=== PATIENT | male | born 1940 | race Caucasian/White ===

== ENCOUNTER 2018-07-13 10:20 | Day surgery (SDC) | payer MEDICARE ==
[~2018-07-13] VITALS: Ht 172.7 cm; Wt 70.3 kg
--- OUTSIDE RECORDS SUMMARY | ~2018-07-13 | XMS | Encounter Summary ---
Demographics + + + | Address | [address] | | | [place] [address] | + + + | Home Phone | | + + + | Preferred Language | Unknown | + + + | Marital Status | | + + + | Worship Affiliation | NON | + + + | Race | White | + + + | Ethnic Group | Not or | + + + Author + + + | Author | [facility] | + + + | Organization | [facility] | + + + | Address | Unknown | + + + | Phone | Unavailable | + + + Support + + + + + | Name | Relationship | Address | Phone | + + + + + | Elizabeth Welch | ECON | [address] | | | | | [place] | | | | | [phone] | | + + + + + Care Team Providers + +------+ + | Care Regulatory Process Manager Name | Role | Phone | + +------+ + | Doyle Johnson MD | PCP | | + +------+ + Reason for Visit + + + | Reason | Comments | + + + | Shoulder pain | | + + + Encounter Details +--------+---------+ + + + | Date | Type | Department | Care Team | Description | +--------+---------+ + + + | 08/14/ | Office | [place] [facility] | Rupesh, | Shoulder pain, right | | 2013 | Visit | Therapy Services at | Alise, PT [address] | (Primary Dx) | | | | [facility] | [address] | | | | | [address] | [place], [place] | | | | | Mailcode: [id number] | [phone] | | | | | [facility] | | | | | | and Healing, 1st | | | | | | floor [place], [place] | | | | | | [address] | | | | | | [phone] | | | +--------+---------+ + + + [...] documented as of this encounter Progress Notes Alise Washington, PT - 09/22/2013 9:46 AM PDT [id number] KEVON WELCH Date of : 1940 Start of care: 05/19/2013 Date of onset: 03/21/2013 Referring/Attending Practitioner: Misael Myers Primary/Referral Diagnosis/ICD-9: Shoulder pain, right (primary encounter diagnosis) Insurance: Payor: [employer] Plan: [employer] Product Type: P PO Service period from: 05/19/2013 to 01/18/2014 Number visits used/authorized: 08/20 [facility]REAT[facility] - [place]TH[place] SUBJECTIVE: Current: Notices continued gradual improvement. Now able to raise right arm as high as lef t, abduction is almost as high as other arm. Limited progress behind his back and continues to be painful. Shoulder ER improves with 2-3 stretches and is equal on both sides. Day to day things are getting easier. Can now reach and lift off of a shelf. Pain is located in posterior and lateral shoulder. History of Presenting Problem: Kevon Welch is a 72 y.o. male who is being referr ed to physical therapy with chief complaint of right shoulder pain for 2 months following he lping son carry chair up stairs. History of left shoulder surgery. History of right should er pain 15 years ago with carrying cement stones, had a rotator cuff tear at that time and w as told to "be careful" and pain went away within a year and a half. Pt is very right wisam Lund's Goals: 1. Return to full use of arm 2. Learn home exercise program OBJECTIVE: Posture/alignment/observation: rounded shoulders, mild inferior angle scapular winging RANGE OF MOTION Shoulder AROM Right Left Right 07/20/2013 Right 08/11/2013 Right 09/22/2013 Flexion 141 155 [id number] Pre 125* Post 140 145 Abduction 146 150 [id number] Pre 95* Post 132 144 ER at 90 deg abd 90 (60 at neutral) 90 79 no change Pre 48* no change 70 IR at 90 deg abd 24 75 *indicates pain with movement Pre and post relative to treatment. STRENGTH Shoulder strength Right Left flexion 4-*/5 4+/5 abduction 4-*/5 4+/5 ER 4-*/5 4+/5 IR 4-*/5 4+/5 Rhomboids Middle Trapezius Lower Trapezius Palpation: Tenderness with palpation of infraspinatus insertion, supraspinatus muscle belly and insert ion Manual therapy, 35 minutes: Posterior GH mobilization, grade II Inferior lateral GH mobilization, grade II CFM infraspinatus Contract relax for shoulder ER Therapeutic exercise, 10 minutes: Contract relax shoulder ER at corner, 3 x 30 sec ER with red band, 3 x 10 Isometric subscap behind back with red band, 10 x 5 sec hold Home exercise program as of 08/11/2013 Sidelying shoulder ER with 2# Rows with green band Extension rows with green band IR series behind back Table top shoulder flexion Wall walk shoulder flexion (adjusted 08/18/2013) Table top shoulder abduction ER stretch at corner Standing sleeper stretch against wall in ~70 degrees forward flexion (added 08/30/2013) ER with red band Isometric subscap behind back with red band ASSESSMENT: Kevon is a 72 year old male who presents with right shoulder pain for 4 months duration fol lowing carrying chair up flight of stairs. Kevon presents with significant improvement in sh oulder range of motion, tolerance for ADLs, and ability to sleep on right shoulder. He cont inues to have tenderness to palpation of infraspinatus and pain with activation. He has goo d improvement of range with contract relax. Overall, he is making good progress towards rafa g term goals. Kevon is progressing and will benefit from continued range of motion exercise juan pablo Lund requires services that can be safely and effectively performed only by a qualified therapist to address the following problems and achieve the following goals: DISCHARGE FUNCTIONAL GOALS, discussed with Kevon, due in 6 weeks: Pt will demonstrate 160 deg shoulder flexion in order to reach high shelf Pt will report washing back with 0/10 pain Pt will be independent with home exercise program 5/7 days PLAN OF CARE: Focus on home exercise program as pt lives in [place], [place] for posterior do minant shoulder strength Frequency/Duration: Follow up prn due to pt living in [place], [place] Treatment began: 946 am Treatment ended: 1031 am This note is to serve as the discharge summary if Kevon fails to attend further Physical Th erapy appointments or contact the therapist regarding any change in their status. Alise Washington, PT [facility] [address] Mailcode: [address] [phone] documented in this encounter Plan of Treatment Not on filedocumented as of this encounter Procedures + +--------+ + + + | Procedure Name | Priori | Date/Time | Associated Diagnosis | Comments | | | ty | | | | + +--------+ + + + | SD MANUAL THER | Routin | 09/22/2013 | Shoulder pain, | | | TECH,1+REGIONS,EA 15 | e | 12:19 PM | right | | | MIN | | PDT | | | + +--------+ + + + | SD THERAPEUTIC | Routin | 09/22/2013 | Shoulder pain, | | | EXERCISES | e | 12:19 PM | right | | | | | PDT | | | + +--------+ + + + documented in this encounter Visit Diagnoses + + | Diagnosis | + + | Shoulder pain, right - Primary Pain in joint, shoulder region | + + documented in this encounter
--- OUTSIDE RECORDS SUMMARY | ~2018-07-13 | XMS | Encounter Summary ---
Demographics + + + | Address | [address] | | | [place] [address] | + + + | Home Phone | | + + + | Preferred Language | Unknown | + + + | Marital Status | | + + + | Baptism Affiliation | NON | + + + | Race | White | + + + | Ethnic Group | Not or | + + + Author + + + | Author | [facility] | + + + | Organization | [facility] | + + + | Address | Unknown | + + + | Phone | Unavailable | + + + Support + + + + + | Name | Relationship | Address | Phone | + + + + + | Elizabeth Welch | ECON | [address] | | | | | [place] | | | | | [address] | | + + + + + Care Team Providers + +------+ + | Care Dry Transfer Man Name | Role | Phone | + [...] Description | +--------+---------+ + + + | 02/13/ | Office | [facility] | Rupesh, | Shoulder pain | | 2011 | Visit | Therapy Services at | Alise, PT [address] | (Primary Dx) | | | | [facility] | [address] | | | | | [address] | [place], [place] | | | | | Mailcode: CH3P | [address] | | | | | [facility] | | | | | | and Healing, 1st | | | | | | floor [facility] [place] | | | | | | [address] | | | | | | [phone] | | | +--------+---------+ + + + [...] as of this encounter Progress Notes Alise Acosta, PT - 02/13/2011 6:28 PM PST [id number] KEVON WELCH Date of : 1940 Start of care: 02/13/2011 Date of onset: 12/24/2010 Referring/Attending Practitioner: Misael Myers MD . Primary/Referral Diagnosis/ICD-9: Encounter Diagnoses Name Primary? Shoulder pain Yes Insurance: Payor: ODS MEDICARE Plan: ODS MEDICARE Product Type: PPO Service period from: 02/13/2011 to 03/12/2011 Number visits used/authorized: 02/09 [facility] EVALUATION: SHOULDER SUBJECTIVE: History of Presenting Problem: Kevon Welch is a 70 y.o. male who presents with l eft shoulder pain resulting in decreased strength and range of motion. Has noticed increasi ng pain since December of 2010. Pt is right hand dominant. History of right rotator cuff t ear, now fully healed and pain free. Mechanism of Injury: Unknown, possibly with helping friends move in weeks prior to onset of pain Past Medical History: has no past medical history on file. Past Surgical History: has no past surgical history on file. MEDICATIONS: meloxicam (MOBIC) 15 mg Oral Tablet, Take 1 Tab by mouth once daily. Previous treatment: none. 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 Decrease shoulder pain 2. Complete daily activities Symptom Pattern: Patient reports an average pain level of 4/10 Pain at worst: 8/10 for 3-4 minutes with "wrong" motions 24 hour pain pattern: varies with activity Aggravating factors: rotation, seat belt, avoids overhead reaching Alleviating factors: Hot shower Sleep: no issues Condition is becoming: worse OBJECTIVE: Posture/alignment: Rounded shoulders, forward head Palpation: denies tenderness Neuro Screen: Denies numbness and tingling UE MMT R L Shoulder Flexion 5/5 3+/5* Shoulder Extension NT NT Shoulder Abduction 5/5 3+/5* Shoulder External Rotation 5/5 3/5* Shoulder Internal Rotation 5/5 3/5* Note: Strength on a scale of 0-5, *pain UE ROM R (degrees) L (degrees) SITTING UPRIGHT Shoulder Flexion WNL 120* Shoulder Abduction WNL 90* Shoulder External Rotation 0* WNL 80* Shoulder Internal Rotation 0* WNL SI* Special Tests: Rob: Positive on left Empty/Full Can: Positive on left Drop Arm: Negative Telles/Julio: Positive on left Neer: Positive on left Painful arc: Positive on left TREATMENT TODAY: PT: Evaluation. Treatment consisted of teaching Kevon a home exercise program, written instruction was give n: IR stretch with towel behind back FF wall walk Isometric shoulder flexion and abduction with red theraband ER with red theraband Extension rows with red theraband ASSESSMENT: Kevon Pt presents with symptoms consistent with left rotator cuff impingement. 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 Kevon requires services that can be safely a nd effectively performed only by a qualified therapist to address the following problems and achieve the following goals: Problem List: 1. Decreased range of motion with pain at end range and with overpressure 2. Decreased strength limited by pain 3. Positive shoulder impingement signs 4. Inability to complete daily activities without pain Rehab Potential: Excellent GOALS, Discussed with patient, due in 6 weeks: 1. Increase strength of shoulder ER to 4+/5 without pain 2. Demonstrate understanding and independence HOME EXERCISE PROGRAM 3. Increase shoulder AROM to full and painfree 4. Normalize scapulo-humeral kinematics PLAN: There-ex, ther-act, manual therapy, modalities as indicated, neuromuscular re-ed, pat ient education Frequency/Duration: cont with PT closer to home in [facility] [place] Treatment began: 1005 Treatment ended: 1030 This note is to serve as the discharge summary if pt fails to attend further Physical Thera py appointments or contact the therapist regarding any change in their status. ALISE ACOSTA PT [facility] [address] Mailcode: [address] [address] documented in this encounter Plan of Treatment + + +--------+ + + | Name | Type | Priori | Associated Diagnoses | Order Schedule | | | | ty | | | + + +--------+ + + | REHABILITATION | Procedures | Routin | Shoulder pain | Ordered: 02/13/2011 | | MEDICARE | | e | | | | CERTIFICATION | | | | | + + +--------+ + + documented as of this encounter Procedures + +--------+ + + + | Procedure Name | Priori | Date/Time | Associated Diagnosis | Comments | | | ty | | | | + +--------+ + + + | [facility] | Routin | 02/13/2011 | Shoulder pain | | | EVALUATION | e | 6:44 PM | | | | | | PST | | | + +--------+ + + + documented in this encounter Visit Diagnoses + + | Diagnosis | + + | Shoulder pain - Primary Pain in joint, shoulder region | + + documented in this encounter
--- OUTSIDE RECORDS SUMMARY | ~2018-07-13 | XMS | Encounter Summary ---
Demographics + + + | Address | [address] | | | [place] [address] | + + + | Home Phone | | + + + | Preferred Language | Unknown | + + + | Marital Status | | + + + | Yarsani Affiliation | NON | + + + [...] [place] | | | | | [address] | | + + + + + Care Team Providers + +------+ + | Care Sql Etl Developer Name | Role | Phone | + [...] | | shoulder | Provider Per | [address] | | | | | pain | Patient NO | [place] | | | | | | REFERRING | Dejan Onofre | | | | | | PROVIDER PER | [place] | | | | | | [place] | [address] | | | | | | | Phone: | | | | | | | [phone] | | | | | | | Fax: | | | | | | | [phone] | +--------+--------+ + + + + Encounter Details +--------+---------+ + + + | Date | Type | Department | Care Team | Description | +--------+---------+ + + + | 02/13/ | Office | Orthopaedics at | Misael Myers MD | Shoulder pain; | | 2011 | Visit | [facility] [address] | [address] [facility] | Rotator cuff | | | | [place] Mailcode: CH12A | [address] | tendinitis; | | | | [facility] | [facility] [place] | Disorders of bursae | | | | and Healing, | [address] | and tendons in | | | | Floor [facility] [place] | [phone] | shoulder region, | | | | [address] | | unspecified | | | | [phone] | | | +--------+---------+ + + + [...] Speed's biceps test was ne gative. and Fields's test was positive. The patient had normal [...]
--- OUTSIDE RECORDS SUMMARY | ~2018-07-13 | XMS | Encounter Summary ---
Demographics + + + | Address | [address] | | | [place] [address] | + + + | Home Phone | | + + + | Preferred Language | Unknown | + + + | Marital Status | | + + + | Christianity Affiliation | NON | + + + | Race | White | + + + | Ethnic Group | Not or | + + + Author + + + | Author | [facility] | + + + | Organization | [facility] | + + + | Address | Unknown | + + + | Phone | Unavailable | + + + Support + + + + + | Name | Relationship | Address | Phone | + + + + + | Elizabeth Welch | ECON | [address] | | | | | [place] | | | | | [address] | | + + + + + Care Team Providers + +------+ + | Care Steward/Stewardess Bath Name | Role | Phone | + [...] | | | Therapy | Shoulder | IVANEY Eli | [address] | | | | | pain | [address] | [address] [place] | | | | | Procedures | [place] [place] | Mailcode: | | | | | PHYSICAL | Rd | [facility] | | | | | THERAPY | [place], [place] | for Health | | | | | REFERRAL | [address] | and Healing, | | | | | | Phone: | 1st floor | | | | | | [phone] | [place], [place] | | | | | | Fax: | [address] | | | | | | [phone] | Phone: | | | | | | | [phone] | | | | | | | Fax: | | | | | | | [phone] | +--------+--------+ + + + + Encounter Details +--------+---------+ + + + | Date | Type | Department | Care Team | Description | +--------+---------+ + + + | 10/08/ | Office | [facility] | Philly Rain, | Low back pain | | 2011 | Visit | Therapy Services at | PT [address] | (Primary Dx); | | | | [facility] | [address] | Herniated lumbar | | | | [address] | [place], [place] | intervertebral disc; | | | | Mailcode: CH3P | [phone] | Lumbar | | | | [facility] | | radiculopathy; | | | | and Healing, 1st | | Degeneration of | | | | floor [place], [place] | | lumbar | | | | [address] | | intervertebral disc | | | | [phone] | | | +--------+---------+ + + + [...] documented as of this encounter Progress Notes Philly Rain, PT - 10/09/2011 9:31 AM PDTFormatting of this note might be different fr om the original. [id number] KEVON WELCH Date of : 1940 Start of care: 10/09/2011 Date of onset: 09/10/11 Referring/Attending Practitioner: Alcira Bocanegra PA . Primary/Referral Diagnosis/ICD-9: 724.2A Low back pain Insurance: Payor: ODS MEDICARE Plan: ODS MEDICARE Product Type: PPO Service period from: 10/09/2011 to: 11/08/11 Number visits used/authorized: 1/ Neurologist: [facility] [address] [place] [address] (Office) [facility] PHYSICAL THERAPY INITIAL EVALUATION SUBJECTIVE Age: 71 y.o. Sex: male Chief complaint: Chief Complaint Patient presents with LBP - Low back pain History of Presenting Problems: Kevon Welch is a 71 y.o. male with c/o LBP that began about a month ago. He was bending over to cone picker a garden hose and felt increased [...] its exit point by the disc herniation" Sees a neuro surgeon on 10/29/11 for surgical consult. Taking: kisha Valdes PAIN PATTERN: Kevon rates his pain on a scale of 0-10, worse as a 1-2/10 . The pain is located R LB, R L5-S1 Condition is improving . Symptoms are intermittent. Daily pattern of pain: worse in the am, better with walking; has not been doing any bending or lifting, sleeping in any position is worse; changing positions helps Symptoms are aggravated by: sitting and lifting, lying. Pain is relieved by: walking. Previous treatment for this condition includes: chiropractic. Concurrent medical treatment: Seeing neurologist and PCP Other meds: No current outpatient prescriptions on file. Past Medical History 08/04/11 Procedure: 1. left [...] history that includes lipoma exicison 2002; UPPP 2006; knee procedure 1958; and colonoscopy-last 2009. Social History: lives with Recreational Activities/Hobbies: plays [id number]; reading; does a lot of computer/keyboarding Functional limitations:Walking more than 2 blocks he starts to feel fatigue in anterior tib ialis Patients goals: resume prior level of function, decrease pain OBJECTIVE:Observation: Flattened lumbar curve, mild rounded shoulders, no lateral shift det ected Posture Single leg balance: R 30 (less steady) L 30 sec eyes open; 3 sec R 10 sec L eyes closed Lumbar AROM (%) Motion 10/09/2011 Flexion: 60 painful Extension: 25 painful SB R 20 painful on R SB L: 20 not painful Lower Extremity ROM: Lower Quarter Neuro Screen Segmental Strength Test Right Left Impact Test L1-3 hip flexion 4 4+ L3 knee Extension 4 4+ L4 Ankle DF 4- 4+ L5 EHL 4 4+ L5-V4Lofsi Eversion 4 5 S1 Calf Raises 5 5 S1 Hamstrings 4+ 4+ S1-2 Great toe flexion 5 5 Reflex Scores: Patellar reflexes are 2+ on the right side and 3+ on the left side. Achilles reflexes are 2+ on the right side and 2+ on the left side. Sensory Light Touch 0= Absent 1= decreased Location L R L2 (Med. Thigh) NORMAL R=L L3 (Med. Knee) NORMAL R=L L4 (Med. Mall.) NORMAL R=L L5 (Mid. Toe) NORMAL R=L S1 (Lat. Heel) NORMAL R=L Central: Clonus: negative B, Babinski: negative B Lower Quarter Neurodynamics: Test 10/09/2011 Sit slump: Right: positive Left: positive SLR: Right: positive Left: positive Femoral Right: not done Left: not done Special tests: Prone lumbar extension: NT Standing Fwd Bend:+ R LB Seated Fwd Flexion:NT Standing hip flexion: R more pelvic posterior rotation, no pain Jan: NT Craigs test: NT Hip Quadrant: NT Flexibility: Test next prn Lumbar PIVMs: Test Next prn Lumbar PAIVMs: Test next prn Palpation: TTP at R paralumbars at L4-S1 Risks and Benefits of treatment explained/discussed with patient. Patient agrees to proceed with Rx plan as outlined. THERAPEUTIC EXERCISE x10 min Seated Sciatic nerve glides: Seated ankle DF/PF:10x Seated HS glides:10x Seated Chin tucks/Head nods:10x No pull or pain THERAPEUTIC ACTIVITY x5 min Discussed proper sitting and sleeping postures, using pillow support as needed Continue frequent walking, avoid sitting greater than 30 min at time Discussed nature of disc injury; need to maintain spinal curves as able to decrease stress on discs Avoid lifting; use golfer lift or maintain proper spinal alignment with squatting Response to treatment: Tolerated well ASSESSMENT: Pt presents with signs and symptoms consistent 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 Pt has + neural signs with + contralate ral and ipsilateral STRAIGHT LEG RAISE and slump signs, as well as weakness in the L4 myotom e (ankle DF). Pt demonstrates decreased balance and decreased functional lumbar ROM as well . Pt would benefit form formalized PT Rehab Potential: Good, if Kevon carries through with home exercise program. Obstacles to rehabilitation/Co-morbidities that affect goals and treatment plan: L shoulder stiffness and weakness due to recent shoulder arthroscopic surgery. Kevon's Goals: decrease pain in R LE [...] 60 minutes without exacerbating pain 12 weeks Goals discussed and agreed upon with Kevon. Individual cultural and social needs addressed. PLAN: Recheck nerve glides instructed today, modify or progress as tolerated Add Brendan exercises, consider manual traction techniques as indicated Caution with exercises supine as pt has pain with laying manual therapy, postural education, lumbo-pelvic stabilisation training , neurodynamic mobi lisation, strength and conditioning. Frequency/Duration: 1-2x per week, decreasing frequency to accomadate long drive from [place] Duration in months: 1-2months Treatment began: 919 Treatment ended: 1014 This note is to serve as the discharge summary if Kevon fails to attend further Physical Th erapy appointments or contact the therapist regarding any change in their status. PHILLY RAIN PT [facility] [address] Mailcode: [address] [facility] [facility] [address] documented in this e ncounter Plan of Treatment Not on filedocumented as of this encounter Procedures + +--------+ + + + | Procedure Name | Priori | Date/Time | Associated Diagnosis | Comments | | | ty | | | | + +--------+ + + + | [facility] THERAPEUTIC | Routin | 10/09/2011 | Low back pain | | | EXERCISES | e | 1:53 PM | | | | | | PDT | | | + +--------+ + + + | [facility] | Routin | 10/09/2011 | Low back pain | | | EVALUATION | e | 1:53 PM | | | | | | PDT | | | + +--------+ + + + documented in this encounter Visit Diagnoses + + | Diagnosis | + + | Low back pain - Primary Lumbago | + + | Herniated lumbar intervertebral disc Displacement of lumbar intervertebral disc | | without myelopathy | + + | Lumbar radiculopathy Thoracic or lumbosacral neuritis or radiculitis, unspecified | + + | Degeneration of lumbar intervertebral disc Degeneration of lumbar or lumbosacral | | intervertebral disc | + + documented in this encounter
--- OUTSIDE RECORDS SUMMARY | ~2018-07-13 | XMS | Encounter Summary ---
Demographics + + + | Address | [address] | | | [place] [address] | + + + | Home Phone | | + + + | Preferred Language | Unknown | + + + | Marital Status | | + + + | Anglican Affiliation | NON | + + + | Race | White | + + + | Ethnic Group | Not or | + + + Author + + + | Author | [facility] | + + + | Organization | [facility] | + + + | Address | Unknown | + + + | Phone | Unavailable | + + + Support + + + + + | Name | Relationship | Address | Phone | + + + + + | Elizabeth Welch | ECON | [address] | | | | | [place] | | | | | [address] | | + + + + + Care Team Providers + +------+ + | Care Ceo Ziff Davis Name | Role | Phone | + [...] | | shoulder | Provider Per | [address] | | | | | pain | Patient NO | Celestine Morales | | | | | | REFERRING | Dejan Onofre | | | | | | PROVIDER PER | [place] | | | | | | PT | [address] | | | | | | | Phone: | | | | | | | [phone] | | | | | | | Fax: | | | | | | | [phone] | +--------+--------+ + + + + Encounter Details +--------+---------+ + + + | Date | Type | Department | Care Team | Description | +--------+---------+ + + + | 06/29/ | Office | Orthopaedics at | Katty Chairez PA | Other specified | | 2011 | Visit | [place] [address] | [address] | pre-operative | | | | Ave Mailcode: CH12A | [place], [place] | examination (Primary | | | | [facility] | [address] | Dx) | | | | and Healing, 12th | [phone] | | | | | Floor [place], [place] | | | | | | [address] | | | | | | [phone] | | | +--------+---------+ + + + [...] + + documented as of this encounter Patient Instructions Patient Instructions Kathleen Mejia 06/06/2011 12:54 PM PDT Registration Locations (please check in at one of the following registration desks prior to surgery) For surgeries scheduled to take place on the hill at the [facility]: Surgeries scheduled in the [facility] (4 North): registration is located on the 4th floor of [facility] (Day Surgery). Surgeries scheduled in the [facility]: registration is located on the 9th floor. Surgeries scheduled in [facility]: registration is located on the 6th floor. Surgeries scheduled in the [facility]: registration is located i n the [facility] on the first floor. For surgeries scheduled to take place at the [facility]: registration is l ocated on the 4th floor (Surgery Center). Important Information Due to the increased prevalence of pests in our community, we are asking patients to partne r with us to keep our hospital clean. If you have noticed bugs or other pests in your home, on your belongings or on your body, please contact your doctor's office prior to your admis reddy. For your safety and protection, please limit what you bring to the hospital. All valuables should be left at home. This includes pillows, blankets, clothing, purses, wallets, money an d jewelry. Patients may not bring personal electronics into the hospital, including hairdry ers, electric lara, radios and CD players. If you use specialized medical equipment at [facility], please check with your provider before bringing it with you into the hospital. Registration Process for all Admissions/Surgeries 1. Please bring your insurance card(s) with you and be prepared to pay any co-payment, co-i nsurance or deposit that may be required. 2. Once you arrive at the registration desk, you will be interviewed by a Patient Access Se rvice Specialist (THERESE). Demographics will be verified (example: name, date of , Social Security Number, address, insurance). 3. You will be asked to sign some paperwork: Terms and Conditions of Service, Notice of Roma vacy Practices Acknowledgement and Genetic Testing Opt Out. 4. 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 Had moderate episodes prior to surgery. He currently does not experience episodes but sometimes wakes up and takes a deep breath. Does not currently use cpap Bilateral hearing aides Had lab work done recently by pcp, has it with him ekg if not done Not currently taking any medications, was previously on mobic NPO instructions given Risks and benefits reviewed Skin checked at left axilla, shoulder area Pain meds given documented in this encou nter Plan of Treatment Not on filedocumented as of this encounter Visit Diagnoses + + | Diagnosis | + + | Other specified pre-operative examination - Primary | + + documented in this encounter"
--- OUTSIDE RECORDS SUMMARY | ~2018-07-13 | XMS | Encounter Summary ---
Demographics + + + | Address | [address] | | | [place] [address] | + + + | Home Phone | | + + + | Preferred Language | Unknown | + + + | Marital Status | | + + + | Latter-Day Affiliation | NON | + + + | Race | White | + + + | Ethnic Group | Not or | + + + Author + + + | Author | [facility] | + + + | Organization | [facility] | + + + | Address | Unknown | + + + | Phone | Unavailable | + + + Support + + + + + | Name | Relationship | Address | Phone | + + + + + | Elizabeth Welch | ECON | [address] | | | | | [place] | | | | | [address] | | + + + + + Care Team Providers + +------+ + | Care Folder Machine Operator Name | Role | Phone [...] | | | | | THERAPY | [facility] [place] | for Health | | | | | REFERRAL | [address] | and Healing, | | | | | | Phone: | 1st floor | | | | | | [phone] | [place], [place] | | | | | | Fax: | [address] | | | | | | [phone] | Phone: | | | | | | | [phone] | | | | | | | Fax: | | | | | | | [phone] | +--------+--------+ + + + + Encounter Details +--------+---------+ + + + | Date | Type | Department | Care Team | Description | +--------+---------+ + + + | 11/02/ | Office | [facility] | Lena Rain, | Shoulder pain | | 2011 | Visit | Therapy Services at | PT [address] | (Primary Dx) | | | | [facility] | [facility] [address] | | | | | [address] | [facility] [place] | | | | | Mailcode: CH3P | [address] | | | | | [facility] | | | | | | and Healing, 1st | | | | | | floor [place], [place] | | | | | | [address] | | | | | | [phone] | | | +--------+---------+ + + + [...] encounter Progress Notes Lena Rain, PT - 11/03/2011 11:55 AM PDTFormatting of this note might be different fr om the original. [id number] KEVON WELCH Date of : 1940 Start of care: 07/24/11 Date of onset:07/22/11 Referring/Attending Practitioner: Misael Myers MD . Primary/Referral Diagnosis/ICD-9: Encounter Diagnoses Name Primary? Shoulder pain Yes Insurance: Payor: [employer] MEDICARE Plan: ODS MEDICARE Product Type: PPO Service period from: 08/24/11-11/22/11 Number visits used/authorized: 7 [facility] PHYSICAL THERAPY: Post-op SHOULDER PO week S/P Arthroscopic SAD, DCE, labral debridement Subjective: Pt reports that his shoulder pain is mostly resolved Has some residual biceps pain in the anterior shoulder, as well as pain at end range GLASS BELT SANDER AL ROTATION States he has been doing his exercises, though inconsistently due to his recent back injury that he will be having surgery on, likely in the next few weeks Bicipital pain and knot in that proximal arm area continues to be getting better now with s tretching, though he noticed it again today Pain <1/10 at rest History of Presenting Problem: Kevon Welch is [...] protocol OBJECTIVE: Posture/alignment: Rounded shoulders, forward head Palpation:mild TTP LH bicep; bicep -firm mm knot in at insertion of deltoid and biceps-pre sent AROM: FLEX 130 (hiking of L shoulder at end range) EXTERNAL ROTATION At side 58 degrees at 45 degrees abd INTERNAL ROTATION Behind back T10 PROM: pre RX FLEX 140 degrees supine ER: 60 degrees at 90 degrees ABD MANUAL THERAPY x30 Soft tissue mobilization biceps and deltoid to reduce mm spasm and guarding PROM for SCAPTION, ER at 45 deg abd and 90 deg abd; LLPS 5 min each direction Soft tissue mobilization periscapula, posterior shoulder Subscapularis release with scapular distraction Grade 1-2 joint mobilization for GH joint for pain relief THERAPEUTIC EXERCISE x15 Treatment consisted of reviewing post operative home exercise program And progressing Exercises streamlined as he is also doing LB HOME EXERCISE PROGRAM, handout given: Sidelying EXTERNAL ROTATION With no weight 3x12 Standing B EXTERNAL ROTATION With yellow Tband 1x12 (increase up to 3 sets) TV watching stretch supine with towel rolls supporting weight of elbow x 5 min Standing Ext with yellow Tband 3x12 INTERNAL ROTATION Behind the back stretch with towel 3x60 sec Can continue table stretches for flexion and scaption, as well as biceps stretch behind the back ASSESSMENT: Pt's PROM and AROM as well as functional use of L UE improved [facility] Pt still working on mid to end ranges that are still quite uncomfortable Pt lacks good scapulohumeral rhythm due to weakness of periscapular mm and ROTATOR CUFF, ho wever this should improve with new exercises Pt has some limitations and caution to be taken with shoulder exercises due to his current low back injury/herniation GOALS, Discussed with patient, due in 16-24 weeks: (modified due to recent low back injury ) 1. Increase strength of ROTATOR CUFF/ER to 4/5; periscapular mm to 4+/5-progressing 2. Demonstrate understanding and independence HOME EXERCISE PROGRAM-progressing 3. Increase shoulder AROM to full and painfree-progressing 4. Normalize scapulo-humeral kinematics-progressing PLAN: Continue to address limitation in ROM as well as strengthening of ROTATOR CUFF and scapular retraining Recommend 1 x week for shoulder for 2-3 weeks to continue progressing; then decrease to 1x every 2 weeks for 4 more weeks as needed Follow up on plan for back surgery and adjust HOME EXERCISE PROGRAM to coincide with surgic al precautions as necessary Therapeutic exercise, Manual Therapy, Therapeutic Activity, Manual Therapy, Neuromuscular R e-Education, Gait Training, Modalities as needed, Pt. Education, HOME EXERCISE PROGRAM Per protocol. Reinforce precautions. Treatment began: 734 Treatment ended: 824 Reviewed cancel/no show policy with patient. Pt voiced understanding. "At times we understand you must cancel. We request that all cancellations be made at as 24 hours in advance by calling [phone]. Our office is open 7am-6pm and there is a [email or web address] ssage line 24 hours a day. Any [...] change in their status. LENA RAIN PT [facility] REHABILITATION SERVICES AND HAND THERAPY [address] Mailcode: [address] [facility], [address] [place] [phone] documented in this e ncounter Plan of Treatment Not on filedocumented as of this encounter Procedures + +--------+ + + + | Procedure Name | Priori | Date/Time | Associated Diagnosis | Comments | | | ty | | | | + +--------+ + + + | [place] MANUAL THER | Routin | 11/03/2011 | Shoulder pain | | | TECH,1+REGIONS,EA 15 | e | 12:22 PM | | | | MIN | | PDT | | | + +--------+ + + + | RI THERAPEUTIC | Routin | 11/03/2011 | Shoulder pain | | | EXERCISES | e | 12:22 PM | | | | | | PDT | | | + +--------+ + + + documented in this encounter Visit Diagnoses + + | Diagnosis | + + | Shoulder pain - Primary Pain in joint, shoulder region | + + documented in this encounter
--- OUTSIDE RECORDS SUMMARY | ~2018-07-13 | XMS | Encounter Summary ---
Demographics + + + | Address | [address] | | | [place] [address] | + + + | Home Phone | | + + + | Preferred Language | Unknown | + + + | Marital Status | | + + + | Congregation Affiliation | NON | + + + | Race | White | + + + | Ethnic Group | Not or | + + + Author + + + | Author | [facility] | + + + | Organization | [facility] | + + + | Address | Unknown | + + + | Phone | Unavailable | + + + Support + + + + + | Name | Relationship | Address | Phone | + + + + + | Elizabeth Welch | ECON | [address] | | | | | [place] | | | | | [address] | | + + + + + Care Team Providers + +------+ + | Care Utility Manager Name | Role | Phone | + +------+ + | Doyle Johnson MD | PCP | Unavailable | + +------+ + Reason for Visit + + + | Reason | Comments | + + + | Shoulder pain | | + + + Encounter Details +--------+ + + + + | Date | Type | Department | Care Team | Description | +--------+ + + + + | 10/05/ | Telephone | [facility] | Philly Rain, | Shoulder pain | | 2011 | | Therapy Services at | PT [address] [facility] [address] | | | | | [facility] | [address] | | | | | [address] | [place], [place] | | | | | Mailcode: CH3P | [phone] | | | | | [facility] | | | | | | and Healing, 1st | | | | | | floor [place], [place] | | | | | | [address] | | | | | | [phone] | | | +--------+ + + + [...]
--- OUTSIDE RECORDS SUMMARY | ~2018-07-13 | XMS | Encounter Summary ---
Demographics + + + | Address | [address] | | | [place] [address] | + + + | Home Phone | | + + + | Preferred Language | Unknown | + + + | Marital Status | | + + + | Denominational Affiliation | NON | + + + | Race | White | + + + | Ethnic Group | Not or | + + + Author + + + | Author | [facility] | + + + | Organization | [facility] | + + + | Address | Unknown | + + + | Phone | Unavailable | + + + Support + + + + + | Name | Relationship | Address | Phone | + + + + + | Elizabeth Welch | ECON | [address] | | | | | [place] | | | | | [address] | | + + + + + Care Team Providers + +------+ + | Care Acquisition Professional Name | Role | Phone | + [...] | | | | | THERAPY | [facility] [place] | for Health | | | | | REFERRAL | [address] | and Healing, | | | | | | Phone: | 1st floor | | | | | | [phone] | [facility] [place] | | | | | | Fax: | [address] | | | | | | [phone] | Phone: | | | | | | | [phone] | | | | | | | Fax: | | | | | | | [phone] | +--------+--------+ + + + + Encounter Details +--------+---------+ + + + | Date | Type | Department | Care Team | Description | +--------+---------+ + + + | 10/22/ | Office | [facility] | Lena Rain, | Herniated lumbar | | 2011 | Visit | Therapy Services at | PT [address] | intervertebral disc; | | | | [facility] | [address] | Degeneration of | | | | [address] | [place], [place] | lumbar | | | | Mailcode: CH3P | [phone] | intervertebral disc; | | | | [facility] | | Low back pain; | | | | and Healing, 1st | | Lumbar radiculopathy | | | | floor [place], [place] | | | | | | [address] | | | | | | [phone] | | | +--------+---------+ + + + [...] might be different fr om the original. [id number] KEVON WELCH Date of : 1940 Start of care: 10/09/2011 Date of onset: 09/10/11 Referring/Attending Practitioner: Alcira Bocanegra PA . Primary/Referral Diagnosis/ICD-9: 722.10H Herniated lumbar intervertebral disc Insurance: Payor: ODS MEDICARE Plan: ODS MEDICARE Product Type: PPO Service period from: 10/09/2011 to: 11/08/11 Number visits used/authorized: 5/ Neurologist: Dr. Lyles [facility] [address] [place] [address] (Office) [facility] PHYSICAL THERAPY SUBJECTIVE Age: 71 y.o. Sex: [...] month ago. 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 LENA RAIN PT [facility]IL[facility] AND HAND THERAPY [address] Mailcode: [facility], [address] [place] [phone] documented in this e ncounter Plan of Treatment Not on filedocumented as of this encounter Procedures + +--------+ + + + | Procedure Name | Priori | Date/Time | Associated Diagnosis | Comments | | | ty | | | | + +--------+ + + + | [place] THERAPEUTIC | Routin | 10/23/2011 | Herniated [...]
--- OUTSIDE RECORDS SUMMARY | ~2018-07-13 | XMS | Encounter Summary ---
Demographics + + + | Address | [address] | | | [place] [address] | + + + | Home Phone | | + + + | Preferred Language | Unknown | + + + | Marital Status | | + + + | Mandaeism Affiliation | NON | + + + [...] [place] | | | | | [address] | | + + + + + Care Team Providers + +------+ + | Care Wind Turbine Service Technician Name | Role | Phone | + +------+ + | Doyle Johnson MD | PCP | | + +------+ + Encounter Details +--------+ + + + + | Date | Type | Department | Care Team | Description | +--------+ + + + + | 05/19/ | Hospital | Radiology/Imaging | | | | 2013 | Encounter | Lab at [facility] [address] | | | | | [address] Mailcode: | | | | | | [facility] | [facility] | | | [facility] and Healing, | | | | | | [address] [place] [address], | | | | | | [place] [address] | | | | | | [phone] | | | +--------+ + + + [...] | + +--------+ + + + | X-RAY SHOULDER 3+ | Routin | 05/19/2013 | Shoulder pain | Results for this | | VIEWS RIGHT | e | 9:41 AM | | procedure are in the | | | | PDT | | results section. | + +--------+ + + + documented in this encounter Results X-RAY SHOULDER 3+ VIEWS [...] YANCY | | | | | | AMBRE DUKESuthor: | | | | | | [...] Final/Electronically | | | | | | claribel / YANCY | | | | | [...] | | + +---------+ + + | [facility] DEPARTMENT OF | | | | | RADIOLOGY | | | | + +---------+ + + documented in this encounter Visit Diagnoses + + | Diagnosis | + + | Shoulder pain Pain in joint, shoulder region | + + documented in this encounter"
--- OUTSIDE RECORDS SUMMARY | ~2018-07-13 | XMS | Encounter Summary ---
Demographics + + + | Address | [address] | | | [place] [address] | + + + | Home Phone | | + + + | Preferred Language | Unknown | + + + | Marital Status | | + + + | Roman Catholic Affiliation | NON | + + + | Race | White | + + + | Ethnic Group | Not or | + + + Author + + + | Author | [facility] | + + + | Organization | [facility] | + + + | Address | Unknown | + + + | Phone | Unavailable | + + + Support + + + + + | Name | Relationship | Address | Phone | + + + + + | Elizabeth Welch | ECON | [address] | | | | | [place] | | | | | [address] | | + + + + + Care Team Providers + +------+ + | Care Conservation Coordinator Name | Role | Phone | + [...] +--------+--------+ + + + + Encounter Details +--------+ + + + + | Date | Type | Department | Care Team | Description | +--------+ + + + + | 07/21/ | Hospital | [facility] | Misael Myers MD | | | 2011 | Encounter | ST[address] | [address] | | | | | [facility] | [facility] | | | | | FOR HEALTH AND | [place], [place] | | | | | [facility], | [address] | | | | | [place] [address] | [phone] | | | | | [phone] | | | +--------+ + + + [...] patient satisfaction survey from "Kristin Serrano". We w ould appreciate your feedback on the survey to [...] + documented in this encounter Visit Diagnoses Not on filedocumented in this encounter Administered Medications + +---------+ + + +------+ | Medication Order | MAR | Action | Dose | Rate | Site | | | Action | Date | | | | + +---------+ + + +------+ | lactated ringers IV 10 mL/hr, | New Bag | 07/22/19 | 10 mL/hr | 10 mL/hr | | | intravenous, PROCEDURE | | 12 6:48 | | | | | CONTINUOUS, Starting 07/22/11 | | AM PDT | | | | | at 0615, Until Thu07/22/11 at | | | | | | | 1327 | | | | | | + +---------+ + + +------+ +---+---+ | | | +---+---+ documented in this encounter
--- OUTSIDE RECORDS SUMMARY | ~2018-07-13 | XMS | Encounter Summary ---
Demographics + + + | Address | [address] | | | [place] [address] | + + + | Home Phone [...] + + + | Author | [facility] | + + + | Organization | [facility] | + + + | Address | Unknown | + + + | Phone | Unavailable | + + + Support + + + + + | Name | Relationship | Address | Phone | + + + + + | Elizabeth Welch | ECON | [address] | | | | | [place] | | | | | [address] | | + + + + + Care Team Providers + +------+ + | Care Oriental Rug Stretcher Name | Role | Phone | + [...] | | | | | | | [address] | | | | | | | [address] | | | | | | | [place], | | | | | | | [place] | | | | | | | [address] | | | | | | | Phone: | | | | | | | [phone] | | | | | | | Fax: | | | | | | | [phone] | +--------+--------+ + + + + Encounter Details +--------+---------+ + + + | Date | Type | Department | Care Team | Description | +--------+---------+ + + + | 04/21/ | Office | Orthopaedics at | Misael Myers MD | Right shoulder pain, | | 2017 | Visit | [facility] [address] | [address] | unspecified | | | | Ave Mailcode: CH12A | [address] | chronicity (Primary | | | | [facility] | [place], [place] | Dx) | | | | and Healing, | [address] | | | | | Floor [place], [place] | [phone] | | | | | [address] | | | | | | [phone] | | | +--------+---------+ + + + [...]
--- OUTSIDE RECORDS SUMMARY | ~2018-07-13 | XMS | Encounter Summary ---
Demographics + + + | Address | [address] | | | [place] [address] | + + + | Home Phone [...] [place] | | | | | [address] | | + + + + + Care Team Providers + +------+ + | Care Pneumatic Jacketer Name | Role | Phone | + [...] | | | | | Procedures | [facility] | Mailcode: | | | | | PHYSICAL | Rd | [facility] | | | | | THERAPY | [place], [place] | for Health | | | | | REFERRAL | [address] | and Healing, | | | | | | | 1st floor | | | | | | | [place], [place] | | | | | | | [address] | | | | | | | Phone: | | | | | | | [phone] | | | | | | | Fax: | | | | | | | [phone] | +--------+--------+ + + + + Encounter Details +--------+---------+ + + + | Date | Type | Department | Care Team | Description | +--------+---------+ + + + | 10/19/ | Office | [facility] | Rupesh, | Shoulder pain, right | | 2013 | Visit | Therapy Services at | Alise, PT [address] | (Primary Dx) | | | | [facility] | [address] | | | | | [address] | [place], [place] | | | | | Mailcode: [facility] | [address] | | | | | [facility] | | | | | | and Healing, 1st | | | | | | floor [place], [place] | | | | | | [address] | | | | | | [phone] | | | +--------+---------+ + + + [...] as of this encounter Progress Notes Alise Washington PT - 10/19/2013 10:15 AM PDT [id number] KEVON WELCH Date of : 1940 Start of care: 05/19/2013 Date of onset: 03/21/2013 Referring/Attending Practitioner: Misael Myers Primary/Referral Diagnosis/ICD-9: Shoulder pain, right (primary encounter diagnosis) Insurance: Payor: [employer] MEDICARE Plan: [employer] MED[employer]ARE Product Type: P PO Service period from: 05/19/2013 to 01/18/2014 Number visits used/authorized: 09/20 [facility] PHYSICAL THER[facility] TREATMENT - ORTHO SUBJECTIVE: Current: Shoulder is steadily improving. Primary limitation is reaching behind the back. Feels he is able to pretty much move right arm as far as left except behind back. Able to r each overhead but has to go slower on right than left. Was able to hold 2 gallon bucket wit h arm outstretched. History of Presenting Problem: Kevon Welch is [...] a half. Pt is very right wisam d. Kevon's Goals: 1. Return to full use of arm 2. Learn home exercise program OBJECTIVE: Posture/alignment/observation: rounded shoulders, mild inferior angle scapular winging RANGE OF MOTION Shoulder AROM Right Left Right 07/20/2013 Right 08/11/2013 Right 09/22 Right/Left 10/18/2013 Flexion 141 155 [id number]* [id number] Pre 125* Post 140 145 145/150 Abduction 146 150 pur487* tvpl212 Pre 95* Post 132 144 140/145 ER at 90 deg abd 90 (60 at neutral) 90 79 no change Pre 48* no change 70 82/84 IR at 90 deg abd 24 75 L5/T7 *indicates pain with movement Palpation: Tenderness with palpation of infraspinatus insertion, supraspinatus muscle belly and insert ion Manual therapy, 25 minutes: Posterior GH mobilization, grade III in neutral and 90 deg abduction CFM infraspinatus Contract relax for shoulder IR Therapeutic exercise, 20 minutes: Cross body pec stretch, 3 x 30 sec Contract relax shoulder IR in supine and at wall, 3 x 30 sec ER with blue band, 3 x 10 Isometric subscap behind [...] carrying chair up flight of stairs. Kevon with continued pain and limited motion with behind the back IR. Pt with decreased posterior capsule length and able to achieve good st retch with cross body abduction. Good compliance with home exercise program and may benefit from 1 additional PT visit to re-assess. Kevon requires services that can be safely and ef fectively performed only by a qualified therapist to address the following problems and achi miguel the following goals: DISCHARGE FUNCTIONAL GOALS, discussed with Kevon, due in 6 weeks: Pt will demonstrate 160 deg shoulder flexion in order to reach high shelf Pt will report washing back with 0/10 pain Pt will be independent with home exercise program 5/7 days PLAN OF CARE: Focus on home exercise program as pt lives in [facility] [place], [place] for posterior do minant shoulder strength Frequency/Duration: Follow up prn due to pt living in [place] [facility] [place], [place] Treatment began: 1015 am Treatment ended: 1100 am This note is to serve as the discharge summary if Kevon fails to attend further Physical Th erapy appointments or contact the therapist regarding any change in their status. Alise Washington, PT [facility] THERAPY [address] Mailcode: [place] [address] documented in this encounter Plan of Treatment Not on filedocumented as of this encounter Procedures + +--------+ + + + | Procedure Name | Priori | Date/Time | Associated Diagnosis | Comments | | | ty | | | | + +--------+ + + + | [place] MANUAL THER | Routin | 10/19/2013 | Shoulder pain, | | | TECH,1+REGIONS,EA 15 | e | 12:14 PM | right | | | MIN | | PDT | | | + +--------+ + + + | [place] THERAPEUTIC | Routin | 10/19/2013 | Shoulder pain, | | | EXERCISES | e | 12:14 PM | right | | | | | PDT | | | + +--------+ + + + documented in this encounter Visit Diagnoses + + | Diagnosis | + + | Shoulder pain, right - Primary Pain in joint, shoulder region | + + documented in this encounter
--- OUTSIDE RECORDS SUMMARY | ~2018-07-13 | XMS | Encounter Summary ---
Demographics + + + | Address | [address] | | | [place] [address] | + + + | Home Phone | | + + + | Preferred Language | Unknown | + + + | Marital Status | | + + + | Judaism Affiliation | NON | + + + | Race | White | + + + | Ethnic Group | Not or | + + + Author + + + | Author | [facility] | + + + | Organization | [facility] | + + + | Address | Unknown | + + + | Phone | Unavailable | + + + Support + + + + + | Name | Relationship | Address | Phone | + + + + + | Elizabeth Welch | ECON | [address] | | | | | [place] | | | | | [address] | | + + + + + Care Team Providers + +------+ + | Care Invasive Cardiovascular Technologist Name | Role | Phone | + [...] | | (capsule) | Patient NO | Celestine Morales | | | | | sprain | REFERRING | [address], | | | | | Osteoarthros | PROVIDER PER | [place] | | | | | [place], | [place] | [address] | | | | | unspecified | | Phone: | | | | | whether | | [phone] | | | | | generalized | | Fax: | | | | | or | | [phone] | | | | | localized, | [...] | | | | | | | EXERCISE PHYSIOLOGY PROFESSOR | | | | | | | [place] SHLDR | | | | | | | ARTHROSCOP,P | | | | | | | ART | | | | | | | ACROMIOPLAS | | | | | | | W/CORACOACRO | | | | | | | M [place] SHLDR | | | | | | | ARTHROSCOP,S | | | | | | | URG,DIS | | | | | | | CLAVICULECTO | | | | | | | MY [place] | | | | | | | ARTHROSCOPY | | | | | | | BICEPS | | | +--------+--------+ + + + + Encounter Details +--------+---------+ + + + | Date | Type | Department | Care Team | Description | +--------+---------+ + + + | 10/15/ | Office | Orthopaedics at | Katty Chairez PA | Shoulder pain | | 2011 | Visit | [address] | [address] | (Primary Dx) | | | | Ave Mailcode: CH12A | [place], [place] | | | | | [facility] | [address] | | | | | and [facility] | [phone] | | | | | Floor [place], [place] | | | | | | [address] | | | | | | [phone] | | | +--------+---------+ + + + [...] + + + + | Weight | 73.9 kg (163 lb) | 10/16/2011 10:34 AM | | | | | PDT | | + + + + + | Height | 172.7 cm (5' 8") | 10/16/2011 10:34 AM | | | | | PDT | | + + + + + | Body Mass Index | 24.78 | 10/16/2011 10:34 AM | | | | | PDT | | + + + + + documented in this encounter Progress Notes Katty Chairez PA - 10/16/2011 9:04 PM VIKKIKevon Welch is a 71 y.o. male Patient of dr. garcia status post the following procedure on 07/22/11: 1. left arthroscopic subacromial decompression. 2. left arthroscopic distal clavicle resection. 3. left arthroscopic shoulder limited synovectomy and labral debridement Doing well, denies problems and feels he is doing well and progressing Currently has lower back issue that is causing problems for him Motion in forward flexion to 130, slightly less in abduction. Good strength against resista nce in abduction, slightly less in adduction Sensation intact Wounds healed at previous visit and without issues per patient Continue to advance activities as tolerated, follow up prn, call with questions issues or c oncerns in the future docu mented in this encounter Plan of Treatment Not on filedocumented as of this encounter Visit Diagnoses + + | Diagnosis | + + | Shoulder pain - Primary Pain in joint, shoulder region | + + documented in this encounter
--- OUTSIDE RECORDS SUMMARY | ~2018-07-13 | XMS | Encounter Summary ---
Demographics + + + | Address | [address] | | | [place] [address] | + + + | Home Phone [...] + + + | Author | [facility] | + + + | Organization | [facility] | + + + | Address | Unknown | + + + | Phone | Unavailable | + + + Support + + + + + | Name | Relationship | Address | Phone | + + + + + | Elizabeth Welch | ECON | [address] | | | | | [place] | | | | | [address] | | + + + + + Care Team Providers + +------+ + | Care Payment Processor Name | Role | Phone | + +------+ + | Doyle Johnson MD | PCP | Unavailable | + +------+ + Reason for Referral [...] | | | | | PHYSICAL | [facility] [place] | [facility] | | | | | THERAPY | [address] | for Health | | | | | REFERRAL | Phone: | and Healing, | | | | | | [phone] | 1st floor | | | | | | Fax: | [place], [place] | | | | | | [phone] | [address] | | | | | | | Phone: | | | | | | | [phone] | | | | | | | Fax: | | | | | | | [phone] | +--------+--------+ + + + + Encounter Details +--------+ + + + + | Date | Type | Department | Care Team | Description | +--------+ + + + + | 05/13/ | Wire Walker | Orthopaedics at | Katty Chairez PA | Shoulder pain | | 2011 | | [facility] [address] | [address] | (Primary Dx) | | | | Ave Mailcode: CH12A | [place], [place] | | | | | [place] for [facility] | [address] | | | | | and , | [phone] | | | | | Floor [place], [place] | | | | | | [address] | | | | | | [phone] | | | +--------+ + + + [...]
--- OUTSIDE RECORDS SUMMARY | ~2018-07-13 | XMS | Encounter Summary ---
Demographics + + + | Address | [address] | | | [place] [address] | + + + | Home Phone | | + + + | Preferred Language | Unknown | + + + | Marital Status | | + + + | Presybeterian Affiliation | NON | + + + | Race | White | + + + | Ethnic Group | Not or | + + + Author + + + | Author | [facility] | + + + | Organization | [facility] | + + + | Address | Unknown | + + + | Phone | Unavailable | + + + Support + + + + + | Name | Relationship | Address | Phone | + + + + + | Elizabeth Welch | ECON | [address] | | | | | [place] | | | | | [address] | | + + + + + Care Team Providers + +------+ + | Care Highway Research Engineer Name | Role | Phone | + [...] | | | | | PHYSICAL | [facility] [place] | [facility] | | | | | THERAPY | [address] | for Health | | | | | REFERRAL | Phone: | and Healing, | | | | | | [phone] | 1st floor | | | | | | Fax: | [place], [place] | | | | | | [phone] | [address] | | | | | | | Phone: | | | | | | | [phone] | | | | | | | Fax: | | | | | | | [phone] | +--------+--------+ + + + + Encounter Details +--------+---------+ + + + | Date | Type | Department | Care Team | Description | +--------+---------+ + + + | 08/31/ | Office | [facility] | Lena Rain, | Shoulder pain | | 2011 | Visit | Therapy Services at | PT [address] | (Primary Dx) | | | | [facility] | [address] | | | | | [address] | [place], [place] | | | | | Mailcode: CH3P | [address] | | | | | [facility] | | | | | | and Healing, 1st | | | | | | floor [facility] [place] | | | | | | [address] | | | | | | [phone] | | | +--------+---------+ + + + [...] might be different fr om the original. [id number] KEVON WELCH Date of : 1940 Start [...] request that all cancellations be made at [facility] t 24 hours in advance by calling [phone]. Our office is open 7am-6pm and there is a [employer] line 24 hours a day. Any appointment [...] change in their status. LENA RAIN PT [facility] RE[facility]IL[facility] AND HAND THERAPY [address] Mailcode: [address] And [facility], 1st [facility] [address] documented in this e [...] | + +--------+ + + + | [place] MANUAL THER | Routin | 09/01/2011 | Shoulder pain | | | TECH,1+GERHARD,EA 15 | e | 4:16 PM | | | | MIN | | PDT | | | + +--------+ + + + | [place] THERAPEUTIC | Routin | 09/01/2011 | Shoulder [...]
--- OUTSIDE RECORDS SUMMARY | ~2018-07-13 | XMS | Encounter Summary ---
Demographics + + + | Address | [address] | | | [place] [address] | + + + | Home Phone [...] | Author | [facility] | + + + | Organization | [facility] | + + + | Address | Unknown | + + + | Phone | Unavailable | + + + Support + + + + + | Name | Relationship | Address | Phone | + + + + + | Elizabeth Welch | ECON | [address] | | | | | [place] | | | | | [address] | | + + + + + Care Team Providers + +------+ + | Care Edge Banding Off Bearer Name | Role | Phone | + [...] + + | 07/21/ | Hospital | [facility] | Misael Myers MD | | | 2011 | Encounter | [facility] [address] | [address] | | | | | [facility] | [facility] | | | | | FOR HEALTH AND | [place], [place] | | | | | [facility], | [address] | | | | | [place] [address] | [phone] | | | | | [phone] | | | +--------+ + + + [...]
--- OUTSIDE RECORDS SUMMARY | ~2018-07-13 | XMS | Encounter Summary ---
Demographics + + + | Address | [address] | | | [place] [address] | + + + | Home Phone | | + + + | Preferred Language | Unknown | + + + | Marital Status | | + + + | Holiness Affiliation | NON | + + + [...] [place] | | | | | [address] | | + + + + + Care Team Providers + +------+ + | Care Career Services Director Name | Role | Phone | + +------+ + | Doyle Johnson MD | PCP | Unavailable | + +------+ + Encounter Details +--------+ + + + + | Date | Type | Department | Care Team | Description | +--------+ + + + + | 07/21/ | Telephone | Orthopaedics at | Misael Myers MD | | | 2011 | | [facility] [address] | [address] [facility] | | | | | [place] Mailcode: CH12A | [address] | | | | | [place] for [facility] | [place], [place] | | | | | and | [address] | | | | | Floor [place], [place] | [phone] | | | | | [address] | | | | | | [phone] | | | +--------+ + + + [...]
--- OUTSIDE RECORDS SUMMARY | ~2018-07-13 | XMS | Encounter Summary ---
Demographics + + + | Address | [address] | | | [place] [address] | + + + | Home Phone | | + + + | Preferred Language | Unknown | + + + | Marital Status | | + + + | Nondenominational Affiliation | NON | + + + [...] [place] | | | | | [address] | | + + + + + Care Team Providers + +------+ + | Care Compliance Intern Name | Role | Phone | + [...] Therapy Services at | PT [address] | | | | | [facility] | Celestine Morales | | | | | [address] | [place], [place] | | | | | Mailcode: CH3P | [address] | | | | | [facility] | | | | | | and Healing, 1st | | | | | | floor [place], [place] | | | | | | [address] | | | | | | [phone] | | | +--------+ + + + [...]
--- OUTSIDE RECORDS SUMMARY | ~2018-07-13 | XMS | Encounter Summary ---
Demographics + + + | Address | [address] | | | [place] [address] | + + + | Home Phone | | + + + | Preferred Language | Unknown | + + + | Marital Status | | + + + | Orthodoxy Affiliation | NON | + + + | Race | White | + + + | Ethnic Group | Not or | + + + Author + + + | Author | [facility] | + + + | Organization | [facility] | + + + | Address | Unknown | + + + | Phone | Unavailable | + + + Support + + + + + | Name | Relationship | Address | Phone | + + + + + | Elizabeth Welch | ECON | [address] | | | | | [place] | | | | | [address] | | + + + + + Care Team Providers + +------+ + | Care Insulation Blanket Maker Name | Role | Phone | + [...] | | | | | THERAPY | [facility] [place] | for Health | | | | | REFERRAL | [address] | and Healing, | | | | | | Phone: | 1st floor | | | | | | [phone] | [place], [place] | | | | | | Fax: | [address] | | | | | | [phone] | Phone: | | | | | | | [phone] | | | | | | | Fax: | | | | | | | [phone] | +--------+--------+ + + + + Encounter Details +--------+---------+ + + + | Date | Type | Department | Care Team | Description | +--------+---------+ + + + | 11/12/ | Office | [facility] | Lena Rain, | Shoulder pain | | 2011 | Visit | Therapy Services at | PT [address] | (Primary Dx) | | | | [facility] | [facility] [address] | | | | | [address] | [facility] [place] | | | | | Mailcode: CH3P | [address] | | | | | [facility] | | | | | | and Healing, 1st | | | | | | floor [place], [place] | | | | | | [address] | | | | | | [phone] | | | +--------+---------+ + + + [...] might be different fr om the original. [id number] KEVON WELCH Date of : 1940 Start of care: 07/24/11 Date of onset:07/22/11 Referring/Attending Practitioner: Misael Myers MD . Primary/Referral Diagnosis/ICD-9: Encounter Diagnoses Name Primary? Shoulder pain Yes Insurance: Payor: [employer] MEDICARE Plan: ODS MEDICARE Product Type: PPO Service period from: 08/24/11-11/22/11 Number visits used/authorized: 8 [facility] PHYSICAL THERAPY: Post-op SHOULDER PO week [...] given: Sidelying EXTERNAL ROTATION With no weight [id number] Standing B EXTERNAL ROTATION With yellow Tband 1x12 (increase up to 3 sets)-verbal TV watching stretch supine with towel rolls supporting weight of elbow x 5 min -reviewed t owel placement and performed for 5 min Standing Ext with yellow Tband [id number] INTERNAL ROTATION Behind the back stretch with [...] as 24 hours in advance by calling [phone]. Our office is open 7am-6pm and there is a [employer] ssage line 24 hours a day. Any [...] change in their status. LENA RAIN PT [facility] REHABILITATION SERVICES AND HAND THERAPY [address] Mailcode: [address] And [facility], [address] [place] [phone] documented in this e ncounter Plan of Treatment Not on filedocumented as of this encounter Procedures + +--------+ + + + | Procedure Name | Priori | Date/Time | Associated Diagnosis | Comments | | | ty | | | | + +--------+ + + + | [place] MANUAL THER | Routin | 11/13/2011 | Shoulder pain | | | TECH,1+REGIONS,EA 15 | e | 4:58 PM | | | | MIN | | PDT | | | + +--------+ + + + | [place] THERAPEUTIC | Routin | 11/13/2011 | Shoulder [...]
--- OUTSIDE RECORDS SUMMARY | ~2018-07-13 | XMS | Encounter Summary ---
Demographics + + + | Address | [address] | | | [place] [address] | + + + | Home Phone | | + + + | Preferred Language | Unknown | + + + | Marital Status | | + + + | Sabianist Affiliation | NON | + + + | Race | White | + + + | Ethnic Group | Not or | + + + Author + + + | Author | [facility] | + + + | Organization | [facility] | + + + | Address | Unknown | + + + | Phone | Unavailable | + + + Support + + + + + | Name | Relationship | Address | Phone | + + + + + | Elizabeth Welch | ECON | [address] | | | | | [place] | | | | | [address] | | + + + + + Care Team Providers + +------+ + | Care Play Reader Name | Role | Phone | + [...] | | | | | | | [address] | | | | | | | [address] | | | | | | | [place], | | | | | | | [place] | | | | | | | [address] | | | | | | | Phone: | | | | | | | [phone] | | | | | | | Fax: | | | | | | | [phone] | +--------+--------+ + + + + Encounter Details +--------+---------+ + + + | Date | Type | Department | Care Team | Description | +--------+---------+ + + + | 04/21/ | Office | Orthopaedics at | Misael Myers MD | Right shoulder pain, | | 2017 | Visit | [facility] [address] | [address] | unspecified | | | | Ave Mailcode: CH12A | [address] | chronicity (Primary | | | | Center for [facility] | [place], [place] | Dx) | | | | and Healing, | [address] | | | | | Floor [place], [place] | [phone] | | | | | [address] | | | | | | [phone] | | | +--------+---------+ + + + [...]
--- OUTSIDE RECORDS SUMMARY | ~2018-07-13 | XMS | Encounter Summary ---
Demographics + + + | Address | [address] | | | [place] [address] | + + + | Home Phone [...] + + + | Author | [facility] | + + + | Organization | [facility] | + + + | Address | Unknown | + + + | Phone | Unavailable | + + + Support + + + + + | Name | Relationship | Address | Phone | + + + + + | Elizabeth Welch | ECON | [address] | | | | | [place] | | | | | [address] | | + + + + + Care Team Providers + +------+ + | Care Electric Installer Name | Role | Phone | + +------+ + | Doyle Johnson MD | PCP | Unavailable | + +------+ + Reason for Visit +--------+ + | Reason | Comments | +--------+ + | Other | home pump follow up | +--------+ + Encounter Details +--------+ + + + + | Date | Type | Department | Care Team | Description | +--------+ + + + + | 07/22/ | Telephone | [facility] | Fili Rivera, | Other (home pump | | 2011 | | Pain Center at | MD | follow up) | | | | [facility] | | | | | | [address] | | | | | | Mail Code: CH15P | | | | | | [facility] | | | | | | and Healing, | | | | | | Floor [place], [place] | | | | | | [address] | | | | | | [phone] | | | +--------+ + + + [...]
--- OUTSIDE RECORDS SUMMARY | ~2018-07-13 | XMS | Encounter Summary ---
Demographics + + + | Address | [address] | | | [place] [address] | + + + | Home Phone | | + + + | Preferred Language | Unknown | + + + | Marital Status | | + + + | Shinto Affiliation | NON | + + + | Race | White | + + + | Ethnic Group | Not or | + + + Author + + + | Author | [facility] | + + + | Organization | [facility] | + + [...] [place] | | | | | [address] | | + + + + + Care Team Providers + +------+ + | Care Business Investor Name | Role | Phone | + [...] | | | | | PHYSICAL | [facility] [place] | [facility] | | | | | THERAPY | [address] | for Health | | | | | REFERRAL | Phone: | and Healing, | | | | | | [phone] | 1st floor | | | | | | Fax: | [place], [place] | | | | | | [phone] | [address] | | | | | | | Phone: | | | | | | | [phone] | | | | | | | Fax: | | | | | | | [phone] | +--------+--------+ + + + + Encounter Details +--------+---------+ + + + | Date | Type | Department | Care Team | Description | +--------+---------+ + + + | 08/19/ | Office | [facility] | Lena Rain, | Shoulder pain | | 2011 | Visit | Therapy Services at | PT [address] | (Primary Dx) | | | | [facility] | [address] | | | | | [address] | [place], [place] | | | | | Mailcode: CH3P | [address] | | | | | [facility] | | | | | | and Healing, 1st | | | | | | floor [facility] [place] | | | | | | [address] | | | | | | [phone] | | | +--------+---------+ + + + [...] encounter Progress Notes Lena Rain, PT - 08/20/2011 12:58 PM PDTFormatting of this note might be different fr om the original. [id number] KEVON WELCH Date of : 1940 Start of care: 07/24/11 Date of onset:07/22/11 Referring/Attending Practitioner: Misael Myers MD . Primary/Referral Diagnosis/ICD-9: Encounter Diagnoses Name Primary? Shoulder pain Yes Insurance: Payor: ODS MEDICARE Plan: ODS MEDICARE Product Type: PPO Service period from: 07/24/11-08/23/11 Number visits used/authorized: 4 [place] PHYSICAL THERAPY: Post-op SHOULDER PO week 4 S/P Arthroscopic SAD, DCE, labral debridement Subjective: Pt reports that his shoulder pain is better Pain 0/10 at rest; tylenol seemed to help with ROM tolerance Using sling more History of Presenting Problem: Kevon Welch is [...] sling correctly Posture/alignment: Rounded shoulders, forward head Palpation: mild TTP at incisions, bicep -firm mm knot in at insertion of deltoid and biceps -improved PROM: post RX in sidelying FLEX 115 degrees ER: 30* in SL IR to belly = MANUAL THERAPY x30 PROM for SCAPTION, ER, ABD for LLPS 5 min each direction Soft tissue mobilization periscapula, posterior shoulder Grade 1-2 joint mobilization for GH joint for pain relief -discontinued due to pain Scapular distraction, subscapularis release Soft tissue mobilization biceps and deltoid to reduce mm spasm and guarding THERAPEUTIC EXERCISE x15 Treatment consisted of reviewing [...] 3 x daily Change to sidelying or sitting Passive supine shoulder scaption w with partner [...] flexion Sitting ER with stick for PROM ASSESSMENT: Pt tolerated RX well with decreased guarding and complaints of pain today, tolerates RX in sidelying and sitting better Pt demonstrates moderate stiffness and guarding due to pain with activity; pain well contro lled at rest GOALS, Discussed with patient, due in 12-16 weeks: 1. Increase strength of ROTATOR CUFF/ER to 4/5; periscapular mm to 4+/5 2. Demonstrate understanding and independence HOME EXERCISE PROGRAM 3. Increase shoulder AROM to full and painfree 4. Normalize scapulo-humeral kinematics PLAN: F/U next week as able to address limitation in ROM and pain Assess response to pain meds in increasing ROM Progress to AROM as tolerated Therapeutic exercise, Manual Therapy, Therapeutic Activity, Manual Therapy, Neuromuscular R e-Education, Gait Training, Modalities as needed, Pt. Education, HOME EXERCISE PROGRAM Per protocol. Reinforce precautions. Frequency/Duration: 1x every 2 weeks for 12-16 weeks Treatment began: 824 Treatment ended: 914 Reviewed cancel/no show policy with patient. Pt voiced understanding. "At times we understand you must cancel. We request that all cancellations be made at [facility] 24 hours in advance by calling [phone]. Our office is open 7am-6pm and there is a me ssage line 24 hours a day. Any [...] change in their status. LENA RAIN PT [facility] REHABIL[facility]ATION [facility] AND HAND THERAPY [address] Mailcode: [address], [address] [facility] [address] documented in this e ncounter Plan of Treatment Not on filedocumented as of this encounter Procedures + +--------+ + + + | Procedure Name | Priori | Date/Time | Associated Diagnosis | Comments | | | ty | | | | + +--------+ + + + | NC MANUAL THER | Routin | 08/20/2011 | Shoulder pain | | | TECH,1+REGIONS,EA 15 | e | 1:04 PM | | | | MIN | | PDT | | | + +--------+ + + + | NC THERAPEUTIC | Routin | 08/20/2011 | Shoulder pain | | | EXERCISES | e | 1:04 PM | | | | | | PDT | | | + +--------+ + + + documented in this encounter Visit Diagnoses + + | Diagnosis | + + | Shoulder pain - Primary Pain in joint, shoulder region | + + documented in this encounter
--- OUTSIDE RECORDS SUMMARY | ~2018-07-13 | XMS | Encounter Summary ---
Demographics + + + | Address | [address] | | | [place] [address] | + + + | Home Phone | | + + + | Preferred Language | Unknown | + + + | Marital Status | | + + + | Mormonism Affiliation | NON | + + + [...] [place] | | | | | [address] | | + + + + + Care Team Providers + +------+ + | Care Quill Collector Name | Role | Phone | + [...] | | | | | Procedures | [facility] | Mailcode: | | | | | PHYSICAL | Rd | [facility] | | | | | THERAPY | [place], [place] | for Health | | | | | REFERRAL | [address] | and Healing, | | | | | | | 1st floor | | | | | | | [place], [place] | | | | | | | [address] | | | | | | | Phone: | | | | | | | [phone] | | | | | | | Fax: | | | | | | | [phone] | +--------+--------+ + + + + Encounter Details +--------+---------+ + + + | Date | Type | Department | Care Team | Description | +--------+---------+ + + + | 07/20/ | Office | [place] Physical | Rupesh, | Shoulder pain | | 2013 | Visit | Therapy Services at | Alise, PT [address] | (Primary Dx) | | | | [facility] | [address] | | | | | [address] | [place], [place] | | | | | Mailcode: CH3P | [address] | | | | | [facility] | | | | | | and Ned, 1st | | | | | | floor [place], [place] | | | | | | [address] | | | | | | [phone] | | | +--------+---------+ + + + [...] [place], PT - 07/20/2013 2:33 PM PDT [id number] KEVON WELCH Date of : 1940 Start of care: 05/19/2013 Date of onset: 03/21/2013 Referring/Attending Practitioner: Misael Myers Primary/Referral Diagnosis/ICD-9: Shoulder pain (primary encounter diagnosis) Insurance: Payor: [employer] ODS MEDICARE Plan: Smava MEDICARE Product Type: P PO Service period from: 05/19/2013 to - Number visits used/authorized: 3- [facility] PHYSICAL THERAPY TREATMENT - ORTHO SUBJECTIVE: Current: Right shoulder is so-so. Has been traveling in [place], [place], and [place]. Di fficulty lifting suitcase to overhead bin and pulling through city. Stopped taking ibuprofe n and had spontaneous bruising - will call PCP once home in [facility]. Noticed minimal silva ge in shoulder motion [...] Right Left Right 07/20/2013 Flexion 141 155 [id number]* [id number] Abduction 146 150 [id number]* [id number] ER at 90 deg abd 90 (60 [...] home exercise program as pt lives in [place] for posterior do minant shoulder strength Frequency/Duration: Follow up prn due to pt living in [place] and traveling to [facility] for 4 weeks Treatment began: 0230 pm Treatment ended: 0315 pm This note is to serve as the discharge summary if Kevon fails to attend further Physical Th erapy appointments or contact the therapist regarding any change in their status. Alise [place], PT [facility] HAND THERAPY [address] Mailcode: [place] [address] documented in this encounter Plan of Treatment Not on filedocumented as of this encounter Procedures + +--------+ + + + | Procedure Name | Priori | Date/Time | Associated Diagnosis | Comments | | | ty | | | | + +--------+ + + + | AK MANUAL THER | Routin | 07/20/2013 | [...]
--- OUTSIDE RECORDS SUMMARY | ~2018-07-13 | XMS | Encounter Summary ---
Demographics + + + | Address | [address] | | | [place] [address] | + + + | Home Phone [...] [place] | | | | | [address] | | + + + + + Care Team Providers + +------+ + | Care General Manager Food Name | Role | Phone | + [...] | | shoulder | Provider Per | [address] | | | | | pain | Patient NO | [address] [place] | | | | | | REFERRING | Dejan Onofre | | | | | | PROVIDER PER | [place] | | | | | | [place] | [address] | | | | | | | Phone: | | | | | | | [phone] | | | | | | | Fax: | | | | | | | [phone] | +--------+--------+ + + + + Encounter Details +--------+---------+ + + + | Date | Type | Department | Care Team | Description | +--------+---------+ + + + | 02/13/ | Office | Orthopaedics at | Misael Myers MD | Shoulder pain; | | 2011 | Visit | [facility] [address] | [address] [facility] | Rotator cuff | | | | [place] Mailcode: CH12A | [address] | tendinitis; | | | | Center for Health | [facility] [place] | Disorders of bursae | | | | and Healing, | [address] | and tendons in | | | | Floor [facility] [place] | [phone] | shoulder region, | | | | [address] | | unspecified | | | | [phone] | | | +--------+---------+ + + + [...] Speed's biceps test was ne gative. and Aledo's test was positive. The patient had normal [...]
--- OUTSIDE RECORDS SUMMARY | ~2018-07-13 | XMS | Encounter Summary ---
Demographics + + + | Address | [address] | | | [place] [address] | + + + | Home Phone | | + + + | Preferred Language | Unknown | + + + | Marital Status | | + + + | Zoroastrian Affiliation | NON | + + + [...] [place] | | | | | [address] | | + + + + + Care Team Providers + +------+ + | Care Law Office Receptionist Name | Role | Phone | + +------+ + | Zeyad May MD | PCP | | + +------+ + Encounter Details +--------+ + + + + | Date | Type | Department | Care Team | Description | +--------+ + + + + | 04/21/ | Hospital | Radiology/Imaging | Misael Myers MD | | | 2017 | Encounter | Lab at [facility] [address] | [address] | | | | | [address] Mailcode: | [address] | | | | | [facility] for | [place], [place] | | | | | Health and [facility], | [address] | | | | | 3rd Floor [place], | [phone] | | | | | [place] [address] | | | | | | [phone] | | | +--------+ + + + [...] | X-RAY SHOULDER 3+ | Routin | 04/21/2016 | Right shoulder | Results for this | | VIEWS RIGHT | e | 10:28 AM | pain, unspecified | procedure are in the | | | | PDT | chronicity | results section. | + +--------+ + [...] + | Right shoulder pain, unspecified chronicity | + + documented in this encounter"
--- OUTSIDE RECORDS SUMMARY | ~2018-07-13 | XMS | Encounter Summary ---
Demographics + + + | Address | [address] | | | [place] [address] | + + + | Home Phone [...] + + + | Author | [facility] | + + + | Organization | [facility] | + + + | Address | Unknown | + + + | Phone | Unavailable | + + + Support + + + + + | Name | Relationship | Address | Phone | + + + + + | Elizabeth Welch | ECON | [address] | | | | | [place] | | | | | [address] | | + + + + + Care Team Providers + +------+ + | Care Shower Enclosure Installer Name | Role | Phone | [...] | 2017 | Encounter | Lab at [facility] [address] | [address] | | | | | [address] Mailcode: | [address] | | | | | [facility] | [place], [place] | | | | | Health and [facility], | [address] | | | | | 3rd Floor [place], | [phone] | | | | | [place] [address] | | | | | | [phone] | | | +--------+ + + + [...]
--- OUTSIDE RECORDS SUMMARY | ~2018-07-13 | XMS | Encounter Summary ---
Demographics + + + | Address | [address] | | | [place] [address] | + + + | Home Phone [...] + + + | Author | [facility] | + + + | Organization | [facility] | + + + | Address | Unknown | + + + | Phone | Unavailable | + + + Support + + + + + | Name | Relationship | Address | Phone | + + + + + | Elizabeth Welch | ECON | [address] | | | | | [place] | | | | | [address] | | + + + + + Care Team Providers + +------+ + | Care Lathmaker Name | Role | Phone | + +------+ + | Doyle Johnson MD | PCP | Unavailable | + +------+ + Encounter Details +--------+ + + + + | Date | Type | Department | Care Team | Description | +--------+ + + + + | 06/29/ | Anesthesia | Preoperative | Lida Houser, | | | 2011 | Event | [facility] at | ANP [address] | | | | | [facility] 4th Floor [address] | [address] | | | | | [address] Mail | [place], [place] | | | | | Code: [address] | [address] | | | | | for Health and | [phone] | | | | | Healing,4th Floor | | | | | | [place], [place] | | | | | | [address] | | | | | | [phone] | | | +--------+ + + + [...]
--- OUTSIDE RECORDS SUMMARY | ~2018-07-13 | XMS | Encounter Summary ---
Demographics + + + | Address | [address] | | | [place] [address] | + + + | Home Phone [...] [place] | | | | | [address] | | + + + + + Care Team Providers + +------+ + | Care Demand Planning Analyst Name | Role | Phone | [...] | follow up) | | | | [facility] | | | | | | [address] | | | | | | Mail Code: CH15P | | | | | | [facility] | | | | | | and Healing, | | | | | | Floor [place], [place] | | | | | | [address] | | | | | | [phone] | | | +--------+ + + + [...]
--- OUTSIDE RECORDS SUMMARY | ~2018-07-13 | XMS | Clinical Summary ---
Demographics + + + | Address | [address] | | | [place] [address] | + + + | Home Phone [...] [place] | | | | | [address] | | + + + + + Care Team Providers + +------+ + | Care Silverer Name | Role | Phone | + +------+ + | Zeyad May MD | PP | | + +------+ + Source Comments YOVANNY is fully live on both EpicCare Ambulatory and EpicCare InPatient.Formerly [facility], [facility] & [facility] Allergies + + + + + [...]
--- OUTSIDE RECORDS SUMMARY | ~2018-07-13 | XMS | Encounter Summary ---
Demographics + + + | Address | [address] | | | [place] [address] | + + + | Home Phone | | + + + | Preferred Language | Unknown | + + + | Marital Status | | + + + | Amish Affiliation | NON | + + + [...] [place] | | | | | [address] | | + + + + + Care Team Providers + +------+ + | Care Gas Regulator Repairer Name | Role | Phone | [...] | [address] | [place], [place] | | | | | Mailcode: CH3P | [address] | | | | | [facility] | | | | | | and Healing, 1st | | | | | | floor [facility] [place] | | | | | | [address] | | | | | | [phone] | | | +--------+---------+ + + + [...] Acosta, PT - 02/13/2011 6:28 PM PST [id number] KEVON WELCH Date of : 1940 Start of care: 02/13/2011 Date of onset: 12/24/2010 Referring/Attending Practitioner: Misael Myers MD . Primary/Referral Diagnosis/ICD-9: Encounter Diagnoses Name Primary? 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 [...] cont with PT closer to home in [facility] Treatment began: 1005 Treatment ended: 1030 This note is to serve as the discharge summary if pt fails to attend further Physical Thera py appointments or contact the therapist regarding any change in their status. ALISE ACOSTA PT [facility] REHABILITATION SERVICES AND HAND THERAPY [address] Mailcode: [address] [address] documented in this encounter Plan [...]
--- OUTSIDE RECORDS SUMMARY | ~2018-07-13 | XMS | Encounter Summary ---
Demographics + + + | Address | [address] | | | [place] [address] | + + + | Home Phone | | + + + | Preferred Language | Unknown | + + + | Marital Status | | + + + | Sabianism Affiliation | NON | + + + [...] [place] | | | | | [address] | | + + + + + Care Team Providers + +------+ + | Care Pilates Coordinator Name | Role | Phone | [...] | | | | | THERAPY | [facility] [place] | for Health | | | | | REFERRAL | [address] | and Healing, | | | | | | Phone: | 1st floor | | | | | | [phone] | [facility] [place] | | | | | | Fax: | [address] | | | | | | [phone] | Phone: | | | | | | | [phone] | | | | | | | Fax: | | | | | | | [phone] | +--------+--------+ + + + + Encounter Details +--------+---------+ + + + | Date | Type | Department | Care Team | Description | +--------+---------+ + + + | 10/29/ | Office | [facility] Physical | Lena Rain, | Herniated lumbar | | 2011 | Visit | Therapy Services at | PT [address] | intervertebral disc; | | | | [facility] | [address] | Degeneration of | | | | [address] | [place], [place] | lumbar | | | | Mailcode: CH3P | [address] | intervertebral disc; | | | | [facility] | | Low back pain; | | | | and Healing, 1st | | Lumbar radiculopathy | | | | floor [place], [place] | | | | | | [address] | | | | | | [phone] | | | +--------+---------+ + + + [...] encounter Progress Notes Lena Rain, PT - 10/30/2011 3:03 PM PDTFormatting of this note might be different fr om the original. [id number] KEVON WELCH Date of : 1940 Start of care: 10/09/2011 Date of onset: 09/10/11 Referring/Attending Practitioner: Alcira Bocanegra PA . Primary/Referral Diagnosis/ICD-9: 722.10H Herniated lumbar intervertebral disc Insurance: Payor: ODS MEDICARE Plan: ODS MEDICARE Product Type: PPO Service period from: 10/09/2011 to: 11/08/11 Number visits used/authorized: 6/ Neurologist: [facility]. [facility] [address] [place] [address] (Office) [facility] PHYSICAL THERAPY SUBJECTIVE Age: 71 y.o. Sex: male Chief complaint: Today's report: Saw neurosurgeon; will go ahead with surgery; not sure date, needs to be approved 0/10 pain today; slight pain in the am; 0.5/10, better with getting up and moving around Less concentration needed for walking Still able to do 20 sidelying hip abduction ex, easier on R LE Toes still not lifting any higher with standing DF (up to about 1 inch with shoes on) Able to achieve increased seated knee extension angle Foot no longer slapping when I walk Driving more History of Presenting Problems: Kevon Welch is a 71 y.o. male with c/o LBP that began about a month ago. 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 and felt [...] Social History: lives with Recreational Activities/Hobbies: plays [employer]; reading; does a lot of computer/keyboarding Functional limitations:Walking more than 2 blocks he starts to feel fatigue in anterior tib ialis Patients goals: resume prior level of function, decrease pain OBJECTIVE: Seated knee extension: -20 B with AKET, though both feel more tight Lower Quarter Neuro Screen Updated 10/30/11 Segmental Strength Test Right Left Impact Test L1-3 hip flexion na na L3 knee Extension 5 5 L4-5 hip abduction 4 5 L4 Ankle DF 4- 5 S1 Calf Raises 5 5 S1 Hamstrings 5 5 Toe extension 4+ 10/30/11 THERAPEUTIC EXERCISE x15 min Reviewed exercises, including balance ex Cues to place weight on heels to avoid compensatory gastroc/soleus firing Home exercise program: Intervention Date* Comments Compliance [...] for details of compliance, modification s, deletions THERAPEUTIC ACTIVITY x20 min Reviewed post op precautions, proper transfers, no bending lifting, twisting; pt will need to refer to MD's specific protocol post surgery to better determine what his restrictions wi ll be. Briefly recheck shoulder ROM: EXTERNAL ROTATION At side: approx 50 degrees; FLEX: approx 130 AROM with moderate hiking ASSESSMENT: Pt tolerated RX well today Symptoms slowly resolving, continues to improve with pain report Symptoms with sciatic nerve stretch are less irritable able to tolerate further knee extens ion in sitting DF strength and balance limited, though balance is improved since initial elda Lund's Goals: decrease pain in R LE and [...] minutes without exacerbating pain 12 weeks PLAN: Plan to see pt for L shoulder at next visit Await further news on surgery approval and date Continue with sciatic nerve desensitization as well [...] lton Duration in months: 1-2months Treatment began: 1444 Treatment ended: 1519 This note is to serve as the discharge summary if Kevon fails to attend further Physical Th erapy appointments or contact the therapist regarding any change in their status. LENA RAIN PT [facility]IL[facility] AND HAND THERAPY [address] Mailcode: [address], [address] [place] [address] documented in this e ncounter Plan of Treatment Not on filedocumented as of this encounter Procedures + +--------+ + + + | Procedure Name | Priori | Date/Time | Associated Diagnosis | Comments | | | ty | | | | + +--------+ + + + | NC THERAPEUTIC | Routin | 10/30/2011 | Herniated lumbar | | | ACTIVITIES | e | 4:41 PM | intervertebral disc | | | | | PDT | Degeneration of | | | | | | lumbar | | | | | | intervertebral disc | | | | | | Low back pain | | | | | | Lumbar radiculopathy | | + +--------+ + + + | NC THERAPEUTIC | Routin | 10/30/2011 | Herniated lumbar | | | EXERCISES | e | 4:41 PM | intervertebral disc | | | [...]
--- OUTSIDE RECORDS SUMMARY | ~2018-07-13 | XMS | Encounter Summary ---
Demographics + + + | Address | [address] | | | [place] [address] | + + + | Home Phone [...] [place] | | | | | [address] | | + + + + + Care Team Providers + +------+ + | Care Weave Defect Charting Clerk Name | Role | Phone | [...] | | | | | THERAPY | [facility] [place] | for Health | | | | | REFERRAL | [address] | and Healing, | | | | | | Phone: | 1st floor | | | | | | [phone] | [place], [place] | | | | | | Fax: | [address] | | | | | | [phone] | Phone: | | | | | | | [phone] | | | | | | | Fax: | | | | | | | [phone] | +--------+--------+ + + + + Encounter Details +--------+---------+ + + + | Date | Type | Department | Care Team | Description | +--------+---------+ + + + | 11/02/ | Office | [facility] Physical | Lena Rain, | Shoulder pain | | 2011 | Visit | Therapy Services at | PT [address] | (Primary Dx) | | | | [facility] | [address] | | | | | [address] | [facility] [place] | | | | | Mailcode: CH3P | [phone] | | | | | [facility] | | | | | | and Healing, 1st | | | | | | floor [place], [place] | | | | | | [address] | | | | | | [phone] | | | +--------+---------+ + + + [...] might be different fr om the original. [id number] KEVON WELCH Date of : 1940 Start of care: 07/24/11 Date of onset:07/22/11 Referring/Attending Practitioner: Misael Myers MD . Primary/Referral Diagnosis/ICD-9: Encounter Diagnoses Name Primary? Shoulder pain Yes Insurance: Payor: [employer] MEDICARE Plan: ODS MEDICARE Product Type: PPO Service period from: 08/24/11-11/22/11 Number visits used/authorized: 7 [facility] PHYSICAL THERAPY: Post-op SHOULDER PO week S/P Arthroscopic SAD, DCE, labral debridement Subjective: Pt reports that his shoulder pain is mostly resolved Has some residual biceps pain in the anterior shoulder, as well as pain at end range DIVISION OPERATIONS SPECIALIST AL ROTATION States he has been doing [...] UE improved [facility] Pt still working on mid [...] as 24 hours in advance by calling [phone]. Our office is open 7am-6pm and there is a Goozzy ssage line 24 hours a day. Any [...] in their status. LENA RAIN PT OCS [facility] REHABIL[facility]ATION SERVICES AND HAND THERAPY [address] Mailcode: [address] And [facility], [address] [place] [phone] documented in this e ncounter Plan of Treatment Not on filedocumented as of this encounter Procedures + +--------+ + + + | Procedure Name | Priori | Date/Time | Associated Diagnosis | Comments | | | ty | | | | + +--------+ + + + | ID MANUAL THER | Routin | 11/03/2011 | Shoulder pain | | | TECH,1+REGIONS,EA 15 | e | 12:22 PM | | | | MIN | | PDT | | | + +--------+ + + + | ID THERAPEUTIC | Routin | 11/03/2011 | Shoulder [...]
--- OUTSIDE RECORDS SUMMARY | ~2018-07-13 | XMS | Encounter Summary ---
Demographics + + + | Address | [address] | | | [place] [address] | + + + | Home Phone [...] Author | [facility] | + + + | Organization | [facility] | + + + | Address | Unknown | + + + | Phone | Unavailable | + + + Support + + + + + | Name | Relationship | Address | Phone | + + + + + | Elizabeth Welch | ECON | [address] | | | | | [place] | | | | | [address] | | + + + + + Care Team Providers + +------+ + | Care Seismograph Observer Name | Role | Phone | + [...] Therapy Services at | PT [address] | | | | | [facility] | [address] | | | | | [address] | [place], [place] | | | | | Mailcode: CH3P | [address] | | | | | [facility] | | | | | | and Healing, 1st | | | | | | floor [place], [place] | | | | | | [address] | | | | | | [phone] | | | +--------+ + + + [...]
--- OUTSIDE RECORDS SUMMARY | ~2018-07-13 | XMS | Encounter Summary ---
Demographics + + + | Address | [address] | | | [place] [address] | + + + | Home Phone [...] [place] | | | | | [address] | | + + + + + Care Team Providers + +------+ + | Care Nuclear Equipment Design Engineer Name | Role | Phone | [...] | | | | | Procedures | [facility] | Mailcode: | | | | | PHYSICAL | Rd | [facility] Center | | | | | THERAPY | [place], [place] | for Health | | | | | REFERRAL | [address] | and Healing, | | | | | | Phone: | 1st floor | | | | | | [phone] | [place], [place] | | | | | | Fax: | [address] | | | | | | [phone] | Phone: | | | | | | | [phone] | | | | | | | Fax: | | | | | | | [phone] | +--------+--------+ + + + + Encounter [...] back pain; Lumbar | | | | [facility] | [facility] [address] | radiculopathy; | | | | [address] | [place], [place] | Herniated lumbar | | | | Mailcode: CH3P | [address] | intervertebral disc; | | | | [facility] | | Degeneration of | | | | and Healing, 1st | | lumbar | | | | floor [place], [place] | | intervertebral disc | | | | [address] | | | | | | [phone] | | | +--------+---------+ + + + [...] might be different fr om the original. [id number] KEVON WELCH Date of : 1940 Start of care: 10/09/2011 Date of onset: 09/10/11 Referring/Attending Practitioner: Alcira Bocanegra PA . Primary/Referral Diagnosis/ICD-9: 722.10H Herniated lumbar intervertebral disc Insurance: Payor: ODS MEDICARE Plan: ODS MEDICARE Product Type: PPO Service period from: 10/09/2011 to: 11/08/11 Number visits used/authorized: 4/ Neurologist: Dr. Rafal Benites [facility] [address] [place] [address] (Office) [facility] PHYSICAL THERAPY SUBJECTIVE Age: 71 y.o. [...] month ago. 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 He also has no past medic al history of Difficult intubation; MALIGNANT HYPERTHERMIA; PONV (postoperative nausea and v omiting); or Spinal headache. Past Surgical History: has past surgical history that includes lipoma exicison 2002; UPPP 2005; knee procedure 1958; and colonoscopy-last 2009. Social History: lives with Recreational Activities/Hobbies: plays [employer]; reading; does a lot of computer/keyboarding Functional [...] change in their status. LENA RAIN PT [facility] REHABIL[facility]ATION SERVICES AND HAND THERAPY [address] Mailcode: Ch3p [facility], 1st [facility] [address] documented in this e ncounter Plan of Treatment Not on filedocumented as of this encounter Procedures + +--------+ + + + | Procedure Name | Priori | Date/Time | Associated Diagnosis | Comments | | | ty | | | | + +--------+ + + + | LA THERAPEUTIC | Routin | 10/24/2011 | Shoulder [...]
--- OUTSIDE RECORDS SUMMARY | ~2018-07-13 | XMS | Encounter Summary ---
Demographics + + + | Address | [address] | | | [place] [address] | + + + | Home Phone | | + + + | Preferred Language | Unknown | + + + | Marital Status | | + + + | Mosque Affiliation | NON | + + + [...] + + + + + | [facility] | ECON | [address] | | | | | [place] | | | | | [address] | | + + + + + Care Team Providers + +------+ + | Care Wharf Hand Name | Role | Phone | + [...] | | | | | THERAPY | [address] | for Health | | | | | REFERRAL | Phone: | and Healing, | | | | | | [phone] | 1st floor | | | | | | Fax: | [place], [place] | | | | | | [phone] | [address] | | | | | | | Phone: | | | | | | | [phone] | | | | | | | Fax: | | | | | | | [phone] | +--------+--------+ + + + + Encounter Details +--------+---------+ + + + | Date | Type | Department | Care Team | Description | +--------+---------+ + + + | 05/11/ | Office | [facility] | Philly Rain, | Shoulder pain | | 2011 | Visit | Therapy Services at | PT [address] | (Primary Dx) | | | | [facility] | [address] | | | | | [address] | [place], [place] | | | | | Mailcode: CH3P | [address] | | | | | [facility] | | | | | | and Healing, 1st | | | | | | floor [facility] [place] | | | | | | [address] | | | | | | [phone] | | | +--------+---------+ + + + [...] as of this encounter Progress Notes Koffi Philly, PT - 05/12/2011 9:14 AM PDTFormatting of this note might be different [facility] the original. [id number] KEVON WELCH Date of : 1940 Start of care: 02/13/2011 Date of onset: 12/24/2010 Referring/Attending Practitioner: Misael Myers MD . Primary/Referral Diagnosis/ICD-9: Encounter Diagnoses Name Primary? Shoulder pain Yes Insurance: Payor: [employer] MEDICARE Plan: ODS MEDICARE Product Type: PPO Service period from: 03/13/11-06/11/11 Number visits used/authorized: 02/09 [facility] PHYSICAL THERAPY: SHOULDER SUBJECTIVE: Pt reports his pain is still present in shoulder, but is doing better with his exercises in terms of knowing how hard to push the ex Pt states he is doing pulleys, for flexion and abduction facing away from sofiya; Tband for adduction,abduction, IR, ER; and behind the back IR stretching Prior/concurrent treatment: Pt no longer undergoing PT at clinic in [place] [address] [facility] here; has been seen 9 visits; states he was not happy with care there States he is interested in having surgery but not until he is finished traveling (early Jul) History of Presenting Problem: Kevon Weclh is a 70 y.o. male who presents [...] no past surgical history on file. MEDICATIONS: ibuprofen 200 mg Oral Tablet, Take 200 mg by mouth every six hours as needed. Previous treatment: none. 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 + Telles, + Hornblowers FLEX: 150 135 ABD: 160 110 ER @ side: 40 ER at 90: 60* IR: Behind Back: painful, not tested MANUAL THERAPY x25 min Gr 1-2 INF and A/P GH glides Gentle PROM in scaption supine for ER, scaption, and ABD STM periscapula Scapular diagonals PROM THERAPEUTIC EXERCISE x20 Reviewed HOME EXERCISE PROGRAM: Pulleys -flexion, bent elbow Table flexion ER with yellow Tband at diagonal Punches at waist level with yellow Tband Supine Flex pointers with assist from opp hand until painfree Rows with yellow Tband Pt ed on cold pack as necc for pain after ex for 15 min; pt declines for today Discharge: Tband for adduction,abduction ASSESSMENT: Pt demonstrates increased awareness of proper HOME EXERCISE PROGRAM technique; should avoid ABD and ADD with tband as these inc pain in shoulder Lacking and ER>IR ROM Problem List: 1. Decreased range of motion with pain at end range and with overpressure 2. Decreased strength limited by pain 3. Positive shoulder impingement signs 4. Inability to complete daily activities without pain Rehab Potential: Excellent GOALS, Discussed with patient, due in 6 weeks: 1. Increase strength of shoulder ER to 4+/5 without pain as able (may be guarded due to RC tear) 2. Demonstrate understanding and independence HOME EXERCISE PROGRAM 3. Increase shoulder AROM to full and painfree 4. Normalize scapulo-humeral kinematics 5. Pre-op training PLAN: Recheck HOME EXERCISE PROGRAM Progress as able Increase ROM Pre-op training closer to DOS There-ex, ther-act, manual therapy, modalities as indicated, neuromuscular re-ed, patient e d Frequency/Duration: HOME EXERCISE PROGRAM for 2 weeks, then recheck 1x every 1-2 weeks as needed until SX in 07/21 Treatment began: 904 Treatment ended: 949 This note is to serve as the discharge summary if Kevon fails to attend further Physical Th erapy appointments or contact the therapist regarding any change in their status. PHILLY RAIN, PT [facility] REHABILITATION SERVICES AND HAND THERAPY [address] Mailcode: [facility], [address]st [facility] [address] Philly Killian PT - 05/12/2011 9:14 AM PDT 04/28/11 PT Encounter Note: Kevon Welch 70 yrs, Male, 1940 PCP: DOYLE JOHNSON Ref: NO REFERRING PROVIDER PER PATIENT, Primary Ins.: ODS MEDI Pt seen briefly [facility] by PT per Dr. Acevedo request: Not charged S: Pt undergoing PT at clinic in [place] 200 [place] from here; has been seen 9 visits; sta maury he is not happy with care there Pain is still present in shoulder, and is not sure how much he should push through it. Pt states he is doing pulleys, for flexion and abduction facing away from sofiya; Tband for adduction,abduction, IR, ER; and behind the back IR stretching States he is interested in having surgery but not until he is finished traveling (early Jul) O: per MD: + partial thickness RC tear, no retraction, AC joint arthritis, no obvious bicep s pathology Briefly reviewed ex with pt Advised not to push through pain Modify pulleys to facing sofiya, bent elbow, no pain A: Pt is preop for RC repair and DCE which is 2 months away; has questions about rehab prog agapito to improved ROM and decrease pain until then and would like to establish care here to co incide with next visit into town. Limited time today for full treatment. P: Full assessment at next PT appt scheduled 05/12/11 to discuss pt's concerns and modify RX as appropriate PHILLY RAIN PT [facility] [address] Mailcode: Ch12a [facility], [address] [facility] [address] + NEERS. + Telles, + Hornblowers FLEX: 150 135 ABD: 160 110 ER @ side: ER at 90: 60* IR: documented in th is encounter Plan of Treatment + + +--------+ + + | Name | Type | Priori | Associated Diagnoses | Order Schedule | | | | ty | | | + + +--------+ + + | REHABILITATION | Procedures | Routin | Shoulder pain | Ordered: 05/15/2011 | | MEDICARE | | e | | | | CERTIFICATION | | | | | + + +--------+ + + documented as of this encounter Procedures + +--------+ + + + | Procedure Name | Priori | Date/Time | Associated Diagnosis | Comments | | | ty | | | | + +--------+ + + + | [place] THERAPEUTIC | Routin | 05/15/2011 | Shoulder pain | | | EXERCISES | e | 8:09 AM | | | | | | PDT | | | + +--------+ + + + documented in this encounter Visit Diagnoses + + | Diagnosis | + + | Shoulder pain - Primary Pain in joint, shoulder region | + + documented in this encounter
--- OUTSIDE RECORDS SUMMARY | ~2018-07-13 | XMS | Encounter Summary ---
Demographics + + + | Address | [address] | | | [place] [address] | + + + | Home Phone | | + + + | Preferred Language | Unknown | + + + | Marital Status | | + + + | Restoration Affiliation | NON | + + + [...] [place] | | | | | [address] | | + + + + + Care Team Providers + +------+ + | Care Decorator Hand Name | Role | Phone | [...] | | | | | THERAPY | [facility] [place] | for Health | | | | | REFERRAL | [address] | and Healing, | | | | | | Phone: | 1st floor | | | | | | [phone] | [place], [place] | | | | | | Fax: | [address] | | | | | | [phone] | Phone: | | | | | | | [phone] | | | | | | | Fax: | | | | | | | [phone] | +--------+--------+ + + + + Encounter Details +--------+---------+ + + + | Date | Type | Department | Care Team | Description | +--------+---------+ + + + | 11/02/ | Office | [facility] | Lena Rain, | Shoulder pain | | 2011 | Visit | Therapy Services at | PT [address] | (Primary Dx) | | | | [facility] | [address] | | | | | [address] | [facility] [place] | | | | | Mailcode: CH3P | [phone] | | | | | [facility] | | | | | | and Healing, 1st | | | | | | floor [place], [place] | | | | | | [address] | | | | | | [phone] | | | +--------+---------+ + + + [...] might be different fr om the original. [id number] KEVON WELCH Date of : 1940 Start of care: 07/24/11 Date of onset:07/22/11 Referring/Attending Practitioner: Misael Myers MD . Primary/Referral Diagnosis/ICD-9: Encounter Diagnoses Name Primary? Shoulder pain Yes Insurance: Payor: [employer] MEDICARE Plan: ODS MEDICARE Product Type: PPO Service period from: 08/24/11-11/22/11 Number visits used/authorized: 7 [facility] PHYSICAL THERAPY: Post-op SHOULDER PO week S/P Arthroscopic SAD, DCE, labral debridement Subjective: Pt reports that his shoulder pain is mostly resolved Has some residual biceps pain in the anterior shoulder, as well as pain at end range [employer]PERINTENDENT [employer] States he has been doing [...] UE improved [facility] Pt still working on mid to [...] as 24 hours in advance by calling [phone]. Our office is open 7am-6pm and there is a Eyegroove ssage line 24 hours a day. Any [...] in their status. LENA RAIN PT [facility] REHABILITATION SERVICES AND HAND THERAPY [address] Mailcode: [address] [facility], [address] [place] [address] documented in this e ncounter Plan of Treatment Not on filedocumented as of this encounter Procedures + +--------+ + + + | Procedure Name | Priori | Date/Time | Associated Diagnosis | Comments | | | ty | | | | + +--------+ + + + | IN MANUAL THER | Routin | 11/03/2011 | Shoulder pain | | | TECH,1+REGIONS,EA 15 | e | 12:22 PM | | | | MIN | | PDT | | | + +--------+ + + + | IN THERAPEUTIC | Routin | 11/03/2011 | Shoulder [...]
--- OUTSIDE RECORDS SUMMARY | ~2018-07-13 | XMS | Encounter Summary ---
Demographics + + + | Address | [address] | | | [place] [address] | + + + | Home Phone [...] [place] | | | | | [address] | | + + + + + Care Team Providers + +------+ + | Care Gluer Machine Operator Name | Role | Phone [...] (Primary Dx) | | | | [facility] | [address] | | | | | [address] | [place], [place] | | | | | Mailcode: CH3P | [address] | | | | | [facility] | | | | | | and Healing, 1st | | | | | | floor [place], [place] | | | | | | [address] | | | | | | [phone] | | | +--------+---------+ + + + [...] [place], PT - 09/22/2013 9:46 AM PDT [id number] KEVON WELCH Date of : 1940 Start of care: 05/19/2013 Date of onset: 03/21/2013 Referring/Attending Practitioner: Misael Myers Primary/Referral Diagnosis/ICD-9: Shoulder pain, right (primary encounter diagnosis) Insurance: Payor: [employer] MEDICARE Plan: [employer] MEDICARE Product Type: P PO Service period from: 05/19/2013 to 01/18/2014 Number visits used/authorized: 08/20 [facility] PHYSICAL THERAPY TREATMENT - ORTHO [...] Right 08/11/2013 Right 09/22/2013 Flexion 141 155 [id number]* [id number] Pre 125* Post 140 145 Abduction 146 150 [id number]* [id number] Pre 95* Post 132 144 ER at [...] home exercise program as pt lives in [facility], [place] for posterior do minant shoulder strength Frequency/Duration: Follow up prn due to pt living in [facility], [place] Treatment began: 946 am Treatment ended: 1031 am This note is to serve as the discharge summary if Kevon fails to attend further Physical Th erapy appointments or contact the therapist regarding any change in their status. Alise [place], PT [facility] REHABILITATION SERVICES AND HAND THERAPY [address] Mailcode: [address] [address] documented in this encounter Plan of Treatment Not on filedocumented as of this encounter Procedures + +--------+ + + + | Procedure Name | Priori | Date/Time | Associated Diagnosis | Comments | | | ty | | | | + +--------+ + + + | [place] MANUAL THER | Routin | 09/22/2013 | Shoulder pain, | | | TECH,1+REGIONS,EA 15 | e | 12:19 PM | right | | | MIN | | PDT | | | + +--------+ + + + | [place] THERAPEUTIC | Routin | 09/22/2013 | Shoulder [...]
--- OUTSIDE RECORDS SUMMARY | ~2018-07-13 | XMS | Encounter Summary ---
Demographics + + + | Address | [address] | | | [place] [address] | + + + | Home Phone [...] [place] | | | | | [address] | | + + + + + Care Team Providers + +------+ + | Care Staff Genetic Counselor Name | Role | Phone | + [...] | | | | | PHYSICAL | [facility] [place] | [facility] | | | | | THERAPY | [address] | for Health | | | | | REFERRAL | Phone: | and Healing, | | | | | | [phone] | 1st floor | | | | | | Fax: | [place], [place] | | | | | | [phone] | [address] | | | | | | | Phone: | | | | | | | [phone] | | | | | | | Fax: | | | | | | | [phone] | +--------+--------+ + + + + Encounter Details +--------+---------+ + + + | Date | Type | Department | Care Team | Description | +--------+---------+ + + + | 05/28/ | Office | [facility] | Lena Rain, | Shoulder pain | | 2011 | Visit | Therapy Services at | PT [address] | (Primary Dx) | | | | [facility] | [address] | | | | | [address] | [place], [place] | | | | | Mailcode: CH3P | [address] | | | | | [facility] | | | | | | and Healing, 1st | | | | | | floor [facility] [place] | | | | | | [address] | | | | | | [phone] | | | +--------+---------+ + + + [...] encounter Progress Notes Lena Rain, PT - 05/29/2011 2:53 PM PDTFormatting of this note might be different fr om the original. [id number] KEVON WELCH Date of : 1940 Start of care: 02/13/2011 Date of onset: 12/24/2010 Referring/Attending Practitioner: Misael Myers MD . Primary/Referral Diagnosis/ICD-9: Encounter Diagnoses Name Primary? Shoulder pain Yes Insurance: Payor: ODS MEDICARE Plan: ODS MEDICARE Product Type: PPO Service period from:03/13/2011 to 06/11/11 Number visits used/authorized: 3 [facility] PHYSICAL THERAPY: SHOULDER SUBJECTIVE: Pt states that he is noticing gradual improvement in shoulder with exercises and with funct ional movements; is more cautious about using proper form with shoulder elevation Has been doing the HOME EXERCISE PROGRAM and the yellow Tband feels like it is still challe nging except for the rows which could be progressed to red Pt is not sure if his will be cleared to help with his shoulder PROM after surgery but he will plan on following up with PT TARA after Sx History of Presenting Problem: Kevon Welch is [...] in weeks prior to onset of pain Kevon's Goals: 1. Decrease shoulder pain 2. Complete daily activities OBJECTIVE: Posture/alignment: Rounded shoulders, forward head Palpation: exquisite tenderness at posterior cuff mm Note: Strength on a scale of 0-5, *pain UE ROM 05/29/11-unchanged R (degrees) L (degrees) SITTING UPRIGHT Shoulder Flexion 150 135 not painful Shoulder Abduction 160 110* Shoulder External Rotation 0* 40* Shoulder Internal Rotation 0* SI* MANUAL THERAPY x15 min Gr 1-2 A/P GH glides Gentle PROM in scaption supine for ER, scaption, and ABD STM post cuff mm THERAPEUTIC EXERCISE x15 Verbally reviewed HOME EXERCISE PROGRAM and pt ed on how to progress if noted below: Pulleys -flexion, bent elbow Table flexion ER with yellow Tband at diagonal with towel roll IR with yellow Tband at diagonal with towel roll Punches at waist level with yellow Tband Supine Flex pointers with assist from opp hand until painfree-discharge Rows with yellow Tband -Can progress to red THERAPEUTIC ACTIVITY x15 Discussed post op expectations, no AROM for 6 weeks, need for sling, basic post op ex revie wed; PT plan Discussed postioning of UE for comfort now ans post sx Pt ed on MHP prior to ex and stretch then cold pack as necc for pain after ex for 15 min; p t has been doing and agrees both are helpful ASSESSMENT: Pt demonstrates increased awareness of proper HOME EXERCISE PROGRAM technique Still lacking and ER>IR ROM which is still painful with attempts at PROM Is not progressing ROM due to pain but function is improving, so will transition to HOME EX ERCISE PROGRAM until closer to pre-op for review as needed Problem List: 1. Decreased range of motion [...] Pre-op training PLAN: Recheck HOME EXERCISE PROGRAM Maintain ROM with current HOME EXERCISE PROGRAM F/U in 1 month for Pre-op training closer to DOS for shoulder as needed unless he has a dec line in shoulder function prior to that Frequency/Duration: HOME EXERCISE PROGRAM for 4 weeks, then recheck 1x prior to SX schedul ed 07/21 for pre-op Treatment began: 144 Treatment ended: 0 This note is to serve as the discharge summary if Kevon fails to attend further Physical Th erapy appointments or contact the therapist regarding any change in their status. LENA RAIN, PT [facility] REHABILITATION SERVICES AND HAND THERAPY [address] Mailcode: [address] [facility], 1st Floor [facility] [address] documented in this e ncounter Plan of Treatment Not on filedocumented as of this encounter Procedures + +--------+ + + + | Procedure Name | Priori | Date/Time | Associated Diagnosis | Comments | | | ty | | | | + +--------+ + + + | DE THERAPEUTIC | Routin | 05/29/2011 | Shoulder pain | | | ACTIVITIES | e | 3:47 PM | | | | | | PDT | | | + +--------+ + + + | DE MANUAL THER | Routin | 05/29/2011 | Shoulder pain | | | TECH,1+REGIONS,EA 15 | e | 3:47 PM | | | | MIN | | PDT | | | + +--------+ + + + | DE THERAPEUTIC | Routin | 05/29/2011 | Shoulder pain | | | EXERCISES | e | 3:47 PM | | | | | | PDT | | | + +--------+ + + + documented in this encounter Visit Diagnoses + + | Diagnosis | + + | Shoulder pain - Primary Pain in joint, shoulder region | + + documented in this encounter"
--- OUTSIDE RECORDS SUMMARY | ~2018-07-13 | XMS | Encounter Summary ---
Demographics + + + | Address | [address] | | | [place] [address] | + + + | Home Phone [...] [place] | | | | | [address] | | + + + + + Care Team Providers + +------+ + | Care Elementary [employer] Professional Name | Role | Phone | [...] | | | | | THERAPY | [place], [place] | for Health | | | | | REFERRAL | [address] | and Healing, | | | | | | | 1st floor | | | | | | | [place], [place] | | | | | | | [address] | | | | | | | Phone: | | | | | | | [phone] | | | | | | | Fax: | | | | | | | [phone] | +--------+--------+ + + + + Encounter Details +--------+---------+ + + + | Date | Type | Department | Care Team | Description | +--------+---------+ + + + | 08/11/ | Office | [facility] | Rupesh, | Shoulder pain, right | | 2013 | Visit | Therapy Services at | Alise, PT [address] | (Primary Dx) | | | | [facility] | [address] | | | | | [address] | [place], [place] | | | | | Mailcode: [facility] | [address] | | | | | [facility] | | | | | | and Healing, 1st | | | | | | floor [place], [place] | | | | | | [address] | | | | | | [phone] | | | +--------+---------+ + + + [...] [place], PT - 08/11/2013 4:09 PM PDT [id number] KEVON WELCH Date of : 1940 Start of care: 05/19/2013 Date of onset: 03/21/2013 Referring/Attending Practitioner: Misael Myers Primary/Referral Diagnosis/ICD-9: Shoulder pain, right (primary encounter diagnosis) Insurance: Payor: [employer] MEDICARE Plan: [employer] MEDICARE Product Type: P PO Service period from: 05/19/2013 to - Number visits used/authorized: [facility] PHYSICAL THERAPY TREATMENT - ORTHO SUBJECTIVE: [...] Right 07/20/2013 Right 08/11/2013 Flexion 141 155 [id number]* [id number] Pre 125* Post 140 Abduction 146 150 [id number]* pptf526 Pre 95* Post 132 ER at 90 [...] home exercise program as pt lives in [facility], [place] for posterior do minant shoulder strength Frequency/Duration: Follow up prn due to pt living in [facility], [place] Treatment began: 0407 pm Treatment ended: 0452 pm This note is to serve as the discharge summary if Kevon fails to attend further Physical Th erapy appointments or contact the therapist regarding any change in their status. Alise [place], PT [facility] REHABILITATION SERVICES AND HAND THERAPY [address] Mailcode: [place] [address] documented in this encounter Plan of Treatment Not on filedocumented as of this encounter Procedures + +--------+ + + + | Procedure Name | Priori | Date/Time | Associated Diagnosis | Comments | | | ty | | | | + +--------+ + + + | MA MANUAL THER | Routin | 08/11/2013 | Shoulder pain, | | | TECH,1+REGIONS,EA 15 | e | 5:16 PM | right | | | MIN | | PDT | | | + +--------+ + + + | MA THERAPEUTIC | Routin | 08/11/2013 | Shoulder [...]
--- OUTSIDE RECORDS SUMMARY | ~2018-07-13 | XMS | Encounter Summary ---
Demographics + + + | Address | [address] | | | [place] [address] | + + + | Home Phone | | + + + | Preferred Language | Unknown | + + + | Marital Status | | + + + | Buddhist Affiliation | NON | + + + [...] [place] | | | | | [address] | | + + + + + Care Team Providers + +------+ + | Care Director Of Volunteer Services Name | Role | Phone | + [...] | | | | Thoracic or | [address] | [place], [place] | | | | | lumbosacral | Phone: | [phone] | | | | | neuritis or | [phone] | Phone: | | | | | radiculitis, | Fax: | [phone] | | | | | unspecified | [phone] | Fax: | | | | | | | [phone] | | | | | Degeneration | [...] | intervertebral disc; | | | | [facility] | [facility] | Degeneration of | | | | [address] | Road [place], [place] | lumbar | | | | Mailcode: CH3P | [phone] | intervertebral disc | | | | [facility] | | | | | | and Ned, 1st | | | | | | floor [place], [place] | | | | | | [address] | | | | | | [phone] | | | +--------+---------+ + + + [...] Dailey, PT - 12/25/2011 8:46 AM PST [id number] KEVON WELCH Date of : 1940 Start of care: 10/09/2011 Date of onset: 09/10/11 Referring/Attending Practitioner: Alcira Bocanegra PA ; Clara Fernandez/Referral Di agnosis/ICD-9: 722.10H Herniated lumbar intervertebral disc Insurance: Payor: ODS MEDICARE Plan: ODS MEDICARE Product Type: PPO Service period from: 12/25/2011 to: 01/23/12 Number visits used/authorized: 6/ Neurologist: Dr. Rafal Benites [facility] [address] [place] [address] (Office) Neurosurgeon: Sen Whitman [address] [place] [address] [facility] PHYSICAL THERAPY SUBJECTIVE Age: 71 [...] month ago. He was bending over to citrus picker a garden hose and felt increased [...] Social History: lives with Recreational Activities/Hobbies: plays [email or web address]; reading; does a lot of computer/keyboarding Functional [...] disectomy. 1x/month to accomadate long drive from [place]. Treatment began: 830 Treatment ended: 915 This [...]
--- OUTSIDE RECORDS SUMMARY | ~2018-07-13 | XMS | Encounter Summary ---
Demographics + + + | Address | [address] | | | [place] [address] | + + + | Home Phone | | + + + | Preferred Language | Unknown | + + + | Marital Status | | + + + | Protestant Affiliation | NON | + + + | Race | White | + + + | Ethnic Group | Not or | + + + Author + + + | Author | [facility] | + + + | Organization | [facility] | + + + | Address | Unknown | + + + | Phone | Unavailable | + + + Support + + + + + | Name | Relationship | Address | Phone | + + + + + | Elizabeth Welch | ECON | [address] | | | | | [place] | | | | | [address] | | + + + + + Care Team Providers + +------+ + | Care Optical Glass Wet Inspector Name | Role | Phone | [...] | | sprain | REFERRING | [address], | | | | | Osteoarthros | PROVIDER PER | [place] | | | | | [place], | [place] | [address] | | | | | unspecified | | Phone: | | | | | whether | | [phone] | | | | | generalized | | Fax: | | | | | or | | [phone] | | | | | localized, | [...] | | | | | | | PSYCH RN | | | | | | | [place] SHLDR | | | | | | | ARTHROSCOP,P | | | | | | | ART | | | | | | | ACROMIOPLAS | | | | | | | W/CORACOACRO | | | | | | | M [place] SHLDR | | | | | | | ARTHROSCOP,S | | | | | | | URG,DIS | | | | | | | CLAVICULECTO | | | | | | | MY [place] | | | | | | | [...] | | | Ave Mailcode: CH12A | [place], [place] | | | | | [facility] | [address] | | | | | and [facility] | [phone] | | | | | Floor [place], [place] | | | | | | [address] | | | | | | [phone] | | | +--------+---------+ + + + [...]
--- OUTSIDE RECORDS SUMMARY | ~2018-07-13 | XMS | Encounter Summary ---
Demographics + + + | Address | [address] | | | [place] [address] | + + + | Home Phone [...] [place] | | | | | [address] | | + + + + + Care Team Providers + +------+ + | Care Financial Sales Assistant Name | Role | Phone | + +------+ + | Doyle Johsnon MD | PCP | | + +------+ [...] pain | [address] | [address] | | | | | Procedures | [facility] | Mailcode: | | | | | PHYSICAL | Rd | [facility] | | | | | THERAPY | [place], [place] | for Health | | | | | REFERRAL | [address] | and Healing, | | | | | | | 1st floor | | | | | | | [place], [place] | | | | | | | [address] | | | | | | | Phone: | | | | | | | [phone] | | | | | | | Fax: | | | | | | | [phone] | +--------+--------+ + + + + Encounter Details +--------+---------+ + + + | Date | Type | Department | Care Team | Description | +--------+---------+ + + + | 08/18/ | Office | [facility] | Rupesh, | Shoulder pain, right | | 2013 | Visit | Therapy Services at | Alise, PT [address] | (Primary Dx) | | | | [facility] | [address] | | | | | [address] | [place], [place] | | | | | Mailcode: [facility] | [address] | | | | [facility] | | | | | | and Healing, 1st | | | | | | floor [place], [place] | | | | | | [address] | | | | | | [phone] | | | +--------+---------+ + + + [...] this encounter Progress Notes Hayes Casiano - 08/18/2013 10:35 AM PDTFormatting of this note might be different from the o prabhainal. [id number] KEVON WELCH Date of : 1940 Start of care: 05/19/2013 Date of onset: 03/21/2013 Referring/Attending Practitioner: Misael Myers Primary/Referral Diagnosis/ICD-9: Shoulder pain, right (primary encounter diagnosis) Insurance: Payor: [employer] MEDICARE Plan: [employer] MED[employer]ARE Product Type: P PO Service period from: 05/19/2013 to 01/18/2014 Number visits used/authorized: 06/20 [facility] PHYSICAL [facility] TREATMENT - ORTHO SUBJECTIVE: Current: Right shoulder range of motion and pain are improved by stretches but doesn't seem to last and has similar function overall. Difficulty lifting arm overhead. History of Presenting Problem: Kevon Welch is [...] and a half. Pt is very right wsiam Lund's Goals: 1. Return to full use of arm 2. Learn home exercise program OBJECTIVE: Posture/alignment/observation: rounded shoulders, mild inferior angle scapular winging RANGE OF MOTION Shoulder AROM Right Left Right 07/20/2013 Right 08/11/2013 Flexion 141 155 [id number]* [id number] Pre 125* Post 140 Abduction 146 150 [id number]* [id number] Pre 95* Post 132 ER at 90 [...] muscle belly and insert ion Manual therapy, 33 minutes: CFM supraspinatus insertion Posterior GH mobilization, grade II Inferior GH mobilization, grade II passive range of motion into abduction and scaption CFM infraspinatus Myofascial release of infraspinatus muscle belly Self release of infraspinatus using tennis ball Therapeutic exercise, 10 minutes: Table top shoulder flexion, 3 x 10 sec Wall walk flexion, 3 x 10 sec Table top shoulder abduction, 1 x 10 sec Sidelying external rotation, 3x8 Home exercise program as of 08/11/2013 Sidelying shoulder ER with 2# Rows with green band Extension rows with green band IR series behind back Table top shoulder flexion Wall walk shoulder flexion (adjusted 08/18/2013) Table top shoulder abduction ER stretch at corner ASSESSMENT: Kevon is a 72 year old male who presents with right shoulder pain for 4 months duration fol lowing carrying chair up flight of stairs. He was able to do some exercises well but a few o thers were painful. His supraspinatus was less irritated since last visit but his infraspin atus is now tender in tendon and muscle belly. Soft tissue release resolved some pain durin g active external rotation. His impairments now appear to be rotator cuff muscle sensitivit y and weakness causing pain in movements. He will benefit from continued soft tissue work t o supra/infraspinatus as needed and range of motion activities. Kevon requires services luis a t can be safely and effectively performed only by a qualified therapist to address the follo wing problems and achieve the following goals: DISCHARGE FUNCTIONAL GOALS, discussed with Kevon, due in 6 weeks: Pt will demonstrate 160 deg shoulder flexion in order to reach high shelf Pt will report washing back with 0/10 pain Pt will be independent with home exercise program 5/7 days PLAN OF CARE: Focus on home exercise program as pt lives in [facility], [place] for posterior do minant shoulder strength Frequency/Duration: Follow up prn due to pt living in [facility], [place] Treatment began: 1031 am Treatment ended: 1114 am This note is to serve as [...] in the student's note. Alise Washington, PT [facility] [address] Mailcode: [place] [address] documented in this encounter Plan of Treatment Not on filedocumented as of this encounter Procedures + +--------+ + + + | Procedure Name | Priori | Date/Time | Associated Diagnosis | Comments | | | ty | | | | + +--------+ + + + | MT MANUAL THER | Routin | 08/18/2013 | Shoulder pain, | | | TECH,1+REGIONS,EA 15 | e | 6:01 PM | right | | | MIN | | PDT | | | + +--------+ + + + | MT THERAPEUTIC | Routin | 08/18/2013 | Shoulder pain, | | | EXERCISES | e | 6:01 PM | right | | | | | PDT | | | + +--------+ + + + documented in this encounter Visit Diagnoses + + | Diagnosis | + + | Shoulder pain, right - Primary Pain in joint, shoulder region | + + documented in this encounter
--- OUTSIDE RECORDS SUMMARY | ~2018-07-13 | XMS | Encounter Summary ---
Demographics + + + | Address | [address] | | | [place] [address] | + + + | Home Phone [...] [place] | | | | | [address] | | + + + + + Care Team Providers + +------+ + | Care Digester Cook Name | Role | Phone | + [...] | | | | | PHYSICAL | [place], [place] | [address] | | | | | THERAPY | [address] | for Health | | | | | REFERRAL | Phone: | and Healing, | | | | | | [phone] | 1st floor | | | | | | Fax: | [place], [place] | | | | | | [phone] | [address] | | | | | | | Phone: | | | | | | | [phone] | | | | | | | Fax: | | | | | | | [phone] | +--------+--------+ + + + + Encounter Details +--------+---------+ + + + | Date | Type | Department | Care Team | Description | +--------+---------+ + + + | 07/23/ | Office | [facility] | Philly Rain, | Shoulder pain | | 2011 | Visit | Therapy Services at | PT [address] | (Primary Dx) | | | | [facility] | Celestine Carmen | | | | | [address] | [place], [place] | | | | | Mailcode: CH3 | [address] | | | | | [facility] | | | | | | and Ned, 1st | | | | | | floor [place], [place] | | | | | | [address] | | | | | | [phone] | | | +--------+---------+ + + + [...] might be different fr om the original. [id number] KEVON WELCH Date of : 1940 Start of care: 07/24/11 Date of onset:07/22/11 Referring/Attending Practitioner: Misael Myers MD . Primary/Referral Diagnosis/ICD-9: Encounter Diagnoses Name Primary? Shoulder pain Yes Insurance: Payor: ODS MEDICARE Plan: ODS MEDICARE Product Type: PPO Service period from: 07/24/11-08/23/11 Number visits used/authorized: 1 [facility] PH[facility]ICAL [facility]: Post-op SHOULDER POST OP DAY [...] that all cancellations be made at [facility] 24 hours in advance by calling [phone]. Our office is open 7am-6pm and there is a [employer] ssage line 24 hours a day. Any [...] change in their status. PHILLY RAIN PT [facility]IL[facility] AND HAND THERAPY [address] Mailcode: [address] And [facility], [address] [place] [address] documented in this e ncounter Plan [...] | + +--------+ + + + | [place] THERAPEUTIC | Routin | 07/24/2011 | Shoulder pain | | | ACTIVITIES | e | 4:38 PM | | | | | | PDT | | | + +--------+ + + + | [place] THERAPEUTIC | Routin | 07/24/2011 | Shoulder pain | | | EXERCISES | e | 4:38 PM | | | | | | PDT | | | + +--------+ + + + | [place] PHYS THERAPY | Routin | 07/24/2011 | [...]
--- OUTSIDE RECORDS SUMMARY | ~2018-07-13 | XMS | Encounter Summary ---
Demographics + + + | Address | [address] | | | [place] [address] | + + + | Home Phone [...] [place] | | | | | [address] | | + + + + + Care Team Providers + +------+ + | Care Corrections Corporal Name | Role | Phone | + [...] | | | | | Procedures | [facility] | Mailcode: | | | | | PHYSICAL | Rd | [facility] | | | | | THERAPY | [place], [place] | for Health | | | | | REFERRAL | [address] | and Healing, | | | | | | | 1st floor | | | | | | | [place], [place] | | | | | | | [address] | | | | | | | Phone: | | | | | | | [phone] | | | | | | | Fax: | | | | | | | [phone] | +--------+--------+ + + + + Encounter Details +--------+---------+ + + + | Date | Type | Department | Care Team | Description | +--------+---------+ + + + | 08/18/ | Office | [facility] | Rupesh, | Shoulder pain, right | | 2013 | Visit | Therapy Services at | Alise, PT [address] | (Primary Dx) | | | | [facility] | [address] | | | | | [address] | [place], [place] | | | | | Mailcode: [facility] | [address] | | | | | [facility] | | | | | | and Healing, 1st | | | | | | floor [place], [place] | | | | | | [address] | | | | | | [phone] | | | +--------+---------+ + + + [...] might be different from the o prabhainal. [id number] KEVON WELCH Date of : 1940 Start of care: 05/19/2013 Date of onset: 03/21/2013 Referring/Attending Practitioner: Misael Myers Primary/Referral Diagnosis/ICD-9: Shoulder pain, right (primary encounter diagnosis) Insurance: Payor: [employer] MEDIC[employer] Plan: [employer] Product Type: P PO Service period from: 05/19/2013 to 01/18/2014 Number visits used/authorized: 06/20 [facility] PHYSICAL [facility] TREATMENT - ORTHO SUBJECTIVE: Current: [...] Right 07/20/2013 Right 08/11/2013 Flexion 141 155 [id number]* [id number] Pre 125* Post 140 Abduction 146 150 [id number]* [id number] Pre 95* Post 132 ER at 90 [...] home exercise program as pt lives in [facility], [place] for posterior do minant shoulder strength Frequency/Duration: Follow up prn due to pt living in [facility], [place] Treatment began: 1031 am Treatment [...] in the student's note. Alise Washington, PT [facility] HAND THERAPY [address] Mailcode: [place] [address] documented in this encounter Plan of Treatment Not on filedocumented as of this encounter Procedures + +--------+ + + + | Procedure Name | Priori | Date/Time | Associated Diagnosis | Comments | | | ty | | | | + +--------+ + + + | [place] MANUAL THER | Routin | 08/18/2013 | Shoulder pain, | | | TECH,1+REGIONS,EA 15 | e | 6:01 PM | right | | | MIN | | PDT | | | + +--------+ + + + | [place] THERAPEUTIC | Routin | 08/18/2013 | Shoulder [...]
--- OUTSIDE RECORDS SUMMARY | ~2018-07-13 | XMS | Encounter Summary ---
Demographics + + + | Address | [address] | | | [place] [address] | + + + | Home Phone | | + + + | Preferred Language | Unknown | + + + | Marital Status | | + + + | Mu-Ism Affiliation | NON | + + + [...] [place] | | | | | [address] | | + + + + + Care Team Providers + +------+ + | Care Final Inspector Truck Trailer Name | Role | Phone | + [...] | | | | | Procedures | [facility] | Mailcode: | | | | | PHYSICAL | Rd | [facility] | | | | | THERAPY | [place], [place] | for Health | | | | | REFERRAL | [address] | and Healing, | | | | | | Phone: | 1st floor | | | | | | [phone] | [place], [place] | | | | | | Fax: | [address] | | | | | | [phone] | Phone: | | | | | | | [phone] | | | | | | | Fax: | | | | | | | [phone] | +--------+--------+ + + + + Encounter [...] back pain; Lumbar | | | | [facility] | [facility] [address] | radiculopathy; | | | | [address] | [place], [place] | Herniated lumbar | | | | Mailcode: CH3P | [address] | intervertebral disc; | | | | [facility] | | 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 [id number] KEVON WELCH Date of : 1940 Start of care: 10/09/2011 Date of onset: 09/10/11 Referring/Attending Practitioner: Alcira Bocanegra PA . Primary/Referral Diagnosis/ICD-9: 722.10H Herniated lumbar intervertebral disc Insurance: Payor: ODS MEDICARE Plan: ODS MEDICARE Product Type: PPO Service period from: 10/09/2011 to: 11/08/11 Number visits used/authorized: 4/ Neurologist: Dr. Rafal Benites [facility] [address] [place] [address] (Office) [facility] PHYSICAL THERAPY SUBJECTIVE Age: 71 y.o. Sex: [...] month ago. 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 LENA RAIN PT [facility] REHABIL[facility]ATION SERVICES AND HAND THERAPY [address] Mailcode: Ch[facility]p [facility], 1st [facility] [address] documented in this e ncounter Plan of Treatment Not on filedocumented as of this encounter Procedures + +--------+ + + + | Procedure Name | Priori | Date/Time | Associated Diagnosis | Comments | | | ty | | | | + +--------+ + + + | [place] THERAPEUTIC | Routin | 10/24/2011 | Shoulder [...]
--- OUTSIDE RECORDS SUMMARY | ~2018-07-13 | XMS | Encounter Summary ---
Demographics + + + | Address | [address] | | | [place] [address] | + + + | Home Phone [...] [address] | | | | | [place] | | | | | [address] | | + + + + + Care Team Providers + +------+ + | Care Pearl Peller Name | Role | Phone | + [...] | | shoulder | Provider Per | [address] | | | | | pain | Patient NO | [address] | | | | | | REFERRING | Rd [place], | | | | | | PROVIDER PER | [place] | | | | | | [place] | [address] | | | | | | | Phone: | | | | | | | [phone] | | | | | | | Fax: | | | | | | | [phone] | +--------+--------+ + + + + Encounter Details +--------+---------+ + + + | Date | Type | Department | Care Team | Description | +--------+---------+ + + + | 03/27/ | Office | Orthopaedics at | Misael Myers MD | Rotator cuff | | 2011 | Visit | [facility] [address] | [address] | tendinitis (Primary | | | | Ave Mailcode: CH12A | [address] | Dx) | | | | [facility] | [place], [place] | | | | | and [facility], | [address] | | | | | Floor [place], [place] | [phone] | | | | | [address] | | | | | | [phone] | | | +--------+---------+ + + + [...]
--- OUTSIDE RECORDS SUMMARY | ~2018-07-13 | XMS | Encounter Summary ---
Demographics + + + | Address | [address] | | | [place] [address] | + + + | Home Phone | | + + + | Preferred Language | Unknown | + + + | Marital Status | | + + + | Restorationism Affiliation | NON | + + + [...] [place] | | | | | [address] | | + + + + + Care Team Providers + +------+ + | Care Stockroom Helper Name | Role | Phone | + [...] | | | | | THERAPY | [facility] [place] | for Health | | | | | REFERRAL | [address] | and Healing, | | | | | | Phone: | 1st floor | | | | | | [phone] | [facility] [place] | | | | | | Fax: | [address] | | | | | | [phone] | Phone: | | | | | | | [phone] | | | | | | | Fax: | | | | | | | [phone] | +--------+--------+ + + + + Encounter Details +--------+---------+ + + + | Date | Type | Department | Care Team | Description | +--------+---------+ + + + | 10/22/ | Office | [facility] | Lena Rain, | Herniated lumbar | | 2011 | Visit | Therapy Services at | PT [address] | intervertebral disc; | | | | [facility] | [address] | Degeneration of | | | | [address] | [place], [place] | lumbar | | | | Mailcode: CH3P | [address] | intervertebral disc; | | | | [facility] | | Low back pain; | | | | and Healing, 1st | | Lumbar radiculopathy | | | | floor [place], [place] | | | | | | [address] | | | | | | [phone] | | | +--------+---------+ + + + [...] might be different fr om the original. [id number] KEVON WELCH Date of : 1940 Start of care: 10/09/2011 Date of onset: 09/10/11 Referring/Attending Practitioner: Alcira Bocanegra PA . Primary/Referral Diagnosis/ICD-9: 722.10H Herniated lumbar intervertebral disc Insurance: Payor: ODS MEDICARE Plan: ODS MEDICARE Product Type: PPO Service period from: 10/09/2011 to: 11/08/11 Number visits used/authorized: 5/ Neurologist: Dr. Lyles [facility] [address] [place] [address] (Office) [facility] PHYSICAL THERAPY SUBJECTIVE Age: [...] month ago. 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 LENA RAIN PT [facility] REH[facility]IL[facility] AND HAND THERAPY [address] Mailcode: [facility], [address] [place] [address] documented in this e ncounter Plan of Treatment Not on filedocumented as of this encounter Procedures + +--------+ + + + | Procedure Name | Priori | Date/Time | Associated Diagnosis | Comments | | | ty | | | | + +--------+ + + + | [place] THERAPEUTIC | Routin | 10/23/2011 | Herniated [...]
--- OUTSIDE RECORDS SUMMARY | ~2018-07-13 | XMS | Encounter Summary ---
Demographics + + + | Address | [address] | | | [place] [address] | + + + | Home Phone | | + + + | Preferred Language | Unknown | + + + | Marital Status | | + + + | Muslim Affiliation | NON | + + + | Race | White | + + + | Ethnic Group | Not or | + + + Author + + + | Author | [facility] | + + + | Organization | [facility] | + + + | Address | Unknown | + + + | Phone | Unavailable | + + + Support + + + + + | Name | Relationship | Address | Phone | + + + + + | Elizabeth Welch | ECON | [address] | | | | | [place] | | | | | [address] | | + + + + + Care Team Providers + +------+ + | Care Pulping Machine Operator Name | Role | Phone [...] | | sprain | REFERRING | [address] [place], | | | | | Osteoarthros | PROVIDER PER | [place] | | | | | [place], | [place] | [address] | | | | | unspecified | | Phone: | | | | | whether | | [phone] | | | | | generalized | | Fax: | | | | | or | | [phone] | | | | | localized, | [...] | | | | | | | FLAKE MILLER HELPER | | | | | | | [place] SHLDR | | | | | | | ARTHROSCOP,P | | | | | | | ART | | | | | | | ACROMIOPLAS | | | | | | | W/CORACOACRO | | | | | | | M [place] SHLDR | | | | | | | ARTHROSCOP,S | | | | | | | URG,DIS | | | | | | | CLAVICULECTO | | | | | | | MY [place] | | | | | | | [...] | | | Ave Mailcode: CH12A | [place], [place] | | | | | [facility] | [address] | | | | | and [facility], [facility] | [phone] | | | | | Floor [place], [place] | | | | | | [address] | | | | | | [phone] | | | +--------+---------+ + + + [...]
--- OUTSIDE RECORDS SUMMARY | ~2018-07-13 | XMS | Encounter Summary ---
Demographics + + + | Address | [address] | | | [place] [address] | + + + | Home Phone [...] [place] | | | | | [address] | | + + + + + Care Team Providers + +------+ + | Care Land Surveying Manager Name | Role | Phone | [...] | pain | [address] | [address] | | | | | Procedures | Ave | Mailcode: | | | | | PHYSICAL | [facility] [place] | [facility] | | | | | THERAPY | [address] | for Health | | | | | REFERRAL | Phone: | and Healing, | | | | | | [phone] | 1st floor | | | | | | Fax: | [place], [place] | | | | | | [phone] | [address] | | | | | | | Phone: | | | | | | | [phone] | | | | | | | Fax: | | | | | | | [phone] | +--------+--------+ + + + + Encounter Details +--------+---------+ + + + | Date | Type | Department | Care Team | Description | +--------+---------+ + + + | 08/19/ | Office | [facility] | Lena Rain, | Shoulder pain | | 2011 | Visit | Therapy Services at | PT [address] | (Primary Dx) | | | | [facility] | [address] | | | | | [address] | [place], [place] | | | | | Mailcode: CH3P | [address] | | | | | [facility] | | | | | | and Healing, 1st | | | | | | floor [facility] [place] | | | | | | [address] | | | | | | [phone] | | | +--------+---------+ + + + [...] might be different fr om the original. [id number] KEVON WELCH Date of : 1940 Start [...] request that all cancellations be made at [facility] 24 hours in advance by calling [phone]. Our office is open 7am-6pm and there [...] change in their status. LENA RAIN PT [facility] REHABILITATION SERVICES AND HAND THERAPY [address] Mailcode: [address], [address] [facility] [address] documented in this e ncounter Plan of Treatment Not on filedocumented as of this encounter Procedures + +--------+ + + + | Procedure Name | Priori | Date/Time | Associated Diagnosis | Comments | | | ty | | | | + +--------+ + + + | [place] MANUAL THER | Routin | 08/20/2011 | Shoulder pain | | | TECH,1+REGIONS,EA 15 | e | 1:04 PM | | | | MIN | | PDT | | | + +--------+ + + + | [place] THERAPEUTIC | Routin | 08/20/2011 | Shoulder [...]
--- OUTSIDE RECORDS SUMMARY | ~2018-07-13 | XMS | Encounter Summary ---
Demographics + + + | Address | [address] | | | [place] [address] | + + + | Home Phone [...] [place] | | | | | [address] | | + + + + + Care Team Providers + +------+ + | Care Shipping Support Clerk Name | Role | Phone | [...] | | shoulder | Provider Per | [address] | | | | | pain | Patient NO | [address] | | | | | | REFERRING | Rd [place], | | | | | | PROVIDER PER | [place] | | | | | | PT | [address] | | | | | | | Phone: | | | | | | | [phone] | | | | | | | Fax: | | | | | | | [phone] | +--------+--------+ + + + + Encounter Details +--------+---------+ + + + | Date | Type | Department | Care Team | Description | +--------+---------+ + + + | 04/27/ | Office | Orthopaedics at | Misael Myers MD | Shoulder pain | | 2011 | Visit | [facility] [address] | [address] | (Primary Dx); | | | | Ave Mailcode: CH12A | [address] | Rotator cuff | | | | [facility] | [place], [place] | tendinitis; | | | | and | [address] | Osteoarthrosis, | | | | Floor [place], [place] | [phone] | unspecified whether | | | | [address] | | generalized or | | | | [phone] | | localized, shoulder | | | [...] S: Pt undergoing PT at clinic in [place] 200 miles from here; has been seen [...] RX as appropriate LENA RAIN PT [facility] [address] Mailcode: Ch12a [facility], [address] [place] [address] Misael Vega MD - 04/28/2011 11:09 [...]
--- OUTSIDE RECORDS SUMMARY | ~2018-07-13 | XMS | Encounter Summary ---
Demographics + + + | Address | [address] | | | [place] [address] | + + + | Home Phone [...] [place] | | | | | [address] | | + + + + + Care Team Providers + +------+ + | Care Shearing Shed Hand Name | Role | Phone | [...] | | | | THERAPY | [facility] [place] | for Health | | | | | REFERRAL | [address] | and Healing, | | | | | | Phone: | 1st floor | | | | | | [phone] | [place], [place] | | | | | | Fax: | [address] | | | | | | [phone] | Phone: | | | | | | | [phone] | | | | | | | Fax: | | | | | | | [phone] | +--------+--------+ + + + + Encounter Details +--------+---------+ + + + | Date | Type | Department | Care Team | Description | +--------+---------+ + + + | 10/15/ | Office | [facility] Physical | Philly Rain, | Low back pain; | | 2011 | Visit | Therapy Services at | PT [address] | Lumbar | | | | [facility] | [facility] [address] | radiculopathy; | | | | [address] | [place], [place] | Herniated lumbar | | | | Mailcode: CH3P | [address] | intervertebral disc; | | | | [place] [facility] | | Degeneration of | | | | and Healing, 1st | | lumbar | | | | floor [place], [place] | | intervertebral disc | | | | [address] | | | | | | [phone] | | | +--------+---------+ + + + [...] might be different fr om the original. [id number] [place] Date of : 1940 Start of care: 10/09/2011 Date of onset: 09/10/11 Referring/Attending Practitioner: Alcira Bocanegra PA . Primary/Referral Diagnosis/ICD-9: 722.10H Herniated lumbar intervertebral disc Insurance: Payor: ODS MEDICARE Plan: ODS MEDICARE Product Type: PPO Service period from: 10/09/2011 to: 11/08/11 Number visits used/authorized: 3/ Neurologist: Dr. Rafal Benites [facility] [address] [place] [address] (Office) [facility] PHYSICAL THERAPY SUBJECTIVE Age: 71 [...] month ago. 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 PHILLY RAIN PT [facility] RE[facility] SERVICES AND HAND THERAPY [address] Mailcode: [address] [facility], [address] [place] [address] documented in this e ncounter Plan of Treatment Not on filedocumented as of this encounter Procedures + +--------+ + + + | Procedure Name | Priori | Date/Time | Associated Diagnosis | Comments | | | ty | | | | + +--------+ + + + | AR THERAPEUTIC | Routin | 10/16/2011 | Low [...] + | AR THERAPEUTIC | Routin | 10/16/2011 | Low [...]
--- OUTSIDE RECORDS SUMMARY | ~2018-07-13 | XMS | Encounter Summary ---
Demographics + + + | Address | [address] | | | [place] [address] | + + + | Home Phone [...] [place] | | | | | [address] | | + + + + + Care Team Providers + +------+ + | Care Computer Systems Technician Name | Role | Phone | [...] | | | | | Procedures | [facility] | Mailcode: | | | | | PHYSICAL | Rd | [facility] | | | | | THERAPY | [place], [place] | for Health | | | | | REFERRAL | [address] | and Healing, | | | | | | | 1st floor | | | | | | | [place], [place] | | | | | | | [address] | | | | | | | Phone: | | | | | | | [phone] | | | | | | | Fax: | | | | | | | [phone] | +--------+--------+ + + + + Encounter [...] | | [facility] | [address] | | | | | [address] | [place], [place] | | | | | Mailcode: CH3P | [address] | | | | | [facility] | | | | | | and Ned, 1st | | | | | | floor [place], [place] | | | | | | [address] | | | | | | [phone] | | | +--------+---------+ + + + [...] [place], PT - 07/20/2013 2:33 PM PDT [id number] K[place] WELCH Date of : 1940 Start of care: 05/19/2013 Date of onset: 03/21/2013 Referring/Attending Practitioner: Misael Myers Primary/Referral Diagnosis/ICD-9: Shoulder pain (primary encounter diagnosis) Insurance: Payor: [employer] ODS MEDICARE Plan: [id number] MEDICARE Product Type: P PO Service period from: 05/19/2013 to - Number visits used/authorized: 3- [facility] PHYSICAL THERAPY TREATMENT - ORTHO SUBJECTIVE: Current: Right shoulder is so-so. Has been traveling in [place], [place], and [place]. Di fficulty lifting suitcase to overhead bin and pulling through city. Stopped taking ibuprofe n and had spontaneous bruising - will call PCP once home in [facility]. Noticed minimal silva ge in shoulder [...] Right Left Right 07/20/2013 Flexion 141 155 [id number]* [id number] Abduction 146 150 [id number]* [id number] ER at 90 deg abd 90 (60 [...] home exercise program as pt lives in [place], [place] for posterior do minant shoulder strength Frequency/Duration: Follow up prn due to pt living in [place], [place] and traveling to [facility] for 4 weeks Treatment began: 0230 pm Treatment ended: 0315 pm This note is to serve as the discharge summary if Kevon fails to attend further Physical Th erapy appointments or contact the therapist regarding any change in their status. Alise [place], PT [facility] RE[facility]IL[facility]ATION SERVICES AND HAND THERAPY [address] Mailcode: [place] [address] documented in this encounter Plan of Treatment Not on filedocumented as of this encounter Procedures + +--------+ + + + | Procedure Name | Priori | Date/Time | Associated Diagnosis | Comments | | | ty | | | | + +--------+ + + + | RI MANUAL THER | Routin | 07/20/2013 | [...]
--- OUTSIDE RECORDS SUMMARY | ~2018-07-13 | XMS | Encounter Summary ---
Demographics + + + | Address | [address] | | | [place] [address] | + + + | Home Phone | | + + + | Preferred Language | Unknown | + + + | Marital Status | | + + + | Alevism Affiliation | NON | + + + [...] [place] | | | | | [address] | | + + + + + Care Team Providers + +------+ + | Care Gravel Truck Driver Name | Role | Phone [...] | | | | Procedures | [facility] | Mailcode: | | | | | PHYSICAL | Rd | [facility] | | | | | THERAPY | [place], [place] | for Health | | | | | REFERRAL | [address] | and Healing, | | | | | | | 1st floor | | | | | | | [place], [place] | | | | | | | [address] | | | | | | | Phone: | | | | | | | [phone] | | | | | | | Fax: | | | | | | | [phone] | +--------+--------+ + + + + Encounter Details +--------+---------+ + + + | Date | Type | Department | Care Team | Description | +--------+---------+ + + + | 07/20/ | Office | [place] [facility] | Rupesh, | Shoulder pain | | 2013 | Visit | Therapy Services at | Alise, PT [address] | (Primary Dx) | | | | [facility] | [address] | | | | | [address] | [place], [place] | | | | | Mailcode: CH3P | [address] | | | | | [facility] | | | | | | and Ned, 1st | | | | | | floor [place], [place] | | | | | | [address] | | | | | | [phone] | | | +--------+---------+ + + + [...] [place], PT - 07/20/2013 2:33 PM PDT [id number] K[place] W[place]CH Date of : 1940 Start of care: 05/19/2013 Date of onset: 03/21/2013 Referring/Attending Practitioner: Misael Myers Primary/Referral Diagnosis/ICD-9: Shoulder pain (primary encounter diagnosis) Insurance: Payor: [employer] ODS MEDICARE Plan: [employer] MEDICARE Product Type: P PO Service period from: 05/19/2013 to - Number visits used/authorized: 3- [facility] PHYSICAL THERAPY TREATMENT - ORTHO SUBJECTIVE: Current: Right shoulder is so-so. Has been traveling in [place], [place], and [place]. Di fficulty lifting suitcase to overhead bin and pulling through city. Stopped taking ibuprofe n and had spontaneous bruising - will call PCP once home in [facility]. Noticed minimal silva ge in shoulder motion [...] Right Left Right 07/20/2013 Flexion 141 155 [id number]* [id number] Abduction 146 150 [id number]* [id number] ER at 90 deg abd 90 (60 [...] home exercise program as pt lives in [place], [place] for posterior do minant shoulder strength Frequency/Duration: Follow up prn due to pt living in [place], [place] and traveling to [facility] for 4 weeks Treatment began: 0230 pm Treatment ended: 0315 pm This note is to serve as the discharge summary if Kevon fails to attend further Physical Th erapy appointments or contact the therapist regarding any change in their status. Alise [place], PT [facility] RE[facility]ABIL[facility] SERVICES AND HAND THERAPY [address] Mailcode: [place] [address] documented in this encounter Plan of Treatment Not on filedocumented as of this encounter Procedures + +--------+ + + + | Procedure Name | Priori | Date/Time | Associated Diagnosis | Comments | | | ty | | | | + +--------+ + + + | MA MANUAL THER | Routin | 07/20/2013 | [...]
--- OUTSIDE RECORDS SUMMARY | ~2018-07-13 | XMS | Clinical Summary ---
Demographics + + + | Address | [address] | | | [place] [address] | + + + | Home Phone | | + + + | Preferred Language | Unknown | + + + | Marital Status | | + + + | Sikh Affiliation | Unknown | + + + | Race | Unknown | + + + | Ethnic Group | Unknown | + + + Author + + + | Author | [facility] | | | and [place] | + + + | Organization | [facility] | | | and [place] | + + + | Address | Unknown | + + + | Phone | Unavailable | + + + Support + + + + + | Name | Relationship | Address | Phone | + + + + + | Elizabeth [place] | ECON | [address] | | | | | [place] | | | | | [address] | | + + + + + Care Team Providers + +------+ + | Care Cylinder Grinder Name | Role | Phone | + +------+ + | Zeyad May MD | PP | | + +------+ + Allergies + + + + + + | Active Allergy | Reactions | Severity | Noted | Comments | | | | | Date | | + + + + + + | Codeine | | | 07/04/19 | | | | | | 17 | | + + + + + + | Ibuprofen | Palpitations | Low | 06/30/19 | Only with Large | | | | | 12 | dose amount | | | | | | reactions were | | | | | | irregular heart beat | | | | | | | + + + + + + | Molindone Hcl | Palpitations | Low | 06/30/19 | irregular heart | | | | | 12 | beat | + + + + + + | Naproxen | Rash | High | 10/16/19 | | | | | | 12 | | + + + + + + Medications + + + +---------+------+------+-------+ | Medication | Sig | Dispensed | Refills | Star | End | Statu | | | | | | t | Date | s | | | | | | Date | | | + + + +---------+------+------+-------+ | ibuprofen (ADVIL, | Take 200 mg by mouth | | 0 | | | Activ | | MOTRIN) 200 mg | as needed for Pain. | | | | | e | | tablet | | | | | | | + + + +---------+------+------+-------+ Active Problems + + + | Problem | Noted Date | + + + | Acute low back pain | 10/05/2017 | + + + | Bradycardia | 10/05/2017 | + + + + + | Overview: Last Assessment & Plan: Three events of dizzy | | spells sudden onset in July 2014Last event while driving was | | longest 10minNo symptoms since thenH/o OSAHolter monitoring - no | | significant arrhythmias- but AVG HR is only 50 with highest HR of | | 77He has low baseline heart rate for many years always in 50sReg | | EST to evaluate stopped test 6:58sec for fatigue- he felt | | inclination was difficult and flet he could have tolerated higher | | level of exercise if inclination is lowered a bit- reached only | | 68% of target HR 102.2D echo normal LV functionCarotid dopplers- | | no significant diseaseDiscussed diet, exercise, lifestyle | | changes, fall precautions.Discussed with patient about normal HR [...] re-evaluate after reg est. | + + + + + | Inguinal hernia | 06/02/2016 | + + + | Dizziness | 08/17/2014 | + + + + + | Overview: Last Assessment & Plan: Three events of dizzy | | spells sudden onset in last 5 weeksLast event while driving was | | longest 10minH/o OSAWill do holter monitoring to evaluate for any | | arrhythmiasHe has low baseline heart rate for many years always | | in 50sWill do Reg EST to evaluate for chronotrophic response to | | exercise, screen for CAD2D echo to evaluate LV funciton, WMA, | | valvesCarotid dopplersF/u after tests.Discussed diet, exercise, | | lifestyle changes, fall precautions. | |Carotid dopplers | |F/u after tests. | |Discussed diet, exercise, lifestyle changes, fall precautions. | + + + + + | S/P lumbar microdiscectomy | 01/29/2012 | + + + | Herniated lumbar intervertebral disc | 11/12/2011 | + + + | Lumbar radiculopathy | 11/12/2011 | + + + | Foot drop, right | 11/12/2011 | + + + | Degeneration of lumbar intervertebral disc | 10/09/2011 | + + + | Low back pain | 10/09/2011 | + + + | Shoulder pain | 04/29/2011 | + + + | Neck pain | | + + + | NELY (obstructive sleep apnea) | | + + + Family History + + +------+ + | Medical History | Relation | Name | Comments | + + +------+ + | Asthma | Brother | | | + + +------+ + | Diabetes | Brother | | | + + +------+ + | Obesity | Brother | | | + + +------+ + | No known problems | Daughter | | | + + +------+ + | Cancer | Father | | | + + +------+ + | Macular degen | Father | | | + + +------+ + | Migraines | Father | | | + + +------+ + | PTSD | Father | | WWII | + + +------+ + | Arthritis | Mother | | | + + +------+ + | Diabetes | Mother | | | + + +------+ + | Heart failure | Mother | | | + + +------+ + | Hypertension | Mother | | | + + +------+ + | Low back pain | Mother | | | + + +------+ + | Vision loss | Mother | | Vision problems | + + +------+ + | Colon cancer | Other | | Aunt | + + +------+ + | Colon polyps | Other | | | + + +------+ + | Alcohol abuse | Sister | | | + + +------+ + | No known problems | Son | | | + + +------+ + + +------+ + + | Relation | Name | Status | Comments | + +------+ + + | Brother | | Alive | Half brother | + +------+ + + | Daughter | | Alive | | + +------+ + + | Father | | | | | | | (Age | | | | | 103) | | + +------+ + + | Mother | | | | | | | (Age | | | | | 96) | | + +------+ + + | Other | | | | + +------+ + + | Sister | | Alive | | + +------+ + + | Sister | | Alive | | + +------+ + + | Son | | Alive | | + +------+ + + Social History + +-------+ +--------+------+ | Tobacco Use | Types | Packs/Day | Years | Date | | | | | Used | | + +-------+ +--------+------+ | Former Smoker | | | | | + +-------+ +--------+------+ + +---+---+---+ | Smokeless Tobacco: | | | | | Never Used | | | | + +---+---+---+ + + +---------+ + | Alcohol Use | Drinks/We | oz/Week | Comments | | | ek | | | + + +---------+ + | Yes | | | Wine daily | + + +---------+ + + + [...] + + + | Blood Pressure | 123/64 | 12/28/2017 1345 PST | + + + + | Pulse | 42 | 12/28/2017 1345 PST | + + + + | Temperature | - | - | + + + + | Respiratory Rate | 16 | 10/05/2017 1424 PDT | + + + + | Oxygen Saturation | 96% | 06/22/2017 1055 PDT | + + + + | Inhaled Oxygen | - | - | | Concentration | | | + + + + | Weight | 69.4 kg (153 lb) | 12/28/2017 1345 PST | + + + + | Height | 172.7 cm (5' 8") | 12/28/2017 1345 PST | + + + + | Body Mass Index | 23.26 | 12/28/2017 1345 PST | + + + + Plan of Treatment + + + + + | Health Maintenance | Due Date | Last Done | Comments | + + + + + | Vaccine: Zoster (2 | | 09/04/2006 | | | of 3) | 7 | | | + + + + + | Adult Annual | | | | | Wellness Visit | 5 | | | + + + + + | Vaccine: | | 12/01/2014 | | | Pneumococcal 65+ | 6 | | | | Low/Medium Risk (2 | | | | | of 2 - PPSV23) | | | | + + + + + | Vaccine: | | 12/17/2015, 06/27/2011, | | | Dtap/Tdap/Td (3 - | 6 | 06/04/2009 | | | Td) | | | | + + + + + | Vaccine: Influenza | Completed | 11/11/2017, 11/04/2016, | | | | | 12/17/2015, Additional history | | | | | exists | | + + + + + Results Not on filefrom Last 3 Months Insurance + +--------+ +--------+-------+---------+--------+ | Payer | Benefi | Subscriber | Effect | Phone | Address | Type | | | t Plan | ID | mariah | | | | | | / | | Dates | | | | | | Group | | | | | | + +--------+ +--------+-------+---------+--------+ | [employer] | [employer] | [id number] | 02/09/19 | | | Medica | | | HEALTH | | 12-Pre | | | re | | | MDCR | | sent | | | | + +--------+ +--------+-------+---------+--------+ + +--------+ +--------+ + + | Guarantor Name | Accoun | Relation to | Date | Phone | Billing Address | | | t Type | Patient | of | | | | | | | | | | + +--------+ +--------+ + + | Kevon Welch | Person | Self [birth year] | [address] | | | al/Fam | | 1941 | [phone] | [place] [address] | | | lyla | | | 7 (Home) | | + +--------+ +--------+ + + Advance Directives Patient has advance care planning documents on file. For more information, please contact:[facility] and [facility] [place] [address]
--- OUTSIDE RECORDS SUMMARY | ~2018-07-13 | XMS | Encounter Summary ---
Demographics + + + | Address | [address] | | | [place] [address] | + + + | Home Phone | | + + + | Preferred Language | Unknown | + + + | Marital Status | | + + + | Christian Affiliation | NON | + + + | Race | White | + + + | Ethnic Group | Not or | + + + Author + + + | Author | [facility] | + + + | Organization | [facility] | + + + | Address | Unknown | + + + | Phone | Unavailable | + + + Support + + + + + | Name | Relationship | Address | Phone | + + + + + | Elizabeth Welch | ECON | [address] | | | | | [place] | | | | | [address] | | + + + + + Care Team Providers + +------+ + | Care Piping Drafter Name | Role | Phone | + [...] | | | | | Procedures | [facility] | Mailcode: | | | | | PHYSICAL | Rd | [facility] | | | | | THERAPY | [place], [place] | for Health | | | | | REFERRAL | [address] | and Healing, | | | | | | | 1st floor | | | | | | | [place], [place] | | | | | | | [address] | | | | | | | Phone: | | | | | | | [phone] | | | | | | | Fax: | | | | | | | [phone] | +--------+--------+ + + + + Encounter Details +--------+---------+ + + + | Date | Type | Department | Care Team | Description | +--------+---------+ + + + | 06/23/ | Office | [place] [facility] | Rupesh, | Shoulder pain | | 2013 | Visit | Therapy Services at | Alise, PT [address] | (Primary Dx) | | | | [facility] | [address] | | | | | [address] | [place], [place] | | | | | Mailcode: CH3P | [address] | | | | | [facility] | | | | | | and Ned, 1st | | | | | | floor [place], [place] | | | | | | [address] | | | | | | [phone] | | | +--------+---------+ + + + [...] [place] PT - 06/23/2013 8:58 AM PDT [id number] KEVON WELCH Date of : 1940 Start of care: 05/19/2013 Date of onset: 03/21/2013 Referring/Attending Practitioner: Misael Myers Primary/Referral Diagnosis/ICD-9: Shoulder pain (primary encounter diagnosis) Insurance: Payor: [employer] MEDICARE Plan: [employer] MEDICARE Product Type: P PO Service period from: 05/19/2013 to - Number visits used/authorized: 2/- [facility] PHYSICAL THERAPY TREATMENT - ORTHO [...] home exercise program as pt lives in [facility] for posterior do minant shoulder strength Frequency/Duration: Follow up prn due to pt living in [facility] [place] and traveling to [facility] for 4 weeks Treatment began: 899 Treatment ended: 944 This note is to serve as the discharge summary if Kevon fails to attend further Physical Th erapy appointments or contact the therapist regarding any change in their status. Alise [place], Pt [facility] REHABILITATION SERVICES AND HAND THERAPY [address] Mailcode: [address] [place] [address] documented in this encounter Plan of Treatment Not on filedocumented as of this encounter Procedures + +--------+ + + + | Procedure Name | Priori | Date/Time | Associated Diagnosis | Comments | | | ty | | | | + +--------+ + + + | ME MANUAL THER | Routin | 06/23/2013 | Shoulder pain | | | TECH,1+REGIONS,EA 15 | e | 10:22 AM | | | | MIN | | PDT | | | + +--------+ + + + | ME THERAPEUTIC | Routin | 06/23/2013 | Shoulder [...]
--- OUTSIDE RECORDS SUMMARY | ~2018-07-13 | XMS | Encounter Summary ---
Demographics + + + | Address | [address] | | | [place] [address] | + + + | Home Phone [...] [place] | | | | | [address] | | + + + + + Care Team Providers + +------+ + | Care Brick Carrier Name | Role | Phone | + [...] | | shoulder | Provider Per | [address] | | | | | pain | Patient NO | [address] | | | | | | REFERRING | Dejan Onofre | | | | | | PROVIDER PER | [place] | | | | | | [place] | [address] | | | | | | | Phone: | | | | | | | [phone] | | | | | | | Fax: | | | | | | | [phone] | +--------+--------+ + + + + Encounter Details +--------+---------+ + + + | Date | Type | Department | Care Team | Description | +--------+---------+ + + + | 02/13/ | Office | Orthopaedics at | Misael Myers MD | Shoulder pain; | | 2011 | Visit | [facility] [address] | [address] [facility] [facility] | Rotator cuff | | | | [place] Mailcode: CH12A | [address] | tendinitis; | | | | Center for [facility] | [facility] [place] | Disorders of bursae | | | | and Healing, | [address] | and tendons in | | | | Floor [facility] [place] | [phone] | shoulder region, | | | | [address] | | unspecified | | | | [phone] | | | +--------+---------+ + + + [...] Speed's biceps test was ne gative. and [place]'s test was positive. The patient had normal [...]
--- OUTSIDE RECORDS SUMMARY | ~2018-07-13 | XMS | Encounter Summary ---
Demographics + + + | Address | [address] | | | [place] [address] | + + + | Home Phone | | + + + | Preferred Language | Unknown | + + + | Marital Status | | + + + | Rastafarian Affiliation | NON | + + + [...] [place] | | | | | [address] | | + + + + + Care Team Providers + +------+ + | Care Low Pressure Boiler Tender Name | Role | Phone | [...] Therapy | Shoulder | MD Gordy | [address] | | | | | pain | [address] | [address] | | | | | Procedures | Celetsine Morales | Mailcode: | | | | | PHYSICAL | Rd | [facility] | | | | | THERAPY | [place], [place] | for Health | | | | | REFERRAL | [address] | and Healing, | | | | | | | 1st floor | | | | | | | [place], [place] | | | | | | | [address] | | | | | | | Phone: | | | | | | | [phone] | | | | | | | Fax: | | | | | | | [phone] | +--------+--------+ + + + + Reason [...] | | | | | | Dejan [place], | | | | | | | [place] | | | | | | | [address] | | | | | | | Phone: | | | | | | | [phone] | | | | | | | Fax: | | | | | | | [phone] | +--------+--------+ + + + + Encounter Details +--------+---------+ + + + | Date | Type | Department | Care Team | Description | +--------+---------+ + + + | 05/19/ | Office | Orthopaedics at | Misael Myers MD | Shoulder pain | | 2013 | Visit | [facility] [address] | [address] | (Primary Dx) | | | | Ave Mailcode: CH12A | [address] | | | | | [facility] | [place], [place] | | | | | and | [address] | | | | | Floor [place], [place] | [phone] | | | | | [address] | | | | | | [phone] | | | +--------+---------+ + + + [...]
--- OUTSIDE RECORDS SUMMARY | ~2018-07-13 | XMS | Encounter Summary ---
Demographics + + + | Address | [address] | | | [place] [address] | + + + | Home Phone [...] [place] | | | | | [address] | | + + + + + Care Team Providers + +------+ + | Care Banking Officer Name | Role | Phone | + [...] | | | | | Procedures | [address] | Mailcode: | | | | | PHYSICAL | Rd | [facility] | | | | | THERAPY | [facility] [place] | for Health | | | | | REFERRAL | [address] | and Healing, | | | | | | Phone: | 1st floor | | | | | | [phone] | [place], [place] | | | | | | Fax: | [address] | | | | | | [phone] | Phone: | | | | | | | [phone] | | | | | | | Fax: | | | | | | | [phone] | +--------+--------+ + + + + Encounter [...] | | [facility] | [address] | | | | | [address] | [facility] [place] | | | | | Mailcode: CH3P | [address] | | | | | [facility] | | | | | | and Healing, 1st | | | | | | floor [place], [place] | | | | | | [address] | | | | | | [phone] | | | +--------+---------+ + + + [...] might be different fr om the original. [id number] KEVON WELCH Date of : 1940 Start of care: 07/24/11 Date of onset:07/22/11 Referring/Attending Practitioner: Misael Myers MD . Primary/Referral Diagnosis/ICD-9: Encounter Diagnoses Name Primary? Shoulder pain Yes Insurance: Payor: [employer] MEDICARE Plan: ODS MEDICARE Product Type: PPO Service period from: 08/24/11-11/22/11 Number visits used/authorized: 8 [facility] PH[facility]ICAL [facility]: Post-op SHOULDER [...] given: Sidelying EXTERNAL ROTATION With no weight [id number] Standing B EXTERNAL ROTATION With yellow Tband 1x12 (increase up to 3 sets)-verbal TV watching stretch supine with towel rolls supporting weight of elbow x 5 min -reviewed t owel placement and performed for 5 min Standing Ext with yellow Tband [id number] INTERNAL ROTATION Behind the back stretch with [...] as 24 hours in advance by calling [phone]. Our office is open 7am-6pm and there is a [employer] ssage line 24 hours a day. Any [...] their status. LENA RAIN PT [facility] AND HAND THERAPY [address] Mailcode: [address] [facility], [address] [place] [address] documented in this e ncounter Plan of Treatment Not on filedocumented as of this encounter Procedures + +--------+ + + + | Procedure Name | Priori | Date/Time | Associated Diagnosis | Comments | | | ty | | | | + +--------+ + + + | KS MANUAL THER | Routin | 11/13/2011 | Shoulder pain | | | TECH,1+REGIONS,EA 15 | e | 4:58 PM | | | | MIN | | PDT | | | + +--------+ + + + | KS THERAPEUTIC | Routin | 11/13/2011 | Shoulder [...]
--- OUTSIDE RECORDS SUMMARY | ~2018-07-13 | XMS | Encounter Summary ---
Demographics + + + | Address | [address] | | | [place] [address] | + + + | Home Phone [...] [place] | | | | | [address] | | + + + + + Care Team Providers + +------+ + | Care Manager Stone Name | Role | Phone | + [...] + + | 07/21/ | Surgery | [facility] INTRA OP | Misael Myers MD | ARTHROSCOPIC | | 2011 | | [place] [facility] | [address] | SUBACROMIAL | | | | and Healing Surgery | [facility] | DECOMPRESSION; | | | | Center Admitting | [place], [place] | DISTAL CLAVICLE | | | | Desk Located on the | [address] | RESECTION AND | | | | 4th floor [address] | [phone] | POSSIBLE BICEPS | | | | [address], | | [place] | | | | [place] [address] | | | +--------+---------+ + + + [...]
--- OUTSIDE RECORDS SUMMARY | ~2018-07-13 | XMS | Encounter Summary ---
Demographics + + + | Address | [address] | | | [place] [address] | + + + | Home Phone [...] [place] | | | | | [address] | | + + + + + Care Team Providers + +------+ + | Care Map Colorer Name | Role | Phone | + [...] PHYSICAL | [facility] [place] | [facility] | | | | | THERAPY | [address] | for Health | | | | | REFERRAL | Phone: | and Healing, | | | | | | [phone] | 1st floor | | | | | | Fax: | [place], [place] | | | | | | [phone] | [address] | | | | | | | Phone: | | | | | | | [phone] | | | | | | | Fax: | | | | | | | [phone] | +--------+--------+ + + + + Encounter Details +--------+---------+ + + + | Date | Type | Department | Care Team | Description | +--------+---------+ + + + | 08/03/ | Office | [facility] Physical | Lena Rain, | Shoulder pain | | 2011 | Visit | Therapy Services at | PT [address] | (Primary Dx) | | | | [facility] | [address] | | | | | [address] | [place], [place] | | | | | Mailcode: CH3P | [address] | | | | | [facility] | | | | | | and Healing, 1st | | | | | | floor [facility] [place] | | | | | | [address] | | | | | | [phone] | | | +--------+---------+ + + + [...] might be different fr om the original. [id number] KEVON WELCH Date of : 1940 Start of care: 07/24/11 Date of onset:07/22/11 Referring/Attending Practitioner: Misael Myers MD . Primary/Referral Diagnosis/ICD-9: Encounter Diagnoses Name Primary? Shoulder pain Yes Insurance: Payor: ODS MEDICARE Plan: ODS MEDICARE Product Type: PPO Service period from: 07/24/11-08/23/11 Number visits used/authorized: 2 [facility] PHYSICAL THER[facility]Y: Post-op SHOULDER POST OP DAY [...] weeks Treatment began: 1345 Treatment ended: 1420; 1376-1742 for game ready Reviewed cancel/no show policy with patient. Pt voiced understanding. "At times we understand you must cancel. We request that all cancellations [facility] at [facility] 24 hours in advance by calling [phone]. Our office is open 7am-6pm and there is a [employer] line 24 hours a day. Any appointment [...] [facility]ERAPY [address] Mailcode: [address] [facility], [address] [place] [address] documented in this e ncounter Plan of Treatment Not on filedocumented as of this encounter Procedures + +--------+ + + + | Procedure Name | Priori | Date/Time | Associated Diagnosis | Comments | | | ty | | | | + +--------+ + + + | PA MANUAL THER | Routin | 08/05/2011 | Shoulder pain | | | TECH,1+REGIONS,EA 15 | e | 4:04 PM | | | | MIN | | PDT | | | + +--------+ + + + | PA THERAPEUTIC | Routin | 08/05/2011 | Shoulder [...]
--- OUTSIDE RECORDS SUMMARY | ~2018-07-13 | XMS | Clinical Summary ---
Demographics + + + | Address | [address] | | | [place] [address] | + + + | Home Phone | | + + + | Preferred Language | Unknown | + + + | Marital Status | | + + + | Sabianist Affiliation | Unknown | + + + | Race | Unknown | + + + | Ethnic Group | Unknown | + + + Author + + + | Author | [facility] | + + + | Organization | [facility] | + + + | Address | [...] Team Providers + +------+ + | Care Food Critic Name | Role | Phone | + [...] | MA - GENERIC | MA-GEN | [id number] | Medica | | | | | [...] | | al/Fam | | 1941 | [phone] | [place] | | | lyla | | | [birth year]44 | [address] | + +--------+ +--------+ + +
--- OUTSIDE RECORDS SUMMARY | ~2018-07-13 | XMS | Encounter Summary ---
Demographics + + + | Address | [address] | | | [place] [address] | + + + | Home Phone [...] [place] | | | | | [address] | | + + + + + Care Team Providers + +------+ + | Care Corn Cooker Name | Role | Phone | + +------+ + | Doyle Johnson MD | PCP | | + +------+ + Encounter Details +--------+ + + + + | Date | Type | Department | Care Team | Description | +--------+ + + + + | 05/19/ | Hospital | Radiology/Imaging | | | | 2013 | Encounter | Lab at [facility] [address] | | | | | | [address] Mailcode: | | | | | | [facility] | | | | | Health and Healing, | | | | | | [address] [place] [address], | | | | | | [place] [address] | | | | | | [phone] | | | +--------+ + + + [...] | | + +---------+ + + | [facility] DEPARTMENT OF | | | | | RADIOLOGY | | | | + +---------+ + + documented in this encounter Visit Diagnoses + + | Diagnosis | + + | Shoulder pain Pain in joint, shoulder region | + + documented in this encounter"
--- OUTSIDE RECORDS SUMMARY | ~2018-07-13 | XMS | Encounter Summary ---
Demographics + + + | Address | [address] | | | [place] [address] | + + + | Home Phone [...] [place] | | | | | [address] | | + + + + + Care Team Providers + +------+ + | Care Ranch Hand Supervisor Name | Role | Phone | [...] | | | | | PHYSICAL | [place], [place] | [address] | | | | | THERAPY | [address] | for Health | | | | | REFERRAL | Phone: | and Healing, | | | | | | [phone] | 1st floor | | | | | | Fax: | [place], [place] | | | | | | [phone] | [address] | | | | | | | Phone: | | | | | | | [phone] | | | | | | | Fax: | | | | | | | [phone] | +--------+--------+ + + + + Encounter [...] Dx) | | | | [facility] | [address]en | | | | | [address] | [place], [place] | | | | | Mailcode: CH3 | [address] | | | | | [facility] | | | | | | and Ned, 1st | | | | | | floor [place], [place] | | | | | | [address] | | | | | | [phone] | | | +--------+---------+ + + + [...] might be different fr om the original. [id number] KEVON WELCH Date of : 1940 Start of care: 06/30/2011 Date of onset:12/24/10 Referring/Attending Practitioner: Misael Myers MD . Primary/Referral Diagnosis/ICD-9: Encounter Diagnoses Name Primary? Shoulder pain Yes Insurance: Payor: ODS MEDICARE Plan: ODS MEDICARE Product Type: PPO Service period from: 06/30/2011 to: 09/28/11 Number visits used/authorized: 4 [facility] PHYSICAL THERAPY: Pre-op SHOULDER Subjective: Pt [...] t 24 hours in advance by calling [phone]. Our office is open 7am-6pm and there is a [employer]square ssage line 24 hours a day. Any [...] change in their status. PHILLY RAIN PT [facility] AND HAND THERAPY [address] Mailcode: [address] And [facility], 1st Floor [facility] [address] documented in this e ncounter Plan of Treatment Not on filedocumented as of this encounter Procedures + +--------+ + + + | Procedure Name | Priori | Date/Time | Associated Diagnosis | Comments | | | ty | | | | + +--------+ + + + | PA MANUAL THER | Routin | 06/30/2011 | Shoulder pain | | | TECH,1+REGIONS,EA 15 | e | 4:12 PM | | | | MIN | | PDT | | | + +--------+ + + + | PA THERAPEUTIC | Routin | 06/30/2011 | Shoulder [...]
--- OUTSIDE RECORDS SUMMARY | ~2018-07-13 | XMS | Encounter Summary ---
Demographics + + + | Address | [address] | | | [place] [address] | + + + | Home Phone [...] + + | Author | [facility] | + + + | Organization | [facility] | + + + | Address | Unknown | + + + | Phone | Unavailable | + + + Support + + + + + | Name | Relationship | Address | Phone | + + + + + | Elizabeth Welch | ECON | [address] | | | | | [place] | | | | | [address] | | + + + + + Care Team Providers + +------+ + | Care Wilton Weaver Name | Role | Phone | + [...] | | shoulder | Provider Per | [address] | | | | | pain | Patient NO | [address]ales | | | | | | REFERRING | Dejan Onofre | | | | | | PROVIDER PER | [place] | | | | | | PT | [address] | | | | | | | Phone: | | | | | | | [phone] | | | | | | | Fax: | | | | | | | [phone] | +--------+--------+ + + + + Encounter Details +--------+---------+ + + + | Date | Type | Department | Care Team | Description | +--------+---------+ + + + | 06/29/ | Office | Orthopaedics at | Katty Chairez PA | Other specified | | 2011 | Visit | [facility] [address] | [address] | pre-operative | | | | Ave Mailcode: CH12A | [place], [place] | examination (Primary | | | | [facility] | [address] | Dx) | | | | and Healing, 12th | [phone] | | | | | Floor [place], [place] | | | | | | [address] | | | | | | [phone] | | | +--------+---------+ + + + [...] take place on the hill at the [facility]: Surgeries scheduled in the [facility] (4 North): registration is located on the 4th floor of [facility] (Day Surgery). Surgeries scheduled in the [facility]: registration is located on the 9th floor. Surgeries scheduled in [facility]: registration is located on the 6th floor. Surgeries scheduled in the [facility]: registration is located i n the [facility] on the first floor. For surgeries scheduled to take place at the [facility]: registration is l [...] If you use specialized medical equipment at [facility], please check with your provider before [...]
--- OUTSIDE RECORDS SUMMARY | ~2018-07-13 | XMS | Encounter Summary ---
Demographics + + + | Address | [address] | | | [place] [address] | + + + | Home Phone [...] [place] | | | | | [address] | | + + + + + Care Team Providers + +------+ + | Care Resort Keeper Name | Role | Phone | + [...] | | shoulder | Provider Per | [address] | | | | | pain | Patient NO | [address] | | | | | | REFERRING | Rd [place], | | | | | | PROVIDER PER | [place] | | | | | | PT | [address] | | | | | | | Phone: | | | | | | | [phone] | | | | | | | Fax: | | | | | | | [phone] | +--------+--------+ + + + + Encounter Details +--------+---------+ + + + | Date | Type | Department | Care Team | Description | +--------+---------+ + + + | 04/27/ | Office | Orthopaedics at | Misael Myers MD | Shoulder pain | | 2011 | Visit | [facility] [address] | [address] | (Primary Dx); | | | | Ave Mailcode: CH12A | [address] | Rotator cuff | | | | [facility] | [place], [place] | tendinitis; | | | | and | [address] | Osteoarthrosis, | | | | Floor [place], [place] | [phone] | unspecified whether | | | | [address] | | generalized or | | | | [phone] | | localized, shoulder | | | [...] S: Pt undergoing PT at clinic in [place] 200 miles from here; has been seen [...] RX as appropriate LENA RAIN PT [facility]IL[facility]ATION [address] Mailcode: Ch12a [facility] And [facility], [address] [place] [address] Misael Vega MD - 04/28/2011 11:09 [...]
--- OUTSIDE RECORDS SUMMARY | ~2018-07-13 | XMS | Encounter Summary ---
Demographics + + + | Address | [address] | | | [place] [address] | + + + | Home Phone [...] [place] | | | | | [address] | | + + + + + Care Team Providers + +------+ + | Care Practice Manager Name | Role | Phone | [...] | | | | | THERAPY | [facility] [place] | for Health | | | | | REFERRAL | [address] | and Healing, | | | | | | Phone: | 1st floor | | | | | | [phone] | [place], [place] | | | | | | Fax: | [address] | | | | | | [phone] | Phone: | | | | | | | [phone] | | | | | | | Fax: | | | | | | | [phone] | +--------+--------+ + + + + Encounter Details +--------+---------+ + + + | Date | Type | Department | Care Team | Description | +--------+---------+ + + + | 10/15/ | Office | [facility] Physical | Philly Rain, | Low back pain; | | 2011 | Visit | Therapy Services at | PT [address] | Lumbar | | | | [facility] | [address] | radiculopathy; | | | | [address] | [place], [place] | Herniated lumbar | | | | Mailcode: CH3P | [address] | intervertebral disc; | | | | [place] [facility] | | Degeneration of | | | | and Healing, 1st | | lumbar | | | | floor [place], [place] | | intervertebral disc | | | | [address] | | | | | | [phone] | | | +--------+---------+ + + + [...] might be different fr om the original. [id number] KEVON WELCH Date of : 1940 Start of care: 10/09/2011 Date of onset: 09/10/11 Referring/Attending Practitioner: Alcira Bocanegra PA . Primary/Referral Diagnosis/ICD-9: 722.10H Herniated lumbar intervertebral disc Insurance: Payor: ODS MEDICARE Plan: ODS MEDICARE Product Type: PPO Service period from: 10/09/2011 to: 11/08/11 Number visits used/authorized: 3/ Neurologist: Dr. Rafal Ben[facility] [address] [place] [address] (Office) [facility] PHYSICAL THERAPY SUBJECTIVE Age: 71 y.o. [...] month ago. 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 PHILLY RAIN PT [facility] AND HAND THERAPY [address] Mailcode: [address] Health And [facility], [address] [place] [address] documented in this e ncounter Plan of Treatment Not on filedocumented as of this encounter Procedures + +--------+ + + + | Procedure Name | Priori | Date/Time | Associated Diagnosis | Comments | | | ty | | | | + +--------+ + + + | MI THERAPEUTIC | Routin | 10/16/2011 | Low [...] + | MI THERAPEUTIC | Routin | 10/16/2011 | Low [...]
--- OUTSIDE RECORDS SUMMARY | ~2018-07-13 | XMS | Encounter Summary ---
Demographics + + + | Address | [address] | | | [place] [address] | + + + | Home Phone [...] [place] | | | | | [address] | | + + + + + Care Team Providers + +------+ + | Care Learning And Development Associate Name | Role | Phone | + [...] | | | | | THERAPY | [place], [place] | for Health | | | | | REFERRAL | [address] | and Healing, | | | | | | | 1st floor | | | | | | | [place], [place] | | | | | | | [address] | | | | | | | Phone: | | | | | | | [phone] | | | | | | | Fax: | | | | | | | [phone] | +--------+--------+ + + + + Encounter [...] (Primary Dx) | | | | [facility] | [address] | | | | | [address] | [place], [place] | | | | | Mailcode: [facility] | [address] | | | | | [facility] | | | | | | and Healing, 1st | | | | | | floor [place], [place] | | | | | | [address] | | | | | | [phone] | | | +--------+---------+ + + + [...] [place] PT - 10/19/2013 10:15 AM PDT [id number] KEVON WELCH Date of : 1940 Start of care: 05/19/2013 Date of onset: 03/21/2013 Referring/Attending Practitioner: Misael Myers Primary/Referral Diagnosis/ICD-9: Shoulder pain, right (primary encounter diagnosis) Insurance: Payor: [employer] MEDICARE Plan: [employer] MEDIC[employer] Product Type: P PO Service period from: 05/19/2013 to 01/18/2014 Number visits used/authorized: 09/20 [facility] PHYSICAL THERAPY TREATMENT - ORTHO SUBJECTIVE: [...] Right 09/22 Right/Left 10/18/2013 Flexion 141 155 [id number]* [id number] Pre 125* Post 140 145 145/150 Abduction 146 150 [id number]* [id number] Pre 95* Post 132 144 140/145 ER [...] as pt lives in [facility] for posterior do minant shoulder strength Frequency/Duration: Follow up prn due to pt living in [facility] Treatment began: 1015 am Treatment ended: 1100 am This note is to serve as the discharge summary if Kevon fails to attend further Physical Th erapy appointments or contact the therapist regarding any change in their status. Alise [place], PT [facility] RE[facility]IL[facility] SERVICES AND HAND THERAPY [address] Mailcode: [place] [address] documented in this encounter Plan of Treatment Not on filedocumented as of this encounter Procedures + +--------+ + + + | Procedure Name | Priori | Date/Time | Associated Diagnosis | Comments | | | ty | | | | + +--------+ + + + | [place] MANUAL THER | Routin | 10/19/2013 | Shoulder pain, | | | TECH,1+REGIONS,EA 15 | e | 12:14 PM | right | | | MIN | | PDT | | | + +--------+ + + + | [place] THERAPEUTIC | Routin | 10/19/2013 | Shoulder [...]
--- OUTSIDE RECORDS SUMMARY | ~2018-07-13 | XMS | Encounter Summary ---
Demographics + + + | Address | [address] | | | [place] [address] | + + + | Home Phone [...] + + | Author | [facility] | + + + | Organization | [facility] | + + + | Address | Unknown | + + + | Phone | Unavailable | + + + Support + + + + + | Name | Relationship | Address | Phone | + + + + + | Elizabeth Welch | ECON | [address] | | | | | [place] | | | | | [address] | | + + + + + Care Team Providers + +------+ + | Care Chemical Sales Representative Name | Role | Phone | + [...] | | shoulder | Provider Per | [address] | | | | | pain | Patient NO | Celestine Morales | | | | | | REFERRING | [address] [place], | | | | | | PROVIDER PER | [place] | | | | | | PT | [address] | | | | | | | Phone: | | | | | | | [phone] | | | | | | | Fax: | | | | | | | [phone] | +--------+--------+ + + + + Encounter Details +--------+---------+ + + + | Date | Type | Department | Care Team | Description | +--------+---------+ + + + | 03/27/ | Office | Orthopaedics at | Misael Myers MD | Rotator cuff | | 2011 | Visit | [facility] [address] | [address] | tendinitis (Primary | | | | Ave Mailcode: CH12A | [address] | Dx) | | | | [place] for [facility] | [place], [place] | | | | | and [facility], | [address] | | | | | Floor [place], [place] | [phone] | | | | | [address] | | | | | | [phone] | | | +--------+---------+ + + + [...]
--- OUTSIDE RECORDS SUMMARY | ~2018-07-13 | XMS | Encounter Summary ---
Demographics + + + | Address | [address] | | | [place] [address] | + + + | Home Phone [...] [place] | | | | | [address] | | + + + + + Care Team Providers + +------+ + | Care Dog Or Animal Sitter Name | Role | Phone | + [...] | | | | THERAPY | [facility] [place] | for Health | | | | | REFERRAL | [address] | and Healing, | | | | | | Phone: | 1st floor | | | | | | [phone] | [facility] [place] | | | | | | Fax: | [address] | | | | | | [phone] | Phone: | | | | | | | [phone] | | | | | | | Fax: | | | | | | | [phone] | +--------+--------+ + + + + Encounter Details +--------+---------+ + + + | Date | Type | Department | Care Team | Description | +--------+---------+ + + + | 10/29/ | Office | [facility] | Lena Rain, | Herniated lumbar | | 2011 | Visit | Therapy Services at | PT [address] | intervertebral disc; | | | | [facility] | [address] | Degeneration of | | | | [address] | [place], [place] | lumbar | | | | Mailcode: CH3P | [address] | intervertebral disc; | | | | [facility] | | Low back pain; | | | | and Healing, 1st | | Lumbar radiculopathy | | | | floor [place], [place] | | | | | | [address] | | | | | | [phone] | | | +--------+---------+ + + + [...] might be different fr om the original. [id number] KEVON WELCH Date of : 1940 Start of care: 10/09/2011 Date of onset: 09/10/11 Referring/Attending Practitioner: Alcira Bocanegra PA . Primary/Referral Diagnosis/ICD-9: 722.10H Herniated lumbar intervertebral disc Insurance: Payor: ODS MEDICARE Plan: ODS MEDICARE Product Type: PPO Service period from: 10/09/2011 to: 11/08/11 Number visits used/authorized: 6/ Neurologist: Dr. Lyles [facility] [address] [place] [address] (Office) [facility] PHYSICAL THERAPY SUBJECTIVE Age: [...] month ago. 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 LENA RAIN PT [facility] REHABIL[facility]ATION SERVICES AND HAND THERAPY [address] Mailcode: [address], [address] [place] [address] documented in this e ncounter Plan of Treatment Not on filedocumented as of this encounter Procedures + +--------+ + + + | Procedure Name | Priori | Date/Time | Associated Diagnosis | Comments | | | ty | | | | + +--------+ + + + | AL THERAPEUTIC | Routin | 10/30/2011 | Herniated [...] | + +--------+ + + + | AL THERAPEUTIC | Routin | 10/30/2011 | Herniated [...]
--- OUTSIDE RECORDS SUMMARY | ~2018-07-13 | XMS | Encounter Summary ---
Demographics + + + | Address | [address] | | | [place] [address] | + + + | Home Phone [...] [place] | | | | | [address] | | + + + + + Care Team Providers + +------+ + | Care Office Messenger Name | Role | Phone | + [...] | | | | | REFERRAL | [address] | and Healing, | | | | | | Phone: | 1st floor | | | | | | [phone] | [place], [place] | | | | | | Fax: | [address] | | | | | | [phone] | Phone: | | | | | | | [phone] | | | | | | | Fax: | | | | | | | [phone] | +--------+--------+ + + + + Encounter [...] | | [facility] | [address] | radiculopathy; | | | | [address] | [place], [place] | Herniated lumbar | | | | Mailcode: CH3P | [address] | intervertebral disc; | | | | [place] for [facility] | | Degeneration of | | | | and Healing, 1st | | lumbar | | | | floor [place], [place] | | intervertebral disc | | | | [address] | | | | | | [phone] | | | +--------+---------+ + + + [...] might be different fr om the original. [id number] KEVON WELCH Date of : 1940 Start of care: 10/09/2011 Date of onset: 09/10/11 Referring/Attending Practitioner: Alcira Bocanegra PA . Primary/Referral Diagnosis/ICD-9: 722.10H Herniated lumbar intervertebral disc Insurance: Payor: ODS MEDICARE Plan: ODS MEDICARE Product Type: PPO Service period from: 10/09/2011 to: 11/08/11 Number visits used/authorized: 3/ Neurologist: Dr. Rafal Benites [facility] [address] [place] [address] (Office) [facility] PHYSICAL THERAPY SUBJECTIVE Age: 71 [...] ago. 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 PHILLY RAIN PT [facility] RE[facility]IL[facility]ATION [facility] AND HAND THERAPY [address] Mailcode: [address] [facility], [address] [place] [address] documented in this e ncounter Plan of Treatment Not on filedocumented as of this encounter Procedures + +--------+ + + + | Procedure Name | Priori | Date/Time | Associated Diagnosis | Comments | | | ty | | | | + +--------+ + + + | AL THERAPEUTIC | Routin | 10/16/2011 | Low [...] + | AL THERAPEUTIC | Routin | 10/16/2011 | Low [...]
--- OUTSIDE RECORDS SUMMARY | ~2018-07-13 | XMS | Encounter Summary ---
Demographics + + + | Address | [address] | | | [place] [address] | + + + | Home Phone | | + + + | Preferred Language | Unknown | + + + | Marital Status | | + + + | Jewish Affiliation | NON | + + + | Race | White | + + + | Ethnic Group | Not or | + + + Author + + + | Author | [facility] | + + + | Organization | [facility] | + + + | Address | Unknown | + + + | Phone | Unavailable | + + + Support + + + + + | Name | Relationship | Address | Phone | + + + + + | Elizabeth Welch | ECON | [address] | | | | | [place] | | | | | [address] | | + + + + + Care Team Providers + +------+ + | Care Cut Out Press Operator Name | Role | Phone | [...] + + | 07/21/ | Surgery | [facility] | Misael Myers MD | ARTHROSCOPIC | | 2011 | | [place] for [facility] | [address] | SUBACROMIAL | | | | and Healing Surgery | [facility] | DECOMPRESSION; | | | | Center Admitting | [place], [place] | DISTAL CLAVICLE | | | | Desk Located on the | [address] | RESECTION AND | | | | 4th floor [address] | [phone] | POSSIBLE BICEPS | | | | [place], | | [place] | | | | [place] [address] | | | +--------+---------+ + + + [...]
--- OUTSIDE RECORDS SUMMARY | ~2018-07-13 | XMS | Encounter Summary ---
Demographics + + + | Address | [address] | | | [place] [address] | + + + | Home Phone [...] [place] | | | | | [address] | | + + + + + Care Team Providers + +------+ + | Care White Goods Appliance Tech Name | Role | Phone | + [...] | | | | | PHYSICAL | [facility] [place] | [facility] | | | | | THERAPY | [address] | for Health | | | | | REFERRAL | Phone: | and Healing, | | | | | | [phone] | 1st floor | | | | | | Fax: | [place], [place] | | | | | | [phone] | [address] | | | | | | | Phone: | | | | | | | [phone] | | | | | | | Fax: | | | | | | | [phone] | +--------+--------+ + + + + Encounter [...] [facility] | [address] | | | | | [address] | [place], [place] | | | | | Mailcode: CH3P | [address] | | | | | [facility] | | | | | | and Healing, 1st | | | | | | floor [facility] [place] | | | | | | [address] | | | | | | [phone] | | | +--------+---------+ + + + [...] might be different fr om the original. [id number] KEVON WELCH Date of : 1940 Start [...] request that all cancellations be made at [facility] 24 hours in advance by calling [phone]. Our office is open 7am-6pm and there [...] change in their status. LENA RAIN PT [facility] REHABILITATION SERVICES AND HAND THERAPY [address] Mailcode: [address], 1st [facility] [address] documented in this e ncounter Plan of Treatment Not on filedocumented as of this encounter Procedures + +--------+ + + + | Procedure Name | Priori | Date/Time | Associated Diagnosis | Comments | | | ty | | | | + +--------+ + + + | MS MANUAL THER | Routin | 08/20/2011 | Shoulder pain | | | TECH,1+REGIONS,EA 15 | e | 1:04 PM | | | | MIN | | PDT | | | + +--------+ + + + | MS THERAPEUTIC | Routin | 08/20/2011 | Shoulder [...]
--- OUTSIDE RECORDS SUMMARY | ~2018-07-13 | XMS | Encounter Summary ---
Demographics + + + | Address | [address] | | | [place] [address] | + + + | Home Phone [...] [place] | | | | | [address] | | + + + + + Care Team Providers + +------+ + | Care Physical Therapy Manager Name | Role | Phone | + +------+ + | Doyle Johnson MD | PCP | Unavailable | + +------+ + Encounter Details +--------+ + + + + | Date | Type | Department | Care Team | Description | +--------+ + + + + | 06/29/ | Anesthesia | Preoperative | Lida Houser, | | | 2011 | Event | [facility] at | ANP [address] [facility] | | | | | [facility] 4th Floor [address] | | | | | [address] | [place], [place] | | | | | Code: [address] | [address] | | | | | for Health and | [phone] | | | | | Healing,4th Floor | | | | | | [place], [place] | | | | | | [address] | | | | | | [phone] | | | +--------+ + + + [...]
--- OUTSIDE RECORDS SUMMARY | ~2018-07-13 | XMS | Encounter Summary ---
Demographics + + + | Address | [address] | | | [place] [address] | + + + | Home Phone [...] [place] | | | | | [address] | | + + + + + Care Team Providers + +------+ + | Care Concreting Supervisor Name | Role | Phone | [...] | | | | | THERAPY | [address] | for Health | | | | | REFERRAL | Phone: | and Healing, | | | | | | [phone] | 1st floor | | | | | | Fax: | [place], [place] | | | | | | [phone] | [address] | | | | | | | Phone: | | | | | | | [phone] | | | | | | | Fax: | | | | | | | [phone] | +--------+--------+ + + + + Encounter [...] | [facility] | [address] | | | | | [address] | [place], [place] | | | | | Mailcode: CH3P | [address] | | | | | [facility] | | | | | | and Healing, 1st | | | | | | floor [facility] [place] | | | | | | [address] | | | | | | [phone] | | | +--------+---------+ + + + [...] might be different fr om the original. [id number] KEVON WELCH Date of : 1940 Start [...] change in their status. LENA RAIN, PT [facility] REHABILITATION SERVICES AND HAND THERAPY [address] Mailcode: [address] [facility], 1st Floor [facility] [address] documented in this e ncounter Plan of Treatment Not on filedocumented as of this encounter Procedures + +--------+ + + + | Procedure Name | Priori | Date/Time | Associated Diagnosis | Comments | | | ty | | | | + +--------+ + + + | AK THERAPEUTIC | Routin | 05/29/2011 | Shoulder pain | | | ACTIVITIES | e | 3:47 PM | | | | | | PDT | | | + +--------+ + + + | AK MANUAL THER | Routin | 05/29/2011 | Shoulder pain | | | TECH,1+REGIONS,EA 15 | e | 3:47 PM | | | | MIN | | PDT | | | + +--------+ + + + | AK THERAPEUTIC | Routin | 05/29/2011 | Shoulder [...]
--- OUTSIDE RECORDS SUMMARY | ~2018-07-13 | XMS | Encounter Summary ---
Demographics + + + | Address | [address] | | | [place] [address] | + + + | Home Phone [...] [place] | | | | | [address] | | + + + + + Care Team Providers + +------+ + | Care Optical Effects Line Up Person Name | Role | Phone | [...] | | | | | PHYSICAL | [facility] [place] | [facility] | | | | | THERAPY | [address] | for Health | | | | | REFERRAL | Phone: | and Healing, | | | | | | [phone] | 1st floor | | | | | | Fax: | [place], [place] | | | | | | [phone] | [address] | | | | | | | Phone: | | | | | | | [phone] | | | | | | | Fax: | | | | | | | [phone] | +--------+--------+ + + + + Encounter Details +--------+---------+ + + + | Date | Type | Department | Care Team | Description | +--------+---------+ + + + | 05/11/ | Office | [facility] | Philly Rain, | Shoulder pain | | 2011 | Visit | Therapy Services at | PT [address] | (Primary Dx) | | | | [facility] | [address] | | | | | [address] | [place], [place] | | | | | Mailcode: CH3P | [address] | | | | | [facility] | | | | | | and Healing, 1st | | | | | | floor [facility] [place] | | | | | | [address] | | | | | | [phone] | | | +--------+---------+ + + + [...] PDTFormatting of this note might be different [facility] the original. [id number] KEVON WELCH Date of : 1940 Start of care: 02/13/2011 Date of onset: 12/24/2010 Referring/Attending Practitioner: Misael Myers MD . Primary/Referral Diagnosis/ICD-9: Encounter Diagnoses Name Primary? 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 PHILLY RAIN, PT [facility] REHABILITATION SERVICES AND HAND THERAPY [address] Mailcode: [facility], [facility] [address] Philly Killian PT - 05/12/2011 9:14 AM PDT 04/28/11 PT Encounter Note: Kevon Welch 70 yrs, Male, 1940 PCP: DOYLE JOHNSON Ref: NO REFERRING PROVIDER PER PATIENT, Primary Ins.: ODS MEDI Pt seen briefly in [facility] by PT per Dr. Acevedo request: Not charged S: Pt undergoing PT at clinic in [place] 200 [place] from here; has been seen [...] modify RX as appropriate PHILLY RAIN PT [facility] [address] Mailcode: Ch[facility] [address] + NEERS. + Telles, + Hornblowers [...] + | CT THERAPEUTIC | Routin | 05/15/2011 | Shoulder [...]
--- OUTSIDE RECORDS SUMMARY | ~2018-07-13 | XMS | Encounter Summary ---
Demographics + + + | Address | [address] | | | [place] [address] | + + + | Home Phone | | + + + | Preferred Language | Unknown | + + + | Marital Status | | + + + | Anabaptist Affiliation | NON | + + + [...] [place] | | | | | [address] | | + + + + + Care Team Providers + +------+ + | Care Staff Mine Warfare Officer Name | Role | Phone | [...] | intervertebral disc | | | | [facility] | [facility] | (Primary Dx) | | | | [address] | Road [place], [place] | | | | | Mailcode: [facility] | [address] | | | | | [facility] | | | | | | and Healing, [facility] | | | | | | floor [place], [place] | | | | | | [address] | | | | | | [phone] | | | +--------+---------+ + + + [...] Dailey, PT - 10/10/2011 1:41 PM PDT [id number] KEVON WELCH Date of : 1940 Start of care: 10/09/2011 Date of onset: 09/10/11 Referring/Attending Practitioner: Alcira Bocanegra PA . Primary/Referral Diagnosis/ICD-9: 722.10H Herniated lumbar intervertebral disc Insurance: Payor: ODS MEDICARE Plan: ODS MEDICARE Product Type: PPO Service period from: 10/09/2011 to: 11/08/11 Number visits used/authorized: 1/ Neurologist: Dr. Rafal Benites [address] [address] (Office) [facility] PHYSICAL THERAPY SUBJECTIVE Age: 71 y.o. Sex: male Chief complaint: Today's report: 03/21. Walking. Foot drop. 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 No lying on stomach since 8 years o ld due to back pain History of Presenting Problems: Kevon Welch is a 71 y.o. male with c/o LBP that began about a month ago. 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
--- OUTSIDE RECORDS SUMMARY | ~2018-07-13 | XMS | Encounter Summary ---
Demographics + + + | Address | [address] | | | [place] [address] | + + + | Home Phone [...] [place] | | | | | [address] | | + + + + + Care Team Providers + +------+ + | Care Machine Tool Technology Instructor Name | Role | Phone | [...] Therapy | Shoulder | MD [place] | [address] | | | | | pain | [address] | [address] | | | | | Procedures | [address] | Mailcode: | | | | | PHYSICAL | Rd | [facility] | | | | | THERAPY | [place], [place] | for Health | | | | | REFERRAL | [address] | and Healing, | | | | | | | 1st floor | | | | | | | [place], [place] | | | | | | | [address] | | | | | | | Phone: | | | | | | | [phone] | | | | | | | Fax: | | | | | | | [phone] | +--------+--------+ + + + + Reason [...] | | | | | | [place], | | | | | | | [place] | | | | | | | [address] | | | | | | | Phone: | | | | | | | [phone] | | | | | | | Fax: | | | | | | | [phone] | +--------+--------+ + + + + Encounter Details +--------+---------+ + + + | Date | Type | Department | Care Team | Description | +--------+---------+ + + + | 05/19/ | Office | Orthopaedics at | Misael Myers MD | Shoulder pain | | 2013 | Visit | [facility] [address] | [address] | (Primary Dx) | | | | Ave Mailcode: [facility] | [address] | | | | | [place] for [facility] | [place], [place] | | | | | and | [address] | | | | | Floor [place], [place] | [phone] | | | | | [address] | | | | | | [phone] | | | +--------+---------+ + + + [...]
--- OUTSIDE RECORDS SUMMARY | ~2018-07-13 | XMS | Encounter Summary ---
Demographics + + + | Address | [address] | | | [place] [address] | + + + | Home Phone | | + + + | Preferred Language | Unknown | + + + | Marital Status | | + + + | Episcopalian Affiliation | NON | + + + [...] [place] | | | | | [address] | | + + + + + Care Team Providers + +------+ + | Care Division Supervisor Name | Role | Phone | [...] | | | 2011 | | [facility] [address] | [address] [facility] | | | | | [place] Mailcode: CH[facility]A | [address] | | | | | [place] for [facility] | [place], [place] | | | | | and | [address] | | | | | Floor [place], [place] | [phone] | | | | | [address] | | | | | | [phone] | | | +--------+ + + + [...]
--- OUTSIDE RECORDS SUMMARY | ~2018-07-13 | XMS | Encounter Summary ---
Demographics + + + | Address | [address] | | | [place] [address] | + + + | Home Phone [...] [place] | | | | | [address] | | + + + + + Care Team Providers + +------+ + | Care Systems Engineer Name | Role | Phone | [...] + + + + | 07/21/ | Anesthesia | [facility] | Viv Ritchie, | | | 2011 | Event | [facility] | X RAY SERVICE ENGINEER [address] | | | | | and Healing Surgery | [facility] | | | | | Center Admitting | [place], [place] | | | | | Desk Located on the | [address] | | | | | 4th floor [address] | [phone] | | | | | [address] [place], | | | | | | [place] [address] | | | +--------+ + + + + Anesthesia Record + + + + + | Procedure Name | Responsible | Anesthesia Start | Anesthesia Stop Time | | | Anesthesiologist | Time | | + + + + + | CRIS | Misael De Luna MD, DMD | 07/22/11 0702 | 07/22/11 1025 | | SUBACROMIAL | | | | | DECOMPRESSION (Left | | | | | Shoulder) | | | | + + + + + +----+---+ + + | Da | T | Event | Comment | | te | i | | | | | m | | | | | e | | | +----+---+ + + | 06 | 0 | An Start | | | /1 | 7 | | | | 2/ | 0 | | | | 20 | 2 | | | | 12 | | | | +----+---+ + + | | 0 | Start | | | | 7 | Catheter | | | | 0 | | | | | 2 | | | +----+---+ + + | | 0 | PNB Cath | | | | 7 | Stop | | | | 2 | | | | | 9 | | | +----+---+ + + | | 0 | Eq Check | Anesthesia machine checked Equipment verified | | | 7 | | | | | 4 | | | | | 3 | | | +----+---+ + + | | 0 | Pt. Check | Prior to anesthesia start, pt. Identified, examined, chart | | | 7 | | reviewed, PARQ held, anesthetic plan made or approved by | | | 4 | | attending anesthesiologist. NPO status confirmed as appropriate | | | 3 | | for procedure Preoperative evaluation: unchanged | +----+---+ + + | | 0 | An Start | | | | 7 | Data | | | | 4 | | | | | 7 | | | +----+---+ + + | | 0 | Std. Airway | | | | 7 | Mgt. | | | | 5 | | | | | 8 | | | +----+---+ + + | | 0 | Ready | | | | 8 | | | | | 0 | | | | | 4 | | | +----+---+ + + | | 0 | Abx | | | | 8 | Administere | | | | 0 | d | | | | 5 | | | +----+---+ + + | | 0 | Incision | | | | 8 | | | | | 1 | | | | | 7 | | | +----+---+ + + | | 0 | Quick Note | Ronnie Moe CRNA in for 15 min. break | | | 8 | | | | | 5 | | | | | 6 | | | +----+---+ + + | | 1 | Surgery end | | | | 0 | | | | | 0 | | | | | 8 | | | +----+---+ + + | | 1 | An Extubate | Neuromuscular function Intact. Pharynx suctioned. Patient obeys | | | 0 | | commands. Adequate pulmonary mechanics. | | | 1 | | | | | 8 | | | +----+---+ + + | | 1 | an stop | | | | 0 | data | | | | 1 | | | | | 9 | | | +----+---+ + + | | 1 | Anesthesia | | | | 0 | End | | | | 2 | | | | | 5 | | | +----+---+ + + +------+ | Meds | +------+ + + + | Name | Total | + + + | midazolam | 1 mg | + + + | fentaNYL | 175 mcg | + + + | ceFAZolin | 1,000 mg | + + + | lidocaine 2% | 60 mg | + + + | propofol | 220 mg | + + + | ePHEDrine | 5 mg | + + + | rocuronium | 30 mg | + + + | dexamethasone | 10 mg | + + + | ondansetron | 4 mg | + + + | ropivacaine 0.2% peripheral nerve | Cannot be | | block ([facility], Single, I-Flow pump) | calculated | + + + | LR | 1,200 mL | + + + + + | Name | + + | Insp Santos | + + | Et Santos | + + | EtN2O % | + + | Insp N2O % | + + | O2 Flow Rate (Total Liters) | + + | Air Flow rate (L/min) | + + + + | No blood administrations on file. | + + +--------+ + + + | Type | Details | Placement | Removal | +--------+ + + + | RETIRE | 07/22/11; 0648; 07/22/11; 1130; | 07/22/11 0648 by | 07/22/11 1130 by | | D - | No; 20; Right; Hand; Lidocaine; | Lubna Miller RN | Britta Etienne RN | | Periph | No; Positive | | | | eral | | | | | Line | | | | +--------+ + + + | RETIRE | 07/22/11; 0728; 11/27/16 | 07/22/11 0728 by | 11/27/16 1622 by | | D - | (Automatic cleanup per RA | Fili Rivera, | Discontinued After | | Periph | 3006--contact admin for | ,PhD | Discharge | | eral | questions.); 1622 (Automatic | | | | Nerve | cleanup per RA 3006--contact | | | | Block/ | admin for questions.); left | | | | Epidur | interscalene catheter | | | | al | | | | | (doc. | | | | | amount | | | | | | | | | | delive | | | | | red at | | | | | 0600, | | | | | 1400, | | | | | 2200, | | | | | d/c) | | | | +--------+ + + + | RETIRE | 07/22/11; 0818; incision left | 07/22/11 0818 by | 07/22/11 1145 by | | D - | shoulder x3; No; Left:; shoulder; | [place] | Britta Etienne RN | | Incisi | 07/22/11; 1145 | | | | on | | | | +--------+ + + + documented in this encounter Social [...] filedocumented in this encounter Administered Medications + +--------+ + +------+------+ | Medication Order | MAR | Action | Dose | Rate | Site | | | Action | Date | | | | + +--------+ + +------+------+ | ceFAZolin (aka ANCEF) injection | Given | 07/22/19 | 1,000 mg | | | | intravenous, INTRAPROCEDURE | | 12 8:09 | | | | | PRN, Starting 07/22/11 at | | AM PDT | | | | | 0809, Until 07/22/11 at 1019 | | | | | | + +--------+ + +------+------+ +---+---+ | | | +---+---+ + +-------+ +-------+---+---+ | dexamethasone (aka DECADRON) | Given | 07/22/19 | 10 mg | | | | injection intravenous, | | 12 8:30 | | | | | INTRAPROCEDURE PRN, Starting Tue | | AM PDT | | | | | 07/22/11 at 0830, Until Tue | | | | | | | 07/22/11 at 1019 | | | | | | + +-------+ +-------+---+---+ +---+---+ | | | +---+---+ + +-------+ +------+---+---+ | ePHEDrine injection | Given | 07/22/19 | 5 mg | | | | intravenous, INTRAPROCEDURE PRN, | | 12 8:26 | | | | | Starting 07/22/11 at 0826, | | AM PDT | | | | | Until 07/22/11 at 1019 | | | | | | + +-------+ +------+---+---+ +---+---+ | | | +---+---+ + +-------+ +--------+---+---+ | fentaNYL citrate (PF) (aka | Given | 07/22/19 | 25 mcg | | | | SUBLIMAZE) injection | | 12 9:30 | | | | | INTRAPROCEDURE PRN, Starting Tue | | AM PDT | | | | | 07/22/11 at 0706, Until Tue | | | | | | | 07/22/11 at 1019, sedation | | | | | | + +-------+ +--------+---+---+ +-------+ +---------+---+---+ | Given | 07/22/19 | 100 mcg | | | | | 12 7:54 | | | | | | AM PDT | | | | +-------+ +---------+---+---+ | Given | 07/22/19 | 50 mcg | | | | | 12 7:06 | | | | | | AM PDT | | | | +-------+ +---------+---+---+ +---+---+ | | | +---+---+ + +---------+ +----+---+---+ | lactated ringers IV | New Bag | 07/22/19 | mL | | | | INTRAPROCEDURE CONTINUOUS PRN, | | 12 9:10 | | | | | Starting 07/22/11 at 0702, | | AM PDT | | | | | Until 07/22/11 at 1019 | | | | | | + +---------+ +----+---+---+ +---------+ +----+---+---+ | New Bag | 07/22/19 | mL | | | | | 12 7:02 | | | | | | AM PDT | | | | +---------+ +----+---+---+ +---+---+ | | | +---+---+ + +-------+ +-------+---+---+ | lidocaine (aka XYLOCAINE MPF) | Given | 07/22/19 | 60 mg | | | | 20 mg/mL (2 %) injection | | 12 7:55 | | | | | INTRAPROCEDURE PRN, Starting Tue | | AM PDT | | | | | 07/22/11 at 0755, Until Tue | | | | | | | 07/22/11 at 1019 | | | | | | + +-------+ +-------+---+---+ +---+---+ | | | +---+---+ + +-------+ +------+---+---+ | midazolam (aka VERSED) | Given | 07/22/19 | 1 mg | | | | injection INTRAPROCEDURE PRN, | | 12 7:06 | | | | | Starting 07/22/11 at 0706, | | AM PDT | | | | | Until 07/22/11 at 1019, | | | | | | | sedation | | | | | | + +-------+ +------+---+---+ +---+---+ | | | +---+---+ + +-------+ +------+---+---+ | ondansetron (aka ZOFRAN) | Given | 07/22/19 | 4 mg | | | | injection INTRAPROCEDURE PRN, | | 12 10:07 | | | | | Starting e 07/22/11 at 1007, | | AM PDT | | | | | Until Thu07/22/11 at 1019 | | | | | | + +-------+ +------+---+---+ +---+---+ | | | +---+---+ + +-------+ +-------+---+---+ | propofol INTRAPROCEDURE PRN, | Given | 07/22/19 | 20 mg | | | | Starting e 07/22/11 at 0755, | | 12 9:30 | | | | | Until Thu07/22/11 at 1019 | | AM PDT | | | | + +-------+ +-------+---+---+ +-------+ +--------+---+---+ | Given | 07/22/19 | 70 mg | | | | | 12 7:57 | | | | | | AM PDT | | | | +-------+ +--------+---+---+ | Given | 07/22/19 | 130 mg | | | | | 12 7:55 | | | | | | AM PDT | | | | +-------+ +--------+---+---+ +---+---+ | | | +---+---+ + +-------+ +-------+---+---+ | rocuronium (aka ZEMURON) | Given | 07/22/19 | 30 mg | | | | injection INTRAPROCEDURE PRN, | | 12 7:54 | | | | | Starting 07/22/11 at 0754, | | AM PDT | | | | | Until 07/22/11 at 1019, | | | | | | | Neuromuscular block | | | | | | + +-------+ +-------+---+---+ +---+---+ | | | +---+---+ + +---------+ +---------+---------+---+ | ropivacaine 0.2% peripheral | New Bag | 07/22/19 | 6 mL/hr | 6 mL/hr | | | nerve block ([facility], Single, I-Flow | | 12 10:31 | | | | | pump) injection, CONTINUOUS, | | AM PDT | | | | | Starting 07/22/11 at 1100, | | | | | | | Until 07/22/11 at 1327 | | | | | | + +---------+ +---------+---------+---+ +---+---+ | | | +---+---+ documented in this encounter"
--- OUTSIDE RECORDS SUMMARY | ~2018-07-13 | XMS | Encounter Summary ---
Demographics + + + | Address | [address] | | | [place] [address] | + + + | Home Phone | | + + + | Preferred Language | Unknown | + + + | Marital Status | | + + + | Anabaptism Affiliation | NON | + + + | Race | White | + + + | Ethnic Group | Not or | + + + Author + + + | Author | [facility] | + + + | Organization | [facility] | + + + | Address | Unknown | + + + | Phone | Unavailable | + + + Support + + + + + | Name | Relationship | Address | Phone | + + + + + | Elizabeth Welch | ECON | [address] | | | | | [place] | | | | | [address] | | + + + + + Care Team Providers + +------+ + | Care Machining And Assembly Supervisor Name | Role | Phone | [...] | | shoulder | Provider Per | [address] | | | | | pain | Patient NO | [address] | | | | | | REFERRING | [address] [place], | | | | | | PROVIDER PER | [place] | | | | | | [place] | [address] | | | | | | | Phone: | | | | | | | [phone] | | | | | | | Fax: | | | | | | | [phone] | +--------+--------+ + + + + Encounter Details +--------+---------+ + + + | Date | Type | Department | Care Team | Description | +--------+---------+ + + + | 06/29/ | Office | Orthopaedics at | Misael Myers MD | Shoulder pain | | 2011 | Visit | [facility] [address] | [address] | (Primary Dx) | | | | Ave Mailcode: CH12A | [address] | | | | | [place] for [facility] | [place], [place] | | | | | and , | [address] | | | | | Floor [place], [place] | [phone] | | | | | [address] | | | | | | [phone] | | | +--------+---------+ + + + [...]
--- OUTSIDE RECORDS SUMMARY | ~2018-07-13 | XMS | Encounter Summary ---
Demographics + + + | Address | [address] | | | [place] [address] | + + + | Home Phone [...] [place] | | | | | [address] | | + + + + + Care Team Providers + +------+ + | Care Crew Clerk Name | Role | Phone | [...] | | | | | PHYSICAL | [place], [place] | [address] | | | | | THERAPY | [address] | for Health | | | | | REFERRAL | Phone: | and Healing, | | | | | | [phone] | 1st floor | | | | | | Fax: | [place], [place] | | | | | | [phone] | [address] | | | | | | | Phone: | | | | | | | [phone] | | | | | | | Fax: | | | | | | | [phone] | +--------+--------+ + + + + Encounter [...] | | [facility] | Celestine Carmen | | | | | [address] | [place], [place] | | | | | Mailcode: CH3 | [address] | | | | | [facility] | | | | | | and Ned, 1st | | | | | | floor [place], [place] | | | | | | [address] | | | | | | [phone] | | | +--------+---------+ + + + [...] might be different fr om the original. [id number] KEVON WELCH Date of : 1940 Start of care: 06/30/2011 Date of onset:12/24/10 Referring/Attending Practitioner: Misael Myers MD . Primary/Referral Diagnosis/ICD-9: Encounter Diagnoses Name Primary? Shoulder pain Yes Insurance: Payor: [employer]DS MEDICARE Plan: ODS MEDICARE Product Type: PPO Service period from: 06/30/2011 to: 09/28/11 Number visits used/authorized: 4 [facility]: Pre-op SHOULDER Subjective: Pt is [...] t 24 hours in advance by calling [phone]. Our office is open 7am-6pm and there is a [employer] ssage line 24 hours a day. Any [...] change in their status. PHILLY RAIN PT [facility] [address] Mailcode: [address] And [facility], 1st Floor [facility] [address] documented in this e ncounter Plan of Treatment Not on filedocumented as of this encounter Procedures + +--------+ + + + | Procedure Name | Priori | Date/Time | Associated Diagnosis | Comments | | | ty | | | | + +--------+ + + + | [place] MANUAL THER | Routin | 06/30/2011 | Shoulder pain | | | TECH,1+REGIONS,EA 15 | e | 4:12 PM | | | | MIN | | PDT | | | + +--------+ + + + | [place] THERAPEUTIC | Routin | 06/30/2011 | Shoulder [...]
--- OUTSIDE RECORDS SUMMARY | ~2018-07-13 | XMS | Encounter Summary ---
Demographics + + + | Address | [address] | | | [place] [address] | + + + | Home Phone [...] [place] | | | | | [address] | | + + + + + Care Team Providers + +------+ + | Care Fire Department Battalion Chief Name | Role | Phone | + [...] Procedures | [facility] | Mailcode: | | | | | PHYSICAL | Rd | [facility] | | | | | THERAPY | [place], [place] | for Health | | | | | REFERRAL | [address] | and Healing, | | | | | | | 1st floor | | | | | | | [place], [place] | | | | | | | [address] | | | | | | | Phone: | | | | | | | [phone] | | | | | | | Fax: | | | | | | | [phone] | +--------+--------+ + + + + Encounter [...] | [facility] | [address] | | | | | [address] | [place], [place] | | | | | Mailcode: [facility] | [address] | | | | | [facility] | | | | | | and Healing, 1st | | | | | | floor [place], [place] | | | | | | [address] | | | | | | [phone] | | | +--------+---------+ + + + [...] might be different from the o saul. [id number] KEVON WELCH Date of : 1940 Start of care: 05/19/2013 Date of onset: 03/21/2013 Referring/Attending Practitioner: Misael Myers Primary/Referral Diagnosis/ICD-9: Shoulder pain, right (primary encounter diagnosis) Insurance: Payor: [employer] MEDICARE Plan: [employer] MEDICARE Product Type: P PO Service period from: 05/19/2013 to 01/18/2014 Number visits used/authorized: 07/21 [facility] PHYSICAL THERAPY TREATMENT - [...] Right 07/20/2013 Right 08/11/2013 Flexion 141 155 [id number]* [id number] Pre 125* Post 140 Abduction 146 150 [id number]* [id number] Pre 95* Post 132 ER at 90 [...] home exercise program as pt lives in [facility] for posterior do minant shoulder strength Frequency/Duration: Follow up prn due to pt living in [facility], [place] Treatment began: 1100 [...] in the student's note. Alise Washington, PT [facility] [address] Mailcode: [place] [address] documented in this encounter Plan of Treatment Not on filedocumented as of this encounter Procedures + +--------+ + + + | Procedure Name | Priori | Date/Time | Associated Diagnosis | Comments | | | ty | | | | + +--------+ + + + | [place] MANUAL THER | Routin | 08/30/2013 | Shoulder pain, | | | TECH,1+REGIONS,EA 15 | e | 1:58 PM | right | | | MIN | | PDT | | | + +--------+ + + + | [place] THERAPEUTIC | Routin | 08/30/2013 | Shoulder [...]
--- OUTSIDE RECORDS SUMMARY | ~2018-07-13 | XMS | Encounter Summary ---
Demographics + + + | Address | [address] | | | [place] [address] | + + + | Home Phone [...] [place] | | | | | [address] | | + + + + + Care Team Providers + +------+ + | Care Animal Husbandry Technician Name | Role | Phone | [...] | 2017 | Encounter | Lab at [facility] [address] | [address] | | | | | [address] Mailcode: | [address] | | | | | [facility] | [place], [place] | | | | | Health and [facility], | [address] | | | | | 3rd Floor [place], | [phone] | | | | | [place] [address] | | | | | | [phone] | | | +--------+ + + + [...]
--- OUTSIDE RECORDS SUMMARY | ~2018-07-13 | XMS ---
Demographics + + + | Address | [address] | | | [place] [address] | + + + | Preferred Language | Unknown | + + + | Marital Status | Unknown | + + + | Amish Affiliation | Unknown | + + + | Race | Unknown | + + + | Ethnic Group | Unknown | + + + Author + + + | Author | [facility] | + + + | Organization | [facility] | + + + | Address | [address] | | | [place] [address] | + + + | Phone | | + + + Care Team Providers + + + + | Care Process Cheese Cooker Name | Role | Phone | + + + + Unavailable | Unavailable | + + + + PROBLEMS +---------+ + + +--------+ + + | Type | Condition | ICD9-CM | [id number] | Onset | Condition | SNOMED | | | | Code | Code | Dates | Status | Code | +---------+ + + +--------+ + + | Problem | HTN | | I10 | | Active | [id number] | | | (hypertens | | | | | | | | ion) | | | | | | +---------+ + + +--------+ + + | Problem | Nasal | | R09.81 | | Active | 70064069 | | | congestion | | | | | | +---------+ + + +--------+ + + | Problem | Screening | Z13.6 | | | Active | [id number] | | | for | | | | | | | | hypertensi | | | | | | | | on | | | | | | +---------+ + + +--------+ + + | Problem | Physical | | Z00.00 | | Active | 63502609 | | | exam | | | | | | +---------+ + + +--------+ + + | Problem | Cough | | R05 | | Active | 53202862 | +---------+ + + +--------+ + + | Problem | Screening | | Z13.220 | | Active | 400688702 | | | cholestero | | | | | | | | l level | | | | | | +---------+ + + +--------+ + + ALLERGIES Unknown Allergies SOCIAL HISTORY No smoking Hx information available PLAN OF CARE VITAL SIGNS MEDICATIONS Unknown Medications RESULTS No Results PROCEDURES No Known procedures IMMUNIZATIONS No Known Immunizations"
--- OUTSIDE RECORDS SUMMARY | ~2018-07-13 | XMS | Encounter Summary ---
Demographics + + + | Address | [address] | | | [place] [address] | + + + | Home Phone | | + + + | Preferred Language | Unknown | + + + | Marital Status | | + + + | Gnosticist Affiliation | NON | + + + [...] [place] | | | | | [address] | | + + + + + Care Team Providers + +------+ + | Care Director Of Accounting Name | Role | Phone | + [...] | | | PHYSICAL | [facility] [place] | [facility] | | | | | THERAPY | [address] | for Health | | | | | REFERRAL | Phone: | and Healing, | | | | | | [phone] | 1st floor | | | | | | Fax: | [place], [place] | | | | | | [phone] | [address] | | | | | | | Phone: | | | | | | | [phone] | | | | | | | Fax: | | | | | | | [phone] | +--------+--------+ + + + + Encounter [...] [facility] | [address] | | | | | [address] | [place], [place] | | | | | Mailcode: CH3P | [address] | | | | | [facility] | | | | | | and Healing, 1st | | | | | | floor [facility] [place] | | | | | | [address] | | | | | | [phone] | | | +--------+---------+ + + + [...] might be different fr om the original. [id number] KEVON WELCH Date of : 1940 Start of care: 07/24/11 Date of onset:07/22/11 Referring/Attending Practitioner: Misael Myers MD . Primary/Referral Diagnosis/ICD-9: Encounter Diagnoses Name Primary? Shoulder pain Yes Insurance: Payor: [employer] MEDICARE Plan: [employer] MEDICARE Product Type: PPO Service period from: 07/24/11-08/23/11 Number visits used/authorized: 3 [facility] PHYSICAL THERAPY: Post-op SHOULDER PO [...] joint arthritis, no obvious biceps p athology eKvon's Goals: 1. Decrease shoulder pain 2. Complete [...] request that all cancellations be made at [facility] 24 hours in advance by calling [phone]. Our office is open 7am-6pm and there is a [employer] ssage line 24 hours a day. Any [...] change in their status. LENA RAIN PT [facility] [address] Mailcode: [address] [facility], [address] [place] [address] documented in this e ncounter Plan [...]
--- OUTSIDE RECORDS SUMMARY | ~2018-07-13 | XMS | Clinical Summary ---
Demographics + + + | Address | [address] | | | [place] [address] | + + + | Home Phone | | + + + | Preferred Language | Unknown | + + + | Marital Status | | + + + | Sabianist Affiliation | Unknown | + + + | Race | Unknown | + + + | Ethnic Group | Unknown | + + + Author + + + | Author | [facility] | | | and [place] | + + + | Organization | [facility] | | | and [place] [...] [place] | | | | | [address] | | + + + + + Care Team Providers + +------+ + | Care Hand Ornament Maker Name | Role | Phone | [...] | [employer] [facility] | [facility] | [id number] | 02/09/19 | | | [employer] | [...] | | al/Fam | | 1941 | [phone] | [place] [address] | | | lyla | | | 7 (Home) | | + +--------+ +--------+ + + Advance Directives Patient has advance care planning documents on file. For more information, please contact:[facility] [place] [address]
--- OUTSIDE RECORDS SUMMARY | ~2018-07-13 | XMS | Encounter Summary ---
Demographics + + + | Address | [address] | | | [place] [address] | + + + | Home Phone [...] [place] | | | | | [address] | | + + + + + Care Team Providers + +------+ + | Care Physical Metallurgist Name | Role | Phone | + [...] | | | | | PHYSICAL | [facility] [place] | [facility] | | | | | THERAPY | [address] | for Health | | | | | REFERRAL | Phone: | and Healing, | | | | | | [phone] | 1st floor | | | | | | Fax: | [place], [place] | | | | | | [phone] | [address] | | | | | | | Phone: | | | | | | | [phone] | | | | | | | Fax: | | | | | | | [phone] | +--------+--------+ + + + + Encounter Details +--------+ + + + + | Date | Type | Department | Care Team | Description | +--------+ + + + + | 05/13/ | Frameman | Orthopaedics at | Katty Chairez PA | Shoulder pain | | 2011 | | [facility] [address] | [address] | (Primary Dx) | | | | Ave Mailcode: CH12A | [place], [place] | | | | | [place] for [facility] | [address] | | | | | and , | [phone] | | | | | Floor [place], [place] | | | | | | [address] | | | | | | [phone] | | | +--------+ + + + [...]
--- OUTSIDE RECORDS SUMMARY | ~2018-07-13 | XMS ---
Demographics + + + | Address | [address] | | | [place] [address] | + + + | Preferred Language | Unknown | + + + | Marital Status | Unknown | + + + | Methodist Affiliation | Unknown | + + + | Race | Unknown | + + + | Ethnic Group | Unknown | + + + Author + + + | Author | [facility] | + + + | Organization | [facility] | + + + | Address | 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 | | | Active | [id number] | | | thy of | | | | | | | | cervical | | | | | | | | region | | | | | | +---------+ + + +--------+ + + | Problem | HTN | | I10 | | Active | [id number] | | | (hypertens | | | | | | | | ion) | | | | | | +---------+ + + +--------+ + + | Problem | Nasal | | R09.81 | | Active | [id number] | | | congestion | | | | | | +---------+ + + +--------+ + + | Problem | Screening | Z13.6 | | | Active | [id number] | | | for | | | | | | | | hypertensi | | | | | | | | on | | | | | | +---------+ + + +--------+ + + | Problem | Physical | | Z00.00 | | Active | 19066323 | | | exam | | | | | | +---------+ + + +--------+ + + | Problem | Cough | | R05 | | Active | [id number] | +---------+ + + +--------+ + + | Problem | Screening | | Z13.220 | | Active | 301856702 | | | cholestero | | | | | | | | l level | | | | | | +---------+ + + +--------+ + + ALLERGIES No Information SOCIAL HISTORY Never Assessed PLAN OF CARE VITAL SIGNS MEDICATIONS + + + + + + + +--------+ | Medicati | Instruct | Dosage | Frequenc | Start | End Date | Duration | Status | | on | ions | | y | Date | | | | + + + + + + + +--------+ | Cipro | Orally | 1 tablet | 12h | Nov, | 10 Nov, | 7 days | Active | | 500 mg | Twice a | | | 2016 | 2016 | | | | | day | | | | | | | + + + + + + + +--------+ | Augmenti | orally | 1 tablet | 12h | Oct, | 3 Oct, | 7 days | Active | | n | every 12 | | | 2016 | 2016 | | | | 500/125 | hrs | | | | | | | + + + + + + + +--------+ RESULTS No Results PROCEDURES No Known procedures IMMUNIZATIONS No Known Immunizations MEDICAL (GENERAL) HISTORY + + +------+ | Type | Description | Date | + + +------+ | Medical History | status post cholecystectomy | | | | of October | | | | 2014, Dr. Montana | | + + +------+ | Medical History | left shoulder surgery | | | | [facility] | | | | [facility], 2014 | | + + +------+ | Medical History | back surgery in while off | | | | for L4 disc rupture, | | | | sequela right footdrop | | | | resolved | | + + +------+ | Medical History | right footdrop resolved | | | | following surgery | | + + +------+ | Medical History | elevated LFTs likely | | | | secondary to gallbladder | | | | surgery, resolved | | + + +------+ | Medical History | mildly elevated blood sugar | | | | possibly due to stress of | | | | surgery | | + + +------+ | Medical History | long-lived family members | | | | father is greater than 100. | | | | Father was in World War | | | | II, had PTSD, physician, | | | | assisted in caring for | | | | concentration camp patient | | + + +------+ | Medical History | Colonoscopy: Dr. Montana, | | | | 2011, previously 5 years | | | | before. Five total. 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 Montana 2016 | | + + +------+ | Surgical History | gallbladder | | + + +------+ | Surgical History | Left Rotator Cuff injury | 2011 | | | and repair Misael Myers | | | | [facility]. | | + + +------+"
--- OUTSIDE RECORDS SUMMARY | ~2018-07-13 | XMS | Encounter Summary ---
Demographics + + + | Address | [address] | | | [place] [address] | + + + | Home Phone [...] [place] | | | | | [address] | | + + + + + Care Team Providers + +------+ + | Care Licensed Loan Officer Name | Role | Phone | + +------+ + | Doyle Johnson MD | PCP | Unavailable | + +------+ + Encounter Details +--------+ + + + + | Date | Type | Department | Care Team | Description | +--------+ + + + + | 06/29/ | Anesthesia | Preoperative | Lida Houser, | | | 2011 | Event | [facility] at | ANP [address] | | | | | [facility] 4th Floor [address] | [address] | | | | | [address] | [place], [place] | | | | | Code: [address] | [address] | | | | | for Health and | [phone] | | | | | Healing,4th Floor | | | | | | [place], [place] | | | | | | [address] | | | | | | [phone] | | | +--------+ + + + [...]
--- OUTSIDE RECORDS SUMMARY | ~2018-07-13 | XMS | Encounter Summary ---
Demographics + + + | Address | [address] | | | [place] [address] | + + + | Home Phone [...] [place] | | | | | [address] | | + + + + + Care Team Providers + +------+ + | Care Advisory Software Engineer Name | Role | Phone | [...] | | | | | Procedures | [facility] | Mailcode: | | | | | PHYSICAL | Rd | [facility] | | | | | THERAPY | [place], [place] | for Health | | | | | REFERRAL | [address] | and Healing, | | | | | | | 1st floor | | | | | | | [place], [place] | | | | | | | [address] | | | | | | | Phone: | | | | | | | [phone] | | | | | | | Fax: | | | | | | | [phone] | +--------+--------+ + + + + Encounter Details +--------+---------+ + + + | Date | Type | Department | Care Team | Description | +--------+---------+ + + + | 06/23/ | Office | [place] Physical | Rupesh, | Shoulder pain | | 2013 | Visit | Therapy Services at | Alise, PT [address] | (Primary Dx) | | | | [facility] | [address] | | | | | [address] | [place], [place] | | | | | Mailcode: CH3P | [address] | | | | | [facility] | | | | | | and Ned, 1st | | | | | | floor [place], [place] | | | | | | [address] | | | | | | [phone] | | | +--------+---------+ + + + [...] [place] PT - 06/23/2013 8:58 AM PDT [id number] KEVON WELCH Date of : 1940 Start of care: 05/19/2013 Date of onset: 03/21/2013 Referring/Attending Practitioner: Misael Myers Primary/Referral Diagnosis/ICD-9: Shoulder pain (primary encounter diagnosis) Insurance: Payor: [employer] [facility] ODS MEDICARE Plan: [employer] ODS MEDICARE Product Type: P PO Service period from: 05/19/2013 to - Number visits used/authorized: 2/- [facility] PHYSICAL THERAPY TREATMENT - ORTHO SUBJECTIVE: Current: [...] home exercise program as pt lives in [place], [place] for posterior do minant shoulder strength Frequency/Duration: Follow up prn due to pt living in [place] and traveling to [facility] for 4 weeks Treatment began: 899 Treatment ended: 944 This note is to serve as the discharge summary if Kevon fails to attend further Physical Th erapy appointments or contact the therapist regarding any change in their status. Alise [place], Pt [facility] AND HAND THERAPY [address] Mailcode: [place] [address] documented in this encounter Plan of Treatment Not on filedocumented as of this encounter Procedures + +--------+ + + + | Procedure Name | Priori | Date/Time | Associated Diagnosis | Comments | | | ty | | | | + +--------+ + + + | ND MANUAL THER | Routin | 06/23/2013 | Shoulder pain | | | TECH,1+REGIONS,EA 15 | e | 10:22 AM | | | | MIN | | PDT | | | + +--------+ + + + | ND THERAPEUTIC | Routin | 06/23/2013 | Shoulder [...]
--- OUTSIDE RECORDS SUMMARY | ~2018-07-13 | XMS | Encounter Summary ---
Demographics + + + | Address | [address] | | | [place] [address] | + + + | Home Phone [...] [place] | | | | | [address] | | + + + + + Care Team Providers + +------+ + | Care Pharmacy Intake Technician Name | Role | Phone | [...] | | | | | THERAPY | [place], [place] | for Health | | | | | REFERRAL | [address] | and Healing, | | | | | | Phone: | 1st floor | | | | | | [phone] | [place], [place] | | | | | | Fax: | [address] | | | | | | [phone] | Phone: | | | | | | | [phone] | | | | | | | Fax: | | | | | | | [phone] | +--------+--------+ + + + + Reason [...] | | | is, | [place] | [address] | | | | | unspecified | | Phone: | | | | | whether | | [phone] | | | | | generalized | | Fax: | | | | | or | | [phone] | | | | | localized, | [...] | | | | | | | POLICY INTERN | | | | | | | [place] SHLDR | | | | | | | ARTHROSCOP,P | | | | | | | ART | | | | | | | ACROMIOPLAS | | | | | | | W/CORACOACRO | | | | | | | M [place] SHLDR | | | | | | | ARTHROSCOP,S | | | | | | | URG,DIS | | | | | | | CLAVICULECTO | | | | | | | MY [place] | | | | | | | [...] pain | | 2011 | Visit | [facility] [address] | [address] | (Primary Dx) | | | | Ave Mailcode: CH12A | [facility], | | | | | [facility] | [place] [address] | | | | | and Healing, | [phone] | | | | | Floor [place], [place] | | | | | | [address] | | | | | | [phone] | | | +--------+---------+ + + + [...]
--- OUTSIDE RECORDS SUMMARY | ~2018-07-13 | XMS | Encounter Summary ---
Demographics + + + | Address | [address] | | | [place] [address] | + + + | Home Phone [...] [place] | | | | | [address] | | + + + + + Care Team Providers + +------+ + | Care Life Coach Name | Role | Phone | + [...] | intervertebral disc | | | | [facility] | [facility] | (Primary Dx) | | | | [address] | Road [place], [place] | | | | | Mailcode: [facility] | [address] | | | | | [facility] | | | | | | and Healing, [facility] | | | | | | floor [place], [place] | | | | | | [address] | | | | | | [phone] | | | +--------+---------+ + + + [...] Dailey, PT - 10/10/2011 1:41 PM PDT [id number] KEVON WELCH Date of : 1940 Start of care: 10/09/2011 Date of onset: 09/10/11 Referring/Attending Practitioner: Alcira Bocanegra PA . Primary/Referral Diagnosis/ICD-9: 722.10H Herniated lumbar intervertebral disc Insurance: Payor: ODS MEDICARE Plan: ODS MEDICARE Product Type: PPO Service period from: 10/09/2011 to: 11/08/11 Number visits used/authorized: 1/ Neurologist: Dr. Rafal Benites [address] [address] (Office) [facility] PHYSICAL THERAPY SUBJECTIVE Age: 71 y.o. Sex: male Chief complaint: Today's report: 03/21. Walking. Foot drop. 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 No lying on stomach since 8 years o ld due to back pain History of Presenting Problems: Kevon Welch is a 71 y.o. male with c/o LBP that began about a month ago. He was bending over to tile picker a garden hose and felt increased [...] | + +--------+ + + + | GA THERAPEUTIC | Routin | 10/10/2011 | Herniated [...]
--- OUTSIDE RECORDS SUMMARY | ~2018-07-13 | XMS | Encounter Summary ---
Demographics + + + | Address | [address] | | | [place] [address] | + + + | Home Phone [...] [place] | | | | | [address] | | + + + + + Care Team Providers + +------+ + | Care Driver Sales Name | Role | Phone | + [...] | | shoulder | Provider Per | [address] | | | | | pain | Patient NO | [address] | | | | | | REFERRING | [address] [place], | | | | | | PROVIDER PER | [place] | | | | | | [place] | [address] | | | | | | | Phone: | | | | | | | [phone] | | | | | | | Fax: | | | | | | | [phone] | +--------+--------+ + + + + Encounter Details +--------+---------+ + + + | Date | Type | Department | Care Team | Description | +--------+---------+ + + + | 03/27/ | Office | Orthopaedics at | Misael Myers MD | Rotator cuff | | 2011 | Visit | [facility] [address] | [address] | tendinitis (Primary | | | | Ave Mailcode: CH12A | [address] | Dx) | | | | [place] [facility] | [place], [place] | | | | | and [facility], | [address] | | | | | Floor [place], [place] | [phone] | | | | | [address] | | | | | | [phone] | | | +--------+---------+ + + + [...]
--- OUTSIDE RECORDS SUMMARY | ~2018-07-13 | XMS | Encounter Summary ---
Demographics + + + | Address | [address] | | | [place] [address] | + + + | Home Phone [...] [place] | | | | | [address] | | + + + + + Care Team Providers + +------+ + | Care Project Management Instructor Name | Role | Phone | [...] | Physical | Diagnoses | Rafal, | [facility] | | | | Therapy [...] | | | | Thoracic or | [address] | [place], [place] | | | | | lumbosacral | Phone: | [phone] | | | | | neuritis or | [phone] | Phone: | | | | | radiculitis, | Fax: | [phone] | | | | | unspecified | [phone] | Fax: | | | | | | | [phone] | | | | | Degeneration | [...] | intervertebral disc; | | | | [facility] | [facility] | Degeneration of | | | | [address] | Road [place], [place] | lumbar | | | | Mailcode: CH3P | [address] | intervertebral disc | | | | [facility] | | | | | | and Ned, 1st | | | | | | floor [place], [place] | | | | | | [address] | | | | | | [phone] | | | +--------+---------+ + + + [...] Dailey, PT - 12/25/2011 8:46 AM PST [id number] KEVON WELCH Date of : 1940 Start of care: 10/09/2011 Date of onset: 09/10/11 Referring/Attending Practitioner: Alcira Bocanegra PA ; Clara Fernandez/Referral Di agnosis/ICD-9: 722.10H Herniated lumbar intervertebral disc Insurance: Payor: ODS MEDICARE Plan: ODS MEDICARE Product Type: PPO Service period from: 12/25/2011 to: 01/23/12 Number visits used/authorized: 6/ Neurologist: Dr. Rafal Benites [facility] [address] [place] [address] (Office) Neurosurgeon: Sen Whitman [address] [place] [address] [facility] PHYSICAL THERAPY SUBJECTIVE Age: 71 y.o. [...] month ago. 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 1x/month to accomadate long drive from [employer]. Treatment began: 830 Treatment ended: 915 This [...] + | PA THERAPEUTIC | Routin | 12/25/2011 | Herniated lumbar | | | EXERCISES | e | 9:41 AM | intervertebral disc | | | | | PST | Degeneration of | | | | | | lumbar | | | | | | intervertebral disc | | + +--------+ + + + | PA PHYS THERAPY | Routin | 12/25/2011 | [...]
--- OUTSIDE RECORDS SUMMARY | ~2018-07-13 | XMS | Encounter Summary ---
Demographics + + + | Address | [address] | | | [place] [address] | + + + | Home Phone | | + + + | Preferred Language | Unknown | + + + | Marital Status | | + + + | Pentecostalism Affiliation | NON | + + + [...] [place] | | | | | [address] | | + + + + + Care Team Providers + +------+ + | Care Client Support Professional Name | Role | Phone [...] | | sprain | REFERRING | Rd [place], | | | | | Osteoarthros | PROVIDER PER | [place] | | | | | [place], | [place] | [address] | | | | | unspecified | | Phone: | | | | | whether | | [phone] | | | | | generalized | | Fax: | | | | | or | | [phone] | | | | | localized, | [...] | | | | | | DIRECTOR OPERATIONS BROADCAST | | | | | | | PA SHLDR | | | | | | | ARTHROSCOP,P | | | | | | | ART | | | | | | | ACROMIOPLAS | | | | | | | W/CORACOACRO | | | | | | | M [place] SHLDR | | | | | | | ARTHROSCOP,S | | | | | | | URG,DIS | | | | | | | CLAVICULECTO | | | | | | | MY [place] | | | | | | | [...] | | | Ave Mailcode: CH12A | [place], [place] | | | | | [facility] | [address] | | | | | and [facility], [facility] | [phone] | | | | | Floor [place], [place] | | | | | | [address] | | | | | | [phone] | | | +--------+---------+ + + + [...]
--- OUTSIDE RECORDS SUMMARY | ~2018-07-13 | XMS | Encounter Summary ---
Demographics + + + | Address | [address] | | | [place] [address] | + + + | Home Phone [...] [place] | | | | | [address] | | + + + + + Care Team Providers + +------+ + | Care Wares Sorter Name | Role | Phone | + [...] | | | | | THERAPY | [address] | for Health | | | | | REFERRAL | Phone: | and Healing, | | | | | | [phone] | 1st floor | | | | | | Fax: | [place], [place] | | | | | | [phone] | [address] | | | | | | | Phone: | | | | | | | [phone] | | | | | | | Fax: | | | | | | | [phone] | +--------+--------+ + + + + Encounter [...] | | [facility] | [address] | | | | | [address] | [place], [place] | | | | | Mailcode: CH3P | [address] | | | | | [facility] | | | | | | and Healing, 1st | | | | | | floor [facility] [place] | | | | | | [address] | | | | | | [phone] | | | +--------+---------+ + + + [...] might be different fr om the original. [id number] KEVON WELCH Date of : 1940 Start of care: 07/24/11 Date of onset:07/22/11 Referring/Attending Practitioner: Misael Myers MD . Primary/Referral Diagnosis/ICD-9: Encounter Diagnoses Name Primary? Shoulder pain Yes Insurance: Payor: ODS MEDICARE Plan: ODS MEDICARE Product Type: PPO Service period from: 07/24/11-08/23/11 Number visits used/authorized: 2 [facility] PHYSICAL THERAPY: Post-op SHOULDER POST OP DAY [...] weeks Treatment began: 1345 Treatment ended: 1420; [id number] for game ready Reviewed cancel/no show policy with patient. Pt voiced understanding. "At times we understand you must cancel. We request that all cancellations be made at [facility] t 24 hours in advance by calling [phone]. Our office is open 7am-6pm and there is a [employer] line 24 hours a day. Any appointment [...] their status. LENA RAIN PT [facility] AND HAND THERAPY [address] Mailcode: [address] [facility], [address] [place] [address] documented in this e ncounter Plan of Treatment Not on filedocumented as of this encounter Procedures + +--------+ + + + | Procedure Name | Priori | Date/Time | Associated Diagnosis | Comments | | | ty | | | | + +--------+ + + + | MA MANUAL THER | Routin | 08/05/2011 | Shoulder pain | | | TECH,1+REGIONS,EA 15 | e | 4:04 PM | | | | MIN | | PDT | | | + +--------+ + + + | MA THERAPEUTIC | Routin | 08/05/2011 | Shoulder [...]
--- OUTSIDE RECORDS SUMMARY | ~2018-07-13 | XMS | Encounter Summary ---
Demographics + + + | Address | [address] | | | [place] [address] | + + + | Home Phone [...] [place] | | | | | [address] | | + + + + + Care Team Providers + +------+ + | Care Irrigation Manager Name | Role | Phone | [...] | | | | Thoracic or | [address] | [place], [place] | | | | | lumbosacral | Phone: | [phone] | | | | | neuritis or | [phone] | Phone: | | | | | radiculitis, | Fax: | [phone] | | | | | unspecified | [phone] | Fax: | | | | | | | [phone] | | | | | Degeneration | [...] | intervertebral disc; | | | | [facility] | [facility] | Degeneration of | | | | [address] | Road [place], [place] | lumbar | | | | Mailcode: CH3P | [address] | intervertebral disc | | | | [facility] | | | | | | and Ned, 1st | | | | | | floor [place], [place] | | | | | | [address] | | | | | | [phone] | | | +--------+---------+ + + + [...] Dailey, PT - 12/25/2011 8:46 AM PST [id number] KEVON WELCH Date of : 1940 Start of care: 10/09/2011 Date of onset: 09/10/11 Referring/Attending Practitioner: Alcira Bocanegra PA ; Clara Fernandez/Referral Di agnosis/ICD-9: 722.10H Herniated lumbar intervertebral disc Insurance: Payor: ODS MEDICARE Plan: ODS MEDICARE Product Type: PPO Service period from: 12/25/2011 to: 01/23/12 Number visits used/authorized: 6/ Neurologist: Dr. Rafal Benites [facility] [address] [place] [address] (Office) Neurosurgeon: Sen Whitman [address] [place] [address] [facility] PHYSICAL THERAPY SUBJECTIVE [...] ago. He was bending over to pickle pumper a garden hose and felt increased R [...] Social History: lives with Recreational Activities/Hobbies: plays [employer]; reading; does a lot of computer/keyboarding Functional [...] disectomy. 1x/month to accomadate long drive from [employer]. Treatment began: 830 Treatment ended: 915 This [...] + | [place] THERAPEUTIC | Routin | 12/25/2011 | Herniated lumbar | | | EXERCISES | e | 9:41 AM | intervertebral disc | | | | | PST | Degeneration of | | | | | | lumbar | | | | | | intervertebral disc | | + +--------+ + + + | [place] PHYS THERAPY | Routin | 12/25/2011 | [...]
--- OUTSIDE RECORDS SUMMARY | ~2018-07-13 | XMS | Encounter Summary ---
Demographics + + + | Address | [address] | | | [place] [address] | + + + | Home Phone [...] [place] | | | | | [address] | | + + + + + Care Team Providers + +------+ + | Care Correspondence Transcriber Name | Role | Phone | [...] | | | | | THERAPY | [place], [place] | for Health | | | | | REFERRAL | [address] | and Healing, | | | | | | Phone: | 1st floor | | | | | | [phone] | [place], [place] | | | | | | Fax: | [address] | | | | | | [phone] | Phone: | | | | | | | [phone] | | | | | | | Fax: | | | | | | | [phone] | +--------+--------+ + + + + Reason [...] | | | is, | [place] | [address] | | | | | unspecified | | Phone: | | | | | whether | | [phone] | | | | | generalized | | Fax: | | | | | or | | [phone] | | | | | localized, | [...] | | | | | | | RN LAB | | | | | | | AL SHLDR | | | | | | | ARTHROSCOP,P | | | | | | | ART | | | | | | | ACROMIOPLAS | | | | | | | W/CORACOACRO | | | | | | | M [place] SHLDR | | | | | | | ARTHROSCOP,S | | | | | | | URG,DIS | | | | | | | CLAVICULECTO | | | | | | | MY [place] | | | | | | | [...] pain | | 2011 | Visit | [facility] [address] | [address] | (Primary Dx) | | | | Ave Mailcode: CH12A | [facility], | | | | | [facility] | [place] [address] | | | | | and Healing, | [phone] | | | | | Floor [place], [place] | | | | | | [address] | | | | | | [phone] | | | +--------+---------+ + + + [...]
--- OUTSIDE RECORDS SUMMARY | ~2018-07-13 | XMS | Encounter Summary ---
Demographics + + + | Address | [address] | | | [place] [address] | + + + | Home Phone [...] [place] | | | | | [address] | | + + + + + Care Team Providers + +------+ + | Care Traffic Circuit Engineer Name | Role | Phone | [...] | | | | REFERRING | Dejan [place], | | | | | | PROVIDER PER | [place] | | | | | | [place] | [address] | | | | | | | Phone: | | | | | | | [phone] | | | | | | | Fax: | | | | | | | [phone] | +--------+--------+ + + + + Encounter Details +--------+---------+ + + + | Date | Type | Department | Care Team | Description | +--------+---------+ + + + | 06/29/ | Office | Preoperative | Lida Houser, | Shoulder pain | | 2011 | Visit | Medicine Clinic at | ANP [address] | (Primary Dx); Other | | | | [facility] 4th Floor [address] | specified | | | | [address] | [place], [place] | pre-operative | | | | Code: [facility] | [address] | examination; NELY | | | | for Health and | [phone] | (obstructive sleep | | | | Healing,4th Floor | | apnea) | | | | [place], [place] | | | | | | [address] | | | | | | [phone] | | | +--------+---------+ + + + [...] perfume, lotions or powder. Remove any nail dutch from at least one fingernail. Do not [...] Time: Someone from your surgeon's office or [facility] will provide you with information [...] it is after office hours, call the [facility] acds block 1 operator at [phone] and ask them to page your doc [...] patient. Document will be s canned in [employer]. Current Medication List Name Sig IBUPROFEN 200 [...] further investigation and manageme nt. A. Acute AK within 7 days: no B. Unstable angina/Recent AK (7- 30 days): no C. Decompensated CHF: [...] no Rate of cardiac , non fatal AK, non fatal cardiac arrest 0 risk factors [...] contribute to this patient's care. BRADFORD ALVES [facility] PRE[facility]IVE MEDICINE CLINIC [address] [place] [address] [place] [address] Marilin Vang MA - 06/30/2011 2:19 PM PDT Nerve Block Home Pump Education: Total time spent during clinic visit in patient education 15 minutes. [facility] Department of Anesthesia, Regional Anesthesia patient information [...] + +--------+ + + + | [place] COLLECTION VENOUS | Routin | 06/30/2011 | [...] view image for the detailed interpretation from [employer] results. | CARDIOLOGY | + + + + + + + + | Performing | Address | City/State/Zipcode | Phone Number | | Organization | | | | + + + + + | [facility] | [address] | [place], [place] | | | CARDIOLOGY | [address] | [address] | | + + + + + [...] | + + + + + | [facility] DEPARTMENT OF | [address] | [place] [address] | | | PATHOLOGY | [address] [...]
--- OUTSIDE RECORDS SUMMARY | ~2018-07-13 | XMS | Encounter Summary ---
Demographics + + + | Address | [address] | | | [place] [address] | + + + | Home Phone [...] [place] | | | | | [address] | | + + + + + Care Team Providers + +------+ + | Care Cake Inspector Name | Role | Phone | [...] | | | | PHYSICAL | [facility] [place] | [facility] | | | | | THERAPY | [address] | for Health | | | | | REFERRAL | Phone: | and Healing, | | | | | | [phone] | 1st floor | | | | | | Fax: | [place], [place] | | | | | | [phone] | [address] | | | | | | | Phone: | | | | | | | [phone] | | | | | | | Fax: | | | | | | | [phone] | +--------+--------+ + + + + Encounter [...] [facility]Note 2] | [facility] | | | | | [address] | [place], [place] | | | | | Mailcode: CH[facility] | [address] | | | | | [facility] | | | | | | and Healing, 1st | | | | | | floor [facility] [place] | | | | | | [address] | | | | | | [phone] | | | +--------+---------+ + + + [...] might be different fr om the original. [id number] KEVON WELCH Date of : 1940 Start [...] during ADLs History of Presenting Problem: Kevon Weclh is [...] request that all cancellations be made at [facility] t 24 hours in advance by calling [phone]. Our office is open 7am-6pm and there is a Future [employer] line 24 hours a day. Any appointment [...] change in their status. LENA RAIN PT [facility] RE[facility]IL[facility] SERVICES AND HAND THERAPY [address] Mailcode: [address] [facility], 1st [facility] [address] documented in this e ncounter [...] | [place] MANUAL THER | Routin | 09/01/2011 | Shoulder pain | | | TECH,1+GERHARD,EA 15 | e | 4:16 PM | | | | MIN | | PDT | | | + +--------+ + + + | [place] THERAPEUTIC | Routin | 09/01/2011 | Shoulder [...]
--- OUTSIDE RECORDS SUMMARY | ~2018-07-13 | XMS | Encounter Summary ---
Demographics + + + | Address | [address] | | | [place] [address] | + + + | Home Phone | | + + + | Preferred Language | Unknown | + + + | Marital Status | | + + + | Scientologist Affiliation | NON | + + + [...] [place] | | | | | [address] | | + + + + + Care Team Providers + +------+ + | Care Clinical Secretary Name | Role | Phone | [...] | Physical | Diagnoses | Sothern, | Nruy [facility] | | | | Therapy | Shoulder | VIANEY Alaniz | [address] | | | | | pain | [address] | [address] | | | | | Procedures | Ave | Mailcode: | | | | | PHYSICAL | [facility] [place] | [facility] | | | | | THERAPY | [address] | for Health | | | | | REFERRAL | Phone: | and Healing, | | | | | | [phone] | 1st floor | | | | | | Fax: | [place], [place] | | | | | | [phone] | [address] | | | | | | | Phone: | | | | | | | [phone] | | | | | | | Fax: | | | | | | | [phone] | +--------+--------+ + + + + Encounter [...] | [facility] | [facility] | | | | | [address] | [place], [place] | | | | | Mailcode: [facility] | [address] | | | | | [facility] | | | | | | and Healing, 1st | | | | | | floor [facility] [place] | | | | | | [address] | | | | | | [phone] | | | +--------+---------+ + + + [...] might be different fr om the original. [id number] KEVON WELCH Date of : 1940 Start of care: 07/24/11 Date of onset:07/22/11 Referring/Attending Practitioner: Misael Myers MD . Primary/Referral Diagnosis/ICD-9: Encounter Diagnoses Name Primary? Shoulder pain Yes Insurance: Payor: ODS MEDICARE Plan: ODS MEDICARE Product Type: PPO Service period from: 07/24/11-08/23/11 Number visits used/authorized: 3 [facility] PHYSICAL THERAPY: Post-op SHOULDER PO week 4 [...] request that all cancellations be made at [facility] 24 hours in advance by calling [phone]. Our office is open 7am-6pm and there is a [employer] ssage line 24 hours a day. Any [...] THERAPY [address] Mailcode: [address] [facility], [address] [place] [address] documented in this e ncounter Plan of Treatment Not on filedocumented as of this encounter Procedures + +--------+ + + + | Procedure Name | Priori | Date/Time | Associated Diagnosis | Comments | | | ty | | | | + +--------+ + + + | [place] MANUAL THER | Routin | 08/20/2011 | Shoulder pain | | | TECH,1+GERHARD,EA 15 | e | 12:40 PM | | | | MIN | | PDT | | | + +--------+ + + + | [place] THERAPEUTIC | Routin | 08/20/2011 | Shoulder [...]
--- OUTSIDE RECORDS SUMMARY | ~2018-07-13 | XMS | Encounter Summary ---
Demographics + + + | Address | [address] | | | [place] [address] | + + + | Home Phone [...] [place] | | | | | [address] | | + + + + + Care Team Providers + +------+ + | Care Cnc Machinist Name | Role | Phone | + [...] | | | | REFERRING | Dejan [place], | | | | | | PROVIDER PER | [place] | | | | | | [place] | [address] | | | | | | | Phone: | | | | | | | [phone] | | | | | | | Fax: | | | | | | | [phone] | +--------+--------+ + + + + Encounter Details +--------+---------+ + + + | Date | Type | Department | Care Team | Description | +--------+---------+ + + + | 06/29/ | Office | Preoperative | Lida Houser, | Shoulder pain | | 2011 | Visit | Medicine Clinic at | ANP [address] | (Primary Dx); Other | | | | [facility] 4th Floor [address] | specified | | | | [address] | [place], [place] | pre-operative | | | | Code: [facility] | [address] | examination; NELY | | | | for Health and | [phone] | (obstructive sleep | | | | Healing,4th Floor | | apnea) | | | | [place], [place] | | | | | | [address] | | | | | | [phone] | | | +--------+---------+ + + + [...] perfume, lotions or powder. Remove any nail citizen of [place] from at least one fingernail. Do not [...] Time: Someone from your surgeon's office or [facility] will provide you with information [...] it is after office hours, call the [facility] bow machine operator at [phone] and ask them to page your doc [...] patient. Document will be s canned in [employer]. Current Medication List Name Sig IBUPROFEN 200 [...] further investigation and manageme nt. A. Acute MA within 7 days: no B. Unstable angina/Recent MA (7- 30 days): no C. Decompensated CHF: [...] no Rate of cardiac , non fatal MA, non fatal cardiac arrest 0 risk factors [...] contribute to this patient's care. BRADFORD ALVES [facility] PREOPERATIVE MEDICINE CLINIC [address] [place] [address] [place] [address] Marilin Vang MA - 06/30/2011 2:19 PM PDT Nerve Block Home Pump Education: Total time spent during clinic visit in patient education 15 minutes. [facility] Department of Anesthesia, Regional Anesthesia patient information [...] + +--------+ + + + | [place] COLLECTION VENOUS | Routin | 06/30/2011 | [...] view image for the detailed interpretation from [employer] results. | CARDIOLOGY | + + + + + + + + | Performing | Address | City/State/Zipcode | Phone Number | | Organization | | | | + + + + + | [facility] | [address] | [place], [place] | | | CARDIOLOGY | [address] | [address] | | + + + + + [...] | + + + + + | [facility] DEPARTMENT OF | [address] | [place] [address] | | | PATHOLOGY | [address] [...]
--- OUTSIDE RECORDS SUMMARY | ~2018-07-13 | XMS | Clinical Summary ---
Demographics + + + | Address | [address] | | | [place] [address] | + + + | Home Phone | | + + + | Preferred Language | Unknown | + + + | Marital Status | | + + + | Alevism Affiliation | Unknown | + + + | Race | Unknown | + + + | Ethnic Group | Unknown | + + + Author + + + | Author | [facility] [employer] | + + + | Organization | [facility] [employer] | + + + | Address | [...] Team Providers + +------+ + | Care Plug Saw Operator Name | Role | Phone | [...] | MA - GENERIC | MA-GEN | [id number] | [employer] | | | | | [...] | | al/Fam | | 1941 | [phone] | [place] | | | lyla | | | [phone] | [address] | + +--------+ +--------+ + +
--- OUTSIDE RECORDS SUMMARY | ~2018-07-13 | XMS | Encounter Summary ---
Demographics + + + | Address | [address] | | | [place] [address] | + + + | Home Phone [...] [place] | | | | | [address] | | + + + + + Care Team Providers + +------+ + | Care Continuity Coordinator Name | Role | Phone | [...] | | | | | Procedures | [facility] | Mailcode: | | | | | PHYSICAL | Rd | [facility] | | | | | THERAPY | [place], [place] | for Health | | | | | REFERRAL | [address] | and Healing, | | | | | | | 1st floor | | | | | | | [place], [place] | | | | | | | [address] | | | | | | | Phone: | | | | | | | [phone] | | | | | | | Fax: | | | | | | | [phone] | +--------+--------+ + + + + Encounter [...] | [address] | [place], [place] | | | | | Mailcode: CH[facility] | [address] | | | | | [facility] | | | | | | and Ned, 1st | | | | | | floor [place], [place] | | | | | | [address] | | | | | | [phone] | | | +--------+---------+ + + + [...] [place] PT - 06/23/2013 8:58 AM PDT [id number] KEVON WELCH Date of : 1940 Start of care: 05/19/2013 Date of onset: 03/21/2013 Referring/Attending Practitioner: Misael Myers Primary/Referral Diagnosis/ICD-9: Shoulder pain (primary encounter diagnosis) Insurance: Payor: [employer] ODS MEDICARE Plan: [employer] ODS MEDICARE Product Type: P PO Service period from: 05/19/2013 to - Number visits used/authorized: 2/- [facility] PHYSICAL THERAPY TREATMENT - [...] home exercise program as pt lives in [place], [place], [place] for posterior do minant shoulder strength Frequency/Duration: Follow up prn due to pt living in [place], [place], [place] and traveling to [facility] for 4 weeks Treatment began: 899 Treatment ended: 944 This note is to serve as the discharge summary if Kevon fails to attend further Physical Th erapy appointments or contact the therapist regarding any change in their status. Alise [place], Pt [facility] RE[facility]ABIL[facility]ATION SERVICES AND HAND THERAPY [address] Mailcode: [place] [address] documented in this encounter Plan of Treatment Not on filedocumented as of this encounter Procedures + +--------+ + + + | Procedure Name | Priori | Date/Time | Associated Diagnosis | Comments | | | ty | | | | + +--------+ + + + | [place] MANUAL THER | Routin | 06/23/2013 | Shoulder pain | | | TECH,1+REGIONS,EA 15 | e | 10:22 AM | | | | MIN | | PDT | | | + +--------+ + + + | [place] THERAPEUTIC | Routin | 06/23/2013 | Shoulder [...]
--- OUTSIDE RECORDS SUMMARY | ~2018-07-13 | XMS | Encounter Summary ---
Demographics + + + | Address | [address] | | | [place] [address] | + + + | Home Phone [...] [place] | | | | | [address] | | + + + + + Care Team Providers + +------+ + | Care Solution Lead Name | Role | Phone | [...] | | | | | Procedures | [facility] | Mailcode: | | | | | PHYSICAL | Rd | [facility] | | | | | THERAPY | [place], [place] | for Health | | | | | REFERRAL | [address] | and Healing, | | | | | | | 1st floor | | | | | | | [place], [place] | | | | | | | [address] | | | | | | | Phone: | | | | | | | [phone] | | | | | | | Fax: | | | | | | | [phone] | +--------+--------+ + + + + Encounter [...] | [facility] | [address] | | | | | [address] | [place], [place] | | | | | Mailcode: [facility] | [address] | | | | | [facility] | | | | | | and Healing, 1st | | | | | | floor [place], [place] | | | | | | [address] | | | | | | [phone] | | | +--------+---------+ + + + [...] [place], PT - 08/11/2013 4:09 PM PDT [id number] KEVON WELCH Date of : 1940 Start of care: 05/19/2013 Date of onset: 03/21/2013 Referring/Attending Practitioner: Misael Myers Primary/Referral Diagnosis/ICD-9: Shoulder pain, right (primary encounter diagnosis) Insurance: Payor: [employer] MEDICARE Plan: [employer] Product Type: P PO Service period from: 05/19/2013 to - Number visits used/authorized: [facility] PHYSICAL THERAPY TREATMENT [...] Right 07/20/2013 Right 08/11/2013 Flexion 141 155 [id number]* [id number] Pre 125* Post 140 Abduction 146 150 [id number]* [id number] Pre 95* Post 132 ER at 90 [...] program as pt lives in [facility], [place] for posterior do minant shoulder strength Frequency/Duration: Follow up prn due to pt living in [facility], [place] Treatment began: 0407 pm Treatment ended: 0452 pm This note is to serve as the discharge summary if Kevon fails to attend further Physical Th erapy appointments or contact the therapist regarding any change in their status. Alise [place], PT [facility] REHABILITATION SERVICES AND HAND THERAPY [address] Mailcode: [place] [address] documented in this encounter Plan of Treatment Not on filedocumented as of this encounter Procedures + +--------+ + + + | Procedure Name | Priori | Date/Time | Associated Diagnosis | Comments | | | ty | | | | + +--------+ + + + | [place] MANUAL THER | Routin | 08/11/2013 | Shoulder pain, | | | TECH,1+REGIONS,EA 15 | e | 5:16 PM | right | | | MIN | | PDT | | | + +--------+ + + + | [place] THERAPEUTIC | Routin | 08/11/2013 | Shoulder [...]
--- OUTSIDE RECORDS SUMMARY | ~2018-07-13 | XMS | Encounter Summary ---
Demographics + + + | Address | [address] | | | [place] [address] | + + + | Home Phone [...] [place] | | | | | [address] | | + + + + + Care Team Providers + +------+ + | Care Patient Representative Name | Role | Phone | [...] | | shoulder | Provider Per | [address] | | | | | pain | Patient NO | [address] | | | | | | REFERRING | Rd [place], | | | | | | PROVIDER PER | [place] | | | | | | PT | [address] | | | | | | | Phone: | | | | | | | [phone] | | | | | | | Fax: | | | | | | | [phone] | +--------+--------+ + + + + Encounter Details +--------+---------+ + + + | Date | Type | Department | Care Team | Description | +--------+---------+ + + + | 04/27/ | Office | Orthopaedics at | Misael Myers MD | Shoulder pain | | 2011 | Visit | [facility] [address] | [address] | (Primary Dx); | | | | Ave Mailcode: [facility] | [address] | Rotator cuff | | | | [facility] | [place], [place] | tendinitis; | | | | and | [address] | Osteoarthrosis, | | | | Floor [place], [place] | [phone] | unspecified whether | | | | [address] | | generalized or | | | | [phone] | | localized, shoulder | | | [...] S: Pt undergoing PT at clinic in [place] 200 miles from here; has been seen [...] RX as appropriate LENA RAIN PT [facility] [address] Mailcode: [facility], [address] [place] [address] Misael Vega MD - 04/28/2011 11:09 [...]
--- OUTSIDE RECORDS SUMMARY | ~2018-07-13 | XMS | Encounter Summary ---
Demographics + + + | Address | [address] | | | [place] [address] | + + + | Home Phone [...] [place] | | | | | [address] | | + + + + + Care Team Providers + +------+ + | Care Harbor Master Name | Role | Phone | + [...] + + | 07/21/ | Telephone | [facility] | Maddie Luna, | Other (home pump- | | 2011 | | Pain Center at | BOOK AGENT [address] | patient initiated) | | | | [facility] | [place], [place] | | | | | [address] | [address] | | | | | Mail Code: [facility] | [phone] | | | | | [facility] | | | | | | and | | | | | | Floor [place], [place] | | | | | | [address] | | | | | | [phone] | | | +--------+ + + + [...]
--- OUTSIDE RECORDS SUMMARY | ~2018-07-13 | XMS | Encounter Summary ---
Demographics + + + | Address | [address] | | | [place] [address] | + + + | Home Phone [...] [place] | | | | | [address] | | + + + + + Care Team Providers + +------+ + | Care Retail Attendant Name | Role | Phone | [...] | | | | | Procedures | [facility] | Mailcode: | | | | | PHYSICAL | Rd | [facility] | | | | | THERAPY | [place], [place] | for Health | | | | | REFERRAL | [address] | and Healing, | | | | | | | 1st floor | | | | | | | [place], [place] | | | | | | | [address] | | | | | | | Phone: | | | | | | | [phone] | | | | | | | Fax: | | | | | | | [phone] | +--------+--------+ + + + + Encounter Details +--------+---------+ + + + | Date | Type | Department | Care Team | Description | +--------+---------+ + + + | 08/30/ | Office | [place] Physical | Rupesh, | Shoulder pain, right | | 2013 | Visit | Therapy Services at | Alise, PT [address] | (Primary Dx) | | | | [facility] | [address] | | | | | [address] | [place], [place] | | | | | Mailcode: [facility] | [address] | | | | | [facility] | | | | | | and Healing, 1st | | | | | | floor [place], [place] | | | | | | [address] | | | | | | [phone] | | | +--------+---------+ + + + [...] might be different from the o saul. [id number] KEVON WELCH Date of : 1940 Start of care: 05/19/2013 Date of onset: 03/21/2013 Referring/Attending Practitioner: Misael Myers Primary/Referral Diagnosis/ICD-9: Shoulder pain, right (primary encounter diagnosis) Insurance: Payor: [employer] MEDICARE Plan: [employer] Product Type: P PO Service period from: 05/19/2013 to 01/18/2014 Number visits used/authorized: 07/[address] [facility] PHYSICAL THERAPY TREATMENT - ORTHO SUBJECTIVE: Current: [...] Right 07/20/2013 Right 08/11/2013 Flexion 141 155 [id number]* [id number] Pre 125* Post 140 Abduction 146 150 [id number]* [id number] Pre 95* Post 132 ER at 90 [...] home exercise program as pt lives in [facility], [place] for posterior do minant shoulder strength Frequency/Duration: Follow up prn due to pt living in [facility], [place] Treatment began: 1100 am Treatment [...] in the student's note. Alise [place], PT [facility] RE[facility]IL[facility]ATION SERVICES AND HAND THERAPY [address] Mailcode: [place] [address] documented in this encounter Plan of Treatment Not on filedocumented as of this encounter Procedures + +--------+ + + + | Procedure Name | Priori | Date/Time | Associated Diagnosis | Comments | | | ty | | | | + +--------+ + + + | CT MANUAL THER | Routin | 08/30/2013 | Shoulder pain, | | | TECH,1+REGIONS,EA 15 | e | 1:58 PM | right | | | MIN | | PDT | | | + +--------+ + + + | CT THERAPEUTIC | Routin | 08/30/2013 | Shoulder [...]
--- OUTSIDE RECORDS SUMMARY | ~2018-07-13 | XMS | Encounter Summary ---
Demographics + + + | Address | [address] | | | [place] [address] | + + + | Home Phone [...] [place] | | | | | [address] | | + + + + + Care Team Providers + +------+ + | Care Manager Cardiovascular Name | Role | Phone | + [...] W | appointment | | | | [facility] | [address] | | | | | [address] | [place], [place] | | | | | Mailcode: [facility] | [address] | | | | | [facility] | | | | | | and Healing, 1st | | | | | | floor [place], [place] | | | | | | [address] | | | | | | [phone] | | | +--------+ + + + [...]
--- OUTSIDE RECORDS SUMMARY | ~2018-07-13 | XMS | Encounter Summary ---
Demographics + + + | Address | [address] | | | [place] [address] | + + + | Home Phone [...] [place] | | | | | [address] | | + + + + + Care Team Providers + +------+ + | Care Drawer Maker Name | Role | Phone | [...] | | | | | Procedures | [facility] | Mailcode: | | | | | PHYSICAL | Rd | [facility] | | | | | THERAPY | [place], [place] | for Health | | | | | REFERRAL | [address] | and Healing, | | | | | | | 1st floor | | | | | | | [place], [place] | | | | | | | [address] | | | | | | | Phone: | | | | | | | [phone] | | | | | | | Fax: | | | | | | | [phone] | +--------+--------+ + + + + Encounter [...] [facility] | [address] | | | | | [address] | [place], [place] | | | | | Mailcode: [facility] | [address] | | | | | [facility] | | | | | | and Healing, 1st | | | | | | floor [place], [place] | | | | | | [address] | | | | | | [phone] | | | +--------+---------+ + + + [...] Washington, PT - 11/16/2013 11:25 AM PDT [id number] KEVON WELCH Date of : 1940 Start of care: 05/19/2013 Date of onset: 03/21/2013 Referring/Attending Practitioner: Misael Myers Primary/Referral Diagnosis/ICD-9: Shoulder pain, right (primary encounter diagnosis) Insurance: Payor: [employer] MEDICARE Plan: [employer] MEDICARE Product Type: P PO Service period from: 05/19/2013 to 01/18/2014 Number visits used/authorized: 10/21 [facility] PHYSICAL THERAPY TREATMENT - [...] Right 09/22 Right/Left 10/18/2013 Flexion 141 155 [id number]* [id number] Pre 125* Post 140 145 145/150 Abduction 146 150 bus790* ggmp139 Pre 95* Post 132 144 140/145 ER [...] home exercise program as pt lives in [place], [place] for posterior do minant shoulder strength Frequency/Duration: Follow up prn due to pt living in [facility], [place] Treatment began: 1125 am Treatment ended: 1210 pm This note is to serve as the discharge summary if Kevon fails to attend further Physical Th erapy appointments or contact the therapist regarding any change in their status. Alise Washington, PT [facility] AND HAND THERAPY [address] Mailcode: [place] [address] documented in this encounter Plan of Treatment Not on filedocumented as of this encounter Procedures + +--------+ + + + | Procedure Name | Priori | Date/Time | Associated Diagnosis | Comments | | | ty | | | | + +--------+ + + + | PA MANUAL THER | Routin | 11/16/2013 | Shoulder pain, | | | TECH,1+REGIONS,EA 15 | e | 12:50 PM | right | | | MIN | | PDT | | | + +--------+ + + + | PA THERAPEUTIC | Routin | 11/16/2013 | Shoulder [...]
--- OUTSIDE RECORDS SUMMARY | ~2018-07-13 | XMS | Encounter Summary ---
Demographics + + + | Address | [address] | | | [place] [address] | + + + | Home Phone [...] [place] | | | | | [address] | | + + + + + Care Team Providers + +------+ + | Care Boiling Off Winder Name | Role | Phone | + [...] | | | | | THERAPY | [address] | for Health | | | | | REFERRAL | Phone: | and Healing, | | | | | | [phone] | 1st floor | | | | | | Fax: | [place], [place] | | | | | | [phone] | [address] | | | | | | | Phone: | | | | | | | [phone] | | | | | | | Fax: | | | | | | | [phone] | +--------+--------+ + + + + Encounter Details +--------+---------+ + + + | Date | Type | Department | Care Team | Description | +--------+---------+ + + + | 09/04/ | Office | [facility] | Lena Rain, | Shoulder pain | | 2011 | Visit | Therapy Services at | PT [address] | (Primary Dx) | | | | [facility] | [facility] [address] | | | | | [address] | [place], [place] | | | | | Mailcode: [facility] | [address] | | | | | [facility] | | | | | | and Healing, 1st | | | | | | floor [facility] [place] | | | | | | [address] | | | | | | [phone] | | | +--------+---------+ + + + [...] might be different fr om the original. [id number] KEVON WELCH Date of : 1940 Start of care: 07/24/11 Date of onset:07/22/11 Referring/Attending Practitioner: Misael Myers MD . Primary/Referral Diagnosis/ICD-9: Encounter Diagnoses Name Primary? Shoulder pain Yes Insurance: Payor: ODS MEDICARE Plan: ODS MEDICARE Product Type: PPO Service period from: 08/24/11-10/23/11 Number visits used/authorized: 6 [facility] PHYSICAL THERAPY: Post-op SHOULDER PO [...] that all cancellations be made at [facility] 24 hours in advance by calling [phone]. Our office is open 7am-6pm and there is a Offers[employer]comge line 24 hours a day. Any appointment [...] their status. LENA RAIN PT [facility] REHABILITATION SERVICES AND HAND THERAPY [address] Mailcode: [address] [address] documented in this e ncounter Plan of Treatment Not on filedocumented as of this encounter Procedures + +--------+ + + + | Procedure Name | Priori | Date/Time | Associated Diagnosis | Comments | | | ty | | | | + +--------+ + + + | [facility] MANUAL THER | Routin | 09/08/2011 | Shoulder pain | | | TECH,1+GERHARD,EA 15 | e | 10:41 AM | | | | MIN | | PDT | | | + +--------+ + + + | [facility] THERAPEUTIC | Routin | 09/08/2011 | Shoulder [...]
--- OUTSIDE RECORDS SUMMARY | ~2018-07-13 | XMS | Clinical Summary ---
Demographics + + + | Address | [address] | | | [place] [address] | + + + | Home Phone | | + + + | Preferred Language | Unknown | + + + | Marital Status | | + + + | Oriental Orthodox Affiliation | Unknown | + + + | Race | Unknown | + + + | Ethnic Group | Unknown | + + + Author + + + | Author | [facility] | | | and Audieana | + + + | Organization | [facility] | | | and [place] [...] [place] | | | | | [address] | | + + + + + Care Team Providers + +------+ + | Care Florist'S Decorator Name | Role | Phone | + [...] | [employer] | [facility] | [id number] | 02/09/19 | | | Medica | [...] | | al/Fam | | 1941 | [phone] | [place] [address] | | | lyla | | | 7 (Home) | | + +--------+ +--------+ + + Advance Directives Patient has advance care planning documents on file. For more information, please contact:[facility] [place] [address]
--- OUTSIDE RECORDS SUMMARY | ~2018-07-13 | XMS | Encounter Summary ---
Demographics + + + | Address | [address] | | | [place] [address] | + + + | Home Phone | | + + + | Preferred Language | Unknown | + + + | Marital Status | | + + + | Scientology Affiliation | NON | + + + | Race | White | + + + | Ethnic Group | Not or | + + + Author + + + | Author | [facility] | + + + | Organization | [facility] | + + + | Address | Unknown | + + + | Phone | Unavailable | + + + Support + + + + + | Name | Relationship | Address | Phone | + + + + + | Elizabeth Welch | ECON | [address] | | | | | [place] | | | | | [address] | | + + + + + Care Team Providers + +------+ + | Care Education Managers Name | Role | Phone | + [...] | | | | | THERAPY | [place], [place] | for Health | | | | | REFERRAL | [address] | and Healing, | | | | | | Phone: | 1st floor | | | | | | [phone] | [place], [place] | | | | | | Fax: | [address] | | | | | | [phone] | Phone: | | | | | | | [phone] | | | | | | | Fax: | | | | | | | [phone] | +--------+--------+ + + + + Reason [...] | | | [place], | [place] | [address] | | | | | unspecified | | Phone: | | | | | whether | | [phone] | | | | | generalized | | Fax: | | | | | or | | [phone] | | | | | localized, | [...] | | | | | | | SURFACING TECHNICIAN | | | | | | | [place] SHLDR | | | | | | | ARTHROSCOP,P | | | | | | | ART | | | | | | | ACROMIOPLAS | | | | | | | W/CORACOACRO | | | | | | | M [place] SHLDR | | | | | | | ARTHROSCOP,S | | | | | | | URG,DIS | | | | | | | CLAVICULECTO | | | | | | | MY [place] | | | | | | | [...] pain | | 2011 | Visit | [facility] [address] | [address] | (Primary Dx) | | | | Ave Mailcode: CH12A | [facility], | | | | | [facility] | [place] [address] | | | | | and Healing, | [phone] | | | | | Floor [place], [place] | | | | | | [address] | | | | | | [phone] | | | +--------+---------+ + + + [...]
--- OUTSIDE RECORDS SUMMARY | ~2018-07-13 | XMS | Encounter Summary ---
Demographics + + + | Address | [address] | | | [place] [address] | + + + | Home Phone [...] [place] | | | | | [address] | | + + + + + Care Team Providers + +------+ + | Care Inspector And Sorter Name | Role | Phone | [...] + + | 07/21/ | Telephone | [facility] Sinclair | Maddie Luna, | Other (home pump- | | 2011 | | Pain Center at | [facility] [address] | patient initiated) | | | | [facility] | [place], [place] | | | | | [address] | [address] | | | | | Mail Code: [facility] | [phone] | | | | | [facility] | | | | | | and | | | | | | Floor [place], [place] | | | | | | [address] | | | | | | [phone] | | | +--------+ + + + [...]
--- OUTSIDE RECORDS SUMMARY | ~2018-07-13 | XMS | Encounter Summary ---
Demographics + + + | Address | [address] | | | [place] [address] | + + + | Home Phone [...] | + + + + + | Elizaebth Welch | ECON | [address] | | | | | [place] | | | | | [address] | | + + + + + [...] | | | | | THERAPY | [address] | for Health | | | | | REFERRAL | Phone: | and Healing, | | | | | | [phone] | 1st floor | | | | | | Fax: | [place], [place] | | | | | | [phone] | [address] | | | | | | | Phone: | | | | | | | [phone] | | | | | | | Fax: | | | | | | | [phone] | +--------+--------+ + + + + Encounter [...] | | [facility] | [address] | | | | | [address] | [place], [place] | | | | | Mailcode: CH3P | [address] | | | | | [facility] | | | | | | and Healing, 1st | | | | | | floor [facility] [place] | | | | | | [address] | | | | | | [phone] | | | +--------+---------+ + + + [...] PDTFormatting of this note might be different [facility] the original. [id number] KEVON WELCH Date of : 1940 Start of care: 02/13/2011 Date of onset: 12/24/2010 Referring/Attending Practitioner: Misael Myers MD . Primary/Referral Diagnosis/ICD-9: Encounter Diagnoses Name Primary? 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 PHILLY RAIN, PT [facility] REHABILITATION SERVICES AND HAND THERAPY [address] Mail[facility]: [facility], 1st [facility] [address] Philly Killian PT - 05/12/2011 9:14 AM PDT 04/28/11 PT Encounter Note: Kevon Welch 70 yrs, Male, 1940 PCP: DOYLE JOHNSON Ref: NO REFERRING PROVIDER PER PATIENT, Primary Ins.: ODS MEDI Pt seen briefly in [facility] by PT per Dr. Acevedo request: Not charged S: Pt undergoing PT at clinic in [place] 200 miles from here; has been seen [...] modify RX as appropriate PHILLY RAIN PT [facility] [address] Mailcode: Ch12a [facility], 12th [facility] [address] + NEERS. + Telles, + Hornblowers [...] + | [place] THERAPEUTIC | Routin | 05/15/2011 | Shoulder [...]
--- OUTSIDE RECORDS SUMMARY | ~2018-07-13 | XMS | Encounter Summary ---
Demographics + + + | Address | [address] | | | [place] [address] | + + + | Home Phone [...] [place] | | | | | [address] | | + + + + + Care Team Providers + +------+ + | Care Capping Machine Operator Name | Role | Phone [...] MD | | | 2011 | | [place] [address] | [address] [facility] | | | | | [place] Mailcode: CH12A | [address] | | | | | [place] for [facility] | [place], [place] | | | | | and | [address] | | | | | Floor [place], [place] | [phone] | | | | | [address] | | | | | | [phone] | | | +--------+ + + + [...]
--- OUTSIDE RECORDS SUMMARY | ~2018-07-13 | XMS | Encounter Summary ---
Demographics + + + | Address | [address] | | | [place] [address] | + + + | Home Phone [...] [place] | | | | | [address] | | + + + + + Care Team Providers + +------+ + | Care Clinical Pharmacist Name | Role | Phone | + [...] | | | | | PHYSICAL | [place], [place] | [address] | | | | | THERAPY | [address] | for Health | | | | | REFERRAL | Phone: | and Healing, | | | | | | [phone] | 1st floor | | | | | | Fax: | [place], [place] | | | | | | [phone] | [address] | | | | | | | Phone: | | | | | | | [phone] | | | | | | | Fax: | | | | | | | [phone] | +--------+--------+ + + + + Encounter [...] | | | [facility] | [address] | | | | | [address] | [place], [place] | | | | | Mailcode: CH3 | [address] | | | | | [facility] | | | | | | and Ned, 1st | | | | | | floor [place], [place] | | | | | | [address] | | | | | | [phone] | | | +--------+---------+ + + + [...] might be different fr om the original. [id number] KEVON WELCH Date of : 1940 Start of care: 07/24/11 Date of onset:07/22/11 Referring/Attending Practitioner: Misael Myers MD . Primary/Referral Diagnosis/ICD-9: Encounter Diagnoses Name Primary? Shoulder pain Yes Insurance: Payor: ODS MEDICARE Plan: ODS MEDICARE Product Type: PPO Service period from: 07/24/11-08/23/11 Number visits used/authorized: 1 [facility] PHYSICAL THERAPY: Post-op SHOULDER POST OP [...] request that all cancellations be made at [facility] 24 hours in advance by calling [phone]. Our office is open 7am-6pm and there is a [employer] ssage line 24 hours a day. Any [...] change in their status. PHILLY RAIN PT [facility] REHABILITATION SERVICES AND HAND THERAPY [address] Mailcode: [address] And [facility], [address] [place] [address] documented in [...] + | [facility] TH[facility] | Routin | 07/24/2011 | Shoulder pain | | | ACTIVITIES | e | 4:38 PM | | | | | | PDT | | | + +--------+ + + + | [facility] THER[facility]UT[facility] | Routin | 07/24/2011 | Shoulder pain | | | EXERCISES | e | 4:38 PM | | | | | | PDT | | | + +--------+ + + + | [facility] PHYS [facility]APY | Routin | 07/24/2011 | [...]
--- OUTSIDE RECORDS SUMMARY | ~2018-07-13 | XMS | Encounter Summary ---
Demographics + + + | Address | [address] | | | [place] [address] | + + + | Home Phone [...] [place] | | | | | [address] | | + + + + + Care Team Providers + +------+ + | Care Road Manager Name | Role | Phone | [...] + + | 07/21/ | Hospital | [facility] | Misael Myers MD | | | 2011 | Encounter | [facility] [address] | [address] | | | | | [facility] | [facility] | | | | | FOR HEALTH AND | [place], [place] | | | | | [facility], | [address] | | | | | [place] [address] | [phone] | | | | | [phone] | | | +--------+ + + + [...]
--- OUTSIDE RECORDS SUMMARY | ~2018-07-13 | XMS | Encounter Summary ---
Demographics + + + | Address | [address] | | | [place] [address] | + + + | Home Phone [...] [place] | | | | | [address] | | + + + + + Care Team Providers + +------+ + | Care Crankshaft Balancer Name | Role | Phone | + [...] | | | | | Procedures | [facility] | Mailcode: | | | | | PHYSICAL | Rd | [facility] | | | | | THERAPY | [place], [place] | for Health | | | | | REFERRAL | [address] | and Healing, | | | | | | | 1st floor | | | | | | | [place], [place] | | | | | | | [address] | | | | | | | Phone: | | | | | | | [phone] | | | | | | | Fax: | | | | | | | [phone] | +--------+--------+ + + + + Encounter [...] [facility] | [address] | | | | | [address] | [place], [place] | | | | | Mailcode: [facility] | [address] | | | | | [facility] | | | | | | and Healing, 1st | | | | | | floor [place], [place] | | | | | | [address] | | | | | | [phone] | | | +--------+---------+ + + + [...] Washington, PT - 08/11/2013 4:09 PM PDT [id number] KEVON WELCH Date of : 1940 Start of care: 05/19/2013 Date of onset: 03/21/2013 Referring/Attending Practitioner: Misael Myers Primary/Referral Diagnosis/ICD-9: Shoulder pain, right (primary encounter diagnosis) Insurance: Payor: [employer] MEDICARE Plan: [employer] MEDICARE Product Type: P PO Service period from: 05/19/2013 to - Number visits used/authorized: [facility] PHYSICAL THERAPY TREATMENT - ORTHO SUBJECTIVE: Current: [...] Right 07/20/2013 Right 08/11/2013 Flexion 141 155 dpp806* izqh755 Pre 125* Post 140 Abduction 146 150 lkj850* kcir524 Pre 95* Post 132 ER at 90 [...] exercise program as pt lives in [facility], [place] for posterior do minant shoulder strength Frequency/Duration: Follow up prn due to pt living in [facility], [place] Treatment began: 0407 pm Treatment ended: 0452 pm This note is to serve as the discharge summary if Kevon fails to attend further Physical Th erapy appointments or contact the therapist regarding any change in their status. Alise [place], PT [facility]IL[facility] AND HAND THERAPY [address] Mailcode: [place] [address] documented in this encounter Plan of Treatment Not on filedocumented as of this encounter Procedures + +--------+ + + + | Procedure Name | Priori | Date/Time | Associated Diagnosis | Comments | | | ty | | | | + +--------+ + + + | [place] MANUAL THER | Routin | 08/11/2013 | Shoulder pain, | | | TECH,1+REGIONS,EA 15 | e | 5:16 PM | right | | | MIN | | PDT | | | + +--------+ + + + | [place] THERAPEUTIC | Routin | 08/11/2013 | Shoulder [...]
--- OUTSIDE RECORDS SUMMARY | ~2018-07-13 | XMS | Encounter Summary ---
Demographics + + + | Address | [address] | | | [place] [address] | + + + | Home Phone [...] [place] | | | | | [address] | | + + + + + Care Team Providers + +------+ + | Care Women'S Swim Coach Name | Role | Phone | + +------+ + | Doyel Johnson MD | PCP | | + [...] | | | | | THERAPY | [place], [place] | for Health | | | | | REFERRAL | [address] | and Healing, | | | | | | | 1st floor | | | | | | | [place], [place] | | | | | | | [address] | | | | | | | Phone: | | | | | | | [phone] | | | | | | | Fax: | | | | | | | [phone] | +--------+--------+ + + + + Encounter [...] (Primary Dx) | | | | [facility] | [address] | | | | | [address] | [place], [place] | | | | | Mailcode: [facility] | [address] | | | | | [facility] | | | | | | and Healing, 1st | | | | | | floor [place], [place] | | | | | | [address] | | | | | | [phone] | | | +--------+---------+ + + + [...] might be different from the o prabhainal. [id number] KEVON WELCH Date of : 1940 Start of care: 05/19/2013 Date of onset: 03/21/2013 Referring/Attending Practitioner: Misael Myers Primary/Referral Diagnosis/ICD-9: Shoulder pain, right (primary encounter diagnosis) Insurance: Payor: [employer] MEDICARE Plan: [employer] MEDICARE Product Type: P PO Service period from: 05/19/2013 to 01/18/2014 Number visits used/authorized: 06/20 [facility] PHYSICAL THERAPY TREATMENT - [...] Right 07/20/2013 Right 08/11/2013 Flexion 141 155 [id number]* [id number] Pre 125* Post 140 Abduction 146 150 nqv700* acoz493 Pre 95* Post 132 ER at 90 [...] program as pt lives in [facility], [place] for posterior do minant shoulder strength Frequency/Duration: Follow up prn due to pt living in [facility], [place] Treatment began: 1031 am Treatment ended: [...] in the student's note. Alise [place], PT [facility] AND HAND THERAPY [address] Mailcode: [place] [address] documented in this encounter Plan of Treatment Not on filedocumented as of this encounter Procedures + +--------+ + + + | Procedure Name | Priori | Date/Time | Associated Diagnosis | Comments | | | ty | | | | + +--------+ + + + | [place] MANUAL THER | Routin | 08/18/2013 | Shoulder pain, | | | TECH,1+REGIONS,EA 15 | e | 6:01 PM | right | | | MIN | | PDT | | | + +--------+ + + + | [place] THERAPEUTIC | Routin | 08/18/2013 | Shoulder [...]
--- OUTSIDE RECORDS SUMMARY | ~2018-07-13 | XMS | Encounter Summary ---
Demographics + + + | Address | [address] | | | [place] [address] | + + + | Home Phone [...] [place] | | | | | [address] | | + + + + + Care Team Providers + +------+ + | Care Windshield Technician Name | Role | Phone | [...] | | shoulder | Provider Per | [address] | | | | | pain | Patient NO | [address] | | | | | | REFERRING | [address], | | | | | | PROVIDER PER | [place] | | | | | | [place] | [address] | | | | | | | Phone: | | | | | | | [phone] | | | | | | | Fax: | | | | | | | [phone] | +--------+--------+ + + + + Encounter Details +--------+---------+ + + + | Date | Type | Department | Care Team | Description | +--------+---------+ + + + | 06/29/ | Office | Orthopaedics at | Misael Myers MD | Shoulder pain | | 2011 | Visit | [facility] [address] | [address] | (Primary Dx) | | | | Ave Mailcode: CH12A | [address] | | | | | [place] for [facility] | [place], [place] | | | | | and , | [address] | | | | | Floor [place], [place] | [phone] | | | | | [address] | | | | | | [phone] | | | +--------+---------+ + + + [...]
--- OUTSIDE RECORDS SUMMARY | ~2018-07-13 | XMS | Encounter Summary ---
Demographics + + + | Address | [address] | | | [place] [address] | + + + | Home Phone [...] [place] | | | | | [address] | | + + + + + Care Team Providers + +------+ + | Care Call Center Support Consultant Name | Role | Phone | [...] | follow up) | | | | [facility] | | | | | | [address] | | | | | | Mail Code: CH15P | | | | | | [facility] | | | | | | and Healing, | | | | | | Floor [place], [place] | | | | | | [address] | | | | | | [phone] | | | +--------+ + + + [...]
--- OUTSIDE RECORDS SUMMARY | ~2018-07-13 | XMS | Encounter Summary ---
Demographics + + + | Address | [address] | | | [place] [address] | + + + | Home Phone [...] [place] | | | | | [address] | | + + + + + Care Team Providers + +------+ + | Care Band Machine Operator Name | Role | Phone [...] | | Procedures | [facility] | Mailcode: | | | | | PHYSICAL | Rd | [facility] | | | | | THERAPY | [place], [place] | for Health | | | | | REFERRAL | [address] | and Healing, | | | | | | | 1st floor | | | | | | | [place], [place] | | | | | | | [address] | | | | | | | Phone: | | | | | | | [phone] | | | | | | | Fax: | | | | | | | [phone] | +--------+--------+ + + + + Encounter [...] [facility] [place] | [address] | | | | | [address] | [place], [place] | | | | | Mailcode: [facility] | [address] | | | | | [facility] | | | | | | and Healing, 1st | | | | | | floor [place], [place] | | | | | | [address] | | | | | | [phone] | | | +--------+---------+ + + + [...] [place], PT - 01/18/2014 10:57 AM PST [id number] KEVON WELCH Date of : 1940 Start of care: 05/19/2013 Date of onset: 03/21/2013 Referring/Attending Practitioner: Misael Myers Primary/Referral Diagnosis/ICD-9: Shoulder pain, right (primary encounter diagnosis) Insurance: Payor: [employer] MEDICARE Plan: [employer] MEDICARE Product Type: P PO Service period from: 05/19/2013 to 01/18/2014 Number visits used/authorized: 11/20 [facility] PHYSICAL THERAPY TREATMENT - ORTHO SUBJECTIVE: Current: [...] Right/Left 10/18/2013 Right 01/18/2014 Flexion 141 155 [id number]* [id number] Pre 125* Post 140 145 145/150 156 Abduction 146 150 [id number]* [id number] Pre 95* Post 132 144 140/145 150 [...] end of session. 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 Pt will be discharged to [facility] t home exercise program at [...] change in their status. Alise [place], PT [facility]ABIL[facility] SERVICES AND HAND THERAPY [address] Mailcode: [place] [address] documented in this encounter Plan of Treatment Not on filedocumented as of this encounter Procedures + +--------+ + + + | Procedure Name | Priori | Date/Time | Associated Diagnosis | Comments | | | ty | | | | + +--------+ + + + | [place] MANUAL THER | Routin | 01/18/2014 | Shoulder pain, | | | TECH,1+REGIONS,EA 15 | e | 1:58 PM | right | | | MIN | | PST | | | + +--------+ + + + | [place] THERAPEUTIC | Routin | 01/18/2014 | Shoulder [...]
--- OUTSIDE RECORDS SUMMARY | ~2018-07-13 | XMS | Encounter Summary ---
Demographics + + + | Address | [address] | | | [place] [address] | + + + | Home Phone [...] [place] | | | | | [address] | | + + + + + Care Team Providers + +------+ + | Care Interior Design Faculty Member Name | Role | Phone | + [...] | | Therapy | Shoulder | MD Goryd | [address] | | | | | pain | [address] | [address] [place] | | | | | Procedures | [facility] | Mailcode: | | | | | PHYSICAL | Rd | [facility] | | | | | THERAPY | [place], [place] | for Health | | | | | REFERRAL | [address] | and Healing, | | | | | | | 1st floor | | | | | | | [place], [place] | | | | | | | [address] | | | | | | | Phone: | | | | | | | [phone] | | | | | | | Fax: | | | | | | | [phone] | +--------+--------+ + + + + Encounter [...] | | [facility] | [address] | | | | | [address] | [place], [place] | | | | | Mailcode: [facility] | [address] | | | | | [facility] | | | | | | and Healing, 1st | | | | | | floor [place], [place] | | | | | | [address] | | | | | | [phone] | | | +--------+---------+ + + + [...] [place], PT - 01/18/2014 10:57 AM PST [id number] KEVON WELCH Date of : 1940 Start of care: 05/19/2013 Date of onset: 03/21/2013 Referring/Attending Practitioner: Misael Myers Primary/Referral Diagnosis/ICD-9: Shoulder pain, right (primary encounter diagnosis) Insurance: Payor: [employer] MEDICARE Plan: [employer] MEDICARE Product Type: P PO Service period from: 05/19/2013 to 01/18/2014 Number visits used/authorized: 11/20 [facility] PHYSICAL THERAPY TREATMENT - ORTHO SUBJECTIVE: Current: [...] Right/Left 10/18/2013 Right 01/18/2014 Flexion 141 155 [id number]* [id number] Pre 125* Post 140 145 145/150 156 Abduction 146 150 [id number]* [id number] Pre 95* Post 132 144 140/145 150 [...] end of session. 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 Pt will be discharged to [facility] t home exercise program at [...] change in their status. Alise [place], PT [facility] REHABILITATION SERVICES AND HAND THERAPY [address] Cro[address] Mailcode: [place] [address] documented in this encounter Plan of Treatment Not on filedocumented as of this encounter Procedures + +--------+ + + + | Procedure Name | Priori | Date/Time | Associated Diagnosis | Comments | | | ty | | | | + +--------+ + + + | [place] MANUAL THER | Routin | 01/18/2014 | Shoulder pain, | | | TECH,1+REGIONS,EA 15 | e | 1:58 PM | right | | | MIN | | PST | | | + +--------+ + + + | [place] THERAPEUTIC | Routin | 01/18/2014 | Shoulder [...]
--- OUTSIDE RECORDS SUMMARY | ~2018-07-13 | XMS | Encounter Summary ---
Demographics + + + | Address | [address] | | | [place] [address] | + + + | Home Phone [...] [place] | | | | | [address] | | + + + + + Care Team Providers + +------+ + | Care Fire Prevention Research Engineer Name | Role | Phone [...] | | | 2011 | Event | [facility] | TOWER CRANE OPERATOR [address] | | | | | and Healing Surgery | [facility] | | | | | Center Admitting | [place], [place] | | | | | Desk Located on the | [address] | | | | | 4th floor [address] | [phone] | | | | | [address] [place], | | | | | | [place] [address] | | | +--------+ + + + + Anesthesia Record + + + + + | Procedure Name | Responsible | Anesthesia Start | Anesthesia Stop Time | | | Anesthesiologist | Time | | + + + + + | CRIS | Misael De uLna MD, DMD | 07/22/11 0702 | 07/22/11 [...] nerve | Cannot be | | block ([facility], Single, I-Flow pump) | calculated | [...]
--- OUTSIDE RECORDS SUMMARY | ~2018-07-13 | XMS | Encounter Summary ---
Demographics + + + | Address | [address] | | | [place] [address] | + + + | Home Phone [...] Team Providers + +------+ + | Care Lawn Mower Mechanic Name | Role | Phone | [...] | | sprain | REFERRING | Rd [place], | | | | | Osteoarthros | PROVIDER PER | [place] | | | | | [place], | [place] | [address] | | | | | unspecified | | Phone: | | | | | whether | | [phone] | | | | | generalized | | Fax: | | | | | or | | [phone] | | | | | localized, | [...] | | | | | | | CAMPGROUND ATTENDANT | | | | | | | HI SHLDR | | | | | | | ARTHROSCOP,P | | | | | | | ART | | | | | | | ACROMIOPLAS | | | | | | | W/CORACOACRO | | | | | | | M HI SHLDR | | | | | | | ARTHROSCOP,S | | | | | | | URG,DIS | | | | | | | CLAVICULECTO | | | | | | | MY HI | | | | | | | [...] | | | Ave Mailcode: CH12A | [place], [place] | | | | | [facility] | [address] | | | | | and [facility] | [phone] | | | | | Floor [place], [place] | | | | | | [address] | | | | | | [phone] | | | +--------+---------+ + + + [...]
--- OUTSIDE RECORDS SUMMARY | ~2018-07-13 | XMS | Encounter Summary ---
Demographics + + + | Address | [address] | | | [place] [address] | + + + | Home Phone [...] [place] | | | | | [address] | | + + + + + Care Team Providers + +------+ + | Care Java Web Application Developer Name | Role | Phone | [...] | | shoulder | Provider Per | [address] | | | | | pain | Patient NO | [address]ales | | | | | | REFERRING | Dejan Onofre | | | | | | PROVIDER PER | [place] | | | | | | [place] | [address] | | | | | | | Phone: | | | | | | | [phone] | | | | | | | Fax: | | | | | | | [phone] | +--------+--------+ + + + + Encounter Details +--------+---------+ + + + | Date | Type | Department | Care Team | Description | +--------+---------+ + + + | 06/29/ | Office | Orthopaedics at | Katty Chairez PA | Other specified | | 2011 | Visit | [facility] [address] | [address] | pre-operative | | | | Ave Mailcode: CH12A | [place], [place] | examination (Primary | | | | [place] [facility] | [address] | Dx) | | | | and Healing, 12th | [phone] | | | | | Floor [place], [place] | | | | | | [address] | | | | | | [phone] | | | +--------+---------+ + + + [...] take place on the hill at the [facility]: Surgeries scheduled in the [facility] (4 North): registration is located on the 4th floor of [facility] (Day Surgery). Surgeries scheduled in the [facility]: registration is located on the 9th floor. Surgeries scheduled in [facility]: registration is located on the 6th floor. Surgeries scheduled in the [facility]: registration is located i n the [facility] on the first floor. For surgeries scheduled to take place at the [place] [facility]: registration is l [...] If you use specialized medical equipment at [facility], please check with your provider before [...] and Smoking Cessation Brochure.E lectronically signed by Kathlene Monterroso at 06/06/2011 12:54 PM PDT documented [...]
--- OUTSIDE RECORDS SUMMARY | ~2018-07-13 | XMS | Encounter Summary ---
Demographics + + + | Address | [address] | | | [place] [address] | + + + | Home Phone [...] [place] | | | | | [address] | | + + + + + Care Team Providers + +------+ + | Care Branch General Manager Name | Role | Phone | [...] | | | | | | | [address] | | | | | | | [address] | | | | | | | [place], | | | | | | | [place] | | | | | | | [address] | | | | | | | Phone: | | | | | | | [phone] | | | | | | | Fax: | | | | | | | [phone] | +--------+--------+ + + + + Encounter Details +--------+---------+ + + + | Date | Type | Department | Care Team | Description | +--------+---------+ + + + | 04/21/ | Office | Orthopaedics at | Misael Myers MD | Right shoulder pain, | | 2017 | Visit | [facility] [address] | [address] | unspecified | | | | Ave Mailcode: CH12A | [address] | chronicity (Primary | | | | Center for [facility] | [place], [place] | Dx) | | | | and Healing, | [address] | | | | | Floor [place], [place] | [phone] | | | | | [address] | | | | | | [phone] | | | +--------+---------+ + + + [...]
--- OUTSIDE RECORDS SUMMARY | ~2018-07-13 | XMS | Clinical Summary ---
Demographics + + + | Address | [address] | | | [place] [address] | + + + | Home Phone [...] [place] | | | | | [address] | | + + + + + Care Team Providers + +------+ + | Care Last Picker Name | Role | Phone | + +------+ + | Zeyad May MD | PP | | + +------+ + Source Comments YOVANNY is fully live on both EpicCare Ambulatory and EpicCare InPatient.[facility] Allergies + + + + + + [...]
--- OUTSIDE RECORDS SUMMARY | ~2018-07-13 | XMS | Clinical Summary ---
Demographics + + + | Address | [address] | | | [place] [address] | + + + | Home Phone | | + + + | Preferred Language | Unknown | + + + | Marital Status | | + + + | Presybeterian Affiliation | Unknown | + + + | Race | Unknown | + + + | Ethnic Group | Unknown | + + + Author + + + | Author | [facility] [address] | + + + | Organization | [facility] [address] | + + + | Address | [...] Team Providers + +------+ + | Care Checker/Stocker Name | Role | Phone | + [...] | MA - GENERIC | MA-GEN | [id number] | [employer] | | | | | [...] | | al/Fam | | 1941 | [phone] | [place] | | | lyla | | | [address] | [address] | + +--------+ +--------+ + +
--- OUTSIDE RECORDS SUMMARY | ~2018-07-13 | XMS | Encounter Summary ---
Demographics + + + | Address | [address] | | | [place] [address] | + + + | Home Phone [...] [place] | | | | | [address] | | + + + + + Care Team Providers + +------+ + | Care Event Specialist Product Demonstrator Name | Role | Phone | + [...] | | | | | PHYSICAL | [place], [place] | [address] | | | | | THERAPY | [address] | for Health | | | | | REFERRAL | Phone: | and Healing, | | | | | | [phone] | 1st floor | | | | | | Fax: | [place], [place] | | | | | | [phone] | [address] | | | | | | | Phone: | | | | | | | [phone] | | | | | | | Fax: | | | | | | | [phone] | +--------+--------+ + + + + Encounter [...] [facility] | Celestine Carmen | | | | | [address] | [place], [place] | | | | | Mailcode: CH3 | [address] | | | | | [facility] | | | | | | and Ned, 1st | | | | | | floor [place], [place] | | | | | | [address] | | | | | | [phone] | | | +--------+---------+ + + + [...] might be different fr om the original. [id number] KEVON WELCH Date of : 1940 Start of care: 07/24/11 Date of onset:07/22/11 Referring/Attending Practitioner: Misael Myers MD . Primary/Referral Diagnosis/ICD-9: Encounter Diagnoses Name Primary? Shoulder pain Yes Insurance: Payor: [employer] MEDICARE Plan: [employer] MEDICARE Product Type: PPO Service period from: 07/24/11-08/23/11 Number visits used/authorized: 1 [facility] PHYSICAL THERAPY: Post-op SHOULDER POST OP [...] that all cancellations be made at [facility] 24 hours in advance by calling [phone]. Our office is open 7am-6pm and there is a SideStep ssage line 24 hours a day. Any [...] change in their status. PHILLY RAIN PT [facility] REHABILITATION SERVICES AND HAND THERAPY [address] Mailcode: [address] And [facility], [address] [place] [address] documented in this e ncounter Plan [...] + | [place] THERAPEUTIC | Routin | 07/24/2011 | Shoulder pain | | | ACTIVITIES | e | 4:38 PM | | | | | | PDT | | | + +--------+ + + + | [place] THERAPEUTIC | Routin | 07/24/2011 | Shoulder pain | | | EXERCISES | e | 4:38 PM | | | | | | PDT | | | + +--------+ + + + | [place] PHYS THERAPY | Routin | 07/24/2011 | [...]
--- OUTSIDE RECORDS SUMMARY | ~2018-07-13 | XMS | Encounter Summary ---
Demographics + + + | Address | [address] | | | [place] [address] | + + + | Home Phone [...] [place] | | | | | [address] | | + + + + + Care Team Providers + +------+ + | Care Global Expansion Sales Director Name | Role | Phone | [...] | | | | | Procedures | [facility] | Mailcode: | | | | | PHYSICAL | Rd | [facility] | | | | | THERAPY | [place], [place] | for Health | | | | | REFERRAL | [address] | and Healing, | | | | | | | 1st floor | | | | | | | [place], [place] | | | | | | | [address] | | | | | | | Phone: | | | | | | | [phone] | | | | | | | Fax: | | | | | | | [phone] | +--------+--------+ + + + + Encounter Details +--------+---------+ + + + | Date | Type | Department | Care Team | Description | +--------+---------+ + + + | 05/19/ | Office | [facility] Physical | Rupesh, | Shoulder pain | | 2013 | Visit | Therapy Services at | Alise, PT [address] | (Primary Dx) | | | | [facility] | [address] | | | | | [address] | [place], [place] | | | | | Mailcode: CH3P | [address] | | | | | [facility] | | | | | | and Ned, 1st | | | | | | floor [place], [place] | | | | | | [address] | | | | | | [phone] | | | +--------+---------+ + + + [...] [place], PT - 05/19/2013 12:23 PM PDT [id number] KEVON WELCH Date of : 1940 Start of care: 05/19/2013 Date of onset: 03/21/2013 Referring/Attending Practitioner: Misael Myers Primary/Referral Diagnosis/ICD-9: Shoulder pain (primary encounter diagnosis) Insurance: Payor: [employer] ODS MEDICARE Plan: [employer] MEDICARE Product Type: P PO Service period from: 05/19/2013 to - Number visits used/authorized: [facility] PHYSICAL THERAPY EVALUATION- ORTHO SUBJECTIVE: History [...] new with i njury 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 Alise [place], Pt [facility] REHABILITATION SERVICES AND HAND THERAPY [address] Mailcode: [address] [address] documented in this encounter Plan of Treatment Not on filedocumented as of this encounter Procedures + +--------+ + + + | Procedure Name | Priori | Date/Time | Associated Diagnosis | Comments | | | ty | | | | + +--------+ + + + | [place] THERAPEUTIC | Routin | 05/19/2013 | Shoulder pain | | | EXERCISES | e | 3:30 PM | | | | | | PDT | | | + +--------+ + + + | [place] PHYS THERAPY | Routin | 05/19/2013 | [...]
--- OUTSIDE RECORDS SUMMARY | ~2018-07-13 | XMS | Encounter Summary ---
Demographics + + + | Address | [address] | | | [place] [address] | + + + | Home Phone [...] [place] | | | | | [address] | | + + + + + Care Team Providers + +------+ + | Care News Department Intern Name | Role | Phone | [...] | | | | | Procedures | [facility] | Mailcode: | | | | | PHYSICAL | Rd | [facility] | | | | | THERAPY | [place], [place] | for Health | | | | | REFERRAL | [address] | and Healing, | | | | | | | 1st floor | | | | | | | [place], [place] | | | | | | | [address] | | | | | | | Phone: | | | | | | | [phone] | | | | | | | Fax: | | | | | | | [phone] | +--------+--------+ + + + + Encounter [...] | | | [address] | [place], [place] | | | | | Mailcode: [facility] | [address] | | | | | [facility] | | | | | | and Healing, 1st | | | | | | floor [place], [place] | | | | | | [address] | | | | | | [phone] | | | +--------+---------+ + + + [...] might be different from the o saul. [id number] KEVON WELCH Date of : 1940 Start of care: 05/19/2013 Date of onset: 03/21/2013 Referring/Attending Practitioner: Misael Myers Primary/Referral Diagnosis/ICD-9: Shoulder pain, right (primary encounter diagnosis) Insurance: Payor: [employer] MEDICARE Plan: [employer] MEDICARE Product Type: P PO Service period from: 05/19/2013 to 01/18/2014 Number visits used/authorized: 07/21 [facility] PHYSICAL THERAPY TREATMENT - ORTHO [...] Right 07/20/2013 Right 08/11/2013 Flexion 141 155 [id number]* [id number] Pre 125* Post 140 Abduction 146 150 wcr041* bhns703 Pre 95* Post 132 ER at 90 [...] living in [place] Treatment began: 1100 am Treatment ended: [...] student's note. Alise [place], PT [facility] REHABILITATION SERVICES AND HAND THERAPY [address] Mailcode: [place] [address] documented in this encounter Plan of Treatment Not on filedocumented as of this encounter Procedures + +--------+ + + + | Procedure Name | Priori | Date/Time | Associated Diagnosis | Comments | | | ty | | | | + +--------+ + + + | [place] MANUAL THER | Routin | 08/30/2013 | Shoulder pain, | | | TECH,1+REGIONS,EA 15 | e | 1:58 PM | right | | | MIN | | PDT | | | + +--------+ + + + | [place] THERAPEUTIC | Routin | 08/30/2013 | Shoulder [...]
--- OUTSIDE RECORDS SUMMARY | ~2018-07-13 | XMS | Encounter Summary ---
Demographics + + + | Address | [address] | | | [place] [address] | + + + | Home Phone [...] Team Providers + +------+ + | Care Trophy Assembler Name | Role | Phone | [...] W | appointment | | | | [facility] | [address] | | | | | [address] | [place], [place] | | | | | Mailcode: [facility] | [address] | | | | | [facility] | | | | | | and Healing, 1st | | | | | | floor [place], [place] | | | | | | [address] | | | | | | [phone] | | | +--------+ + + + [...]
--- OUTSIDE RECORDS SUMMARY | ~2018-07-13 | XMS | Encounter Summary ---
Demographics + + + | Address | [address] | | | [place] [address] | + + + | Home Phone [...] [place] | | | | | [address] | | + + + + + Care Team Providers + +------+ + | Care Groundskeeper Supervisor Name | Role | Phone | [...] | | | | | Procedures | [facility] | Mailcode: | | | | | PHYSICAL | Rd | [facility] | | | | | THERAPY | [place], [place] | for Health | | | | | REFERRAL | [address] | and Healing, | | | | | | | 1st floor | | | | | | | [place], [place] | | | | | | | [address] | | | | | | | Phone: | | | | | | | [phone] | | | | | | | Fax: | | | | | | | [phone] | +--------+--------+ + + + + Encounter Details +--------+---------+ + + + | Date | Type | Department | Care Team | Description | +--------+---------+ + + + | 05/19/ | Office | [facility] Physical | Rupesh, | Shoulder pain | | 2013 | Visit | Therapy Services at | Alise, PT [address] | (Primary Dx) | | | | [facility] | [address] | | | | | [address] | [place], [place] | | | | | Mailcode: CH3P | [address] | | | | | [facility] | | | | | | and Ned, 1st | | | | | | floor [place], [place] | | | | | | [address] | | | | | | [phone] | | | +--------+---------+ + + + [...] [place], PT - 05/19/2013 12:23 PM PDT [id number] KEVON WELCH Date of : 1940 Start of care: 05/19/2013 Date of onset: 03/21/2013 Referring/Attending Practitioner: Misael Myers Primary/Referral Diagnosis/ICD-9: Shoulder pain (primary encounter diagnosis) Insurance: Payor: [employer]DS MEDICARE Plan: [employer] MEDICARE Product Type: P PO Service period from: 05/19/2013 to - Number visits used/authorized: [facility] PHYSICAL THERAPY EVALUATION- ORTHO SUBJECTIVE: History of [...] new with i njury 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 Alise [place], Pt [facility] REHABILITATION SERVICES AND HAND THERAPY [address] Mailcode: [address] [address] documented in this encounter Plan of Treatment Not on filedocumented as of this encounter Procedures + +--------+ + + + | Procedure Name | Priori | Date/Time | Associated Diagnosis | Comments | | | ty | | | | + +--------+ + + + | [place] THERAPEUTIC | Routin | 05/19/2013 | Shoulder pain | | | EXERCISES | e | 3:30 PM | | | | | | PDT | | | + +--------+ + + + | [place] PHYS THERAPY | Routin | 05/19/2013 | [...]
--- OUTSIDE RECORDS SUMMARY | ~2018-07-13 | XMS | Encounter Summary ---
Demographics + + + | Address | [address] | | | [place] [address] | + + + | Home Phone [...] [place] | | | | | [address] | | + + + + + Care Team Providers + +------+ + | Care It Consultant Name | Role | Phone | [...] | | | | | Procedures | [facility] | Mailcode: | | | | | PHYSICAL | Rd | [facility] | | | | | THERAPY | [place], [place] | for Health | | | | | REFERRAL | [address] | and Healing, | | | | | | Phone: | 1st floor | | | | | | [phone] | [place], [place] | | | | | | Fax: | [address] | | | | | | [phone] | Phone: | | | | | | | [phone] | | | | | | | Fax: | | | | | | | [phone] | +--------+--------+ + + + + Encounter [...] back pain; Lumbar | | | | [facility] | [address] | radiculopathy; | | | | [address] | [place], [place] | Herniated lumbar | | | | Mailcode: CH3P | [address] | intervertebral disc; | | | | [facility] | | 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 [id number] KEVON WELCH Date of : 1940 Start of care: 10/09/2011 Date of onset: 09/10/11 Referring/Attending Practitioner: Alcira Bocanegra PA . Primary/Referral Diagnosis/ICD-9: 722.10H Herniated lumbar intervertebral disc Insurance: Payor: ODS MEDICARE Plan: ODS MEDICARE Product Type: PPO Service period from: 10/09/2011 to: 11/08/11 Number visits used/authorized: 4/ Neurologist: Dr. Rafal Benites [facility] [address] [place] [address] (Office) [facility] PHYSICAL THERAPY SUBJECTIVE Age: 71 [...] month ago. He was bending over to leaf size picker a garden hose and felt increased [...] Social History: lives with Recreational Activities/Hobbies: plays [employer]; reading; does a lot of computer/keyboarding Functional [...] change in their status. LENA RAIN PT [facility] HAND THERAPY [address] Mailcode: [facility], 1st [facility] [address] documented in this e ncounter Plan of Treatment Not on filedocumented as of this encounter Procedures + +--------+ + + + | Procedure Name | Priori | Date/Time | Associated Diagnosis | Comments | | | ty | | | | + +--------+ + + + | [place] THERAPEUTIC | Routin | 10/24/2011 | Shoulder [...]
--- OUTSIDE RECORDS SUMMARY | ~2018-07-13 | XMS | Encounter Summary ---
Demographics + + + | Address | [address] | | | [place] [address] | + + + | Home Phone [...] [place] | | | | | [address] | | + + + + + Care Team Providers + +------+ + | Care Hotel Director Name | Role | Phone | [...] | PHYSICAL | [facility] [place] | [facility] | | | | | THERAPY | [address] | for Health | | | | | REFERRAL | Phone: | and Healing, | | | | | | [phone] | 1st floor | | | | | | Fax: | [place], [place] | | | | | | [phone] | [address] | | | | | | | Phone: | | | | | | | [phone] | | | | | | | Fax: | | | | | | | [phone] | +--------+--------+ + + + + Encounter [...] | | [facility] | [address] | | | | | [address] | [place], [place] | | | | | Mailcode: CH3[facility] | [address] | | | | | [facility] | | | | | | and Healing, 1st | | | | | | floor [facility] [place] | | | | | | [address] | | | | | | [phone] | | | +--------+---------+ + + + [...] might be different fr om the original. [id number] KEVON WELCH Date of : 1940 Start [...] children 24 hours in advance by calling [phone]. Our office is open 7am-6pm and there is a [employer] ssage line 24 hours a day. Any [...] change in their status. LENA RAIN PT [facility] [address] Mailcode: [address] [facility], [address] [place] [address] documented in this e ncounter Plan of Treatment Not on filedocumented as of this encounter Procedures + +--------+ + + + | Procedure Name | Priori | Date/Time | Associated Diagnosis | Comments | | | ty | | | | + +--------+ + + + | [place] MANUAL THER | Routin | 08/20/2011 | Shoulder pain | | | TECH,1+GERHARD,EA 15 | e | 12:40 PM | | | | MIN | | PDT | | | + +--------+ + + + | [place] THERAPEUTIC | Routin | 08/20/2011 | Shoulder [...]
--- OUTSIDE RECORDS SUMMARY | ~2018-07-13 | XMS | Encounter Summary ---
Demographics + + + | Address | [address] | | | [place] [address] | + + + | Home Phone [...] [place] | | | | | [address] | | + + + + + Care Team Providers + +------+ + | Care Surgical Clinical Reviewer Name | Role | Phone | + [...] | | | | | THERAPY | [address] | for Health | | | | | REFERRAL | Phone: | and Healing, | | | | | | [phone] | 1st floor | | | | | | Fax: | [place], [place] | | | | | | [phone] | [address] | | | | | | | Phone: | | | | | | | [phone] | | | | | | | Fax: | | | | | | | [phone] | +--------+--------+ + + + + Encounter [...] [facility] | [address] | | | | | [address] | [place], [place] | | | | | Mailcode: CH3P | [address] | | | | | [facility] | | | | | | and Healing, 1st | | | | | | floor [facility] [place] | | | | | | [address] | | | | | | [phone] | | | +--------+---------+ + + + [...] might be different fr om the original. [id number] KEVON WELCH Date of : 1940 Start of care: 07/24/11 Date of onset:07/22/11 Referring/Attending Practitioner: Misael Myers MD . Primary/Referral Diagnosis/ICD-9: Encounter Diagnoses Name Primary? Shoulder pain Yes Insurance: Payor: ODS MEDICARE Plan: ODS MEDICARE Product Type: PPO Service period from: 08/24/11-10/23/11 Number visits used/authorized: 6 [facility] PHYSICAL THERAPY: Post-op SHOULDER [...] all cancellations be made at [facility] 24 hours in advance by calling [phone]. Our office is open 7am-6pm and there is a [employer] line 24 hours a day. Any appointment [...] change in their status. LENA RAIN PT [facility] HAND THERAP[facility] [address] Mailcode: [address] [address] documented in this e ncounter Plan of Treatment Not on filedocumented as of this encounter Procedures + +--------+ + + + | Procedure Name | Priori | Date/Time | Associated Diagnosis | Comments | | | ty | | | | + +--------+ + + + | [place] MANUAL THER | Routin | 09/08/2011 | Shoulder pain | | | TECH,1+GERHARD,EA 15 | e | 10:41 AM | | | | MIN | | PDT | | | + +--------+ + + + | [place] THERAPEUTIC | Routin | 09/08/2011 | Shoulder [...]
--- OUTSIDE RECORDS SUMMARY | ~2018-07-13 | XMS | Encounter Summary ---
Demographics + + + | Address | [address] | | | [place] [address] | + + + | Home Phone [...] [place] | | | | | [address] | | + + + + + Care Team Providers + +------+ + | Care Policy Change Clerks Supervisor Name | Role | Phone | [...] | | sprain | REFERRING | [address] [place], | | | | | Osteoarthros | PROVIDER PER | [place] | | | | | [place], | [place] | [address] | | | | | unspecified | | Phone: | | | | | whether | | [phone] | | | | | generalized | | Fax: | | | | | or | | [phone] | | | | | localized, | [...] | | | | | | | COMPUTER SYSTEMS SECURITY ANALYST | | | | | | | OR SHLDR | | | | | | | ARTHROSCOP,P | | | | | | | ART | | | | | | | ACROMIOPLAS | | | | | | | W/CORACOACRO | | | | | | | M OR SHLDR | | | | | | | ARTHROSCOP,S | | | | | | | URG,DIS | | | | | | | CLAVICULECTO | | | | | | | MY [place] | | | | | | [...] | | | Ave Mailcode: CH12A | [place], [place] | | | | | [facility] | [address] | | | | | and [facility], [facility] | [phone] | | | | | Floor [place], [place] | | | | | | [address] | | | | | | [phone] | | | +--------+---------+ + + + [...]
--- OUTSIDE RECORDS SUMMARY | ~2018-07-13 | XMS | Encounter Summary ---
Demographics + + + | Address | [address] | | | [place] [address] | + + + | Home Phone [...] + + + | Author | [facility] | + + + | Organization | [facility] | + + + | Address | Unknown | + + + | Phone | Unavailable | + + + Support + + + + + | Name | Relationship | Address | Phone | + + + + + | Elizabeth Welch | ECON | [address] | | | | | [place] | | | | | [address] | | + + + + + Care Team Providers + +------+ + | Care Executive Account Manager Name | Role | Phone | [...] | | | | | THERAPY | [place], [place] | for Health | | | | | REFERRAL | [address] | and Healing, | | | | | | | 1st floor | | | | | | | [place], [place] | | | | | | | [address] | | | | | | | Phone: | | | | | | | [phone] | | | | | | | Fax: | | | | | | | [phone] | +--------+--------+ + + + + Encounter [...] | | | [address] | [place], [place] | | | | | Mailcode: [facility] | [address] | | | | | [facility] | | | | | | and Healing, 1st | | | | | | floor [place], [place] | | | | | | [address] | | | | | | [phone] | | | +--------+---------+ + + + [...] [place], PT - 11/16/2013 11:25 AM PDT [id number] KEVON WELCH Date of : 1940 Start of care: 05/19/2013 Date of onset: 03/21/2013 Referring/Attending Practitioner: Misael Myers Primary/Referral Diagnosis/ICD-9: Shoulder pain, right (primary encounter diagnosis) Insurance: Payor: [employer] MEDICARE Plan: [employer] MEDICARE Product Type: P PO Service period from: 05/19/2013 to 01/18/2014 Number visits used/authorized: 10/[address] [facility] PHYSICAL THERAPY TREATMENT - ORTHO SUBJECTIVE: Current: [...] Right 09/22 Right/Left 10/18/2013 Flexion 141 155 bdm317* fjln453 Pre 125* Post 140 145 145/150 Abduction 146 150 cth846* ficm411 Pre 95* Post 132 144 140/145 ER [...] home exercise program as pt lives in [place], [place] for posterior do minant shoulder strength Frequency/Duration: Follow up prn due to pt living in [facility] Treatment began: 1125 am Treatment ended: 1210 pm This note is to serve as the discharge summary if Kevon fails to attend further Physical Th erapy appointments or contact the therapist regarding any change in their status. Alise [place], PT [facility] AND HAND THERAPY [address] Mailcode: [place] [address] documented in this encounter Plan of Treatment Not on filedocumented as of this encounter Procedures + +--------+ + + + | Procedure Name | Priori | Date/Time | Associated Diagnosis | Comments | | | ty | | | | + +--------+ + + + | [place] MANUAL THER | Routin | 11/16/2013 | Shoulder pain, | | | TECH,1+REGIONS,EA 15 | e | 12:50 PM | right | | | MIN | | PDT | | | + +--------+ + + + | [place] THERAPEUTIC | Routin | 11/16/2013 | Shoulder [...]
--- OUTSIDE RECORDS SUMMARY | ~2018-07-13 | XMS | Encounter Summary ---
Demographics + + + | Address | [address] | | | [place] [address] | + + + | Home Phone [...] [place] | | | | | [address] | | + + + + + Care Team Providers + +------+ + | Care Delivery Man Name | Role | Phone | [...] | | | | THERAPY | [facility] [place] | for Health | | | | | REFERRAL | [address] | and Healing, | | | | | | Phone: | 1st floor | | | | | | [phone] | [place], [place] | | | | | | Fax: | [address] | | | | | | [phone] | Phone: | | | | | | | [phone] | | | | | | | Fax: | | | | | | | [phone] | +--------+--------+ + + + + Encounter [...] | | [facility] | [address] | | | | | [address] | [facility] [place] | | | | | Mailcode: CH3P | [address] | | | | | [facility] | | | | | | and Healing, 1st | | | | | | floor [place], [place] | | | | | | [address] | | | | | | [phone] | | | +--------+---------+ + + + [...] might be different fr om the original. [id number] KEVON WELCH Date of : 1940 Start of care: 07/24/11 Date of onset:07/22/11 Referring/Attending Practitioner: iMsael Myers MD . Primary/Referral Diagnosis/ICD-9: Encounter Diagnoses Name Primary? Shoulder pain Yes Insurance: Payor: [email or web address] MEDICARE Plan: ODS MEDICARE Product Type: PPO Service period from: 08/24/11-11/22/11 Number visits used/authorized: 8 [facility] PHYSICAL THERAPY: Post-op SHOULDER PO [...] given: Sidelying EXTERNAL ROTATION With no weight [id number] Standing B EXTERNAL ROTATION With yellow Tband 1x12 (increase up to 3 sets)-verbal TV watching stretch supine with towel rolls supporting weight of elbow x 5 min -reviewed t owel placement and performed for 5 min Standing Ext with yellow Tband 9s67-lenozk INTERNAL ROTATION Behind the back stretch with [...] as 24 hours in advance by calling [phone]. Our office is open 7am-6pm and there is a [employer] ssage line 24 hours a day. Any [...] their status. LENA RAIN PT [facility] SERVICES AND HAND THERAPY [address] Mailcode: [address] [facility], [address] [place] [address] documented in this e ncounter Plan of Treatment Not on filedocumented as of this encounter Procedures + +--------+ + + + | Procedure Name | Priori | Date/Time | Associated Diagnosis | Comments | | | ty | | | | + +--------+ + + + | [place] MANUAL THER | Routin | 11/13/2011 | Shoulder pain | | | TECH,1+REGIONS,EA 15 | e | 4:58 PM | | | | MIN | | PDT | | | + +--------+ + + + | [place] THERAPEUTIC | Routin | 11/13/2011 | Shoulder [...]
--- OUTSIDE RECORDS SUMMARY | ~2018-07-13 | XMS | Encounter Summary ---
Demographics + + + | Address | [address] | | | [place] [address] | + + + | Home Phone [...] [place] | | | | | [address] | | + + + + + Care Team Providers + +------+ + | Care General Lot Attendant Name | Role | Phone | [...] | | | | | THERAPY | [address] | for Health | | | | | REFERRAL | Phone: | and Healing, | | | | | | [phone] | 1st floor | | | | | | Fax: | [place], [place] | | | | | | [phone] | [address] | | | | | | | Phone: | | | | | | | [phone] | | | | | | | Fax: | | | | | | | [phone] | +--------+--------+ + + + + Encounter [...] [facility] | [facility] [address] | | | | | [address] | [place], [place] | | | | | Mailcode: CH3P | [address] | | | | | [facility] | | | | | | and Healing, 1st | | | | | | floor [facility] [place] | | | | | | [address] | | | | | | [phone] | | | +--------+---------+ + + + [...] might be different fr om the original. [id number] KEVON WELCH Date of : 1940 Start [...] request that all cancellations be made at [facility] t 24 hours in advance by calling [phone]. Our office is open 7am-6pm and there is a [employer] line 24 hours a day. Any appointment [...] [facility] [address] Mailcode: [address] [facility], 1st [facility] [address] documented in this e ncounter [...]
--- OUTSIDE RECORDS SUMMARY | ~2018-07-13 | XMS | Encounter Summary ---
Demographics + + + | Address | [address] | | | [place] [address] | + + + | Home Phone [...] [place] | | | | | [address] | | + + + + + Care Team Providers + +------+ + | Care Clother In Name | Role | Phone | + [...] intervertebral disc | | | | [facility] | [facility] | (Primary Dx) | | | | [address] | Road [place], [place] | | | | | Mailcode: [facility] | [address] | | | | | [facility] | | | | | | and Healing, [facility] | | | | | | floor [place], [place] | | | | | | [address] | | | | | | [phone] | | | +--------+---------+ + + + [...] Dailey, PT - 10/10/2011 1:41 PM PDT [id number] KEVON WELCH Date of : 1940 Start of care: 10/09/2011 Date of onset: 09/10/11 Referring/Attending Practitioner: Alcira Bocanegra PA . Primary/Referral Diagnosis/ICD-9: 722.10H Herniated lumbar intervertebral disc Insurance: Payor: ODS MEDICARE Plan: ODS MEDICARE Product Type: PPO Service period from: 10/09/2011 to: 11/08/11 Number visits used/authorized: 1/ Neurologist: Dr. Rafal Benites [address] [address] (Office) [facility] PHYSICAL THERAPY SUBJECTIVE Age: 71 y.o. [...] + | [place] THERAPEUTIC | Routin | 10/10/2011 | Herniated [...]
--- OUTSIDE RECORDS SUMMARY | ~2018-07-13 | XMS | Encounter Summary ---
Demographics + + + | Address | [address] | | | [place] [address] | + + + | Home Phone [...] [place] | | | | | [address] | | + + + + + Care Team Providers + +------+ + | Care Top Lift Scourer Name | Role | Phone | + [...] | | | | REFERRING | Dejan [place], | | | | | | PROVIDER PER | [place] | | | | | | [place] | [address] | | | | | | | Phone: | | | | | | | [phone] | | | | | | | Fax: | | | | | | | [phone] | +--------+--------+ + + + + Encounter Details +--------+---------+ + + + | Date | Type | Department | Care Team | Description | +--------+---------+ + + + | 06/29/ | Office | Preoperative | Lida Houser, | Shoulder pain | | 2011 | Visit | Medicine Clinic at | ANP [address] | (Primary Dx); Other | | | | [facility] 4th Floor [address] | specified | | | | [address] | [place], [place] | pre-operative | | | | Code: [facility] Center | [address] | examination; [place] | | | | for Health and | [phone] | (obstructive sleep | | | | Healing,4th Floor | | apnea) | | | | [place], [place] | | | | | | [address] | | | | | | [phone] | | | +--------+---------+ + + + [...] perfume, lotions or powder. Remove any nail malawian from at least one fingernail. Do not [...] Time: Someone from your surgeon's office or [facility] will provide you with information [...] it is after office hours, call the [facility] cutter grinder operator at [phone] and ask them to page your doc [...] patient. Document will be s canned in [place]. Current Medication List Name Sig IBUPROFEN 200 [...] further investigation and manageme nt. A. Acute AR within 7 days: no B. Unstable angina/Recent AR (7- 30 days): no C. Decompensated CHF: [...] no Rate of cardiac , non fatal AR, non fatal cardiac arrest 0 risk factors [...] contribute to this patient's care. [facility] ALV[facility] PREOPERATIVE MEDICINE CLINIC [address] [place] [address] [place] [address] Marilin Vang MA - 06/30/2011 2:19 PM PDT Nerve Block Home Pump Education: Total time spent during clinic visit in patient education 15 minutes. [facility] Department of Anesthesia, Regional Anesthesia patient [...] + +--------+ + + + | AL COLLECTION VENOUS | Routin | 06/30/2011 | [...] view image for the detailed interpretation from [employer] results. | CARDIOLOGY | + + + + + + + + | Performing | Address | City/State/Zipcode | Phone Number | | Organization | | | | + + + + + | [facility] | [address] | [place], [place] | | | CARDIOLOGY | [address] | [address] | | + + + + + [...] | + + + + + | [facility] DEPARTMENT OF | [address] | [place] [address] | | | PATHOLOGY | [address] [...]
--- OUTSIDE RECORDS SUMMARY | ~2018-07-13 | XMS | Encounter Summary ---
Demographics + + + | Address | [address] | | | [place] [address] | + + + | Home Phone [...] [place] | | | | | [address] | | + + + + + Care Team Providers + +------+ + | Care Wet End Tester Name | Role | Phone | [...] | | | | PHYSICAL | [facility] [place] | [facility] | | | | | THERAPY | [address] | for Health | | | | | REFERRAL | Phone: | and Healing, | | | | | | [phone] | 1st floor | | | | | | Fax: | [place], [place] | | | | | | [phone] | [address] | | | | | | | Phone: | | | | | | | [phone] | | | | | | | Fax: | | | | | | | [phone] | +--------+--------+ + + + + Encounter [...] | | [facility] | [address] | | | | | [address] | [place], [place] | | | | | Mailcode: CH3P | [address] | | | | | [facility] | | | | | | and Healing, 1st | | | | | | floor [facility] [place] | | | | | | [address] | | | | | | [phone] | | | +--------+---------+ + + + [...] might be different fr om the original. [id number] KEVON WELCH Date of : 1940 Start of care: 07/24/11 Date of onset:07/22/11 Referring/Attending Practitioner: Misael Myers MD . Primary/Referral Diagnosis/ICD-9: Encounter Diagnoses Name Primary? Shoulder pain Yes Insurance: Payor: [employer] MEDICARE Plan: ODS MEDICARE Product Type: PPO Service period from: 08/24/11-10/23/11 Number visits used/authorized: 6 [facility] PHYSICAL THERAPY: Post-op SHOULDER [...] that all cancellations be made at [facility] 24 hours in advance by calling [phone]. Our office is open 7am-6pm and there is a [employer] line 24 hours a day. Any appointment [...] THERAPY [address] Mailcode: [address] [address] documented in this e ncounter Plan of Treatment Not on filedocumented as of this encounter Procedures + +--------+ + + + | Procedure Name | Priori | Date/Time | Associated Diagnosis | Comments | | | ty | | | | + +--------+ + + + | [place] MANUAL THER | Routin | 09/08/2011 | Shoulder pain | | | TECH,1+GERHARD,EA 15 | e | 10:41 AM | | | | MIN | | PDT | | | + +--------+ + + + | [place] THERAPEUTIC | Routin | 09/08/2011 | Shoulder [...]
--- OUTSIDE RECORDS SUMMARY | ~2018-07-13 | XMS | Encounter Summary ---
Demographics + + + | Address | [address] | | | [place] [address] | + + + | Home Phone [...] [place] | | | | | [address] | | + + + + + Care Team Providers + +------+ + | Care Mechanical Service Representative Name | Role | Phone | [...] | | | | | PHYSICAL | [facility] [place] | [facility] | | | | | THERAPY | [address] | for Health | | | | | REFERRAL | Phone: | and Healing, | | | | | | [phone] | 1st floor | | | | | | Fax: | [place], [place] | | | | | | [phone] | [address] | | | | | | | Phone: | | | | | | | [phone] | | | | | | | Fax: | | | | | | | [phone] | +--------+--------+ + + + + Encounter Details +--------+---------+ + + + | Date | Type | Department | Care Team | Description | +--------+---------+ + + + | 08/03/ | Office | [facility] | Lena Rain, | Shoulder pain | | 2011 | Visit | Therapy Services at | PT [address] | (Primary Dx) | | | [facility] | [address] | | | | | [address] | [place], [place] | | | | | Mailcode: [facility] | [address] | | | | | [facility] | | | | | | and Healing, 1st | | | | | | floor [facility] [place] | | | | | | [address] | | | | | | [phone] | | | +--------+---------+ + + + [...] might be different fr om the original. [id number] KEVON WELCH Date of : 1940 Start of care: 07/24/11 Date of onset:07/22/11 Referring/Attending Practitioner: Misael Myers MD . Primary/Referral Diagnosis/ICD-9: Encounter Diagnoses Name Primary? Shoulder pain Yes Insurance: Payor: [employer]DS MEDICARE Plan: ODS MEDICARE Product Type: PPO Service period from: 07/24/11-08/23/11 Number visits used/authorized: 2 [facility]: Post-op SHOULDER POST OP DAY [...] weeks Treatment began: 1345 Treatment ended: 1420; [phone] for game ready Reviewed cancel/no show policy with patient. Pt voiced understanding. "At times we understand you must cancel. We request that all cancellations [facility] 24 hours in advance by calling [phone]. Our office is open 7am-6pm and there is a [place] line 24 hours a day. Any appointment [...] therapist regarding any change in their status. LEAN RAIN PT [facility] REHABILITATION SERVICES AND HAND THERAPY [address] Mailcode: [address] And [facility], [address] [place] [address] documented in this e ncounter Plan of Treatment Not on filedocumented as of this encounter Procedures + +--------+ + + + | Procedure Name | Priori | Date/Time | Associated Diagnosis | Comments | | | ty | | | | + +--------+ + + + | [place] MANUAL THER | Routin | 08/05/2011 | Shoulder pain | | | TECH,1+REGIONS,EA 15 | e | 4:04 PM | | | | MIN | | PDT | | | + +--------+ + + + | [place] THERAPEUTIC | Routin | 08/05/2011 | Shoulder [...]
--- OUTSIDE RECORDS SUMMARY | ~2018-07-13 | XMS | Encounter Summary ---
Demographics + + + | Address | [address] | | | [place] [address] | + + + | Home Phone [...] [place] | | | | | [address] | | + + + + + Care Team Providers + +------+ + | Care Tetryl Wringer Operator Name | Role | Phone | [...] | | | | PHYSICAL | [facility] [place] | [facility] | | | | | THERAPY | [address] | for Health | | | | | REFERRAL | Phone: | and Healing, | | | | | | [phone] | 1st floor | | | | | | Fax: | [place], [place] | | | | | | [phone] | [address] | | | | | | | Phone: | | | | | | | [phone] | | | | | | | Fax: | | | | | | | [phone] | +--------+--------+ + + + + Encounter Details +--------+ + + + + | Date | Type | Department | Care Team | Description | +--------+ + + + + | 05/13/ | White Metal Caster | Orthopaedics at | Katty Chairez PA | Shoulder pain | | 2011 | | [facility] [address] | [address] | (Primary Dx) | | | | Ave Mailcode: CH12[facility] | [place], [place] | | | | | [place] for [facility] | [address] | | | | | and , | [phone] | | | | | Floor [place], [place] | | | | | | [address] | | | | | | [phone] | | | +--------+ + + + [...]
--- OUTSIDE RECORDS SUMMARY | ~2018-07-13 | XMS | Encounter Summary ---
Demographics + + + | Address | [address] | | | [place] [address] | + + + | Home Phone [...] [place] | | | | | [address] | | + + + + + Care Team Providers + +------+ + | Care Flat Clothier Name | Role | Phone | + [...] + + | 07/21/ | Surgery | [facility] | Misael Myers MD | ARTHROSCOPIC | | 2011 | | [place] for [facility] | [address] | SUBACROMIAL | | | | and Healing Surgery | [facility] | DECOMPRESSION; | | | | Center Admitting | [place], [place] | DISTAL CLAVICLE | | | | Desk Located on the | [address] | RESECTION AND | | | | 4th floor [address] | [phone] | POSSIBLE BICEPS | | | | [address] [place], | | [place] | | | | [place] [address] | | | +--------+---------+ + + + [...]
--- OUTSIDE RECORDS SUMMARY | ~2018-07-13 | XMS | Encounter Summary ---
Demographics + + + | Address | [address] | | | [place] [address] | + + + | Home Phone [...] [place] | | | | | [address] | | + + + + + Care Team Providers + +------+ + | Care Automatic Profile Shaper Operator Name | Role | Phone | [...] | | | | | THERAPY | [place], [place] | for Health | | | | | REFERRAL | [address] | and Healing, | | | | | | | 1st floor | | | | | | | [place], [place] | | | | | | | [address] | | | | | | | Phone: | | | | | | | [phone] | | | | | | | Fax: | | | | | | | [phone] | +--------+--------+ + + + + Encounter [...] | [facility] | [address] | | | | | [address] | [place], [place] | | | | | Mailcode: [facility] | [address] | | | | | [facility] | | | | | | and Healing, 1st | | | | | | floor [place], [place] | | | | | | [address] | | | | | | [phone] | | | +--------+---------+ + + + [...] [place] PT - 10/19/2013 10:15 AM PDT [id number] KEVON WELCH Date of : 1940 Start of care: 05/19/2013 Date of onset: 03/21/2013 Referring/Attending Practitioner: Misael Myers Primary/Referral Diagnosis/ICD-9: Shoulder pain, right (primary encounter diagnosis) Insurance: Payor: [employer] MEDICARE Plan: [employer] MEDICARE Product Type: P PO Service period from: 05/19/2013 to 01/18/2014 Number visits used/authorized: 09/20 [facility] PHYSICAL THERAPY TREATMENT - ORTHO [...] Right 09/22 Right/Left 10/18/2013 Flexion 141 155 [id number]* [id number] Pre 125* Post 140 145 145/150 Abduction 146 150 [id number]* [id number] Pre 95* Post 132 144 140/145 ER [...] home exercise program as pt lives in [facility], [place] for posterior do minant shoulder strength Frequency/Duration: Follow up prn due to pt living in [facility], [place] Treatment began: 1015 am Treatment ended: 1100 am This note is to serve as the discharge summary if Kevon fails to attend further Physical Th erapy appointments or contact the therapist regarding any change in their status. Alise [place], PT [facility] REHABILITATION SERVICES AND HAND THERAPY [address] Mailcode: [place] [address] documented in this encounter Plan of Treatment Not on filedocumented as of this encounter Procedures + +--------+ + + + | Procedure Name | Priori | Date/Time | Associated Diagnosis | Comments | | | ty | | | | + +--------+ + + + | ME MANUAL THER | Routin | 10/19/2013 | Shoulder pain, | | | TECH,1+REGIONS,EA 15 | e | 12:14 PM | right | | | MIN | | PDT | | | + +--------+ + + + | ME THERAPEUTIC | Routin | 10/19/2013 | Shoulder [...]
--- OUTSIDE RECORDS SUMMARY | ~2018-07-13 | XMS | Encounter Summary ---
Demographics + + + | Address | [address] | | | [place] [address] | + + + | Home Phone [...] [place] | | | | | [address] | | + + + + + Care Team Providers + +------+ + | Care Ems Manager Name | Role | Phone | [...] + + | 07/21/ | Telephone | DEMARILYN Sinclair | Maddie Luna, | Other (home pump- | | 2011 | | Pain Center at | LOCKSTITCH BACK MAKER [address] | patient initiated) | | | | [facility] | [place], [place] | | | | | [address] | [address] | | | | | Mail Code: [facility] | [phone] | | | | | [facility] | | | | | | and | | | | | | Floor [place], [place] | | | | | | [address] | | | | | | [phone] | | | +--------+ + + + [...]
--- OUTSIDE RECORDS SUMMARY | ~2018-07-13 | XMS | Encounter Summary ---
Demographics + + + | Address | [address] | | | [place] [address] | + + + | Home Phone [...] [place] | | | | | [address] | | + + + + + Care Team Providers + +------+ + | Care Thread Spooler Name | Role | Phone | + [...] W | appointment | | | | [facility] | [address] | | | | | [address] | [place], [place] | | | | | Mailcode: [facility] | [address] | | | | | [facility] | | | | | | and Healing, 1st | | | | | | floor [place], [place] | | | | | | [address] | | | | | | [phone] | | | +--------+ + + + [...]
--- OUTSIDE RECORDS SUMMARY | ~2018-07-13 | XMS | Encounter Summary ---
Demographics + + + | Address | [address] | | | [place] [address] | + + + | Home Phone [...] [place] | | | | | [address] | | + + + + + Care Team Providers + +------+ + | Care Pediatric Intensive Physician Name | Role | Phone | + [...] | | Therapy | Shoulder | VIANEY Aalniz | [address] | | | | | pain | [address] | [address] | | | | | Procedures | Ave | Mailcode: | | | | | PHYSICAL | [facility] [place] | [facility] | | | | | THERAPY | [address] | for Health | | | | | REFERRAL | Phone: | and Healing, | | | | | | [phone] | 1st floor | | | | | | Fax: | [place], [place] | | | | | | [phone] | [address] | | | | | | | Phone: | | | | | | | [phone] | | | | | | | Fax: | | | | | | | [phone] | +--------+--------+ + + + + Encounter [...] [facility] | [address] | | | | | [address] | [place], [place] | | | | | Mailcode: [facility] | [address] | | | | | [facility] | | | | | | and Healing, 1st | | | | | | floor [facility] [place] | | | | | | [address] | | | | | | [phone] | | | +--------+---------+ + + + [...] might be different fr om the original. [id number] KEVON WELCH Date of : 1940 Start [...] in their status. LENA RAIN, PT [facility] REHABILITATION SERVICES AND HAND THERAPY [address] Mailcode: [address] [facility], 1st Floor [facility] [address] documented in this e ncounter Plan of Treatment Not on filedocumented as of this encounter Procedures + +--------+ + + + | Procedure Name | Priori | Date/Time | Associated Diagnosis | Comments | | | ty | | | | + +--------+ + + + | MA THERAPEUTIC | Routin | 05/29/2011 | Shoulder pain | | | ACTIVITIES | e | 3:47 PM | | | | | | PDT | | | + +--------+ + + + | MA MANUAL THER | Routin | 05/29/2011 | Shoulder pain | | | TECH,1+REGIONS,EA 15 | e | 3:47 PM | | | | MIN | | PDT | | | + +--------+ + + + | MA THERAPEUTIC | Routin | 05/29/2011 | Shoulder [...]
--- OUTSIDE RECORDS SUMMARY | ~2018-07-13 | XMS | Encounter Summary ---
Demographics + + + | Address | [address] | | | [place] [address] | + + + | Home Phone [...] [place] | | | | | [address] | | + + + + + Care Team Providers + +------+ + | Care Social Sciences Department Chair Name | Role | Phone | + [...] | | | | | PHYSICAL | [place], [place] | [address] | | | | | THERAPY | [address] | for Health | | | | | REFERRAL | Phone: | and Healing, | | | | | | [phone] | 1st floor | | | | | | Fax: | [place], [place] | | | | | | [phone] | [address] | | | | | | | Phone: | | | | | | | [phone] | | | | | | | Fax: | | | | | | | [phone] | +--------+--------+ + + + + Encounter Details +--------+---------+ + + + | Date | Type | Department | Care Team | Description | +--------+---------+ + + + | 06/29/ | Office | [facility] | Philly Rain, | Shoulder pain | | 2011 | Visit | Therapy Services at | PT [address] | (Primary Dx) | | | | [facility] | Celestine Carmen | | | | | [address] | [place], [place] | | | | | Mailcode: CH3 | [address] | | | | | [facility] | | | | | | and Ned, 1st | | | | | | floor [place], [place] | | | | | | [address] | | | | | | [phone] | | | +--------+---------+ + + + [...] might be different fr om the original. [id number] KEVON WELCH Date of : 1940 Start of care: 06/30/2011 Date of onset:12/24/10 Referring/Attending Practitioner: Misael Myers MD . Primary/Referral Diagnosis/ICD-9: Encounter Diagnoses Name Primary? Shoulder pain Yes Insurance: Payor: ODS MEDICARE Plan: ODS MEDICARE Product Type: PPO Service period from: 06/30/2011 to: 09/28/11 Number visits used/authorized: 4 [facility] PHYSICAL THERAPY: Pre-op SHOULDER Subjective: Pt [...] t 24 hours in advance by calling [phone]. Our office is open 7am-6pm and there is a [employer] ssage line 24 hours a day. Any [...] HAND THERAPY [address] Mailcode: [address] [facility], 1st Floor [facility] [address] documented in this e ncounter [...]
--- OUTSIDE RECORDS SUMMARY | ~2018-07-13 | XMS | Encounter Summary ---
Demographics + + + | Address | [address] | | | [place] [address] | + + + | Home Phone [...] [place] | | | | | [address] | | + + + + + Care Team Providers + +------+ + | Care Pharmacy Director Name | Role | Phone | [...] (Primary Dx) | | | | [facility] | [address] | | | | | [address] | [place], [place] | | | | | Mailcode: [facility]3P | [address] | | | | | [facility] | | | | | | and Healing, 1st | | | | | | floor [place], [place] | | | | | | [address] | | | | | | [phone] | | | +--------+---------+ + + + [...] [place], PT - 09/22/2013 9:46 AM PDT [id number] KEVON WELCH Date of : 1940 Start of care: 05/19/2013 Date of onset: 03/21/2013 Referring/Attending Practitioner: Misael Myers Primary/Referral Diagnosis/ICD-9: Shoulder pain, right (primary encounter diagnosis) Insurance: Payor: [employer] MEDICARE Plan: [employer] MEDICARE Product Type: P PO Service [...] Right 08/11/2013 Right 09/22/2013 Flexion 141 155 [id number]* [id number] Pre 125* Post 140 145 Abduction 146 150 [id number]* [id number] Pre 95* Post 132 144 ER at [...] home exercise program as pt lives in [facility], [place] for posterior do minant shoulder strength Frequency/Duration: Follow up prn due to pt living in [facility], [place] Treatment began: 946 am Treatment ended: 1031 am This note is to serve as the discharge summary if Kevon fails to attend further Physical Th erapy appointments or contact the therapist regarding any change in their status. Alise [place], PT [facility] REHABILITATION SERVICES AND HAND THERAPY [address] Mailcode: [address] [address] documented in this encounter Plan [...]
--- OUTSIDE RECORDS SUMMARY | ~2018-07-13 | XMS | Encounter Summary ---
Demographics + + + | Address | [address] | | | [place] [address] | + + + | Home Phone [...] [place] | | | | | [address] | | + + + + + Care Team Providers + +------+ + | Care Ordering Box Operator Name | Role | Phone | [...] | | | | THERAPY | [facility] [place] | for Health | | | | | REFERRAL | [address] | and Healing, | | | | | | Phone: | 1st floor | | | | | | [phone] | [facility] [place] | | | | | | Fax: | [address] | | | | | | [phone] | Phone: | | | | | | | [phone] | | | | | | | Fax: | | | | | | | [phone] | +--------+--------+ + + + + Encounter Details +--------+---------+ + + + | Date | Type | Department | Care Team | Description | +--------+---------+ + + + | 10/29/ | Office | [facility] | Lena Rain, | Herniated lumbar | | 2011 | Visit | Therapy Services at | PT [address] | intervertebral disc; | | | | [facility] | [address] | Degeneration of | | | | [address] | [place], [place] | lumbar | | | | Mailcode: CH3P | [address] | intervertebral disc; | | | | [facility] | | Low back pain; | | | | and Healing, 1st | | Lumbar radiculopathy | | | | floor [place], [place] | | | | | | [address] | | | | | | [phone] | | | +--------+---------+ + + + [...] might be different fr om the original. [id number] KEVON WELCH Date of : 1940 Start of care: 10/09/2011 Date of onset: 09/10/11 Referring/Attending Practitioner: Alcira Bocanegra PA . Primary/Referral Diagnosis/ICD-9: 722.10H Herniated lumbar intervertebral disc Insurance: Payor: ODS MEDICARE Plan: ODS MEDICARE Product Type: PPO Service period from: 10/09/2011 to: 11/08/11 Number visits used/authorized: 6/ Neurologist: Dr. Lyles [facility] [address] [place] [address] (Office) [facility] PHYSICAL THERAPY SUBJECTIVE Age: 71 [...] month ago. 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 felt increased [...] Social History: lives with Recreational Activities/Hobbies: plays [employer]; reading; does a lot of computer/keyboarding Functional [...] RAIN PT [facility] REHABILITATION SERVICES AND HAND THERAPY [address] Mailcode: [address], [address] [place] [address] documented in this e ncounter Plan of Treatment Not on filedocumented as of this encounter Procedures + +--------+ + + + | Procedure Name | Priori | Date/Time | Associated Diagnosis | Comments | | | ty | | | | + +--------+ + + + | [place] THERAPEUTIC | Routin | 10/30/2011 | Herniated [...] + | [place] THERAPEUTIC | Routin | 10/30/2011 | Herniated [...]
--- OUTSIDE RECORDS SUMMARY | ~2018-07-13 | XMS | Encounter Summary ---
Demographics + + + | Address | [address] | | | [place] [address] | + + + | Home Phone | | + + + | Preferred Language | Unknown | + + + | Marital Status | | + + + | Tenriism Affiliation | NON | + + + [...] [place] | | | | | [address] | | + + + + + Care Team Providers + +------+ + | Care Check Examiner Name | Role | Phone | [...] | | | | | THERAPY | [place], [place] | for Health | | | | | REFERRAL | [address] | and Healing, | | | | | | | 1st floor | | | | | | | [place], [place] | | | | | | | [address] | | | | | | | Phone: | | | | | | | [phone] | | | | | | | Fax: | | | | | | | [phone] | +--------+--------+ + + + + Encounter Details +--------+---------+ + + + | Date | Type | Department | Care Team | Description | +--------+---------+ + + + | 05/19/ | Office | [facility] Physical | Rupesh, | Shoulder pain | | 2013 | Visit | Therapy Services at | Alise, PT [address] | (Primary Dx) | | | | [facility] | [address] | | | | | [address] | [place], [place] | | | | | Mailcode: CH3P | [address] | | | | | [facility] | | | | | | and Ned, 1st | | | | | | floor [place], [place] | | | | | | [address] | | | | | | [phone] | | | +--------+---------+ + + + [...] [place], PT - 05/19/2013 12:23 PM PDT [id number] KEVON WELCH Date of : 1940 Start of care: 05/19/2013 Date of onset: 03/21/2013 Referring/Attending Practitioner: Misael Myers Primary/Referral Diagnosis/ICD-9: Shoulder pain (primary encounter diagnosis) Insurance: Payor: [employer] ODS MEDICARE Plan: [employer] MEDICARE Product Type: P PO Service period from: 05/19/2013 to - Number visits used/authorized: [facility] PHYSICAL THERAPY EVALUATION- ORTHO SUBJECTIVE: [...] walks on treadmill, light weight lifting, play [employer] (able to ariela y for 1 hour) [...] pt lives in [facility], [place] for posterior do minant shoulder strength Frequency/Duration: Follow up prn due to pt living in [facility], [place] Treatment began: 1220 Treatment ended: 1300 This note is to serve as the discharge summary if Kevon fails to attend further Physical Th erapy appointments or contact the therapist regarding any change in their status. Alise [place], Pt [facility] REHABILITATION SERVICES AND HAND THERAPY [address] Mailcode: [address] [address] documented in this encounter Plan of Treatment Not on filedocumented as of this encounter Procedures + +--------+ + + + | Procedure Name | Priori | Date/Time | Associated Diagnosis | Comments | | | ty | | | | + +--------+ + + + | [place] THERAPEUTIC | Routin | 05/19/2013 | Shoulder pain | | | EXERCISES | e | 3:30 PM | | | | | | PDT | | | + +--------+ + + + | [place] PHYS THERAPY | Routin | 05/19/2013 | [...]
--- OUTSIDE RECORDS SUMMARY | ~2018-07-13 | XMS | Encounter Summary ---
Demographics + + + | Address | [address] | | | [place] [address] | + + + | Home Phone [...] [place] | | | | | [address] | | + + + + + Care Team Providers + +------+ + | Care Bellman Captain Name | Role | Phone | + [...] | | | | | THERAPY | [place], [place] | for Health | | | | | REFERRAL | [address] | and Healing, | | | | | | | 1st floor | | | | | | | [place], [place] | | | | | | | [address] | | | | | | | Phone: | | | | | | | [phone] | | | | | | | Fax: | | | | | | | [phone] | +--------+--------+ + + + + Encounter [...] (Primary Dx) | | | | [facility] | [address] | | | | | [address] | [place], [place] | | | | | Mailcode: [facility] | [address] | | | | | [facility] | | | | | | and Healing, 1st | | | | | | floor [place], [place] | | | | | | [address] | | | | | | [phone] | | | +--------+---------+ + + + [...] [place], PT - 11/16/2013 11:25 AM PDT [id number] KEVON WELCH Date of : 1940 Start of care: 05/19/2013 Date of onset: 03/21/2013 Referring/Attending Practitioner: Misael Myers Primary/Referral Diagnosis/ICD-9: Shoulder pain, right (primary encounter diagnosis) Insurance: Payor: [employer] MEDICARE Plan: [employer] MEDIC[employer] Product Type: P PO Service period from: 05/19/2013 to 01/18/2014 Number visits used/authorized: 10/21 [facility] PHYSICAL THERAPY TREATMENT - ORTHO [...] Right 09/22 Right/Left 10/18/2013 Flexion 141 155 [id number]* [id number] Pre 125* Post 140 145 145/150 Abduction 146 150 [id number]* [id number] Pre 95* Post 132 144 140/145 ER [...] home exercise program as pt lives in [place], [place] for posterior do minant shoulder strength Frequency/Duration: Follow up prn due to pt living in [facility], [place] Treatment began: 1125 am Treatment ended: 1210 pm This note is to serve as the discharge summary if Kevon fails to attend further Physical Th erapy appointments or contact the therapist regarding any change in their status. Alise [place], PT [facility] REHABILITATION SERVICES AND HAND THERAPY [address] Mailcode: [place] [address] documented in this encounter Plan of Treatment Not on filedocumented as of this encounter Procedures + +--------+ + + + | Procedure Name | Priori | Date/Time | Associated Diagnosis | Comments | | | ty | | | | + +--------+ + + + | [place] MANUAL THER | Routin | 11/16/2013 | Shoulder pain, | | | TECH,1+REGIONS,EA 15 | e | 12:50 PM | right | | | MIN | | PDT | | | + +--------+ + + + | [place] THERAPEUTIC | Routin | 11/16/2013 | Shoulder [...]
--- OUTSIDE RECORDS SUMMARY | ~2018-07-13 | XMS | Encounter Summary ---
Demographics + + + | Address | [address] | | | [place] [address] | + + + | Home Phone [...] [place] | | | | | [address] | | + + + + + Care Team Providers + +------+ + | Care Home Therapy Clinician Name | Role | Phone | + [...] | | | | | THERAPY | [place], [place] | for Health | | | | | REFERRAL | [address] | and Healing, | | | | | | Phone: | 1st floor | | | | | | [phone] | [place], [place] | | | | | | Fax: | [address] | | | | | | [phone] | Phone: | | | | | | | [phone] | | | | | | | Fax: | | | | | | | [phone] | +--------+--------+ + + + + Encounter Details +--------+---------+ + + + | Date | Type | Department | Care Team | Description | +--------+---------+ + + + | 10/08/ | Office | [facility] | Philly Rain, | Low back pain | | 2011 | Visit | Therapy Services at | PT [address] | (Primary Dx); | | | | [facility] | [address] | Herniated lumbar | | | | [address] | [place], [place] | intervertebral disc; | | | | Mailcode: CH3P | [address] | Lumbar | | | | [facility] | | radiculopathy; | | | | and Healing, 1st | | Degeneration of | | | | floor [place], [place] | | lumbar | | | | [address] | | intervertebral disc | | | | [phone] | | | +--------+---------+ + + + [...] might be different fr om the original. [id number] KEVON WELCH Date of : 1940 Start of care: 10/09/2011 Date of onset: 09/10/11 Referring/Attending Practitioner: Alcira Bocanegra PA . Primary/Referral Diagnosis/ICD-9: 724.2A Low back pain Insurance: Payor: ODS MEDICARE Plan: ODS MEDICARE Product Type: PPO Service period from: 10/09/2011 to: 11/08/11 Number visits used/authorized: 1/ Neurologist: [facility] [address] [place] [address] (Office) [facility] PHYSICAL THERAPY INITIAL EVALUATION SUBJECTIVE Age: 71 [...] Social History: lives with Recreational Activities/Hobbies: plays bassA vida é feita de [place]con[place]; reading; does a lot of computer/keyboarding Functional [...] DF 4- 4+ L5 EHL 4 4+ L5-L6Ejtjz Eversion 4 5 S1 Calf Raises 5 [...] change in their status. PHILLY RAIN PT [facility] RE[facility]IL[facility] AND HAND THERAPY [address] Mailcode: [address] [facility], 1st [facility] [address] documented in this e ncounter Plan of Treatment Not on filedocumented as of this encounter Procedures + +--------+ + + + | Procedure Name | Priori | Date/Time | Associated Diagnosis | Comments | | | ty | | | | + +--------+ + + + | ID THERAPEUTIC | Routin | 10/09/2011 | Low back pain | | | EXERCISES | e | 1:53 PM | | | | | | PDT | | | + +--------+ + + + | ID PHYS THERAPY | Routin | 10/09/2011 | [...]
--- OUTSIDE RECORDS SUMMARY | ~2018-07-13 | XMS | Clinical Summary ---
Demographics + + + | Address | [address] | | | [place] [address] | + + + | Home Phone [...] [place] | | | | | [address] | | + + + + + Care Team Providers + +------+ + | Care Roof Truss Machine Tender Name | Role | Phone | + +------+ + | Zeyad May MD | PP | | + +------+ + Source Comments YOVANNY is fully live on both EpicCare Ambulatory and EpicCare InPatient.[facility] Allergies + + + + [...]
--- OUTSIDE RECORDS SUMMARY | ~2018-07-13 | XMS | Encounter Summary ---
Demographics + + + | Address | [address] | | | [place] [address] | + + + | Home Phone [...] [place] | | | | | [address] | | + + + + + Care Team Providers + +------+ + | Care Herb Counselor Name | Role | Phone | [...] | | | | | THERAPY | [place], [place] | for Health | | | | | REFERRAL | [address] | and Healing, | | | | | | Phone: | 1st floor | | | | | | [phone] | [place], [place] | | | | | | Fax: | [address] | | | | | | [phone] | Phone: | | | | | | | [phone] | | | | | | | Fax: | | | | | | | [phone] | +--------+--------+ + + + + Encounter Details +--------+---------+ + + + | Date | Type | Department | Care Team | Description | +--------+---------+ + + + | 10/08/ | Office | [facility] | Philly Rain, | Low back pain | | 2011 | Visit | Therapy Services at | PT [address] | (Primary Dx); | | | | [facility] | [address] | Herniated lumbar | | | | [address] | [place], [place] | intervertebral disc; | | | | Mailcode: CH3P | [address] | Lumbar | | | | [facility] | | radiculopathy; | | | | and Healing, 1st | | Degeneration of | | | | floor [place], [place] | | lumbar | | | | [address] | | intervertebral disc | | | | [phone] | | | +--------+---------+ + + + [...] might be different fr om the original. [id number] KEVON WELCH Date of : 1940 Start of care: 10/09/2011 Date of onset: 09/10/11 Referring/Attending Practitioner: Alcira Bocanegra PA . Primary/Referral Diagnosis/ICD-9: 724.2A Low back pain Insurance: Payor: ODS MEDICARE Plan: ODS MEDICARE Product Type: PPO Service period from: 10/09/2011 to: 11/08/11 Number visits used/authorized: 1/ Neurologist: [facility] [address] [place] [address] (Office) [facility] PHYSICAL THERAPY INITIAL EVALUATION SUBJECTIVE [...] Social History: lives with Recreational Activities/Hobbies: plays bassEco Cuizine; reading; does a lot of computer/keyboarding Functional [...] DF 4- 4+ L5 EHL 4 4+ L5-V9Ruhik Eversion 4 5 S1 Calf Raises 5 [...] change in their status. PHILLY RAIN PT [facility] RE[facility]IL[facility] AND HAND THERAPY [address] Mailcode: [address] [facility], 1st [facility] [address] documented in this e ncounter Plan of Treatment Not on filedocumented as of this encounter Procedures + +--------+ + + + | Procedure Name | Priori | Date/Time | Associated Diagnosis | Comments | | | ty | | | | + +--------+ + + + | ME THERAPEUTIC | Routin | 10/09/2011 | Low back pain | | | EXERCISES | e | 1:53 PM | | | | | | PDT | | | + +--------+ + + + | ME PHYS THERAPY | Routin | 10/09/2011 | [...]
--- OUTSIDE RECORDS SUMMARY | ~2018-07-13 | XMS | Encounter Summary ---
Demographics + + + | Address | [address] | | | [place] [address] | + + + | Home Phone [...] [place] | | | | | [address] | | + + + + + Care Team Providers + +------+ + | Care Stereo Equipment Repairer Name | Role | Phone | + +------+ + | Doyle Johnson MD | PCP | | + +------+ + Encounter Details +--------+ + + + + | Date | Type | Department | Care Team | Description | +--------+ + + + + | 05/19/ | Hospital | Radiology/Imaging | | | | 2013 | Encounter | Lab at [facility] [address] | | | | [address] Mailcode: | | | | | | [facility] | | | | | | Health and Healing, | | | | | | [address] [place] [address], | | | | | | [place] [address] | | | | | | [phone] | | | +--------+ + + + [...] | | + +---------+ + + | [facility] OF | | | | | RADIOLOGY | | | | + +---------+ + + documented in this encounter Visit Diagnoses + + | Diagnosis | + + | Shoulder pain Pain in joint, shoulder region | + + documented in this encounter"
--- OUTSIDE RECORDS SUMMARY | ~2018-07-13 | XMS | Encounter Summary ---
Demographics + + + | Address | [address] | | | [place] [address] | + + + | Home Phone [...] [place] | | | | | [address] | | + + + + + Care Team Providers + +------+ + | Care Call Center Receptionist Name | Role | Phone | [...] Dx) | | | | [facility] | [address] | | | | | [address] | [place], [place] | | | | | Mailcode: CH3P | [address] | | | | | [facility] | | | | | | and Healing, 1st | | | | | | floor [facility] [place] | | | | | | [address] | | | | | | [phone] | | | +--------+---------+ + + + [...] Acosta, PT - 02/13/2011 6:28 PM PST [id number] KEVON WELCH Date of : 1940 Start of care: 02/13/2011 Date of onset: 12/24/2010 Referring/Attending Practitioner: Misael Myers MD . Primary/Referral Diagnosis/ICD-9: Encounter Diagnoses Name Primary? 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 [...] closer to home in [facility] [place] Treatment began: 1005 Treatment ended: 1030 This note is to serve as the discharge summary if pt fails to attend further Physical Thera py appointments or contact the therapist regarding any change in their status. ALISE ACOSTA PT [facility] REHABILITATION SERVICES AND HAND THERAPY [address] Mailcode: [address] [address] documented in this encounter Plan [...] + +--------+ + + + | [place] PHYS THERAP[facility] | Routin | 02/13/2011 | [...]
--- OUTSIDE RECORDS SUMMARY | ~2018-07-13 | XMS | Encounter Summary ---
Demographics + + + | Address | [address] | | | [place] [address] | + + + | Home Phone [...] [place] | | | | | [address] | | + + + + + Care Team Providers + +------+ + | Care Battery Service Technician Name | Role | Phone [...] | | shoulder | Provider Per | [address] | | | | | pain | Patient NO | [address] | | | | | | REFERRING | [address] [place], | | | | | | PROVIDER PER | [place] | | | | | | PT | [address] | | | | | | | Phone: | | | | | | | [phone] | | | | | | | Fax: | | | | | | | [phone] | +--------+--------+ + + + + Encounter Details +--------+---------+ + + + | Date | Type | Department | Care Team | Description | +--------+---------+ + + + | 06/29/ | Office | Orthopaedics at | Misael Myers MD | Shoulder pain | | 2011 | Visit | [facility] [address] | [address] | (Primary Dx) | | | | Ave Mailcode: CH12A | [address] | | | | | [place] for [facility] | [place], [place] | | | | | and , | [address] | | | | | Floor [place], [place] | [phone] | | | | | [address] | | | | | | [phone] | | | +--------+---------+ + + + [...]
--- OUTSIDE RECORDS SUMMARY | ~2018-07-13 | XMS | Encounter Summary ---
Demographics + + + | Address | [address] | | | [place] [address] | + + + | Home Phone [...] [place] | | | | | [address] | | + + + + + Care Team Providers + +------+ + | Care Flarer Name | Role | Phone | + [...] | | | THERAPY | [facility] [place] | for Health | | | | | REFERRAL | [address] | and Healing, | | | | | | Phone: | 1st floor | | | | | | [phone] | [facility] [place] | | | | | | Fax: | [address] | | | | | | [phone] | Phone: | | | | | | | [phone] | | | | | | | Fax: | | | | | | | [phone] | +--------+--------+ + + + + Encounter Details +--------+---------+ + + + | Date | Type | Department | Care Team | Description | +--------+---------+ + + + | 10/22/ | Office | [facility] | Lena Rain, | Herniated lumbar | | 2011 | Visit | Therapy Services at | PT [address] | intervertebral disc; | | | | [facility] | [address] | Degeneration of | | | | [address] | [place], [place] | lumbar | | | | Mailcode: CH3P | [address] | intervertebral disc; | | | | [facility] | | Low back pain; | | | | and Healing, 1st | | Lumbar radiculopathy | | | | floor [place], [place] | | | | | | [address] | | | | | | [phone] | | | +--------+---------+ + + + [...] might be different fr om the original. [id number] KEVON WELCH Date of : 1940 Start of care: 10/09/2011 Date of onset: 09/10/11 Referring/Attending Practitioner: Alcira Bocanegra PA . Primary/Referral Diagnosis/ICD-9: 722.10H Herniated lumbar intervertebral disc Insurance: Payor: ODS MEDICARE Plan: ODS MEDICARE Product Type: PPO Service period from: 10/09/2011 to: 11/08/11 Number visits used/authorized: 5/ Neurologist: [facility] [address] [place] [address] (Office) [facility] PHYSICAL THERAPY SUBJECTIVE Age: 71 y.o. Sex: [...] month ago. 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 LENA RAIN PT [facility] REHABILITATION SERVICES AND HAND THERAPY [address] Mailcode: [facility], [address] [place] [address] documented in this e ncounter Plan of Treatment Not on filedocumented as of this encounter Procedures + +--------+ + + + | Procedure Name | Priori | Date/Time | Associated Diagnosis | Comments | | | ty | | | | + +--------+ + + + | NM THERAPEUTIC | Routin | 10/23/2011 | Herniated [...]
--- OUTSIDE RECORDS SUMMARY | ~2018-07-13 | XMS | Encounter Summary ---
Demographics + + + | Address | [address] | | | [place] [address] | + + + | Home Phone [...] [place] | | | | | [address] | | + + + + + Care Team Providers + +------+ + | Care Applied Statistician Name | Role | Phone | + [...] Therapy | Shoulder | MD Gordy | [address] | | | | | pain | [address] | [address] | | | | | Procedures | [address] | Mailcode: | | | | | PHYSICAL | Rd | [facility] | | | | | THERAPY | [place], [place] | for Health | | | | | REFERRAL | [address] | and Healing, | | | | | | | 1st floor | | | | | | | [place], [place] | | | | | | | [address] | | | | | | | Phone: | | | | | | | [phone] | | | | | | | Fax: | | | | | | | [phone] | +--------+--------+ + + + + Reason [...] | | | | | | [place], | | | | | | | [place] | | | | | | | [address] | | | | | | | Phone: | | | | | | | [phone] | | | | | | | Fax: | | | | | | | [phone] | +--------+--------+ + + + + Encounter Details +--------+---------+ + + + | Date | Type | Department | Care Team | Description | +--------+---------+ + + + | 05/19/ | Office | Orthopaedics at | Misael Myers MD | Shoulder pain | | 2013 | Visit | [facility] [address] | [address] | (Primary Dx) | | | | Ave Mailcode: CH12A | [address] | | | | | [place] [facility] | [place], [place] | | | | | and | [address] | | | | | Floor [place], [place] | [phone] | | | | | [address] | | | | | | [phone] | | | +--------+---------+ + + + [...]
--- OUTSIDE RECORDS SUMMARY | ~2018-07-13 | XMS | Encounter Summary ---
Demographics + + + | Address | [address] | | | [place] [address] | + + + | Home Phone [...] [place] | | | | | [address] | | + + + + + Care Team Providers + +------+ + | Care Integrated Marketing Specialist Name | Role | Phone | [...] | | | 2011 | Event | [facility] | BRAZING MACHINE OPERATOR AUTOMATIC [address] | | | | | and Healing Surgery | [facility] | | | | | Center Admitting | [place], [place] | | | | | Desk Located on the | [address] | | | | | 4th floor [address] | [phone] | | | | | [address] [place], | | | | | | [place] [address] | | | +--------+ + + + [...] nerve | Cannot be | | block ([facility], Single, I-Flow pump) | calculated | + [...]
--- OUTSIDE RECORDS SUMMARY | ~2018-07-13 | XMS | Encounter Summary ---
Demographics + + + | Address | [address] | | | [place] [address] | + + + | Home Phone [...] [place] | | | | | [address] | | + + + + + Care Team Providers + +------+ + | Care Piping Manager Name | Role | Phone | [...] | | | | | Procedures | [facility] | Mailcode: | | | | | PHYSICAL | Rd | [facility] | | | | | THERAPY | [place], [place] | for Health | | | | | REFERRAL | [address] | and Healing, | | | | | | | 1st floor | | | | | | | [place], [place] | | | | | | | [address] | | | | | | | Phone: | | | | | | | [phone] | | | | | | | Fax: | | | | | | | [phone] | +--------+--------+ + + + + Encounter [...] | | | | | [address] | [place], [place] | | | | | Mailcode: [facility] | [address] | | | | | [facility] | | | | | | and Healing, 1st | | | | | | floor [place], [place] | | | | | | [address] | | | | | | [phone] | | | +--------+---------+ + + + [...] [place], PT - 01/18/2014 10:57 AM PST [id number] KEVON WELCH Date of : 1940 Start of care: 05/19/2013 Date of onset: 03/21/2013 Referring/Attending Practitioner: Misael Myers Primary/Referral Diagnosis/ICD-9: Shoulder pain, right (primary encounter diagnosis) Insurance: Payor: [employer] MEDICARE Plan: [employer] MEDICARE Product Type: P PO Service period from: 05/19/2013 to 01/18/2014 Number visits used/authorized: 11/20 [facility] PHYSICAL THERAPY TREATMENT - [...] Right/Left 10/18/2013 Right 01/18/2014 Flexion 141 155 [id number]* [id number] Pre 125* Post 140 145 145/150 156 Abduction 146 150 [id number]* [id number] Pre 95* Post 132 144 140/145 150 [...] end of session. 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 Pt will be discharged to [facility] t home exercise program at this [...] change in their status. Alise [place], PT [facility] REHABILITATION SERVICES AND HAND THERAPY [address] Mailcode: [place] [address] documented in this encounter Plan of Treatment Not on filedocumented as of this encounter Procedures + +--------+ + + + | Procedure Name | Priori | Date/Time | Associated Diagnosis | Comments | | | ty | | | | + +--------+ + + + | PA MANUAL THER | Routin | 01/18/2014 | Shoulder pain, | | | TECH,1+REGIONS,EA 15 | e | 1:58 PM | right | | | MIN | | PST | | | + +--------+ + + + | PA THERAPEUTIC | Routin | 01/18/2014 | Shoulder [...]
[~2018-07-13 10:20] MED LIST: ASPIRIN EC81 MG PO; IBUPROFEN600 MG PO; MAPAP325 MG PO; MOTRIN IB200 MG PO; OXYCODON-ACETA1 EAC2 PO; PERCOCET 5-3251 EACH PO
--- NOTE | 2018-07-13 14:41 | NUR ---
07/13/18 1441 Ana Luisa Daley 1425-PATIENT ARRIVED TO PACU ON 6L MASK NONAROUSABLE ORAL AIRWAY IN PLACE. RR EVEN. SR. INCISION TO RIGHT GROIN CDI ICE APPLIED. 1427-PATIENT REACHING TO MOUTH WITH RIGHT HAND EYES CLOSED OPENING MOUTH ORAL AIRWAY REMOVED. PATIENT MOVING ARMS NOT FOLLOWING COMMANDS. 1436-PATIENT AROUSING TO VERBAL STIMULI REPORTING "NEED TO PEE" PATIENT ABLE TO POSITION SELF TO RIGHT SIDE AND URINAL PLACED. PATIENT PLACED ON RA.
--- NOTE | 2018-07-13 15:43 | NUR ---
ICED WATER GIVEN. SPOUSE AT BEDSIDE. CALL LIGHT W/IN REACH. PATIENT TAKES A SIP OF WATER AND TOLERATES THAT. PATIENT DENIES DESIRE FOR FOOD AT THIS TIME. PATIENT RATES PAIN 10+ ON PAIN SCALE. EDUCATION DONE AND PATIENT RATES HIS PAIN 8/10 ON PAIN SCALE. CONTINUOUS PULSE OXIMETER IN PLACE.
--- NOTE | 2018-07-13 15:56 | NUR ---
I LEAVE PATIENT'S ROOM TO RETRIEVE PRN FOR PAIN. PATIENT'S OXYGEN SATURATION DECREASES TO 92% ON ROOM AIR AND PATIENT IS HEARD SNORING. RESPIRATIONS ARE EVEN AND UNLABORED. NO NON-VERBAL SIGNS OF PAIN ARE NOTED.
--- NOTE | 2018-07-13 16:43 | NUR ---
PATIENT PUSHES CALL LIGHT AND REPORTS BEING HOT. ZORA TELLYGGER ON COOL. PATIENT FALLS ASLEEP WHILE I AM TALKING TO HIM. SPOUSE REMAINS AT THE BEDSIDE. CONTINUOUS PULSE OXIMETER REMAINS IN PLACE. PATIENT DOES DROP TO 88% ON RA WHILE SLEEPING. PATIENT ROUSES HIMSELF AND OXYGEN SATURATION INCREASES TO 95% ON RA.
[2018-07-13] MEDS ORDERED: DILAUDID4 MG PO (16:53)
--- NOTE | 2018-07-13 16:57 | NUR ---
CALL TO [facility] [employer] [facility]PER[facility] AND [facility]-SURGE FLOOR. PATIENT WILL TRANSFER TO ROOM 112 FOR EXTENDED RECOVERY UNTIL CRITERIA IS MET.
--- NOTE | 2018-07-13 17:30 | NUR ---
PT ARRIVED FROM DAY SURGERY. REPORT RECEIVED FROM AZIZA MCCARTY. PT REPORTS FEELING "HOT." PT REPORTS PAIN AT 6/10 AND NAUSEA. SEE MAR FOR MEDICATION GIVEN. DRESSING C/D/I. AT BEDSIDE. CALL LIGHT WITHIN REACH. CPOX IN PLACE READING 97% ON ROOM AIR.
--- NOTE | 2018-07-13 18:22 | NUR ---
VITALS DUE. ASSESSMENT DONE. PT CONTINUES TO REPORT 6/10 CRAMPING PAIN ADN TIGHTNESS. BLADDER SCANNED, SHOWS 85ML. QUICKLY DRIFTS OFF TO SLEEP THIS RN IS TALKING TO HIM. PT DENIES NAUSEA AT THIS TIME. AT BEDSIDE. CALL LIGHT WITHIN REACH.
--- NOTE | 2018-07-13 18:55 | NUR ---
PUMP ALARMING. THIS RN TO BEDSIDE. DISTAL OCCLUSION, FLUIDS RESTARTED. PT REPORTS 9/10 PAIN. ABDOMEN FIRM. COMPENSATOR TO BEDSIDE. 0.4 OF DILAUDID GIVEN. PT CONTINUES TO BE DIAPHORETIC. BLOOD SURGAR TAKEN = 168. PT CONTINUES TO REPORT 9/10 PAIN. ADDITIONAL 0.6MG DILAUDID GIVEN TO TITRATE UP TO FULL DOSE. PT CONTINUES TO REPORT 9/10 CRAMPING PAIN STATING "IT'S JUST TIGHT A ROCK AND WON'T LET UP." PT GROANING, CLUTCHING AT STOMACH, AND JUMPING AT TIMES. PT ENCOURAGED TO TRY PO JELLO WITH ORAL PAIN MEDICATION. PT TOLERATING BITES OF JELLO. ORAL DILAUDID GIVEN. PT RESTING WITH EYES CLOES. RR = 16. RESPIRATIONS EVEN AND UNLABORED. O2 95% ON ROOM AIR. AT BEDSIDE. BED RAILS UP. CALL LIGHT WITHIN REACH.
--- NOTE | 2018-07-13 19:37 | NUR ---
.IN ROOM FOR REPORT, PT'S IS AT BEDSIDE. PT DENIES NEEDS AT THIS TIME. CALL LIGHT IS CLOSE.
--- NOTE | 2018-07-13 20:04 | NUR ---
IN ROOM D/T IV PUMP BEEPING. PT DENIES NEEDS AT THIS TIME. CALL LIGHT IS CLOSE.
--- NOTE | 2018-07-13 20:15 | OR ---
[facility] [address], [place] [address] Signed DATE OF OPERATION: 07/13/2018 SURGEON: Erick Davis MD PREOPERATIVE DIAGNOSIS: Incarcerated recurrent right inguinal hernia. POSTOPERATIVE DIAGNOSIS: Right femoral hernia. PROCEDURE: Inguinal primary suture repair (Bassini) of right femoral hernia. ESTIMATED BLOOD LOSS: None. FINDINGS: Kevon clearly had a typical right femoral hernia. The fascial defect was probably 5 mm. There was herniated perineum associated with some fat in the peritoneal wall. The contents of the hernia sac were already reduced inside the abdomen at the time of the surgery. 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 He and his just build a house upon [address] and then moved in recently. He had been having some trouble with some pain and swelling in that right groin. Apparently, he had bilateral inguinal hernia repairs performed about 7 to [address] Montana utilizing mesh. This morning, when he woke up, he was having a lot of pain in the right groin and he could not reduce the hernia. He decided to come the emergency room for evaluation. In the emergency room, he was given Versed and fentanyl by the ER physician and the hernia could not be reduced. I was asked to see him urgently in the emergency room. Again, I could not reduce the hernia either. I spoke with Kevon and his and explained that we needed to take him to the operating room urgently, so we could repair his hernia. We reviewed the nature of inguinal hernia surgery along with the risks including, but not limited to bleeding, infection, scarring, change in contour of the skin, damage to the nerves, ischemic orchitis, recurrent hernias, and chronic pain. Of course, there is always the possibility of a bowel resection with anastomosis and anastomotic leak and so forth. They had expressed understanding and wished to proceed. Electronically Signed By: ERICK DAVIS MD 07/13/182014 PATIENT NAME: KEVON KATZ OPERATIVE REPORT DATE OF : 42 REPORT #: [id number] PHYSICIAN: ERICK DAVIS MD PCP: ZEYAD ISRAEL MD REPORT IS CONFIDENTIAL AND NOT TO BE RELEASED WITHOUT AUTHORIZATION [facility] [address], [place] [address] Signed PROCEDURE NOTE: I had met with Kevon and his once again in our preop area along with our anesthesia provider. After answering his questions, he was taken into the operating room and placed in the supine position under general endotracheal tube anesthesia. He was given preoperative antibiotics along with subcutaneous heparin. SCDs were utilized. He was then prepped and draped in the usual sterile fashion. Even with pharmacologic paralysis of his muscles, we did not feel we could reduce the hernia. We noticed that the inguinal incision was a little bit superior to his hernia. Consequently, we thought this could be a femoral hernia. We went ahead and utilized the same incision and we developed that sharply with the cautery. Sure enough, he had a standard infrainguinal femoral hernia. Conscious of the nerve, artery, and vein, we carefully worked our way around. The hernia sac, which was quite thickened by the way. It contained a certain amount of fat as well. When we opened the hernia sac, we came to a dark vein and he had some dark blood into the hernia sac. Otherwise, the hernia sac was quite clean. Inside the hernia sac, there were no contents. I was able to easily pass my finger down to the fascial defect, which was about 5 mm. This was quite common with femoral hernias. I placed a 2-0 pursestring PDS suture at the neck of the hernia sac and very carefully amputated that with the help of the cautery. The hernia sac easily reduced in the abdomen. He had just a little better fat coming alongside the hernia sac and it was also reduced as well. We examined it carefully as we worked and clearly this was not the bladder. We could easily pass our Pean clamp into the hernia sac and up into the abdomen. There was no resistance, whatsoever. Rather than put him through a much more extensive surgery where we replaced the hernia on the top of the femoral canal, we went ahead and did a primary suture repair with an interrupted [id number] #1 Prolene suture. We again probed the area with our Pean clamp and closed the fascial defect quite nicely. After this, local anesthetic was injected into the wound, again attention was maintained of the nerve, artery, and vein. The wound was irrigated and suctioned out until cleared. We then closed the subcutaneous tissues gently with interrupted 3-0 Monocryl sutures. The dermis was reapproximated with interrupted 3-0 subcuticular Monocryl sutures. The skin edges were reapproximated with running 6-0 fast absorbing plain gut suture. Dry gauze and tape were then applied. Kevon was awakened from his anesthesia, extubated in the OR, and taken to recovery room in stable condition. We did note that his heart rate runs in the 40s and he told me he has been in the 40s and 50s his whole life. Apparently, his mother was the same way. His mother got admitted for a day for observation and everything was fine. Kevon said he is completely asymptomatic with that bradycardia. Overall, Kevon tolerated the procedure quite well. Erick Davis MD Electronically Signed By: ERICK DAVIS MD 07/13/182014 PATIENT NAME: KEVON KATZ OPERATIVE REPORT DATE OF : 42 REPORT #: [id number] PHYSICIAN: ERICK DAVIS MD PCP: ZEYAD ISRAEL MD REPORT IS CONFIDENTIAL AND NOT TO BE RELEASED WITHOUT AUTHORIZATION [address] [place], [place] [address] Signed [facility]/MODL /[id number] cc: MD Zeyad Andersen MD Copies: ERICK DAVIS MD, MALCOLM MD ~ Electronically Signed By: ERICK DAVIS MD 07/13/182014 PATIENT NAME: KEVON KATZ OPERATIVE REPORT DATE OF : 42 REPORT #: [id number] PHYSICIAN: ERICK DAVIS MD PCP: ZEYAD ISRAEL MD REPORT IS CONFIDENTIAL AND NOT TO BE RELEASED WITHOUT AUTHORIZATION
--- NOTE | 2018-07-13 20:15 | CONS ---
[facility] [address] [place], [place] [address] Signed DATE OF CONSULTATION: 07/13/2018 CHIEF COMPLAINT: Right groin pain and swelling. HISTORY OF PRESENT ILLNESS: Kevon is a 77-year-old gentleman, quite healthy, who had bilateral inguinal hernia repairs with Dr. Montana around 7 to 10 years ago. They had built and moved into a new house here in [place], [place] in the last few weeks. He started having pain and swelling in that right groin. This morning, it was very intense and he could not push it back inside. He therefore came to emergency room for evaluation. In emergency room, he received Versed and fentanyl and still the hernia could not be reduced. Consequently, I was asked to see Kevon urgently here in the emergency room. PAST MEDICAL HISTORY: Mild obstructive sleep apnea. PAST SURGICAL HISTORY: Bilateral inguinal hernia repairs with mesh with Dr. Montana 7 to 10 years ago, lumbar surgery without metal remaining, laparoscopic cholecystectomy, and bilateral cataract surgery. He had uvulectomy for his obstructive sleep apnea and he had right knee surgery at age 19 without metal remaining. SOCIAL HISTORY: He does not smoke. He has a drink about once a night or every other night. He is to his at #[phone]. He has 2 children. 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 They prefer the [facility] [address] Zeyad May is the primary care provider. FAMILY HISTORY: Mom at 95 and dad was a physician and at age 104. REVIEW OF SYSTEMS: He had 10 systems reviewed and really nothing to add other than what we reviewed above. ALLERGIES: Codeine. MEDICATIONS: He takes vitamins once a day for his eyes. PHYSICAL EXAMINATION: VITAL SIGNS: Blood pressure is 193/70, heart rate 52, respiratory rate 16, and Electronically Signed By: ERICK DAVIS MD 07/13/182014 PATIENT NAME: KEVON KATZ CONSULTATION DATE OF : 42 REPORT #: [id number] PHYSICIAN: ERICK DAVIS MD PCP: ZEYAD MAY MD REPORT IS CONFIDENTIAL AND NOT TO BE RELEASED WITHOUT AUTHORIZATION [facility] [address] [place], [place] [address] Signed temperature 97.0. He is 5 feet 8 inches tall and weighs 70 kg. GENERAL: Kevon is a 77-year-old gentleman, who is currently sedated. He is arousable to awake, but otherwise not particularly helpful. LUNGS: Generally clear to auscultation bilaterally. HEART: Regular rate and rhythm. ABDOMEN: Soft, flat, and nontender. He clearly has a mass high in the right inguinal canal. I spent a couple minutes and I could not reduce it either. DIAGNOSTIC DATA: Labs are pending. EKG pending. X-rays, none. ASSESSMENT AND PLAN: Kevon is a 77-year-old gentleman, who presents with a strangulated recurrent right inguinal hernia. I had a long discussion with his . She is actually very knowledgeable and very helpful. I reviewed with her the nature of an inguinal hernia surgery along with the expected intraop and postop course. There is risk to surgery including, but not limited to bleeding, infection, scarring, change in contour of the skin, damage to the nerves, ischemic orchitis, recurrent hernias, and chronic pain. There is also the chance that this involves small intestine and the possibility of a small bowel resection with up to a 3% chance it leaks. She had expressed understanding and wished to proceed. Of course, Kevon agreed. We are talking to [place] currently and we should be headed down shortly. Erick Davis MD [facility]/MODL /[id number] cc: MD Zeyad Andersen MD Copies: ERICK DAVIS MD, MALCOLM MD ~ Electronically Signed By: ERICK DAVIS MD 07/13/182014 PATIENT NAME: KEVON KATZ CONSULTATION DATE OF : 42 REPORT #: [id number] PHYSICIAN: ERICK DAVIS MD PCP: ZEYAD MAY MD REPORT IS CONFIDENTIAL AND NOT TO BE RELEASED WITHOUT AUTHORIZATION
--- NOTE | 2018-07-13 21:09 | NUR ---
PT REPORTS PAIN 6/10 BUT FALLS ASLEEP MID-CONVERSATION. HIS HAS BEEN HERE BUT WILL LEAVE SOON. DRESSING IN RIGHT INGUINAL AREA IS CDI AND PT HAS ICE IN PLACE. CPOX IN PLACE AND O2 SATURATION IS WNL. PT IS VERY SLOW TO RESPOND AND SLOW TO GET HIS THOUGHTS OUT. HE DENIES NEEDS AT THIS TIME. CALL LIGHT IS CLOSE AND BED ALARM IS ON.
--- NOTE | 2018-07-13 21:19 | NUR ---
ENTERED ROOM TO FIX BEEPING IV. PT DENIES NEEDS. CALL LIGHT IS CLOSE AND BED ALARM IS ON.
--- NOTE | 2018-07-13 22:14 | NUR ---
IN ROOM TO ADMINISTER PAIN MEDICATION. PT STATES HIS PAIN IS 6/10 AND IS GRIMACING. HE DENIES FURTHER NEEDS AT THIS TIME. CALL LIGHT IS CLOSE.
--- NOTE | 2018-07-14 00:10 | NUR ---
PT IS RESTING WITH EYES CLOSED, RESPIRATIONS ARE EVEN AND NONLABORED. CALL LIGHT IS CLOSE.
--- NOTE | 2018-07-14 01:17 | NUR ---
PT IS RESTING WITH EYES CLOSED, RESPIRATIONS ARE EVEN AND NONLABORED. CALL LIGHT IS WITHIN REACH.
--- NOTE | 2018-07-14 04:45 | NUR ---
PT IS RESTING WITH EYES CLOSED, RESPIRATIONS ARE EVEN AND NONLABORED. CALL LIGHT IS WITHIN REACH.
--- NOTE | 2018-07-14 06:20 | NUR ---
ASSITED PT TO THE RESTROOM TO VOID. HE DENIES THE NEED FOR PAIN MEDICINE AT THIS TIME. DEAN CORTEZ WILL ASSIST PT BACK TO BED.
--- NOTE | 2018-07-14 07:35 | NUR ---
SPOKE WITH DR DAVIS TO GIVE AN UPDATE AND LET HIM KNOW THE PT'S URINE OUTPUT WAS 350 FOR THE NIGHT. HE SAID IF PT HAS MET ALL THE CRITERIA LET HIM GO HOME. WILL PASS ALONG TO DAY SHIFT RN.
--- NOTE | 2018-07-14 07:49 | NUR ---
0723: BEDSIDE REPORT RECEIVED FROM MOJGAN ERVIN. PT DENIES ANY PROBLEMS OTHER THAN A "DRY MOUTH". PT HANDED HIS WATER, HIS CALL JORDAN REMAINS WITHIN REACH. PT DENIES ANY OTHER PROBLEMS AT THIS TIME.
--- NOTE | 2018-07-14 09:08 | NUR ---
PATIENT IN BED, AND RN IN ROOM. FRESH WATER GIVEN. NO VOID, RN NOTIFIED. CALL LIGHT IN REACH. NO FURTHER NEEDS AT THIS TIME.
--- NOTE | 2018-07-14 10:56 | NUR ---
PT STATES HIS PAIN LEVEL IS NOW A 6 AND IS UNSURE IF IT IS ACCEPTABLE. HE IS HOWEVER DROWSY AFTER RECIVING HIS LAST DOSE OF PAIN MEDICATION AND FELL TO SLEEP WHILE I WAS IN HIS ROOM.
--- NOTE | 2018-07-14 10:57 | NUR ---
DC INSTRUCTIONS GIVEN, VERBAL AND WRITTEN TO THE PT AND HIS WITH UNDERSTANDING STATED. VSS, IV SITES DC'D WITH TIPS INTACT.
--- NOTE | 2018-07-14 11:06 | NUR ---
Pt getting dressed with his helping him at this time.
--- NOTE | 2018-07-14 11:37 | NUR ---
1130: Pt discharged at this time with his .
--- NOTE | 2018-07-14 20:37 | EKG ---
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
== END 2018-07-14 12:15 | disposition home or self-care (01) ==
LOC: ED 10:20 → MS 10:22 → ED 10:22 → MS 10:22 → DSVR 14:44 → DS 15:00 → MS 17:30 → DSVR 17:30 → MS 07-14 11:30 → DS 07-14 12:15
PROVIDERS: Colon & Rectal Surgery
PROC: 0YQ70ZZ Repair Right Femoral Region, Open Approach (ICD-10-PCS; principal; 2018-07-13 13:00)
DX: K41.90 Unilateral femoral hernia, without obstruction or gangrene, not specified as recurrent (principal); G47.33 Obstructive sleep apnea (adult) (pediatric); Z88.5 Allergy status to narcotic agent
CPT/HCPCS: 00830; 80053; 81001; 85025; 93005; 93010; 96374; 96375; 99285-25; J0330; J0690; J1100; J1170; J1644; J1885; J2250; J2405; J2704; J3010; J7120

== ENCOUNTER 2018-07-16 03:46 | Inpatient (IN) | payer MEDICARE ==
[~2018-07-16] VITALS: Ht 172.7 cm; Wt 70.8 kg
--- OUTSIDE RECORDS SUMMARY | ~2018-07-16 | XMS | Clinical Summary ---
Demographics + + + | Address | [address] | | | [place] [address] | + + + | Home Phone | | + + + | Preferred Language | Unknown | + + + | Marital Status | | + + + | Taoist Affiliation | NON | + + + [...] [place] | | | | | [address] | | + + + + + Care Team Providers + +------+ + | Care Designer Writer Name | Role | Phone | + +------+ + | Zeyad May MD | PP | | + +------+ + Source Comments YOVANNY is fully live on both EpicCare Ambulatory and EpicCare InPatient.[facility] Allergies + + + + + + [...]
--- OUTSIDE RECORDS SUMMARY | ~2018-07-16 | XMS | Encounter Summary ---
Demographics + + + | Address | [address] | | | [place] [address] | + + + | Home Phone | | + + + | Preferred Language | Unknown | + + + | Marital Status | | + + + | Orthodox Affiliation | NON | + + + | Race | White | + + + | Ethnic Group | Not or | + + + Author + + + | Author | [facility] | + + + | Organization | [facility] | + + + | Address | Unknown | + + + | Phone | Unavailable | + + + Support + + + + + | Name | Relationship | Address | Phone | + + + + + | Elizabeth Welch | ECON | [address] | | | | | [place] | | | | | [address] | | + + + + + Care Team Providers + +------+ + | Care Historic Sites Supervisor Name | Role | Phone | + +------+ + | Doyle Johnson MD | PCP | Unavailable | + +------+ + Reason for Visit + + + | Reason | Comments | + + + | LBP - Low back pain | | + + + Physical Therapy (Routine) +--------+--------+ + + + + | Status | Reason | Specialty | Diagnoses / | Referred By | Referred To | | | | | Procedures | Contact | Contact | +--------+--------+ + + + + | Closed | | Physical | Diagnoses | Daljit | [facility] | | | | Therapy | Shoulder | VIANEY Eli | [address] | | | | | pain | [address] | [address] | | | | | Procedures | [facility] | Mailcode: | | | | | PHYSICAL | Rd | [facility] | | | | | THERAPY | [place], [place] | for Health | | | | | REFERRAL | [address] | and Healing, | | | | | | Phone: | 1st floor | | | | | | [phone] | [place], [place] | | | | | | Fax: | [address] | | | | | | [phone] | Phone: | | | | | | | [phone] | | | | | | | Fax: | | | | | | | [phone] | +--------+--------+ + + + + Encounter Details +--------+---------+ + + + | Date | Type | Department | Care Team | Description | +--------+---------+ + + + | 10/19/ | Office | [facility] | Lena Rain, | Shoulder pain; Low | | 2011 | Visit | Therapy Services at | PT [address] | back pain; Lumbar | | | | [facility] | [facility] [address] | radiculopathy; | | | | [address] | [place], [place] | Herniated lumbar | | | | Mailcode: [facility] | [address] | intervertebral disc; | | | | [facility] | | Degeneration of | | | | and Healing, 1st | | lumbar | | | | floor [place], [place] | | intervertebral disc | | | | [address] | | | | | | [phone] | | | +--------+---------+ + + + Social History + +-------+ [...] recent travel history available. | + + documented as of this encounter Progress Notes Lena Rain, PT - 10/20/2011 2:17 PM PDTFormatting of this note might be different fr om the original. [id number] KEVON WELCH Date of : 1940 Start of care: 10/09/2011 Date of onset: 09/10/11 Referring/Attending Practitioner: Alcira Bocanegra PA . Primary/Referral Diagnosis/ICD-9: 722.10H Herniated lumbar intervertebral disc Insurance: Payor: ODS MEDICARE Plan: ODS MEDICARE Product Type: PPO Service period from: 10/09/2011 to: 11/08/11 Number visits used/authorized: 4/ Neurologist: Dr. Rafal Benites [facility] [address] [place] [address] (Office) [facility] PHYSICAL THERAPY SUBJECTIVE Age: 71 y.o. Sex: male Chief complaint: Today's report: Pt notes that his symptoms are improving, the ankle dorsiflexion strength is unchanged He seems like he can go further with the seated STRAIGHT LEG RAISE test History of Presenting Problems: Kevon Welch is a 71 y.o. male with c/o LBP that began about a month ago. 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 He went to the chiropractor acutely which increased his low back for a day or two, then started to feel a little better. At follow up, the chiropractor felt he needed an xray, so one was ordered. He was then followed up by his PCP and then a neurologist about 1 1/2 weeks later as he started to have symptoms of R foot drop. He had a n MRI with a diagnosis of "herniated disc at L3-4 with part of the material dropping down to L5 along the L4 nerve; that's why I was getting pain into the back of my R leg". He now re ports that he is regaining his foot strength but he can't walk on his heels. Per the MD/neurology note received on 10/09/11 after pt's appt: "At the L3-L4 he has what ap pears to be a large disc herniation with inferior migration. I suspect he is compressing th e L5 nerve root before its exit point because of this inferior disc migration." and "I thin k the L5 nerve root is probably compressed before its exit point by the disc herniation" See s a neuro surgeon on 10/29/11 for surgical consult. Past Medical History 08/04/11 Procedure: 1. left arthroscopic subacromial decompression. 2. left arthroscopic distal clavicle resection. 3. left arthroscopic shoulder limited synovectomy and labral debridement has a past medical history of NELY (obstructive sleep apnea). He also has no past medic al history of Difficult intubation; MALIGNANT HYPERTHERMIA; PONV (postoperative nausea and v omiting); or Spinal headache. Past Surgical History: has past surgical history that includes lipoma exicison 2002; UPPP 2005; knee procedure 1958; and colonoscopy-last 2009. Social History: lives with Recreational Activities/Hobbies: plays [employer]; reading; does a lot of computer/keyboarding Functional limitations:Walking more than 2 blocks he starts to feel fatigue in anterior tib ialis Patients goals: resume prior level of function, decrease pain OBJECTIVE: Ambulation into PT without device. Gait is slow, guarded, decreased arm swing Can walk with ankle/toes in DF on R with decreased balance and ROM on R Seated STRAIGHT LEG RAISE -45 degrees on R Supine STRAIGHT LEG RAISE -45 degrees on R Palpation: R LE negative along course of sciatic nerve until the calf, less tender "like a sore muscle" here, increases with DF of ankle, fells like stretch Lower [facility] Neuro Screen Updated 10/16/11 Segmental Strength Test Right Left Impact Test L1-3 hip flexion na na L3 knee Extension 5 5 L4-5 hip abduction 4 5 L4 Ankle DF 4- 5 S1 Calf Raises 5 5 S1 Hamstrings 5 5 THERAPEUTIC EXERCISE x45 min Reviewed basic breathing patterns to facilitate Transverse abdominus contraction; pt requir ed mod cues to avoid valsava and pushing out of abdominals Instructed how to find NS in supine, quadruped, sitting Hooklying TrA contraction maintain NS Hooklying Bent Knee Fallouts- alternate legs, maintain NS Intervention Date* Comments Compliance 10/10/2011 Predicted: good Seated Sciatic nerve glides: Seated ankle DF/PF:10x Seated HS glides:10x Seated Chin tucks/Head nods:10x 10/10/2011 Cat and camel 10/10/2011 sidelying hip abduction 10/10/2011 Supine figure 4 and piriformis stretch 10/10/2011 Supine hooklying Transverse abdominus activation 10/20/11 Sitting, supine, standing Supine hooklying Transverse abdominus activation with Bent knee fall out 10/20/11 Calf stretch- long sitting 10/20/11 3x60 sec * indicates date intervention started. 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 Pt demonstrates decreased balance and decreased functional lumbar ROM as w ell. Pt would benefit form continued PT Kevon's Goals: decrease pain in R LE and LB; learn management techniques; return to PLOF Date Goals Date (status f/u) Status 10/09/2011 Independent with home exercise program 4 weeks Independent in pain management strategies 4 weeks Pt will be able to sleep through the night without waking due to pain 5/7 nights 8 weeks Pt will be able to work at computer 30 minutes without exacerbating pain 8 weeks Pt will be able to do light gardening 60 minutes without exacerbating pain 12 weeks PLAN: Continue with sciatic nerve desensitization as well as basic lumbopelvic stabilization exer cises; also progress walking and functional mobility as tolerated Caution with exercises supine as pt has pain with laying manual therapy, postural education, lumbo-pelvic stabilisation training , neurodynamic mobi lisation, strength and conditioning. Frequency/Duration: 1-2x per week, decreasing frequency to accomadate long drive from [place] Duration in months: 1-2months Treatment began: 1400 Treatment ended: 1445 This note is to serve as the discharge summary if Kevon fails to attend further Physical Th erapy appointments or contact the therapist regarding any change in their status. LENA RAIN PT [facility] AND HAND THERAPY [address] Mailcode: [facility], [address] [facility] [address] documented in this e ncounter Plan of Treatment Not on filedocumented as of this encounter Procedures + +--------+ + + + | Procedure Name | Priori | Date/Time | Associated Diagnosis | Comments | | | ty | | | | + +--------+ + + + | PA THERAPEUTIC | Routin | 10/24/2011 | Shoulder pain Low | | | EXERCISES | e | 7:46 PM | back pain Lumbar | | | | | PDT | radiculopathy | | | | | | Herniated lumbar | | | | | | intervertebral disc | | | | | | Degeneration of | | | | | | lumbar | | | | | | intervertebral disc | | + +--------+ + + + documented in this encounter Visit Diagnoses + + | Diagnosis | + + | Shoulder pain Pain in joint, shoulder region | + + | Low back pain Lumbago | + + | Lumbar radiculopathy Thoracic or lumbosacral neuritis or radiculitis, unspecified | + + | Herniated lumbar intervertebral disc Displacement of lumbar intervertebral disc | | without myelopathy | + + | Degeneration of lumbar intervertebral disc Degeneration of lumbar or lumbosacral | | intervertebral disc | + + documented in this encounter
--- OUTSIDE RECORDS SUMMARY | ~2018-07-16 | XMS | Encounter Summary ---
Demographics + + + | Address | [address] | | | [place] [address] | + + + | Home Phone | | + + + | Preferred Language | Unknown | + + + | Marital Status | | + + + | Anglican Affiliation | NON | + + + | Race | White | + + + | Ethnic Group | Not or | + + + Author + + + | Author | [facility] | + + + | Organization | [facility] | + + + | Address | Unknown | + + + | Phone | Unavailable | + + + Support + + + + + | Name | Relationship | Address | Phone | + + + + + | Elizabeth Welch | ECON | [address] | | | | | [place] | | | | | [address] | | + + + + + Care Team Providers + +------+ + | Care Double Cutter Name | Role | Phone | + +------+ + | Doyle Johnson MD | PCP | Unavailable | + +------+ + Reason for Visit Physical Therapy (Routine) +--------+--------+ + + + + | Status | Reason | Specialty | Diagnoses / | Referred By | Referred To | | | | | Procedures | Contact | Contact | +--------+--------+ + + + + | Closed | | Physical | Diagnoses | Sothern, | [facility] | | | | Therapy | Shoulder | VIANEY Alaniz | [address] | | | | | pain | [address] | [address] | | | | | Procedures | Ave | Mailcode: | | | | | PHYSICAL | [facility] [place] | [facility] | | | | | THERAPY | [address] | for Health | | | | | REFERRAL | Phone: | and Healing, | | | | | | [phone] | 1st floor | | | | | | Fax: | [place], [place] | | | | | | [phone] | [address] | | | | | | | Phone: | | | | | | | [phone] | | | | | | | Fax: | | | | | | | [phone] | +--------+--------+ + + + + Encounter Details +--------+---------+ + + + | Date | Type | Department | Care Team | Description | +--------+---------+ + + + | 08/31/ | Office | [facility] | Lena Rain, | Shoulder pain | | 2011 | Visit | Therapy Services at | PT [address] | (Primary Dx) | | | | [facility] | [address] | | | | | [address] | [place], [place] | | | | | Mailcode: [facility] | [address] | | | | | [facility] | | | | | | and Healing, 1st | | | | | | floor [facility] [place] | | | | | | [address] | | | | | | [phone] | | | +--------+---------+ + + + [...] documented as of this encounter Progress Notes AlexeybingLena, PT - 09/01/2011 4:05 PM PDTFormatting of this note might be different fr om the original. [id number] KEVON WELCH Date of : 1940 Start of care: 07/24/11 Date of onset:07/22/11 Referring/Attending Practitioner: Misael Myers MD . Primary/Referral Diagnosis/ICD-9: Encounter Diagnoses Name Primary? Shoulder pain Yes Insurance: Payor: ODS MEDICARE Plan: ODS MEDICARE Product Type: PPO Service period from: 08/24/11-10/23/11 Number visits used/authorized: 5 [place] PHYSICAL THERAPY: Post-op SHOULDER PO week 6 S/P Arthroscopic SAD, DCE, labral debridement Subjective: Pt reports that his shoulder pain is better; still having what appears to be bicipital pain and has a knot in that proximal arm area that seems to be getting worse Pain 0/10 at rest; tylenol has really seemed to help with ROM tolerance Using sling more to help resolve his pain in the shoulder and biceps has helped him use the shoulder less during ADLs History of Presenting Problem: Kevon Welch is a 70 y.o. male who presents with l eft shoulder pain resulting in decreased strength and range of motion. Has noticed increasi ng pain since December of 2010. Pt is right hand dominant. History of right rotator cuff t ear, now fully healed and pain free. Per MD: + partial thickness RC tear, no retraction, AC joint arthritis, no obvious biceps p athology Kevon's Goals: 1. Decrease shoulder pain 2. Complete daily activities 3. Learn post op protocol OBJECTIVE: Observation: wearing basic sling correctly Posture/alignment: Rounded shoulders, forward head Palpation:TTP LH bicep; bicep -firm mm knot in at insertion of deltoid and biceps-still pr esent PROM: post RX FLEX 120 degrees in sidelying ER: 10 degrees pre RX; post RX: 40* sidelying IR to belly behind back: buttock MANUAL THERAPY x30 Soft tissue mobilization biceps and deltoid to reduce mm spasm and guarding PROM for SCAPTION In sidelying, ER in sidelying, ER in sidelying for LLPS 5 min each dire ction Soft tissue mobilization periscapula, posterior shoulder Subscapularis release with scapular distraction Grade 1-2 joint mobilization for GH joint for pain relief THERAPEUTIC EXERCISE x10 Treatment consisted of reviewing post operative home exercise program Intervention Date* Ball squeezes 07/24/11 1 set of 10 reps, 3 x daily Wrist flexion/extension 07/24/11 1 set of 10 reps, 3 x daily Forearm supination/pronation 07/24/11 1 set of 10 reps, 3 x daily Pendulums-passive 07/24/11 REVIEWED 08/04/11 Elbow flexion A/AAROM as tolerated 07/24/11 1 set of 10 reps, 3 x daily Passive shoulder flexion supine with partner or univolved extremity assist 08/20/11 1 set 1 0 reps, 3 x daily Change to sidelying Passive supine external rotation with cane assist 08/20/11 1 set 10 reps, 3 x daily Change to sidelying or sitting; add contract relax 09/01/11 Passive supine shoulder scaption w with partner assist 07/24/11 1 set 10 reps, 3 x daily Shoulder blade pinches 07/24/11 1 set 20 reps, hold 5 seconds each rep, 3 x daily Neck stretches (flexion, sidebend, rotation) 07/24/11 1 set 10 reps, 3 x daily. 2-3x day * indicates date intervention started. see comments for details of modifications, deletions ADDED 08/20/11 Seated table slides in sitting for scaption and flexion Sitting ER with stick for PROM ADDED 09/01/11-Handout provided Contract relax seated stick ER with sustained stretch SL ER 3x12 Biceps stretch-grab with opposite hand or place hand on table IR behind back to buttock, gentle, no pain 3x30 sec ASSESSMENT: Pt tolerated RX well with decreased guarding and complaints of pain today, tolerates RX in sidelying and sitting better Pt demonstrates moderate stiffness and guarding due to pain with activity; pain well contro lled at rest Pain is improved, should try to wean out of sling again as pain allows, balancing protectio n and pain control Has some symptoms consistent with bicipital tendonitis that is improved with intervention t margarito GOALS, Discussed with patient, due in 12-16 weeks: 1. Increase strength of ROTATOR CUFF/ER to 4/5; periscapular mm to 4+/5 2. Demonstrate understanding and independence HOME EXERCISE PROGRAM 3. Increase shoulder AROM to full and painfree 4. Normalize scapulo-humeral kinematics PLAN: F/U this week as able to address limitation in ROM and pain Progress to A/AAROM as tolerated; sees Katty this week Will wean sling as pain allows Therapeutic exercise, Manual Therapy, Therapeutic Activity, Manual Therapy, Neuromuscular R e-Education, Gait Training, Modalities as needed, Pt. Education, HOME EXERCISE PROGRAM Per protocol. Reinforce precautions. Frequency/Duration: 1x every 2 weeks for 12-16 weeks Treatment began: 1450 Treatment ended: 1530 Reviewed cancel/no show policy with patient. Pt voiced understanding. "At times we understand you must cancel. We request that all cancellations be made at [facility] t 24 hours in advance by calling [phone]. Our office is open 7am-6pm and there is a [employer] line 24 hours a day. Any appointment that is cancelled with less than 24 hours notice will be considered a missed appointment. If two or more appointments are missed, therapy w ill be suspended until you get a new referral from your doctor." This note is to serve as the discharge summary if pt fails to attend further Physical Thera py appointments or contact the therapist regarding any change in their status. LENA RAIN PT [facility] AND HAND THERAPY [address] Mailcode: [address] [facility], [address] [facility] [address] documented in this e ncounter Plan of Treatment + + +--------+ + + | Name | Type | Priori | Associated Diagnoses | Order Schedule | | | | ty | | | + + +--------+ + + | REHABILITATION | Procedures | Routin | Shoulder pain | Ordered: 09/01/2011 | | MEDICARE | | e | | | | CERTIFICATION | | | | | + + +--------+ + + documented as of this encounter Procedures + +--------+ + + + | Procedure Name | Priori | Date/Time | Associated Diagnosis | Comments | | | ty | | | | + +--------+ + + + | SC MANUAL THER | Routin | 09/01/2011 | Shoulder pain | | | TECH,1+GERHARD,EA 15 | e | 4:16 PM | | | | MIN | | PDT | | | + +--------+ + + + | SC THERAPEUTIC | Routin | 09/01/2011 | Shoulder pain | | | EXERCISES | e | 4:16 PM | | | | | | PDT | | | + +--------+ + + + documented in this encounter Visit Diagnoses + + | Diagnosis | + + | Shoulder pain - Primary Pain in joint, shoulder region | + + documented in this encounter
--- OUTSIDE RECORDS SUMMARY | ~2018-07-16 | XMS | Encounter Summary ---
Demographics + + + | Address | [address] | | | [place] [address] | + + + | Home Phone | | + + + | Preferred Language | Unknown | + + + | Marital Status | | + + + | Synagogue Affiliation | NON | + + + | Race | White | + + + | Ethnic Group | Not or | + + + Author + + + | Author | [facility] | + + + | Organization | [facility] | + + + | Address | Unknown | + + + | Phone | Unavailable | + + + Support + + + + + | Name | Relationship | Address | Phone | + + + + + | Elizabeth Welch | ECON | [address] | | | | | [place] | | | | | [address] | | + + + + + Care Team Providers + +------+ + | Care Relations Liaison Name | Role | Phone | + [...] | | | | | Procedures | [facility] | Mailcode: | | | | | PHYSICAL | Rd | [facility] | | | | | THERAPY | [place], [place] | for Health | | | | | REFERRAL | [address] | and Healing, | | | | | | Phone: | 1st floor | | | | | | [phone] | [place], [place] | | | | | | Fax: | [address] | | | | | | [phone] | Phone: | | | | | | | [phone] | | | | | | | Fax: | | | | | | | [phone] | +--------+--------+ + + + + Encounter [...] back pain; Lumbar | | | | [facility][Note 3] | [facility] [address] | radiculopathy; | | | | [address] | [place], [place] | Herniated lumbar | | | | Mailcode: [facility] | [address] | intervertebral disc; | | | | [facility] | | 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 [id number] KEVON WELCH Date of : 1940 Start of care: 10/09/2011 Date of onset: 09/10/11 Referring/Attending Practitioner: Alcira Bocanegra PA . Primary/Referral Diagnosis/ICD-9: 722.10H Herniated lumbar intervertebral disc Insurance: Payor: ODS MEDICARE Plan: ODS MEDICARE Product Type: PPO Service period from: 10/09/2011 to: 11/08/11 Number visits used/authorized: 4/ Neurologist: Dr. Rafal Benites [facility] [address] [place] [address] (Office) [facility] PHYSICAL THERAPY SUBJECTIVE Age: 71 y.o. Sex: [...] month ago. 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 LENA RAIN PT [facility] AND HAND THERAPY [address] Mailcode: [facility], [address] [facility] [address] documented in this e ncounter Plan of Treatment Not on filedocumented as of this encounter Procedures + +--------+ + + + | Procedure Name | Priori | Date/Time | Associated Diagnosis | Comments | | | ty | | | | + +--------+ + + + | AR THERAPEUTIC | Routin | 10/24/2011 | Shoulder [...]
--- OUTSIDE RECORDS SUMMARY | ~2018-07-16 | XMS | Encounter Summary ---
Demographics + + + | Address | [address] | | | [place] [address] | + + + | Home Phone | | + + + | Preferred Language | Unknown | + + + | Marital Status | | + + + | Pentecostal Affiliation | NON | + + + | Race | White | + + + | Ethnic Group | Not or | + + + Author + + + | Author | [facility] | + + + | Organization | [facility] | + + + | Address | Unknown | + + + | Phone | Unavailable | + + + Support + + + + + | Name | Relationship | Address | Phone | + + + + + | Elizabeth Welch | ECON | [address] | | | | | [place] | | | | | [address] | | + + + + + Care Team Providers + +------+ + | Care Coke Production Heater Name | Role | Phone | + +------+ + | Doyle Johnson MD | PCP | | + +------+ + Reason for Visit + + + | Reason | Comments | + + + | Shoulder pain | | + + + Physical Therapy (Routine) +--------+--------+ + + + + | Status | Reason | Specialty | Diagnoses / | Referred By | Referred To | | | | | Procedures | Contact | Contact | +--------+--------+ + + + + | Closed | | Physical | Diagnoses | Aisha, | [facility] | | | | Therapy | Shoulder | MD Gordy | [address] | | | | | pain | [address] | [address] | | | | | Procedures | [facility] | Mailcode: | | | | | PHYSICAL | Rd | [facility] | | | | | THERAPY | [place], [place] | for Health | | | | | REFERRAL | [address] | and Healing, | | | | | | | 1st floor | | | | | | | [place], [place] | | | | | | | [address] | | | | | | | Phone: | | | | | | | [phone] | | | | | | | Fax: | | | | | | | [phone] | +--------+--------+ + + + + Encounter Details +--------+---------+ + + + | Date | Type | Department | Care Team | Description | +--------+---------+ + + + | 11/16/ | Office | [place] [facility] | Rupesh, | Shoulder pain, right | | 2013 | Visit | Therapy Services at | Alise, PT [address] | (Primary Dx) | | | | [facility] | [address] | | | | | [address] | [place], [place] | | | | | Mailcode: [facility] | [address] | | | | | [facility] | | | | | | and Healing, 1st | | | | | | floor [place], [place] | | | | | | [address] | | | | | | [phone] | | | +--------+---------+ + + + [...] encounter Progress Notes Alise Washington, PT - 11/16/2013 11:25 AM PDT [id number] KEVON WELCH Date of : 1940 Start of care: 05/19/2013 Date of onset: 03/21/2013 Referring/Attending Practitioner: Misael Myers Primary/Referral Diagnosis/ICD-9: Shoulder pain, right (primary encounter diagnosis) Insurance: Payor: [employer] MEDICARE Plan: [employer]IC[employer] Product Type: P PO Service period from: 05/19/2013 to 01/18/2014 Number visits used/authorized: 10/21 [facility] PHYSICAL THERAPY TREATMENT - ORTHO SUBJECTIVE: Current: Behind the back is still limited. Unable to reach arm as far cross body. All oth er motions are nearly normal. History of Presenting Problem: Kevon Welch is [...] Right Left Right 07/20/2013 Right 08/11/2013 Right 09/22 Right/Left 10/18/2013 Flexion 141 155 [id number]* [id number] Pre 125* Post 140 145 145/150 Abduction 146 150 [id number]* [id number] Pre 95* Post 132 144 140/145 ER at 90 deg abd 90 (60 at neutral) 90 79 no change Pre 48* no change 70 82/84 IR at 90 deg abd 24 75 L5/T7 *indicates pain with movement Palpation: Tenderness with palpation of infraspinatus insertion, supraspinatus muscle belly and insert ion Manual therapy, 30 minutes: Posterior GH mobilization, grade III in neutral and 90 deg abduction CFM long head of biceps tendon STM upper trap, infraspinatus, Contract relax for shoulder IR Therapeutic exercise, 15 minutes: Cross body pec stretch with IR, 3 x 30 sec Isometric subscap and infraspinatus behind back with red band, 10 x 5 sec hold Eccentric biceps with 4#, 3 x 10 Education on theracane for self trigger point release Home exercise program as of 08/11/2013 Sidelying [...] Isometric subscap behind back with red band Eccentric biceps with 5# ASSESSMENT: Kevon is a 72 year old male who presents with right shoulder pain for 4 months duration fol lowing carrying chair up flight of stairs. Pt with continued anterior shoulder pain due to d ecreased posterior capsule length causing anterior translation of humeral head. Significant tenderness of biceps tendon this date. Good compliance with home exercise program and may benefit from 1 additional PT visit to re-assess. Kevon requires services that can be safely and effectively performed only by a qualified therapist to address the following problems a nd achieve the following goals: DISCHARGE FUNCTIONAL GOALS, discussed with emmy Lund in 6 weeks: Pt will demonstrate 160 deg shoulder flexion in order to reach high shelf Pt will report washing back with 0/10 pain Pt will be independent with home exercise program 5/7 days PLAN OF CARE: Focus on home exercise program as pt lives in [place], [place] for posterior do minant shoulder strength Frequency/Duration: Follow up prn due to pt living in [facility], [place] Treatment began: 1125 am Treatment ended: 1210 pm This note is to serve as the discharge summary if Kevon fails to attend further Physical Th erapy appointments or contact the therapist regarding any change in their status. Alise Washington, PT [facility] [address] Mailcode: [place] [address] documented in this encounter Plan of Treatment Not on filedocumented as of this encounter Procedures + +--------+ + + + | Procedure Name | Priori | Date/Time | Associated Diagnosis | Comments | | | ty | | | | + +--------+ + + + | [place] MANUAL THER | Routin | 11/16/2013 | Shoulder pain, | | | TECH,1+REGIONS,EA 15 | e | 12:50 PM | right | | | MIN | | PDT | | | + +--------+ + + + | [place] THERAPEUTIC | Routin | 11/16/2013 | Shoulder pain, | | | EXERCISES | e | 12:50 PM | right | | | | | PDT | | | + +--------+ + + + documented in this encounter Visit Diagnoses + + | Diagnosis | + + | Shoulder pain, right - Primary Pain in joint, shoulder region | + + documented in this encounter
--- OUTSIDE RECORDS SUMMARY | ~2018-07-16 | XMS | Encounter Summary ---
Demographics + + + | Address | [address] | | | [place] [address] | + + + | Home Phone | | + + + | Preferred Language | Unknown | + + + | Marital Status | | + + + | Confucianism Affiliation | NON | + + + | Race | White | + + + | Ethnic Group | Not or | + + + Author + + + | Author | [facility] | + + + | Organization | [facility] | + + + | Address | Unknown | + + + | Phone | Unavailable | + + + Support + + + + + | Name | Relationship | Address | Phone | + + + + + | Elizabeth Welch | ECON | [address] | | | | | [place] | | | | | [address] | | + + + + + Care Team Providers + +------+ + | Care Wringer Machine Operator Name | Role | Phone | + +------+ + | Doyle Johnson MD | PCP | Unavailable | + +------+ + Reason for Visit +---------+ + | Reason | Comments | +---------+ + | Post Op | | +---------+ + PROC - Outpatient Surgery (Routine) +--------+--------+ + + + + | Status | Reason | Specialty | Diagnoses / | Referred By | Referred To | | | | | Procedures | Contact | Contact | +--------+--------+ + + + + | Closed | | Orthopedics | Diagnoses | No | Louis, | | | | | Rotator | Referring | MD Misael | | | | | cuff | Provider Per | [address] | | | | | (capsule) | Patient NO | [address] | | | | | sprain | REFERRING | [address] [place], | | | | | Osteoarthros | PROVIDER PER | [place] | | | | | is, | PT | [address] | | | | | unspecified | | Phone: | | | | | whether | | [phone] | | | | | generalized | | Fax: | | | | | or | | [phone] | | | | | localized, | | | | | | | shoulder | | | | | | | region | | | | | | | Bicipital | | | | | | | tenosynoviti | | | | | | | s | | | | | | | Procedures | | | | | | | REQUEST TO | | | | | | | SURGERY | | | | | | | SOCIAL STUDIES TEACHER | | | | | | | DE SHLDR | | | | | | | ARTHROSCOP,P | | | | | | | ART | | | | | | | ACROMIOPLAS | | | | | | | W/CORACOACRO | | | | | | | M DE SHLDR | | | | | | | ARTHROSCOP,S | | | | | | | URG,DIS | | | | | | | CLAVICULECTO | | | | | | | MY DE | | | | | | | ARTHROSCOPY | | | | | | | BICEPS | | | +--------+--------+ + + + + Encounter Details +--------+---------+ + + + | Date | Type | Department | Care Team | Description | +--------+---------+ + + + | 09/03/ | Office | Orthopaedics at | Katty Chairez PA | Shoulder pain | | 2011 | Visit | H [address] | [address] | (Primary Dx) | | | | Ave Mailcode: CH12A | [place], [place] | | | | | [facility] | [address] | | | | | and [facility] | [phone] | | | | | Floor [place], [place] | | | | | | [address] | | | | | | [phone] | | | +--------+---------+ + + + [...] + + documented as of this encounter Last Filed Vital Signs + + + + + | Vital Sign | Reading | Time Taken | Comments | + + + + + | Blood Pressure | - | - | | + + + + + | Pulse | - | - | | + + + + + | Temperature | - | - | | + + + + + | Respiratory Rate | - | - | | + + + + + | Oxygen Saturation | - | - | | + + + + + | Inhaled Oxygen | - | - | | | Concentration | | | | + + + + + | Weight | 72.6 kg (160 lb) | 09/04/2011 9:11 AM | | | | | PDT | | + + + + + | Height | 172.7 cm (5' 8") | 09/04/2011 9:11 AM | | | | | PDT | | + + + + + | Body Mass Index | 24.33 | 09/04/2011 9:11 AM | | | | | PDT | | + + + + + documented in this encounter Progress Notes Katty Chairez PA - 09/04/2011 9:13 AM Candice Wlech is a 70 y.o. male Status post the following on 07/11/11: 1. left arthroscopic subacromial decompression. 2. left arthroscopic distal clavicle resection. 3. left arthroscopic shoulder limited synovectomy and labral debridement Doing well, denies fevers or chills Sensation remains intact, full use of fingers and wrist Shoulder passive motion is good today in forward flexion and abduction He will continue to work on motion, d/c sling and progress with activities as tolerated Asked to return to clinic in six weeks for clinical check or call sooner with questions iss ues or concerns documented in this encounter Plan of Treatment Not on filedocumented as of this encounter Visit Diagnoses + + | Diagnosis | + + | Shoulder pain - Primary Pain in joint, shoulder region | + + documented in this encounter
--- OUTSIDE RECORDS SUMMARY | ~2018-07-16 | XMS | Encounter Summary ---
Demographics + + + | Address | [address] | | | [place] [address] | + + + | Home Phone | | + + + | Preferred Language | Unknown | + + + | Marital Status | | + + + | Oriental Orthodox Affiliation | NON | + + [...] [place] | | | | | [address] | | + + + + + Care Team Providers + +------+ + | Care Credit Office Manager Name | Role | Phone | [...] Closed | | Physical | Diagnoses | Berent, | [facility] | | | | Therapy | Shoulder | VIANEY Eli | [address] | | | | | pain | [address] | [address] | | | | | Procedures | [address] | Mailcode: | | | | | PHYSICAL | Rd | [facility] | | | | | THERAPY | [facility] [place] | for Health | | | | | REFERRAL | [address] | and Healing, | | | | | | Phone: | 1st floor | | | | | | [phone] | [facility] [place] | | | | | | Fax: | [address] | | | | | | [phone] | Phone: | | | | | | | [phone] | | | | | | | Fax: | | | | | | | [phone] | +--------+--------+ + + + + Encounter Details +--------+---------+ + + + | Date | Type | Department | Care Team | Description | +--------+---------+ + + + | 10/22/ | Office | [facility] Physical | Lena Rain, | Herniated lumbar | | 2011 | Visit | Therapy Services at | PT [address] | intervertebral disc; | | | | [facility] | [address] | Degeneration of | | | | [address] | [place], [place] | lumbar | | | | Mailcode: [facility] | [address] | intervertebral disc; | | | | [facility] | | Low back pain; | | | | and Healing, 1st | | Lumbar radiculopathy | | | | floor [place], [place] | | | | | | [address] | | | | | | [phone] | | | +--------+---------+ + + + [...] encounter Progress Notes Lena Rain, PT - 10/23/2011 10:46 AM PDTFormatting of this note might be different fr om the original. [id number] KEVON WELCH Date of : 1940 Start of care: 10/09/2011 Date of onset: 09/10/11 Referring/Attending Practitioner: Alcira Bocanegra PA . Primary/Referral Diagnosis/ICD-9: 722.10H Herniated lumbar intervertebral disc Insurance: Payor: [employer] MED[employer]ARE Plan: [employer] Product Type: PPO Service period from: 10/09/2011 to: 11/08/11 Number visits used/authorized: 5/ Neurologist: [facility]. [facility] [address] [place] [address] (Office) [facility] PHYSICAL THERAPY SUBJECTIVE Age: 71 y.o. Sex: male Chief complaint: Today's report: 0/10 pain today Less concentration needed for walking Able to do 20 sidelying hip abduction ex, easier on R LE Toes still not lifting any higher with standing DF (up to about 1 inch with shoes on) Able to achieve increased seated knee extension angle Driving more History of Presenting Problems: Kevon Welch is a 71 y.o. male with c/o LBP that began about a month ago. He was bending over to nut picker a garden hose and felt increased R [...] arthroscopic shoulder limited synovectomy and labral debridement Social History: lives with Recreational Activities/Hobbies: plays Pinocular; reading; does a lot of computer/keyboarding Functional limitations:Walking more than 2 blocks he starts to feel fatigue in anterior tib ialis Patients goals: resume prior level of function, decrease pain OBJECTIVE: SL stance 18 sec w occ LOB L +30 sec, no LOB; eyes closed: 20 sec R 30 sec L [place] Neuro Screen Updated 10/16/11 Segmental Strength Test Right Left Impact Test L1-3 hip flexion na na L3 knee Extension 5 5 L4-5 hip abduction 4 5 L4 Ankle DF 4- 5 S1 Calf Raises 5 5 S1 Hamstrings 5 5 Toe extension 4+ 10/23/11 THERAPEUTIC EXERCISE x45 min REviewed ex and added new ex as noted Performed PROM calf stretch and supine nerve flossing with PKET with gentle DF Reviewed concepts of neutral spine and to avoid excess flexion; allow gentle spine rotation when walking and maneuvering within painfree limits Home exercise program: Intervention Date* Comments Compliance 10/10/2011 Predicted: good Seated Sciatic nerve glides: Seated ankle DF/PF:10x Seated HS glides:10x Seated Chin tucks/Head nods:10x 10/10/2011 Cat and camel 10/10/2011 sidelying hip abduction 10/10/2011 Supine figure 4 and piriformis stretch 10/10/2011 Supine hooklying Transverse abdominus activation 10/20/11 Sitting, supine, standing Supine hooklying Transverse abdominus activation with Bent knee fall out 10/20/11 Ankle DF with yellow Tband 10/23/11 2x15, control great toe ext compensation Calf stretch- long sitting 10/20/11 3x60 sec Standing tandem stance 10/23/11 Eyes open eyes closed, UE for support prn; do 30 sec as saba, 2 each 1x day Single leg stance 10/23/11 Eyes open eyes closed, UE for support prn; do 30 sec as saba, 2 e ach 1x day Standing march in place 10/23/11 maintain neutral spine 20 x ea side * indicates date intervention started. see comments for details of compliance, modification s, deletions ASSESSMENT: Pt tolerated RX well today Symptoms slowly resolving, continues to improve with pain report Symptoms with sciatic nerve stretch are less irritable able to tolerate further knee extens ion in sitting DF strength and balance limited, though balance is improved since initial eval Pt presents with signs and symptoms consistent [...] lton Duration in months: 1-2months Treatment began: 1045 Treatment ended: 1130 This note is to serve as the discharge summary if Kevon fails to attend further Physical Th erapy appointments or contact the therapist regarding any change in their status. LENA RAIN PT [facility] [address] Mailcode: [facility], [address] [place] [address] documented in this e ncounter Plan of Treatment Not on filedocumented as of this encounter Procedures + +--------+ + + + | Procedure Name | Priori | Date/Time | Associated Diagnosis | Comments | | | ty | | | | + +--------+ + + + | [place] THERAPEUTIC | Routin | 10/23/2011 | Herniated lumbar | | | EXERCISES | e | 12:16 PM | intervertebral disc | | | | | PDT | Degeneration of | | | | | | lumbar | | | | | | intervertebral disc | | | | | | Low back pain | | | | | | Lumbar radiculopathy | | + +--------+ + + + documented in this encounter Visit Diagnoses + + | Diagnosis | + + | Herniated lumbar intervertebral disc Displacement of lumbar intervertebral disc | | without myelopathy | + + | Degeneration of lumbar intervertebral disc Degeneration of lumbar or lumbosacral | | intervertebral disc | + + | Low back pain Lumbago | + + | Lumbar radiculopathy Thoracic or lumbosacral neuritis or radiculitis, unspecified | + + documented in this encounter
--- OUTSIDE RECORDS SUMMARY | ~2018-07-16 | XMS | Encounter Summary ---
Demographics + + + | Address | [address] | | | [place] [address] | + + + | Home Phone | | + + + | Preferred Language | Unknown | + + + | Marital Status | | + + + | Buddhism Affiliation | NON | + + + | Race | White | + + + | Ethnic Group | Not or | + + + Author + + + | Author | [facility] | + + + | Organization | [facility] | + + + | Address | Unknown | + + + | Phone | Unavailable | + + + Support + + + + + | Name | Relationship | Address | Phone | + + + + + | Elizabeth Welch | ECON | [address] | | | | | [place] | | | | | [address] | | + + + + + Care Team Providers + +------+ + | Care Regional Dedicated Truck Driver Name | Role | Phone | + +------+ + | Doyle Johnson MD | PCP | Unavailable | + +------+ + Reason for Visit + + + | Reason | Comments | + + + | Return Patient | L shoulder. | + + + Office Visit - E/M Services (Routine) +--------+--------+ + + + + | Status | Reason | Specialty | Diagnoses / | Referred By | Referred To | | | | | Procedures | Contact | Contact | +--------+--------+ + + + + | Closed | | Orthopedics | Diagnoses | No | Louis, | | | | | Left | Referring | MD Misael | | | | | shoulder | Provider Per | [address] | | | | | pain | Patient NO | [address] | | | | | | REFERRING | [address] [place], | | | | | | PROVIDER PER | [place] | | | | | | PT | [address] | | | | | | | Phone: | | | | | | | [phone] | | | | | | | Fax: | | | | | | | [phone] | +--------+--------+ + + + + Encounter Details +--------+---------+ + + + | Date | Type | Department | Care Team | Description | +--------+---------+ + + + | 03/27/ | Office | Orthopaedics at | Misael Myers MD | Rotator cuff | | 2011 | Visit | [facility] [address] | [address] | tendinitis (Primary | | | | Ave Mailcode: CH12A | [address] | Dx) | | | | [place] for [facility] | [place], [place] | | | | | and [facility], | [address] | | | | | Floor [place], [place] | [phone] | | | | | [address] | | | | | | [phone] | | | +--------+---------+ + + + [...] Comments | + + +---------+ + | No | | | 1 glass of wine a | [...] Weight | 72.6 kg (160 lb) | 03/27/2011 9:01 AM | | | | | PST | | + + + + + | Height | 172.7 cm (5' 8") | 03/27/2011 9:01 AM | | | | | PST | | + + + + + | Body Mass Index | 24.33 | 03/27/2011 9:01 AM | | | | | PST | | + + + + + documented in this encounter Progress Notes Misael Myers MD - 04/28/2011 8:36 AM PDTJocelyn is a 70 y.o. right-handed male who present ed for follow up of rotator cuff tendinitis and impingement with a partial thickness tear. H is pain is substantially improved with physical therapy and a home exercise program. Telles ' impingement sign is mildly positive, Neer's sign is negative and Speed's test is negative. PLAN: Continued physical therapy recommended. The patient was asked to return to clinic for re-assessment in 6 weeks time if symptoms fail to improve. documented in this encounter Plan of Treatment Not on filedocumented as of this encounter Visit Diagnoses + + | Diagnosis | + + | Rotator cuff tendinitis - Primary Disorders of bursae and tendons in shoulder region, | | unspecified | + + documented in this encounter
--- OUTSIDE RECORDS SUMMARY | ~2018-07-16 | XMS | Encounter Summary ---
Demographics + + + | Address | [address] | | | [place] [address] | + + + | Home Phone | | + + + | Preferred Language | Unknown | + + + | Marital Status | | + + + | Congregation Affiliation | NON | + + + | Race | White | + + + | Ethnic Group | Not or | + + + Author + + + | Author | [facility] | + + + | Organization | [facility] | + + + | Address | Unknown | + + + | Phone | Unavailable | + + + Support + + + + + | Name | Relationship | Address | Phone | + + + + + | Elizabeth Welch | ECON | [address] | | | | | [place] | | | | | [address] | | + + + + + Care Team Providers + +------+ + | Care Radiographer Cardiac Catheterization Name | Role | Phone | + [...] | | | | | Procedures | [facility] | Mailcode: | | | | | PHYSICAL | Rd | [facility] | | | | | THERAPY | [place], [place] | for Health | | | | | REFERRAL | [address] | and Healing, | | | | | | | 1st floor | | | | | | | [place], [place] | | | | | | | [address] | | | | | | | Phone: | | | | | | | [phone] | | | | | | | Fax: | | | | | | | [phone] | +--------+--------+ + + + + Encounter Details +--------+---------+ + + + | Date | Type | Department | Care Team | Description | +--------+---------+ + + + | 11/16/ | Office | [facility] | Rupesh, | Shoulder pain, right | | 2013 | Visit | Therapy Services at | Alise, PT [address] | (Primary Dx) | | | | [facility] | [address] | | | | | [address] | [place], [place] | | | | | Mailcode: [facility] | [address] | | | | | [facility] | | | | | | and Healing, 1st | | | | | | floor [place], [place] | | | | | | [address] | | | | | | [phone] | | | +--------+---------+ + + + [...] Washington, PT - 11/16/2013 11:25 AM PDT [id number] KEVON WELCH Date of : 1940 Start of care: 05/19/2013 Date of onset: 03/21/2013 Referring/Attending Practitioner: Misael Myers Primary/Referral Diagnosis/ICD-9: Shoulder pain, right (primary encounter diagnosis) Insurance: Payor: [employer] MEDICARE Plan: [employer] MED[employer] Product Type: P PO Service period from: 05/19/2013 to 01/18/2014 Number visits used/authorized: 10/21 [facility] PH[facility]ICAL [facility] TREATMENT - ORTHO SUBJECTIVE: Current: [...] Right 09/22 Right/Left 10/18/2013 Flexion 141 155 [id number]* [id number] Pre 125* Post 140 145 145/150 Abduction 146 150 [id number]* [id number] Pre 95* Post 132 144 140/145 ER [...] home exercise program as pt lives in [place], [place] for posterior do minant shoulder strength Frequency/Duration: Follow up prn due to pt living in [facility], [place] Treatment began: 1125 am Treatment ended: 1210 pm This note is to serve as the discharge summary if Kevon fails to attend further Physical Th erapy appointments or contact the therapist regarding any change in their status. Alise Washington, PT [facility] [address] Mailcode: [place] [address] documented in this encounter Plan of Treatment Not on filedocumented as of this encounter Procedures + +--------+ + + + | Procedure Name | Priori | Date/Time | Associated Diagnosis | Comments | | | ty | | | | + +--------+ + + + | [place] MANUAL THER | Routin | 11/16/2013 | Shoulder pain, | | | TECH,1+REGIONS,EA 15 | e | 12:50 PM | right | | | MIN | | PDT | | | + +--------+ + + + | [place] THERAPEUTIC | Routin | 11/16/2013 | Shoulder [...]
--- OUTSIDE RECORDS SUMMARY | ~2018-07-16 | XMS | Encounter Summary ---
Demographics + + + | Address | [address] | | | [place] [address] | + + + | Home Phone | | + + + | Preferred Language | Unknown | + + + | Marital Status | | + + + | Bahai Affiliation | NON | + + + | Race | White | + + + | Ethnic Group | Not or | + + + Author + + + | Author | [facility] | + + + | Organization | [facility] | + + + | Address | Unknown | + + + | Phone | Unavailable | + + + Support + + + + + | Name | Relationship | Address | Phone | + + + + + | Elizabeth Welch | ECON | [address] | | | | | [place] | | | | | [address] | | + + + + + Care Team Providers + +------+ + | Care Call Person Name | Role | Phone | + +------+ + | Doyle Johnson MD | PCP | | + +------+ + Reason for Referral Physical Therapy (Routine) +--------+--------+ + + + + | Status | Reason | Specialty | Diagnoses / | Referred By | Referred To | | | | | Procedures | Contact | Contact | +--------+--------+ + + + + | Closed | | Physical | Diagnoses | [facility] | [facility] | | | | Therapy | Shoulder | MD Gordy | [address] | | | | | pain | [address] | Zhen Baum | | | | | Procedures | [address] | Mailcode: | | | | | PHYSICAL | Rd | [facility] | | | | | THERAPY | [place], [place] | for Health | | | | | REFERRAL | [address] | and Healing, | | | | | | | 1st floor | | | | | | | [place], [place] | | | | | | | [address] | | | | | | | Phone: | | | | | | | [phone] | | | | | | | Fax: | | | | | | | [phone] | +--------+--------+ + + + + Reason for Visit + + + | Reason | Comments | + + + | Shoulder pain | New Patient | + + + Consultation (Routine) +--------+--------+ + + + + | Status | Reason | Specialty | Diagnoses / | Referred By | Referred To | | | | | Procedures | Contact | Contact | +--------+--------+ + + + + | Closed | | Orthopedics | Diagnoses | [facility] | [place], | | | | | possible | Epic Dept | MD Misael | | | | | injury of R | | [address] | | | | | rotator cuff | | [address] | | | | | | | [place], | | | | | | | [place] | | | | | | | [address] | | | | | | | Phone: | | | | | | | [phone] | | | | | | | Fax: | | | | | | | [phone] | +--------+--------+ + + + + Encounter Details +--------+---------+ + + + | Date | Type | Department | Care Team | Description | +--------+---------+ + + + | 05/19/ | Office | Orthopaedics at | Misael Myers MD | Shoulder pain | | 2013 | Visit | [facility] [address] | [address] | (Primary Dx) | | | | Ave Mailcode: CH12A | [address] | | | | | [place] [facility] | [place], [place] | | | | | and | [address] | | | | | Floor [place], [place] | [phone] | | | | | [address] | | | | | | [phone] | | | +--------+---------+ + + + [...] this encounter Last Filed Vital Signs + +---------+ + + | Vital Sign | Reading | Time Taken | Comments | + +---------+ + + | Blood Pressure | 116/65 | 05/19/2013 10:25 AM | | | | | PDT | | + +---------+ + + | Pulse | 49 | 05/19/2013 10:25 AM | | | | | PDT | | + +---------+ + + | Temperature | - | - | | + +---------+ + + | Respiratory Rate | 12 | 05/19/2013 10:25 AM | | | | | PDT | | + +---------+ + + | Oxygen Saturation | - | - | | + +---------+ + + | Inhaled Oxygen | - | - | | | Concentration | | | | + +---------+ + + | Weight | - | - | | + +---------+ + + | Height | - | - | | + +---------+ + + | Body Mass Index | - | - | | + +---------+ + + documented in this encounter Progress Notes Gordy Leonard MD - 05/19/2013 11:17 AM PDTFormatting of this note might be different fr om the original. This is a 72 y.o. right-handed male who presented for consultation with regards to a compla int of right shoulder pain of 2 month duration. The pain began suddenly and has gradually i ncreased. History of a precipitating event was positive by way of lifting a chair. Pain is present across the posterior shoulder. The patient experiences pain confined to the shoulder region. The pain is of aching quality. The patient has aggravation of the pain w ith overhead activity. The pain is improved with rest , heat and pain medication. The jennie ent has not previously undergone treatment. Of note patient has left shoulder subacromial decompression and distal clavicle resection b y Dr. Myers 07/22/2011 which is doing well now Filed Vitals: 05/19/2013 10:25 AM BP: 116/65 Pulse: 49 Resp: 12 PainLoc: Shoulder (Right) Past Medical History Diagnosis Date NELY (obstructive sleep apnea) Past Surgical History Procedure Laterality Date Lipoma exicison 2002 Uppp 2006 Knee procedure 1958 Colonoscopy-last 2009 No current outpatient prescriptions on file prior to visit. No current facility-administered medications on file prior to visit. Allergies Allergen Reactions Naproxen Rash Ibuprofen Palpitations Only with Large dose amount reactions were irregular heart beat Moban (Molindone Hcl) Palpitations irregular heart beat Fam: Non-contributory History Social History Marital Status: Spouse Name: N/A Number of Children: N/A Years of Education: N/A Occupational History Not on file. Social History Main Topics Smoking status: Never Smoker Smokeless tobacco: Never Used Alcohol Use: 3.5 oz/week 7 Glasses of wine per week Comment: 1 glass of wine a day Drug Use: No Sexually Active: Not on file Other Topics Concern Not on file Social History Narrative No narrative on file The review of systems is included on the patient intake form. This was reviewed and no new pertinent positives were present. The patient appeared awake, alert and oriented. The patient appeared consistent with the s tated age, in good general health and in no apparent distress. Vitals were There were no vi tals taken for this visit.. The patient had normal contour and symmetry of the upper extrem ities with no ecchymosis, swelling or muscular atrophy. The patient has normal contour and symmetry of the upper extremities with no ecchymosis, sw elling, lymphedema, or muscular atrophy. There are no surgical scars or other skin abnormal ities. The patient has normal cervical range of motion in flexion, extension, lateral bending and rotation. There is no spinal or paraspinal pain or tenderness to palpation. Spurling's sig n is negative. The patient has normal spinal alignment in the cervical and thoracic regions with equal claude ulder heights and normal and symmetric scapulothoracic motion seen during active elevation a nd lowering of the arms. Right shoulder range of motion measures 140 degrees of active elevation, 170 degrees of pas sive elevation, 30 degrees external rotation and internal rotation to L3. Palpation of the right shoulder produced no tenderness. Strength testing of the right shoulder demonstrated supraspinatus 5/5, infraspinatus 5/5, s ubscapularis 5/5, anterior deltoid 5/5 and middle deltoid 5/5. Special testing of the right shoulder was performed. Telles' test was positive. The patient had normal light touch sensation across the upper extremity, including lateral and medial aspects of the arm and forearm and the palmar and dorsal aspect of the hand and f ingers. Radial and ulnar pulses were normal. 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 The relative risk and benefits of conse rvative and operative treatment options were reviewed in detail and the patient's questions were answered. At this time, I recommended that the patient pursue conservative treatment PLAN: Physical therapy recommended and Education and encouragement provided documented in this encounter Plan of Treatment Not on filedocumented as of this encounter Results X-RAY SHOULDER 3+ VIEWS RIGHT (05/19/2013 9:41 AM PDT) + + + + + + | Component | Value | Ref Range | Performed | Pathologist | | | | | At | Signature | + + + + + + | SHOULDER 3+ | STUDY: SHOULDER 3 VIEWS | | | | | VIEWS | RIGHT 05/19/13 09:41:00 | | | | | RIGHT | HISTORY: Pain. | | | | | | COMPARISON: None. | | | | | | FINDINGS: The bones are | | | | | | intact without fracture | | | | | | or focal destruction. | | | | | | There is | | | | | | mildglenohumeral joint | | | | | | space narrowing and | | | | | | spurring. Mild | | | | | | acromioclavicularspurrin | | | | | | g is observed. No | | | | | | malalignment is | | | | | | identified. There is no | | | | | | focal softtissue | | | | | | abnormality. IMPRESSION: | | | | | | Mild right glenohumeral | | | | | | and acromioclavicular | | | | | | degenerative joint | | | | | | disease. Attending | | | | | | Radiologists: YANCY | | | | | | AMBER DUKESuthor: | | | | | | YANCY DUKES MD I | | | | | | have personally viewed | | | | | | this procedure/exam, | | | | | | reviewed this report, | | | | | | and madechanges to it | | | | | | where appropriate. | | | | | | Final/Electronically | | | | | | signed / YANCY | | | | | | ROSELINE 05/19/2013 9:53 | | | | | | AM | | | | + + + + + + + + | Specimen | + + | | + + + +---------+ + + | Performing | Address | City/State/Zipcode | Phone Number | | Organization | | | | + +---------+ + + | [facility] | | | | | [facility] | | | | + +---------+ + + documented in this encounter Visit Diagnoses + + | Diagnosis | + + | Shoulder pain - Primary Pain in joint, shoulder region | + + documented in this encounter"
--- OUTSIDE RECORDS SUMMARY | ~2018-07-16 | XMS | Encounter Summary ---
Demographics + + + | Address | [address] | | | [place] [address] | + + + | Home Phone | | + + + | Preferred Language | Unknown | + + + | Marital Status | | + + + | Orthodox Affiliation | NON | + + + | Race | White | + + + | Ethnic Group | Not or | + + + Author + + + | Author | [facility] | + + + | Organization | [facility] | + + + | Address | Unknown | + + + | Phone | Unavailable | + + + Support + + + + + | Name | Relationship | Address | Phone | + + + + + | Elizabeth Welch | ECON | [address] | | | | | [place] | | | | | [address] | | + + + + + Care Team Providers + +------+ + | Care Business Proposal Rep Name | Role | Phone | + +------+ + | Doyle Johnson MD | PCP | Unavailable | + +------+ + Reason for Visit Office Visit - E/M Services (Routine) +--------+--------+ [...] | | shoulder | Provider Per | [address] | | | | | pain | Patient NO | [facility] | | | | | | REFERRING | [place] | | | | | | PROVIDER PER | [place] | | | | | | [place] | [address] | | | | | | | Phone: | | | | | | | [phone] | | | | | | | Fax: | | | | | | | [phone] | +--------+--------+ + + + + Encounter Details +--------+---------+ + + + | Date | Type | Department | Care Team | Description | +--------+---------+ + + + | 02/13/ | Office | Orthopaedics at | Misael Myers MD | Shoulder pain; | | 2011 | Visit | [facility] [address] | [address] | Rotator cuff | | | | [place] Mailcode: CH12A | [address] | tendinitis; | | | | Center for [facility] | [facility] [place] | Disorders of bursae | | | | and Healing, | [address] | and tendons in | | | | Floor [facility] [place] | [phone] | shoulder region, | | | | [address] | | unspecified | | | | [phone] | | | +--------+---------+ + + + [...] Weight | 72.6 kg (160 lb) | 02/13/2011 9:35 AM | | | | | PST | | + + + + + | Height | 172.7 cm (5' 8") | 02/13/2011 9:35 AM | | | | | PST | | + + + + + | Body Mass Index | 24.33 | 02/13/2011 9:35 AM | | | | | PST | | + + + + + documented in this encounter Progress Notes Misael Myers MD - 03/17/2011 12:16 AM PST This is a 70 y.o. right-handed male who presented for consultation with regards to a compla int of left shoulder pain of 2 months duration. The pain began suddenly and has gradually i ncreased. History of a precipitating event was positive by way of washing his back. Pain is present across the anterior and posterior shoulder. The patient has an average rupa n level of 3 out of 10, characterized as varying with activity. The patient experiences rupa n confined to the shoulder region. The pain is of aching and sharp quality. The patient brown s aggravation of the pain with overhead activity. The pain is improved with rest . The pat iejules has not previously undergone treatment. No pain at night. No pain while driving. Patient has a history of a right RCT that was treated non-operatively. Filed Vitals: 02/13/2011 9:35 AM Height: 1.727 m (5' 8") Weight: 72.576 kg (160 lb) PainSc: 0 - Zero PainLoc: Shoulder (Left) BMI: 24.33 kg/(m^2) No past medical history on file. No past surgical history on file. No current outpatient prescriptions on file prior to visit. Not on File Fam: Non-contributory History Social History Marital Status: Spouse Name: N/A Number of Children: N/A Years of Education: N/A Occupational History Not on file. Social History Main Topics Smoking status: Never Smoker Smokeless tobacco: Never Used Alcohol Use: No 1 glass of wine a day Drug [...] and in no apparent distress. Vitals were Ht 172.7 cm (5' 8") | Wt 72.576 kg (160 lb) | BMI 24.33 kg/(m^2). The patient had normal contour and symmet ry of the upper extremities with no ecchymosis, swelling or muscular atrophy. [...] motion measures 140 degrees of active elevation, 120 degrees of pas sive elevation, 45 degrees external rotation and internal rotation to L3. Left shoulder range of motion measures 120 degrees of active elevation, 120 degrees of pass mariah elevation, 45 degrees external rotation and internal rotation to L3. Palpation of the left shoulder produced no tenderness. Strength testing of the left shoulder demonstrated supraspinatus 5/5, infraspinatus 5/5, perez bscapularis 5/5, anterior deltoid 5/5 and middle deltoid 5/5. Special testing of the left shoulder was performed. Telles' test was positive., Neer test was positive., The cross-arm AC compression test was negative. , Speed's biceps test was ne gative. and Belmont's test was positive. The patient had normal light touch sensation across the upper extremity, including lateral and medial aspects of the arm and forearm and the palmar and dorsal aspect of the hand and f ingers. Radial and ulnar pulses were normal. MRI performed at [facility] shows mild/moderate amount of degeneration of the ac joint, with some intrasubstance signal of the RC. No full thickness defect seen. ASSESSMENT: RC Tendinitis [726.10] and impingement with a partial thickness tear PLAN: Physical therapy recommended, Education and encouragement provided and Home exercise program recommended. Had him see the physical therapist in the office today. We would also like the patient to use heat on the shoulder and anti-inflammatory medication as well. The patient was asked to return to clinic for re-assessment in 6 weeks time if symptoms fail to improve. documented in t his encounter Plan of Treatment Not on filedocumented as of this encounter Visit Diagnoses + + | Diagnosis | + + | Shoulder pain Pain in joint, shoulder region | + + | Rotator cuff tendinitis Disorders of bursae and tendons in shoulder region, | | unspecified | + + | Disorders of bursae and tendons in shoulder region, unspecified | + + documented in this encounter
--- OUTSIDE RECORDS SUMMARY | ~2018-07-16 | XMS | Encounter Summary ---
Demographics + + + | Address | [address] | | | [place] [address] | + + + | Home Phone | | + + + | Preferred Language | Unknown | + + + | Marital Status | | + + + | Lutheran Affiliation | NON | + + + | Race | White | + + + | Ethnic Group | Not or | + + + Author + + + | Author | [facility] | + + + | Organization | [facility] | + + + [...] [place] | | | | | [address] | | + + + + + Care Team Providers + +------+ + | Care Carbider Name | Role | Phone | + +------+ + | Zeyad May MD | PCP | | + +------+ + Reason for Visit + + + | Reason | Comments | + + + | Shoulder pain | | + + + Consultation (Routine) +--------+--------+ + + + + | Status | Reason | Specialty | Diagnoses / | Referred By | Referred To | | | | | Procedures | Contact | Contact | +--------+--------+ + + + + | Closed | | Orthopedics | | [facility] | [place], | | | | | | Epic Dept | MD Misael | | | | | | | [address] | | | | | | | [address] | | | | | | | [place], | | | | | | | [place] | | | | | | | [address] | | | | | | | Phone: | | | | | | | [phone] | | | | | | | Fax: | | | | | | | [phone] | +--------+--------+ + + + + Encounter Details +--------+---------+ + + + | Date | Type | Department | Care Team | Description | +--------+---------+ + + + | 04/21/ | Office | Orthopaedics at | Misael Myers MD | Right shoulder pain, | | 2017 | Visit | [facility] [address] | [address] | unspecified | | | | Ave Mailcode: CH12A | [address] | chronicity (Primary | | | | Center for [facility] | [place], [place] | Dx) | | | | and Healing, | [address] | | | | | Floor [place], [place] | [phone] | | | | | [address] | | | | | | [phone] | | | +--------+---------+ + + + [...] encounter Progress Notes Misael Myers MD - 04/21/2016 10:45 AM PDT This is a 75 y.o. right-handed male who presented for consultation with regards to a compla int of right shoulder pain of 3 year duration. The pain began suddenly and has gradually dec reased to the point of now being minimal. History of a precipitating event was negative for this exacerbation. Pain is present across the posterior shoulder. The patient experiences pain confined to the shoulder region. The pain is of aching quality. The patient has aggravation of the pain wit h overhead activity. The pain is improved with rest , heat and pain medication. The patient has not previously undergone treatment. Of note patient has left shoulder subacromial decompression and distal clavicle resection which is doing well now Vitals Filed Vitals: 05/19/2013 10:25 AM BP: 116/65 Pulse: 49 Resp: 12 PainLoc: Shoulder (Right) Past Medical History Diagnosis Date NELY (obstructive sleep apnea) Past Surgical History Procedure Laterality Date Lipoma exicison 2002 Uppp 2005 Knee procedure 1958 Colonoscopy-last 2009 No current outpatient prescriptions on file prior to visit. No current facility-administered medications on file prior to visit. Allergies Allergen Reactions Naproxen Rash Ibuprofen Palpitations Only with Large dose amount reactions were irregular heart beat Moban (Molindone Hcl) Palpitations irregular heart beat Fam: Non-contributory SocialHistory History Social History Marital Status: Spouse Name: [...] oriented. The patient appeared consistent with the st ated age, in good general health and in no apparent distress. Vitals were There were no curly ls taken for this visit.. The patient had normal contour and symmetry of the upper extremiti es with no ecchymosis, swelling or muscular atrophy. The patient has normal contour and symmetry of the upper extremities with no ecchymosis, sw elling, lymphedema, or muscular atrophy. There are no surgical scars or other skin abnormali ties. The patient has normal cervical range of motion in flexion, extension, lateral bending and rotation. There is no spinal or paraspinal pain or tenderness to palpation. Spurling's sign is negative. The patient has normal spinal [...] Education and encouragement provided documented in this enc ounter Plan of Treatment Not on filedocumented as of this encounter Results X-RAY SHOULDER 3+ VIEWS RIGHT (04/21/2016 10:28 AM PDT) + + | Specimen | + + | | + + + + + | Narrative | Performed At | + + + | STUDY: SHOULDER 3 VIEWS RIGHT 04/21/16 10:21:17 HISTORY: Pain. | [facility] | | COMPARISON: May 19, 2013 FINDINGS: There is mild | RADIOLOGY VOICE | | unchanged glenohumeral joint space narrowing and articular spurring. | RECOGNITION | | Glenohumeral alignment is normal. Degeneration of the | | | acromioclavicular joint is unchanged. The soft tissues are normal. | | | IMPRESSION: Unchanged mild glenohumeral degenerative joint | | | disease. Unchanged degeneration of the acromioclavicular joint. | | | I have personally reviewed the images and, if necessary, edited | | | the report. I agree with the report as now presented. | | + + + + + | Procedure Note | + + | Service Account, Radiant Res In Interface - 04/21/2016 10:38 AM PDT STUDY: SHOULDER 3 | | VIEWS RIGHT 04/21/16 10:21:17HISTORY: Pain.COMPARISON: May 19, 2013FINDINGS: There | | is mild unchanged glenohumeral joint space narrowing and articular spurring. | | Glenohumeral alignment is normal. Degeneration of the acromioclavicular joint is | | unchanged. The soft tissues are normal.IMPRESSION: Unchanged mild glenohumeral | | degenerative joint disease.Unchanged degeneration of the acromioclavicular joint.I have | | personally reviewed the images and, if necessary, edited the report. I agree with the | | report as now presented. | | There is mild unchanged glenohumeral joint space narrowing and articular spurring. Glenohu meral alignment is normal. Degeneration of the acromioclavicular joint is unchanged. The sof t tissues are normal. | | | |IMPRESSION: | | | | Unchanged mild glenohumeral degenerative joint disease. | | | |Unchanged degeneration of the acromioclavicular joint. | | | | | |I have personally reviewed the images and, if necessary, edited the report. I agree with t he report as now presented. | + + + +---------+ + + | Performing | Address | City/State/Zipcode | Phone Number | | Organization | | | | + +---------+ + + | [facility] | | | | | VOICE RECOGNITION | | | | + +---------+ + + documented in this encounter Visit Diagnoses + + | Diagnosis | + + | Right shoulder pain, unspecified chronicity - Primary | + + documented in this encounter
--- OUTSIDE RECORDS SUMMARY | ~2018-07-16 | XMS | Encounter Summary ---
Demographics + + + | Address | [address] | | | [place] [address] | + + + | Home Phone | | + + + | Preferred Language | Unknown | + + + | Marital Status | | + + + | Church Affiliation | NON | + + + | Race | White | + + + | Ethnic Group | Not or | + + + Author + + + | Author | [facility] | + + + | Organization | [facility] | + + + | Address | Unknown | + + + | Phone | Unavailable | + + + Support + + + + + | Name | Relationship | Address | Phone | + + + + + | Elizabeth Welch | ECON | [address] | | | | | [place] | | | | | [address] | | + + + + + Care Team Providers + +------+ + | Care Hide Washer Name | Role | Phone | + [...] | | | | | Procedures | [facility] | Mailcode: | | | | | PHYSICAL | Rd | [facility] | | | | | THERAPY | [place], [place] | for Health | | | | | REFERRAL | [address] | and Healing, | | | | | | | 1st floor | | | | | | | [place], [place] | | | | | | | [address] | | | | | | | Phone: | | | | | | | [phone] | | | | | | | Fax: | | | | | | | [phone] | +--------+--------+ + + + + Encounter Details +--------+---------+ + + + | Date | Type | Department | Care Team | Description | +--------+---------+ + + + | 08/30/ | Office | [place] [facility] | Rupesh, | Shoulder pain, right | | 2013 | Visit | Therapy Services at | Alise, PT [address] | (Primary Dx) | | | | [facility] | [address] | | | | | [address] | [place], [place] | | | | | Mailcode: [facility] | [address] | | | | | [facility] | | | | | | and Healing, 1st | | | | | | floor [place], [place] | | | | | | [address] | | | | | | [phone] | | | +--------+---------+ + + + [...] documented as of this encounter Progress Notes Hayes Casiano - 08/30/2013 12:28 PM PDTFormatting of this note might be different from the o saul. [id number] KEVON WELCH Date of : 1940 Start of care: 05/19/2013 Date of onset: 03/21/2013 Referring/Attending Practitioner: Misael Myers Primary/Referral Diagnosis/ICD-9: Shoulder pain, right (primary encounter diagnosis) Insurance: Payor: [employer] MEDICARE Plan: [employer] MEDICARE Product Type: P PO Service period from: 05/19/2013 to 01/18/2014 Number visits used/authorized: 07/21 [facility] SUBJECTIVE: Current: Pt reports last session was too rough on him and left him aching for up to 4 days. He was unable to continue exercises during that period but has picked it up again since . He was concerned his responses to therapy were not listened too in last session and wan ts to be certain his limits are respected and remain therapeutic. Since his achiness resolv ed he feels his range of motion and pain tolerance have improved as well as his general func tion. He is pleased with his progress. History of Presenting Problem: Kevon Welch is [...] AROM Right Left Right 07/20/2013 Right 08/11/2013 Flexion 141 155 [id number]* [id number] Pre 125* Post 140 Abduction 146 150 [id number]* [id number] Pre 95* Post 132 ER at 90 deg abd 90 (60 at neutral) 90 79 no change Pre 48* no change IR at 90 deg abd 24 75 *indicates pain with movement Pre and post relative to treatment. STRENGTH Shoulder strength Right Left flexion 4-*/5 4+/5 abduction 4-*/5 4+/5 ER 4-*/5 4+/5 IR 4-*/5 4+/5 Rhomboids Middle Trapezius Lower Trapezius Palpation: Tenderness with palpation of infraspinatus insertion, supraspinatus muscle belly and insert ion Manual therapy, 40 minutes: CFM supraspinatus insertion, very light Posterior GH mobilization, grade II Inferior GH mobilization, grade II passive range of motion into abduction, flexion, and scaption CFM infraspinatus, very light Myofascial release of infraspinatus and supraspinatus muscle bodies, very light Therapeutic exercise, 10 minutes: Snow rachele on half foam roller, 10x Right IR behind back with sofiya assist, 10x Standing sleeper stretch against wall in ~70 degrees forward flexion, 1 min Home exercise program as of 08/11/2013 Sidelying shoulder ER with 2# Rows with green band Extension rows with green band IR series behind back Table top shoulder flexion Wall walk shoulder flexion (adjusted 08/18/2013) Table top shoulder abduction ER stretch at corner Standing sleeper stretch against wall in ~70 degrees forward flexion (added 08/30/2013) ASSESSMENT: Kevon is a 72 year old male who presents with right shoulder pain for 4 months duration fol lowing carrying chair up flight of stairs. Kevon demonstrates improved function, range of mo tion, and pain tolerance but is still very sensitive to greater tubercle palpation, proximal infra/supraspinatus muscle belly's, and posterior glenohumeral pressure. Snow rachele exerci se hurt in sitting on his sacrum and the sofiya assist exercise did not show therapeutic russ efit. He responded well to the sleeper stretch stating he can feel the point of a stretch b efore the point of pain and was instructed to stay out of pain range. Kevon is progressing and will benefit from continued range of motion exercises. Kevon requires services that can be [...] home exercise program as pt lives in [facility] for posterior do minant shoulder strength Frequency/Duration: Follow up prn due to pt living in [facility], [place] Treatment began: 1100 am Treatment ended: 1150 am This note is to serve as the discharge summary if Kevon fails to attend further Physical Th erapy appointments or contact the therapist regarding any change in their status. Hayes Casiano, SPT I was present with the student and directed the entire treatment. I discussed the case wit h the student and agree with the documentation in the student's note. Alise Washington, PT [facility] [address] Mailcode: [place] [address] documented in this encounter Plan of Treatment Not on filedocumented as of this encounter Procedures + +--------+ + + + | Procedure Name | Priori | Date/Time | Associated Diagnosis | Comments | | | ty | | | | + +--------+ + + + | [place] MANUAL THER | Routin | 08/30/2013 | Shoulder pain, | | | TECH,1+REGIONS,EA 15 | e | 1:58 PM | right | | | MIN | | PDT | | | + +--------+ + + + | OK THERAPEUTIC | Routin | 08/30/2013 | Shoulder pain, | | | EXERCISES | e | 1:58 PM | right | | | | | PDT | | | + +--------+ + + + documented in this encounter Visit Diagnoses + + | Diagnosis | + + | Shoulder pain, right - Primary Pain in joint, shoulder region | + + documented in this encounter
--- OUTSIDE RECORDS SUMMARY | ~2018-07-16 | XMS | Encounter Summary ---
Demographics + + + | Address | [address] | | | [place] [address] | + + + | Home Phone | | + + + | Preferred Language | Unknown | + + + | Marital Status | | + + + | Baptist Affiliation | NON | + + + | Race | White | + + + | Ethnic Group | Not or | + + + Author + + + | Author | [facility] | + + + | Organization | [facility] | + + + | Address | Unknown | + + + | Phone | Unavailable | + + + Support + + + + + | Name | Relationship | Address | Phone | + + + + + | Elizabeth Welch | ECON | [address] | | | | | [place] | | | | | [address] | | + + + + + Care Team Providers + +------+ + | Care Fast Food Shift Lead Name | Role | Phone | + +------+ + | Doyle Johnson MD | PCP | Unavailable | + +------+ + Reason for Visit AUTH/CERT (Routine) +--------+--------+ + + + + | Status | Reason | Specialty | Diagnoses / | Referred By | Referred To | | | | | Procedures | Contact | Contact | +--------+--------+ + + + + | Closed | | | | | | +--------+--------+ + + + + Encounter Details +--------+---------+ + + + | Date | Type | Department | Care Team | Description | +--------+---------+ + + + | 07/21/ | Surgery | [facility] | Misael Myers MD | ARTHROSCOPIC | | 2011 | | [place] [facility] | [address] | SUBACROMIAL | | | | and Healing Surgery | [facility] | DECOMPRESSION; | | | | Center Admitting | [place], [place] | DISTAL CLAVICLE | | | | Desk Located on the | [address] | RESECTION AND | | | | 4th floor [address] | [phone] | POSSIBLE BICEPS | | | | [address] [place], | | [place] | | | | [place] [address] | | | +--------+---------+ + + + [...] + + + | Blood Pressure | 119/70 | 07/22/2011 11:30 AM | | | | | PDT | | + + + + + | Pulse | 60 | 07/22/2011 11:30 AM | | | | | PDT | | + + + + + | Temperature | 36.5 C (97.7 F) | 07/22/2011 11:30 AM | | | | | PDT | | + + + + + | Respiratory Rate | 15 | 07/22/2011 11:30 AM | | | | | PDT | | + + + + + | Oxygen Saturation | 99% | 07/22/2011 11:30 AM | | | | | PDT | | + + + + + | Inhaled Oxygen | - | - | | | Concentration | | | | + + + + + | Weight | 70.3 kg (155 lb) | 07/22/2011 6:13 AM | | | | | PDT | | + + + + + | Height | 172.7 cm (5' 8") | 07/22/2011 6:13 AM | | | | | PDT | | + + + + + | Body Mass Index | 23.57 | 07/22/2011 6:13 AM | | | | | PDT | | + + + + + documented in this encounter Discharge Instructions Instructions Britta Etienne RN - 07/22/2011General Discharge Instructions for Same-Day Pr ocedure Patients: Remember that you are under the influence of medications. Do not stay alone. A responsible person should be with you. Do not drive, drink alcohol or make important personal or business decisions for 24 hour s. Resume normal activity and return to work when advised by your Doctor. Pain Management: Your last oral pain medication was given at: None needed Please follow your Doctor s instructions on the medication bottle. Do not take pain medication on an empty stomach, as this may cause nausea and vomiting. Do not drive or drink alcohol while on narcotic pain medication. If you received a Peripheral Nerve Block, please take pain medication when numbing begins to wear off or when you go to bed. This will allow for pain coverage when your nerve block wears off during the night. If pain is not relieved or increases despite following these instructions, please call yo Doctor. Diet: If you do not experience nausea or vomiting resume your regular diet. Eat lightly and a void large, high fat or highly spiced meals for 24-48 hours. Constipation can be a side effect of narcotic pain medication. Take stool softeners, inc rease dietary fiber and drink plenty of water to prevent this. Wound/Dressing/Drain Care: Change your dressing according to your Doctor s instructions. Call your Doctor if there is excessive bleeding, redness, swelling or drainage at the ope rative site. IV Site Care Instructions: Monitor IV site for pain, redness, swelling and/or drainage. If present, call your Docto r immediately. Minor redness and/or tenderness may be treated with warm, moist compresses for 24-48 hour s. If the area is still red and/or tender after this, notify your Doctor. Call your Doctor if you experience: Persistent nausea or vomiting. Fever ?101F or chills. Increased or uncontrolled pain despite taking pain medications. Call 911 if you experience difficulty breathing or unusual shortness of breath. Additional Home Care Instructions: Per Dr. Myers's post-op instructions Follow-up Appointment: As scheduled After arriving home you may receive a patient satisfaction survey from "Kristin Serrano". We daniel morales appreciate your feedback on the survey to help us provide excellent service to you and your family. documented in this encounter Progress Notes Anson Faustin MD - 07/22/2011 10:20 AM PDTBRIEF OPERATIVE NOTE Procedure Date: 07/22/11 Author: ANSON FAUSTIN MD Attending Physician: jose Assistants: korina Preoperative Diagnosis: L shoulder subacromial impingement, AC OA, degenerative labral tear Postoperative Diagnosis: same Procedure Performed: 1. Left shoulder arthroscopy with debridement of labrum, 2. Subacromial decompression 3. Distal clavicle excision Anesthesia: general plus continuous infusion catheter block Estimated Blood Loss: minimal Fluids: per anesthesia Specimens: none Complications: none Drains: none Disposition: pacu Findings: see dictation Post-operative Plan: FU in 2 weeks for wound check/suture removal documented in thi s encounter Plan of Treatment Not on filedocumented as of this encounter Procedures + +--------+ + + + | Procedure Name | Priori | Date/Time | Associated Diagnosis | Comments | | | ty | | | | + +--------+ + + + | PROCEDURE NOTE | Routin | 03/16/2015 | | Results for this | | | e | 2:15 AM | | procedure are in the | | | | PST | | results section. | + +--------+ + + + | PROCEDURE NOTE | Routin | 03/16/2015 | | Results for this | | | e | 2:10 AM | | procedure are in the | | | | PST | | results section. | + +--------+ + + + | ARTHROSCOPIC | Electi | 07/22/2011 | Rotator cuff | | | SUBACROMIAL | ve | 7:43 AM | (capsule) sprain | | | DECOMPRESSION | Surgic | PDT | Osteoarthrosis, | | | | al | | unspecified whether | | | | | | generalized or | | | | | | localized, shoulder | | | | | | region Bicipital | | | | | | tenosynovitis | | + +--------+ + + + | ORDERS OTHER | | 07/22/2011 | | Results for this | | | | 12:00 AM | | procedure are in the | | | | PDT | | results section. | + +--------+ + + + documented in this encounter Results PROCEDURE NOTE (03/16/2015 2:15 AM PST) + + | Transcriptions | + + | Daniella Menjivar - 07/24/2011 1:12 PM PDT | + + PROCEDURE NOTE (03/16/2015 2:10 AM PST)ORDERS OTHER (07/22/2011 12:00 AM PDT) + + + | Narrative | Performed At | + + + | | | + + + + + | Transcriptions | + + | Otto Faculty - 07/24/2011 1:12 PM PDT | + + documented in this encounter Visit Diagnoses + + | Diagnosis | + + | Rotator cuff (capsule) sprain | + + | Osteoarthrosis, unspecified whether generalized or localized, shoulder region | + + | Bicipital tenosynovitis | + + documented in this encounter Administered Medications + +--------+ +-------+------+ + | Medication Order | MAR | Action | Dose | Rate | Site | | | Action | Date | | | | + +--------+ +-------+------+ + | bupivacaine-EPINEPHrine (aka | Given | 07/22/19 | 20 mL | | Left | | MARCAINE-EPINEPHRINE) 0.25 | | 12 8:18 | | | Shoulder | | %-1:200,000 injection | | AM PDT | | | | | INTRAPROCEDURE PRN, Starting Tue | | | | | | | 07/22/11 at 0818, Until Tue | | | | | | | 12 at 1018 | | | | | | + +--------+ +-------+------+ + +---+---+ | | | +---+---+ + +-------+ +---+---+ + | EPI 1:1000-LR injection | Given | 07/22/19 | | | Left | | INTRAPROCEDURE PRN, Starting Tue | | 12 8:18 | | | Shoulder | | 07/22/11 at 0818, Until Tue | | AM PDT | | | | | 07/22/11 at 1018 | | | | | | + +-------+ +---+---+ + +---+---+ | | | +---+---+ + +---------+ + + +---+ | lactated ringers IV 10 mL/hr, | New Bag | 07/22/19 | 10 mL/hr | 10 mL/hr | | | intravenous, PROCEDURE | | 12 6:48 | | | | | CONTINUOUS, Starting 07/22/11 | | AM PDT | | | | | at 0615, Until 07/22/11 at | | | | | | | 1327 | | | | | | + +---------+ + + +---+ +---+---+ | | | +---+---+ documented in this encounter
--- OUTSIDE RECORDS SUMMARY | ~2018-07-16 | XMS | Encounter Summary ---
Demographics + + + | Address | [address] | | | [place] [address] | + + + | Home Phone | | + + + | Preferred Language | Unknown | + + + | Marital Status | | + + + | Yazidism Affiliation | NON | + + + | Race | White | + + + | Ethnic Group | Not or | + + + Author + + + | Author | [facility] | + + + | Organization | [facility] [place] [facility] | + + + | Address | Unknown | + + + | Phone | Unavailable | + + + Support + + + + + | Name | Relationship | Address | Phone | + + + + + | Elizabeth Welch | ECON | [address] | | | | | [place] | | | | | [address] | | + + + + + Care Team Providers + +------+ + | Care Drapery Seamstress Name | Role | Phone | + +------+ + | Doyle Johnson MD | PCP | Unavailable | + +------+ + Reason for Visit +--------+ + | Reason | Comments | +--------+ + | Other | home pump- patient initiated | +--------+ + Encounter Details +--------+ + + + + | Date | Type | Department | Care Team | Description | +--------+ + + + + | 07/21/ | Telephone | [facility] | Maddie Luna, | Other (home pump- | | 2011 | | Pain Center at | MANAGER EQUITY [address] | patient initiated) | | | | [facility] | [place], [place] | | | | | [address] | [address] | | | | | Mail Code: [facility] | [phone] | | | | | [facility] | | | | | | and | | | | | | Floor [place], [place] | | | | | | [address] | | | | | | [phone] | | | +--------+ + + + + Social History + +-------+ [...] + + documented as of this encounter Plan of Treatment Not on filedocumented as of this encounter Visit Diagnoses Not on filedocumented in this encounter"
--- OUTSIDE RECORDS SUMMARY | ~2018-07-16 | XMS | Encounter Summary ---
Demographics + + + | Address | [address] | | | [place] [address] | + + + | Home Phone | | + + + | Preferred Language | Unknown | + + + | Marital Status | | + + + | Islam Affiliation | NON | + + + [...] [place] | | | | | [address] | | + + + + + Care Team Providers + +------+ + | Care Orthotics Technician Name | Role | Phone | + [...] Closed | | Physical | Diagnoses | [place], | [facility] | | | | Therapy | Shoulder | [place] | [address] | | | | | pain | [address] | [address] | | | | | Procedures | Ave | Mailcode: | | | | | PHYSICAL | [place], [place] | [address] | | | | | THERAPY | [address] | for Health | | | | | REFERRAL | Phone: | and Healing, | | | | | | [phone] | 1st floor | | | | | | Fax: | [place], [place] | | | | | | [phone] | [address] | | | | | | | Phone: | | | | | | | [phone] | | | | | | | Fax: | | | | | | | [phone] | +--------+--------+ + + + + Encounter Details +--------+---------+ + + + | Date | Type | Department | Care Team | Description | +--------+---------+ + + + | 06/29/ | Office | [facility] | Philly Rain, | Shoulder pain | | 2011 | Visit | Therapy Services at | PT [address] | (Primary Dx) | | | | [facility] | Celestine Carmen | | | | | [address] | [place], [place] | | | | | Mailcode: CH[facility] | [address] | | | | | [facility] | | | | | | and Ned, 1st | | | | | | floor [place], [place] | | | | | | [address] | | | | | | [phone] | | | +--------+---------+ + + + [...] encounter Progress Notes Philly Rain, PT - 06/30/2011 11:08 AM PDTFormatting of this note might be different fr om the original. [id number] KEVON WELCH Date of : 1940 Start of care: 06/30/2011 Date of onset:12/24/10 Referring/Attending Practitioner: Misale Myers MD . Primary/Referral Diagnosis/ICD-9: Encounter Diagnoses Name Primary? Shoulder pain Yes Insurance: Payor: ODS MEDICARE Plan: [employer]DS MEDICARE Product Type: PPO Service period from: 06/30/2011 to: 09/28/11 Number visits used/authorized: 4 [facility]: Pre-op SHOULDER Subjective: Pt is here with his today to go over post op instructions and PROM ex Pt states he will be staying nearby after surgery and would be able to attend PT post op Pt states he has been doing HOME EXERCISE PROGRAM and has no questions about current ex pro gram Pt does have questions about post op expectations and protocol and would like to review tho se things today History of Presenting Problem: Kevon Welch is [...] joint arthritis, no obvious biceps p athology Mechanism of Injury: Unknown, possibly with helping friends move in weeks prior to onset of pain Past Medical History: has a past medical history of NELY (obstructive sleep apnea). Past Surgical History: has past surgical history that includes lipoma exicison 2002; UPPP 2005; knee procedure 1958; and colonoscopy-last 2009. MEDICATIONS: ibuprofen 200 mg Oral Tablet, Take 200 mg by mouth every six hours as needed. oxyCODONE, immediate release, 5 mg Oral Tablet, Take one to three every 3-6 hours as needed by mouth Previous treatment: physical therapy. Kevon's Goals: 1. Decrease shoulder pain 2. Complete daily activities 3. Learn post op protocol OBJECTIVE: Posture/alignment: Rounded shoulders, forward head Palpation: exquisite tenderness at posterior cuff mm THERAPEUTIC ACTIVITY x15 Education of post-op precautions. Education of Rehabilitation Timeline, including PROM/AAROM/AROM/Light strengthening/functio nal activity progression as saba. Education of icing 20 min 3x day. Education of postioning and support of of UE with correct usage with sling or pillows Pt ed on light cardiovascular exercise as tolerated with sling in place THERAPEUTIC EXERCISE x15 Treatment consisted of reviewing post operative home exercise program, written instruction provided for conservative RX of RCR protocol. Will modify post surgery if RCR not performed and activity is less restricted. Pt's instructed in and performed PROM for L shoulder ER in scaption with towel rolls and PROM flexion supine to 90 degrees. Intervention Date* Ball squeezes 06/30/2011 1 set of 10 reps, 3 x daily Wrist flexion/extension 06/30/2011 1 set of 10 reps, 3 x daily Forearm supination/pronation 06/30/2011 1 set of 10 reps, 3 x daily Pendulums-passive 06/30/2011 1 min clockwise/counter clockwise), emphasis on momentum of bod y to move UE Elbow flexion A/AAROM as tolerated 06/30/2011 1 set of 10 reps, 3 x daily (on hold if doing biceps repair) Passive shoulder flexion supine with partner or univolved extremity assist 06/30/2011 1 se t 10 reps, 3 x daily Passive supine external rotation with cane or partner assist 06/30/2011 1 set 10 reps, 3 x daily Passive supine shoulder scaption w with partner assist 06/30/2011 1 set 10 reps, 3 x daily Shoulder blade pinches 06/30/2011 1 set 20 reps, hold 5 seconds each rep, 3 x daily Neck stretches (flexion, sidebend, rotation) 06/30/2011 1 set 10 reps, 3 x daily. 06/30/2011 2-3x day * indicates date intervention started. see comments for details of modifications, deletions ASSESSMENT: Kevon presents with symptoms consistent with L ROTATOR CUFF tear and is pre-operative for L RCR vs debridement. He is receptive and understands post-op precautions and exercises. Br uce requires services that can be safely and effectively performed only by a qualified thera pist to address the following problems and achieve the following goals: Rehab Potential: Good Problem List: Decreased Shoulder ROM Decreased Shoulder Strength Decreased awareness of post op precautions Shoulder Pain GOALS, discussed with patient, due today: Compliant with post-op precautions. Demonstrate understanding and independence of acute post-op exercises. PLAN: Await further post-op orders Read operative report Per protocol. Reinforce precautions. Frequency/Duration: Await further post-op orders Treatment began: 1100 Treatment ended: 1130 Reviewed cancel/no show policy with patient. Pt voiced understanding. "At times we understand you must cancel. We request that all cancellations be made at as t 24 hours in advance by calling [phone]. Our office is open 7am-6pm and there is a [employer] ssage line 24 hours a day. Any appointment [...] change in their status. PHILLY RAIN PT [facility] [address] Mailcode: [address] [facility], 1st Floor [place] [facility] [address] documented in this e ncounter Plan of Treatment Not on filedocumented as of this encounter Procedures + +--------+ + + + | Procedure Name | Priori | Date/Time | Associated Diagnosis | Comments | | | ty | | | | + +--------+ + + + | [place] MANUAL THER | Routin | 06/30/2011 | Shoulder pain | | | TECH,1+REGIONS,EA 15 | e | 4:12 PM | | | | MIN | | PDT | | | + +--------+ + + + | [place] THERAPEUTIC | Routin | 06/30/2011 | Shoulder pain | | | EXERCISES | e | 4:12 PM | | | | | | PDT | | | + +--------+ + + + documented in this encounter Visit Diagnoses + + | Diagnosis | + + | Shoulder pain - Primary Pain in joint, shoulder region | + + documented in this encounter
--- OUTSIDE RECORDS SUMMARY | ~2018-07-16 | XMS | Encounter Summary ---
Demographics + + + | Address | [address] | | | [place] [address] | + + + | Home Phone | | + + + | Preferred Language | Unknown | + + + | Marital Status | | + + + | Yarsanism Affiliation | NON | + + + | Race | White | + + + | Ethnic Group | Not or | + + + Author + + + | Author | [facility] | + + + | Organization | [facility] | + + + | Address | Unknown | + + + | Phone | Unavailable | + + + Support + + + + + | Name | Relationship | Address | Phone | + + + + + | Elizabeth Welch | ECON | [address] | | | | | [place] | | | | | [address] | | + + + + + Care Team Providers + +------+ + | Care Rotor Assembler Name | Role | Phone | + [...] | | | | | PHYSICAL | [facility] [place] | [facility] | | | | | THERAPY | [address] | for Health | | | | | REFERRAL | Phone: | and Healing, | | | | | | [phone] | 1st floor | | | | | | Fax: | [place], [place] | | | | | | [phone] | [address] | | | | | | | Phone: | | | | | | | [phone] | | | | | | | Fax: | | | | | | | [phone] | +--------+--------+ + + + + Encounter Details +--------+---------+ + + + | Date | Type | Department | Care Team | Description | +--------+---------+ + + + | 09/04/ | Office | [facility] | Lena Rain, | Shoulder pain | | 2011 | Visit | Therapy Services at | PT [address] | (Primary Dx) | | | | [facility] | [address] | | | | | [address] | [place], [place] | | | | | Mailcode: [facility] | [address] | | | | | [facility] | | | | | | and Healing, 1st | | | | | | floor [facility] [place] | | | | | | [address] | | | | | | [phone] | | | +--------+---------+ + + + [...] documented as of this encounter Progress Notes Koffi Lena, PT - 09/05/2011 10:49 AM PDTFormatting of this note might be different fr om the original. [id number] KEVON WELCH Date of : 1940 Start of care: 07/24/11 Date of onset:07/22/11 Referring/Attending Practitioner: Misael Myers MD . Primary/Referral Diagnosis/ICD-9: Encounter Diagnoses Name Primary? Shoulder pain Yes Insurance: Payor: ODS MEDICARE Plan: ODS MEDICARE Product Type: PPO Service period from: 08/24/11-10/23/11 Number visits used/authorized: 6 [facility] PHYSICAL THERAPY: Post-op SHOULDER PO week 6 S/P Arthroscopic SAD, DCE, labral debridement Subjective: Pt reports that his shoulder pain is better; Bicipital pain and knot in that proximal arm area seem to be getting better now with stretc greta Pain <1/10 at rest History of Presenting [...] sling correctly Posture/alignment: Rounded shoulders, forward head Palpation:mild TTP LH bicep; bicep -firm mm knot in at insertion of deltoid and biceps PROM: post RX FLEX 120 degrees in [...] to buttock, gentle, no pain 3x30 sec ADDED 09/05/11 Supine pointers (modified bench press with incline) 2x12 ASSESSMENT: Pt's bicipital pain improving, able to wear sling minimally for pain relief and this seems to be helping with ROM improvements Pt with good tolerance to new ex; weak in periscapula mm and serratus anterior GOALS, Discussed with patient, due in 12-16 weeks: 1. Increase strength of ROTATOR CUFF/ER to 4/5; periscapular mm to 4+/5 2. Demonstrate understanding and independence HOME EXERCISE PROGRAM 3. Increase shoulder AROM to full and painfree 4. Normalize scapulo-humeral kinematics PLAN: Continue to address limitation in ROM and pain Progress to A/AAROM as tolerated Therapeutic exercise, Manual Therapy, Therapeutic Activity, Manual Therapy, Neuromuscular R e-Education, Gait Training, Modalities as needed, Pt. Education, HOME EXERCISE PROGRAM Per protocol. Reinforce precautions. Frequency/Duration: 1x every week for the next 3-4 weeks, then decrease frequency as able Treatment began: 1025 Treatment ended: 1105 Reviewed cancel/no show policy with patient. Pt voiced understanding. "At times we understand you must cancel. We request that all cancellations be made at [facility] 24 hours in advance by calling [phone]. Our office is open 7am-6pm and there is a [employer] line 24 hours a day. Any appointment [...] change in their status. LENA RAIN PT [facility] REHABILITATION SERVICES AND HAND THERAPY [address] Mailcode: [address] [address] documented in this e ncounter Plan of Treatment Not on filedocumented as of this encounter Procedures + +--------+ + + + | Procedure Name | Priori | Date/Time | Associated Diagnosis | Comments | | | ty | | | | + +--------+ + + + | [place] MANUAL THER | Routin | 09/08/2011 | Shoulder pain | | | TECH,1+GERHARD,EA 15 | e | 10:41 AM | | | | MIN | | PDT | | | + +--------+ + + + | [place] THERAPEUTIC | Routin | 09/08/2011 | Shoulder pain | | | EXERCISES | e | 10:41 AM | | | | | | PDT | | | + +--------+ + + + documented in this encounter Visit Diagnoses + + | Diagnosis | + + | Shoulder pain - Primary Pain in joint, shoulder region | + + documented in this encounter
--- OUTSIDE RECORDS SUMMARY | ~2018-07-16 | XMS | Encounter Summary ---
Demographics + + + | Address | [address] | | | [place] [address] | + + + | Home Phone | | + + + | Preferred Language | Unknown | + + + | Marital Status | | + + + | Temple Affiliation | NON | + + + | Race | White | + + + | Ethnic Group | Not or | + + + Author + + + | Author | [facility] | + + + | Organization | [facility] | + + + | Address | Unknown | + + + | Phone | Unavailable | + + + Support + + + + + | Name | Relationship | Address | Phone | + + + + + | Elizabeth Welch | ECON | [address] | | | | | [place] | | | | | [address] | | + + + + + Care Team Providers + +------+ + | Care Hr Analyst Name | Role | Phone | + [...] | | | | | Procedures | [facility] | Mailcode: | | | | | PHYSICAL | Rd | [facility] | | | | | THERAPY | [place], [place] | for Health | | | | | REFERRAL | [address] | and Healing, | | | | | | | 1st floor | | | | | | | [place], [place] | | | | | | | [address] | | | | | | | Phone: | | | | | | | [phone] | | | | | | | Fax: | | | | | | | [phone] | +--------+--------+ + + + + Encounter Details +--------+---------+ + + + | Date | Type | Department | Care Team | Description | +--------+---------+ + + + | 01/18/ | Office | [facility] | Rupesh, | Shoulder pain, right | | 2013 | Visit | Therapy Services at | Alise, PT [address] | (Primary Dx) | | | | [facility] | [address] | | | | | [address] | [place], [place] | | | | | Mailcode: [facility] | [address] | | | | | [facility] | | | | | | and Healing, 1st | | | | | | floor [place], [place] | | | | | | [address] | | | | | | [phone] | | | +--------+---------+ + + + [...] encounter Progress Notes Alise [place], PT - 01/18/2014 10:57 AM PST [id number] KEVON WELCH Date of : 1940 Start of care: 05/19/2013 Date of onset: 03/21/2013 Referring/Attending Practitioner: Misael Myers Primary/Referral Diagnosis/ICD-9: Shoulder pain, right (primary encounter diagnosis) Insurance: Payor: Setred MEDICARE Plan: Setred MEDICARE Product Type: P PO Service period from: 05/19/2013 to 01/18/2014 Number visits used/authorized: 11/20 [facility] PHYSICAL THERAPY TREATMENT - ORTHO SUBJECTIVE: Current: Shoulder is doing very unless he tries to put his hand behind his back. Has full range of motion except behind his back. Is careful with both arms now. Exercises are helpi ng. Doing rows, extension rows, stick behind back, isometric ER/IR behind back with band, s gisel stretch with arm resting on top of tall dresser. Realized looking in the mirror that he was sticking elbow out, now keeping elbow close and able to touch bottom of scapula. History of Presenting Problem: Kevon Welch is [...] a half. Pt is very right wisam luis Lund's Goals: 1. Return to full use of arm 2. Learn home exercise program OBJECTIVE: Posture/alignment/observation: rounded shoulders, mild inferior angle scapular winging RANGE OF MOTION Shoulder AROM Right Left Right 07/20/2013 Right 08/11/2013 Right 09/22 Right/Left 10/18/2013 Right 01/18/2014 Flexion 141 155 [id number]* [id number] Pre 125* Post 140 145 145/150 156 Abduction 146 150 [id number]* [id number] Pre 95* Post 132 144 140/145 150 ER at 90 deg abd 90 (60 at neutral) 90 79 no change Pre 48* no change 70 82/84 90 IR at 90 deg abd 24 75 L5/T7 T9 *indicates pain with movement Palpation: Tenderness with palpation of infraspinatus insertion, supraspinatus muscle belly and insert ion Manual therapy, 15 minutes: Posterior GH mobilization, grade III in neutral and 90 deg abduction CFM long head of biceps tendon Sidelying scapular mobilization for downward rotation Therapeutic exercise, 25 minutes: Final home exercise program as of 01/18/2014 IR stretch behind back with towel Extension and IR behind back with towel bilateral ER with blue band Row with blue band High row with blue band scaption with 2# ASSESSMENT: Kevon is a 72 year old male who presents with right shoulder pain for 4 months duration fol lowing carrying chair up flight of stairs. Pt now with full range of motion, able to comple te all ADLs & hobbies, and good compliance with home exercise program. Pt with gradual incr ease in IR with manual therapy. Pt demonstrate independence with updated home exercise prog agapito at end of session. 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 Pt will be discharged to [facility] t home exercise program at this time. Kevon requires services that can be safely and effect ively performed only by a qualified therapist to address the following problems and achieve the following goals: DISCHARGE FUNCTIONAL GOALS, discussed with Kevon, due in 6 weeks: Pt will demonstrate 160 deg shoulder flexion in order to reach high shelf - MET 01/18 Pt will report washing back with 0/10 pain - MET 01/18 Pt will be independent with home exercise program 5/7 days - MET 01/18 PLAN OF CARE: Discharge to independent home exercise program Treatment began: 1105 am Treatment ended: 1140 am This note is to serve as the discharge summary if Kevon fails to attend further Physical Th erapy appointments or contact the therapist regarding any change in their status. Alise [place], PT [facility] REHABILITATION SERVICES AND HAND THERAPY [address] Mailcode: [place] [address] documented in this encounter Plan of Treatment Not on filedocumented as of this encounter Procedures + +--------+ + + + | Procedure Name | Priori | Date/Time | Associated Diagnosis | Comments | | | ty | | | | + +--------+ + + + | [place] MANUAL THER | Routin | 01/18/2014 | Shoulder pain, | | | TECH,1+REGIONS,EA 15 | e | 1:58 PM | right | | | MIN | | PST | | | + +--------+ + + + | [place] THERAPEUTIC | Routin | 01/18/2014 | Shoulder pain, | | | EXERCISES | e | 1:58 PM | right | | | | | PST | | | + +--------+ + + + documented in this encounter Visit Diagnoses + + | Diagnosis | + + | Shoulder pain, right - Primary Pain in joint, shoulder region | + + documented in this encounter
--- OUTSIDE RECORDS SUMMARY | ~2018-07-16 | XMS | Encounter Summary ---
Demographics + + + | Address | [address] | | | [place] [address] | + + + | Home Phone | | + + + | Preferred Language | Unknown | + + + | Marital Status | | + + + | Confucianist Affiliation | NON | + + + | Race | White | + + + | Ethnic Group | Not or | + + + Author + + + | Author | [facility] | + + + | Organization | [facility] | + + + | Address | Unknown | + + + | Phone | Unavailable | + + + Support + + + + + | Name | Relationship | Address | Phone | + + + + + | Elizabeth Welch | ECON | [address] | | | | | [place] | | | | | [address] | | + + + + + Care Team Providers + +------+ + | Care Group Contract Analyst Name | Role | Phone | [...] | | | | | THERAPY | [facility] [place] | for Health | | | | | REFERRAL | [address] | and Healing, | | | | | | Phone: | 1st floor | | | | | | [phone] | [place], [place] | | | | | | Fax: | [address] | | | | | | [phone] | Phone: | | | | | | | [phone] | | | | | | | Fax: | | | | | | | [phone] | +--------+--------+ + + + + Encounter Details +--------+---------+ + + + | Date | Type | Department | Care Team | Description | +--------+---------+ + + + | 11/12/ | Office | [facility] | Lena Rain, | Shoulder pain | | 2011 | Visit | Therapy Services at | PT [address] | (Primary Dx) | | | | [facility] | [address] | | | | | [address] | [facility] [place] | | | | | Mailcode: [facility] | [address] | | | | | [facility] | | | | | | and Healing, 1st | | | | | | floor [place], [place] | | | | | | [address] | | | | | | [phone] | | | +--------+---------+ + + + [...] this encounter Progress Notes AlexeybingLena, PT - 11/13/2011 2:04 PM PDTFormatting of this note might be different fr om the original. [id number] KEVON WELCH Date of : 1940 Start of care: 07/24/11 Date of onset:07/22/11 Referring/Attending Practitioner: Misael Myers MD . Primary/Referral Diagnosis/ICD-9: Encounter Diagnoses Name Primary? Shoulder pain Yes Insurance: Payor: [employer] MEDICARE Plan: ODS MEDICARE Product Type: PPO Service period from: 08/24/11-11/22/11 Number visits used/authorized: 8 [facility] PHYSICAL THERAPY: Post-op SHOULDER PO week S/P Arthroscopic SAD, DCE, labral debridement Subjective: Pt states that walking really helps a lot to work on dorsiflexion of the R ankle; he has a date set for his surgery on 11/28/11; will modify his HOME EXERCISE PROGRAM to accommodate l umbar surgery post op restrictions as appropriate Pt reports that his shoulder pain is mostly resolved He notes that he has been doing his HOME EXERCISE PROGRAM and his ROM is improving History of Presenting Problem: Kevon Welch is [...] of deltoid and biceps-pre sent AROM: FLEX 140 (hiking of L shoulder at end range) EXTERNAL ROTATION At side 70 degrees at 45 degrees abd INTERNAL ROTATION Behind back T10 PROM: pre RX FLEX 150 degrees supine ER: 75 degrees at 90 degrees ABD MANUAL THERAPY [...] of reviewing post operative home exercise program Exercises streamlined as he is also doing LB HOME EXERCISE PROGRAM, handout given: Sidelying EXTERNAL ROTATION With no weight [id number] Standing B EXTERNAL ROTATION With yellow Tband 1x12 (increase up to 3 sets)-verbal TV watching stretch supine with towel rolls supporting weight of elbow x 5 min -reviewed t owel placement and performed for 5 min Standing Ext with yellow Tband [id number] INTERNAL ROTATION Behind the back stretch with towel 3x60 sec-verbal Can continue table stretches for flexion and scaption, as well as biceps stretch behind the back ASSESSMENT: Pt's PROM and AROM as well as functional use of L UE improved since last visit for the shou lder Pt still working on mid to end ranges that are still quite uncomfortable for ER Pt lacks good scapulohumeral rhythm due to [...] and painfree-progressing 4. Normalize scapulo-humeral kinematics-progressing PLAN: Pt to F/U 1x prior to surgery Continue to address limitation in ROM as well as strengthening of ROTATOR CUFF and scapular retraining Recommend 1 x week for shoulder for 1-2 weeks to continue progressing; then decrease to [...] PROGRAM Per protocol. Reinforce precautions. Treatment began: 1404 Treatment ended: 1449 Reviewed cancel/no show policy with patient. Pt voiced understanding. "At times we understand you must cancel. We request that all cancellations be made at as 24 hours in advance by calling [phone]. Our office is open 7am-6pm and there is a [employer] ssage line 24 hours a day. Any [...] change in their status. LENA RAIN PT [facility] REHABILITATION SERVICES AND HAND THERAPY [address] Mailcode: [address] And [facility], [address] [place] [address] documented in this e ncounter Plan of Treatment Not on filedocumented as of this encounter Procedures + +--------+ + + + | Procedure Name | Priori | Date/Time | Associated Diagnosis | Comments | | | ty | | | | + +--------+ + + + | [place] MANUAL THER | Routin | 11/13/2011 | Shoulder pain | | | TECH,1+REGIONS,EA 15 | e | 4:58 PM | | | | MIN | | PDT | | | + +--------+ + + + | [place] THERAPEUTIC | Routin | 11/13/2011 | Shoulder pain | | | EXERCISES | e | 4:58 PM | | | | | | PDT | | | + +--------+ + + + documented in this encounter Visit Diagnoses + + | Diagnosis | + + | Shoulder pain - Primary Pain in joint, shoulder region | + + documented in this encounter
--- OUTSIDE RECORDS SUMMARY | ~2018-07-16 | XMS | Encounter Summary ---
Demographics + + + | Address | [address] | | | [place] [address] | + + + | Home Phone | | + + + | Preferred Language | Unknown | + + + | Marital Status | | + + + | Restorationist Affiliation | NON | + + + | Race | White | + + + | Ethnic Group | Not or | + + + Author + + + | Author | [facility] | + + + | Organization | [facility] | + + + | Address | Unknown | + + + | Phone | Unavailable | + + + Support + + + + + | Name | Relationship | Address | Phone | + + + + + | Elizabeth Welch | ECON | [address] | | | | | [place] | | | | | [address] | | + + + + + Care Team Providers + +------+ + | Care Cooler Worker Name | Role | Phone | + [...] | | | | | REFERRAL | [address] | and Healing, | | | | | | Phone: | 1st floor | | | | | | [phone] | [place], [place] | | | | | | Fax: | [address] | | | | | | [phone] | Phone: | | | | | | | [phone] | | | | | | | Fax: | | | | | | | [phone] | +--------+--------+ + + + + Encounter Details +--------+---------+ + + + | Date | Type | Department | Care Team | Description | +--------+---------+ + + + | 11/02/ | Office | [facility] | Lena Rain, | Shoulder pain | | 2011 | Visit | Therapy Services at | PT [address] | (Primary Dx) | | | | [facility] | [address] | | | | | [address] | [facility] [place] | | | | | Mailcode: [facility] | [address] | | | | | [facility] | | | | | | and Healing, 1st | | | | | | floor [place], [place] | | | | | | [address] | | | | | | [phone] | | | +--------+---------+ + + + [...] might be different fr om the original. [id number] KEVON WELCH Date of : 1940 Start of care: 07/24/11 Date of onset:07/22/11 Referring/Attending Practitioner: Misael Myers MD . Primary/Referral Diagnosis/ICD-9: Encounter Diagnoses Name Primary? Shoulder pain Yes Insurance: Payor: [employer] MEDICARE Plan: ODS MEDICARE Product Type: PPO Service period from: 08/24/11-11/22/11 Number visits used/authorized: 7 [facility] PHYSICAL THERAPY: Post-op SHOULDER PO week S/P Arthroscopic SAD, DCE, labral debridement Subjective: Pt reports that his shoulder pain is mostly resolved Has some residual biceps pain in the anterior shoulder, as well as pain at end range CELLULOID TRIMMER AL ROTATION States he has been doing [...] UE [facility] Pt still working on mid [...] as 24 hours in advance by calling [phone]. Our office is open 7am-6pm and there is a [employer] ssage line 24 hours a day. Any [...] in their status. LENA RAIN PT [facility] REHABILITATION SERVICES AND HAND THERAPY [address] Mailcode: [address] And [facility], [address] [place] [phone] documented in this e ncounter Plan of Treatment Not on filedocumented as of this encounter Procedures + +--------+ + + + | Procedure Name | Priori | Date/Time | Associated Diagnosis | Comments | | | ty | | | | + +--------+ + + + | [place] MANUAL THER | Routin | 11/03/2011 | Shoulder pain | | | TECH,1+REGIONS,EA 15 | e | 12:22 PM | | | | MIN | | PDT | | | + +--------+ + + + | [place] THERAPEUTIC | Routin | 11/03/2011 | Shoulder [...]
--- OUTSIDE RECORDS SUMMARY | ~2018-07-16 | XMS | Encounter Summary ---
Demographics + + + | Address | [address] | | | [place] [address] | + + + | Home Phone [...] [place] | | | | | [address] | | + + + + + Care Team Providers + +------+ + | Care Plastic Process Technician Name | Role | Phone | [...] | | | | | PHYSICAL | [place], [place] | [address] | | | | | THERAPY | [address] | for Health | | | | | REFERRAL | Phone: | and Healing, | | | | | | [phone] | 1st floor | | | | | | Fax: | [place], [place] | | | | | | [phone] | [address] | | | | | | | Phone: | | | | | | | [phone] | | | | | | | Fax: | | | | | | | [phone] | +--------+--------+ + + + + Encounter Details +--------+---------+ + + + | Date | Type | Department | Care Team | Description | +--------+---------+ + + + | 06/29/ | Office | [facility] | Philly Rain, | Shoulder pain | | 2011 | Visit | Therapy Services at | PT [address] | (Primary Dx) | | | | [facility] | Celestine Carmen | | | | | [address] | [place], [place] | | | | | Mailcode: CH3 | [address] | | | | | [facility] | | | | | | and Ned, 1st | | | | | | floor [place], [place] | | | | | | [address] | | | | | | [phone] | | | +--------+---------+ + + + [...] might be different fr om the original. [id number] KEVON WELCH Date of : 1940 Start of care: 06/30/2011 Date of onset:12/24/10 Referring/Attending Practitioner: Misael Myers MD . Primary/Referral Diagnosis/ICD-9: Encounter Diagnoses Name Primary? Shoulder pain Yes Insurance: Payor: ODS MEDICARE Plan: ODS MEDICARE Product Type: PPO Service period from: 06/30/2011 to: 09/28/11 Number visits used/authorized: 4 [facility] PHYSICAL THERAPY: Pre-op SHOULDER Subjective: Pt is [...] t 24 hours in advance by calling [phone]. Our office is open 7am-6pm and there is a [employer] ssage line 24 hours a day. Any [...] change in their status. PHILLY RAIN PT [facility] REHABILITATION SERVICES AND HAND THERAPY [address] Mailcode: [address] [facility], 1st Floor [facility] [address] documented in this e ncounter Plan of Treatment Not on filedocumented as of this encounter Procedures + +--------+ + + + | Procedure Name | Priori | Date/Time | Associated Diagnosis | Comments | | | ty | | | | + +--------+ + + + | [place] MANUAL THER | Routin | 06/30/2011 | Shoulder pain | | | TECH,1+REGIONS,EA 15 | e | 4:12 PM | | | | MIN | | PDT | | | + +--------+ + + + | [place] THERAPEUTIC | Routin | 06/30/2011 | Shoulder [...]
--- OUTSIDE RECORDS SUMMARY | ~2018-07-16 | XMS | Encounter Summary ---
Demographics + + + | Address | [address] | | | [place] [address] | + + + | Home Phone | | + + + | Preferred Language | Unknown | + + + | Marital Status | | + + + | Protestant Affiliation | NON | + + + | Race | White | + + + | Ethnic Group | Not or | + + + Author + + + | Author | [facility] | + + + | Organization | [facility] | + + + | Address | Unknown | + + + | Phone | Unavailable | + + + Support + + + + + | Name | Relationship | Address | Phone | + + + + + | Elizabeth Welch | ECON | [address] | | | | | [place] | | | | | [address] | | + + + + + Care Team Providers + +------+ + | Care Heel Coverer Name | Role | Phone | + +------+ + | Doyle Johnson MD | PCP | Unavailable | + +------+ + Encounter Details +--------+ + + + + | Date | Type | Department | Care Team | Description | +--------+ + + + + | 06/29/ | Anesthesia | Preoperative | Lida Houser, | | | 2011 | Event | [facility] at | ANP [address] | | | | | [facility] 4th Floor [address] | [address] | | | | | [address] | [place], [place] | | | | | Code: [address] | [address] | | | | | for Health and | [phone] | | | | | Healing,4th Floor | | | | | | [place], [place] | | | | | | [address] | | | | | | [phone] | | | +--------+ + + + + Anesthesia Record + + + + + | Procedure Name | Responsible | Anesthesia Start | Anesthesia Stop Time | | | Anesthesiologist | Time | | + + + + + | subachromial | | | | | decompression | | | | + + + + + + + | No events on file. | + + +------+ | Meds | +------+ + + + No medications | on file. | + + + + + | No agents on file. | + + + + | No blood administrations on file. | + + + + | No LDAs on file. | + + documented in this encounter Social History + +-------+ +--------+------+ | Tobacco [...]
--- OUTSIDE RECORDS SUMMARY | ~2018-07-16 | XMS | Encounter Summary ---
Demographics + + + | Address | [address] | | | [place] [address] | + + + | Home Phone | | + + + | Preferred Language | Unknown | + + + | Marital Status | | + + + | Presybeterian Affiliation | NON | + + + | Race | White | + + + | Ethnic Group | Not or | + + + Author + + + | Author | [facility] | + + + | Organization | [facility] | + + + | Address | Unknown | + + + | Phone | Unavailable | + + + Support + + + + + | Name | Relationship | Address | Phone | + + + + + | Elizabeth Welch | ECON | [address] | | | | | [place] | | | | | [address] | | + + + + + Care Team Providers + +------+ + | Care Reeling Machine Setup Operator Name | Role | Phone | [...] Therapy Services at | PT [address] [facility] | | | | | [facility] | [address]ales | | | | | [address] | [place], [place] | | | | | Mailcode: CH3P | [address] | | | | | [facility] | | | | | | and Healing, 1st | | | | | | floor [place], [place] | | | | | | [address] | | | | | | [phone] | | | +--------+ + + + [...]
--- OUTSIDE RECORDS SUMMARY | ~2018-07-16 | XMS | Encounter Summary ---
Demographics + + + | Address | [address] | | | [place] [address] | + + + | Home Phone | | + + + | Preferred Language | Unknown | + + + | Marital Status | | + + + | Latter-Day Affiliation | NON | + + + | Race | White | + + + | Ethnic Group | Not or | + + + Author + + + | Author | [facility] | + + + | Organization | [facility] | + + + | Address | Unknown | + + + | Phone | Unavailable | + + + Support + + + + + | Name | Relationship | Address | Phone | + + + + + | Elizabeth Welch | ECON | [address] | | | | | [place] | | | | | [address] | | + + + + + Care Team Providers + +------+ + | Care Hot Kettle Tender Name | Role | Phone | + [...] | | | | | PHYSICAL | [place], [place] | [address] | | | | | THERAPY | [address] | for Health | | | | | REFERRAL | Phone: | and Healing, | | | | | | [phone] | 1st floor | | | | | | Fax: | [place], [place] | | | | | | [phone] | [address] | | | | | | | Phone: | | | | | | | [phone] | | | | | | | Fax: | | | | | | | [phone] | +--------+--------+ + + + + Encounter Details +--------+---------+ + + + | Date | Type | Department | Care Team | Description | +--------+---------+ + + + | 07/23/ | Office | [facility] | Philly Rain, | Shoulder pain | | 2011 | Visit | Therapy Services at | PT [address] | (Primary Dx) | | | | [facility] | Celestine Carmen | | | | | [address] | [place], [place] | | | | | Mailcode: CH3 | [phone] | | | | | [facility] | | | | | | and Ned, 1st | | | | | | floor [place], [place] | | | | | | [address] | | | | | | [phone] | | | +--------+---------+ + + + [...] encounter Progress Notes Philly Rain, PT - 07/24/2011 3:03 PM PDTFormatting of this note might be different fr om the original. [id number] KEVON WELCH Date of : 1940 Start of care: 07/24/11 Date of onset:07/22/11 Referring/Attending Practitioner: Misael Myers MD . Primary/Referral Diagnosis/ICD-9: Encounter Diagnoses Name Primary? Shoulder pain Yes Insurance: Payor: [employer] MEDICARE Plan: [employer] MEDICARE Product Type: PPO Service period from: 07/24/11-08/23/11 Number visits used/authorized: 1 [facility] PHYSICAL THERAPY: Post-op SHOULDER POST OP DAY #2 S/P Arthroscopic SAD, DCE, labral debridement Subjective: Pt reports the pain catheter came out yesterday since it was leaking He was told to leave dressing in place until tomorrow so he does not want to remove it Pt reported some bleeding that the PA was aware of but it did stop fairly soon on day of perez rgery Pt is here with his today to go over post op instructions and PROM ex Pt's had a recent R CMC fusion so needs modifications on hand placement for PROM Pain 02/18 current History of Presenting Problem: Kevon Welch is [...] history of NELY (obstructive sleep apnea). He als o has no past medical history of Difficult intubation; MALIGNANT HYPERTHERMIA; PONV (postope rative nausea and vomiting); or Spinal headache. Past Surgical History: has past surgical history that includes lipoma exicison 2002; UPPP 2005; knee procedure 195; and colonoscopy-last 2009. MEDICATIONS: ibuprofen 200 mg Oral Tablet, Take 200 mg by mouth every six hours as needed. oxyCODONE, immediate release, 5 mg Oral Tablet, Take one to three every 3-6 hours as needed by mouth Previous treatment: physical therapy. 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 Decrease shoulder pain 2. Complete daily activities 3. Learn post op protocol OBJECTIVE: Observation: wearing basic sling correctly, dressing intact; ecchymosis noted in medial upp er arm/bicep; Bulky dressing intact, no strikethrough drainage noted except ant inf border o f tape-scant blood; Tape limiting abduction and flexion due to placement (I removed those ed ges anteriorly and posteriorly to allow ROM to 90 deg flexion with out skin pull); Redness o n neck from adhesive per patient Posture/alignment: Rounded shoulders, forward head Palpation: not assessed through dressing Swelling minimal in L hand compared to none in R Sensation intact to light touch L UE AROM C-spine WFL PROM: Some pain caused by tape FLEX 80* degrees ER: 30* IR to belly ABD to 45* THERAPEUTIC ACTIVITY x10 Education of post-op precautions. Education of Rehabilitation Timeline, including PROM/AAROM/AROM/Light strengthening/functio nal activity progression as saba. Education of icing 20 min 3x day. Education of postioning and support of of UE with correct usage with sling or pillows Pt ed on light cardiovascular exercise as tolerated with sling in place Pt ed to leave dressing in place and follow nurse's post op instructions; do not allow sutu res to get wet THERAPEUTIC EXERCISE x15 Treatment consisted of reviewing post operative home exercise program, written instruction reviewed and updated for recent surgery. Pt's instructed in and performed PROM for L shoulder ER in scaption with towel rolls and PROM flexion and abduction supine to 90 degree s with modification for her hands. Intervention Date* Ball squeezes 07/24/11 1 set of 10 reps, 3 x daily Wrist flexion/extension 07/24/11 1 set of 10 reps, 3 x daily Forearm supination/pronation 07/24/11 1 set of 10 reps, 3 x daily Pendulums-passive 07/24/11 Elbow flexion A/AAROM as tolerated 07/24/11 1 set of 10 reps, 3 x daily (on hold if doing bi ceps repair) Passive shoulder flexion supine with partner or univolved extremity assist 07/24/11 1 set 1 0 reps, 3 x daily Passive supine external rotation with cane assist 07/24/11 1 set 10 reps, 3 [...] see comments for details of modifications, deletions PROM in ABD and FLEX, ER performed supine with towel roll under arm x 5 min ea ASSESSMENT: Kevon presents with symptoms consistent with L shoulder arthroscopic SAD, DCE, and labral d ebridement. He is receptive and understands post-op precautions and exercises. Kevon requir es services that can be safely and effectively performed only by a qualified therapist to ad dress the following problems and achieve the following goals: Rehab Potential: Good Problem List: Decreased Shoulder ROM Decreased Shoulder Strength Decreased awareness of post op precautions Shoulder Pain GOALS, discussed with patient, due today: Compliant with post-op precautions. Demonstrate understanding and independence of acute post-op exercises. GOALS, Discussed with patient, due in 12 weeks: 1. Increase strength of ROTATOR CUFF/ER to 4/5; periscapular mm to 4+/5 2. Demonstrate understanding and independence HOME EXERCISE PROGRAM 3. Increase shoulder AROM to full and painfree 4. Normalize scapulo-humeral kinematics PLAN: Pt to f/u on 08/03 for progression to AAROM and AROM ex; also teach progression of HOME EXER CISE PROGRAM as he lives 4 hours away and can only return every couple of weeks for F/U Therapeutic exercise, Manual Therapy, Therapeutic Activity, Manual Therapy, Neuromuscular R e-Education, Gait Training, Modalities as needed, Pt. Education, HEP Read operative report (not available today) Per protocol. Reinforce precautions. Frequency/Duration: Await further post-op orders Treatment began: 1445 Treatment ended: 1555 Reviewed cancel/no show policy with patient. Pt voiced understanding. "At times we understand you must cancel. We request that all cancellations be made at [facility] 24 hours in advance by calling [phone]. Our office is open 7am-6pm and there is a [employer] ssage line 24 hours a day. Any [...] change in their status. PHILLY RAIN PT [facility] [address] Mailcode: [address] [facility], [address] [place] [phone] documented in this e ncounter Plan of Treatment + + +--------+ + + | Name | Type | Priori | Associated Diagnoses | Order Schedule | | | | ty | | | + + +--------+ + + | REHABILITATION | Procedures | Routin | Shoulder pain | Ordered: 07/24/2011 | | MEDICARE | | e | | | | CERTIFICATION | | | | | + + +--------+ + + documented as of this encounter Procedures + +--------+ + + + | Procedure Name | Priori | Date/Time | Associated Diagnosis | Comments | | | ty | | | | + +--------+ + + + | [facility] | Routin | 07/24/2011 | Shoulder pain | | | ACTIVITIES | e | 4:38 PM | | | | | | PDT | | | + +--------+ + + + | [facility] | Routin | 07/24/2011 | Shoulder pain | | | EXERCISES | e | 4:38 PM | | | | | | PDT | | | + +--------+ + + + | [facility] | Routin | 07/24/2011 | Shoulder pain | | | EVALUATION | e | 4:38 PM | | | | | | PDT | | | + +--------+ + + + documented in this encounter Visit Diagnoses + + | Diagnosis | + + | Shoulder pain - Primary Pain in joint, shoulder region | + + documented in this encounter
--- OUTSIDE RECORDS SUMMARY | ~2018-07-16 | XMS | Encounter Summary ---
Demographics + + + | Address | [address] | | | [place] [address] | + + + | Home Phone [...] + + + | Author | [facility] | + + + | Organization | [facility] | + + + | Address | Unknown | + + + | Phone | Unavailable | + + + Support + + + + + | Name | Relationship | Address | Phone | + + + + + | Elizabeth Welch | ECON | [address] | | | | | [place] | | | | | [address] | | + + + + + Care Team Providers + +------+ + | Care Executive Director Sheltered Workshop Name | Role | Phone | + [...] + + | 07/21/ | Telephone | WIMARILYN Sinclair | Maddie Luna, | Other (home pump- | | 2011 | | Pain Center at | ANESTHESIOLOGY TECH [address] | patient initiated) | | | | [facility] | [place], [place] | | | | | [address] | [address] | | | | | Mail Code: [facility] | [phone] | | | | | [facility] | | | | | | and | | | | | | Floor [place], [place] | | | | | | [address] | | | | | | [phone] | | | +--------+ + + + [...]
--- OUTSIDE RECORDS SUMMARY | ~2018-07-16 | XMS | Encounter Summary ---
Demographics + + + | Address | [address] | | | [place] [address] | + + + | Home Phone | | + + + | Preferred Language | Unknown | + + + | Marital Status | | + + + | Mormon Affiliation | NON | + + + | Race | White | + + + | Ethnic Group | Not or | + + + Author + + + | Author | [facility] | + + + | Organization | [facility] | + + + | Address | Unknown | + + + | Phone | Unavailable | + + + Support + + + + + | Name | Relationship | Address | Phone | + + + + + | Elizabeth Welch | ECON | [address] | | | | | [place] | | | | | [address] | | + + + + + Care Team Providers + +------+ + | Care Wanigan Clerk Name | Role | Phone | + [...] | | sprain | REFERRING | [address], | | | | | Osteoarthros | PROVIDER PER | [place] | | | | | [place], | [place] | [address] | | | | | unspecified | | Phone: | | | | | whether | | [phone] | | | | | generalized | | Fax: | | | | | or | | [phone] | | | | | localized, | [...] | | | | | | | SOUND CUTTER | | | | | | | FL SHLDR | | | | | | | ARTHROSCOP,P | | | | | | | ART | | | | | | | ACROMIOPLAS | | | | | | | W/CORACOACRO | | | | | | | M FL SHLDR | | | | | | | ARTHROSCOP,S | | | | | | | URG,DIS | | | | | | | CLAVICULECTO | | | | | | | MY [place] | | | | | | | [...] | | | Ave Mailcode: CH12A | [place], [place] | | | | | [facility] | [address] | | | | | and [facility] | [phone] | | | | | Floor [place], [place] | | | | | | [address] | | | | | | [phone] | | | +--------+---------+ + + + [...] Chairez PA - 09/04/2011 9:13 AM Candice Welch is a 70 y.o. male Status post [...]
--- OUTSIDE RECORDS SUMMARY | ~2018-07-16 | XMS | Encounter Summary ---
Demographics + + + | Address | [address] | | | [place] [address] | + + + | Home Phone | | + + + | Preferred Language | Unknown | + + + | Marital Status | | + + + | Orthodox Affiliation | NON | + + + | Race | White | + + + | Ethnic Group | Not or | + + + Author + + + | Author | [facility] | + + + | Organization | [facility] | + + + | Address | Unknown | + + + | Phone | Unavailable | + + + Support + + + + + | Name | Relationship | Address | Phone | + + + + + | Elizabeth Welch | ECON | [address] | | | | | [place] | | | | | [address] | | + + + + + Care Team Providers + +------+ + | Care Collection Analyst Name | Role | Phone | [...] | | | | | Procedures | [facility] | Mailcode: | | | | | PHYSICAL | Rd | [facility] | | | | | THERAPY | [place], [place] | for Health | | | | | REFERRAL | [address] | and Healing, | | | | | | | 1st floor | | | | | | | [place], [place] | | | | | | | [address] | | | | | | | Phone: | | | | | | | [phone] | | | | | | | Fax: | | | | | | | [phone] | +--------+--------+ + + + + Encounter Details +--------+---------+ + + + | Date | Type | Department | Care Team | Description | +--------+---------+ + + + | 08/11/ | Office | [place] [facility] | Rupesh, | Shoulder pain, right | | 2013 | Visit | Therapy Services at | Alise, PT [address] | (Primary Dx) | | | | [facility] | [address] | | | | | [address] | [place], [place] | | | | | Mailcode: [facility] | [address] | | | | | [facility] | | | | | | and Healing, 1st | | | | | | floor [place], [place] | | | | | | [address] | | | | | | [phone] | | | +--------+---------+ + + + [...] encounter Progress Notes Alise [place], PT - 08/11/2013 4:09 PM PDT [id number] KEVON WELCH Date of : 1940 Start of care: 05/19/2013 Date of onset: 03/21/2013 Referring/Attending Practitioner: Misael Myers Primary/Referral Diagnosis/ICD-9: Shoulder pain, right (primary encounter diagnosis) Insurance: Payor: [employer] MEDICARE Plan: [employer] MEDICARE Product Type: P PO Service period from: 05/19/2013 to - Number visits used/authorized: [facility] PHYSICAL THERAPY TREATMENT - ORTHO SUBJECTIVE: Current: Right shoulder continues to be about the same. Some activities seem to be more pa inful than others. May be overdoing or sleeping position. Pain with reaching arm across flaco dy - able to reach more some days than others. Wondering about heat and cold for shoulder. Tried increased resistance with bands at home, was painful the next day and rested for a co uple days. History of Presenting Problem: Kevon Welch is [...] Right 07/20/2013 Right 08/11/2013 Flexion 141 155 [id number]* [id number] Pre 125* Post 140 Abduction 146 150 [id number]* [id number] Pre 95* Post 132 ER at 90 [...] and insert ion Manual therapy, 35 minutes: CFM supraspinatus insertion Posterior GH mobilization, grade II Inferior GH mobilization, grade II AC joint mobilization, grade III Posterior and inferior SC mobilization, grade II Contract relax shoulder ER in neutral passive range of motion all planes Therapeutic exercise, 10 minutes: Table top shoulder flexion, 3 x 10 sec Table top shoulder abduction, 3 x 10 sec ER stretch at corner, 2 x 20 sec Home exercise program as of 08/11/2013 Sidelying shoulder ER with 2# Rows with green band Extension rows with green band IR series behind back Table top shoulder flexion Table top shoulder abduction ER stretch at corner Education on heat and ice ASSESSMENT: Kevon is a 72 year old male who presents with right shoulder pain for 4 months duration fol lowing carrying chair up flight of stairs. Pt with continued increase in pain with decreased shoulder range of motion from previous session. Pt with tenderness and inflammation of sup raspinatus insertion, leading to pain and limited range of motion. Pt with improved range o f motion with decreased pain following manual therapy. Pt with decreased posterior and infe rior GH mobility with pain. Pt with slow progress, likely due to infrequent PT visits. Bru ce requires services that can be safely and effectively performed only by a qualified therap ist to address the following problems and achieve the following goals: DISCHARGE FUNCTIONAL GOALS, discussed with emmy Lund in 6 weeks: Pt will demonstrate 160 deg shoulder flexion in order to reach high shelf Pt will report washing back with 0/10 pain Pt will be independent with home exercise program 5/7 days PLAN OF CARE: Focus on home exercise program as pt lives in [facility], [place] for posterior do minant shoulder strength Frequency/Duration: Follow up prn due to pt living in [facility], [place] Treatment began: 0407 pm Treatment ended: 0452 pm This note is to serve as the discharge summary if Kevon fails to attend further Physical Th erapy appointments or contact the therapist regarding any change in their status. Alise [place], PT [facility] HAND THERAPY [address] Mailcode: [place] [address] documented in this encounter Plan of Treatment Not on filedocumented as of this encounter Procedures + +--------+ + + + | Procedure Name | Priori | Date/Time | Associated Diagnosis | Comments | | | ty | | | | + +--------+ + + + | MT MANUAL THER | Routin | 08/11/2013 | Shoulder pain, | | | TECH,1+REGIONS,EA 15 | e | 5:16 PM | right | | | MIN | | PDT | | | + +--------+ + + + | [facility] THERAPEUTIC | Routin | 08/11/2013 | Shoulder pain, | | | EXERCISES | e | 5:16 PM | right | | | | | PDT | | | + +--------+ + + + documented in this encounter Visit Diagnoses + + | Diagnosis | + + | Shoulder pain, right - Primary Pain in joint, shoulder region | + + documented in this encounter
--- OUTSIDE RECORDS SUMMARY | ~2018-07-16 | XMS | Encounter Summary ---
Demographics + + + | Address | [address] | | | [place] [address] | + + + | Home Phone [...] [place] | | | | | [address] | | + + + + + Care Team Providers + +------+ + | Care Miller Kiln Dried Salt Name | Role | Phone | + [...] Therapy | Shoulder | MD Gordy | [address] | | | | | pain | [address] | [address] | | | | | Procedures | [address] | Mailcode: | | | | | PHYSICAL | Rd | [facility] | | | | | THERAPY | [place], [place] | for Health | | | | | REFERRAL | [address] | and Healing, | | | | | | | 1st floor | | | | | | | [place], [place] | | | | | | | [address] | | | | | | | Phone: | | | | | | | [phone] | | | | | | | Fax: | | | | | | | [phone] | +--------+--------+ + + + + Reason [...] | | | | | | [address] [place], | | | | | | | [place] | | | | | | | [address] | | | | | | | Phone: | | | | | | | [phone] | | | | | | | Fax: | | | | | | | [phone] | +--------+--------+ + + + + Encounter Details +--------+---------+ + + + | Date | Type | Department | Care Team | Description | +--------+---------+ + + + | 05/19/ | Office | Orthopaedics at | Misael Myers MD | Shoulder pain | | 2013 | Visit | [facility] [address] | [address] | (Primary Dx) | | | | Ave Mailcode: CH12A | [address] | | | | | [place] for [facility] | [place], [place] | | | | | and | [address] | | | | | Floor [place], [place] | [phone] | | | | | [address] | | | | | | [phone] | | | +--------+---------+ + + + [...]
--- OUTSIDE RECORDS SUMMARY | ~2018-07-16 | XMS | Encounter Summary ---
Demographics + + + | Address | [address] | | | [place] [address] | + + + | Home Phone | | + + + | Preferred Language | Unknown | + + + | Marital Status | | + + + | Yazdanism Affiliation | NON | + + + [...] [place] | | | | | [address] | | + + + + + Care Team Providers + +------+ + | Care Armored Car Guard Name | Role | Phone | + [...] pain | [address] | | | | | Procedures | [facility] | Mailcode: | | | | | PHYSICAL | Rd | [facility] | | | | | THERAPY | [place], [place] | for Health | | | | | REFERRAL | [address] | and Healing, | | | | | | | 1st floor | | | | | | | [place], [place] | | | | | | | [address] | | | | | | | Phone: | | | | | | | [phone] | | | | | | | Fax: | | | | | | | [phone] | +--------+--------+ + + + + Encounter Details +--------+---------+ + + + | Date | Type | Department | Care Team | Description | +--------+---------+ + + + | 07/20/ | Office | [place] [facility] | Rupesh, | Shoulder pain | | 2013 | Visit | Therapy Services at | Alise, PT [address] | (Primary Dx) | | | | [facility] [place]Note 2] | [address] | | | | | [address] | [place], [place] | | | | | Mailcode: [facility] | [address] | | | | | [facility] | | | | | | and Ned, 1st | | | | | | floor [place], [place] | | | | | | [address] | | | | | | [phone] | | | +--------+---------+ + + + [...] encounter Progress Notes Alise Washington, PT - 07/20/2013 2:33 PM PDT [id number] KEVON WELCH Date of : 1940 Start of care: 05/19/2013 Date of onset: 03/21/2013 Referring/Attending Practitioner: Misael Myers Primary/Referral Diagnosis/ICD-9: Shoulder pain (primary encounter diagnosis) Insurance: Payor: [employer] ODS MEDICARE Plan: Tagstr MEDICARE Product Type: P PO Service period from: 05/19/2013 to - Number visits used/authorized: 3- [facility] PHYSICAL THERAPY TREATMENT - ORTHO SUBJECTIVE: Current: Right shoulder is so-so. Has been traveling in [place], [place], and [place]. Di fficulty lifting suitcase to overhead bin and pulling through city. Stopped taking ibuprofe n and had spontaneous bruising - will call PCP once home in [facility]. Noticed minimal silva ge in shoulder motion and has continued sharp pain with active range of motion. History of Presenting Problem: Kevon Welch is [...] MOTION Shoulder AROM Right Left Right 07/20/2013 Flexion 141 155 [id number]* [id number] Abduction 146 150 [id number]* [id number] ER at 90 deg abd 90 (60 at neutral) 90 79 no change IR at 90 deg abd 24 75 *indicates pain with movement Pre and post relative to treatment. STRENGTH Shoulder strength Right Left flexion 4-*/5 4+/5 abduction 4-*/5 4+/5 ER 4-*/5 4+/5 IR 4-*/5 4+/5 Rhomboids Middle Trapezius Lower Trapezius Palpation: Tenderness with palpation of infraspinatus insertion, supraspinatus muscle belly and insert ion Manual therapy, 40 minutes: CFM long head of the biceps Posterior GH mobilization, grade III Inferior GH mobilization, grade III Inferior lateral GH mobilization at 90 deg flexion, grade III AC joint mobilization at 90-90, grade III Scapular mobility - wnl in all planes passive range of motion all planes Therapeutic exercise, 5 minutes: Home exercise program as of 06/23/2013 Sidelying shoulder ER with 2# Prone horizontal abduction Rows with green band Extension rows with green band IR series behind back Education on heat and ice ASSESSMENT: Kevon is a 72 year old male who presents with right shoulder pain for 2 months duration fol lowing carrying chair up flight of stairs. Pt with increased anterior shoulder pain followi ng travel to [place]. Pt with increased tenderness to AC joint line and long head of the bic eps. Pt with decreased range of motion from prior to travel, though improves with manual th erapy. Pt has not completed home exercise program while traveling, verbally reviewed home e xercise program and rationale with pt, pt to continue with current home exercise program and improved compliance. Pts impairments continue to limit him with ADLs and hobbies. Kevon rehman equires services that can be safely and effectively [...] home exercise program as pt lives in [place], [place] for posterior do minant shoulder strength Frequency/Duration: Follow up prn due to pt living in [place], [place] and traveling to [facility] for 4 weeks Treatment began: 0230 pm Treatment ended: 0315 pm This note is to serve as the discharge summary if Kevon fails to attend further Physical Th erapy appointments or contact the therapist regarding any change in their status. Alise Washington, PT [facility]ER[facility] [address] Mailcode: [place] [address] documented in this encounter Plan of Treatment Not on filedocumented as of this encounter Procedures + +--------+ + + + | Procedure Name | Priori | Date/Time | Associated Diagnosis | Comments | | | ty | | | | + +--------+ + + + | [place] MANUAL THER | Routin | 07/20/2013 | Shoulder pain | | | TECH,1+REGIONS,EA 15 | e | 3:37 PM | | | | MIN | | PDT | | | + +--------+ + + + documented in this encounter Visit Diagnoses + + | Diagnosis | + + | Shoulder pain - Primary Pain in joint, shoulder region | + + documented in this encounter
--- OUTSIDE RECORDS SUMMARY | ~2018-07-16 | XMS | Encounter Summary ---
Demographics + + + | Address | [address] | | | [place] [address] | + + + | Home Phone | | + + + | Preferred Language | Unknown | + + + | Marital Status | | + + + | Orthodoxy Affiliation | NON | + + + | Race | White | + + + | Ethnic Group | Not or | + + + Author + + + | Author | [facility] | + + + | Organization | [facility] | + + + | Address | Unknown | + + + | Phone | Unavailable | + + + Support + + + + + | Name | Relationship | Address | Phone | + + + + + | Elizabeth Welch | ECON | [address] | | | | | [place] | | | | | [address] | | + + + + + Care Team Providers + +------+ + | Care Inpatient Services Director Name | Role | Phone [...] Therapy Services at | PT [address] | | | | | [facility] | [address] | | | | | [address] | [place], [place] | | | | | Mailcode: CH3P | [address] | | | | | [facility] | | | | | | and Healing, 1st | | | | | | floor [place], [place] | | | | | | [address] | | | | | | [phone] | | | +--------+ + + + [...]
--- OUTSIDE RECORDS SUMMARY | ~2018-07-16 | XMS | Encounter Summary ---
Demographics + + + | Address | [address] | | | [place] [address] | + + + | Home Phone | | + + + | Preferred Language | Unknown | + + + | Marital Status | | + + + | Gnosticism Affiliation | NON | + + + | Race | White | + + + | Ethnic Group | Not or | + + + Author + + + | Author | [facility] | + + + | Organization | [facility] | + + + | Address | Unknown | + + + | Phone | Unavailable | + + + Support + + + + + | Name | Relationship | Address | Phone | + + + + + | Elizabeth Welch | ECON | [address] | | | | | [place] | | | | | [address] | | + + + + + Care Team Providers + +------+ + | Care Aircraft Maintenance Manager Name | Role | Phone | [...] Therapy | Shoulder | MD [place] | [address] | | | | | pain | [address] | [address] | | | | | Procedures | [address] | Mailcode: | | | | | PHYSICAL | Rd | [facility] | | | | | THERAPY | [place], [place] | for Health | | | | | REFERRAL | [address] | and Healing, | | | | | | | 1st floor | | | | | | | [place], [place] | | | | | | | [address] | | | | | | | Phone: | | | | | | | [phone] | | | | | | | Fax: | | | | | | | [phone] | +--------+--------+ + + + + Reason [...] | | | | | | Dejan [place], | | | | | | | [place] | | | | | | | [address] | | | | | | | Phone: | | | | | | | [phone] | | | | | | | Fax: | | | | | | | [phone] | +--------+--------+ + + + + Encounter Details +--------+---------+ + + + | Date | Type | Department | Care Team | Description | +--------+---------+ + + + | 05/19/ | Office | Orthopaedics at | Misael Myers MD | Shoulder pain | | 2013 | Visit | [facility] [address] | [address] | (Primary Dx) | | | | Ave Mailcode: [facility] | [address] | | | | | [place] [facility] | [place], [place] | | | | | and | [address] | | | | | Floor [place], [place] | [phone] | | | | | [address] | | | | | | [phone] | | | +--------+---------+ + + + [...]
--- OUTSIDE RECORDS SUMMARY | ~2018-07-16 | XMS | Encounter Summary ---
Demographics + + + | Address | [address] | | | [place] [address] | + + + | Home Phone | | + + + | Preferred Language | Unknown | + + + | Marital Status | | + + + | Faith Affiliation | NON | + + + | Race | White | + + + | Ethnic Group | Not or | + + + Author + + + | Author | [facility] | + + + | Organization | [facility] | + + + | Address | Unknown | + + + | Phone | Unavailable | + + + Support + + + + + | Name | Relationship | Address | Phone | + + + + + | Elizabeth Welch | ECON | [address] | | | | | [place] | | | | | [address] | | + + + + + Care Team Providers + +------+ + | Care Scientific Director Name | Role | Phone | [...] | | | | PHYSICAL | [facility] [place] | [facility] | | | | | THERAPY | [address] | for Health | | | | | REFERRAL | Phone: | and Healing, | | | | | | [phone] | 1st floor | | | | | | Fax: | [place], [place] | | | | | | [phone] | [address] | | | | | | | Phone: | | | | | | | [phone] | | | | | | | Fax: | | | | | | | [phone] | +--------+--------+ + + + + Encounter Details +--------+---------+ + + + | Date | Type | Department | Care Team | Description | +--------+---------+ + + + | 09/04/ | Office | [facility] Physical | Lena Rain, | Shoulder pain | | 2011 | Visit | Therapy Services at | PT [address] | (Primary Dx) | | | | [facility] | [address] | | | | | [address] | [place], [place] | | | | | Mailcode: [facility] | [address] | | | | | [facility] | | | | | | and Healing, 1st | | | | | | floor [facility] [place] | | | | | | [address] | | | | | | [phone] | | | +--------+---------+ + + + [...] might be different fr om the original. [id number] KEVON WELCH Date of : 1940 Start of care: 07/24/11 Date of onset:07/22/11 Referring/Attending Practitioner: Misael Myers MD . Primary/Referral Diagnosis/ICD-9: Encounter Diagnoses Name Primary? Shoulder pain Yes Insurance: Payor: ODS MEDICARE Plan: ODS MEDICARE Product Type: PPO Service period from: 08/24/11-10/23/11 Number visits used/authorized: 6 [facility] PHYSICAL TH[facility]AP[facility]: Post-op SHOULDER PO week 6 [...] request that all cancellations be [facility] 24 hours in advance by calling [phone]. Our office is open 7am-6pm and there is a [place] line 24 hours a day. Any appointment [...] change in their status. LENA RAIN PT [facility] [address] Mailcode: [address] [address] documented in this e ncounter Plan of Treatment Not on filedocumented as of this encounter Procedures + +--------+ + + + | Procedure Name | Priori | Date/Time | Associated Diagnosis | Comments | | | ty | | | | + +--------+ + + + | [place] MANUAL THER | Routin | 09/08/2011 | Shoulder pain | | | TECH,1+GERHARD,EA 15 | e | 10:41 AM | | | | MIN | | PDT | | | + +--------+ + + + | MT THERAPEUTIC | Routin | 09/08/2011 | Shoulder [...]
--- OUTSIDE RECORDS SUMMARY | ~2018-07-16 | XMS | Encounter Summary ---
Demographics + + + | Address | [address] | | | [place] [address] | + + + | Home Phone | | + + + | Preferred Language | Unknown | + + + | Marital Status | | + + + | Jehovah'S Witness Affiliation | NON | + + + | Race | White | + + + | Ethnic Group | Not or | + + + Author + + + | Author | [facility] | + + + | Organization | [facility] | + + + | Address | Unknown | + + + | Phone | Unavailable | + + + Support + + + + + | Name | Relationship | Address | Phone | + + + + + | Elizabeth Welch | ECON | [address] | | | | | [place] | | | | | [address] | | + + + + + Care Team Providers + +------+ + | Care Traffic Control Specialist Name | Role | Phone | + +------+ + | Doyle Johnson MD | PCP | Unavailable | + +------+ + Encounter Details +--------+ + + + + | Date | Type | Department | Care Team | Description | +--------+ + + + + | 07/21/ | Telephone | Orthopaedics at | Misael Myers MD | | | 2011 | | [facility] [address] | [address] [facility] | | | | | [place] Mailcode: [facility] | [address] | | | | | [place] for [facility] | [place], [place] | | | | | and | [address] | | | | | Floor [place], [place] | [phone] | | | | | [address] | | | | | | [phone] | | | +--------+ + + + [...]
--- OUTSIDE RECORDS SUMMARY | ~2018-07-16 | XMS | Encounter Summary ---
Demographics + + + | Address | [address] | | | [place] [address] | + + + | Home Phone [...] [address] | | | | | [place] | | | | | [address] | | + + + + + Care Team Providers + +------+ + | Care Pesticide Control Inspector Name | Role | Phone | + [...] | | | | PHYSICAL | 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
--- OUTSIDE RECORDS SUMMARY | ~2018-07-16 | XMS | Clinical Summary ---
Demographics + + + | Address | [address] | | | [place] [address] | + + + | Home Phone | | + + + | Preferred Language | Unknown | + + + | Marital Status | | + + + | Druze Affiliation | Unknown | + + + | Race | Unknown | + + + | Ethnic Group | Unknown | + + + Author + + + | Author | [facility] | + + + | Organization | [employer] [facility] | + + + | Address | Unknown | + + + | Phone | Unavailable | + + + Support + + +---------+ + | Name | Relationship | Address | Phone | + + +---------+ + | Elizabeth Katz | ECON | Unknown | | + + +---------+ + | Detailed,Message | ECON | Unknown | | + + +---------+ + Care Team Providers + +------+ + | Care Poultry Service Technician Name | Role | Phone | + +------+ + | Doyle Johnson MD | PP | Unavailable | + +------+ + Allergies No Known Allergies Current Medications + + +-------+---------+------+------+-------+ | Prescription | Sig. | Disp. | Refills | Star | End | Statu | | | | | | t | Date | s | | | | | | Date | | | + + +-------+---------+------+------+-------+ | aspirin 81 MG | Take 81 mg by mouth | | | | | Activ | | tablet | every other day. | | | | | e | + + +-------+---------+------+------+-------+ Active Problems + + + | Problem | Noted Date | + + + | Dizziness | 08/17/2014 | + + + + + | Last Assessment & Plan: Three events of dizzy spells sudden | | onset in last 5 weeksLast event while driving was longest | | 10minH/o OSAWill do holter monitoring to evaluate for any | | arrhythmiasHe has low baseline heart rate for many years always | | in 50sWill do Reg EST to evaluate for chronotrophic response to | | exercise, screen for CAD2D echo to evaluate LV funciton, WMA, | | valvesCarotid dopplersF/u after tests.Discussed diet, exercise, | | lifestyle changes, fall precautions. | |F/u after tests. | |Discussed diet, exercise, lifestyle changes, fall precautions. | + + + +---+ | Bradycardia | | + +---+ + + | Last Assessment & Plan: Three events of dizzy spells sudden | | onset in July 2014Last event while driving was longest 10minNo | | symptoms since thenH/o OSAHolter monitoring - no significant | | arrhythmias- but AVG HR is only 50 with highest HR of 77He has | | low baseline heart rate for many years always in 50sReg EST to | | evaluate stopped test 6:58sec for fatigue- he felt inclination | | was difficult and flet he could have tolerated higher level of | | exercise if inclination is lowered a bit- reached only 68% of | | target HR 102.2D echo normal LV functionCarotid dopplers- no | | significant diseaseDiscussed diet, exercise, lifestyle changes, | | fall precautions.Discussed with patient about normal HR | | variation- chronotropic incompetence- not sure if this is the | | reason for his dizzy spells as he is known to have low heart rate | | for many years and he frequently hiks and does exercises in gym | | regularly- I expressed my concern to him if the event he had is a | | TIA ( he told be that he was very upset at that time and thinks | | his BP is elevated) his symptom was more like loosing balance, | | vertigo than just dizziness- I discussed the most possible | | reasons a person could have TIA- and further monitoring with a 30 | | day event monitoring or implantable loop recorder can be | | options- he said he will think about it- I advised him to | | continue to take ASAAlso discussed about role of PPM in patients | | with chronotropic incompetence- but he feel it is not needed at | | this time as he has no symptoms and he is known having low HR for | | many years.He want to repeat the treadmill stress test to | | evaluate his chronotropic competence.Continue ASALDL- 113, HDL- | | 49.4Will re-evaluate after reg est. | + + Family History + + +------+ + | Medical History | Relation | Name | Comments | + + +------+ + | Heart failure | Mother | | | + + +------+ + + +------+ + + | Relation | Name | Status | Comments | + +------+ + + | Father | | Alive | | + +------+ + + | Mother | | | | | | | (Age | | | | | 95) | | + +------+ + + Social History + +-------+ +--------+------+ [...] + +---------+ + | Alcohol Use | Drinks/We | oz/Week | Comments | | | ek | | | + + +---------+ + | Yes | 0 | 0.0 | Moderate | | | Standard | | | | | drinks or | | | | | | | | | | equivalen | | | | | t | | | + + +---------+ + + + + | Sex Assigned at | Date Recorded | | | | + + + | Not on file | | + + + Last Filed Vital Signs + + + + | Vital Sign | Reading | Time Taken | + + + + | Blood Pressure | 118/64 | 10/12/2014 10:14 AM PDT | + + + + | Pulse | 50 | 10/12/2014 10:14 AM PDT | + + + + | Temperature | - | - | + + + + | Respiratory Rate | 18 | 10/12/2014 10:14 AM PDT | + + + + | Oxygen Saturation | 97% | 10/12/2014 10:14 AM PDT | + + + + | Inhaled Oxygen | - | - | | Concentration | | | + + + + | Weight | 72.1 kg (159 lb) | 10/12/2014 10:14 AM PDT | + + + + | Height | 172.7 cm (5' 8") | 08/17/2014 3:33 PM PDT | + + + + | Body Mass Index | 24.18 | 10/12/2014 10:14 AM PDT | + + + + Plan of Treatment + + + + + | Health Maintenance | Due Date | Last Done | Comments | + + + + + | Vaccine: | | | | | Dtap/Tdap/Td (1 - | 1 | | | | Tdap) | | | | + + + + + | Vaccine: Zoster (1 | | | | | of 2) | 2 | | | + + + + + | Vaccine: | | | | | Pneumococcal 65+ | 7 | | | | Low/Medium Risk (1 | | | | | of 2 - PCV13) | | | | + + + + + | Vaccine: Influenza | | | | | (Season Ended) | 9 | | | + + + + + Results Not on filefrom Last 3 Months Insurance + +--------+ +--------+-------+---------+ | Payer | Benefi | Subscriber | Type | Phone | Address | | | t Plan | ID | | | | | | / | | | | | | | Group | | | | | + +--------+ +--------+-------+---------+ | [place] - GENERIC | [place]-GEN | [id number] | Medica | | | | | [place] | | re | | | + +--------+ +--------+-------+---------+ + +--------+ +--------+ + + | Guarantor Name | Accoun | Relation to | Date | Phone | Billing Address | | | t Type | Patient | of | | | | | | | | | | + +--------+ +--------+ + + | KEVON KATZ | Person | Self [birth year] | Home: | [address] | | | al/Fam | | 1941 | [phone] | [place] | | | lyla | | | [phone] | [address] | + +--------+ +--------+ + +
--- OUTSIDE RECORDS SUMMARY | ~2018-07-16 | XMS | Encounter Summary ---
Demographics + + + | Address | [address] | | | [place] [address] | + + + | Home Phone | | + + + | Preferred Language | Unknown | + + + | Marital Status | | + + + | Bahai Affiliation | NON | + + + | Race | White | + + + | Ethnic Group | Not or | + + + Author + + + | Author | [facility] | + + + | Organization | [facility] | + + + | Address | Unknown | + + + | Phone | Unavailable | + + + Support + + + + + | Name | Relationship | Address | Phone | + + + + + | Elizabeth Welch | ECON | [address] | | | | | [place] | | | | | [address] | | + + + + + Care Team Providers + +------+ + | Care Manager Business Information Name | Role | Phone | + [...] | | | | | THERAPY | [facility] [place] | for Health | | | | | REFERRAL | [address] | and Healing, | | | | | | Phone: | 1st floor | | | | | | [phone] | [place], [place] | | | | | | Fax: | [address] | | | | | | [phone] | Phone: | | | | | | | [phone] | | | | | | | Fax: | | | | | | | [phone] | +--------+--------+ + + + + Encounter Details +--------+---------+ + + + | Date | Type | Department | Care Team | Description | +--------+---------+ + + + | 10/15/ | Office | [facility] | Philly Rain, | Low back pain; | | 2011 | Visit | Therapy Services at | PT [address] | Lumbar | | | | [facility] | [facility] [address] | radiculopathy; | | | | [address] | [place], [place] | Herniated lumbar | | | | Mailcode: [facility] | [phone] | intervertebral disc; | | | | [place] [facility] | | Degeneration of | | | | and Healing, 1st | | lumbar | | | | floor [place], [place] | | intervertebral disc | | | | [address] | | | | | | [phone] | | | +--------+---------+ + + + [...] encounter Progress Notes Philly Rain, PT - 10/16/2011 9:33 AM PDTFormatting of this note might be different fr om the original. [id number] KEVON WELCH Date of : 1940 Start of care: 10/09/2011 Date of onset: 09/10/11 Referring/Attending Practitioner: Alcira Bocanegra PA . Primary/Referral Diagnosis/ICD-9: 722.10H Herniated lumbar intervertebral disc Insurance: Payor: ODS MEDICARE Plan: ODS MEDICARE Product Type: PPO Service period from: 10/09/2011 to: 11/08/11 Number visits used/authorized: 3/ Neurologist: Dr. Rafal Benites [facility] [address] [place] [address] (Office) [facility] PHYSICAL THERAPY SUBJECTIVE Age: 71 y.o. Sex: male Chief complaint: Today's report: Pt notes that is better today than he has been since this past Thursday when he had an exac erbation On Thursday he overdid it with prolonged standing (pt was washing grapes at the countertop for several hours) States he had difficulty sleeping the first 3-4 nights, slept without waking last night He is alternating between sleeping on the L and R sides and on his back, no issues Long drive in was not a problem, in fact his back felt better by the end of the drive than it did at the start He is not taking anything for inflammation since he got a rash from the naprosyn except for occasional ibuprofen or tylenol He has a F/U appt today with Katty for his L shoulder History of Presenting Problems: Kevon Welch is a 71 y.o. male with c/o LBP that began about a month ago. 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 Mild foot drop on R Can walk with ankle/toes in DF on R with decreased balance and ROM on R Seated STRAIGHT LEG RAISE -45 degrees on R Supine STRAIGHT LEG RAISE -45 degrees on R Palpation: R LE negative along course of sciatic nerve until the calf-exquisitely tender "l emmanuel a sore muscle" here, no change with DF of ankle [place] Neuro Screen Updated 10/16/11 Segmental Strength Test Right Left Impact Test L1-3 hip flexion na na L3 knee Extension 5 5 L4-5 hip abduction 4 5 L4 Ankle DF 4- 5 S1 Calf Raises 5 5 S1 Hamstrings 5 5 THERAPEUTIC EXERCISE x20 min Home exercise program: Intervention Date* Comments Compliance 10/10/2011 Predicted: good Seated Sciatic nerve glides: Seated ankle DF/PF:10x Seated HS glides:10x Seated Chin tucks/Head nods:10x 10/10/2011 Cat and camel 10/10/2011 sidelying hip abduction 10/10/2011 Supine figure 4 and piriformis stretch 10/10/2011 * indicates date intervention started. see comments for details of compliance, modification s, deletions Reviewed and pt performed HOME EXERCISE PROGRAM as noted above States there is some fatigue with SL hip ABD; cues given to maintain lumbopelvic stability THERAPEUTIC ACTIVITY x25 min Discussed proper sitting and sleeping postures, using pillow support as needed. Log roll w ith in/out of bed. Avoiding bending, lifting, twisting. Also discussed these compensations as being temporary until sxs resolve. Discussed that given the nature of his injury, it wo uld take time for his body to absorb the disc material. He will need to maintain precaution s and rely not only on pain to be his guide but also on biomechanical principles to avoid re injury. We discussed need for frequent change of position while seated, as well as the bene fit of lying supine with knees supported to relieve LB pressure and allow discs to imbibe. Pt expressed understanding of this as well as concept of nerve irritation causing the pain d own the back of his leg. ASSESSMENT: Pt tolerated RX well today Symptoms slowly resolving though pt has improvement with pain report Symptoms with sciatic nerve stretch are irritable within small ranges of motion; hip abduct ion and ankle DF still significantly weaker on R Pt presents with signs and symptoms consistent with HNP at L3-L4 with sequestrated piece on L4 nerve root per pt report (MRI findings per pt) with weakness in the L4-5 myotome (ankle DF and hip abd). Pt demonstrates decreased balance and decreased functional lumbar ROM as w ell. Pt would benefit form continued PT R LE negative along course of sciatic nerve until the calf-exquisitely tender "like a sore muscle" here, no change with DF of ankle; very low index of suspicion for DVT, likely due to abnormal gait from weak DF of R ankle Kevon's Goals: decrease pain in R LE [...] lton Duration in months: 1-2months Treatment began: 929 Treatment ended: 1014 This note is to serve as the discharge summary if Kevon fails to attend further Physical Th erapy appointments or contact the therapist regarding any change in their status. PHILLY RAIN PT [facility] THERAPY [address] Mailcode: [address] [facility], [address] [place] [phone] documented in this e ncounter Plan of Treatment Not on filedocumented as of this encounter Procedures + +--------+ + + + | Procedure Name | Priori | Date/Time | Associated Diagnosis | Comments | | | ty | | | | + +--------+ + + + | NV THERAPEUTIC | Routin | 10/16/2011 | Low back pain | | | ACTIVITIES | e | 12:27 PM | Lumbar radiculopathy | | | | | PDT | Herniated lumbar | | | | | | intervertebral disc | | | | | | Degeneration of | | | | | | lumbar | | | | | | intervertebral disc | | + +--------+ + + + | NV THERAPEUTIC | Routin | 10/16/2011 | Low back pain | | | EXERCISES | e | 12:27 PM | Lumbar radiculopathy | | | | | PDT | Herniated lumbar | | | | [...]
--- OUTSIDE RECORDS SUMMARY | ~2018-07-16 | XMS | Encounter Summary ---
Demographics + + + | Address | [address] | | | [place] [address] | + + + | Home Phone | | + + + | Preferred Language | Unknown | + + + | Marital Status | | + + + | Methodist Affiliation | NON | + + + | Race | White | + + + | Ethnic Group | Not or | + + + Author + + + | Author | [facility] | + + + | Organization | [facility] | + + + | Address | Unknown | + + + | Phone | Unavailable | + + + Support + + + + + | Name | Relationship | Address | Phone | + + + + + | Elizabeth Welch | ECON | [address] | | | | | [place] | | | | | [address] | | + + + + + Care Team Providers + +------+ + | Care Kitchen Clerk Name | Role | Phone | [...] | | | | | Procedures | [facility] | Mailcode: | | | | | PHYSICAL | Rd | [facility] | | | | | THERAPY | [place], [place] | for Health | | | | | REFERRAL | [address] | and Healing, | | | | | | | 1st floor | | | | | | | [place], [place] | | | | | | | [address] | | | | | | | Phone: | | | | | | | [phone] | | | | | | | Fax: | | | | | | | [phone] | +--------+--------+ + + + + Encounter Details +--------+---------+ + + + | Date | Type | Department | Care Team | Description | +--------+---------+ + + + | 05/19/ | Office | [facility] | Rupesh, | Shoulder pain | | 2013 | Visit | Therapy Services at | Alise, PT [address] | (Primary Dx) | | | | [facility] | [address] | | | | | [address] | [place], [place] | | | | | Mailcode: [facility] | [address] | | | | | [facility] | | | | | | and Ned, 1st | | | | | | floor [place], [place] | | | | | | [address] | | | | | | [phone] | | | +--------+---------+ + + + [...] encounter Progress Notes Alise Washington, PT - 05/19/2013 12:23 PM PDT [id number] KEVON WELCH Date of : 1940 Start of care: 05/19/2013 Date of onset: 03/21/2013 Referring/Attending Practitioner: Misael Myers Primary/Referral Diagnosis/ICD-9: Shoulder pain (primary encounter diagnosis) Insurance: Payor: [facility] ODS MEDICARE Plan: [employer] MEDICARE Product Type: P PO Service period from: 05/19/2013 to - Number visits used/authorized: [facility] PHYSICAL THERAPY EVALUATION- ORTHO SUBJECTIVE: History of Presenting Problem: Kevon Welch [...] half. Pt is very right wisam d. Pain level (0-10): Patient reports a pain level of 0/10 currently. Pain location: Posterior GH joint, can ache in anterior chest with raising arm overhead Twenty four hour pain pattern: worse towards end of day, not a big change Highest pain level in the past week: 6/10 with raising tail gate of car Pain is increased with the following: ER or IR shoulder, reaching behind back, using comput er mouse and putting weight though right elbow Pain is decreased with the following: hot shower, ibuprofen Current Functional limitations: modifies ADLs and IADLs, uses left arm more Prior Level of Function: no limitations Cervical screen questions: Cervical pain: no Radicular symptoms into the upper extremity: positional with laying on side, not new with i njury 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 He also has no past medical history of Difficult intubation, MALIGNANT HYPERTHERMIA, PONV (postoperative na usea and vomiting), or Spinal headache. Surgical Hx: Kevon has past surgical history that includes lipoma exicison 2002; UPPP 2005 ; knee procedure 1958; and colonoscopy-last 2009. Meds: No current outpatient prescriptions on file. Precaution/special problems: none Equipment at home: bands Gym membership: none Requests family members or friends involved with rehabilitation therapy: no Anxieties or concerns about therapy: no Kevon's Goals: 1. Return to full use of arm 2. Learn home exercise program OBJECTIVE: Vitals: There were no vitals taken for this visit. Posture/alignment/observation: rounded shoulders, mild inferior angle scapular winging RANGE OF MOTION Shoulder AROM Right Left Flexion 141 155 Abduction 146 150 ER at 90 deg abd 90 (60 at neutral) 90 IR at 90 deg abd 24 75 *indicates pain with movement STRENGTH Shoulder strength Right Left flexion 4-*/5 4+/5 abduction 4-*/5 4+/5 ER 4-*/5 4+/5 IR 4-*/5 4+/5 Rhomboids Middle Trapezius Lower Trapezius Elbow strength Right Left flexion 5/5 5/5 extension 5/5 5/5 Neurological Screen No c/o distal symptoms, no symptom reproduction with range of motion Special tests: Right Left Comments Neers + - Telles Julio + - Cross body adduction Speeds Empty can + - Drop arm - - External rotation lag sign Internal rotation lag sign Apprehension Apprehension reduction AC compression Clunk O'Briens + + Joint mobility: Glenohumeral: Guarding Palpation: Tenderness with palpation of infraspinatus insertion, supraspinatus muscle belly and insert ion Treatment consisted of teaching Kevon a home exercise program, written instruction was give n Sidelying shoulder ER with 2# Prone horizontal abduction IR behind back with red band IR stretch with towel Rows with green band Extension rows with green band Education on heat and ice ASSESSMENT: Rehab Potential: Good, if Kevon carries through with home exercise program. Kevon is a 72 year old male who presents with right shoulder pain for 2 months duration fol lowing carrying chair up flight of stairs. Pt presents with decreased range of motion, pain with ADLs, decreased strength due to pain, positive impingement signs, and no current home exercise program. Pts signs and symptoms are consistent with supraspinatus strain. Kevon r equires services that can be safely and effectively performed only by a qualified therapist to address the following problems and achieve the following goals: DISCHARGE FUNCTIONAL GOALS, discussed with Kevon due in 6 weeks: Pt will demonstrate 160 deg shoulder flexion in order to reach high shelf Pt will report washing back with 0/10 pain Pt will be independent with home exercise program 5/7 days PLAN OF CARE: Focus on home exercise program as pt lives in [facility], [place] for posterior do minant shoulder strength Frequency/Duration: Follow up prn due to pt living in [facility], [place] Treatment began: 1220 Treatment ended: 1300 This note is to serve as the discharge summary if Kevon fails to attend further Physical Th erapy appointments or contact the therapist regarding any change in their status. Alise Washington, Pt [facility] THER[facility] [address] Mailcode: [address] [phone] documented in this encounter Plan of Treatment Not on filedocumented as of this encounter Procedures + +--------+ + + + | Procedure Name | Priori | Date/Time | Associated Diagnosis | Comments | | | ty | | | | + +--------+ + + + | ME THERAPEUTIC | Routin | 05/19/2013 | Shoulder pain | | | EXERCISES | e | 3:30 PM | | | | | | PDT | | | + +--------+ + + + | ME PHYS THERAPY | Routin | 05/19/2013 | Shoulder pain | | | EVALUATION | e | 3:30 PM | | | | | | PDT | | | + +--------+ + + + documented in this encounter Visit Diagnoses + + | Diagnosis | + + | Shoulder pain - Primary Pain in joint, shoulder region | + + documented in this encounter
--- OUTSIDE RECORDS SUMMARY | ~2018-07-16 | XMS | Encounter Summary ---
Demographics + + + | Address | [address] | | | [place] [address] | + + + | Home Phone [...] [place] | | | | | [address] | | + + + + + Care Team Providers + +------+ + | Care Nurse Practitioner Per Diem Name | Role | Phone | + [...] | | | | | PHYSICAL | [facility] [place] | [facility] | | | | | THERAPY | [address] | for Health | | | | | REFERRAL | Phone: | and Healing, | | | | | | [phone] | 1st floor | | | | | | Fax: | [place], [place] | | | | | | [phone] | [address] | | | | | | | Phone: | | | | | | | [phone] | | | | | | | Fax: | | | | | | | [phone] | +--------+--------+ + + + + Encounter Details +--------+---------+ + + + | Date | Type | Department | Care Team | Description | +--------+---------+ + + + | 08/18/ | Office | [facility] | Lena Rain, | Shoulder pain | | 2011 | Visit | Therapy Services at | PT [address] | (Primary Dx) | | | | [facility] | [address] | | | | | [address] | [place], [place] | | | | | Mailcode: [facility] | [address] | | | | | [facility] | | | | | | and Healing, 1st | | | | | | floor [facility] [place] | | | | | | [address] | | | | | | [phone] | | | +--------+---------+ + + + [...] encounter Progress Notes Lena Rain, PT - 08/19/2011 3:55 PM PDTFormatting of this note might be different fr om the original. [id number] KEVON WELCH Date of : 1940 Start of care: 07/24/11 Date of onset:07/22/11 Referring/Attending Practitioner: Misael Myers MD . Primary/Referral Diagnosis/ICD-9: Encounter Diagnoses Name Primary? Shoulder pain Yes Insurance: Payor: ODS MEDICARE Plan: ODS MEDICARE Product Type: PPO Service period from: 07/24/11-08/23/11 Number visits used/authorized: 3 [facility] PHYSICAL THERAPY: Post-op SHOULDER PO week 4 S/P Arthroscopic SAD, DCE, labral debridement Subjective: Pt reports that his shoulder pain is better Pain 0/.5/10 current; 1/10 at rest from using it a lot Has been doing HOME EXERCISE PROGRAM as instructed, not pushing into pain; is also ass isting with PROM with no questions; has been able to achieve 90 degrees PROM and beyond with minimal discomfort Noticing a lump in the biceps that increases with activity States he is mostly not using his sling at home both sitting and when up and about and it d oes not hurt History of Presenting Problem: Kevon Welch is [...] protocol OBJECTIVE: Observation: wearing basic sling correctly, incision intact Posture/alignment: Rounded shoulders, forward head Palpation: mild TTP at incisions, bicep -firm mm knot in at insertion of deltoid and biceps No swelling Sensation intact to light touch L UE AROM C-spine WFL PROM: FLEX 105* degrees ER: 20* IR to belly ABD to 80* MANUAL THERAPY x30 PROM for SCAPTION, ER, ABD for LLPS 5 min each direction Soft tissue mobilization periscapula, posterior shoulder Grade 1-2 joint mobilization for GH joint for pain relief Scapular distraction, subscapularis release Soft tissue mobilization [...] see comments for details of modifications, deletions Spoke with Dr. Myers at end of RX and he recommended pt use tylenol for pain control to he lp increase ROM by decreasing pain; if not effective, try ibuprofen. ASSESSMENT: Pt tolerated RX well with moderate guarding and complaints of pain; may benefit from use of pain med (tylenol or ibuprofen) prior to ROM ex Pt demonstrates moderate stiffness and guarding due to pain with activity; pain well contro lled at rest Pt limited with ROM by pain and stiffness so AROM progression avoided today; progress next visit as tolerated as pain with ROM diminishes and allows GOALS, Discussed with patient, due in 12-16 weeks: 1. Increase strength of ROTATOR CUFF/ER to 4/5; periscapular mm to 4+/5 2. Demonstrate understanding and independence HOME EXERCISE PROGRAM 3. Increase shoulder AROM to full and painfree 4. Normalize scapulo-humeral kinematics PLAN: F/U tomorrow to address limitation in ROM and pain Assess response to pain meds in increasing ROM Therapeutic exercise, Manual Therapy, Therapeutic Activity, Manual Therapy, Neuromuscular R e-Education, Gait Training, Modalities as needed, Pt. Education, HOME EXERCISE PROGRAM Per protocol. Reinforce precautions. Frequency/Duration: 1x every 2 weeks for 12-16 weeks Treatment began: 1550 Treatment ended: 1630 Reviewed cancel/no show policy with patient. Pt voiced understanding. "At times we understand you must cancel. We request that all cancellations be made at [facility] 24 hours in advance by calling [phone]. Our office is open 7am-6pm and there is a [employer] ssage line 24 hours a day. Any [...] change in their status. LENA RAIN PT [facility] THERAP[facility] [address] Mailcode: [address] [facility], [address] [place] [phone] documented in this e ncounter Plan of Treatment Not on filedocumented as of this encounter Procedures + +--------+ + + + | Procedure Name | Priori | Date/Time | Associated Diagnosis | Comments | | | ty | | | | + +--------+ + + + | NM MANUAL THER | Routin | 08/20/2011 | Shoulder pain | | | TECH,1+GERHARD,EA 15 | e | 12:40 PM | | | | MIN | | PDT | | | + +--------+ + + + | NM THERAPEUTIC | Routin | 08/20/2011 | Shoulder pain | | | EXERCISES | e | 12:40 PM | | | | | | PDT | | | + +--------+ + + + documented in this encounter Visit Diagnoses + + | Diagnosis | + + | Shoulder pain - Primary Pain in joint, shoulder region | + + documented in this encounter
--- OUTSIDE RECORDS SUMMARY | ~2018-07-16 | XMS | Encounter Summary ---
Demographics + + + | Address | [address] | | | [place] [address] | + + + | Home Phone | | + + + | Preferred Language | Unknown | + + + | Marital Status | | + + + | Cheondoism Affiliation | NON | + + + | Race | White | + + + | Ethnic Group | Not or | + + + Author + + + | Author | [facility] | + + + | Organization | [facility] | + + + | Address | Unknown | + + + | Phone | Unavailable | + + + Support + + + + + | Name | Relationship | Address | Phone | + + + + + | Elizabeth Welch | ECON | [address] | | | | | [place] | | | | | [address] | | + + + + + Care Team Providers + +------+ + | Care Project Product Manager Name | Role | Phone | [...] | | | | | Procedures | [facility] | Mailcode: | | | | | PHYSICAL | Rd | [facility] | | | | | THERAPY | [place], [place] | for Health | | | | | REFERRAL | [address] | and Healing, | | | | | | | 1st floor | | | | | | | [place], [place] | | | | | | | [address] | | | | | | | Phone: | | | | | | | [phone] | | | | | | | Fax: | | | | | | | [phone] | +--------+--------+ + + + + Encounter Details +--------+---------+ + + + | Date | Type | Department | Care Team | Description | +--------+---------+ + + + | 01/18/ | Office | [facility] | Rupesh, | Shoulder pain, right | | 2013 | Visit | Therapy Services at | Alise, PT [address] | (Primary Dx) | | | | [facility] | [address] | | | | | [address] | [place], [place] | | | | | Mailcode: [facility] | [phone] | | | | | [facility] | | | | | | and Healing, 1st | | | | | | floor [place], [place] | | | | | | [address] | | | | | | [phone] | | | +--------+---------+ + + + [...] Washington, PT - 01/18/2014 10:57 AM PST [id number] KEVON WELCH Date of : 1940 Start of care: 05/19/2013 Date of onset: 03/21/2013 Referring/Attending Practitioner: Misael Myers Primary/Referral Diagnosis/ICD-9: Shoulder pain, right (primary encounter diagnosis) Insurance: Payor: [employer] MEDICARE Plan: [employer] MEDIC[employer] Product Type: P PO Service period from: 05/19/2013 to 01/18/2014 Number visits used/authorized: 11/20 [facility] PHYSICAL THERAPY TREATMENT - ORTHO [...] Right/Left 10/18/2013 Right 01/18/2014 Flexion 141 155 [id number]* [id number] Pre 125* Post 140 145 145/150 156 Abduction 146 150 [id number]* [id number] Pre 95* Post 132 144 140/145 150 [...] end of session. 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 Pt will be discharged to [facility] t home exercise program at this [...] change in their status. Alise Washington, PT [facility] THERAP[facility] [address] Mailcode: [place] [address] documented in this encounter Plan of Treatment Not on filedocumented as of this encounter Procedures + +--------+ + + + | Procedure Name | Priori | Date/Time | Associated Diagnosis | Comments | | | ty | | | | + +--------+ + + + | [place] MANUAL THER | Routin | 01/18/2014 | Shoulder pain, | | | TECH,1+REGIONS,EA 15 | e | 1:58 PM | right | | | MIN | | PST | | | + +--------+ + + + | [place] THERAPEUTIC | Routin | 01/18/2014 | Shoulder [...]
--- OUTSIDE RECORDS SUMMARY | ~2018-07-16 | XMS | Encounter Summary ---
Demographics + + + | Address | [address] | | | [place] [address] | + + + | Home Phone | | + + + | Preferred Language | Unknown | + + + | Marital Status | | + + + | Hoahaoism Affiliation | NON | + + + | Race | White | + + + | Ethnic Group | Not or | + + + Author + + + | Author | [facility] | + + + | Organization | [facility] | + + + | Address | Unknown | + + + | Phone | Unavailable | + + + Support + + + + + | Name | Relationship | Address | Phone | + + + + + | Elizabeth Welch | ECON | [address] | | | | | [place] | | | | | [address] | | + + + + + Care Team Providers + +------+ + | Care Video Game Programmer Name | Role | Phone | + [...] (Primary Dx) | | | | [facility] | [address] | | | | | [address] | [place], [place] | | | | | Mailcode: CH3P | [address] | | | | | [facility] | | | | | | and Healing, 1st | | | | | | floor [place], [place] | | | | | | [address] | | | | | | [phone] | | | +--------+---------+ + + + [...] [place], PT - 09/22/2013 9:46 AM PDT [id number] KEVON WELCH Date of : 1940 Start of care: 05/19/2013 Date of onset: 03/21/2013 Referring/Attending Practitioner: Misael Myers Primary/Referral Diagnosis/ICD-9: Shoulder pain, right (primary encounter diagnosis) Insurance: Payor: Settle MEDICARE Plan: Settle MEDICARE Product Type: P PO Service period from: 05/19/2013 to 01/18/2014 Number visits used/authorized: 08/20 [facility] PHYSICAL THERAPY TREATMENT - ORTHO SUBJECTIVE: Current: [...] Right 08/11/2013 Right 09/22/2013 Flexion 141 155 [id number]* [id number] Pre 125* Post 140 145 Abduction 146 150 [id number]* [id number] Pre 95* Post 132 144 ER at [...] home exercise program as pt lives in [facility], [place] for posterior do minant shoulder strength Frequency/Duration: Follow up prn due to pt living in [facility], [place] Treatment began: 946 am Treatment ended: 1031 am This note is to serve as the discharge summary if Kevon fails to attend further Physical Th erapy appointments or contact the therapist regarding any change in their status. Alise [place], PT [facility] [address] Mailcode: [address] [address] documented in this encounter Plan of Treatment Not on filedocumented as of this encounter Procedures + +--------+ + + + | Procedure Name | Priori | Date/Time | Associated Diagnosis | Comments | | | ty | | | | + +--------+ + + + | ID MANUAL THER | Routin | 09/22/2013 | Shoulder pain, | | | TECH,1+REGIONS,EA 15 | e | 12:19 PM | right | | | MIN | | PDT | | | + +--------+ + + + | ID THERAPEUTIC | Routin | 09/22/2013 | Shoulder [...]
--- OUTSIDE RECORDS SUMMARY | ~2018-07-16 | XMS | Encounter Summary ---
Demographics + + + | Address | [address] | | | [place] [address] | + + + | Home Phone | | + + + | Preferred Language | Unknown | + + + | Marital Status | | + + + | Episcopal Affiliation | NON | + + + [...] [place] | | | | | [address] | | + + + + + Care Team Providers + +------+ + | Care Animal Shelter Supervisor Name | Role | Phone | [...] + + | 07/21/ | Hospital | [facility] | Misael Myers MD | | | 2011 | Encounter | [address]AY [address] | [address] | | | | | [facility] | [facility] | | | | | FOR HEALTH AND | [place], [place] | | | | | [facility], | [address] | | | | | [place] [address] | [phone] | | | | | [phone] | | | +--------+ + + + [...]
--- OUTSIDE RECORDS SUMMARY | ~2018-07-16 | XMS | Encounter Summary ---
Demographics + + + | Address | [address] | | | [place] [address] | + + + | Home Phone | | + + + | Preferred Language | Unknown | + + + | Marital Status | | + + + | Sabianist Affiliation | NON | + + + | Race | White | + + + | Ethnic Group | Not or | + + + Author + + + | Author | [facility] | + + + | Organization | [facility] | + + + | Address | Unknown | + + + | Phone | Unavailable | + + + Support + + + + + | Name | Relationship | Address | Phone | + + + + + | Elizabeth Welch | ECON | [address] | | | | | [place] | | | | | [address] | | + + + + + Care Team Providers + +------+ + | Care Night Club Manager Name | Role | Phone | [...] | 2017 | Encounter | Lab at [facility] [address] | [address] | | | | | [address] Mailcode: | [address] | | | | | [facility] | [place], [place] | | | | | Health and [facility], | [address] | | | | | 3rd Floor [place], | [phone] | | | | | [place] [address] | | | | | | [phone] | | | +--------+ + + + [...]
--- OUTSIDE RECORDS SUMMARY | ~2018-07-16 | XMS | Encounter Summary ---
Demographics + + + | Address | [address] | | | [place] [address] | + + + | Home Phone | | + + + | Preferred Language | Unknown | + + + | Marital Status | | + + + | Caodaism Affiliation | NON | + + + | Race | White | + + + | Ethnic Group | Not or | + + + Author + + + | Author | [facility] | + + + | Organization | [facility] | + + + | Address | Unknown | + + + | Phone | Unavailable | + + + Support + + + + + | Name | Relationship | Address | Phone | + + + + + | Elizabeth Welch | ECON | [address] | | | | | [place] | | | | | [address] | | + + + + + Care Team Providers + +------+ + | Care Wire Turning Machine Operator Name | Role | Phone | + +------+ + | Doyle Johnson MD | PCP | Unavailable | + +------+ + Encounter Details +--------+ + + + + | Date | Type | Department | Care Team | Description | +--------+ + + + + | 06/29/ | Anesthesia | Preoperative | Lida Houser, | | | 2011 | Event | [facility] at | ANP [address] | | | | | [facility] 4th Floor [address] | | | | | [address] | [place], [place] | | | | | Code: [address] | [address] | | | | | for Health and | [phone] | | | | | Healing,4th Floor | | | | | | [place], [place] | | | | | | [address] | | | | | | [phone] | | | +--------+ + + + [...]
--- OUTSIDE RECORDS SUMMARY | ~2018-07-16 | XMS | Clinical Summary ---
Demographics + + + | Address | [address] | | | [place] [address] | + + + | Home Phone | | + + + | Preferred Language | Unknown | + + + | Marital Status | | + + + | Muslim Affiliation | Unknown | + + + | Race | Unknown | + + + | Ethnic Group | Unknown | + + + Author + + + | Author | [facility] | + + + | Organization | [facility] | + + + | Address | [...] Team Providers + +------+ + | Care Supervisor Toy Parts Former Name | Role | Phone | + [...] | MA - GENERIC | MA-GEN | [id number] | [employer] | | | | | [...] | | al/Fam | | [phone] | [phone] | [place] | | | lyla | | | [phone] | [address] | + +--------+ +--------+ + +
--- OUTSIDE RECORDS SUMMARY | ~2018-07-16 | XMS | Encounter Summary ---
Demographics + + + | Address | [address] | | | [place] [address] | + + + | Home Phone | | + + + | Preferred Language | Unknown | + + + | Marital Status | | + + + | Scientology Affiliation | NON | + + + [...] [place] | | | | | [address] | | + + + + + Care Team Providers + +------+ + | Care Sap Bw Developer Name | Role | Phone | [...] Closed | | Physical | Diagnoses | Rafal, | [facility] | | | | Therapy | | Matt Azul MD | [address] | | | | | Displacement | [place] | [address] | | | | | of lumbar | CLINIC | Mailcode: | | | | | intervertebr | NEUROLOGY | [facility] | | | | | al disc | [address] | for Health | | | | | without | [address] [place] | and Healing, | | | | | myelopathy | [place], [place] | 1st floor | | | | | Thoracic or | [address] | [place], [place] | | | | | lumbosacral | Phone: | [phone] | | | | | neuritis or | [phone] | Phone: | | | | | radiculitis, | Fax: | [phone] | | | | | unspecified | [phone] | Fax: | | | | | | | [phone] | | | | | Degeneration | | | | | | | of lumbar | | | | | | | or | | | | | | | lumbosacral | | | | | | | intervertebr | | | | | | | al disc | | | +--------+--------+ + + + + Encounter Details +--------+---------+ + + + | Date | Type | Department | Care Team | Description | +--------+---------+ + + + | 12/24/ | Office | [facility] | Mikkigen, | Herniated lumbar | | 2011 | Visit | Therapy Services at | Raymundo, PT [address] | intervertebral disc; | | | | [facility] | [facility] | Degeneration of | | | | [address] | Road [place], [place] | lumbar | | | | Mailcode: CH3P | [address] | intervertebral disc | | | | [facility] | | | | | | and Ned, 1st | | | | | | floor [place], [place] | | | | | | [address] | | | | | | [phone] | | | +--------+---------+ + + + [...] of this encounter Patient Instructions Patient Instructions Raymundo Dailey, PT - 12/25/2011 8:47 AM PSTWalking 20 minutes per day. Gradually increasing to 3.0 mph. Ankle exercises: - Theraband resistance exercises for flexing up and out to side. 10 reps. 2 sets. May be ready for green Theraband. - Hull stretch with foot under chair. 15-20 seconds. 3 reps Balance: - Heel-toe standing. 10-15 seconds. 3-5 reps - Single leg stand. 10-15 seconds 3-5 reps. Lightly touch as needed. Back (lying down on back with knees bent): - Figure 4. 15-20 seconds. 3 reps - Piriformis stretch. 15-20 seconds. 3 reps - Stretching back of leg along with slowly pumping foot up and down. 10 reps. - Tighten stomach muscles for 5 seconds. 10 times. Hip strengthening while lying on side Computer. Take breaks every 30 minutes for at least 30 seconds documented in this encounter Progress Notes Raymundo Dailey, PT - 12/25/2011 8:46 AM PST [id number] KEVON WELCH Date of : 1940 Start of care: 10/09/2011 Date of onset: 09/10/11 Referring/Attending Practitioner: Alcira Bocanegra PA ; Clara Fernandez/Referral Di agnosis/ICD-9: 722.10H Herniated lumbar intervertebral disc Insurance: Payor: ODS MEDICARE Plan: ODS MEDICARE Product Type: PPO Service period from: 12/25/2011 to: 01/23/12 Number visits used/authorized: 6/ Neurologist: Dr. Rafal [facility] [address] [place] [address] (Office) Neurosurgeon: Sen Whitman [address] [place] [address] [facility] PHYSICAL THERAPY SUBJECTIVE Age: 71 y.o. Sex: male Chief complaint: S/p lumbar diskectomy approximately 12/03/11 Restrictions: no bending, no twisting, no lifting (> 5 lbs in until 01/03/12, > 15-25 lbs u ntil 02/02/12, > 25-30 lbs until 03/04/11) Today's report: 0/10 pain today. He reports surgery went well. He has been walking on treadmill up to 2.5 mph only for exercise. He wanted guidance before starting further exercise. He continues to note improvements as before in strength in foot and hip, balance in gait. History of Presenting Problems: Kevon Welch is a 71 y.o. male with c/o LBP that began about a month ago. He was bending over to picker feeder a garden hose and felt increased R [...] Social History: lives with Recreational Activities/Hobbies: plays [place]; reading; does a lot of computer/keyboarding Functional limitations:Walking more than 2 blocks he starts to feel fatigue in anterior tib ialis Patients goals: resume prior level of function, decrease pain OBJECTIVE: [place] Neuro Screen Updated 12/25/11 Segmental Strength Test Right Left Impact Test L3 knee Extension 5 5 L4-5 hip abduction 4+ 5 L4 Ankle DF 4 5 S1 Calf Raises 5 5 S1 Hamstrings 5 5 Ankle evertors 4+ REEVAL THERAPEUTIC EXERCISE x 20 min Home exercise program: Intervention Date* Comments Compliance 10/10/2011 Predicted: good supine Sciatic nerve glides: Seated ankle DF/PF:10x Seated HS glides:10x Seated Chin tucks/Head nods:10x 10/10/2011 Modified to supine 12/25/11 Reviewed on 12/25/11 Cat and camel 10/10/2011. Hold on 12/25/11 sidelying hip abduction 10/10/2011 reviewed 12/25/11 Supine figure 4 and piriformis stretch 10/10/2011 Reviewed 12/25/11 Supine hooklying Transverse abdominus activation 10/20/11 Sitting, supine, standing. Revie wed 12/25/11 Supine hooklying Transverse abdominus activation with Bent knee fall out 10/20/11. Hold 23/01 Ankle DF with green Theraband. Added ankle eversion with green Theraband 10/23/11. Progres sed on 12/25/11 2x15, control great toe ext compensation Standing tandem stance 10/23/11 Eyes open eyes closed, UE for support prn; do 30 sec as saba, 2 each 1x day Single leg stance 10/23/11 Eyes open eyes closed, UE for support prn; do 30 sec as saba, 2 e ach 1x day Seated Ankle DF stretch (hull stretch) 12/25/11 * indicates date intervention started. see comments for details of compliance, modification s, deletions Reviewed post op precautions, proper transfers, no bending lifting, twisting. Encouraged c ontinued breaks from computer every 30 minutes. ASSESSMENT: Improving R LE strength and function. Adhering well to postop precautions. Pt will need f uture guidance for gradual returning to normal acitivities, monitoring return of full R LE s trength and balance, as well as appropriate exercise program for prevention of future back pain. Kevon's Goals: decrease pain in R LE and LB; learn management techniques; return to PLOF Date Goals Date (status f/u) Status 12/25/2011 Independent with home exercise program 4 weeks Independent in pain management strategies 4 weeks Pt will be able to work at computer 30 minutes without exacerbating pain 8 weeks Pt will be able to do light gardening 60 minutes without exacerbating pain 12 weeks Normal R LE strength and balance to improve gait function and decrease risk of tripping fa lls. 12 weeks PLAN: Progressive exercise program and return to normal activities manual therapy, postural education, lumbo-pelvic stabilisation training , neurodynamic mobi lisation, strength and conditioning. Frequency/Duration: 4 visits for lumbar disectomy. 1x/month to accomadate long drive from [employer]. Treatment began: 830 Treatment ended: 915 This note is to serve as the discharge summary if Kevon fails to attend further Physical Th erapy appointments or contact the therapist regarding any change in their status. documented in this encounter Plan of Treatment Not on filedocumented as of this encounter Procedures + +--------+ + + + | Procedure Name | Priori | Date/Time | Associated Diagnosis | Comments | | | ty | | | | + +--------+ + + + | [place] THERAPEUTIC | Routin | 12/25/2011 | Herniated lumbar | | | EXERCISES | e | 9:41 AM | intervertebral disc | | | | | PST | Degeneration of | | | | | | lumbar | | | | | | intervertebral disc | | + +--------+ + + + | [place] PHYS THERAPY | Routin | 12/25/2011 | Herniated lumbar | | | RE-EVALUATION | e | 9:41 AM | intervertebral disc | | | | | PST | Degeneration of | | | | [...]
--- OUTSIDE RECORDS SUMMARY | ~2018-07-16 | XMS | Encounter Summary ---
Demographics + + + | Address | [address] | | | [place] [address] | + + + | Home Phone [...] + + + | Author | [facility] | + + + | Organization | [facility] | + + + | Address | Unknown | + + + | Phone | Unavailable | + + + Support + + + + + | Name | Relationship | Address | Phone | + + + + + | Elizabeth Welch | ECON | [address] | | | | | [place] | | | | | [address] | | + + + + + Care Team Providers + +------+ + | Care Due Diligence Coordinator Name | Role | Phone | [...] | | | | | PHYSICAL | [facility] [place] | [facility] | | | | | THERAPY | [address] | for Health | | | | | REFERRAL | Phone: | and Healing, | | | | | | [phone] | 1st floor | | | | | | Fax: | [place], [place] | | | | | | [phone] | [address] | | | | | | | Phone: | | | | | | | [phone] | | | | | | | Fax: | | | | | | | [phone] | +--------+--------+ + + + + Encounter Details +--------+ + + + + | Date | Type | Department | Care Team | Description | +--------+ + + + + | 05/13/ | Encyclopedia Research Worker | Orthopaedics at | Katty Chairez PA | Shoulder pain | | 2011 | | [facility] [address] | [address] | (Primary Dx) | | | | Ave Mailcode: CH12A | [place], [place] | | | | | [facility] | [address] | | | | | and , | [phone] | | | | | Floor [place], [place] | | | | | | [address] | | | | | | [phone] | | | +--------+ + + + [...]
--- OUTSIDE RECORDS SUMMARY | ~2018-07-16 | XMS | Encounter Summary ---
Demographics + + + | Address | [address] | | | [place] [address] | + + + | Home Phone | | + + + | Preferred Language | Unknown | + + + | Marital Status | | + + + | Jainism Affiliation | NON | + + + | Race | White | + + + | Ethnic Group | Not or | + + + Author + + + | Author | [facility] | + + + | Organization | [facility] | + + + | Address | Unknown | + + + | Phone | Unavailable | + + + Support + + + + + | Name | Relationship | Address | Phone | + + + + + | Elizabeth Welch | ECON | [address] | | | | | [place] | | | | | [address] | | + + + + + Care Team Providers + +------+ + | Care Garland Machine Operator Name | Role | Phone [...] | | | | | THERAPY | [facility] [place] | for Health | | | | | REFERRAL | [address] | and Healing, | | | | | | Phone: | 1st floor | | | | | | [phone] | [place], [place] | | | | | | Fax: | [address] | | | | | | [phone] | Phone: | | | | | | | [phone] | | | | | | | Fax: | | | | | | | [phone] | +--------+--------+ + + + + Encounter Details +--------+---------+ + + + | Date | Type | Department | Care Team | Description | +--------+---------+ + + + | 11/02/ | Office | [facility] | Lena Rain, | Shoulder pain | | 2011 | Visit | Therapy Services at | PT [address] | (Primary Dx) | | | | [facility] | [address] | | | | | [address] | [facility] [place] | | | | | Mailcode: [facility] | [address] | | | | | [facility] | | | | | | and Healing, 1st | | | | | | floor [place], [place] | | | | | | [address] | | | | | | [phone] | | | +--------+---------+ + + + [...] might be different fr om the original. [id number] KEVON WELCH Date of : 1940 Start of care: 07/24/11 Date of onset:07/22/11 Referring/Attending Practitioner: Misael Myers MD . Primary/Referral Diagnosis/ICD-9: Encounter Diagnoses Name Primary? 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 Pt still working on mid [...] as 24 hours in advance by calling [phone]. Our office is open 7am-6pm and there is a [employer] ssage line 24 hours a day. Any [...] in their status. LENA RAIN PT [facility] [address] Mailcode: [address] [facility], [address] [place] [address] documented in this e ncounter Plan of Treatment Not on filedocumented as of this encounter Procedures + +--------+ + + + | Procedure Name | Priori | Date/Time | Associated Diagnosis | Comments | | | ty | | | | + +--------+ + + + | [place] MANUAL THER | Routin | 11/03/2011 | Shoulder pain | | | TECH,1+REGIONS,EA 15 | e | 12:22 PM | | | | MIN | | PDT | | | + +--------+ + + + | [place] THERAPEUTIC | Routin | 11/03/2011 | Shoulder [...]
--- OUTSIDE RECORDS SUMMARY | ~2018-07-16 | XMS | Encounter Summary ---
Demographics + + + | Address | [address] | | | [place] [address] | + + + | Home Phone [...] Author + + + | Author | [facility] | + + + | Organization | [facility] | + + + | Address | Unknown | + + + | Phone | Unavailable | + + + Support + + + + + | Name | Relationship | Address | Phone | + + + + + | Elizabeth Welch | ECON | [address] | | | | | [place] | | | | | [address] | | + + + + + Care Team Providers + +------+ + | Care Valving Machine Operator Name | Role | Phone [...] | (Primary Dx) | | | | [facility] | [address] | | | | | [address] | [place], [place] | | | | | Mailcode: [facility] | [address] | | | | | [facility] | | | | | | and Healing, 1st | | | | | | floor [facility] [place] | | | | | | [address] | | | | | | [phone] | | | +--------+---------+ + + + [...] Acosta, PT - 02/13/2011 6:28 PM PST [id number] KEVON WELCH Date of : 1940 Start of care: 02/13/2011 Date of onset: 12/24/2010 Referring/Attending Practitioner: Misael Myers MD . Primary/Referral Diagnosis/ICD-9: Encounter Diagnoses Name Primary? 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 [...] cont with PT closer to home in [facility], [place] Treatment began: 1005 Treatment ended: 1030 This note is to serve as the discharge summary if pt fails to attend further Physical Thera py appointments or contact the therapist regarding any change in their status. ALISE ACOSTA PT [facility] [address] Mailcode: [address] [address] documented in this encounter Plan [...] + +--------+ + + + | [place] [facility] | Routin | 02/13/2011 | [...]
--- OUTSIDE RECORDS SUMMARY | ~2018-07-16 | XMS | Encounter Summary ---
Demographics + + + | Address | [address] | | | [place] [address] | + + + | Home Phone [...] [place] | | | | | [address] | | + + + + + Care Team Providers + +------+ + | Care Cook Manager Name | Role | Phone | [...] | | | | | Procedures | [facility] | Mailcode: | | | | | PHYSICAL | Rd | [facility] | | | | | THERAPY | [place], [place] | for Health | | | | | REFERRAL | [address] | and Healing, | | | | | | | 1st floor | | | | | | | [place], [place] | | | | | | | [address] | | | | | | | Phone: | | | | | | | [phone] | | | | | | | Fax: | | | | | | | [phone] | +--------+--------+ + + + + Encounter Details +--------+---------+ + + + | Date | Type | Department | Care Team | Description | +--------+---------+ + + + | 07/20/ | Office | [place] Physical | Rupesh, | Shoulder pain | | 2013 | Visit | Therapy Services at | Alise, PT [address] | (Primary Dx) | | | | [facility] | [address] | | | | | [address] | [place], [place] | | | | | Mailcode: CH3P | [address] | | | | | [facility] | | | | | | and Ned, 1st | | | | | | floor [place], [place] | | | | | | [address] | | | | | | [phone] | | | +--------+---------+ + + + [...] [place], PT - 07/20/2013 2:33 PM PDT [id number] KEVON WELCH Date of : 1940 Start of care: 05/19/2013 Date of onset: 03/21/2013 Referring/Attending Practitioner: Misael Myers Primary/Referral Diagnosis/ICD-9: Shoulder pain (primary encounter diagnosis) Insurance: Payor: [employer] ODS MEDICARE Plan: [place] MEDICARE Product Type: P PO Service period from: 05/19/2013 to - Number visits used/authorized: 3- [facility] PHYSICAL THERAPY TREATMENT - ORTHO SUBJECTIVE: Current: Right shoulder is so-so. Has been traveling in [place], [place], and [place]. Di fficulty lifting suitcase to overhead bin and pulling through city. Stopped taking ibuprofe n and had spontaneous bruising - will call PCP once home in [facility]. Noticed minimal silva ge in shoulder motion [...] Right Left Right 07/20/2013 Flexion 141 155 [id number]* [id number] Abduction 146 150 [id number]* [id number] ER at 90 deg abd 90 (60 [...] home exercise program as pt lives in [place] for posterior do minant shoulder strength Frequency/Duration: Follow up prn due to pt living in [place], [place] and traveling to [facility] for 4 weeks Treatment began: 0230 pm Treatment ended: 0315 pm This note is to serve as the discharge summary if Kevon fails to attend further Physical Th erapy appointments or contact the therapist regarding any change in their status. Alise [place], PT [facility] REHABILITATION SERVICES AND HAND THERAPY [address] Mailcode: [place] [address] documented in this encounter Plan of Treatment Not on filedocumented as of this encounter Procedures + +--------+ + + + | Procedure Name | Priori | Date/Time | Associated Diagnosis | Comments | | | ty | | | | + +--------+ + + + | NE MANUAL THER | Routin | 07/20/2013 | [...]
--- OUTSIDE RECORDS SUMMARY | ~2018-07-16 | XMS | Encounter Summary ---
Demographics + + + | Address | [address] | | | [place] [address] | + + + | Home Phone [...] [place] | | | | | [address] | | + + + + + Care Team Providers + +------+ + | Care Tailor Men'S Ready To Wear Name | Role | Phone | + [...] | | shoulder | Provider Per | [address] | | | | | pain | Patient NO | Celestine Morales | | | | | | REFERRING | Dejan Onofre | | | | | | PROVIDER PER | [place] | | | | | | [place] | [address] | | | | | | | Phone: | | | | | | | [phone] | | | | | | | Fax: | | | | | | | [phone] | +--------+--------+ + + + + Encounter Details +--------+---------+ + + + | Date | Type | Department | Care Team | Description | +--------+---------+ + + + | 06/29/ | Office | Orthopaedics at | Katty Chairez PA | Other specified | | 2011 | Visit | [facility] [address] | [address] | pre-operative | | | | Ave Mailcode: CH12A | [place], [place] | examination (Primary | | | | [facility] | [address] | Dx) | | | | and Healing, 12th | [phone] | | | | | Floor [place], [place] | | | | | | [address] | | | | | | [phone] | | | +--------+---------+ + + + [...] take place on the hill at the [facility]: Surgeries scheduled in the [facility] (4 North): registration is located on the 4th floor of [facility] (Day Surgery). Surgeries scheduled in the [facility]: registration is located on the 9th floor. Surgeries scheduled in [facility]: registration is located on the 6th floor. Surgeries scheduled in the [facility]: registration is located i n the [facility] on the first floor. For surgeries scheduled to take place at the [facility]: registration is l [...] If you use specialized medical equipment at [employer], please check with your provider before bringing [...]
--- OUTSIDE RECORDS SUMMARY | ~2018-07-16 | XMS | Encounter Summary ---
Demographics + + + | Address | [address] | | | [place] [address] | + + + | Home Phone [...] [place] | | | | | [address] | | + + + + + Care Team Providers + +------+ + | Care Casting House Worker Name | Role | Phone | [...] | follow up) | | | | [facility] | | | | | | [address] | | | | | | Mail Code: CH15P | | | | | | [facility] | | | | | | and Healing, | | | | | | Floor [place], [place] | | | | | | [address] | | | | | | [phone] | | | +--------+ + + + [...]
--- OUTSIDE RECORDS SUMMARY | ~2018-07-16 | XMS | Encounter Summary ---
Demographics + + + | Address | [address] | | | [place] [address] | + + + | Home Phone [...] [place] | | | | | [address] | | + + + + + Care Team Providers + +------+ + | Care Spindle Repairer Name | Role | Phone | + [...] | | Left | Referring | MD iMsael | | | | | shoulder | Provider Per | [address] | | | | | pain | Patient NO | Celestine Morales | | | | | | REFERRING | Dejan Onofre | | | | | | PROVIDER PER | [place] | | | | | | [place] | [address] | | | | | | | Phone: | | | | | | | [phone] | | | | | | | Fax: | | | | | | | [phone] | +--------+--------+ + + + + Encounter Details +--------+---------+ + + + | Date | Type | Department | Care Team | Description | +--------+---------+ + + + | 02/13/ | Office | Orthopaedics at | Misael Myers MD | Shoulder pain; | | 2011 | Visit | [facility] [address] | [address] [facility] | Rotator cuff | | | | Sarika Mailcode: CH12A | [address] | tendinitis; | | | | Center for Health | [facility] [place] | Disorders of bursae | | | | and Healing, | [address] | and tendons in | | | | Floor [facility] [place] | [phone] | shoulder region, | | | | [address] | | unspecified | | | | [phone] | | | +--------+---------+ + + + [...] Speed's biceps test was ne gative. and [place]'s test was positive. The patient had normal [...]
--- OUTSIDE RECORDS SUMMARY | ~2018-07-16 | XMS | Encounter Summary ---
Demographics + + + | Address | [address] | | | [place] [address] | + + + | Home Phone [...] + + + | Author | [facility] | + + + | Organization | [facility] | + + + | Address | Unknown | + + + | Phone | Unavailable | + + + Support + + + + + | Name | Relationship | Address | Phone | + + + + + | Elizabeth Welch | ECON | [address] | | | | | [place] | | | | | [address] | | + + + + + Care Team Providers + +------+ + | Care Customs Brokerage Agent Name | Role | Phone | + [...] | follow up) | | | | [facility] | | | | | | [address] | | | | | | Mail Code: CH15P | | | | | | [facility] | | | | | | and Healing, | | | | | | Floor [place], [place] | | | | | | [address] | | | | | | [phone] | | | +--------+ + + + [...]
--- OUTSIDE RECORDS SUMMARY | ~2018-07-16 | XMS | Encounter Summary ---
Demographics + + + | Address | [address] | | | [place] [address] | + + + | Home Phone [...] [place] | | | | | [address] | | + + + + + Care Team Providers + +------+ + | Care Vineyard Supervisor Name | Role | Phone | [...] | | | | | THERAPY | [place], [place] | for Health | | | | | REFERRAL | [address] | and Healing, | | | | | | Phone: | 1st floor | | | | | | [phone] | [place], [place] | | | | | | Fax: | [address] | | | | | | [phone] | Phone: | | | | | | | [phone] | | | | | | | Fax: | | | | | | | [phone] | +--------+--------+ + + + + Encounter Details +--------+---------+ + + + | Date | Type | Department | Care Team | Description | +--------+---------+ + + + | 10/08/ | Office | [facility] Physical | Philly Rain, | Low back pain | | 2011 | Visit | Therapy Services at | PT [address] | (Primary Dx); | | | | [facility] | [address] | Herniated lumbar | | | | [address] | [place], [place] | intervertebral disc; | | | | Mailcode: CH3P | [address] | Lumbar | | | | [facility] | | radiculopathy; | | | | and Healing, 1st | | Degeneration of | | | | floor [place], [place] | | lumbar | | | | [address] | | intervertebral disc | | | | [phone] | | | +--------+---------+ + + + [...] might be different fr om the original. [id number] KEVON WELCH Date of : 1940 Start of care: 10/09/2011 Date of onset: 09/10/11 Referring/Attending Practitioner: Alcira Bocanegra PA . Primary/Referral Diagnosis/ICD-9: 724.2A Low back pain Insurance: Payor: ODS MEDICARE Plan: ODS MEDICARE Product Type: PPO Service period from: 10/09/2011 to: 11/08/11 Number visits used/authorized: 1/ Neurologist: Dr. [facility] [address] [place] [address] (Office) [facility] PHYSICAL THERAPY INITIAL EVALUATION SUBJECTIVE Age: 71 y.o. Sex: male Chief complaint: Chief Complaint Patient presents with LBP - Low back pain History of Presenting Problems: Kevon Welch is a 71 y.o. male with c/o LBP that began about a month ago. He was bending over to pear picker a garden hose and felt increased [...] Social History: lives with Recreational Activities/Hobbies: plays [employer]; reading; does a lot of computer/keyboarding Functional [...] DF 4- 4+ L5 EHL 4 4+ [id number] Eversion 4 5 S1 Calf Raises 5 [...] change in their status. PHILLY RAIN PT [facility] REHABILITATION SERVICES AND HAND THERAPY [address] Mailcode: [address] [facility], 1st [facility] [address] documented in this e ncounter Plan of Treatment Not on filedocumented as of this encounter Procedures + +--------+ + + + | Procedure Name | Priori | Date/Time | Associated Diagnosis | Comments | | | ty | | | | + +--------+ + + + | CT THERAPEUTIC | Routin | 10/09/2011 | Low back pain | | | EXERCISES | e | 1:53 PM | | | | | | PDT | | | + +--------+ + + + | CT PHYS THERAPY | Routin | 10/09/2011 | [...]
--- OUTSIDE RECORDS SUMMARY | ~2018-07-16 | XMS | Encounter Summary ---
Demographics + + + | Address | [address] | | | [place] [address] | + + + | Home Phone | | + + + | Preferred Language | Unknown | + + + | Marital Status | | + + + | Druze Affiliation | NON | + + + | Race | White | + + + | Ethnic Group | Not or | + + + Author + + + | Author | [facility] | + + + | Organization | [facility] | + + + [...] [place] | | | | | [address] | | + + + + + Care Team Providers + +------+ + | Care Technology Applications Teacher Name | Role | Phone | + [...] | | sprain | REFERRING | [address] [place], | | | | | Osteoarthros | PROVIDER PER | [place] | | | | | is, | [place] | [address] | | | | | unspecified | | Phone: | | | | | whether | | [phone] | | | | | generalized | | Fax: | | | | | or | | [phone] | | | | | localized, | [...] | | | | | | | BEE FARMER | | | | | | | [...] | | | Ave Mailcode: CH12A | [place], [place] | | | | | [facility] | [address] | | | | | and [facility], [facility] | [phone] | | | | | Floor [place], [place] | | | | | | [address] | | | | | | [phone] | | | +--------+---------+ + + + [...]
--- OUTSIDE RECORDS SUMMARY | ~2018-07-16 | XMS | Encounter Summary ---
Demographics + + + | Address | [address] | | | [place] [address] | + + + | Home Phone [...] + + + | Author | [facility] | + + + | Organization | [facility] | + + + | Address | Unknown | + + + | Phone | Unavailable | + + + Support + + + + + | Name | Relationship | Address | Phone | + + + + + | Elizabeth Welch | ECON | [address] | | | | | [place] | | | | | [address] | | + + + + + Care Team Providers + +------+ + | Care Government Services Professional Name | Role | Phone | [...] | | | | | THERAPY | [address] | for Health | | | | | REFERRAL | Phone: | and Healing, | | | | | | [phone] | 1st floor | | | | | | Fax: | [place], [place] | | | | | | [phone] | [address] | | | | | | | Phone: | | | | | | | [phone] | | | | | | | Fax: | | | | | | | [phone] | +--------+--------+ + + + + Encounter [...] [facility] | [address] | | | | | [address] | [place], [place] | | | | | Mailcode: CH3P | [address] | | | | | [facility] | | | | | | and Healing, 1st | | | | | | floor [facility] [place] | | | | | | [address] | | | | | | [phone] | | | +--------+---------+ + + + [...] might be different fr om the original. [id number] KEVON WELCH Date of : 1940 Start [...] request that all cancellations be made at [facility] t 24 hours in advance by calling [phone]. Our office is open 7am-6pm and there is a [employer] line 24 hours a day. Any appointment [...] their status. LENA RAIN PT [facility] REHABILITATION SERVICES AND HAND THERAPY [address] Mailcode: [address] [facility], 1st [facility] [address] documented in this e ncounter Plan [...] | SD MANUAL THER | Routin | 09/01/2011 | Shoulder pain | | | TECH,1+GERHARD,EA 15 | e | 4:16 PM | | | | MIN | | PDT | | | + +--------+ + + + | SD THERAPEUTIC | Routin | 09/01/2011 | Shoulder [...]
--- OUTSIDE RECORDS SUMMARY | ~2018-07-16 | XMS | Encounter Summary ---
Demographics + + + | Address | [address] | | | [place] [address] | + + + | Home Phone [...] [place] | | | | | [address] | | + + + + + Care Team Providers + +------+ + | Care Digital Music Instructor Name | Role | Phone | + [...] Therapy Services at | PT [address] [facility] | | | | | [facility] | [address]estine [address]ales | | | | | [address] | [place], [place] | | | | | Mailcode: CH3P | [address] | | | | | [facility] | | | | | | and Healing, 1st | | | | | | floor [place], [place] | | | | | | [address] | | | | | | [phone] | | | +--------+ + + + [...]
--- OUTSIDE RECORDS SUMMARY | ~2018-07-16 | XMS | Encounter Summary ---
Demographics + + + | Address | [address] | | | [place] [address] | + + + | Home Phone [...] [place] | | | | | [address] | | + + + + + Care Team Providers + +------+ + | Care Copper Roller Handler Printing Name | Role | Phone | + [...] | | | | | Procedures | [facility] | Mailcode: | | | | | PHYSICAL | Rd | [facility] Center | | | | | THERAPY | [place], [place] | for Health | | | | | REFERRAL | [address] | and Healing, | | | | | | Phone: | 1st floor | | | | | | [phone] | [place], [place] | | | | | | Fax: | [address] | | | | | | [phone] | Phone: | | | | | | | [phone] | | | | | | | Fax: | | | | | | | [phone] | +--------+--------+ + + + + Encounter [...] back pain; Lumbar | | | | [facility] | [facility] [address] | radiculopathy; | | | | [address] | [place], [place] | Herniated lumbar | | | | Mailcode: CH3P | [address] | intervertebral disc; | | | | [facility] | | Degeneration of | | | | and Healing, 1st | | lumbar | | | | floor [place], [place] | | intervertebral disc | | | | [address] | | | | | | [phone] | | | +--------+---------+ + + + [...] might be different fr om the original. [id number] KEVON WELCH Date of : 1940 Start of care: 10/09/2011 Date of onset: 09/10/11 Referring/Attending Practitioner: Alcira Bocanegra PA . Primary/Referral Diagnosis/ICD-9: 722.10H Herniated lumbar intervertebral disc Insurance: Payor: ODS MEDICARE Plan: ODS MEDICARE Product Type: PPO Service period from: 10/09/2011 to: 11/08/11 Number visits used/authorized: 4/ Neurologist: Dr. Rafal Benites [facility] [address] [place] [address] (Office) [facility] PHYSICAL [...] month ago. He was bending over to burr picker a garden hose and felt increased [...] Social History: lives with Recreational Activities/Hobbies: plays [employer]; reading; does a lot of computer/keyboarding Functional [...] change in their status. LENA RAIN PT [facility] REHABILITATION SERVICES AND HAND THERAPY [address] Mailcode: Ch3p [facility], 1st [facility] [address] documented in this e ncounter Plan of Treatment Not on filedocumented as of this encounter Procedures + +--------+ + + + | Procedure Name | Priori | Date/Time | Associated Diagnosis | Comments | | | ty | | | | + +--------+ + + + | MA THERAPEUTIC | Routin | 10/24/2011 | Shoulder [...]
--- OUTSIDE RECORDS SUMMARY | ~2018-07-16 | XMS | Encounter Summary ---
Demographics + + + | Address | [address] | | | [place] [address] | + + + | Home Phone | | + + + | Preferred Language | Unknown | + + + | Marital Status | | + + + | Spiritism Affiliation | NON | + + + [...] [place] | | | | | [address] | | + + + + + Care Team Providers + +------+ + | Care Motor Room Controller Name | Role | Phone | + [...] | | | | | REFERRAL | [address] | and Healing, | | | | | | Phone: | 1st floor | | | | | | [phone] | [place], [place] | | | | | | Fax: | [address] | | | | | | [phone] | Phone: | | | | | | | [phone] | | | | | | | Fax: | | | | | | | [phone] | +--------+--------+ + + + + Encounter Details +--------+---------+ + + + | Date | Type | Department | Care Team | Description | +--------+---------+ + + + | 11/12/ | Office | [facility] Physical | Lena Rain, | Shoulder pain | | 2011 | Visit | Therapy Services at | PT [address] | (Primary Dx) | | | | [facility] | [address] | | | | | [address] | [facility] [place] | | | | | Mailcode: CH3P | [address] | | | | | [facility] | | | | | | and Healing, 1st | | | | | | floor [place], [place] | | | | | | [address] | | | | | | [phone] | | | +--------+---------+ + + + [...] might be different fr om the original. [id number] KEVON WELCH Date of : 1940 Start of care: 07/24/11 Date of onset:07/22/11 Referring/Attending Practitioner: Misael Myers MD . Primary/Referral Diagnosis/ICD-9: Encounter Diagnoses Name Primary? Shoulder pain Yes Insurance: Payor: [employer] MEDICARE Plan: ODS MEDICARE Product Type: PPO Service period from: 08/24/11-11/22/11 Number visits used/authorized: 8 [facility] PHYSICAL THERAPY: Post-op SHOULDER PO week S/P [...] given: Sidelying EXTERNAL ROTATION With no weight [id number] Standing B EXTERNAL ROTATION With yellow Tband 1x12 (increase up to 3 sets)-verbal TV watching stretch supine with towel rolls supporting weight of elbow x 5 min -reviewed t owel placement and performed for 5 min Standing Ext with yellow Tband [id number] INTERNAL ROTATION Behind the back stretch with [...] as 24 hours in advance by calling [phone]. Our office is open 7am-6pm and there is a [employer] ssage line 24 hours a day. Any [...] change in their status. LENA RAIN PT [facility] REHABIL[facility] SERVICES AND HAND THERAPY [address] Mailcode: [address] [facility], [address] [place] [address] documented in this e ncounter Plan of Treatment Not on filedocumented as of this encounter Procedures + +--------+ + + + | Procedure Name | Priori | Date/Time | Associated Diagnosis | Comments | | | ty | | | | + +--------+ + + + | [place] MANUAL THER | Routin | 11/13/2011 | Shoulder pain | | | TECH,1+REGIONS,EA 15 | e | 4:58 PM | | | | MIN | | PDT | | | + +--------+ + + + | [place] THERAPEUTIC | Routin | 11/13/2011 | Shoulder [...]
--- OUTSIDE RECORDS SUMMARY | ~2018-07-16 | XMS | Encounter Summary ---
Demographics + + + | Address | [address] | | | [place] [address] | + + + | Home Phone [...] [place] | | | | | [address] | | + + + + + Care Team Providers + +------+ + | Care Individual Pension Consultant Name | Role | Phone | + [...] | | | | | THERAPY | [facility] [place] | for Health | | | | | REFERRAL | [address] | and Healing, | | | | | | Phone: | 1st floor | | | | | | [phone] | [facility] [place] | | | | | | Fax: | [address] | | | | | | [phone] | Phone: | | | | | | | [phone] | | | | | | | Fax: | | | | | | | [phone] | +--------+--------+ + + + + Encounter [...] | [facility] | [address] | Degeneration of | | | | [address] | [place], [place] | lumbar | | | | Mailcode: CH3P | [address] | intervertebral disc; | | | | [facility] | | Low back pain; | | | | and Healing, 1st | | Lumbar radiculopathy | | | | floor [place], [place] | | | | | | [address] | | | | | | [phone] | | | +--------+---------+ + + + [...] might be different fr om the original. [id number] KEVON WELCH Date of : 1940 Start of care: 10/09/2011 Date of onset: 09/10/11 Referring/Attending Practitioner: Alcira Bocanegra PA . Primary/Referral Diagnosis/ICD-9: 722.10H Herniated lumbar intervertebral disc Insurance: Payor: ODS MEDICARE Plan: ODS MEDICARE Product Type: PPO Service period from: 10/09/2011 to: 11/08/11 Number visits used/authorized: 5/ Neurologist: Dr. [facility] [address] [place] [address] (Office) [facility] PHYSICAL THERAPY SUBJECTIVE Age: 71 [...] month ago. He was bending over to roll picker a garden hose and felt increased [...] Social History: lives with Recreational Activities/Hobbies: plays [employer]; reading; does a lot of computer/keyboarding Functional [...] change in their status. LENA RAIN PT [facility] REHABILITATION SERVICES AND HAND THERAPY [address] Mailcode: [facility], [address] [place] [address] documented in this e ncounter Plan of Treatment Not on filedocumented as of this encounter Procedures + +--------+ + + + | Procedure Name | Priori | Date/Time | Associated Diagnosis | Comments | | | ty | | | | + +--------+ + + + | [place] THERAPEUTIC | Routin | 10/23/2011 | Herniated [...]
--- OUTSIDE RECORDS SUMMARY | ~2018-07-16 | XMS | Encounter Summary ---
Demographics + + + | Address | [address] | | | [place] [address] | + + + | Home Phone [...] [place] | | | | | [address] | | + + + + + Care Team Providers + +------+ + | Care Macerator Operator Name | Role | Phone | + +------+ + | Doyle Johnson MD | PCP | Unavailable | + +------+ + Encounter Details +--------+---------+ + + + | Date | Type | Department | Care Team | Description | +--------+---------+ + + + | 10/09/ | Office | [facility] | Schnathanielgen, | Herniated lumbar | | 2011 | Visit | Therapy Services at | Raymundo, PT [address] | intervertebral disc | | | | [facility] | [facility] | (Primary Dx) | | | | [address] | Road [place], [place] | | | | | Mailcode: [facility] | [address] | | | | | [facility] | | | | | | and Healing, [email or web address]] | | | | | | floor [place], [place] | | | | | | [address] | | | | | | [phone] | | | +--------+---------+ + + + [...] documented as of this encounter Progress Notes Raymundo Dailey, PT - 10/10/2011 1:41 PM PDT [id number] KEVON WELCH Date of : 1940 Start of care: 10/09/2011 Date of onset: 09/10/11 Referring/Attending Practitioner: Alcira Bocanegra PA . Primary/Referral Diagnosis/ICD-9: 722.10H Herniated lumbar intervertebral disc Insurance: Payor: ODS MEDICARE Plan: ODS MEDICARE Product Type: PPO Service period from: 10/09/2011 to: 11/08/11 Number visits used/authorized: 1/ Neurologist: Dr. Rafal Benites [address] [address] (Office) [facility] PHYSICAL THERAPY SUBJECTIVE Age: 71 y.o. Sex: male Chief complaint: Today's report: 03/21. Walking. Foot drop. 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 No lying on stomach since 8 years o ld due to back pain History of Presenting Problems: Kevon Welch is a 71 y.o. male with c/o LBP that began about a month ago. He was bending over to sweet pickle maker a garden hose and felt increased R [...] Social History: lives with Recreational Activities/Hobbies: plays bassoon; reading; does a lot of computer/keyboarding Functional limitations:Walking more than 2 blocks he starts to feel fatigue in anterior tib ialis Patients goals: resume prior level of function, decrease pain OBJECTIVE:Ambulation into PT without device. Mild foot drop on R Lower Quarter Neuro Screen Segmental Strength Test Right Left Impact Test L1-3 hip flexion na na L3 knee Extension 5 5 L4-5 hip abduction 4 5 L4 Ankle DF 4- 5 S1 Calf Raises 5 5 S1 Hamstrings 5 5 Home exercise program: Intervention Date* Comments Compliance 10/10/2011 Predicted: good Seated Sciatic nerve glides: Seated ankle DF/PF:10x Seated HS glides:10x Seated Chin tucks/Head nods:10x 10/10/2011 Cat and camel 10/10/2011 sidelying hip abduction 10/10/2011 Supine figure 4 and piriformis stretch 10/10/2011 * indicates date intervention started. see comments for details of compliance, modification s, deletions THERAPEUTIC ACTIVITY x5 min Discussed proper sitting and sleeping postures, using pillow support as needed. Log roll w ith in/out of bed. Avoiding bending, lifting, twisting. Also discussed these compensations as being temporary until sxs resolve. ASSESSMENT: Pt presents with signs and symptoms [...] minutes without exacerbating pain 12 weeks PLAN: Add Brendan exercises, consider manual traction techniques as indicated. Caution with exercises supine as pt has pain with laying manual therapy, postural education, lumbo-pelvic stabilisation training , neurodynamic mobi lisation, strength and conditioning. Frequency/Duration: 1-2x per week, decreasing frequency to accomadate long drive from [place] Duration in months: 1-2months Treatment began: 1329 Treatment ended: 1414 This note is to serve as the [...] | + +--------+ + + + | [place] THERAPEUTIC | Routin | 10/10/2011 | Herniated lumbar | | | EXERCISES | e | 4:55 PM | intervertebral disc | | | | | PDT | | | + +--------+ + + + documented in this encounter Visit Diagnoses + + | Diagnosis | + + | Herniated lumbar intervertebral disc - Primary Displacement of lumbar intervertebral | | disc without myelopathy | + + documented in this encounter
--- OUTSIDE RECORDS SUMMARY | ~2018-07-16 | XMS | Encounter Summary ---
Demographics + + + | Address | [address] | | | [place] [address] | + + + | Home Phone [...] + + + | Author | [facility] | + + + | Organization | [facility] | + + + | Address | Unknown | + + + | Phone | Unavailable | + + + Support + + + + + | Name | Relationship | Address | Phone | + + + + + | Elizabeth Welch | ECON | [address] | | | | | [place] | | | | | [address] | | + + + + + Care Team Providers + +------+ + | Care Litigation Docket Manager Name | Role | Phone | [...] | follow up) | | | | [facility] | | | | | | [address] | | | | | | Mail Code: CH15P | | | | | | [facility] | | | | | | and Healing, | | | | | | Floor [place], [place] | | | | | | [address] | | | | | | [phone] | | | +--------+ + + + [...]
--- OUTSIDE RECORDS SUMMARY | ~2018-07-16 | XMS | Encounter Summary ---
Demographics + + + | Address | [address] | | | [place] [address] | + + + | Home Phone [...] [place] | | | | | [address] | | + + + + + Care Team Providers + +------+ + | Care Director Of Vocational Guidance Name | Role | Phone | + [...] | | | | Thoracic or | [address] | [place], [place] | | | | | lumbosacral | Phone: | [phone] | | | | | neuritis or | [phone] | Phone: | | | | | radiculitis, | Fax: | [phone] | | | | | unspecified | [phone] | Fax: | | | | | | | [phone] | | | | | Degeneration | [...] | intervertebral disc; | | | | [facility] | [facility] | Degeneration of | | | | [address] | Road [place], [place] | lumbar | | | | Mailcode: CH3P | [address] | intervertebral disc | | | | [facility] | | | | | | and Ned, 1st | | | | | | floor [place], [place] | | | | | | [address] | | | | | | [phone] | | | +--------+---------+ + + + [...] Dailey, PT - 12/25/2011 8:46 AM PST [id number] KEVON WELCH Date of : 1940 Start of care: 10/09/2011 Date of onset: 09/10/11 Referring/Attending Practitioner: Alcira Bocanegra PA ; Clara Fernandez/Referral Di agnosis/ICD-9: 722.10H Herniated lumbar intervertebral disc Insurance: Payor: ODS MEDICARE Plan: ODS MEDICARE Product Type: PPO Service period from: 12/25/2011 to: 01/23/12 Number visits used/authorized: 6/ Neurologist: Dr. Rafal Benites [facility] [address] [place] [address] (Office) Neurosurgeon: Sen Whitman [address] [place] [address] [facility] PHYSICAL THERAPY SUBJECTIVE Age: [...] month ago. He was bending over to pick pack worker a garden hose and felt increased R [...] Social History: lives with Recreational Activities/Hobbies: plays [employer]; reading; does a lot of computer/keyboarding Functional [...] disectomy. 1x/month to accomadate long drive from [place]. Treatment began: 830 Treatment ended: 915 This [...] + | [place] THERAPEUTIC | Routin | 12/25/2011 | Herniated lumbar | | | EXERCISES | e | 9:41 AM | intervertebral disc | | | | | PST | Degeneration of | | | | | | lumbar | | | | | | intervertebral disc | | + +--------+ + + + | [place] PHYS THERAPY | Routin | 12/25/2011 | [...]
--- OUTSIDE RECORDS SUMMARY | ~2018-07-16 | XMS | Encounter Summary ---
Demographics + + + | Address | [address] | | | [place] [address] | + + + | Home Phone [...] + + + | Author | [facility] | + + + | Organization | [facility] | + + + | Address | Unknown | + + + | Phone | Unavailable | + + + Support + + + + + | Name | Relationship | Address | Phone | + + + + + | Elizabeth Welch | ECON | [address] | | | | | [place] | | | | | [address] | | + + + + + Care Team Providers + +------+ + | Care Inking Machine Tender Name | Role | Phone | + +------+ + | Ramesh Johnson MD | PCP | Unavailable | + +------+ + Reason for Visit + + + | Reason | Comments | + + + | Shoulder pain | L claudeudler | + + + Office Visit - E/M Services (Routine) +--------+--------+ + + + + | Status | Reason | Specialty | Diagnoses / | Referred By | Referred To | | | | | Procedures | Contact | Contact | +--------+--------+ + + + + | Closed | | Orthopedics | Diagnoses | No | Orftracey, | | | | | Left | Referring | MD Misael | | | | | shoulder | Provider Per | [address] | | | | | pain | Patient NO | [address] | | | | | | REFERRING | [address] [place], | | | | | | PROVIDER PER | [place] | | | | | | [place] | [address] | | | | | | | Phone: | | | | | | | [phone] | | | | | | | Fax: | | | | | | | [phone] | +--------+--------+ + + + + Encounter Details +--------+---------+ + + + | Date | Type | Department | Care Team | Description | +--------+---------+ + + + | 04/27/ | Office | Orthopaedics at | Misael Myers MD | Shoulder pain | | 2011 | Visit | [facility] [address] | [address] | (Primary Dx); | | | | Ave Mailcode: CH12A | [address] | Rotator cuff | | | | [facility] | [place], [place] | tendinitis; | | | | and | [address] | Osteoarthrosis, | | | | Floor [place], [place] | [phone] | unspecified whether | | | | [address] | | generalized or | | | | [phone] | | localized, shoulder | | | | | | region; Bicipital | | | | | | tenosynovitis | +--------+---------+ + + + Social History [...] Weight | 70.3 kg (155 lb) | 04/28/2011 10:41 AM | | | | | PDT | | + + + + + | Height | 172.7 cm (5' 8") | 04/28/2011 10:41 AM | | | | | PDT | | + + + + + | Body Mass Index | 23.57 | 04/28/2011 10:41 AM | | | | | PDT | | + + + + + documented in this encounter Progress Notes Lena Rain, PT - 04/29/2011 4:46 PM PDT Addended by: LENA RAIN on: 04/29/2011 04:46 PM Modules accepted: Orders ena Rain, PT - 04/29/2011 4:34 PM PDTKevon Welch 70 yrs, Male, 1940 PCP: RAMESH JOHNSON Ref: NO REFERRING PROVIDER PER PATIENT, Primary Ins.: ODS MEDI Pt seen briefly [facility] by PT per Dr. Acevedo request: Not charged S: Pt undergoing PT at clinic in [place] 200 miles from here; has been seen [...] not until he is finished traveling (early 2011) O: per MD: + partial thickness RC [...] Full assessment at next PT appt scheduled 4/2/12 to discuss pt's concerns and modify RX as appropriate LENA RAIN PT [facility] [address] Mailcode: Ch12a [facility], [address] [place] [address] Misael Vega MD - 04/28/2011 11:09 AM PDTThis patient returns for follow-up of left rotator cuff tendinitis. documented in this enco unter Plan of Treatment Not on filedocumented as of this encounter Visit Diagnoses + + | Diagnosis | + + | Shoulder pain - Primary Pain in joint, shoulder region | + + | Rotator cuff tendinitis Disorders of bursae and tendons in shoulder region, | | unspecified | + + | Osteoarthrosis, unspecified whether generalized or localized, shoulder region | + + | Bicipital tenosynovitis | + + documented in this encounter
--- OUTSIDE RECORDS SUMMARY | ~2018-07-16 | XMS | Encounter Summary ---
Demographics + + + | Address | [address] | | | [place] [address] | + + + | Home Phone [...] [place] | | | | | [address] | | + + + + + Care Team Providers + +------+ + | Care Audograph Operator Name | Role | Phone | [...] | | | | | THERAPY | [place], [place] | for Health | | | | | REFERRAL | [address] | and Healing, | | | | | | | 1st floor | | | | | | | [place], [place] | | | | | | | [address] | | | | | | | Phone: | | | | | | | [phone] | | | | | | | Fax: | | | | | | | [phone] | +--------+--------+ + + + + Encounter [...] | | | [address] | [place], [place] | | | | | Mailcode: [facility] | [address] | | | | | [facility] | | | | | | and Healing, 1st | | | | | | floor [place], [place] | | | | | | [address] | | | | | | [phone] | | | +--------+---------+ + + + [...] Washington, PT - 08/11/2013 4:09 PM PDT [id number] KEVON WELCH Date of : 1940 Start of care: 05/19/2013 Date of onset: 03/21/2013 Referring/Attending Practitioner: Misael Myers Primary/Referral Diagnosis/ICD-9: Shoulder pain, right (primary encounter diagnosis) Insurance: Payor: [employer] MEDICARE Plan: [employer] MEDICARE Product Type: P PO Service period from: 05/19/2013 to - Number visits used/authorized: [facility] PHYSICAL THERAPY TREATMENT - ORTHO SUBJECTIVE: Current: [...] Right 07/20/2013 Right 08/11/2013 Flexion 141 155 [id number]* [id number] Pre 125* Post 140 Abduction 146 150 [id number]* [id number] Pre 95* Post 132 ER at 90 [...] program as pt lives in [facility] for posterior do minant shoulder strength Frequency/Duration: Follow up prn due to pt living in [facility] Treatment began: 0407 pm Treatment ended: 0452 pm This note is to serve as the discharge summary if Kevon fails to attend further Physical Th erapy appointments or contact the therapist regarding any change in their status. Alise [place], PT [facility] AND [facility] THERAPY [address] Mailcode: [place] [address] documented in this encounter Plan of Treatment Not on filedocumented as of this encounter Procedures + +--------+ + + + | Procedure Name | Priori | Date/Time | Associated Diagnosis | Comments | | | ty | | | | + +--------+ + + + | DE MANUAL THER | Routin | 08/11/2013 | Shoulder pain, | | | TECH,1+REGIONS,EA 15 | e | 5:16 PM | right | | | MIN | | PDT | | | + +--------+ + + + | DE THERAPEUTIC | Routin | 08/11/2013 | Shoulder [...]
--- OUTSIDE RECORDS SUMMARY | ~2018-07-16 | XMS | Encounter Summary ---
Demographics + + + | Address | [address] | | | [place] [address] | + + + | Home Phone [...] [place] | | | | | [address] | | + + + + + Care Team Providers + +------+ + | Care Director Of Career Services Name | Role | Phone | [...] | | | | | Procedures | [facility] | Mailcode: | | | | | PHYSICAL | Rd | [facility] | | | | | THERAPY | [place], [place] | for Health | | | | | REFERRAL | [address] | and Healing, | | | | | | | 1st floor | | | | | | | [place], [place] | | | | | | | [address] | | | | | | | Phone: | | | | | | | [phone] | | | | | | | Fax: | | | | | | | [phone] | +--------+--------+ + + + + Encounter Details +--------+---------+ + + + | Date | Type | Department | Care Team | Description | +--------+---------+ + + + | 06/23/ | Office | [place] [facility] | Rupesh, | Shoulder pain | | 2013 | Visit | Therapy Services at | Alise, PT [address] | (Primary Dx) | | | | [facility] | [address] | | | | | [address] | [place], [place] | | | | | Mailcode: CH3P | [address] | | | | | [facility] | | | | | | and Ned, 1st | | | | | | floor [place], [place] | | | | | | [address] | | | | | | [phone] | | | +--------+---------+ + + + [...] encounter Progress Notes Alise Washington PT - 06/23/2013 8:58 AM PDT [id number] KEVON WELCH Date of : 1940 Start of care: 05/19/2013 Date of onset: 03/21/2013 Referring/Attending Practitioner: Misael Myers Primary/Referral Diagnosis/ICD-9: Shoulder pain (primary encounter diagnosis) Insurance: Payor: [employer] ODS MEDICARE Plan: [employer] ODS MEDICARE Product Type: P PO Service period from: 05/19/2013 to - Number visits used/authorized: 2/- [facility] PHYSICAL THERAPY TREATMENT - ORTHO SUBJECTIVE: Current: Shoulder is improving. Schedule has been very busy, did exercises an average of 2 -3x/wk. Has not been home for 2 weeks and is preparing to travel for 3.5 weeks. Has been t aking ibuprofen 2 tablets 3x/day. Continues to have pain with reaching arm behind back or r aising arm straight up in air forward or to side. Avoids or will move slowly. Heats should er in shower. History of Presenting Problem: Kevon Welch is [...] 4-*/5 4+/5 Rhomboids Middle Trapezius Lower Trapezius Special tests: Right Left Comments Neers + - Elfego Julio + - Cross body adduction Speeds Empty can + - Drop arm - - External rotation lag sign Internal rotation lag sign Apprehension Apprehension reduction AC compression Clunk O'Briens + + Palpation: Tenderness with palpation of infraspinatus insertion, supraspinatus muscle belly and insert ion Manual therapy, 35 minutes: CFM infraspinatus and supraspinatus insertion Posterior GH mobilization, grade II Inferior GH mobilization, grade II Scapular mobility - wnl in all planes passive range of motion all planes Therapeutic exercise, 10 minutes: IR series behind back: extension, IR, up back with cane, 10x each Verbally reviewed home exercise program, provided more difficulty bands, and education on progression while traveling home exercise program as of 06/23/2013 Sidelying shoulder ER with 2# Prone horizontal abduction Rows with green band Extension rows with green band IR series behind back Education on heat and ice ASSESSMENT: Kevon is a 72 year old male who presents with right shoulder pain for 2 months duration fol lowing carrying chair up flight of stairs. Pt demonstrates functional range of motion in al l planes this date without pain. Pt with improved IR behind back following active range of motion series with cane. Pt with fair compliance with home exercise program due to work and travel demands. Pt verbalizes understanding of importance of home exercise program for dec reased shoulder pain. Ekvon to continue with home exercise program for posterior shoulder s trength while traveling and follow up prn. Kevon requires services that can be safely and e ffectively performed only by a qualified therapist to address the following problems and ach ieve the following goals: DISCHARGE FUNCTIONAL GOALS, discussed with Kevon due in 6 weeks: Pt will demonstrate 160 deg shoulder flexion in order to reach high shelf Pt will report washing back with 0/10 pain Pt will be independent with home exercise program 5/7 days PLAN OF CARE: Focus on home exercise program as pt lives in [facility], [place] for posterior do minant shoulder strength Frequency/Duration: Follow up prn due to pt living in [facility] [place] and traveling to [facility] for 4 weeks Treatment began: 899 Treatment ended: 944 This note is to serve as the discharge summary if Kevon fails to attend further Physical Th erapy appointments or contact the therapist regarding any change in their status. Alise [place], Pt [facility] AND HAND THERAPY [address] Mailcode: [place] [address] documented in this encounter Plan of Treatment Not on filedocumented as of this encounter Procedures + +--------+ + + + | Procedure Name | Priori | Date/Time | Associated Diagnosis | Comments | | | ty | | | | + +--------+ + + + | MD MANUAL THER | Routin | 06/23/2013 | Shoulder pain | | | TECH,1+REGIONS,EA 15 | e | 10:22 AM | | | | MIN | | PDT | | | + +--------+ + + + | MD THERAPEUTIC | Routin | 06/23/2013 | Shoulder pain | | | EXERCISES | e | 10:22 AM | | | | | | PDT | | | + +--------+ + + + documented in this encounter Visit Diagnoses + + | Diagnosis | + + | Shoulder pain - Primary Pain in joint, shoulder region | + + documented in this encounter
--- OUTSIDE RECORDS SUMMARY | ~2018-07-16 | XMS | Encounter Summary ---
Demographics + + + | Address | [address] | | | [place] [address] | + + + | Home Phone [...] [place] | | | | | [address] | | + + + + + Care Team Providers + +------+ + | Care Skeiner Name | Role | Phone | + +------+ + | Doyle Johnson MD | PCP | Unavailable | + +------+ + Encounter Details +--------+ + + + + | Date | Type | Department | Care Team | Description | +--------+ + + + + | 06/29/ | Anesthesia | Preoperative | Lida Houser, | | | 2011 | Event | [facility] at | ANP [address] | | | | | [facility] 4th Floor [address] | | | | | [address] | [place], [place] | | | | | Code: [address] | [address] | | | | | for Health and | [phone] | | | | | Healing,4th Floor | | | | | | [place], [place] | | | | | | [address] | | | | | | [phone] | | | +--------+ + + + [...]
--- OUTSIDE RECORDS SUMMARY | ~2018-07-16 | XMS | Encounter Summary ---
Demographics + + + | Address | [address] | | | [place] [address] | + + + | Home Phone [...] + + + | Author | [facility] | + + + | Organization | [facility] | + + + | Address | Unknown | + + + | Phone | Unavailable | + + + Support + + + + + | Name | Relationship | Address | Phone | + + + + + | Elizabeth Welch | ECON | [address] | | | | | [place] | | | | | [address] | | + + + + + Care Team Providers + +------+ + | Care Corporate Securities Research Analyst Name | Role | Phone | [...] | | | | | PHYSICAL | [facility] [place] | [facility] | | | | | THERAPY | [address] | for Health | | | | | REFERRAL | Phone: | and Healing, | | | | | | [phone] | 1st floor | | | | | | Fax: | [place], [place] | | | | | | [phone] | [address] | | | | | | | Phone: | | | | | | | [phone] | | | | | | | Fax: | | | | | | | [phone] | +--------+--------+ + + + + Encounter [...] Dx) | | | | [facility] | [address] | | | | | [address] | [place], [place] | | | | | Mailcode: CH3P | [address] | | | | | [facility] | | | | | | and Healing, 1st | | | | | | floor [facility] [place] | | | | | | [address] | | | | | | [phone] | | | +--------+---------+ + + + [...] might be different fr om the original. [id number] KEVON WELCH Date of : 1940 Start [...] request that all cancellations be made at [facility] 24 hours in advance by calling [phone]. Our office is open 7am-6pm and there [...] change in their status. LENA RAIN PT [facility] [address] Mailcode: [address], [address] [facility] [address] documented in this e ncounter Plan of Treatment Not on filedocumented as of this encounter Procedures + +--------+ + + + | Procedure Name | Priori | Date/Time | Associated Diagnosis | Comments | | | ty | | | | + +--------+ + + + | [place] MANUAL THER | Routin | 08/20/2011 | Shoulder pain | | | TECH,1+REGIONS,EA 15 | e | 1:04 PM | | | | MIN | | PDT | | | + +--------+ + + + | [place] THERAPEUTIC | Routin | 08/20/2011 | Shoulder [...]
--- OUTSIDE RECORDS SUMMARY | ~2018-07-16 | XMS | Encounter Summary ---
Demographics + + + | Address | [address] | | | [place] [address] | + + + | Home Phone | | + + + | Preferred Language | Unknown | + + + | Marital Status | | + + + | Hinduism Affiliation | NON | + + + [...] [place] | | | | | [address] | | + + + + + Care Team Providers + +------+ + | Care Head Librarian Name | Role | Phone | + [...] | | | | | THERAPY | [place], [place] | for Health | | | | | REFERRAL | [address] | and Healing, | | | | | | | 1st floor | | | | | | | [place], [place] | | | | | | | [address] | | | | | | | Phone: | | | | | | | [phone] | | | | | | | Fax: | | | | | | | [phone] | +--------+--------+ + + + + Encounter Details +--------+---------+ + + + | Date | Type | Department | Care Team | Description | +--------+---------+ + + + | 01/18/ | Office | [facility] | Rupesh, | Shoulder pain, right | | 2013 | Visit | Therapy Services at | Alise, PT [address] | (Primary Dx) | | | | [facility] | [address] | | | | | [address] | [place], [place] | | | | | Mailcode: [facility] | [address] | | | | | [facility] | | | | | | and Healing, 1st | | | | | | floor [place], [place] | | | | | | [address] | | | | | | [phone] | | | +--------+---------+ + + + [...] Washington, PT - 01/18/2014 10:57 AM PST [id number] KEVON WELCH Date of : 1940 Start of care: 05/19/2013 Date of onset: 03/21/2013 Referring/Attending Practitioner: Misael Myers Primary/Referral Diagnosis/ICD-9: Shoulder pain, right (primary encounter diagnosis) Insurance: Payor: [employer] MEDICARE Plan: [employer] MED[employer] Product Type: P PO Service period from: 05/19/2013 to 01/18/2014 Number visits used/authorized: 11/20 [facility] PHYSICAL THERAPY TREATMENT - [...] Right/Left 10/18/2013 Right 01/18/2014 Flexion 141 155 [id number]* [id number] Pre 125* Post 140 145 145/150 156 Abduction 146 150 [id number]* [id number] Pre 95* Post 132 144 140/145 150 [...] end of session. Pt has met his long term care social worker goals. Pt will be discharged to [facility] t home exercise program at this [...] change in their status. Alise [place], PT [facility] REHABIL[facility]ATION SERVICES AND HAND THERAPY [address] Mailcode: [place] [address] documented in this encounter Plan of Treatment Not on filedocumented as of this encounter Procedures + +--------+ + + + | Procedure Name | Priori | Date/Time | Associated Diagnosis | Comments | | | ty | | | | + +--------+ + + + | [place] MANUAL THER | Routin | 01/18/2014 | Shoulder pain, | | | TECH,1+REGIONS,EA 15 | e | 1:58 PM | right | | | MIN | | PST | | | + +--------+ + + + | TN THERAPEUTIC | Routin | 01/18/2014 | Shoulder [...]
--- OUTSIDE RECORDS SUMMARY | ~2018-07-16 | XMS | Encounter Summary ---
Demographics + + + | Address | [address] | | | [place] [address] | + + + | Home Phone [...] [place] | | | | | [address] | | + + + + + Care Team Providers + +------+ + | Care Boilermaker Ship Name | Role | Phone | + [...] | | | | | PHYSICAL | [facility] [place] | [facility] | | | | | THERAPY | [address] | for Health | | | | | REFERRAL | Phone: | and Healing, | | | | | | [phone] | 1st floor | | | | | | Fax: | [place], [place] | | | | | | [phone] | [address] | | | | | | | Phone: | | | | | | | [phone] | | | | | | | Fax: | | | | | | | [phone] | +--------+--------+ + + + + Encounter Details +--------+---------+ + + + | Date | Type | Department | Care Team | Description | +--------+---------+ + + + | 05/28/ | Office | [facility] | Lena Rain, | Shoulder pain | | 2011 | Visit | Therapy Services at | PT [address] | (Primary Dx) | | | | [facility] | [address] | | | | | [address] | [place], [place] | | | | | Mailcode: [facility] | [address] | | | | | [facility] | | | | | | and Healing, 1st | | | | | | floor [facility] [place] | | | | | | [address] | | | | | | [phone] | | | +--------+---------+ + + + [...] might be different fr om the original. [id number] KEVON WELCH Date of : 1940 Start [...] change in their status. LENA RAIN, PT [facility] RE[facility]ABILITATION SERVICES AND HAND THERAPY [address] Mailcode: [address] And [facility], 1st Floor [facility] [address] documented in this e ncounter Plan of Treatment Not on filedocumented as of this encounter Procedures + +--------+ + + + | Procedure Name | Priori | Date/Time | Associated Diagnosis | Comments | | | ty | | | | + +--------+ + + + | MS THERAPEUTIC | Routin | 05/29/2011 | Shoulder pain | | | ACTIVITIES | e | 3:47 PM | | | | | | PDT | | | + +--------+ + + + | MS MANUAL THER | Routin | 05/29/2011 | Shoulder pain | | | TECH,1+REGIONS,EA 15 | e | 3:47 PM | | | | MIN | | PDT | | | + +--------+ + + + | MS THERAPEUTIC | Routin | 05/29/2011 | Shoulder [...]
--- OUTSIDE RECORDS SUMMARY | ~2018-07-16 | XMS | Encounter Summary ---
Demographics + + + | Address | [address] | | | [place] [address] | + + + | Home Phone [...] [place] | | | | | [address] | | + + + + + Care Team Providers + +------+ + | Care Wax Room Supervisor Name | Role | Phone | [...] | | shoulder | Provider Per | [address] | | | | | pain | Patient NO | [address] | | | | | | REFERRING | [address], | | | | | | PROVIDER PER | [place] | | | | | | [place] | [address] | | | | | | | Phone: | | | | | | | [phone] | | | | | | | Fax: | | | | | | | [phone] | +--------+--------+ + + + + Encounter Details +--------+---------+ + + + | Date | Type | Department | Care Team | Description | +--------+---------+ + + + | 03/27/ | Office | Orthopaedics at | Misael Myers MD | Rotator cuff | | 2011 | Visit | [facility] [address] | [address] | tendinitis (Primary | | | | Ave Mailcode: [facility] | [address] | Dx) | | | | [place] for [facility] | [place], [place] | | | | | and [facility], | [address] | | | | | Floor [place], [place] | [phone] | | | | | [address] | | | | | | [phone] | | | +--------+---------+ + + + [...]
--- OUTSIDE RECORDS SUMMARY | ~2018-07-16 | XMS | Encounter Summary ---
Demographics + + + | Address | [address] | | | [place] [address] | + + + | Home Phone [...] [place] | | | | | [address] | | + + + + + Care Team Providers + +------+ + | Care Oven Baker Name | Role | Phone | + [...] | | | | | Procedures | [facility] | Mailcode: | | | | | PHYSICAL | Rd | [facility] | | | | | THERAPY | [place], [place] | for Health | | | | | REFERRAL | [address] | and Healing, | | | | | | | 1st floor | | | | | | | [place], [place] | | | | | | | [address] | | | | | | | Phone: | | | | | | | [phone] | | | | | | | Fax: | | | | | | | [phone] | +--------+--------+ + + + + Encounter [...] [facility] | [address] | | | | | [address] | [place], [place] | | | | | Mailcode: [facility] | [address] | | | | | [facility] | | | | | | and Ned, 1st | | | | | | floor [place], [place] | | | | | | [address] | | | | | | [phone] | | | +--------+---------+ + + + [...] Washington PT - 06/23/2013 8:58 AM PDT [id number] KEVON WELCH Date of : 1940 Start of care: 05/19/2013 Date of onset: 03/21/2013 Referring/Attending Practitioner: Misael Myers Primary/Referral Diagnosis/ICD-9: Shoulder pain (primary encounter diagnosis) Insurance: Payor: [employer] MEDICARE Plan: [employer] MED[employer] Product Type: P PO Service period from: 05/19/2013 to - Number visits used/authorized: 2/- [facility] PHYSICAL THERAPY TREATMENT - ORTHO SUBJECTIVE: Current: [...] exercise program for dec reased shoulder pain. Kevon to continue with home exercise program for [...] home exercise program as pt lives in [facility], [place] for posterior do minant shoulder strength Frequency/Duration: Follow up prn due to pt living in [facility] and traveling to [facility] for 4 weeks Treatment began: 899 Treatment ended: 944 This note is to serve as the discharge summary if Kevon fails to attend further Physical Th erapy appointments or contact the therapist regarding any change in their status. Alise Washington, Pt [facility] RE[facility]ABIL[facility]ATION SERVICES AND HAND THERAPY [address] Mailcode: [place] [address] documented in this encounter Plan of Treatment Not on filedocumented as of this encounter Procedures + +--------+ + + + | Procedure Name | Priori | Date/Time | Associated Diagnosis | Comments | | | ty | | | | + +--------+ + + + | SD MANUAL THER | Routin | 06/23/2013 | Shoulder pain | | | TECH,1+REGIONS,EA 15 | e | 10:22 AM | | | | MIN | | PDT | | | + +--------+ + + + | SD THERAPEUTIC | Routin | 06/23/2013 | Shoulder [...]
--- OUTSIDE RECORDS SUMMARY | ~2018-07-16 | XMS | Encounter Summary ---
Demographics + + + | Address | [address] | | | [place] [address] | + + + | Home Phone | | + + + | Preferred Language | Unknown | + + + | Marital Status | | + + + | Adventist Affiliation | NON | + + + | Race | White | + + + | Ethnic Group | Not or | + + + Author + + + | Author | [facility] | + + + | Organization | [facility] | + + + | Address | Unknown | + + + | Phone | Unavailable | + + + Support + + + + + | Name | Relationship | Address | Phone | + + + + + | Elizabeth Welch | ECON | [address] | | | | | [place] | | | | | [address] | | + + + + + Care Team Providers + +------+ + | Care Compounder Helper Name | Role | Phone | [...] | | shoulder | Provider Per | [address] | | | | | pain | Patient NO | [address] | | | | | | REFERRING | Rd [place], | | | | | | PROVIDER PER | [place] | | | | | | PT | [address] | | | | | | | Phone: | | | | | | | [phone] | | | | | | | Fax: | | | | | | | [phone] | +--------+--------+ + + + + Encounter Details +--------+---------+ + + + | Date | Type | Department | Care Team | Description | +--------+---------+ + + + | 04/27/ | Office | Orthopaedics at | Misael Myers MD | Shoulder pain | | 2011 | Visit | [facility] [address] | [address] | (Primary Dx); | | | | Ave Mailcode: [facility] | [address] | Rotator cuff | | | | [facility] | [place], [place] | tendinitis; | | | | and | [address] | Osteoarthrosis, | | | | Floor [place], [place] | [phone] | unspecified whether | | | | [address] | | generalized or | | | | [phone] | | localized, shoulder | | | [...] S: Pt undergoing PT at clinic in [place] 200 miles from here; has been seen [...] RX as appropriate LENA RAIN PT [facility] [address] Mailcode: [facility], [address] [place] [address] Misael Vega MD - 04/28/2011 11:09 [...]
--- OUTSIDE RECORDS SUMMARY | ~2018-07-16 | XMS | Encounter Summary ---
Demographics + + + | Address | [address] | | | [place] [address] | + + + | Home Phone | | + + + | Preferred Language | Unknown | + + + | Marital Status | | + + + | Restoration Affiliation | NON | + + + | Race | White | + + + | Ethnic Group | Not or | + + + Author + + + | Author | [facility] | + + + | Organization | [facility] | + + + | Address | Unknown | + + + | Phone | Unavailable | + + + Support + + + + + | Name | Relationship | Address | Phone | + + + + + | Elizabeth Welch | ECON | [address] | | | | | [place] | | | | | [address] | | + + + + + Care Team Providers + +------+ + | Care Hand Box Coverer Name | Role | Phone | [...] | | | | | Procedures | [facility] | Mailcode: | | | | | PHYSICAL | Rd | [facility] | | | | | THERAPY | [place], [place] | for Health | | | | | REFERRAL | [address] | and Healing, | | | | | | | 1st floor | | | | | | | [place], [place] | | | | | | | [address] | | | | | | | Phone: | | | | | | | [phone] | | | | | | | Fax: | | | | | | | [phone] | +--------+--------+ + + + + Encounter Details +--------+---------+ + + + | Date | Type | Department | Care Team | Description | +--------+---------+ + + + | 06/23/ | Office | [facility] | Rupesh, | Shoulder pain | | 2013 | Visit | Therapy Services at | Alise, PT [address] | (Primary Dx) | | | | [facility] | [address] | | | | | [address] | [place], [place] | | | | | Mailcode: [facility] | [address] | | | | | [facility] | | | | | | and Ned, 1st | | | | | | floor [place], [place] | | | | | | [address] | | | | | | [phone] | | | +--------+---------+ + + + [...] Washington PT - 06/23/2013 8:58 AM PDT [id number] KEVON WELCH Date of : 1940 Start of care: 05/19/2013 Date of onset: 03/21/2013 Referring/Attending Practitioner: Misael Myers Primary/Referral Diagnosis/ICD-9: Shoulder pain (primary encounter diagnosis) Insurance: Payor: [employer] MEDICARE Plan: [employer] MED[employer] Product Type: P PO Service period from: 05/19/2013 to - Number visits used/authorized: 2/- [facility] PHYSICAL THERAPY TREATMENT - ORTHO SUBJECTIVE: Current: [...] home exercise program as pt lives in [facility], [place] for posterior do minant shoulder strength Frequency/Duration: Follow up prn due to pt living in [facility] and traveling to [facility] for 4 weeks Treatment began: 899 Treatment ended: 944 This note is to serve as the discharge summary if Kevon fails to attend further Physical Th erapy appointments or contact the therapist regarding any change in their status. Alise [place], Pt [facility] REHABIL[facility]ATION SERVICES AND HAND THERAPY [address] Mailcode: [place] [address] documented in this encounter Plan of Treatment Not on filedocumented as of this encounter Procedures + +--------+ + + + | Procedure Name | Priori | Date/Time | Associated Diagnosis | Comments | | | ty | | | | + +--------+ + + + | RI MANUAL THER | Routin | 06/23/2013 | Shoulder pain | | | TECH,1+REGIONS,EA 15 | e | 10:22 AM | | | | MIN | | PDT | | | + +--------+ + + + | [place] THERAPEUTIC | Routin | 06/23/2013 | Shoulder [...]
--- OUTSIDE RECORDS SUMMARY | ~2018-07-16 | XMS | Encounter Summary ---
Demographics + + + | Address | [address] | | | [place] [address] | + + + | Home Phone [...] [place] | | | | | [address] | | + + + + + Care Team Providers + +------+ + | Care High School Foreign Language Teacher Name | Role | Phone | [...] + + | 07/21/ | Telephone | HIMARILYN Sinclair | Maddie Luna, | Other (home pump- | | 2011 | | Pain Center at | CONSULTING IT ARCHITECT [address] | patient initiated) | | | | [facility] | [place], [place] | | | | | [address] | [address] | | | | | Mail Code: [facility] | [phone] | | | | | [facility] | | | | | | and | | | | | | Floor [place], [place] | | | | | | [address] | | | | | | [phone] | | | +--------+ + + + [...]
--- OUTSIDE RECORDS SUMMARY | ~2018-07-16 | XMS | Encounter Summary ---
Demographics + + + | Address | [address] | | | [place] [address] | + + + | Home Phone [...] [place] | | | | | [address] | | + + + + + Care Team Providers + +------+ + | Care Monotype Mechanic Name | Role | Phone | + [...] | | | | PHYSICAL | [facility] [place] | [facility] | | | | | THERAPY | [address] | for Health | | | | | REFERRAL | Phone: | and Healing, | | | | | | [phone] | 1st floor | | | | | | Fax: | [place], [place] | | | | | | [phone] | [address] | | | | | | | Phone: | | | | | | | [phone] | | | | | | | Fax: | | | | | | | [phone] | +--------+--------+ + + + + Encounter Details +--------+---------+ + + + | Date | Type | Department | Care Team | Description | +--------+---------+ + + + | 08/03/ | Office | [facility] | Lena Rain, | Shoulder pain | | 2011 | Visit | Therapy Services at | PT [address] | (Primary Dx) | | | | [facility][Note 3[facility] | [address] | | | | | [address] | [place], [place] | | | | | Mailcode: [facility] | [address] | | | | | [facility] | | | | | | and Healing, 1st | | | | | | floor [facility] [place] | | | | | | [address] | | | | | | [phone] | | | +--------+---------+ + + + [...] encounter Progress Notes Lena Rain, PT - 08/04/2011 1:43 PM PDTFormatting of this note might be different fr om the original. [id number] KEVON WELCH Date of : 1940 Start of care: 07/24/11 Date of onset:07/22/11 Referring/Attending Practitioner: Misael Myers MD . Primary/Referral Diagnosis/ICD-9: Encounter Diagnoses Name Primary? Shoulder pain Yes Insurance: Payor: [employer] MEDIC[employer] Plan: [employer] MED[employer] Product Type: PPO Service period from: 07/24/11-08/23/11 Number visits used/authorized: 2 [facility]: Post-op SHOULDER POST OP DAY #2 S/P Arthroscopic SAD, DCE, labral debridement Subjective: Pt reports that his shoulder pain is better since having stiches out today Pain 0/10 current Has been doing HOME EXERCISE PROGRAM as instructed, not pushing into pain; is also ass isting with PROM with no questions; has been able to achieve 90 degrees PROM with minimal di scomfort Has not been using ice History of Presenting Problem: Kevon Welch is [...] OBJECTIVE: Observation: wearing basic sling correctly, incision intact; ecchymosis noted in medial upp er arm/bicep-improved Posture/alignment: Rounded shoulders, forward head Palpation: mild TTP at incisions, bicep Swelling minimal in L hand compared to none in R Sensation intact to light touch L UE AROM C-spine WFL PROM: FLEX 100* degrees ER: 30* IR to belly ABD to 80* MANUAL THERAPY x15 PROM for SCAPTION, ER, ABD for LLPS 5 min each direction Soft tissue mobilization periscapula, posterior shoulder Grade 1-2 joint mobilization for GH joint for pain relief THERAPEUTIC EXERCISE x20 Treatment consisted of reviewing post operative home [...] roll under arm x 5 min ea Game Ready to L shoulder on low pressure for 15 min ASSESSMENT: Pt tolerated RX well with moderate guarding and complaints of pain; may benefit from use of ice for pain control (pt agreed to try using after exercise sessions and PROM during day as needed to help progress motion) Pt and performing PROM correctly Pt demonstrates moderate stiffness and guarding and would benefit from increasing intensity of stretching but use ice to help reduce discomfort GOALS Compliant with post-op precautions.MET Demonstrate understanding and independence of acute post-op exercises.MET GOALS, Discussed with patient, due in 12-16 weeks: 1. Increase strength of ROTATOR CUFF/ER to 4/5; periscapular mm to 4+/5 2. Demonstrate understanding and independence HOME EXERCISE PROGRAM 3. Increase shoulder AROM to full and painfree 4. Normalize scapulo-humeral kinematics PLAN: Pt to f/u on 08/19/11 for progression to AROM and stretching ex; also teach progression of HOME EXERCISE PROGRAM as he lives 4 hours away and can only return every couple of weeks for F/U Therapeutic exercise, Manual Therapy, Therapeutic Activity, Manual Therapy, Neuromuscular R e-Education, Gait Training, Modalities as needed, Pt. Education, HOME EXERCISE PROGRAM Per protocol. Reinforce precautions. Frequency/Duration: 1x every 2 weeks for 12-16 weeks Treatment began: 1345 Treatment ended: 1420; [id number] for game ready Reviewed cancel/no show policy with patient. Pt voiced understanding. "At times we understand you must cancel. We request that all cancellations be made at [facility] t 24 hours in advance by calling [phone]. Our office is open 7am-6pm and there is a [employer] 24 hours a day. Any appointment [...] change in their status. LENA RAIN PT [facility] RE[facility]IL[facility] AND HAND THERAPY [address] Mailcode: [address] And [facility], [address] [place] [address] documented in this e ncounter Plan of Treatment Not on filedocumented as of this encounter Procedures + +--------+ + + + | Procedure Name | Priori | Date/Time | Associated Diagnosis | Comments | | | ty | | | | + +--------+ + + + | MD MANUAL THER | Routin | 08/05/2011 | Shoulder pain | | | TECH,1+REGIONS,EA 15 | e | 4:04 PM | | | | MIN | | PDT | | | + +--------+ + + + | MD THERAPEUTIC | Routin | 08/05/2011 | Shoulder pain | | | EXERCISES | e | 4:04 PM | | | | | | PDT | | | + +--------+ + + + documented in this encounter Visit Diagnoses + + | Diagnosis | + + | Shoulder pain - Primary Pain in joint, shoulder region | + + documented in this encounter
--- OUTSIDE RECORDS SUMMARY | ~2018-07-16 | XMS | Encounter Summary ---
Demographics + + + | Address | [address] | | | [place] [address] | + + + | Home Phone [...] [place] | | | | | [address] | | + + + + + Care Team Providers + +------+ + | Care Human Resources Coordinator Name | Role | Phone | [...] | | | | | Procedures | [facility] | Mailcode: | | | | | PHYSICAL | Rd | [facility] | | | | | THERAPY | [place], [place] | for Health | | | | | REFERRAL | [address] | and Healing, | | | | | | | 1st floor | | | | | | | [place], [place] | | | | | | | [address] | | | | | | | Phone: | | | | | | | [phone] | | | | | | | Fax: | | | | | | | [phone] | +--------+--------+ + + + + Encounter [...] | | | [facility] | [address] | | | | | [address] | [place], [place] | | | | | Mailcode: [facility] | [address] | | | | | [facility] | | | | | | and Healing, 1st | | | | | | floor [place], [place] | | | | | | [address] | | | | | | [phone] | | | +--------+---------+ + + + [...] might be different from the o saul. [id number] KEVON WELCH Date of : 1940 Start of care: 05/19/2013 Date of onset: 03/21/2013 Referring/Attending Practitioner: Misael Myers Primary/Referral Diagnosis/ICD-9: Shoulder pain, right (primary encounter diagnosis) Insurance: Payor: [employer] Plan: [employer] Product Type: P PO Service period from: 05/19/2013 to 01/18/2014 Number visits used/authorized: 07/21 [facility] PHYSICAL THERAPY TREATMENT - ORTHO SUBJECTIVE: [...] Right 07/20/2013 Right 08/11/2013 Flexion 141 155 [id number]* [id number] Pre 125* Post 140 Abduction 146 150 [id number]* [id number] Pre 95* Post 132 ER at 90 [...] home exercise program as pt lives in [facility], [place] for posterior do minant shoulder strength Frequency/Duration: Follow up prn due to pt living in [facility] Treatment began: 1100 am Treatment ended: [...] in the student's note. Alise [place], PT [facility] RE[facility]IL[facility] SERVICES AND HAND THERAPY [address] Mailcode: [place] [address] documented in this encounter Plan of Treatment Not on filedocumented as of this encounter Procedures + +--------+ + + + | Procedure Name | Priori | Date/Time | Associated Diagnosis | Comments | | | ty | | | | + +--------+ + + + | [place] MANUAL THER | Routin | 08/30/2013 | Shoulder pain, | | | TECH,1+REGIONS,EA 15 | e | 1:58 PM | right | | | MIN | | PDT | | | + +--------+ + + + | [place] THERAPEUTIC | Routin | 08/30/2013 | Shoulder [...]
--- OUTSIDE RECORDS SUMMARY | ~2018-07-16 | XMS | Clinical Summary ---
Demographics + + + | Address | [address] | | | [place] [address] | + + + | Home Phone | | + + + | Preferred Language | Unknown | + + + | Marital Status | | + + + | Methodist Affiliation | Unknown | + + + | Race | Unknown | + + + | Ethnic Group | Unknown | + + + Author + + + | Author | [facility] | + + + | Organization | [facility] | + + + | Address | [...] Team Providers + +------+ + | Care Part Time Name | Role | Phone | + [...] | MA - GENERIC | MA-GEN | [id number] | Medica | | | | | [...] | | al/Fam | | 1941 | [phone] | [place] | | | lyla | | | [phone] | [address] | + +--------+ +--------+ + +
--- OUTSIDE RECORDS SUMMARY | ~2018-07-16 | XMS | Encounter Summary ---
Demographics + + + | Address | [address] | | | [place] [address] | + + + | Home Phone | | + + + | Preferred Language | Unknown | + + + | Marital Status | | + + + | Latter Day Affiliation | NON | + + + [...] [place] | | | | | [address] | | + + + + + Care Team Providers + +------+ + | Care Sand Mill Grinder Name | Role | Phone | + +------+ + | Doyle Johnson MD | PCP | Unavailable | + +------+ + Encounter Details +--------+ + + + + | Date | Type | Department | Care Team | Description | +--------+ + + + + | 07/21/ | Telephone | Orthopaedics at | Misael Myers MD | | | 2011 | | [facility] [address] | [address] [facility] | | | | | [place] Mailcode: CH12A | [address] | | | | | [place] for [facility] | [place], [place] | | | | | and | [address] | | | | | Floor [place], [place] | [phone] | | | | | [address] | | | | | | [phone] | | | +--------+ + + + [...]
--- OUTSIDE RECORDS SUMMARY | ~2018-07-16 | XMS | Encounter Summary ---
Demographics + + + | Address | [address] | | | [place] [address] | + + + | Home Phone | | + + + | Preferred Language | Unknown | + + + | Marital Status | | + + + | Zoroastrianism Affiliation | NON | + + + [...] [place] | | | | | [address] | | + + + + + Care Team Providers + +------+ + | Care Steel Checker Name | Role | Phone | + [...] | | sprain | REFERRING | [address], | | | | | Osteoarthros | PROVIDER PER | [place] | | | | | [place], | [place] | [address] | | | | | unspecified | | Phone: | | | | | whether | | [phone] | | | | | generalized | | Fax: | | | | | or | | [phone] | | | | | localized, | [...] | | | | | | | DIRECTOR OF WOMEN'S SERVICES | | | | | | | [place] SHLDR | | | | | | | ARTHROSCOP,P | | | | | | | ART | | | | | | | ACROMIOPLAS | | | | | | | W/CORACOACRO | | | | | | | M [place] SHLDR | | | | | | | ARTHROSCOP,S | | | | | | | URG,DIS | | | | | | | CLAVICULECTO | | | | | | | MY [place] | | | | | | [...] | | | Ave Mailcode: CH12A | [place], [place] | | | | | [facility] | [address] | | | | | and [facility] | [phone] | | | | | Floor [place], [place] | | | | | | [address] | | | | | | [phone] | | | +--------+---------+ + + + [...]
--- OUTSIDE RECORDS SUMMARY | ~2018-07-16 | XMS | Encounter Summary ---
Demographics + + + | Address | [address] | | | [place] [address] | + + + | Home Phone | | + + + | Preferred Language | Unknown | + + + | Marital Status | | + + + | Catholic Affiliation | NON | + + [...] [place] | | | | | [address] | | + + + + + Care Team Providers + +------+ + | Care Machine Tool Dresser Name | Role | Phone | + +------+ + | Doyle Johnson MD | PCP | Unavailable | + +------+ + Reason for Visit + + + | Reason | Comments | + + + | Follow-up visit | | + + + Office Visit - E/M Services (Routine) +--------+--------+ + + + + | Status | Reason | Specialty | Diagnoses / | Referred By | Referred To | | | | | Procedures | Contact | Contact | +--------+--------+ + + + + | Closed | | Orthopedics | Diagnoses | No | Orfaly, | | | | | Left | Referring | MD Misael | | | | | shoulder | Provider Per | [address] | | | | | pain | Patient NO | [address] | | | | | | REFERRING | [address], | | | | | | PROVIDER PER | [place] | | | | | | [place] | [address] | | | | | | | Phone: | | | | | | | [phone] | | | | | | | Fax: | | | | | | | [phone] | +--------+--------+ + + + + Encounter Details +--------+---------+ + + + | Date | Type | Department | Care Team | Description | +--------+---------+ + + + | 06/29/ | Office | Orthopaedics at | Misael Myers MD | Shoulder pain | | 2011 | Visit | [facility] [address] | [address] | (Primary Dx) | | | | Ave Mailcode: CH12A | [address] | | | | | [place] for [facility] | [place], [place] | | | | | and , | [address] | | | | | Floor [place], [place] | [phone] | | | | | [address] | | | | | | [phone] | | | +--------+---------+ + + + [...] Weight | 70.3 kg (155 lb) | 06/30/2011 10:35 AM | | | | | PDT | | + + + + + | Height | 172.7 cm (5' 8") | 06/30/2011 10:35 AM | | | | | PDT | | + + + + + | Body Mass Index | 23.57 | 06/30/2011 10:35 AM | | | | | PDT | | + + + + + documented in this encounter Progress Notes Misael Myers MD - 08/03/2011 10:25 PM PDTThis patient returns for follow-up of left shou lder pain. He continues to have significant pain and limitatons in activities of daily livin g. Telles' impingement sign is positive, Neer's sign is positive and Speed's test is positi ve. He has pain and tenderness to palpation over the acromioclavicular joint. The relative risk and benefits of conservative and operative treatment options were reviewe d in detail and the patient's questions were answered. A PARQ session was held in which we d iscussed the risks, benefits, and all surgical and non-surgical alternatives to this surgery . The patient was informed that the risks include but are not limited to , infection, d amage to nerves, vessels, bone, tendons, cartilage, muscle, and post-operative stiffness. T here may be need for further surgery and no surgery has a guarantee of success for any state d goals. The patient had an opportunity to have all of his questions answered to help under stand the procedure and postoperative course. The patient expressed an interest in proceedi ng with surgery in the form of an arthroscopic subacromial decompression, distal clavicle re section and possible biceps tenodesis. documented in this encounter Plan of Treatment Not on filedocumented as of this encounter Visit Diagnoses + + | Diagnosis | + + | Shoulder pain - Primary Pain in joint, shoulder region | + + documented in this encounter
--- OUTSIDE RECORDS SUMMARY | ~2018-07-16 | XMS | Encounter Summary ---
Demographics + + + | Address | [address] | | | [place] [address] | + + + | Home Phone | | + + + | Preferred Language | Unknown | + + + | Marital Status | | + + + | Religion Affiliation | NON | + + + | Race | White | + + + | Ethnic Group | Not or | + + + Author + + + | Author | [facility] | + + + | Organization | [facility] | + + + | Address | Unknown | + + + | Phone | Unavailable | + + + Support + + + + + | Name | Relationship | Address | Phone | + + + + + | Elizabeth Welch | ECON | [address] | | | | | [place] | | | | | [address] | | + + + + + Care Team Providers + +------+ + | Care Commissioner Conservation Of Resources Name | Role | Phone | + [...] | | | | | Procedures | [facility] | Mailcode: | | | | | PHYSICAL | Rd | [facility] | | | | | THERAPY | [place], [place] | for Health | | | | | REFERRAL | [address] | and Healing, | | | | | | | 1st floor | | | | | | | [place], [place] | | | | | | | [address] | | | | | | | Phone: | | | | | | | [phone] | | | | | | | Fax: | | | | | | | [phone] | +--------+--------+ + + + + Encounter Details +--------+---------+ + + + | Date | Type | Department | Care Team | Description | +--------+---------+ + + + | 06/23/ | Office | [facility] | Rupesh, | Shoulder pain | | 2013 | Visit | Therapy Services at | Alise, PT [address] | (Primary Dx) | | | | [facility] | [address] | | | | | [address] | [place], [place] | | | | | Mailcode: CH3P | [address] | | | | | [facility] | | | | | | and Ned, 1st | | | | | | floor [place], [place] | | | | | | [address] | | | | | | [phone] | | | +--------+---------+ + + + [...] [place] PT - 06/23/2013 8:58 AM PDT [id number] KEVON [place] Date of : 1940 Start of care: 05/19/2013 Date of onset: 03/21/2013 Referring/Attending Practitioner: Misael Myers Primary/Referral Diagnosis/ICD-9: Shoulder pain (primary encounter diagnosis) Insurance: Payor: [employer] [place] MEDICARE Plan: [employer] ODS MEDICARE Product Type: P PO Service period from: 05/19/2013 to - Number visits used/authorized: 2/- [facility] PHYSICAL THERAPY TREATMENT - ORTHO SUBJECTIVE: [...] home exercise program as pt lives in [facility], [place] for posterior do minant shoulder strength Frequency/Duration: Follow up prn due to pt living in [facility] and traveling to [facility] for 4 weeks Treatment began: 899 Treatment ended: 944 This note is to serve as the discharge summary if Kevon fails to attend further Physical Th erapy appointments or contact the therapist regarding any change in their status. Alise [place], Pt [facility] REHABILITATION SERVICES AND HAND THERAPY [address] Mailcode: [place] [address] documented in this encounter Plan of Treatment Not on filedocumented as of this encounter Procedures + +--------+ + + + | Procedure Name | Priori | Date/Time | Associated Diagnosis | Comments | | | ty | | | | + +--------+ + + + | [place] MANUAL THER | Routin | 06/23/2013 | Shoulder pain | | | TECH,1+REGIONS,EA 15 | e | 10:22 AM | | | | MIN | | PDT | | | + +--------+ + + + | [place] THERAPEUTIC | Routin | 06/23/2013 | Shoulder [...]
--- OUTSIDE RECORDS SUMMARY | ~2018-07-16 | XMS | Encounter Summary ---
Demographics + + + | Address | [address] | | | [place] [address] | + + + | Home Phone [...] [place] | | | | | [address] | | + + + + + Care Team Providers + +------+ + | Care Procurement Director Name | Role | Phone | [...] | | | | | Procedures | [facility] | Mailcode: | | | | | PHYSICAL | Rd | [facility] | | | | | THERAPY | [place], [place] | for Health | | | | | REFERRAL | [address] | and Healing, | | | | | | | 1st floor | | | | | | | [place], [place] | | | | | | | [address] | | | | | | | Phone: | | | | | | | [phone] | | | | | | | Fax: | | | | | | | [phone] | +--------+--------+ + + + + Encounter [...] (Primary Dx) | | | | [facility] | [address] | | | | | [address] | [place], [place] | | | | | Mailcode: [facility] | [address] | | | | | [facility] | | | | | | and Healing, 1st | | | | | | floor [place], [place] | | | | | | [address] | | | | | | [phone] | | | +--------+---------+ + + + [...] [place], PT - 11/16/2013 11:25 AM PDT [id number] KEVON WELCH Date of : 1940 Start of care: 05/19/2013 Date of onset: 03/21/2013 Referring/Attending Practitioner: Misael Myers Primary/Referral Diagnosis/ICD-9: Shoulder pain, right (primary encounter diagnosis) Insurance: Payor: [employer] MEDICARE Plan: [employer] MED[employer] Product Type: P PO Service period from: 05/19/2013 to 01/18/2014 Number visits used/authorized: 10/21 [facility] PHYSICAL THERAPY TREATMENT [...] Right 09/22 Right/Left 10/18/2013 Flexion 141 155 [id number]* [id number] Pre 125* Post 140 145 145/150 Abduction 146 150 [id number]* [id number] Pre 95* Post 132 144 140/145 ER [...] home exercise program as pt lives in [place], [place] for posterior do minant shoulder strength Frequency/Duration: Follow up prn due to pt living in [facility], [place] Treatment began: 1125 am Treatment ended: 1210 pm This note is to serve as the discharge summary if Kevon fails to attend further Physical Th erapy appointments or contact the therapist regarding any change in their status. Alise [place], PT [facility] REHABILITATION SERVICES AND HAND THERAPY [address] [place] Mailcode: [place] [address] documented in this encounter Plan of Treatment Not on filedocumented as of this encounter Procedures + +--------+ + + + | Procedure Name | Priori | Date/Time | Associated Diagnosis | Comments | | | ty | | | | + +--------+ + + + | [place] MANUAL THER | Routin | 11/16/2013 | Shoulder pain, | | | TECH,1+REGIONS,EA 15 | e | 12:50 PM | right | | | MIN | | PDT | | | + +--------+ + + + | [place] THERAPEUTIC | Routin | 11/16/2013 | Shoulder [...]
--- OUTSIDE RECORDS SUMMARY | ~2018-07-16 | XMS | Encounter Summary ---
Demographics + + + | Address | [address] | | | [place] [address] | + + + | Home Phone [...] [place] | | | | | [address] | | + + + + + Care Team Providers + +------+ + | Care Certified Personal Trainer Name | Role | Phone | + [...] | | | | | REFERRAL | [address] | and Healing, | | | | | | Phone: | 1st floor | | | | | | [phone] | [facility] [place] | | | | | | Fax: | [address] | | | | | | [phone] | Phone: | | | | | | | [phone] | | | | | | | Fax: | | | | | | | [phone] | +--------+--------+ + + + + Encounter Details +--------+---------+ + + + | Date | Type | Department | Care Team | Description | +--------+---------+ + + + | 10/29/ | Office | [facility] Physical | Lena Rain, | Herniated lumbar | | 2011 | Visit | Therapy Services at | PT [address] | intervertebral disc; | | | | [facility] | [address] | 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 [id number] KEVON WELCH Date of : 1940 Start of care: 10/09/2011 Date of onset: 09/10/11 Referring/Attending Practitioner: Alcira Bocanegra PA . Primary/Referral Diagnosis/ICD-9: 722.10H Herniated lumbar intervertebral disc Insurance: Payor: ODS MEDICARE Plan: ODS MEDICARE Product Type: PPO Service period from: 10/09/2011 to: 11/08/11 Number visits used/authorized: 6/ Neurologist: Dr. Lyles [facility] [address] [place] [address] (Office) [facility] PHYSICAL THERAPY [...] ago. 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 LENA RAIN PT [facility] REHABILITATION SERVICES AND HAND THERAPY [address] Mailcode: [address], [address] [place] [address] documented in this e ncounter Plan of Treatment Not on filedocumented as of this encounter Procedures + +--------+ + + + | Procedure Name | Priori | Date/Time | Associated Diagnosis | Comments | | | ty | | | | + +--------+ + + + | [place] THERAPEUTIC | Routin | 10/30/2011 | Herniated [...] + | [place] THERAPEUTIC | Routin | 10/30/2011 | Herniated [...]
--- OUTSIDE RECORDS SUMMARY | ~2018-07-16 | XMS | Encounter Summary ---
Demographics + + + | Address | [address] | | | [place] [address] | + + + | Home Phone | | + + + | Preferred Language | Unknown | + + + | Marital Status | | + + + | Sikh Affiliation | NON | + + + [...] [place] | | | | | [address] | | + + + + + Care Team Providers + +------+ + | Care Garment Sewer Hand Name | Role | Phone | [...] | | | | | THERAPY | [facility] [place] | for Health | | | | | REFERRAL | [address] | and Healing, | | | | | | Phone: | 1st floor | | | | | | [phone] | [place], [place] | | | | | | Fax: | [address] | | | | | | [phone] | Phone: | | | | | | | [phone] | | | | | | | Fax: | | | | | | | [phone] | +--------+--------+ + + + + Encounter Details +--------+---------+ + + + | Date | Type | Department | Care Team | Description | +--------+---------+ + + + | 11/02/ | Office | [facility] | Lena Rain, | Shoulder pain | | 2011 | Visit | Therapy Services at | PT [address] | (Primary Dx) | | | | [facility] | [address] | | | | | [address] | [facility] [place] | | | | | Mailcode: CH3P | [address] | | | | | [facility] | | | | | | and Healing, 1st | | | | | | floor [place], [place] | | | | | | [address] | | | | | | [phone] | | | +--------+---------+ + + + [...] might be different fr om the original. [id number] KEVON WELCH Date of : 1940 Start of care: 07/24/11 Date of onset:07/22/11 Referring/Attending Practitioner: Misael Myers MD . Primary/Referral Diagnosis/ICD-9: Encounter Diagnoses Name Primary? Shoulder pain Yes Insurance: Payor: [employer] MEDICARE Plan: ODS MEDICARE Product Type: PPO Service period from: 08/24/11-11/22/11 Number visits used/authorized: 7 [facility] PHYSICAL THERAPY: Post-op SHOULDER PO week S/P Arthroscopic SAD, DCE, labral debridement Subjective: Pt reports that his shoulder pain is mostly resolved Has some residual biceps pain in the anterior shoulder, as well as pain at end range FISCAL SERVICES DIRECTOR AL ROTATION States he has been doing [...] UE improved [facility] still working on [...] as 24 hours in advance by calling [phone]. Our office is open 7am-6pm and there is a [place] ssage line 24 hours a day. Any [...] in their status. LENA RAIN PT OCS [facility] REHABILITATION SERVICES AND HAND THERAPY [address] Mailcode: [address] And [facility], [address] [place] [address] documented in this e ncounter Plan of Treatment Not on filedocumented as of this encounter Procedures + +--------+ + + + | Procedure Name | Priori | Date/Time | Associated Diagnosis | Comments | | | ty | | | | + +--------+ + + + | [place] MANUAL THER | Routin | 11/03/2011 | Shoulder pain | | | TECH,1+REGIONS,EA 15 | e | 12:22 PM | | | | MIN | | PDT | | | + +--------+ + + + | [place] THERAPEUTIC | Routin | 11/03/2011 | Shoulder [...]
--- OUTSIDE RECORDS SUMMARY | ~2018-07-16 | XMS | Encounter Summary ---
Demographics + + + | Address | [address] | | | [place] [address] | + + + | Home Phone [...] [place] | | | | | [address] | | + + + + + Care Team Providers + +------+ + | Care Commercial Lines Underwriter Name | Role | Phone | + [...] | | | | | REFERRAL | [address] | and Healing, | | | | | | Phone: | 1st floor | | | | | | [phone] | [place], [place] | | | | | | Fax: | [address] | | | | | | [phone] | Phone: | | | | | | | [phone] | | | | | | | Fax: | | | | | | | [phone] | +--------+--------+ + + + + Encounter Details +--------+---------+ + + + | Date | Type | Department | Care Team | Description | +--------+---------+ + + + | 11/02/ | Office | [facility] | Lena Rain, | Shoulder pain | | 2011 | Visit | Therapy Services at | PT [address] | (Primary Dx) | | | | [facility] | [address] | | | | | [address] | [facility] [place] | | | | | Mailcode: CH3P | [address] | | | | | [facility] | | | | | | and Healing, 1st | | | | | | floor [place], [place] | | | | | | [address] | | | | | | [phone] | | | +--------+---------+ + + + [...] might be different fr om the original. [id number] KEVON WELCH Date of : 1940 Start of care: 07/24/11 Date of onset:07/22/11 Referring/Attending Practitioner: Misael Myers MD . Primary/Referral Diagnosis/ICD-9: Encounter Diagnoses Name Primary? Shoulder pain Yes Insurance: Payor: [employer] MEDICARE Plan: ODS MEDICARE Product Type: PPO Service period from: 08/24/11-11/22/11 Number visits used/authorized: 7 [facility] PHYSICAL THERAPY: Post-op SHOULDER PO week S/P Arthroscopic SAD, DCE, labral debridement Subjective: Pt reports that his shoulder pain is mostly resolved Has some residual biceps pain in the anterior shoulder, as well as pain at end range EDUCATION SPEC AL ROTATION States he has been doing [...] UE [facility] still working on [...] as 24 hours in advance by calling [phone]. Our office is open 7am-6pm and there is a [place] ssage line 24 hours a day. Any [...] in their status. LENA RAIN PT OCS [facility] REHABIL[facility]ATION SERVICES AND HAND THERAPY [address] Mailcode: [address] [facility], [address] [place] [phone] documented in this e ncounter Plan of Treatment Not on filedocumented as of this encounter Procedures + +--------+ + + + | Procedure Name | Priori | Date/Time | Associated Diagnosis | Comments | | | ty | | | | + +--------+ + + + | [place] MANUAL THER | Routin | 11/03/2011 | Shoulder pain | | | TECH,1+REGIONS,EA 15 | e | 12:22 PM | | | | MIN | | PDT | | | + +--------+ + + + | [place] THERAPEUTIC | Routin | 11/03/2011 | Shoulder [...]
--- OUTSIDE RECORDS SUMMARY | ~2018-07-16 | XMS | Encounter Summary ---
Demographics + + + | Address | [address] | | | [place] [address] | + + + | Home Phone | | + + + | Preferred Language | Unknown | + + + | Marital Status | | + + + | Sikhism Affiliation | NON | + + + [...] [place] | | | | | [address] | | + + + + + Care Team Providers + +------+ + | Care Pin Cleaner Name | Role | Phone | + [...] | | | | | THERAPY | [facility] [place] | for Health | | | | | REFERRAL | [address] | and Healing, | | | | | | Phone: | 1st floor | | | | | | [phone] | [facility] [place] | | | | | | Fax: | [address] | | | | | | [phone] | Phone: | | | | | | | [phone] | | | | | | | Fax: | | | | | | | [phone] | +--------+--------+ + + + + Encounter Details +--------+---------+ + + + | Date | Type | Department | Care Team | Description | +--------+---------+ + + + | 10/22/ | Office | [facility] | Lena Rain, | Herniated lumbar | | 2011 | Visit | Therapy Services at | PT [address] | intervertebral disc; | | | [facility] | [address] | Degeneration of | | | | [address] | [place], [place] | lumbar | | | | Mailcode: CH3P | [address] | intervertebral disc; | | | | [facility] | | Low back pain; | | | | and Healing, 1st | | Lumbar radiculopathy | | | | floor [place], [place] | | | | | | [address] | | | | | | [phone] | | | +--------+---------+ + + + [...] might be different fr om the original. [id number] KEVON WELCH Date of : 1940 Start of care: 10/09/2011 Date of onset: 09/10/11 Referring/Attending Practitioner: Alcira Bocanegra PA . Primary/Referral Diagnosis/ICD-9: 722.10H Herniated lumbar intervertebral disc Insurance: Payor: ODS MEDICARE Plan: ODS MEDICARE Product Type: PPO Service period from: 10/09/2011 to: 11/08/11 Number visits used/authorized: 5/ Neurologist: Dr. Lyles [facility] [address] [place] [address] (Office) [facility] PHYSICAL THERAPY SUBJECTIVE Age: 71 [...] ago. 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 LENA RAIN PT [facility] RE[facility]IL[facility] AND HAND THERAPY [address] Mailcode: [facility], [address] [place] [phone] documented in this e ncounter Plan of Treatment Not on filedocumented as of this encounter Procedures + +--------+ + + + | Procedure Name | Priori | Date/Time | Associated Diagnosis | Comments | | | ty | | | | + +--------+ + + + | [place] THERAPEUTIC | Routin | 10/23/2011 | Herniated [...]
--- OUTSIDE RECORDS SUMMARY | ~2018-07-16 | XMS | Encounter Summary ---
Demographics + + + | Address | [address] | | | [place] [address] | + + + | Home Phone | | + + + | Preferred Language | Unknown | + + + | Marital Status | | + + + | Quaker Affiliation | NON | + + + [...] [place] | | | | | [address] | | + + + + + Care Team Providers + +------+ + | Care Private Tutors And Teachers Name | Role | Phone | + [...] | | | | THERAPY | [facility] [place] | for Health | | | | | REFERRAL | [address] | and Healing, | | | | | | Phone: | 1st floor | | | | | | [phone] | [place], [place] | | | | | | Fax: | [address] | | | | | | [phone] | Phone: | | | | | | | [phone] | | | | | | | Fax: | | | | | | | [phone] | +--------+--------+ + + + + Encounter Details +--------+---------+ + + + | Date | Type | Department | Care Team | Description | +--------+---------+ + + + | 10/15/ | Office | [facility] | Philly Rain, | Low back pain; | | 2011 | Visit | Therapy Services at | PT [address] | Lumbar | | | | [facility] | [address] | radiculopathy; | | | | [address] | [place], [place] | Herniated lumbar | | | | Mailcode: CH3P | [phone] | intervertebral disc; | | | | [facility] | | Degeneration of | | | | and Healing, 1st | | lumbar | | | | floor [place], [place] | | intervertebral disc | | | | [address] | | | | | | [phone] | | | +--------+---------+ + + + [...] might be different fr om the original. [id number] KEVON WELCH Date of : 1940 Start of care: 10/09/2011 Date of onset: 09/10/11 Referring/Attending Practitioner: Alcira Bocanegra PA . Primary/Referral Diagnosis/ICD-9: 722.10H Herniated lumbar intervertebral disc Insurance: Payor: ODS MEDICARE Plan: ODS MEDICARE Product Type: PPO Service period from: 10/09/2011 to: 11/08/11 Number visits used/authorized: 3/ Neurologist: Dr. Rafal [facility] [address] [place] [address] (Office) [facility] PHYSICAL THERAPY SUBJECTIVE Age: 71 y.o. [...] Social History: lives with Recreational Activities/Hobbies: plays [employer]; reading; does a lot of computer/keyboarding Functional [...] change in their status. PHILLY RAIN PT [facility] REHABIL[facility]ATION SERVICES AND HAND THERAPY [address] Mailcode: [address] [facility], [address] [place] [phone] documented in this e ncounter Plan of Treatment Not on filedocumented as of this encounter Procedures + +--------+ + + + | Procedure Name | Priori | Date/Time | Associated Diagnosis | Comments | | | ty | | | | + +--------+ + + + | ME THERAPEUTIC | Routin | 10/16/2011 | Low [...] + | ME THERAPEUTIC | Routin | 10/16/2011 | Low [...]
--- OUTSIDE RECORDS SUMMARY | ~2018-07-16 | XMS | Encounter Summary ---
Demographics + + + | Address | [address] | | | [place] [address] | + + + | Home Phone | | + + + | Preferred Language | Unknown | + + + | Marital Status | | + + + | Jain Affiliation | NON | + + + [...] [place] | | | | | [address] | | + + + + + Care Team Providers + +------+ + | Care Electrode Cleaner Name | Role | Phone | [...] | | | Procedures | [facility] | Mailcode: | | | | | PHYSICAL | Rd | [facility] | | | | | THERAPY | [place], [place] | for Health | | | | | REFERRAL | [address] | and Healing, | | | | | | | 1st floor | | | | | | | [place], [place] | | | | | | | [address] | | | | | | | Phone: | | | | | | | [phone] | | | | | | | Fax: | | | | | | | [phone] | +--------+--------+ + + + + Encounter [...] (Primary Dx) | | | | [facility] | [address] | | | | | [address] | [place], [place] | | | | | Mailcode: [facility] | [address] | | | | | [facility] | | | | | | and Healing, 1st | | | | | | floor [place], [place] | | | | | | [address] | | | | | | [phone] | | | +--------+---------+ + + + [...] [place], PT - 08/11/2013 4:09 PM PDT [id number] KEVON WELCH Date of : 1940 Start of care: 05/19/2013 Date of onset: 03/21/2013 Referring/Attending Practitioner: Misael Myers Primary/Referral Diagnosis/ICD-9: Shoulder pain, right (primary encounter diagnosis) Insurance: Payor: [employer] MEDICARE Plan: [employer] MEDICARE Product Type: P PO Service period from: 05/19/2013 to - Number visits used/authorized: [facility] PHYSICAL THERAPY TREATMENT - ORTHO SUBJECTIVE: [...] Right 07/20/2013 Right 08/11/2013 Flexion 141 155 [id number]* [id number] Pre 125* Post 140 Abduction 146 150 [id number]* [id number] Pre 95* Post 132 ER at 90 [...] exercise program as pt lives in [facility], [place] for posterior do minant shoulder strength Frequency/Duration: Follow up prn due to pt living in [facility] Treatment began: 0407 pm Treatment ended: 0452 pm This note is to serve as the discharge summary if Kevon fails to attend further Physical Th erapy appointments or contact the therapist regarding any change in their status. Alise [place], PT [facility] AND HAND THERAPY [address] Mailcode: [place] [address] documented in this encounter Plan [...]
--- OUTSIDE RECORDS SUMMARY | ~2018-07-16 | XMS | Encounter Summary ---
Demographics + + + | Address | [address] | | | [place] [address] | + + + | Home Phone | | + + + | Preferred Language | Unknown | + + + | Marital Status | | + + + | Confucianism Affiliation | NON | + + + | Race | White | + + + | Ethnic Group | Not or | + + + Author + + + | Author | [facility] | + + + | Organization | [facility] | + + + | Address | Unknown | + + + | Phone | Unavailable | + + + Support + + + + + | Name | Relationship | Address | Phone | + + + + + | Elizabeth Welch | ECON | [address] | | | | | [place] | | | | | [address] | | + + + + + Care Team Providers + +------+ + | Care Orthopedic Radiologic Technologist Name | Role | Phone | [...] | | | | THERAPY | [facility] [place] | for Health | | | | | REFERRAL | [address] | and Healing, | | | | | | Phone: | 1st floor | | | | | | [phone] | [facility] [place] | | | | | | Fax: | [address] | | | | | | [phone] | Phone: | | | | | | | [phone] | | | | | | | Fax: | | | | | | | [phone] | +--------+--------+ + + + + Encounter Details +--------+---------+ + + + | Date | Type | Department | Care Team | Description | +--------+---------+ + + + | 10/29/ | Office | [facility] | Lena Rain, | Herniated lumbar | | 2011 | Visit | Therapy Services at | PT [address] | intervertebral disc; | | | | [facility] | [address] | Degeneration of | | | | [address] | [place], [place] | lumbar | | | | Mailcode: CH3P | [phone] | intervertebral disc; | | | | [facility] | | Low back pain; | | | | and Healing, 1st | | Lumbar radiculopathy | | | | floor [place], [place] | | | | | | [address] | | | | | | [phone] | | | +--------+---------+ + + + [...] might be different fr om the original. [id number] KEVON WELCH Date of : 1940 Start of care: 10/09/2011 Date of onset: 09/10/11 Referring/Attending Practitioner: Alcira Bocanegra PA . Primary/Referral Diagnosis/ICD-9: 722.10H Herniated lumbar intervertebral disc Insurance: Payor: [employer]DS MEDICARE Plan: ODS MEDICARE Product Type: PPO Service period from: 10/09/2011 to: 11/08/11 Number visits used/authorized: 6/ Neurologist: Dr. Lyles [facility] [address] [place] [address] (Office) [facility] PHYSICAL THERAPY SUBJECTIVE Age: 71 y.o. [...] month ago. 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 LENA RAIN PT [facility] REHABILITATION SERVICES AND HAND THERAPY [address] Mailcode: [address], [address] [place] [phone] documented in this e ncounter Plan of Treatment Not on filedocumented as of this encounter Procedures + +--------+ + + + | Procedure Name | Priori | Date/Time | Associated Diagnosis | Comments | | | ty | | | | + +--------+ + + + | [place] THERAPEUTIC | Routin | 10/30/2011 | Herniated [...] | + +--------+ + + + | [place] THERAPEUTIC | Routin | 10/30/2011 | Herniated [...]
--- OUTSIDE RECORDS SUMMARY | ~2018-07-16 | XMS | Encounter Summary ---
Demographics + + + | Address | [address] | | | [place] [address] | + + + | Home Phone | | + + + | Preferred Language | Unknown | + + + | Marital Status | | + + + | Jew Affiliation | NON | + + + [...] [place] | | | | | [address] | | + + + + + Care Team Providers + +------+ + | Care Product Managent Intern Name | Role | Phone | [...] | | shoulder | Provider Per | [address] | | | | | pain | Patient NO | [address] | | | | | | REFERRING | [address] [place], | | | | | | PROVIDER PER | [place] | | | | | | [place] | [address] | | | | | | | Phone: | | | | | | | [phone] | | | | | | | Fax: | | | | | | | [phone] | +--------+--------+ + + + + Encounter Details +--------+---------+ + + + | Date | Type | Department | Care Team | Description | +--------+---------+ + + + | 06/29/ | Office | Orthopaedics at | Misael Myers MD | Shoulder pain | | 2011 | Visit | [facility] [address] | [address] | (Primary Dx) | | | | Ave Mailcode: CH12A | [address] | | | | | [place] for [facility] | [place], [place] | | | | | and , | [address] | | | | | Floor [place], [place] | [phone] | | | | | [address] | | | | | | [phone] | | | +--------+---------+ + + + [...]
--- OUTSIDE RECORDS SUMMARY | ~2018-07-16 | XMS | Encounter Summary ---
Demographics + + + | Address | [address] | | | [place] [address] | + + + | Home Phone [...] [place] | | | | | [address] | | + + + + + Care Team Providers + +------+ + | Care Stone Driller Helper Name | Role | Phone | + +------+ + | Doyle Johnson MD | PCP | Unavailable | + +------+ + Reason for Visit + + + | Reason | Comments | + + + | Pre-op evaluation | | + + + | Home Pump Education | | + + + Office Visit [...] | | shoulder | Provider Per | [address] | | | | | pain | Patient NO | Celestine Morales | | | | | | REFERRING | De[place], | | | | | | PROVIDER PER | [place] | | | | | | [place] | [address] | | | | | | | Phone: | | | | | | | [phone] | | | | | | | Fax: | | | | | | | [phone] | +--------+--------+ + + + + Encounter Details +--------+---------+ + + + | Date | Type | Department | Care Team | Description | +--------+---------+ + + + | 06/29/ | Office | Preoperative | Lida Houser, | Shoulder pain | | 2011 | Visit | Medicine Clinic at | ANP [address] | (Primary Dx); Other | | | | [facility] 4th Floor [address] | specified | | | | [address] | [place], [place] | pre-operative | | | | Code: [facility] Center | [address] | examination; NELY | | | | for Health and | [phone] | (obstructive sleep | | | | Healing,4th Floor | | apnea) | | | | [place], [place] | | | | | | [address] | | | | | | [phone] | | | +--------+---------+ + + + Anesthesia Record + + [...] + + + | Blood Pressure | 137/74 | 06/30/2011 1:51 PM | | | | | PDT | | + + + + + | Pulse | 57 | 06/30/2011 1:51 PM | | | | | PDT | | + + + + + | Temperature | 36.7 C (98 F) | 06/30/2011 1:51 PM | | | | | PDT | | + + + + + | Respiratory Rate | 16 | 06/30/2011 1:51 PM | | | | | PDT | | + + + + + | Oxygen Saturation | 98% | 06/30/2011 1:51 PM | | | | | PDT | | + + + + + | Inhaled Oxygen | - | - | | | Concentration | | | | + + + + + | Weight | 73.9 kg (163 lb) | 06/30/2011 1:51 PM | | | | | PDT | | + + + + + | Height | 172.7 cm (5' 8") | 06/30/2011 1:51 PM | neck 37.5cm | | | | PDT | | + + + + + | Body Mass Index | 24.78 | 06/30/2011 1:51 PM | | | | | PDT | | + + + + + documented in this encounter Patient Instructions Patient Instructions Lida Giang - 06/30/2011 1:53 PM PDT PREOPERATIVE INSTRUCTIONS Do not eat or drink anything after midnight the night before surgery. Current Medication List Name Sig IBUPROFEN 200 MG TAB Take 200 mg by mouth every six hours as needed. OXYCODONE 5 MG TAB Take one to three every 3-6 hours as needed by mouth Do not take any Aspirin, vitamin E or non-steroidal anti-inflammatory (NSAIDs i.e. Advil , Aleve, Ibuprofen) or herbal supplements seven days prior to your surgery. These drugs may interfere with normal blood clotting and may cause excessive bleeding and bruising during or after the surgery. If you are taking Coumadin (warfarin), Plavix or any other blood thinners please let you r surgical team know as medication changes will be necessary. If you need a pain medication for general purposes, use Tylenol as directed. If you are in doubt about any medications that you are taking, please contact our office . Important Guidelines Do not shave the surgical area Do not smoke, drink alcohol or use recreational drugs f or 24 hours before your surgery Do not eat any hard candy or chew gum after midnight the night before your surgery. Watch for any change in your health condition. Let your surgeon know right away if you do not feel well. Do not wear makeup, perfume, lotions or powder. Remove any nail lebanese from at least one fingernail. Do not wear any jewelry to the hospital. Wear loose, comfortable clothing. Bring the case and solution for your contact lenses or wear your glasses. Leave all your valuables at home. Allow enough travel time so you re not late for your check in for surgery. Take a bath or shower and remember to shampoo your hair using your usual hair product be fore your arrival at the hospital. Please remember to brush your teeth the night before and the morning of your procedure. HIBICLENS GUIDE TO GENERAL SKIN CLEANSING AT HOME BEFORE SURGERY General Skin Cleansing Instructions: Hibiclens is not to be used on the head or face, keep out of the eyes, ears and mouth. Hibiclens is not to be used in the genital area. If this is the first time using Hibiclens, please perform an allergy test by placing 1-2 dr ops of soap on your forearm. Observe this area for 4-5 minutes. If you develop a rash, pleas e DO NOT use this product. Please inform the preop team on the morning of surgery so that th is product is NOT used during your surgery. *See Hibiclens label for full product information and precautions. When you bathe or shower the night before your surgery: If you plan to wash your hair, do so with your regular shampoo. Then rinse hair and body th oroughly to remove any shampoo residue. Wash your face with your regular soap or water only. Thoroughly rinse your body with warm water from neck down. Then use Hibiclens as you would any other liquid soap. Please do not put the Hibiclens on a wash cloth, apply directly to the skin and wash gently. Apply the minimum amount of Hibicl ens necessary to cover the skin. Leave the Hibiclens on your skin for 1 minute, then rinse o ff. Rinse thoroughly with warm water. Towel dry with a clean towel. Dress in clean sleepwear and sleep on freshly laundered sheets. When using Hibiclens for a second day in a row (morning of surgery, as soon as you wake up) : Shower/bathe again using Hibiclens in the same method as described above and wear freshly l aundered clothes. Do not apply any lotions, deodorants, powders or perfumes to the body areas that have been cleaned with Hibiclens. Preventing post op complications Use an incentive spirometer or peep breathe to keep your lungs working properly an d to help prevent respiratory complications. It helps you take long, deep breaths. Use it at least once every hour while you are awake. Leg and feet exercises will maintain good circulation and help prevent blood clots in yo ur legs. Sometimes your doctor will order air compression stockings. Compressed air helps the circulation in your legs. Walking and moving will help stimulate normal circulation and deep breathing. After you r surgery, your nurse may ask you to sit, stand or walk. Surgery Check in Time: Someone from your surgeon's office or [facility] will provide you with information regarding your check in time. If you have any questions about this, pl ease contact your surgeon's office. Going Home Your surgical team will decide when you are medically ready to go home. If you are released to go home on the same day as your procedure/surgery please note the following: You will not be able to drive. You will be required to have a competent adult drive you or accompany you by taxi or pub lic transportation on the day of discharge. It is also required that you have a competent adult assist you and look after you on the first night after you have undergone regional blocks (72 hours for patients going home with regional block pump), deep sedation, and/or general anesthesia. If you stayed in the hospital after surgery, please arrange for your ride to come for yo u around 9AM on the day your doctor says you can go home. Check out time is 11AM. If you have questions or concerns after you go home, call your doctor s office. If it is after office hours, call the [facility] nailing machine operator automatic at [phone] and ask them to page your doc tor. documented in this encounter Progress Notes Anupam Miller, Lida Francois - 06/30/2011 2:36 PM PDTFormatting of this note might be different fr om the original. PREOPERATIVE CONSULT NOTE Consulting Provider: BRADFORD ALVES Referring Physician: Dr Myers Primary Care Provider: Doyle Johnson MD Reason for Consult: Preoperative evaluation and risk assessment Proposed Procedure/Date: left arthroscopic SAD, DCR, poss BT HISTORY OF PRESENT ILLNESS: Kevon Welch is a 70 y.o. male here for preoperative e valuation for above procedure. His medical history is significant for left shoulder pain of 5 months duration. The pain began suddenly and has gradually increased. History of a precip itating event was positive by way of washing his back. Pain is present across the anterior a nd posterior shoulder. The patient has an average pain level of 3 out of 10, characterized a s varying with activity. The patient experiences pain confined to the shoulder region. The p ain is of aching and sharp quality. The patient has aggravation of the pain with overhead ac tivity. The pain is improved with rest . The patient has not previously undergone treatment. No pain at night. No pain while driving. Patient has a history of a right RCT that was jessica cayla non-operatively. MRI performed at OSH shows mild/moderate amount of degeneration of the ac joint, with some intrasubstance signal of the RC. No full thickness defect seen. PMH of O SA treated with UPPP several years ago, his reports significant improvement. Otherwise healthy, no history or symptoms of CAD/CHF/CKD/IDDM/CVD. ROS: Preoperative Patient Questionnaire was reviewed with the patient. Document will be s canned in [employer]. Current Medication List Name Sig IBUPROFEN 200 MG TAB Take 200 mg by mouth every six hours as needed. OXYCODONE 5 MG TAB Take one to three every 3-6 hours as needed by mouth Allergies Allergen Reactions Ibuprofen Palpitations Only with Large dose amount reactions were irregular heart beat Moban (Molindone Hcl) Palpitations irregular heart beat Past Medical History Diagnosis Date NELY (obstructive sleep apnea) Past Surgical History Procedure Date Lipoma exicison 2002 Uppp 2006 Knee procedure 195 Colonoscopy-last 2009 Family History History Substance Use Topics Smoking status: Never Smoker Smokeless tobacco: Never Used Alcohol Use: No 1 glass of wine a day PHYSICAL EXAM: Last Vitals: BP 137/74 | Pulse 57 | Temp (Src) 36.7 C (98 F) (Oral) | RR 16 | Ht 172.7 cm (5' 8") | Wt 73.936 kg (163 lb) | SpO2 98% | BMI 24.78 kg/(m^2) Body mass index is 24.78 kg/(m^2). PMC ROS Last edited 06/30/11 1436 by BRADFORD Davies Pulmonary: NELY, s/p UPPP several years ago with much improvement Within Defined Limits except as noted below no cough no shortness of breath no wheezing Pt. Has no asthma Cardiovascular: Within Defined Limits except as noted below Functional Capacity: Moderate - chest pressure and syncope no CAD no CHF no hypertension no pacemaker GI/Hepatic: Within Defined Limits except as noted below no GI Bleed no GERD No liver disease no hepatitis : Within Defined Limits except as noted below Endo: Within Defined Limits except as noted below Neurological: no seizures no HX CORTICOSTEROID no psychiatric problem no dementia Current pain level: 0 MS: Within Defined Limits except as noted below no arthritis Heme/Onc: Within Defined Limits except as noted below Pt. has: no active bleeding no Bleeding diathesis / thrombotic bleeding Malignancy: no cancer, Location: Metastasis: Skin: Within Defined Limits except as noted below No open wounds or sores No hx MRSA/VRE/Active skin infection Physical Exam General: Patients general appearance: Healthy, Alert, No distress, Cooperative and Age appropriate Head & Neck/Airway: NC/AT; PERRL; EOMI; nl appearing ears and nose. Neck ROM: full Dentition: dentition is normal no Roman Mallampati: II Mouth Opening: > = 3 cm C-Spine: normal Neck Anatomy: Normal Jaw Protrusion: Normal, lower incisors can protrude past upper incisors Lung Exam: No respiratory distress. Normal breathing pattern. breath sounds normal Cardiac: No murmurs, gallops or rubs. Rhythm: regular Rate: normal Abdominal: General Findings: no abdominal tenderness and Nondistended Bowel Sounds: bowel sounds are normal Musculoskeletal: Findings: tone normal Neuro/Psych: No focal neuro deficits; Alert and appropriate; nl affect. alert Findings: Cranial nerves 2-12 intact, Motor 5/5 strength globally with normal tone, Soft & sharp sensation normal, No tremor, Alert, oriented to person, place, time and Normal affect Integument: No open rashes or lesions noted. - lesion, rash and open wounds Color: pink Texture: Skin texture - normal Turgor: turgor normal Implants: None, LAB DATA REVIEWED/ORDERED No results found for this basename: wbc, hb, hct, plt, mcv, rdw No results found for this basename: na, k, cl, bicarb, bun, cr, glu, ca, ast, alt, ap, tbili, tp, alb No results found for this basename: abo, rh No results found for this basename: a1c EKG: Personally reviewed, SB with no Q waves. MEDICAL DECISION MAKIN ACC/ AHA Perioperative Guidelines1. Need for emergency noncardiac surgery? b. No -> Proceed to next step. 2. Active Cardiac Conditions? These conditions mandate further investigation and manageme nt. A. Acute CA within 7 days: no B. Unstable angina/Recent CA (7- 30 days): no C. Decompensated CHF: no D. Significant arrhythmia: None E. Severe valvular disease: NONE 3. Low risk surgery? b. No -> proceed with next step. 4. Good functional capacity? MET ASSESSMENT: 6. METS--9 holes of golf holding own clubs, mow lawn with push mower. (>4 METS) a. Yes -> proceed with surgery. 5. Assess Clinical Risk Factors? A. Ischemic heart disease: no B. Compensated / prior heart failure: no C. Diabetes mellitus (treated with insulin): no D. Renal insufficiency (Cr > 2): no E. Cerebrovascular disease: no Rate of cardiac , non fatal CA, non fatal cardiac arrest 0 risk factors - 0.4% 1 risk factors - 1%, 2 risk factors - 7%, 3 or >risk factors - 11% (may benefit from perioperative beta blockers) Risk Factor Recommendations: 0 risk factors- proceed with planned surgery Surgery Risk: Intermediate Patient-related risk: Estimated ASA class -- 1 ASSESSMENT and RECOMMENDATIONS: Surgical/anesthesia risk assessment: Kevon Welch is a 70 y.o. male with diagno sis of shoulder pain, scheduled for left arthroscopic SAD, DCR, poss BT. According to ACC/A SHAW, this patient has 0 clinical risk factors and the recommendation is to proceed. Medication management recommendations: The patient was advised to continue all usual med ications except as noted in Patient Instructions (After Visit Summary given to pt) Perioperative antibiotic prophylaxis: Standard (Consider IV Vanco one hr before procedu re in pts with Cephalosporin/PCN allergy and/or with hx of MRSA) (Other co-morbid conditions) This patient is medically stable for surgery. Further testing/optimization is not needed. Thank you for the opportunity to contribute to this patient's care. BRADFORD ALVES [facility] CLINIC [address] [place] [address] [place] [address] Marilin Vang MA - 06/30/2011 2:19 PM PDT Nerve Block Home Pump Education: Total time spent during clinic visit in patient education 15 minutes. [facility] Department of Anesthesia, Regional Anesthesia patient information web site accessed. I flow Nerve Block Home Pump Education power point selected specific to patient' s shoulder surgery site. Patient will have Instructions given to patient to read each slid e in power point and to document questions. After completion of power point, LEIDY physically displayed Home Pump to patient and demonstrated main points of pump functionality and ho w to deliver a bolus of medication. Trouble shooting techniques were reviewed, contact info rmation to Anesthesia Pain Service for patient questions and all patient questions answered prior to completion of this visit. Venipuncture performed in clinic, blood sample obtained from Right antecubital site Electro nically signed by Marilin Morley MA at 06/30/2011 2:39 PM PDTdocumented in this encounter Plan of Treatment Not on filedocumented as of this encounter Procedures + +--------+ + + + | Procedure Name | Priori | Date/Time | Associated Diagnosis | Comments | | | ty | | | | + +--------+ + + + | PROCEDURE NOTE | Routin | 03/16/2015 | | Results for this | | | e | 2:30 AM | | procedure are in the | | | | PST | | results section. | + +--------+ + + + | DE COLLECTION VENOUS | Routin | 06/30/2011 | Other specified | | | BLOOD,VENIPUNCTURE | e | 2:20 PM | pre-operative | | | | | PDT | examination | | + +--------+ + + + | 12 LEAD ECG | Routin | 06/30/2011 | Other specified | Results for this | | | e | 2:02 PM | pre-operative | procedure are in the | | | | PDT | examination | results section. | + +--------+ + + + | CBC ONLY | Routin | 06/30/2011 | Other specified | Results for this | | | e | 1:47 PM | pre-operative | procedure are in the | | | | PDT | examination | results section. | + +--------+ + + + | LAB REPORTS | | 06/24/2011 | | Results for this | | | | 12:00 AM | | procedure are in the | | | | PDT | | results section. | + +--------+ + + + | LAB REPORTS | | 06/24/2011 | | Results for this | | | | 12:00 AM | | procedure are in the | | | | PDT | | results section. | + +--------+ + + + documented in this encounter Results PROCEDURE NOTE (03/16/2015 2:30 AM PST) + + | Transcriptions | + + | Other, Faculty - 07/02/2011 10:52 AM PDT | + + 12 LEAD ECG (06/30/2011 2:02 PM PDT) + + + + + + | Component | Value | Ref Range | Performed | Pathologist | | | | | At | Signature | + + + + + + | VENTRICULAR | 50 | BPM | [facility] | | | RATE | | | OF | | | | | | CARDIOLOGY | | + + + + + + | ATRIAL RATE | 50 | BPM | [facility] | | | | | | OF | | | | | | CARDIOLOGY | | + + + + + + | P-R | 144 | ms | [facility] | | | INTERVAL | | | OF | | | | | | CARDIOLOGY | | + + + + + + | QRS | 92 | ms | [facility] | | | DURATION | | | OF | | | | | | CARDIOLOGY | | + + + + + + | QT | 438 | ms | [facility] | | | | | | OF | | | | | | CARDIOLOGY | | + + + + + + | QTC | 399 | ms | [facility] | | | | | | OF | | | | | | CARDIOLOGY | | + + + + + + | P AXIS | 40 | degrees | [facility] | | | | | | OF | | | | | | CARDIOLOGY | | + + + + + + | R AXIS | 23 | degrees | [facility] | | | | | | OF | | | | | | CARDIOLOGY | | + + + + + + | T AXIS | 51 | degrees | [facility] | | | | | | OF | | | | | | CARDIOLOGY | | + + + + + + | EKG | Sinus | | [facility] | | | DIAGNOSIS | bradycardiaOtherwise | | OF | | | | normal ECGConfirmed by | | CARDIOLOGY | | | | KEDAR MARKS ([id number]) on | | | | | | 07/01/2011 3:06:44 PM | | | | + + + + + + + + | Specimen | + + | | + + + + + | Narrative | Performed At | + + + | Please click | [facility] | | on view image for the detailed interpretation from [employer] results. | CARDIOLOGY | + + + + + + + + | Performing | Address | City/State/Zipcode | Phone Number | | Organization | | | | + + + + + | [facility] | [address] | [place], [place] | | | CARDIOLOGY | [address] | [address] | | + + + + + CBC ONLY (06/30/2011 1:47 PM PDT) + + + + + + | Component | Value | Ref Range | Performed | Pathologist | | | | | At | Signature | + + + + + + | WHITE CELL | 8.5 | 4.4 - 11.0 K/cu | [facility] | | | COUNT | | mm | DEPARTMENT | | | | | | OF | | | | | | PATHOLOGY | | + + + + + + | RED CELL | 4.64 | 4.50 - 5.90 | [facility] | | | COUNT | | M/cu mm | DEPARTMENT | | | | | | OF | | | | | | PATHOLOGY | | + + + + + + | HEMOGLOBIN | 15.1 | 13.5 - 17.5 | [facility] | | | | | g/dL | DEPARTMENT | | | | | | OF | | | | | | PATHOLOGY | | + + + + + + | HEMATOCRIT | 44.8 | 41.0 - 53.0 % | [facility] | | | | | | DEPARTMENT | | | | | | OF | | | | | | PATHOLOGY | | + + + + + + | MCV | 96.6 (H) | 80.0 - 96.0 fL | [facility] | | | | | | DEPARTMENT | | | | | | OF | | | | | | PATHOLOGY | | + + + + + + | MCHC | 33.7 | 33.4 - 35.5 | [facility] | | | | | g/dL | DEPARTMENT | | | | | | OF | | | | | | PATHOLOGY | | + + + + + + | RDW | 14.0 | 11.5 - 15.0 % | [facility] | | | | | | DEPARTMENT | | | | | | OF | | | | | | PATHOLOGY | | + + + + + + | PLATELET | 160 | 150 - 400 K/cu | [facility] | | | COUNT | | mm | DEPARTMENT | | | | | | OF | | | | | | PATHOLOGY | | + + + + + + + + | Specimen | + + | Blood - Blood | + + + + + + + | Performing | Address | City/State/Zipcode | Phone Number | | Organization | | | | + + + + + | [facility] DEPARTMENT OF | [address] | [place] [address] | | | PATHOLOGY | [address] | | | + + + + + LAB REPORTS (06/24/2011 12:00 AM PDT) + + + | Narrative | Performed At | + + + | | | + + + + + | Transcriptions | + + | Daniella Menjivar - 07/10/2011 7:26 PM PDT | + + LAB REPORTS (06/24/2011 12:00 AM PDT) + + + | Narrative | Performed At | + + + | | | + + + + + | Transcriptions | + + | Daniella Menjivar - 07/10/2011 7:26 PM PDT | + + documented in this encounter Visit Diagnoses + + | Diagnosis | + + | Shoulder pain - Primary Pain in joint, shoulder region | + + | Other specified pre-operative examination | + + | NELY (obstructive sleep apnea) Obstructive sleep apnea (adult) (pediatric) | + + documented in this encounter
--- OUTSIDE RECORDS SUMMARY | ~2018-07-16 | XMS | Encounter Summary ---
Demographics + + + | Address | [address] | | | [place] [address] | + + + | Home Phone | | + + + | Preferred Language | Unknown | + + + | Marital Status | | + + + | Quaker Affiliation | NON | + + + | Race | White | + + + | Ethnic Group | Not or | + + + Author + + + | Author | [facility] | + + + | Organization | [facility] | + + + | Address | Unknown | + + + | Phone | Unavailable | + + + Support + + + + + | Name | Relationship | Address | Phone | + + + + + | Elizabeth Welch | ECON | [address] | | | | | [place] | | | | | [address] | | + + + + + Care Team Providers + +------+ + | Care Deli Manager Name | Role | Phone | [...] | | | | | THERAPY | [place], [place] | for Health | | | | | REFERRAL | [address] | and Healing, | | | | | | Phone: | 1st floor | | | | | | [phone] | [place], [place] | | | | | | Fax: | [address] | | | | | | [phone] | Phone: | | | | | | | [phone] | | | | | | | Fax: | | | | | | | [phone] | +--------+--------+ + + + + Reason for Visit +---------+ + | [...] | Orftracey, | | | | | Rotator | Referring | MD Misael | | | | | cuff | Provider Per | [address] | | | | | (capsule) | Patient NO | Celestine Morales | | | | | sprain | REFERRING | Dejan Onofre | | | | | Osteoarthros | PROVIDER PER | [place] | | | | | [place], | [place] | [address] | | | | | unspecified | | Phone: | | | | | whether | | [phone] | | | | | generalized | | Fax: | | | | | or | | [phone] | | | | | localized, | [...] | | | | | | | WASH OIL PUMP OPERATOR | | | | | | | [place] [facility] | | | | | | | ARTHROSCOP,P | | | | | | | ART | | | | | | | ACROMIOPLAS | | | | | | | W/CORACOACRO | | | | | | | M [place] SHLDR | | | | | | | ARTHROSCOP,S | | | | | | | URG,DIS | | | | | | | CLAVICULECTO | | | | | | | MY [place] | | | | | | | ARTHROSCOPY | | | | | | | BICEPS | | | +--------+--------+ + + + + Encounter Details +--------+---------+ + + + | Date | Type | Department | Care Team | Description | +--------+---------+ + + + | 08/03/ | Office | Orthopaedics at | Alcira Bocanegra PA | Shoulder pain | | 2011 | Visit | [facility] [address] | [address] | (Primary Dx) | | | | Ave Mailcode: CH12A | [facility], | | | | | [facility] | [place] [address] | | | | | and Healing, | [phone] | | | | | Floor [place], [place] | | | | | | [address] | | | | | | [phone] | | | +--------+---------+ + + + [...] Weight | 70.3 kg (155 lb) | 08/04/2011 12:49 PM | | | | | PDT | | + + + + + | Height | 172.7 cm (5' 8") | 08/04/2011 12:49 PM | | | | | PDT | | + + + + + | Body Mass Index | 23.57 | 08/04/2011 12:49 PM | | | | | PDT | | + + + + + documented in this encounter Progress Notes Alcira Bocanegra PA - 08/04/2011 1:58 PM PDTSubjective: Kevon Welch is a patient o f Dr. Chester who is 2 wks status post: Procedure: 1. left arthroscopic subacromial decompression. 2. left arthroscopic distal clavicle resection. 3. left arthroscopic shoulder limited synovectomy and labral debridement Patient is here today for routine post op visit for wound check. Chief complaint today: no ne. Off pain meds. Doing PT HEP. Seeing PT today. HPI: surgery on 07/22/11. Review of Systems: An Eight Point review of systems was conducted. Denies recent F/C/N/V. Likewise no SOB, CP, SHAW, dizziness. No changes in B/B. Pertinent positives: none. Objective: General: The patient is a well-informed, well nourished, and no acute distress who appears of stated age. Affect and mood are normal. Patient is normocephalic, conjugate gaze. Reema athing is normal. Skin is normal color, temperature. Derm: Bandages are removed today. Incision is clean and dry. No signs of erythema, drain age, or infection. Incision is not warm to the touch. Sutures in place. Procedure Note: Sutures were cleansed with an alcohol prep pad. The sutures are removed w ithout any complications and steri-Strips were applied. No bleeding occurred and the patie nt tolerated the procedure well. Assessment: Progressing well, 2 wks status post surgery. Plan: Wound Care: Patient to keep incision clean and dry for the next 24 hours. Patient to leav e sterie strips in place for 3-5 days. Activity: Continue NWB left UE. Passive ROM ok. continue with sofiya, pendulum, and stick exercise. See PT today. Medications: no prescription given to pt. Follow-up: Patient will follow up in 4 wks for reassessment. Should the patient have any questions or concerns prior to their next visit they will contact the clinic. documented in this encmariela nter Plan of Treatment Not on filedocumented as of this encounter Visit Diagnoses + + | Diagnosis | + + | Shoulder pain - Primary Pain in joint, shoulder region | + + documented in this encounter
--- OUTSIDE RECORDS SUMMARY | ~2018-07-16 | XMS | Encounter Summary ---
Demographics + + + | Address | [address] | | | [place] [address] | + + + | Home Phone [...] [place] | | | | | [address] | | + + + + + Care Team Providers + +------+ + | Care Golf Caddie Name | Role | Phone | + +------+ + | Doyle Johnson MD | PCP | | + +------+ + Encounter Details +--------+ + + + + | Date | Type | Department | Care Team | Description | +--------+ + + + + | 12/27/ | MyChart | [facility] | Rupesh, | RE: My change of | | 2013 | Encounter | Therapy Services at | Alise, PT [address] | appointment | | | | [facility] | [address] | | | | | [address] | [place], [place] | | | | | Mailcode: [facility] | [address] | | | | | [facility] | | | | | | and Healing, 1st | | | | | | floor [place], [place] | | | | | | [address] | | | | | | [phone] | | | +--------+ + + + [...]
--- OUTSIDE RECORDS SUMMARY | ~2018-07-16 | XMS | Encounter Summary ---
Demographics + + + | Address | [address] | | | [place] [address] | + + + | Home Phone [...] [place] | | | | | [address] | | + + + + + Care Team Providers + +------+ + | Care Ore Fielder Name | Role | Phone | + [...] | | | | | Procedures | [facility] | Mailcode: | | | | | PHYSICAL | Rd | [facility] | | | | | THERAPY | [place], [place] | for Health | | | | | REFERRAL | [address] | and Healing, | | | | | | | 1st floor | | | | | | | [place], [place] | | | | | | | [address] | | | | | | | Phone: | | | | | | | [phone] | | | | | | | Fax: | | | | | | | [phone] | +--------+--------+ + + + + Encounter [...] Dx) | | | | [facility] | [address] | | | | | [address] | [place], [place] | | | | | Mailcode: [facility] | [address] | | | | | [facility] | | | | | | and Healing, 1st | | | | | | floor [place], [place] | | | | | | [address] | | | | | | [phone] | | | +--------+---------+ + + + [...] might be different from the o prabhainal. 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: Maintenance Assistant MEDICARE Plan: Maintenance Assistant MEDICARE Product Type: P PO Service period from: 05/19/2013 to 01/18/2014 Number visits used/authorized: 06/20 [facility] PHYSICAL THERAPY TREATMENT - [...] Right 07/20/2013 Right 08/11/2013 Flexion 141 155 [id number]* [id number] Pre 125* Post 140 Abduction 146 150 hxx520* [id number] Pre 95* Post 132 ER at 90 [...] exercise program as pt lives in [facility] for posterior do minant shoulder strength Frequency/Duration: Follow up prn due to pt living in [facility], [place] Treatment began: 1031 am Treatment [...] in the student's note. Alise [place], PT [facility] REHABILITATION SERVICES AND HAND THERAPY [address] Mailcode: [place] [address] documented in this encounter Plan of Treatment Not on filedocumented as of this encounter Procedures + +--------+ + + + | Procedure Name | Priori | Date/Time | Associated Diagnosis | Comments | | | ty | | | | + +--------+ + + + | [place] MANUAL THER | Routin | 08/18/2013 | Shoulder pain, | | | TECH,1+REGIONS,EA 15 | e | 6:01 PM | right | | | MIN | | PDT | | | + +--------+ + + + | [place] THERAPEUTIC | Routin | 08/18/2013 | Shoulder [...]
--- OUTSIDE RECORDS SUMMARY | ~2018-07-16 | XMS | Encounter Summary ---
Demographics + + + | Address | [address] | | | [place] [address] | + + + | Home Phone [...] [place] | | | | | [address] | | + + + + + Care Team Providers + +------+ + | Care Energy Derivatives Trader Name | Role | Phone | + [...] | | | | | REFERRAL | [address] | and Healing, | | | | | | Phone: | 1st floor | | | | | | [phone] | [place], [place] | | | | | | Fax: | [address] | | | | | | [phone] | Phone: | | | | | | | [phone] | | | | | | | Fax: | | | | | | | [phone] | +--------+--------+ + + + + Encounter [...] | | | | [facility] | [address] | | | | | [address] | [facility] [place] | | | | | Mailcode: CH3P | [address] | | | | | [facility] | | | | | | and Healing, 1st | | | | | | floor [place], [place] | | | | | | [address] | | | | | | [phone] | | | +--------+---------+ + + + [...] might be different fr om the original. [id number] KEVON WELCH Date of : 1940 Start of care: 07/24/11 Date of onset:07/22/11 Referring/Attending Practitioner: Misael Myers MD . Primary/Referral Diagnosis/ICD-9: Encounter Diagnoses Name Primary? Shoulder pain Yes Insurance: Payor: [employer]amb[employer]S MEDICARE Plan: ODS MEDICARE Product Type: PPO Service period from: 08/24/11-11/22/11 Number visits used/authorized: 8 [facility] PHYSICAL THERAP[facility]: Post-op SHOULDER PO week S/P [...] given: Sidelying EXTERNAL ROTATION With no weight [id number] Standing B EXTERNAL ROTATION With yellow Tband 1x12 (increase up to 3 sets)-verbal TV watching stretch supine with towel rolls supporting weight of elbow x 5 min -reviewed t owel placement and performed for 5 min Standing Ext with yellow Tband [id number] INTERNAL ROTATION Behind the back stretch with [...] as 24 hours in advance by calling [phone]. Our office is open 7am-6pm and there is a [employer] ssage line 24 hours a day. Any [...] therapist regarding any change in their status. ELNA RAIN PT [facility] REHABILITATION SERVICES AND HAND THERAPY [address] Mailcode: [address] And [facility], [address] [place] [address] documented in this e ncounter Plan of Treatment Not on filedocumented as of this encounter Procedures + +--------+ + + + | Procedure Name | Priori | Date/Time | Associated Diagnosis | Comments | | | ty | | | | + +--------+ + + + | [place] MANUAL THER | Routin | 11/13/2011 | Shoulder pain | | | TECH,1+REGIONS,EA 15 | e | 4:58 PM | | | | MIN | | PDT | | | + +--------+ + + + | [place] THERAPEUTIC | Routin | 11/13/2011 | Shoulder [...]
--- OUTSIDE RECORDS SUMMARY | ~2018-07-16 | XMS | Encounter Summary ---
Demographics + + + | Address | [address] | | | [place] [address] | + + + | Home Phone [...] + + + | Author | [facility] | + + + | Organization | [facility] | + + + | Address | Unknown | + + + | Phone | Unavailable | + + + Support + + + + + | Name | Relationship | Address | Phone | + + + + + | Elizabeth Welch | ECON | [address] | | | | | [place] | | | | | [address] | | + + + + + Care Team Providers + +------+ + | Care Storage Manager Name | Role | Phone | [...] | | | | | THERAPY | [facility] [place] | for Health | | | | | REFERRAL | [address] | and Healing, | | | | | | Phone: | 1st floor | | | | | | [phone] | [facility] [place] | | | | | | Fax: | [address] | | | | | | [phone] | Phone: | | | | | | | [phone] | | | | | | | Fax: | | | | | | | [phone] | +--------+--------+ + + + + Encounter Details +--------+---------+ + + + | Date | Type | Department | Care Team | Description | +--------+---------+ + + + | 10/29/ | Office | [facility] | Lena Rain, | Herniated lumbar | | 2011 | Visit | Therapy Services at | PT [address] | intervertebral disc; | | | | [facility] | [address] | 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 [id number] KEVON WELCH Date of : 1940 Start of care: 10/09/2011 Date of onset: 09/10/11 Referring/Attending Practitioner: Alcira Bocanegra PA . Primary/Referral Diagnosis/ICD-9: 722.10H Herniated lumbar intervertebral disc Insurance: Payor: ODS MEDICARE Plan: ODS MEDICARE Product Type: PPO Service period from: 10/09/2011 to: 11/08/11 Number visits used/authorized: 6/ Neurologist: Dr. [facility] [address] [place] [address] (Office) [facility] PHYSICAL THERAPY SUBJECTIVE Age: 71 y.o. [...] month ago. 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 LENA RAIN PT [facility] REHABILITATION SERVICES AND HAND THERAPY [address] Mailcode: [address], [address] [place] [phone] documented in this e ncounter Plan of Treatment Not on filedocumented as of this encounter Procedures + +--------+ + + + | Procedure Name | Priori | Date/Time | Associated Diagnosis | Comments | | | ty | | | | + +--------+ + + + | SD THERAPEUTIC | Routin | 10/30/2011 | Herniated [...] + | SD THERAPEUTIC | Routin | 10/30/2011 | Herniated [...]
--- OUTSIDE RECORDS SUMMARY | ~2018-07-16 | XMS | Clinical Summary ---
Demographics + + + | Address | [address] | | | [place] [address] | + + + | Home Phone | | + + + | Preferred Language | Unknown | + + + | Marital Status | | + + + | Scientologist Affiliation | Unknown | + + + | Race | Unknown | + + + | Ethnic Group | Unknown | + + + Author + + + | Author | [facility] | | | and [place] | + + + | Organization | [facility] | | | and [place] | [...] [place] | | | | | [address] | | + + + + + Care Team Providers + +------+ + | Care Front Office Secretary Name | Role | Phone | + [...] | [employer] | [employer] | [id number] | 02/09/19 | | | [employer] | [...] | | al/Fam | | 1941 | [phone] | [place] [address] | | | lyla | | | 7 (Home) | | + +--------+ +--------+ + + Advance Directives Patient has advance care planning documents on file. For more information, please contact:[facility] [place] [address]
--- OUTSIDE RECORDS SUMMARY | ~2018-07-16 | XMS | Encounter Summary ---
Demographics + + + | Address | [address] | | | [place] [address] | + + + | Home Phone [...] [place] | | | | | [address] | | + + + + + Care Team Providers + +------+ + | Care Hasher Machine Operator Name | Role | Phone [...] | | | | | THERAPY | [facility] [place] | for Health | | | | | REFERRAL | [address] | and Healing, | | | | | | Phone: | 1st floor | | | | | | [phone] | [place], [place] | | | | | | Fax: | [address] | | | | | | [phone] | Phone: | | | | | | | [phone] | | | | | | | Fax: | | | | | | | [phone] | +--------+--------+ + + + + Encounter [...] | | | [facility] | [address] | | | | | [address] | [facility] [place] | | | | | Mailcode: CH3P | [address] | | | | | [facility] | | | | | | and Healing, 1st | | | | | | floor [place], [place] | | | | | | [address] | | | | | | [phone] | | | +--------+---------+ + + + [...] might be different fr om the original. [id number] KEVON WELCH Date of : 1940 Start of care: 07/24/11 Date of onset:07/22/11 Referring/Attending Practitioner: Misael Myers MD . Primary/Referral Diagnosis/ICD-9: Encounter Diagnoses Name Primary? Shoulder pain Yes Insurance: Payor: [employer] MEDICARE Plan: ODS MEDICARE Product Type: PPO Service period from: 08/24/11-11/22/11 Number visits used/authorized: 8 [facility] PHYSICAL THERAPY: Post-op SHOULDER PO week [...] given: Sidelying EXTERNAL ROTATION With no weight [id number] Standing B EXTERNAL ROTATION With yellow Tband 1x12 (increase up to 3 sets)-verbal TV watching stretch supine with towel rolls supporting weight of elbow x 5 min -reviewed t owel placement and performed for 5 min Standing Ext with yellow Tband 5k24-iixphw INTERNAL ROTATION Behind the back stretch with [...] as 24 hours in advance by calling [phone]. Our office is open 7am-6pm and there is a [employer] ssage line 24 hours a day. Any [...] change in their status. LENA RAIN PT [facility] REHABILITATION SERVICES AND HAND THERAPY [address] Mailcode: [address] And [facility], [address] [place] [phone] documented in this e ncounter Plan of Treatment Not on filedocumented as of this encounter Procedures + +--------+ + + + | Procedure Name | Priori | Date/Time | Associated Diagnosis | Comments | | | ty | | | | + +--------+ + + + | [place] MANUAL THER | Routin | 11/13/2011 | Shoulder pain | | | TECH,1+REGIONS,EA 15 | e | 4:58 PM | | | | MIN | | PDT | | | + +--------+ + + + | [place] THERAPEUTIC | Routin | 11/13/2011 | Shoulder [...]
--- OUTSIDE RECORDS SUMMARY | ~2018-07-16 | XMS | Encounter Summary ---
Demographics + + + | Address | [address] | | | [place] [address] | + + + | Home Phone [...] [place] | | | | | [address] | | + + + + + Care Team Providers + +------+ + | Care Rubber Vulcanizing Machine Operator Name | Role | Phone [...] | | | | | Procedures | [facility] | Mailcode: | | | | | PHYSICAL | Rd | [facility] | | | | | THERAPY | [place], [place] | for Health | | | | | REFERRAL | [address] | and Healing, | | | | | | | 1st floor | | | | | | | [place], [place] | | | | | | | [address] | | | | | | | Phone: | | | | | | | [phone] | | | | | | | Fax: | | | | | | | [phone] | +--------+--------+ + + + + Encounter [...] | [facility] | [address] | | | | | [address] | [place], [place] | | | | | Mailcode: CH3P | [address] | | | | | [facility] | | | | | | and Ned, 1st | | | | | | floor [place], [place] | | | | | | [address] | | | | | | [phone] | | | +--------+---------+ + + + [...] [place], PT - 07/20/2013 2:33 PM PDT [id number] KEVON WELCH Date of : 1940 Start of care: 05/19/2013 Date of onset: 03/21/2013 Referring/Attending Practitioner: Misael Myers Primary/Referral Diagnosis/ICD-9: Shoulder pain (primary encounter diagnosis) Insurance: Payor: [employer] ODS MEDICARE Plan: [employer] MEDICARE Product Type: P PO Service period from: 05/19/2013 to - Number visits used/authorized: 3- [facility] PHYSICAL THERAPY TREATMENT - [place]THO SUBJECTIVE: Current: Right shoulder is so-so. Has been traveling in [place], [place], and [place]. Di fficulty lifting suitcase to overhead bin and pulling through city. Stopped taking ibuprofe n and had spontaneous bruising - will call PCP once home in [facility]. Noticed minimal sivla ge in shoulder motion and has continued [...] Right Left Right 07/20/2013 Flexion 141 155 pdm435* [id number] Abduction 146 150 [id number]* [id number] ER at 90 deg abd 90 (60 [...] home exercise program as pt lives in [place], [place] for posterior do minant shoulder strength Frequency/Duration: Follow up prn due to pt living in [place], [place] and traveling to [facility] for 4 weeks Treatment began: 0230 pm Treatment ended: 0315 pm This note is to serve as the discharge summary if Kevon fails to attend further Physical Th erapy appointments or contact the therapist regarding any change in their status. Alise [place], PT [facility] REHABILITATION SERVICES AND HAND THERAPY [address] Mailcode: [place] [address] documented in this encounter Plan of Treatment Not on filedocumented as of this encounter Procedures + +--------+ + + + | Procedure Name | Priori | Date/Time | Associated Diagnosis | Comments | | | ty | | | | + +--------+ + + + | [place] MANUAL THER | Routin | 07/20/2013 | [...]
--- OUTSIDE RECORDS SUMMARY | ~2018-07-16 | XMS | Encounter Summary ---
Demographics + + + | Address | [address] | | | [place] [address] | + + + | Home Phone [...] [place] | | | | | [address] | | + + + + + Care Team Providers + +------+ + | Care Draw Operator Name | Role | Phone | [...] | | | | | PHYSICAL | [facility] [place] | [facility] | | | | | THERAPY | [address] | for Health | | | | | REFERRAL | Phone: | and Healing, | | | | | | [phone] | 1st floor | | | | | | Fax: | [place], [place] | | | | | | [phone] | [address] | | | | | | | Phone: | | | | | | | [phone] | | | | | | | Fax: | | | | | | | [phone] | +--------+--------+ + + + + Encounter [...] | [facility] | [address] | | | | | [address] | [place], [place] | | | | | Mailcode: CH3P | [address] | | | | | [facility] | | | | | | and Healing, 1st | | | | | | floor [facility] [place] | | | | | | [address] | | | | | | [phone] | | | +--------+---------+ + + + [...] might be different fr om the original. [id number] KEVON WELCH Date of : 1940 Start of care: 07/24/11 Date of onset:07/22/11 Referring/Attending Practitioner: Misael Myers MD . Primary/Referral Diagnosis/ICD-9: Encounter Diagnoses Name Primary? Shoulder pain Yes Insurance: Payor: ODS MEDICARE Plan: ODS MEDICARE Product Type: PPO Service period from: 08/24/11-10/23/11 Number visits used/authorized: 6 [facility] PHYSICAL THERAPY: [...] request that all cancellations be made at [facility] 24 hours in advance by calling [phone]. Our office is open 7am-6pm and there is a [email or web address] line 24 hours a day. Any appointment [...] in their status. LENA RAIN PT [facility] REHABILITATION SERVICES AND HAND THERAPY [address] Mailcode: [address] [address] documented in this e ncounter Plan of Treatment Not on filedocumented as of this encounter Procedures + +--------+ + + + | Procedure Name | Priori | Date/Time | Associated Diagnosis | Comments | | | ty | | | | + +--------+ + + + | [place] MANUAL THER | Routin | 09/08/2011 | Shoulder pain | | | TECH,1+GERHARD,EA 15 | e | 10:41 AM | | | | MIN | | PDT | | | + +--------+ + + + | [place] THERAPEUTIC | Routin | 09/08/2011 | Shoulder [...]
--- OUTSIDE RECORDS SUMMARY | ~2018-07-16 | XMS | Clinical Summary ---
Demographics + + + | Address | [address] | | | [place] [address] | + + + | Home Phone | | + + + | Preferred Language | Unknown | + + + | Marital Status | | + + + | Latter Day Affiliation | Unknown | + + + | Race | Unknown | + + + | Ethnic Group | Unknown | + + + Author + + + | Author | [facility] | | | and [place] | + + + | Organization | [facility] | | | and [place] | [...] [place] | | | | | [address] | | + + + + + Care Team Providers + +------+ + | Care Paint Mixer Hand Name | Role | Phone | [...] | [employer] | [employer] | [id number] | 02/09/19 | | | Medica | [...] | | al/Fam | | 1941 | [phone] | [place] [address] | | | lyla | | | 7 (Home) | | + +--------+ +--------+ + + Advance Directives Patient has advance care planning documents on file. For more information, please contact:Located within [facility] [place] [address]
--- OUTSIDE RECORDS SUMMARY | ~2018-07-16 | XMS | Encounter Summary ---
Demographics + + + | Address | [address] | | | [place] [address] | + + + | Home Phone [...] [place] | | | | | [address] | | + + + + + Care Team Providers + +------+ + | Care Genomics Scientist Name | Role | Phone | + [...] | | | | | PHYSICAL | [facility] [place] | [facility] | | | | | THERAPY | [address] | for Health | | | | | REFERRAL | Phone: | and Healing, | | | | | | [phone] | 1st floor | | | | | | Fax: | [place], [place] | | | | | | [phone] | [address] | | | | | | | Phone: | | | | | | | [phone] | | | | | | | Fax: | | | | | | | [phone] | +--------+--------+ + + + + Encounter Details +--------+---------+ + + + | Date | Type | Department | Care Team | Description | +--------+---------+ + + + | 08/03/ | Office | [facility] Physical | Lena Rain, | Shoulder pain | | 2011 | Visit | Therapy Services at | PT [address] | (Primary Dx) | | | | [facility] | [address] | | | | | [address] | [place], [place] | | | | | Mailcode: CH3[facility] | [address] | | | | | [facility] | | | | | | and Healing, 1st | | | | | | floor [facility] [place] | | | | | | [address] | | | | | | [phone] | | | +--------+---------+ + + + [...] might be different fr om the original. [id number] KEVON WELCH Date of : 1940 Start of care: 07/24/11 Date of onset:07/22/11 Referring/Attending Practitioner: Misael Myers MD . Primary/Referral Diagnosis/ICD-9: Encounter Diagnoses Name Primary? Shoulder pain Yes Insurance: Payor: ODS MEDICARE Plan: ODS MEDICARE Product Type: PPO Service period from: 07/24/11-08/23/11 Number visits used/authorized: 2 [facility] PHYSICAL THERAPY: Post-op SHOULDER POST [...] weeks Treatment began: 1345 Treatment ended: 1420; [phone] for game ready Reviewed cancel/no show policy with patient. Pt voiced understanding. "At times we understand you must cancel. We request that all cancellations be made at [facility] t 24 hours in advance by calling [phone]. Our office is open 7am-6pm and there is a [employer] [place] line 24 hours a day. Any appointment [...] change in their status. LENA RAIN PT [facility] REHABILITATION SERVICES AND HAND THERAPY [address] Mailcode: [address] And [facility], [address] [place] [phone] documented in this e ncounter Plan of Treatment Not on filedocumented as of this encounter Procedures + +--------+ + + + | Procedure Name | Priori | Date/Time | Associated Diagnosis | Comments | | | ty | | | | + +--------+ + + + | DC MANUAL THER | Routin | 08/05/2011 | Shoulder pain | | | TECH,1+REGIONS,EA 15 | e | 4:04 PM | | | | MIN | | PDT | | | + +--------+ + + + | DC THERAPEUTIC | Routin | 08/05/2011 | Shoulder [...]
--- OUTSIDE RECORDS SUMMARY | ~2018-07-16 | XMS | Encounter Summary ---
Demographics + + + | Address | [address] | | | [place] [address] | + + + | Home Phone [...] + + + + + | Elizabeth eWlch | ECON | [address] | | | | | [place] | | | | | [address] | | + + + + + Care Team Providers + +------+ + | Care Director Of Exhibit Development Name | Role | Phone | + [...] | | | | | THERAPY | [place], [place] | for Health | | | | | REFERRAL | [address] | and Healing, | | | | | | | 1st floor | | | | | | | [place], [place] | | | | | | | [address] | | | | | | | Phone: | | | | | | | [phone] | | | | | | | Fax: | | | | | | | [phone] | +--------+--------+ + + + + Encounter Details +--------+---------+ + + + | Date | Type | Department | Care Team | Description | +--------+---------+ + + + | 05/19/ | Office | [facility] Physical | Rupesh, | Shoulder pain | | 2013 | Visit | Therapy Services at | Alise, PT [address] | (Primary Dx) | | | | [facility] | [address] | | | | | [address] | [place], [place] | | | | | Mailcode: CH3P | [address] | | | | | [facility] | | | | | | and Ned, 1st | | | | | | floor [place], [place] | | | | | | [address] | | | | | | [phone] | | | +--------+---------+ + + + [...] [place], PT - 05/19/2013 12:23 PM PDT [id number] KEVON WELCH Date of : 1940 Start of care: 05/19/2013 Date of onset: 03/21/2013 Referring/Attending Practitioner: Misael Myers Primary/Referral Diagnosis/ICD-9: Shoulder pain (primary encounter diagnosis) Insurance: Payor: [employer] ODS MEDICARE Plan: [employer] MEDICARE Product Type: P PO Service period from: 05/19/2013 to - Number visits used/authorized: 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 Alise [place], Pt [facility] REHABILITATION SERVICES AND HAND THERAPY [address] Mailcode: [address] [address] documented in this encounter Plan of Treatment Not on filedocumented as of this encounter Procedures + +--------+ + + + | Procedure Name | Priori | Date/Time | Associated Diagnosis | Comments | | | ty | | | | + +--------+ + + + | [facility] THERAPEUTIC | Routin | 05/19/2013 | Shoulder pain | | | EXERCISES | e | 3:30 PM | | | | | | PDT | | | + +--------+ + + + | [facility] PHYS THERAPY | Routin | 05/19/2013 | [...]
--- OUTSIDE RECORDS SUMMARY | ~2018-07-16 | XMS | Clinical Summary ---
Demographics + + + | Address | [address] | | | [place] [address] | + + + | Home Phone | | + + + | Preferred Language | Unknown | + + + | Marital Status | | + + + | Nondenominational Affiliation | Unknown | + + + | Race | Unknown | + + + | Ethnic Group | Unknown | + + + Author + + + | Author | [facility] | | | and [place]ie[place] | + + + | Organization | [facility] | | | and [...] [place] | | | | | [address] | | + + + + + Care Team Providers + +------+ + | Care Service Desk Manager Name | Role | Phone | [...] | [employer] | [employer] | [id number] | 02/09/19 | | | Medica | [...] | | al/Fam | | 1941 | [phone] | [place] [address] | | | lyla | | | 7 (Home) | | + +--------+ +--------+ + + Advance Directives Patient has advance care planning documents on file. For more information, please contact:[facility] and [facility] [place] [address]
--- OUTSIDE RECORDS SUMMARY | ~2018-07-16 | XMS | Encounter Summary ---
Demographics + + + | Address | [address] | | | [place] [address] | + + + | Home Phone | | + + + | Preferred Language | Unknown | + + + | Marital Status | | + + + | Evangelical Affiliation | NON | + + + | Race | White | + + + | Ethnic Group | Not or | + + + Author + + + | Author | [facility] | + + + | Organization | [facility] | + + + | Address | Unknown | + + + | Phone | Unavailable | + + + Support + + + + + | Name | Relationship | Address | Phone | + + + + + | Elizabeth Welch | ECON | [address] | | | | | [place] | | | | | [address] | | + + + + + Care Team Providers + +------+ + | Care Medical Underwriter Name | Role | Phone | [...] W | appointment | | | | [facility] | [address] | | | | | [address] | [place], [place] | | | | | Mailcode: [facility] | [address] | | | | | [facility] | | | | | | and Healing, 1st | | | | | | floor [place], [place] | | | | | | [address] | | | | | | [phone] | | | +--------+ + + + [...]
--- OUTSIDE RECORDS SUMMARY | ~2018-07-16 | XMS | Encounter Summary ---
Demographics + + + | Address | [address] | | | [place] [address] | + + + | Home Phone [...] [place] | | | | | [address] | | + + + + + Care Team Providers + +------+ + | Care Computer Networking Instructor Name | Role | Phone | + +------+ + | Doyle Johnson MD | PCP | Unavailable | + +------+ + Encounter Details +--------+ + + + + | Date | Type | Department | Care Team | Description | +--------+ + + + + | 07/21/ | Telephone | Orthopaedics at | Misael Myers MD | | | 2011 | | [facility] [address] | [address] [facility] | | | | | [place] Mailcode: [facility] | [address] | | | | | [place] for [facility] | [place], [place] | | | | | and | [address] | | | | | Floor [place], [place] | [phone] | | | | | [address] | | | | | | [phone] | | | +--------+ + + + [...]
--- OUTSIDE RECORDS SUMMARY | ~2018-07-16 | XMS | Encounter Summary ---
Demographics + + + | Address | [address] | | | [place] [address] | + + + | Home Phone [address] | | | | | [place] | | | | | [address] | | + + + + + Care Team Providers + +------+ + | Care Land Law Examiner Name | Role | Phone | + [...] | intervertebral disc | | | | [facility] | [facility] | (Primary Dx) | | | | [address] | Road [place], [place] | | | | | Mailcode: [facility] | [address] | | | | | [facility] | | | | | | and Healing, [facility] | | | | | | floor [place], [place] | | | | | | [address] | | | | | | [phone] | | | +--------+---------+ + + + [...] Dailey, PT - 10/10/2011 1:41 PM PDT [id number] KEVON WELCH Date of : 1940 Start of care: 10/09/2011 Date of onset: 09/10/11 Referring/Attending Practitioner: Alcira Bocanegra PA . Primary/Referral Diagnosis/ICD-9: 722.10H Herniated lumbar intervertebral disc Insurance: Payor: ODS MEDICARE Plan: ODS MEDICARE Product Type: PPO Service period from: 10/09/2011 to: 11/08/11 Number visits used/authorized: 1/ Neurologist: Dr. Rafal Benites [address] [address] (Office) [facility] PHYSICAL THERAPY SUBJECTIVE Age: 71 y.o. Sex: male Chief complaint: Today's report: 03/21. Walking. Foot drop. 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 No lying on stomach since 8 years o ld due to back pain History of Presenting Problems: Kevon Welch is a 71 y.o. male with c/o LBP that began about a month ago. He was bending over to brick picker a garden hose and felt increased [...] + | SC THERAPEUTIC | Routin | 10/10/2011 | Herniated [...]
--- OUTSIDE RECORDS SUMMARY | ~2018-07-16 | XMS | Encounter Summary ---
Demographics + + + | Address | [address] | | | [place] [address] | + + + | Home Phone [...] [place] | | | | | [address] | | + + + + + Care Team Providers + +------+ + | Care Loan Collector Name | Role | Phone | [...] | Telephone | [facility] Physical | Philly aRin, | Shoulder pain | | 2011 | | Therapy Services at | PT [address] | | | | | [facility] | [address] | | | | | [address] | [place], [place] | | | | | Mailcode: CH3P | [address] | | | | | [facility] | | | | | | and Healing, 1st | | | | | | floor [place], [place] | | | | | | [address] | | | | | | [phone] | | | +--------+ + + + [...]
--- OUTSIDE RECORDS SUMMARY | ~2018-07-16 | XMS | Encounter Summary ---
Demographics + + + | Address | [address] | | | [place] [address] | + + + | Home Phone [...] [place] | | | | | [address] | | + + + + + Care Team Providers + +------+ + | Care Underwater Hunter Name | Role | Phone | + [...] | | sprain | REFERRING | [address] [place], | | | | | Osteoarthros | PROVIDER PER | [place] | | | | | [place], | [place] | [address] | | | | | unspecified | | Phone: | | | | | whether | | [phone] | | | | | generalized | | Fax: | | | | | or | | [phone] | | | | | localized, | [...] | | | | | | | STRICKLER ATTENDANT | | | | | | | [...] | | | Ave Mailcode: CH12A | [place], [place] | | | | | [facility] | [address] | | | | | and [facility] | [phone] | | | | | Floor [place], [place] | | | | | | [address] | | | | | | [phone] | | | +--------+---------+ + + + [...]
--- OUTSIDE RECORDS SUMMARY | ~2018-07-16 | XMS | Encounter Summary ---
Demographics + + + | Address | [address] | | | [place] [address] | + + + | Home Phone [...] [place] | | | | | [address] | | + + + + + Care Team Providers + +------+ + | Care Bilingual Customer Service Specialist Name | Role | Phone | [...] | | | | | REFERRAL | [address] | and Healing, | | | | | | Phone: | 1st floor | | | | | | [phone] | [facility] [place] | | | | | | Fax: | [address] | | | | | | [phone] | Phone: | | | | | | | [phone] | | | | | | | Fax: | | | | | | | [phone] | +--------+--------+ + + + + Encounter Details +--------+---------+ + + + | Date | Type | Department | Care Team | Description | +--------+---------+ + + + | 10/29/ | Office | [facility] Physical | Lena Rain, | Herniated lumbar | | 2011 | Visit | Therapy Services at | PT [address] | intervertebral disc; | | | | [facility] | [address] | 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 [id number] KEVON WELCH Date of : 1940 Start of care: 10/09/2011 Date of onset: 09/10/11 Referring/Attending Practitioner: Alcira Bocanegra PA . Primary/Referral Diagnosis/ICD-9: 722.10H Herniated lumbar intervertebral disc Insurance: Payor: ODS MEDICARE Plan: ODS MEDICARE Product Type: PPO Service period from: 10/09/2011 to: 11/08/11 Number visits used/authorized: 6/ Neurologist: Dr. [facility] [address] [place] [address] (Office) [facility] PHYSICAL THERAPY SUBJECTIVE Age: 71 y.o. Sex: [...] month ago. He was bending over to bead picker a garden hose and felt increased [...] Social History: lives with Recreational Activities/Hobbies: plays [employer]; reading; does a lot of computer/keyboarding Functional [...] change in their status. LENA RAIN PT [facility] REHABILITATION SERVICES AND HAND THERAPY [address] Mailcode: [address], [address] [place] [phone] documented in this e ncounter Plan of Treatment Not on filedocumented as of this encounter Procedures + +--------+ + + + | Procedure Name | Priori | Date/Time | Associated Diagnosis | Comments | | | ty | | | | + +--------+ + + + | PA THERAPEUTIC | Routin | 10/30/2011 | Herniated [...] + | PA THERAPEUTIC | Routin | 10/30/2011 | Herniated [...]
--- OUTSIDE RECORDS SUMMARY | ~2018-07-16 | XMS | Encounter Summary ---
Demographics + + + | Address | [address] | | | [place] [address] | + + + | Home Phone | | + + + | Preferred Language | Unknown | + + + | Marital Status | | + + + | Denominational Affiliation | NON | + + + | Race | White | + + + | Ethnic Group | Not or | + + + Author + + + | Author | [facility] | + + + | Organization | [facility] | + + + | Address | Unknown | + + + | Phone | Unavailable | + + + Support + + + + + | Name | Relationship | Address | Phone | + + + + + | Elizabeth Welch | ECON | [address] | | | | | [place] | | | | | [address] | | + + + + + Care Team Providers + +------+ + | Care Ecologist Name | Role | Phone | + +------+ + | Doyle Johnson MD | PCP | Unavailable | + +------+ + Encounter Details +--------+ + + + + | Date | Type | Department | Care Team | Description | +--------+ + + + + | 07/21/ | Telephone | Orthopaedics at | Misael Myers MD | | | 2011 | | [facility] [address] | [address] [facility] | | | | | [place] Mailcode: CH12A | [address] | | | | | [place] for [facility] | [place], [place] | | | | | and | [address] | | | | | Floor [place], [place] | [phone] | | | | | [address] | | | | | | [phone] | | | +--------+ + + + [...]
--- OUTSIDE RECORDS SUMMARY | ~2018-07-16 | XMS | Clinical Summary ---
Demographics + + + | Address | [address] | | | [place] [address] | + + + | Home Phone | | + + + | Preferred Language | Unknown | + + + | Marital Status | | + + + | Jewish Affiliation | Unknown | + + + | Race | Unknown | + + + | Ethnic Group | Unknown | + + + Author + + + | Author | [facility] | + + + | Organization | [facility] | + + + | Address | [...] Team Providers + +------+ + | Care Amusement Ride Inspector Name | Role | Phone | [...] | MA - GENERIC | MA-GEN | [id number] | Medica | | | | | [...] | | al/Fam | | 1941 | [phone] | [place] | | | [place]yla | | | [phone] | [phone] | + +--------+ +--------+ + +
--- OUTSIDE RECORDS SUMMARY | ~2018-07-16 | XMS | Encounter Summary ---
Demographics + + + | Address | [address] | | | [place] [address] | + + + | Home Phone [...] [place] | | | | | [address] | | + + + + + Care Team Providers + +------+ + | Care Hydro Technician Name | Role | Phone | [...] | | | | | THERAPY | [address] | for Health | | | | | REFERRAL | Phone: | and Healing, | | | | | | [phone] | 1st floor | | | | | | Fax: | [place], [place] | | | | | | [phone] | [address] | | | | | | | Phone: | | | | | | | [phone] | | | | | | | Fax: | | | | | | | [phone] | +--------+--------+ + + + + Encounter [...] | | [facility] | [address] | | | | | [address] | [place], [place] | | | | | Mailcode: CH3P | [address] | | | | | [facility] | | | | | | and Healing, 1st | | | | | | floor [facility] [place] | | | | | | [address] | | | | | | [phone] | | | +--------+---------+ + + + [...] might be different fr om the original. [id number] KEVON WELCH Date of : 1940 Start of care: 07/24/11 Date of onset:07/22/11 Referring/Attending Practitioner: Misael Myers MD . Primary/Referral Diagnosis/ICD-9: Encounter Diagnoses Name Primary? Shoulder pain Yes Insurance: Payor: ODS MEDICARE Plan: ODS MEDICARE Product Type: PPO Service period from: 07/24/11-08/23/11 Number visits used/authorized: 3 [facility] PHYSICAL THERAPY: Post-op SHOULDER PO week 4 [...] oes not hurt History of Presenting Problem: Kveon Welch is a 70 y.o. male who [...] request that all cancellations be made at [facility] 24 hours in advance by calling [phone]. Our office is open 7am-6pm and there is a [employer] ssage line 24 hours a day. Any [...] change in their status. LENA RAIN PT [facility] RE[facility]IL[facility] AND HAND THERAPY [address] Mailcode: [address] And [facility], [address] [place] [phone] documented in this e ncounter Plan of Treatment Not on filedocumented as of this encounter Procedures + +--------+ + + + | Procedure Name | Priori | Date/Time | Associated Diagnosis | Comments | | | ty | | | | + +--------+ + + + | SC MANUAL THER | Routin | 08/20/2011 | Shoulder pain | | | TECH,1+GERHARD,EA 15 | e | 12:40 PM | | | | MIN | | PDT | | | + +--------+ + + + | SC THERAPEUTIC | Routin | 08/20/2011 | Shoulder [...]
--- OUTSIDE RECORDS SUMMARY | ~2018-07-16 | XMS | Encounter Summary ---
Demographics + + + | Address | [address] | | | [place] [address] | + + + | Home Phone [...] [place] | | | | | [address] | | + + + + + Care Team Providers + +------+ + | Care Counter Attendant Name | Role | Phone | + [...] | [address] | [place], [place] | | | | | Mailcode: CH3P | [address] | | | | | [facility] | | | | | | and Healing, 1st | | | | | | floor [place], [place] | | | | | | [address] | | | | | | [phone] | | | +--------+---------+ + + + [...] [place], PT - 09/22/2013 9:46 AM PDT [id number] KEVON WELCH Date of : 1940 Start of care: 05/19/2013 Date of onset: 03/21/2013 Referring/Attending Practitioner: Misael Myers Primary/Referral Diagnosis/ICD-9: Shoulder pain, right (primary encounter diagnosis) Insurance: Payor: [employer] MEDICARE Plan: [employer] MEDICARE Product Type: P PO Service period from: 05/19/2013 to 01/18/2014 Number visits used/authorized: 08/20 [facility] PHYSICAL THERAPY TREATMENT - ORTHO SUBJECTIVE: [...] Right 08/11/2013 Right 09/22/2013 Flexion 141 155 [id number]* [id number] Pre 125* Post 140 145 Abduction 146 150 [id number]* [id number] Pre 95* Post 132 144 ER at [...] home exercise program as pt lives in [facility], [place] for posterior do minant shoulder strength Frequency/Duration: Follow up prn due to pt living in [facility], [place] Treatment began: 946 am Treatment ended: 1031 am This note is to serve as the discharge summary if Kevon fails to attend further Physical Th erapy appointments or contact the therapist regarding any change in their status. Alise [place], PT [facility] REHABILITATION SERVICES AND HAND THERAPY [address] Mailcode: [address] [address] documented in this encounter Plan of Treatment Not on filedocumented as of this encounter Procedures + +--------+ + + + | Procedure Name | Priori | Date/Time | Associated Diagnosis | Comments | | | ty | | | | + +--------+ + + + | [place] MANUAL THER | Routin | 09/22/2013 | Shoulder pain, | | | TECH,1+REGIONS,EA 15 | e | 12:19 PM | right | | | MIN | | PDT | | | + +--------+ + + + | [place] THERAPEUTIC | Routin | 09/22/2013 | Shoulder [...]
--- OUTSIDE RECORDS SUMMARY | ~2018-07-16 | XMS | Encounter Summary ---
Demographics + + + | Address | [address] | | | [place] [address] | + + + | Home Phone [...] [place] | | | | | [address] | | + + + + + Care Team Providers + +------+ + | Care Teller Name | Role | Phone | + [...] | | | | | Procedures | [facility] | Mailcode: | | | | | PHYSICAL | Rd | [facility] | | | | | THERAPY | [place], [place] | for Health | | | | | REFERRAL | [address] | and Healing, | | | | | | | 1st floor | | | | | | | [place], [place] | | | | | | | [address] | | | | | | | Phone: | | | | | | | [phone] | | | | | | | Fax: | | | | | | | [phone] | +--------+--------+ + + + + Encounter Details +--------+---------+ + + + | Date | Type | Department | Care Team | Description | +--------+---------+ + + + | 11/16/ | Office | [place] Physical | Rupesh, | Shoulder pain, right | | 2013 | Visit | Therapy Services at | Alise, PT [address] | (Primary Dx) | | | | [facility] | [address] | | | | | [address] | [place], [place] | | | | | Mailcode: [facility] | [address] | | | | | [facility] | | | | | | and Healing, 1st | | | | | | floor [place], [place] | | | | | | [address] | | | | | | [phone] | | | +--------+---------+ + + + [...] [place], PT - 11/16/2013 11:25 AM PDT [id number] KEVON WELCH Date of : 1940 Start of care: 05/19/2013 Date of onset: 03/21/2013 Referring/Attending Practitioner: Misael Myers Primary/Referral Diagnosis/ICD-9: Shoulder pain, right (primary encounter diagnosis) Insurance: Payor: [employer] MEDICARE Plan: [employer] MEDICARE Product Type: P PO Service period from: 05/19/2013 to 01/18/2014 Number visits used/authorized: 10/21 [facility] PHYSICAL THERAPY TREATMENT - [...] Right 09/22 Right/Left 10/18/2013 Flexion 141 155 [id number]* [id number] Pre 125* Post 140 145 145/150 Abduction 146 150 [id number]* [id number] Pre 95* Post 132 144 140/145 ER [...] home exercise program as pt lives in [place], [place] for posterior do minant shoulder strength Frequency/Duration: Follow up prn due to pt living in [facility] Treatment began: 1125 am Treatment ended: 1210 pm This note is to serve as the discharge summary if Kevon fails to attend further Physical Th erapy appointments or contact the therapist regarding any change in their status. Alise [place], PT [facility] RE[facility]ABIL[facility] AND HAND THERAPY [address] Mailcode: [place] [address] documented in this encounter Plan of Treatment Not on filedocumented as of this encounter Procedures + +--------+ + + + | Procedure Name | Priori | Date/Time | Associated Diagnosis | Comments | | | ty | | | | + +--------+ + + + | [place] MANUAL THER | Routin | 11/16/2013 | Shoulder pain, | | | TECH,1+REGIONS,EA 15 | e | 12:50 PM | right | | | MIN | | PDT | | | + +--------+ + + + | [place] THERAPEUTIC | Routin | 11/16/2013 | Shoulder [...]
--- OUTSIDE RECORDS SUMMARY | ~2018-07-16 | XMS | Encounter Summary ---
Demographics + + + | Address | [address] [place] [address] | | | [place] [address] | + + + | Home Phone [...] [place] | | | | | [address] | | + + + + + Care Team Providers + +------+ + | Care Membership Sales Manager Name | Role | Phone | + +------+ + | Doyle Johnson MD | PCP | Unavailable | + +------+ + Encounter Details +--------+ + + + + | Date | Type | Department | Care Team | Description | +--------+ + + + + | 06/29/ | Anesthesia | Preoperative | Lida Houser, | | | 2011 | Event | [facility] at | ANP [address] | | | | | [facility] 4th Floor [address] | | | | | [address] | [place], [place] | | | | | Code: [address] | [address] | | | | | for Health and | [phone] | | | | | Healing,4th Floor | | | | | | [place], [place] | | | | | | [address] | | | | | | [phone] | | | +--------+ + + + [...]
--- OUTSIDE RECORDS SUMMARY | ~2018-07-16 | XMS | Encounter Summary ---
Demographics + + + | Address | [address] | | | [place] [address] | + + + | Home Phone [...] [place] | | | | | [address] | | + + + + + Care Team Providers + +------+ + | Care Incident Commander Name | Role | Phone | + [...] | | shoulder | Provider Per | [address] | | | | | pain | Patient NO | [address] Morales | | | | | | REFERRING | Rd [place], | | | | | | PROVIDER PER | [place] | | | | | | [place] | [address] | | | | | | | Phone: | | | | | | | [phone] | | | | | | | Fax: | | | | | | | [phone] | +--------+--------+ + + + + Encounter Details +--------+---------+ + + + | Date | Type | Department | Care Team | Description | +--------+---------+ + + + | 04/27/ | Office | Orthopaedics at | Misael Myers MD | Shoulder pain | | 2011 | Visit | [facility] [address] | [address] | (Primary Dx); | | | | Ave Mailcode: CH12A | [address] | Rotator cuff | | | | [facility] | [place], [place] | tendinitis; | | | | and | [address] | Osteoarthrosis, | | | | Floor [place], [place] | [phone] | unspecified whether | | | | [address] | | generalized or | | | | [phone] | | localized, shoulder | | | [...] S: Pt undergoing PT at clinic in [place] 200 miles from here; has been seen [...] RX as appropriate LENA RAIN PT [facility] [address] Mailcode: Ch12a [facility], [address] [place] [address] Misael Vega MD - 04/28/2011 11:09 [...]
--- OUTSIDE RECORDS SUMMARY | ~2018-07-16 | XMS | Encounter Summary ---
Demographics + + + | Address | [address] | | | [place] [address] | + + + | Home Phone [...] [place] | | | | | [address] | | + + + + + Care Team Providers + +------+ + | Care Supervisor Weaving Name | Role | Phone | + [...] | | shoulder | Provider Per | [address] | | | | | pain | Patient NO | [address]ales | | | | | | REFERRING | Dejan Onofre | | | | | | PROVIDER PER | [place] | | | | | | PT | [address] | | | | | | | Phone: | | | | | | | [phone] | | | | | | | Fax: | | | | | | | [phone] | +--------+--------+ + + + + Encounter Details +--------+---------+ + + + | Date | Type | Department | Care Team | Description | +--------+---------+ + + + | 06/29/ | Office | Orthopaedics at | Katty Chairez PA | Other specified | | 2011 | Visit | [facility] [address] | [address] | pre-operative | | | | Ave Mailcode: CH12A | [place], [place] | examination (Primary | | | | [place] [facility] | [address] | Dx) | | | | and Healing, 12th | [phone] | | | | | Floor [place], [place] | | | | | | [address] | | | | | | [phone] | | | +--------+---------+ + + + [...] take place on the hill at the [facility]: Surgeries scheduled in the [facility] (4 North): registration is located on the 4th floor of [facility] (Day Surgery). Surgeries scheduled in the [facility]: registration is located on the 9th floor. Surgeries scheduled in [facility]: registration is located on the 6th floor. Surgeries scheduled in the [facility]: registration is located i n the [facility] on the first floor. For surgeries scheduled to take place at the [facility]: registration is l [...] If you use specialized medical equipment at [facility], please check with your provider before [...]
--- OUTSIDE RECORDS SUMMARY | ~2018-07-16 | XMS | Encounter Summary ---
Demographics + + + | Address | [address] | | | [place] [address] | + + + | Home Phone | | + + + | Preferred Language | Unknown | + + + | Marital Status | | + + + | Voodoo Affiliation | NON | + + + [...] [place] | | | | | [address] | | + + + + + Care Team Providers + +------+ + | Care Evaluation Engineer Name | Role | Phone | [...] | | | | | THERAPY | [address] | for Health | | | | | REFERRAL | Phone: | and Healing, | | | | | | [phone] | 1st floor | | | | | | Fax: | [place], [place] | | | | | | [phone] | [address] | | | | | | | Phone: | | | | | | | [phone] | | | | | | | Fax: | | | | | | | [phone] | +--------+--------+ + + + + Encounter Details +--------+---------+ + + + | Date | Type | Department | Care Team | Description | +--------+---------+ + + + | 05/28/ | Office | [facility] | Lena Rain, | Shoulder pain | | 2011 | Visit | Therapy Services at | PT [address] | (Primary Dx) | | | | [facility] | [address] | | | | | [address] | [place], [place] | | | | | Mailcode: CH3P | [address] | | | | | [facility] | | | | | | and Healing, 1st | | | | | | floor [facility] [place] | | | | | | [address] | | | | | | [phone] | | | +--------+---------+ + + + [...] might be different fr om the original. [id number] KEVON WELCH Date of : 1940 Start [...] change in their status. LENA RAIN, PT [facility] AND HAND THERAPY [address] Mailcode: [address] [facility], 1st Floor [facility] [address] documented in this e ncounter Plan of [...]
--- OUTSIDE RECORDS SUMMARY | ~2018-07-16 | XMS | Encounter Summary ---
Demographics + + + | Address | [address] | | | [place] [address] | + + + | Home Phone [...] [place] | | | | | [address] | | + + + + + Care Team Providers + +------+ + | Care Test Analyst Name | Role | Phone | [...] | | | | | PHYSICAL | [facility] [place] | [facility] | | | | | THERAPY | [address] | for Health | | | | | REFERRAL | Phone: | and Healing, | | | | | | [phone] | 1st floor | | | | | | Fax: | [place], [place] | | | | | | [phone] | [address] | | | | | | | Phone: | | | | | | | [phone] | | | | | | | Fax: | | | | | | | [phone] | +--------+--------+ + + + + Encounter [...] | | | | [facility] | [address] | | | | | [address] | [place], [place] | | | | | Mailcode: CH3P | [address] | | | | | [facility] | | | | | | and Healing, 1st | | | | | | floor [facility] [place] | | | | | | [address] | | | | | | [phone] | | | +--------+---------+ + + + [...] might be different fr om the original. [id number] KEVON WELCH Date of : 1940 Start of care: 07/24/11 Date of onset:07/22/11 Referring/Attending Practitioner: Misael Myers MD . Primary/Referral Diagnosis/ICD-9: Encounter Diagnoses Name Primary? Shoulder pain Yes Insurance: Payor: ODS MEDICARE Plan: ODS MEDICARE Product Type: PPO Service period from: 08/24/11-10/23/11 Number visits used/authorized: 6 [facility] PHYSICAL TH[facility]: Post-op SHOULDER [...] hospital 24 hours in advance by calling [phone]. Our office is open 7am-6pm and there is a [employer] line 24 hours a day. Any appointment [...] change in their status. LENA RAIN PT [facility] REH[facility]IL[facility] SERVICES AND HAND THERAPY [address] Mailcode: [address] [address] documented in this e ncounter Plan of Treatment Not on filedocumented as of this encounter Procedures + +--------+ + + + | Procedure Name | Priori | Date/Time | Associated Diagnosis | Comments | | | ty | | | | + +--------+ + + + | [place] MANUAL THER | Routin | 09/08/2011 | Shoulder pain | | | TECH,1+GERHARD,EA 15 | e | 10:41 AM | | | | MIN | | PDT | | | + +--------+ + + + | [place] THERAPEUTIC | Routin | 09/08/2011 | Shoulder [...]
--- OUTSIDE RECORDS SUMMARY | ~2018-07-16 | XMS | Encounter Summary ---
Demographics + + + | Address | [address] | | | [place] [address] | + + + | Home Phone [...] [place] | | | | | [address] | | + + + + + Care Team Providers + +------+ + | Care Army Helicopter Pilot Name | Role | Phone | + [...] | | | 2011 | Event | [facility] | FRUIT LOADER [address] | | | | | and Healing Surgery | [facility] | | | | | Center Admitting | [place], [place] | | | | | Desk Located on the | [address] | | | | | 4th floor [address] | [phone] | | | | | [address] [place], | | | | | | [place] [address] | | | +--------+ + + + [...] nerve | Cannot be | | block ([facility], Single, I-Flow pump) | calculated | + [...]
--- OUTSIDE RECORDS SUMMARY | ~2018-07-16 | XMS | Encounter Summary ---
Demographics + + + | Address | [address] | | | [place] [address] | + + + | Home Phone | | + + + | Preferred Language | Unknown | + + + | Marital Status | | + + + | Samaritan Affiliation | NON | + + + [...] [place] | | | | | [address] | | + + + + + Care Team Providers + +------+ + | Care Environmental Health Inspector Name | Role | Phone | [...] | | | | | THERAPY | [facility] [place] | for Health | | | | | REFERRAL | [address] | and Healing, | | | | | | Phone: | 1st floor | | | | | | [phone] | [place], [place] | | | | | | Fax: | [address] | | | | | | [phone] | Phone: | | | | | | | [phone] | | | | | | | Fax: | | | | | | | [phone] | +--------+--------+ + + + + Encounter Details +--------+---------+ + + + | Date | Type | Department | Care Team | Description | +--------+---------+ + + + | 10/15/ | Office | [facility] | Philly Rain, | Low back pain; | | 2011 | Visit | Therapy Services at | PT [address] | Lumbar | | | | [facility] | [address] | radiculopathy; | | | | [address] | [place], [place] | Herniated lumbar | | | | Mailcode: CH3P | [address] | intervertebral disc; | | | | [facility] | | 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 [id number] KEVON WELCH Date of : 1940 Start of care: 10/09/2011 Date of onset: 09/10/11 Referring/Attending Practitioner: Alcira Bocanegra PA . Primary/Referral Diagnosis/ICD-9: 722.10H Herniated lumbar intervertebral disc Insurance: Payor: ODS MEDICARE Plan: ODS MEDICARE Product Type: PPO Service period from: 10/09/2011 to: 11/08/11 Number visits used/authorized: 3/ Neurologist: Dr. Rafal Benites [facility] [address] [place] [address] (Office) [facility] PHYSICAL [...] month ago. He was bending over to poultry picker a garden hose and felt increased [...] Social History: lives with Recreational Activities/Hobbies: plays [employer]; reading; does a lot of computer/keyboarding Functional [...] sciatic nerve until the calf-exquisitely tender "l emmaunel a sore muscle" here, no change with [...] change in their status. PHILLY RAIN PT [facility] REHABIL[facility]ATION [facility] AND HAND THERAPY [address] Mailcode: [address] [facility], [address] [place] [address] documented in this e ncounter Plan [...]
--- OUTSIDE RECORDS SUMMARY | ~2018-07-16 | XMS | Encounter Summary ---
Demographics + + + | Address | [address] | | | [place] [address] | + + + | Home Phone | | + + + | Preferred Language | Unknown | + + + | Marital Status | | + + + | Moravian Affiliation | NON | + + + [...] [place] | | | | | [address] | | + + + + + Care Team Providers + +------+ + | Care Student Accounts Manager Name | Role | Phone | [...] | | | | | THERAPY | [place], [place] | for Health | | | | | REFERRAL | [address] | and Healing, | | | | | | | 1st floor | | | | | | | [place], [place] | | | | | | | [address] | | | | | | | Phone: | | | | | | | [phone] | | | | | | | Fax: | | | | | | | [phone] | +--------+--------+ + + + + Encounter Details +--------+---------+ + + + | Date | Type | Department | Care Team | Description | +--------+---------+ + + + | 07/20/ | Office | [facility] | Rupesh, | Shoulder pain | | 2013 | Visit | Therapy Services at | Alise, PT [address] | (Primary Dx) | | | | [facility] | [address] | | | | | [address] | [place], [place] | | | | | Mailcode: CH3P | [address] | | | | | [facility] | | | | | | and eNd, 1st | | | | | | floor [place], [place] | | | | | | [address] | | | | | | [phone] | | | +--------+---------+ + + + [...] [place], PT - 07/20/2013 2:33 PM PDT [id number] KEVON WELCH Date of : 1940 Start of care: 05/19/2013 Date of onset: 03/21/2013 Referring/Attending Practitioner: Misael Myers Primary/Referral Diagnosis/ICD-9: Shoulder pain (primary encounter diagnosis) Insurance: Payor: [employer] ODS MEDICARE Plan: Zafin MEDICARE Product Type: P PO Service period from: 05/19/2013 to - Number visits used/authorized: 3- [facility] PHYSICAL THERAPY TREATMENT - ORTHO SUBJECTIVE: Current: Right shoulder is so-so. Has been traveling in [place], [place], and [place]. Di fficulty lifting suitcase to overhead bin and pulling through city. Stopped taking ibuprofe n and had spontaneous bruising - will call PCP once home in [facility]. Noticed minimal silva ge in [...] Right Left Right 07/20/2013 Flexion 141 155 [id number]* [id number] Abduction 146 150 adn178* [id number] ER at 90 deg abd 90 (60 [...] home exercise program as pt lives in [place], [place] for posterior do minant shoulder strength Frequency/Duration: Follow up prn due to pt living in [place], [place] and traveling to [place] include 234 beds at the [facility] for 4 weeks Treatment began: 0230 pm Treatment ended: 0315 pm This note is to serve as the discharge summary if Kevon fails to attend further Physical Th erapy appointments or contact the therapist regarding any change in their status. Alise [place], PT [facility] REHABILITATION SERVICES AND HAND THERAPY [address] Mailcode: [place] [address] documented in this encounter Plan of Treatment Not on filedocumented as of this encounter Procedures + +--------+ + + + | Procedure Name | Priori | Date/Time | Associated Diagnosis | Comments | | | ty | | | | + +--------+ + + + | [place] MANUAL THER | Routin | 07/20/2013 | [...]
--- OUTSIDE RECORDS SUMMARY | ~2018-07-16 | XMS | Encounter Summary ---
Demographics + + + | Address | [address] | | | [place] [address] | + + + | Home Phone [...] [place] | | | | | [address] | | + + + + + Care Team Providers + +------+ + | Care Mechanical Lead Name | Role | Phone | [...] | | | | | PHYSICAL | [facility] [place] | [facility] | | | | | THERAPY | [address] | for Health | | | | | REFERRAL | Phone: | and Healing, | | | | | | [phone] | 1st floor | | | | | | Fax: | [place], [place] | | | | | | [phone] | [address] | | | | | | | Phone: | | | | | | | [phone] | | | | | | | Fax: | | | | | | | [phone] | +--------+--------+ + + + + Encounter Details +--------+---------+ + + + | Date | Type | Department | Care Team | Description | +--------+---------+ + + + | 08/31/ | Office | [facility] | Lena Rain, | Shoulder pain | | 2011 | Visit | Therapy Services at | PT [address] | (Primary Dx) | | | | [facility] | [address] | | | | | [address] | [place], [place] | | | | | Mailcode: CH3P | [address] | | | | | [facility] | | | | | | and Healing, 1st | | | | | | floor [facility] [place] | | | | | | [address] | | | | | | [phone] | | | +--------+---------+ + + + [...] might be different fr om the original. [id number] KEVON WELCH Date of : 1940 Start [...] request that all cancellations be made at [facility] t 24 hours in advance by calling [phone]. Our office is open 7am-6pm and there is a [employer] line 24 hours a day. Any appointment [...] in their status. LENA RAIN PT [facility] REHABILITATION SERVICES AND HAND THERAPY [address] Mailcode: [address] And [facility], 1st [facility] [address] documented in this e ncounter [...] | [place] MANUAL THER | Routin | 09/01/2011 | Shoulder pain | | | TECH,1+GERHARD,EA 15 | e | 4:16 PM | | | | MIN | | PDT | | | + +--------+ + + + | [place] THERAPEUTIC | Routin | 09/01/2011 | Shoulder [...]
--- OUTSIDE RECORDS SUMMARY | ~2018-07-16 | XMS | Encounter Summary ---
Demographics + + + | Address | [address] | | | [place] [address] | + + + | Home Phone [...] [place] | | | | | [address] | | + + + + + Care Team Providers + +------+ + | Care Network Operations Technician Name | Role | Phone | [...] | | shoulder | Provider Per | [address] | | | | | pain | Patient NO | Celestine Morales | | | | | | REFERRING | Dejan Onofre | | | | | | PROVIDER PER | [place] | | | | | | [place] | [address] | | | | | | | Phone: | | | | | | | [phone] | | | | | | | Fax: | | | | | | | [phone] | +--------+--------+ + + + + Encounter Details +--------+---------+ + + + | Date | Type | Department | Care Team | Description | +--------+---------+ + + + | 06/29/ | Office | Orthopaedics at | Katty Chairez PA | Other specified | | 2011 | Visit | [facility] [address] | [address] | pre-operative | | | | Ave Mailcode: CH12A | [place], [place] | examination (Primary | | | | [facility] | [address] | Dx) | | | | and Healing, 12th | [phone] | | | | | Floor [place], [place] | | | | | | [address] | | | | | | [phone] | | | +--------+---------+ + + + [...] take place on the hill at the [facility]: Surgeries scheduled in the [facility] (4 North): registration is located on the 4th floor of [facility] (Day Surgery). Surgeries scheduled in the [facility]: registration is located on the 9th floor. Surgeries scheduled in [facility]: registration is located on the 6th floor. Surgeries scheduled in the [facility]: registration is located i n the [facility] on the first floor. For surgeries scheduled to take place at the [facility]: registration is l [...] If you use specialized medical equipment at [facility], please check with your provider before [...]
--- OUTSIDE RECORDS SUMMARY | ~2018-07-16 | XMS | Encounter Summary ---
Demographics + + + | Address | [address] | | | [place] [address] | + + + | Home Phone | | + + + | Preferred Language | Unknown | + + + | Marital Status | | + + + | Advent Affiliation | NON | + + + | Race | White | + + + | Ethnic Group | Not or | + + + Author + + + | Author | [facility] | + + + | Organization | [facility] | + + + | Address | Unknown | + + + | Phone | Unavailable | + + + Support + + + + + | Name | Relationship | Address | Phone | + + + + + | Elizabeth Welch | ECON | [address] | | | | | [place] | | | | | [address] | | + + + + + Care Team Providers + +------+ + | Care Sprayer Insecticide Name | Role | Phone | + [...] | | | | | THERAPY | [place], [place] | for Health | | | | | REFERRAL | [address] | and Healing, | | | | | | | 1st floor | | | | | | | [place], [place] | | | | | | | [address] | | | | | | | Phone: | | | | | | | [phone] | | | | | | | Fax: | | | | | | | [phone] | +--------+--------+ + + + + Encounter [...] | | | [facility] | [address] | | | | | [address] | [place], [place] | | | | | Mailcode: CH3P | [address] | | | | | [facility] | | | | | | and Ned, 1st | | | | | | floor [place], [place] | | | | | | [address] | | | | | | [phone] | | | +--------+---------+ + + + [...] Washington, PT - 07/20/2013 2:33 PM PDT [id number] KEVON WELCH Date of : 1940 Start of care: 05/19/2013 Date of onset: 03/21/2013 Referring/Attending Practitioner: Misael Myers Primary/Referral Diagnosis/ICD-9: Shoulder pain (primary encounter diagnosis) Insurance: Payor: [employer] ODS MEDICARE Plan: [employer] MEDICARE Product Type: P PO Service period from: 05/19/2013 to - Number visits used/authorized: 3- [facility] PHYSICAL THERAPY TREATMENT - ORTHO SUBJECTIVE: Current: Right shoulder is so-so. Has been traveling in [place], [place], and [place]. Di fficulty lifting suitcase to overhead bin and pulling through city. Stopped taking ibuprofe n and had spontaneous bruising - will call PCP once home in [facility]. Noticed minimal silva ge in [...] Right Left Right 07/20/2013 Flexion 141 155 [id number]* [id number] Abduction 146 150 [id number]* [id number] ER at 90 deg abd 90 (60 [...] in [place], [place] and traveling to [facility] for 4 weeks Treatment began: 0230 pm Treatment ended: 0315 pm This note is to serve as the discharge summary if Kevon fails to attend further Physical Th erapy appointments or contact the therapist regarding any change in their status. Alise Washington, PT [facility] REHABILITATION SERVICES AND HAND THERAPY [address] Mailcode: [place] [address] documented in this encounter Plan of Treatment Not on filedocumented as of this encounter Procedures + +--------+ + + + | Procedure Name | Priori | Date/Time | Associated Diagnosis | Comments | | | ty | | | | + +--------+ + + + | UT MANUAL THER | Routin | 07/20/2013 | [...]
--- OUTSIDE RECORDS SUMMARY | ~2018-07-16 | XMS | Encounter Summary ---
Demographics + + + | Address | [address] | | | [place] [address] | + + + | Home Phone [...] [place] | | | | | [address] | | + + + + + Care Team Providers + +------+ + | Care Business Development Consultant Name | Role | Phone | [...] | intervertebral disc | | | | [facility] | [facility] | (Primary Dx) | | | | [address] | Road [place], [place] | | | | | Mailcode: [facility] | [address] | | | | | [facility] | | | | | | and Healing, [facility] | | | | | | floor [place], [place] | | | | | | [address] | | | | | | [phone] | | | +--------+---------+ + + + [...] Dailey, PT - 10/10/2011 1:41 PM PDT [id number] KEVON WELCH Date of : 1940 Start of care: 10/09/2011 Date of onset: 09/10/11 Referring/Attending Practitioner: Alcira Bocanegra PA . Primary/Referral Diagnosis/ICD-9: 722.10H Herniated lumbar intervertebral disc Insurance: Payor: ODS MEDICARE Plan: ODS MEDICARE Product Type: PPO Service period from: 10/09/2011 to: 11/08/11 Number visits used/authorized: 1/ Neurologist: Dr. Rafal Benites [address] [address] (Office) [facility] PHYSICAL THERAPY SUBJECTIVE Age: 71 y.o. Sex: male Chief complaint: Today's report: 03/21. Walking. Foot drop. 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 No lying on stomach since 8 years o ld due to back pain History of Presenting Problems: Kevon Welch is a 71 y.o. male with c/o LBP that began about a month ago. 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
--- OUTSIDE RECORDS SUMMARY | ~2018-07-16 | XMS | Encounter Summary ---
Demographics + + + | Address | [address] | | | [place] [address] | + + + | Home Phone | | + + + | Preferred Language | Unknown | + + + | Marital Status | | + + + | Yazidi Affiliation | NON | + + + [...] [place] | | | | | [address] | | + + + + + Care Team Providers + +------+ + | Care Director Of Career Resources Name | Role | Phone | [...] | | | | | PHYSICAL | [place], [place] | [address] | | | | | THERAPY | [address] | for Health | | | | | REFERRAL | Phone: | and Healing, | | | | | | [phone] | 1st floor | | | | | | Fax: | [place], [place] | | | | | | [phone] | [address] | | | | | | | Phone: | | | | | | | [phone] | | | | | | | Fax: | | | | | | | [phone] | +--------+--------+ + + + + Encounter [...] | [facility] | [address] | | | | | [address] | [place], [place] | | | | | Mailcode: CH3 | [address] | | | | | [facility] | | | | | | and Ned, 1st | | | | | | floor [place], [place] | | | | | | [address] | | | | | | [phone] | | | +--------+---------+ + + + [...] might be different fr om the original. [id number] KEVON WELCH Date of : 1940 Start of care: 06/30/2011 Date of onset:12/24/10 Referring/Attending Practitioner: Misael Myers MD . Primary/Referral Diagnosis/ICD-9: Encounter Diagnoses Name Primary? Shoulder pain Yes Insurance: Payor: ODS MEDICARE Plan: ODS MEDICARE Product Type: PPO Service period from: 06/30/2011 to: 09/28/11 Number visits used/authorized: 4 [facility] PHYSICAL THERAPY: Pre-op SHOULDER Subjective: [...] t 24 hours in advance by calling [phone]. Our office is open 7am-6pm and there is a [employer] ssage line 24 hours a day. Any [...] change in their status. PHILLY RAIN PT [facility] REHABILITATION SERVICES AND HAND THERAPY [address] Mailcode: [address] And [facility], 1st Floor [facility] [address] documented in this e ncounter Plan of Treatment Not on filedocumented as of this encounter Procedures + +--------+ + + + | Procedure Name | Priori | Date/Time | Associated Diagnosis | Comments | | | ty | | | | + +--------+ + + + | UT MANUAL THER | Routin | 06/30/2011 | Shoulder pain | | | TECH,1+REGIONS,EA 15 | e | 4:12 PM | | | | MIN | | PDT | | | + +--------+ + + + | UT THERAPEUTIC | Routin | 06/30/2011 | Shoulder [...]
--- OUTSIDE RECORDS SUMMARY | ~2018-07-16 | XMS | Encounter Summary ---
Demographics + + + | Address | [address] | | | [place] [address] | + + + | Home Phone [...] [place] | | | | | [address] | | + + + + + Care Team Providers + +------+ + | Care Technical Support Professional Name | Role | Phone | [...] | | Therapy | Shoulder | MD Grody | [address] | | | | | pain | [address] | | | | | Procedures | [facility] | Mailcode: | | | | | PHYSICAL | Rd | [facility] Center | | | | | THERAPY | [place], [place] | for Health | | | | | REFERRAL | [address] | and Healing, | | | | | | | 1st floor | | | | | | | [place], [place] | | | | | | | [address] | | | | | | | Phone: | | | | | | | [phone] | | | | | | | Fax: | | | | | | | [phone] | +--------+--------+ + + + + Encounter Details +--------+---------+ + + + | Date | Type | Department | Care Team | Description | +--------+---------+ + + + | 08/30/ | Office | [place] Physical | Rupesh, | Shoulder pain, right | | 2013 | Visit | Therapy Services at | Alise, PT [address] | (Primary Dx) | | | | [facility] | [address] | | | | | [address] | [place], [place] | | | | | Mailcode: [facility] | [address] | | | | | [facility] | | | | | | and Healing, 1st | | | | | | floor [place], [place] | | | | | | [address] | | | | | | [phone] | | | +--------+---------+ + + + [...] might be different from the o saul. [id number] KEVON WELCH Date of : 1940 Start of care: 05/19/2013 Date of onset: 03/21/2013 Referring/Attending Practitioner: Misael Myers Primary/Referral Diagnosis/ICD-9: Shoulder pain, right (primary encounter diagnosis) Insurance: Payor: [email or web address] MEDICARE Plan: [email or web address] MEDICARE Product Type: P PO Service period from: 05/19/2013 to 01/18/2014 Number visits used/authorized: 07/21 [facility] PHYSICAL THERAPY TREATMENT - ORTHO SUBJECTIVE: [...] Right 07/20/2013 Right 08/11/2013 Flexion 141 155 [id number]* [id number] Pre 125* Post 140 Abduction 146 150 [id number]* foll587 Pre 95* Post 132 ER at 90 [...] - [facility], [place] Treatment began: 1100 am [...] in the student's note. Alise Washington, PT [facility] REHABILITATION SERVICES AND HAND THERAPY [address] Mailcode: [place] [address] documented in this encounter Plan of Treatment Not on filedocumented as of this encounter Procedures + +--------+ + + + | Procedure Name | Priori | Date/Time | Associated Diagnosis | Comments | | | ty | | | | + +--------+ + + + | [place] MANUAL THER | Routin | 08/30/2013 | Shoulder pain, | | | TECH,1+REGIONS,EA 15 | e | 1:58 PM | right | | | MIN | | PDT | | | + +--------+ + + + | [place] THERAPEUTIC | Routin | 08/30/2013 | Shoulder [...]
--- OUTSIDE RECORDS SUMMARY | ~2018-07-16 | XMS | Encounter Summary ---
Demographics + + + | Address | [address] | | | [place] [address] | + + + | Home Phone | | + + + | Preferred Language | Unknown | + + + | Marital Status | | + + + | Taoism Affiliation | NON | + + + [...] [place] | | | | | [address] | | + + + + + Care Team Providers + +------+ + | Care Inventory Transcriber Name | Role | Phone | + [...] (Primary Dx) | | | | [facility] | [address] | | | | | [address] | [place], [place] | | | | | Mailcode: CH3P | [address] | | | | | [facility] | | | | | | and Healing, 1st | | | | | | floor [facility] [place] | | | | | | [address] | | | | | | [phone] | | | +--------+---------+ + + + [...] Acosta, PT - 02/13/2011 6:28 PM PST [id number] KEVON WELCH Date of : 1940 Start of care: 02/13/2011 Date of onset: 12/24/2010 Referring/Attending Practitioner: Misael Myers MD . Primary/Referral Diagnosis/ICD-9: Encounter Diagnoses Name Primary? Shoulder pain Yes Insurance: Payor: ODS MEDICARE Plan: ODS MEDICARE Product Type: PPO Service period from: 02/13/2011 to 03/12/2011 Number visits used/authorized: 02/[address] 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 Kevon [...] cont with PT closer to home in [facility] Treatment began: 1005 Treatment ended: 1030 This note is to serve as the discharge summary if pt fails to attend further Physical Thera py appointments or contact the therapist regarding any change in their status. ALISE ACOSTA PT [facility] REHABILITATION SERVICES AND HAND THERAPY [address] Mailcode: [address] [address] documented in this encounter Plan [...] + +--------+ + + + | NE PHYS THERAPY | Routin | 02/13/2011 | [...]
--- OUTSIDE RECORDS SUMMARY | ~2018-07-16 | XMS | Encounter Summary ---
Demographics + + + | Address | [address] | | | [place] [address] | + + + | Home Phone [...] [place] | | | | | [address] | | + + + + + Care Team Providers + +------+ + | Care Radio Time Salesperson Name | Role | Phone | + [...] + + | 07/21/ | Hospital | [facility] | Misael Myers MD | | | 2011 | Encounter | ST[address] | [address] | | | | | [facility] | [facility] | | | | | FOR HEALTH AND | [place], [place] | | | | | [facility], | [address] | | | | | [place] [address] | [phone] | | | | | [phone] | | | +--------+ + + + [...]
--- OUTSIDE RECORDS SUMMARY | ~2018-07-16 | XMS | Encounter Summary ---
Demographics + + + | Address | [address] | | | [place] [address] | + + + | Home Phone [...] [place] | | | | | [address] | | + + + + + Care Team Providers + +------+ + | Care Clinical Review Nurse Name | Role | Phone | + [...] | | | | | PHYSICAL | [place], [place] | [address] | | | | | THERAPY | [address] | for Health | | | | | REFERRAL | Phone: | and Healing, | | | | | | [phone] | 1st floor | | | | | | Fax: | [place], [place] | | | | | | [phone] | [address] | | | | | | | Phone: | | | | | | | [phone] | | | | | | | Fax: | | | | | | | [phone] | +--------+--------+ + + + + Encounter [...] | | [facility] | [address] | | | | | [address] | [place], [place] | | | | | Mailcode: CH3 | [address] | | | | | [facility] | | | | | | and Ned, 1st | | | | | | floor [place], [place] | | | | | | [address] | | | | | | [phone] | | | +--------+---------+ + + + [...] might be different fr om the original. [id number] KEVON WELCH Date of : 1940 Start of care: 07/24/11 Date of onset:07/22/11 Referring/Attending Practitioner: Misael Myers MD . Primary/Referral Diagnosis/ICD-9: Encounter Diagnoses Name Primary? Shoulder pain Yes Insurance: Payor: ODS MEDICARE Plan: ODS MEDICARE Product Type: PPO Service period from: 07/24/11-08/23/11 Number visits used/authorized: 1 [facility] PHYSICAL THERAPY: Post-op SHOULDER POST OP DAY [...] request that all cancellations be made at [facility] 24 hours in advance by calling [phone]. Our office is open 7am-6pm and there is a [employer] ssage line 24 hours a day. [...] change in their status. PHILLY RAIN PT [facility] REHABILITATION SERVICES AND HAND THERAPY [address] Mailcode: [address] [facility], [address] [place] [address] documented in this e ncounter Plan [...] + | [place] THERAPEUTIC | Routin | 07/24/2011 | Shoulder pain | | | ACTIVITIES | e | 4:38 PM | | | | | | PDT | | | + +--------+ + + + | CO THERAPEUTIC | Routin | 07/24/2011 | Shoulder pain | | | EXERCISES | e | 4:38 PM | | | | | | PDT | | | + +--------+ + + + | CO PHYS THERAPY | Routin | 07/24/2011 | [...]
--- OUTSIDE RECORDS SUMMARY | ~2018-07-16 | XMS | Encounter Summary ---
Demographics + + + | Address | [address] | | | [place] [address] | + + + | Home Phone [...] [place] | | | | | [address] | | + + + + + Care Team Providers + +------+ + | Care Insights Strategist Name | Role | Phone | + [...] | | sprain | REFERRING | [address], | | | | | Osteoarthros | PROVIDER PER | [place] | | | | | [place], | [place] | [address] | | | | | unspecified | | Phone: | | | | | whether | | [phone] | | | | | generalized | | Fax: | | | | | or | | [phone] | | | | | localized, | [...] | | | | | | | CORN CROP SUPERVISOR | | | | | | | GA SHLDR | | | | | | | ARTHROSCOP,P | | | | | | | ART | | | | | | | ACROMIOPLAS | | | | | | | W/CORACOACRO | | | | | | | M GA SHLDR | | | | | | | ARTHROSCOP,S | | | | | | | URG,DIS | | | | | | | CLAVICULECTO | | | | | | | MY GA | | | | | | | [...] | | | Ave Mailcode: CH12A | [place], [place] | | | | | [facility] | [address] | | | | | and [facility], [facility] | [phone] | | | | | Floor [place], [place] | | | | | | [address] | | | | | | [phone] | | | +--------+---------+ + + + [...]
--- OUTSIDE RECORDS SUMMARY | ~2018-07-16 | XMS | Encounter Summary ---
Demographics + + + | Address | [address] | | | [place] [address] | + + + | Home Phone [...] [place] | | | | | [address] | | + + + + + Care Team Providers + +------+ + | Care Satellite Manager Name | Role | Phone | [...] | | shoulder | Provider Per | [address] | | | | | pain | Patient NO | [address] | | | | | | REFERRING | Dejan Onofre | | | | | | PROVIDER PER | [place] | | | | | | [place] | [address] | | | | | | | Phone: | | | | | | | [phone] | | | | | | | Fax: | | | | | | | [phone] | +--------+--------+ + + + + Encounter Details +--------+---------+ + + + | Date | Type | Department | Care Team | Description | +--------+---------+ + + + | 02/13/ | Office | Orthopaedics at | Misael Myers MD | Shoulder pain; | | 2011 | Visit | [facility] [address] | [address] | Rotator cuff | | | | [place] Mailcode: CH12A | [address] | tendinitis; | | | | [facility] | [facility] [place] | Disorders of bursae | | | | and Healing, | [address] | and tendons in | | | | Floor [facility] [place] | [phone] | shoulder region, | | | | [address] | | unspecified | | | | [phone] | | | +--------+---------+ + + + [...] Speed's biceps test was ne gative. and [place]'s test was positive. The patient had normal [...]
--- OUTSIDE RECORDS SUMMARY | ~2018-07-16 | XMS | Encounter Summary ---
Demographics + + + | Address | [address] | | | [place] [address] | + + + | Home Phone [...] [place] | | | | | [address] | | + + + + + Care Team Providers + +------+ + | Care Vascular Sonographer Name | Role | Phone | + [...] | | | | | THERAPY | [address] | for Health | | | | | REFERRAL | Phone: | and Healing, | | | | | | [phone] | 1st floor | | | | | | Fax: | [place], [place] | | | | | | [phone] | [address] | | | | | | | Phone: | | | | | | | [phone] | | | | | | | Fax: | | | | | | | [phone] | +--------+--------+ + + + + Encounter [...] [facility] | [facility] [address] | | | | | [address] | [place], [place] | | | | | Mailcode: CH3P | [address] | | | | | [facility] | | | | | | and Healing, 1st | | | | | | floor [facility] [place] | | | | | | [address] | | | | | | [phone] | | | +--------+---------+ + + + [...] might be different fr om the original. [id number] KEVON WELCH Date of : 1940 Start [...] change in their status. LENA RAIN, PT [facility]IL[facility] AND HAND THERAPY [address] Mailcode: [address] And [facility], 1st Floor [facility] [address] documented in this e ncounter Plan of Treatment Not on filedocumented as of this encounter Procedures + +--------+ + + + | Procedure Name | Priori | Date/Time | Associated Diagnosis | Comments | | | ty | | | | + +--------+ + + + | ND THERAPEUTIC | Routin | 05/29/2011 | Shoulder pain | | | ACTIVITIES | e | 3:47 PM | | | | | | PDT | | | + +--------+ + + + | ND MANUAL THER | Routin | 05/29/2011 | Shoulder pain | | | TECH,1+REGIONS,EA 15 | e | 3:47 PM | | | | MIN | | PDT | | | + +--------+ + + + | ND THERAPEUTIC | Routin | 05/29/2011 | Shoulder [...]
--- OUTSIDE RECORDS SUMMARY | ~2018-07-16 | XMS | Encounter Summary ---
Demographics + + + | Address | [address] | | | [place] [address] | + + + | Home Phone [...] [place] | | | | | [address] | | + + + + + Care Team Providers + +------+ + | Care Sewer Pipe Press Operator Name | Role | Phone [...] | pain | [address] | [address] | | | | | Procedures | [facility] | Mailcode: | | | | | PHYSICAL | Rd | [facility] | | | | | THERAPY | [place], [place] | for Health | | | | | REFERRAL | [address] | and Healing, | | | | | | Phone: | 1st floor | | | | | | [phone] | [place], [place] | | | | | | Fax: | [address] | | | | | | [phone] | Phone: | | | | | | | [phone] | | | | | | | Fax: | | | | | | | [phone] | +--------+--------+ + + + + Encounter [...] back pain; Lumbar | | | | [facility] | [facility] [address] | radiculopathy; | | | | [address] | [place], [place] | Herniated lumbar | | | | Mailcode: CH3P | [address] | intervertebral disc; | | | | [facility] | | 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 [id number] KEVON WELCH Date of : 1940 Start of care: 10/09/2011 Date of onset: 09/10/11 Referring/Attending Practitioner: Alcira Bocanegra PA . Primary/Referral Diagnosis/ICD-9: 722.10H Herniated lumbar intervertebral disc Insurance: Payor: [employer] MEDICARE Plan: ODS MEDICARE Product Type: PPO Service period from: 10/09/2011 to: 11/08/11 Number visits used/authorized: 4/ Neurologist: Dr. Rafal Benites [facility] [address] [place] [address] (Office) [facility] PHYSICAL THERAPY SUBJECTIVE Age: [...] month ago. He was bending over to pickle processor a garden hose and felt increased R [...] Social History: lives with Recreational Activities/Hobbies: plays [employer]; reading; does a lot of computer/keyboarding Functional [...] change in their status. LENA RAIN PT [facility] REHABILITATION SERVICES AND HAND THERAPY [address] Mailcode: Ch3p [facility], 1st [facility] [address] documented in this e ncounter Plan of Treatment Not on filedocumented as of this encounter Procedures + +--------+ + + + | Procedure Name | Priori | Date/Time | Associated Diagnosis | Comments | | | ty | | | | + +--------+ + + + | [place] THERAPEUTIC | Routin | 10/24/2011 | Shoulder [...]
--- OUTSIDE RECORDS SUMMARY | ~2018-07-16 | XMS | Encounter Summary ---
Demographics + + + | Address | [address] | | | [place] [address] | + + + | Home Phone [...] [place] | | | | | [address] | | + + + + + Care Team Providers + +------+ + | Care Bottom Brusher Name | Role | Phone | + [...] | | sprain | REFERRING | [address] [place], | | | | | Osteoarthros | PROVIDER PER | [place] | | | | | [place], | [place] | [address] | | | | | unspecified | | Phone: | | | | | whether | | [phone] | | | | | generalized | | Fax: | | | | | or | | [phone] | | | | | localized, | [...] | | | | | | | RECYCLING TECH | | | | | | | MD SHLDR | | | | | | | ARTHROSCOP,P | | | | | | | ART | | | | | | | ACROMIOPLAS | | | | | | | W/CORACOACRO | | | | | | | M MD SHLDR | | | | | | | ARTHROSCOP,S | | | | | | | URG,DIS | | | | | | | CLAVICULECTO | | | | | | | MY MD | | | | | | | [...] | | | Ave Mailcode: CH12A | [employer], [place] | | | | | [facility] | [address] | | | | | and [facility] | [phone] | | | | | Floor [employer], [place] | | | | | | [address] | | | | | | [phone] | | | +--------+---------+ + + + [...]
--- OUTSIDE RECORDS SUMMARY | ~2018-07-16 | XMS | Clinical Summary ---
Demographics + + + | Address | [address] | | | [place] [address] | + + + | Home Phone | | + + + | Preferred Language | Unknown | + + + | Marital Status | | + + + | Congregational Affiliation | NON | + + + [...] [place] | | | | | [address] | | + + + + + Care Team Providers + +------+ + | Care Fire Extinguisher Tester Name | Role | Phone | + +------+ + | Zeyad May MD | PP | | + +------+ + Source Comments YOVANNY is fully live on both EpicCare Ambulatory and EpicCare InPatient.[facility] Allergies + + + + [...]
--- OUTSIDE RECORDS SUMMARY | ~2018-07-16 | XMS | Encounter Summary ---
Demographics + + + | Address | [address] | | | [place] [address] | + + + | Home Phone [...] [place] | | | | | [address] | | + + + + + Care Team Providers + +------+ + | Care Formulation Technician Name | Role | Phone | [...] | | shoulder | Provider Per | [address] | | | | | pain | Patient NO | [address] Morales | | | | | | REFERRING | Rd [place], | | | | | | PROVIDER PER | [place] | | | | | | PT | [address] | | | | | | | Phone: | | | | | | | [phone] | | | | | | | Fax: | | | | | | | [phone] | +--------+--------+ + + + + Encounter Details +--------+---------+ + + + | Date | Type | Department | Care Team | Description | +--------+---------+ + + + | 04/27/ | Office | Orthopaedics at | Misael Myers MD | Shoulder pain | | 2011 | Visit | [facility] [address] | [address] | (Primary Dx); | | | | Ave Mailcode: CH12A | [address] | Rotator cuff | | | | [facility] | [place], [place] | tendinitis; | | | | and | [address] | Osteoarthrosis, | | | | Floor [place], [place] | [phone] | unspecified whether | | | | [address] | | generalized or | | | | [phone] | | localized, shoulder | | | [...] S: Pt undergoing PT at clinic in [place] 200 miles from here; has been seen [...] [address] Mailcode: Ch12a [facility], [address] [place] [address] Misael Vega MD - 04/28/2011 11:09 [...]
--- OUTSIDE RECORDS SUMMARY | ~2018-07-16 | XMS | Encounter Summary ---
Demographics + + + | Address | [address] | | | [place] [address] | + + + | Home Phone [...] [place] | | | | | [address] | | + + + + + Care Team Providers + +------+ + | Care Glue Maker Bone Name | Role | Phone | + [...] | | | | | PHYSICAL | [facility] [place] | [facility] | | | | | THERAPY | [address] | for Health | | | | | REFERRAL | Phone: | and Healing, | | | | | | [phone] | 1st floor | | | | | | Fax: | [place], [place] | | | | | | [phone] | [address] | | | | | | | Phone: | | | | | | | [phone] | | | | | | | Fax: | | | | | | | [phone] | +--------+--------+ + + + + Encounter Details +--------+ + + + + | Date | Type | Department | Care Team | Description | +--------+ + + + + | 05/13/ | Stone Repairer | Orthopaedics at | Katty Chairez PA | Shoulder pain | | 2011 | | [facility] [address] | [address] | (Primary Dx) | | | | Ave Mailcode: CH12A | [place], [place] | | | | | [place] for [facility] | [address] | | | | | and , | [phone] | | | | | Floor [place], [place] | | | | | | [address] | | | | | | [phone] | | | +--------+ + + + [...]
--- OUTSIDE RECORDS SUMMARY | ~2018-07-16 | XMS | Encounter Summary ---
Demographics + + + | Address | [address] | | | [place] [address] | + + + | Home Phone [...] [place] | | | | | [address] | | + + + + + Care Team Providers + +------+ + | Care Mission Assessment Specialist Name | Role | Phone | [...] | | sprain | REFERRING | Rd [place], | | | | | Osteoarthros | PROVIDER PER | [place] | | | | | is, | [place] | [address] | | | | | unspecified | | Phone: | | | | | whether | | [phone] | | | | | generalized | | Fax: | | | | | or | | [phone] | | | | | localized, | [...] | | | | | | | SUBSTITUTE TEACHER | | | | | | | VT SHLDR | | | | | | | ARTHROSCOP,P | | | | | | | ART | | | | | | | ACROMIOPLAS | | | | | | | W/CORACOACRO | | | | | | | M [place] SHLDR | | | | | | | ARTHROSCOP,S | | | | | | | URG,DIS | | | | | | | CLAVICULECTO | | | | | | | MY [place] | | | | | | | [...] | | | Ave Mailcode: CH12A | [place], [place] | | | | | [facility] | [address] | | | | | and [facility] | [phone] | | | | | Floor [place], [place] | | | | | | [address] | | | | | | [phone] | | | +--------+---------+ + + + [...]
--- OUTSIDE RECORDS SUMMARY | ~2018-07-16 | XMS | Encounter Summary ---
Demographics + + + | Address | [address] | | | [place] [address] | + + + | Home Phone [...] [place] | | | | | [address] | | + + + + + Care Team Providers + +------+ + | Care Manager Mobility Name | Role | Phone | + +------+ + | Doyle Johnson MD | PCP | | + +------+ + Encounter Details +--------+ + + + + | Date | Type | Department | Care Team | Description | +--------+ + + + + | 05/19/ | Hospital | Radiology/Imaging | | | | 2013 | Encounter | Lab at [facility] [address] | | | | | | [address] Mailcode: | | | | | | [facility] | | | | | Health and Healing, | | | | | | [address] [place] [address], | | | | | | [place] [address] | | | | | | [phone] | | | +--------+ + + + [...] | | + +---------+ + + | [facility] DEPARTMENT OF | | | | | RADIOLOGY | | | | + +---------+ + + documented in this encounter Visit Diagnoses + + | Diagnosis | + + | Shoulder pain Pain in joint, shoulder region | + + documented in this encounter"
--- OUTSIDE RECORDS SUMMARY | ~2018-07-16 | XMS | Encounter Summary ---
Demographics + + + | Address | [address] | | | [place] [address] | + + + | Home Phone [...] [place] | | | | | [address] | | + + + + + Care Team Providers + +------+ + | Care Radon Inspector Name | Role | Phone | [...] | | | 2011 | Event | [facility] | ORDER PLANNER [address] | | | | | and Healing Surgery | [facility] | | | | | Center Admitting | [place], [place] | | | | | Desk Located on the | [address] | | | | | 4th floor [address] | [phone] | | | | | [address] [place], | | | | | | [place] [address] | | | +--------+ + + + [...] nerve | Cannot be | | block ([facility], Single, I-Flow pump) | calculated | [...]
--- OUTSIDE RECORDS SUMMARY | ~2018-07-16 | XMS | Encounter Summary ---
Demographics + + + | Address | [address] | | | [place] [address] | + + + | Home Phone [...] [place] | | | | | [address] | | + + + + + Care Team Providers + +------+ + | Care Pierce And Shave Press Operator Name | Role | Phone [...] + + | 07/21/ | Surgery | [facility] | Misael Myers MD | ARTHROSCOPIC | | 2011 | | [place] for [facility] | [address] | SUBACROMIAL | | | | and Healing Surgery | [facility] | DECOMPRESSION; | | | | Center Admitting | [place], [place] | DISTAL CLAVICLE | | | | Desk Located on the | [address] | RESECTION AND | | | | 4th floor [address] | [phone] | POSSIBLE BICEPS | | | | [address] [place], | | [place] | | | | [place] [address] | | | +--------+---------+ + + + [...]
--- OUTSIDE RECORDS SUMMARY | ~2018-07-16 | XMS | Encounter Summary ---
Demographics + + + | Address | [address] | | | [place] [address] | + + + | Home Phone [...] [place] | | | | | [address] | | + + + + + Care Team Providers + +------+ + | Care Services Rep Name | Role | Phone | + +------+ + | Doyle Johnson MD | PCP | Unavailable | + +------+ + Encounter Details +--------+ + + + + | Date | Type | Department | Care Team | Description | +--------+ + + + + | 07/21/ | Telephone | Orthopaedics at | Misael Myers MD | | | 2011 | | [facility] [address] | [address] | | | | | [place] Mailcode: CH12A | [address] | | | | | [place] for [facility] | [place], [place] | | | | | and | [address] | | | | | Floor [place], [place] | [phone] | | | | | [address] | | | | | | [phone] | | | +--------+ + + + [...]
--- OUTSIDE RECORDS SUMMARY | ~2018-07-16 | XMS | Encounter Summary ---
Demographics + + + | Address | [address] | | | [place] [address] | + + + | Home Phone [...] [place] | | | | | [address] | | + + + + + Care Team Providers + +------+ + | Care Appliance Installer Name | Role | Phone | [...] | | | | | PHYSICAL | [facility] [place] | [facility] | | | | | THERAPY | [address] | for Health | | | | | REFERRAL | Phone: | and Healing, | | | | | | [phone] | 1st floor | | | | | | Fax: | [place], [place] | | | | | | [phone] | [address] | | | | | | | Phone: | | | | | | | [phone] | | | | | | | Fax: | | | | | | | [phone] | +--------+--------+ + + + + Encounter [...] Hospital | [address] | | | | | [address] | [place], [place] | | | | | Mailcode: CH3P | [address] | | | | | [facility] | | | | | | and Healing, 1st | | | | | | floor [facility] [place] | | | | | | [address] | | | | | | [phone] | | | +--------+---------+ + + + [...] might be different fr om the original. [id number] KEVON WELCH Date of : 1940 Start of care: 07/24/11 Date of onset:07/22/11 Referring/Attending Practitioner: Misael Myers MD . Primary/Referral Diagnosis/ICD-9: Encounter Diagnoses Name Primary? Shoulder pain Yes Insurance: Payor: ODS MEDICARE Plan: ODS MEDICARE Product Type: PPO Service period from: 08/24/11-10/23/11 Number visits used/authorized: 6 [facility] PH[facility]ICAL THER[facility]: Post-op SHOULDER PO week [...] request that all cancellations be made at [facility] 24 hours in advance by calling [phone]. Our office is open 7am-6pm and there is a M-Changage line 24 hours a day. Any appointment [...] change in their status. LENA RAIN PT [facility] RE[facility]IL[facility]ATION SERVICES AND HAND THERAPY [address] Mailcode: [address] [address] documented in this e ncounter Plan of Treatment Not on filedocumented as of this encounter Procedures + +--------+ + + + | Procedure Name | Priori | Date/Time | Associated Diagnosis | Comments | | | ty | | | | + +--------+ + + + | [place] MANUAL THER | Routin | 09/08/2011 | Shoulder pain | | | TECH,1+GERHARD,EA 15 | e | 10:41 AM | | | | MIN | | PDT | | | + +--------+ + + + | [place] THERAPEUTIC | Routin | 09/08/2011 | Shoulder [...]
--- OUTSIDE RECORDS SUMMARY | ~2018-07-16 | XMS | Encounter Summary ---
Demographics + + + | Address | [address] | | | [place] [address] | + + + | Home Phone [...] [place] | | | | | [address] | | + + + + + Care Team Providers + +------+ + | Care Monitoring Manager Name | Role | Phone | [...] | | | | | THERAPY | [place], [place] | for Health | | | | | REFERRAL | [address] | and Healing, | | | | | | | 1st floor | | | | | | | [place], [place] | | | | | | | [address] | | | | | | | Phone: | | | | | | | [phone] | | | | | | | Fax: | | | | | | | [phone] | +--------+--------+ + + + + Encounter Details +--------+---------+ + + + | Date | Type | Department | Care Team | Description | +--------+---------+ + + + | 08/18/ | Office | [place] Physical | Rupesh, | Shoulder pain, right | | 2013 | Visit | Therapy Services at | Alise, PT [address] | (Primary Dx) | | | | [facility] | [address] | | | | | [address] | [place], [place] | | | | | Mailcode: [facility] | [address] | | | | | [facility] | | | | | | and Healing, 1st | | | | | | floor [place], [place] | | | | | | [address] | | | | | | [phone] | | | +--------+---------+ + + + [...] might be different from the o prabhainal. [id number] KEVON WELCH Date of : 1940 Start of care: 05/19/2013 Date of onset: 03/21/2013 Referring/Attending Practitioner: Misael Myers Primary/Referral Diagnosis/ICD-9: Shoulder pain, right (primary encounter diagnosis) Insurance: Payor: [employer] MEDICARE Plan: [employer] MEDICARE Product Type: P PO Service period from: 05/19/2013 to 01/18/2014 Number visits used/authorized: 06/20 [facility] PHYSICAL THERAPY TREATMENT - ORTHO SUBJECTIVE: Current: [...] Right 07/20/2013 Right 08/11/2013 Flexion 141 155 [id number]* [id number] Pre 125* Post 140 Abduction 146 150 fln705* [id number] Pre 95* Post 132 ER at 90 [...] home exercise program as pt lives in [facility], [place] for posterior do minant shoulder strength Frequency/Duration: Follow up prn due to pt living in [facility], [place] Treatment began: 1031 am Treatment [...] in the student's note. Alise [place], PT [facility] REHABILITATION SERVICES AND HAND THERAPY [address] Mailcode: [place] [address] documented in this encounter Plan of Treatment Not on filedocumented as of this encounter Procedures + +--------+ + + + | Procedure Name | Priori | Date/Time | Associated Diagnosis | Comments | | | ty | | | | + +--------+ + + + | [place] MANUAL THER | Routin | 08/18/2013 | Shoulder pain, | | | TECH,1+REGIONS,EA 15 | e | 6:01 PM | right | | | MIN | | PDT | | | + +--------+ + + + | [place] THERAPEUTIC | Routin | 08/18/2013 | Shoulder [...]
--- OUTSIDE RECORDS SUMMARY | ~2018-07-16 | XMS | Encounter Summary ---
Demographics + + + | Address | [address] | | | [place] [address] | + + + | Home Phone [...] [place] | | | | | [address] | | + + + + + Care Team Providers + +------+ + | Care Garage Construction Equipment Mechanic Name | Role | Phone | [...] | | | | | THERAPY | [place], [place] | for Health | | | | | REFERRAL | [address] | and Healing, | | | | | | Phone: | 1st floor | | | | | | [phone] | [place], [place] | | | | | | Fax: | [address] | | | | | | [phone] | Phone: | | | | | | | [phone] | | | | | | | Fax: | | | | | | | [phone] | +--------+--------+ + + + + Encounter Details +--------+---------+ + + + | Date | Type | Department | Care Team | Description | +--------+---------+ + + + | 10/08/ | Office | [facility] Physical | Philly Rain, | Low back pain | | 2011 | Visit | Therapy Services at | PT [address] | (Primary Dx); | | | | [facility] | [address] | Herniated lumbar | | | | [address] | [place], [place] | intervertebral disc; | | | | Mailcode: CH3P | [address] | Lumbar | | | | [facility] | | radiculopathy; | | | | and Healing, 1st | | Degeneration of | | | | floor [place], [place] | | lumbar | | | | [address] | | intervertebral disc | | | | [phone] | | | +--------+---------+ + + + [...] might be different fr om the original. [id number] KEVON WELCH Date of : 1940 Start of care: 10/09/2011 Date of onset: 09/10/11 Referring/Attending Practitioner: Alcira Bocanegra PA . Primary/Referral Diagnosis/ICD-9: 724.2A Low back pain Insurance: Payor: ODS MEDICARE Plan: ODS MEDICARE Product Type: PPO Service period from: 10/09/2011 to: 11/08/11 Number visits used/authorized: 1/ Neurologist: [facility] [address] [place] [address] (Office) [facility] PHYSICAL THERAPY INITIAL EVALUATION SUBJECTIVE Age: 71 y.o. Sex: male Chief complaint: Chief Complaint Patient presents with LBP - Low back pain History of Presenting Problems: Kevon Welch is a 71 y.o. male with c/o LBP that began about a month ago. 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 PHILLY RAIN PT [facility] REHABILITATION SERVICES AND HAND THERAPY [address] Mailcode: [address] And [facility], 1st [facility] [address] documented in this e ncounter Plan of Treatment Not on filedocumented as of this encounter Procedures + +--------+ + + + | Procedure Name | Priori | Date/Time | Associated Diagnosis | Comments | | | ty | | | | + +--------+ + + + | AL THERAPEUTIC | Routin | 10/09/2011 | Low back pain | | | EXERCISES | e | 1:53 PM | | | | | | PDT | | | + +--------+ + + + | AL PHYS THERAPY | Routin | 10/09/2011 | [...]
--- OUTSIDE RECORDS SUMMARY | ~2018-07-16 | XMS | Encounter Summary ---
Demographics + + + | Address | [address] | | | [place] [address] | + + + | Home Phone [...] [place] | | | | | [address] | | + + + + + Care Team Providers + +------+ + | Care Progress Developer Name | Role | Phone | [...] | | | | | PHYSICAL | [place], [place] | [address] | | | | | THERAPY | [address] | for Health | | | | | REFERRAL | Phone: | and Healing, | | | | | | [phone] | 1st floor | | | | | | Fax: | [place], [place] | | | | | | [phone] | [address] | | | | | | | Phone: | | | | | | | [phone] | | | | | | | Fax: | | | | | | | [phone] | +--------+--------+ + + + + Encounter Details +--------+---------+ + + + | Date | Type | Department | Care Team | Description | +--------+---------+ + + + | 07/23/ | Office | [facility] Physical | Philly Rain, | Shoulder pain | | 2011 | Visit | Therapy Services at | PT [address] | (Primary Dx) | | | | [facility] | [address] | | | | | [address] | [place], [place] | | | | | Mailcode: CH3 | [address] | | | | | [facility] | | | | | | and Ned, 1st | | | | | | floor [place], [place] | | | | | | [address] | | | | | | [phone] | | | +--------+---------+ + + + [...] might be different fr om the original. [id number] KEVON WELCH Date of : 1940 Start of care: 07/24/11 Date of onset:07/22/11 Referring/Attending Practitioner: Misael Myers MD . Primary/Referral Diagnosis/ICD-9: Encounter Diagnoses Name Primary? Shoulder pain Yes Insurance: Payor: ODS MEDICARE Plan: ODS MEDICARE Product Type: PPO Service period from: 07/24/11-08/23/11 Number visits used/authorized: 1 [facility] TH[facility]: Post-op SHOULDER POST OP DAY [...] request that all cancellations be made at [facility] 24 hours in advance by calling [phone]. Our office is open 7am-6pm and there is a Pieceable ssage line 24 hours a day. Any [...] change in their status. PHILLY RAIN PT [facility] REHABILITATION SERVICES AND HAND THERAPY [address] Mailcode: [address] [facility], [address] [place] [address] documented in this e ncounter Plan [...] + | [place] THERAPEUTIC | Routin | 07/24/2011 | Shoulder pain | | | ACTIVITIES | e | 4:38 PM | | | | | | PDT | | | + +--------+ + + + | [place] THERAPEUTIC | Routin | 07/24/2011 | Shoulder pain | | | EXERCISES | e | 4:38 PM | | | | | | PDT | | | + +--------+ + + + | [place] PHYS THERAPY | Routin | 07/24/2011 | [...]
--- OUTSIDE RECORDS SUMMARY | ~2018-07-16 | XMS | Encounter Summary ---
Demographics + + + | Address | [address] | | | [place] [address] | + + + | Home Phone [...] [place] | | | | | [address] | | + + + + + Care Team Providers + +------+ + | Care Nutrition Club Ambassador Name | Role | Phone | + [...] | | | | | | | [address] | | | | | | | [address] | | | | | | | [place], | | | | | | | [place] | | | | | | | [address] | | | | | | | Phone: | | | | | | | [phone] | | | | | | | Fax: | | | | | | | [phone] | +--------+--------+ + + + + Encounter Details +--------+---------+ + + + | Date | Type | Department | Care Team | Description | +--------+---------+ + + + | 04/21/ | Office | Orthopaedics at | Misael Myers MD | Right shoulder pain, | | 2017 | Visit | [facility] [address] | [address] | unspecified | | | | Ave Mailcode: CH12A | [address] | chronicity (Primary | | | | Center for [facility] | [place], [place] | Dx) | | | | and Healing, | [address] | | | | | Floor [place], [place] | [phone] | | | | | [address] | | | | | | [phone] | | | +--------+---------+ + + + [...]
--- OUTSIDE RECORDS SUMMARY | ~2018-07-16 | XMS | Encounter Summary ---
Demographics + + + | Address | [address] | | | [place] [...] [place] | | | | | [address] | | + + + + + Care Team Providers + +------+ + | Care Bait Packer Name | Role | Phone | + [...] + + | 07/21/ | Surgery | [facility] | Misael Myers MD | ARTHROSCOPIC | | 2011 | | [place] for [facility] | [address] | SUBACROMIAL | | | | and Healing Surgery | [facility] | DECOMPRESSION; | | | | Center Admitting | [place], [place] | DISTAL CLAVICLE | | | | Desk Located on the | [address] | RESECTION AND | | | | 4th floor [address] | [phone] | POSSIBLE BICEPS | | | | [address] [place], | | [place] | | | | [place] [address] | | | +--------+---------+ + + + [...]
--- OUTSIDE RECORDS SUMMARY | ~2018-07-16 | XMS | Encounter Summary ---
Demographics + + + | Address | [address] | | | [place] [address] | + + + | Home Phone [...] [place] | | | | | [address] | | + + + + + Care Team Providers + +------+ + | Care Inventory Control Manager Name | Role | Phone | [...] | | | | | Procedures | [facility] | Mailcode: | | | | | PHYSICAL | Rd | [facility] | | | | | THERAPY | [place], [place] | for Health | | | | | REFERRAL | [address] | and Healing, | | | | | | | 1st floor | | | | | | | [place], [place] | | | | | | | [address] | | | | | | | Phone: | | | | | | | [phone] | | | | | | | Fax: | | | | | | | [phone] | +--------+--------+ + + + + Encounter [...] (Primary Dx) | | | | [facility] | [address] | | | | | [address] | [place], [place] | | | | | Mailcode: [facility] | [address] | | | | | [facility] | | | | | | and Healing, 1st | | | | | | floor [place], [place] | | | | | | [address] | | | | | | [phone] | | | +--------+---------+ + + + [...] [place] PT - 10/19/2013 10:15 AM PDT [id number] KEVON WELCH Date of : 1940 Start of care: 05/19/2013 Date of onset: 03/21/2013 Referring/Attending Practitioner: Misael Myers Primary/Referral Diagnosis/ICD-9: Shoulder pain, right (primary encounter diagnosis) Insurance: Payor: [employer] MEDICARE Plan: [employer] MEDICARE Product Type: P PO Service period from: 05/19/2013 to 01/18/2014 Number visits used/authorized: 09/20 [facility] PHYSICAL THERAPY TREATMENT - ORTHO [...] Right 09/22 Right/Left 10/18/2013 Flexion 141 155 [id number]* [id number] Pre 125* Post 140 145 145/150 Abduction 146 150 [id number]* [id number] Pre 95* Post 132 144 140/145 ER [...] as pt lives in [facility], [place] for posterior do minant shoulder strength Frequency/Duration: Follow up prn due to pt living in [facility], [place] Treatment began: 1015 am Treatment ended: 1100 am This note is to serve as the discharge summary if Kevon fails to attend further Physical Th erapy appointments or contact the therapist regarding any change in their status. Alise [place], PT [facility] REHABILITATION SERVICES AND HAND THERAPY [address] Mailcode: [place] [address] documented in this encounter Plan of Treatment Not on filedocumented as of this encounter Procedures + +--------+ + + + | Procedure Name | Priori | Date/Time | Associated Diagnosis | Comments | | | ty | | | | + +--------+ + + + | [place] MANUAL THER | Routin | 10/19/2013 | Shoulder pain, | | | TECH,1+REGIONS,EA 15 | e | 12:14 PM | right | | | MIN | | PDT | | | + +--------+ + + + | [place] THERAPEUTIC | Routin | 10/19/2013 | Shoulder [...]
--- OUTSIDE RECORDS SUMMARY | ~2018-07-16 | XMS | Encounter Summary ---
Demographics + + + | Address | [address] | | | [place] [address] | + + + | Home Phone [...] [place] | | | | | [address] | | + + + + + Care Team Providers + +------+ + | Care Yarn Wrapper Name | Role | Phone | + [...] | | | Procedures | [facility] | Mailcode: | | | | | PHYSICAL | Rd | [facility] | | | | | THERAPY | [place], [place] | for Health | | | | | REFERRAL | [address] | and Healing, | | | | | | | 1st floor | | | | | | | [place], [place] | | | | | | | [address] | | | | | | | Phone: | | | | | | | [phone] | | | | | | | Fax: | | | | | | | [phone] | +--------+--------+ + + + + Encounter [...] | | | [address] | [place], [place] | | | | | Mailcode: [facility] | [address] | | | | | [facility] | | | | | | and Healing, 1st | | | | | | floor [place], [place] | | | | | | [address] | | | | | | [phone] | | | +--------+---------+ + + + [...] might be different from the o saul. [id number] KEVON WELCH Date of : 1940 Start of care: 05/19/2013 Date of onset: 03/21/2013 Referring/Attending Practitioner: Misael Myers Primary/Referral Diagnosis/ICD-9: Shoulder pain, right (primary encounter diagnosis) Insurance: Payor: Intrakr MEDICARE Plan: Intrakr MEDICARE Product Type: P PO Service period from: 05/19/2013 to 01/18/2014 Number visits used/authorized: 07/21 [facility] PHYSICAL THERAPY TREATMENT - ORTHO SUBJECTIVE: [...] Right 07/20/2013 Right 08/11/2013 Flexion 141 155 aji516* [id number] Pre 125* Post 140 Abduction 146 150 pdj551* bggi047 Pre 95* Post 132 ER at 90 [...] home exercise program as pt lives in [facility], [place] for posterior do minant shoulder strength Frequency/Duration: Follow up prn due to pt living in [facility], [place] Treatment began: 1100 am Treatment [...] in the student's note. Alise Washington, PT [facility] REHABILITATION SERVICES AND HAND THERAPY [address] Mailcode: [place] [address] documented in this encounter Plan of Treatment Not on filedocumented as of this encounter Procedures + +--------+ + + + | Procedure Name | Priori | Date/Time | Associated Diagnosis | Comments | | | ty | | | | + +--------+ + + + | [place] MANUAL THER | Routin | 08/30/2013 | Shoulder pain, | | | TECH,1+REGIONS,EA 15 | e | 1:58 PM | right | | | MIN | | PDT | | | + +--------+ + + + | [place] THERAPEUTIC | Routin | 08/30/2013 | Shoulder [...]
--- OUTSIDE RECORDS SUMMARY | ~2018-07-16 | XMS | Encounter Summary ---
Demographics + + + | Address | [address] | | | [place] [address] | + + + | Home Phone | | + + + | Preferred Language | Unknown | + + + | Marital Status | | + + + | Rastafari Affiliation | NON | + + + [...] [place] | | | | | [address] | | + + + + + Care Team Providers + +------+ + | Care Manager Inventory Management Name | Role | Phone | + [...] | | | | Thoracic or | [address] | [place], [place] | | | | | lumbosacral | Phone: | [address] | | | | | neuritis or | [phone] | Phone: | | | | | radiculitis, | Fax: | [phone] | | | | | unspecified | [phone] | Fax: | | | | | | | [phone] | | | | | Degeneration | [...] [facility] | [facility] | Degeneration of | | | | [address] | Road [place], [place] | lumbar | | | | Mailcode: [facility] | [address] | intervertebral disc | | | | [facility] | | | | | | and Ned, 1st | | | | | | floor [place], [place] | | | | | | [address] | | | | | | [phone] | | | +--------+---------+ + + + [...] Dailey, PT - 12/25/2011 8:46 AM PST [id number] KEVON WELCH Date of : 1940 Start of care: 10/09/2011 Date of onset: 09/10/11 Referring/Attending Practitioner: Alcira Bocanegra PA ; Clara Fernandez/Referral Di agnosis/ICD-9: 722.10H Herniated lumbar intervertebral disc Insurance: Payor: ODS MEDICARE Plan: ODS MEDICARE Product Type: PPO Service period from: 12/25/2011 to: 01/23/12 Number visits used/authorized: 6/ Neurologist: Dr. Rafal Benites [facility] [address] [place] [address] (Office) Neurosurgeon: Sen Whitman [address] [place] [address] [facility] PHYSICAL THERAPY SUBJECTIVE Age: 71 [...] ago. He was bending over to picker tender a garden hose and felt increased R [...] Social History: lives with Recreational Activities/Hobbies: plays [employer]; reading; does a lot of computer/keyboarding [...] disectomy. 1x/month to accomadate long drive from [place]. Treatment began: 830 Treatment ended: 915 This [...] + | [place] THERAPEUTIC | Routin | 12/25/2011 | Herniated lumbar | | | EXERCISES | e | 9:41 AM | intervertebral disc | | | | | PST | Degeneration of | | | | | | lumbar | | | | | | intervertebral disc | | + +--------+ + + + | CO PHYS THERAPY | Routin | 12/25/2011 | [...]
--- OUTSIDE RECORDS SUMMARY | ~2018-07-16 | XMS | Encounter Summary ---
Demographics + + + | Address | [address] | | | [place] [address] | + + + | Home Phone | | + + + | Preferred Language | Unknown | + + + | Marital Status | | + + + | Hindu Affiliation | NON | + + + [...] [place] | | | | | [address] | | + + + + + Care Team Providers + +------+ + | Care Health Officer Name | Role | Phone | [...] | | | | | THERAPY | [place], [place] | for Health | | | | | REFERRAL | [address] | and Healing, | | | | | | Phone: | 1st floor | | | | | | [phone] | [place], [place] | | | | | | Fax: | [address] | | | | | | [phone] | Phone: | | | | | | | [phone] | | | | | | | Fax: | | | | | | | [phone] | +--------+--------+ + + + + Encounter Details +--------+---------+ + + + | Date | Type | Department | Care Team | Description | +--------+---------+ + + + | 10/08/ | Office | [facility] | Philly Rain, | Low back pain | | 2011 | Visit | Therapy Services at | PT [address] | (Primary Dx); | | | | [facility] | [address] | Herniated lumbar | | | | [address] | [place], [place] | intervertebral disc; | | | | Mailcode: [facility] | [address] | Lumbar | | | | [facility] | | radiculopathy; | | | | and Healing, 1st | | Degeneration of | | | | floor [place], [place] | | lumbar | | | | [address] | | intervertebral disc | | | | [phone] | | | +--------+---------+ + + + [...] might be different fr om the original. [id number] KEVON WELCH Date of : 1940 Start of care: 10/09/2011 Date of onset: 09/10/11 Referring/Attending Practitioner: Alcira Bocanegra PA . Primary/Referral Diagnosis/ICD-9: 724.2A Low back pain Insurance: Payor: ODS MEDICARE Plan: ODS MEDICARE Product Type: PPO Service period from: 10/09/2011 to: 11/08/11 Number visits used/authorized: 1/ Neurologist: Dr. Rafal [facility] [address] [place] [address] (Office) [facility] PHYSICAL THERAPY INITIAL EVALUATION SUBJECTIVE Age: 71 y.o. Sex: male Chief complaint: Chief Complaint Patient presents with LBP - Low back pain History of Presenting Problems: Kevon Welch is a 71 y.o. male with c/o LBP that began about a month ago. 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 PHILLY RAIN PT [facility] REHABILITATION SERVICES AND HAND THERAPY [address] Mailcode: [address] And [facility], 1st [facility] [address] documented in this e ncounter Plan of Treatment Not on filedocumented as of this encounter Procedures + +--------+ + + + | Procedure Name | Priori | Date/Time | Associated Diagnosis | Comments | | | ty | | | | + +--------+ + + + | [place] THERAPEUTIC | Routin | 10/09/2011 | Low back pain | | | EXERCISES | e | 1:53 PM | | | | | | PDT | | | + +--------+ + + + | SD PHYS THERAPY | Routin | 10/09/2011 | [...]
--- OUTSIDE RECORDS SUMMARY | ~2018-07-16 | XMS | Encounter Summary ---
Demographics + + + | Address | [address] | | | [place] [address] | + + + | Home Phone | | + + + | Preferred Language | Unknown | + + + | Marital Status | | + + + | Christian Affiliation | NON | + + + | Race | White | + + + | Ethnic Group | Not or | + + + Author + + + | Author | [facility] | + + + | Organization | [facility] | + + + | Address | Unknown | + + + | Phone | Unavailable | + + + Support + + + + + | Name | Relationship | Address | Phone | + + + + + | Elizabeth Welch | ECON | [address] | | | | | [place] | | | | | [address] | | + + + + + Care Team Providers + +------+ + | Care Head Of Art Name | Role | Phone | + [...] | | shoulder | Provider Per | [address] | | | | | pain | Patient NO | [address] | | | | | | REFERRING | [address] [place], | | | | | | PROVIDER PER | [place] | | | | | | [place] | [address] | | | | | | | Phone: | | | | | | | [phone] | | | | | | | Fax: | | | | | | | [phone] | +--------+--------+ + + + + Encounter Details +--------+---------+ + + + | Date | Type | Department | Care Team | Description | +--------+---------+ + + + | 03/27/ | Office | Orthopaedics at | Misael Myers MD | Rotator cuff | | 2011 | Visit | [facility] [address] | [address] | tendinitis (Primary | | | | Ave Mailcode: [facility] | [address] | Dx) | | | | [place] for [facility] | [place], [place] | | | | | and [facility], | [address] | | | | | Floor [place], [place] | [phone] | | | | | [address] | | | | | | [phone] | | | +--------+---------+ + + + [...]
--- OUTSIDE RECORDS SUMMARY | ~2018-07-16 | XMS | Encounter Summary ---
Demographics + + + | Address | [address] | | | [place] [address] | + + + | Home Phone [...] [place] | | | | | [address] | | + + + + + Care Team Providers + +------+ + | Care Metal Furniture Assembly Supervisor Name | Role | Phone [...] | 2017 | Encounter | Lab at [facility] [address] | [address] | | | | | [address] Mailcode: | [address] | | | | | [facility] | [place], [place] | | | | | Health and [facility], | [address] | | | | | 3rd Floor [place], | [phone] | | | | | [place] [address] | | | | | | [phone] | | | +--------+ + + + [...]
--- OUTSIDE RECORDS SUMMARY | ~2018-07-16 | XMS | Encounter Summary ---
Demographics + + + | Address | [address] | | | [place] [address] | + + + | Home Phone [...] [place] | | | | | [address] | | + + + + + Care Team Providers + +------+ + | Care Lead Enterprise Architect Name | Role | Phone | + [...] | | | | | THERAPY | [place], [place] | for Health | | | | | REFERRAL | [address] | and Healing, | | | | | | Phone: | 1st floor | | | | | | [phone] | [place], [place] | | | | | | Fax: | [address] | | | | | | [phone] | Phone: | | | | | | | [phone] | | | | | | | Fax: | | | | | | | [phone] | +--------+--------+ + + + + Encounter Details +--------+---------+ + + + | Date | Type | Department | Care Team | Description | +--------+---------+ + + + | 10/08/ | Office | [facility] | Philly Rain, | Low back pain | | 2011 | Visit | Therapy Services at | PT [address] | (Primary Dx); | | | | [facility] | [address] | Herniated lumbar | | | | [address] | [place], [place] | intervertebral disc; | | | | Mailcode: [facility] | [address] | Lumbar | | | | [facility] | | radiculopathy; | | | | and Healing, 1st | | 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 [id number] KEVON WELCH Date of : 1940 Start of care: 10/09/2011 Date of onset: 09/10/11 Referring/Attending Practitioner: Alcira Bocanegra PA . Primary/Referral Diagnosis/ICD-9: 724.2A Low back pain Insurance: Payor: ODS MEDICARE Plan: ODS MEDICARE Product Type: PPO Service period from: 10/09/2011 to: 11/08/11 Number visits used/authorized: 1/ Neurologist: Dr. Rafal [facility] [address] [place] [address] (Office) [facility] PHYSICAL THERAPY INITIAL EVALUATION SUBJECTIVE Age: [...] Social History: lives with Recreational Activities/Hobbies: plays bass[employer]ubis[employer]; reading; does a lot of computer/keyboarding Functional [...] DF 4- 4+ L5 EHL 4 4+ L5-Q3Tefhd Eversion 4 5 S1 Calf Raises 5 [...] change in their status. PHILLY RAIN PT [facility] REHABILITATION SERVICES AND HAND THERAPY [address] Mailcode: [address] And [facility], 1st [facility] [address] documented in this e ncounter Plan of Treatment Not on filedocumented as of this encounter Procedures + +--------+ + + + | Procedure Name | Priori | Date/Time | Associated Diagnosis | Comments | | | ty | | | | + +--------+ + + + | [place] THERAPEUTIC | Routin | 10/09/2011 | Low back pain | | | EXERCISES | e | 1:53 PM | | | | | | PDT | | | + +--------+ + + + | [place] PHYS THERAPY | Routin | 10/09/2011 | [...]
--- OUTSIDE RECORDS SUMMARY | ~2018-07-16 | XMS | Encounter Summary ---
Demographics + + + | Address | [address] | | | [place] [address] | + + + | Home Phone [...] [place] | | | | | [address] | | + + + + + Care Team Providers + +------+ + | Care Seismographer Name | Role | Phone | + [...] | | | | | THERAPY | [place], [place] | for Health | | | | | REFERRAL | [address] | and Healing, | | | | | | | 1st floor | | | | | | | [place], [place] | | | | | | | [address] | | | | | | | Phone: | | | | | | | [phone] | | | | | | | Fax: | | | | | | | [phone] | +--------+--------+ + + + + Encounter [...] | | [facility] | [address] | | | | | [address] | [place], [place] | | | | | Mailcode: [facility] | [address] | | | | | [facility] | | | | | | and Healing, 1st | | | | | | floor [place], [place] | | | | | | [address] | | | | | | [phone] | | | +--------+---------+ + + + [...] Washington PT - 10/19/2013 10:15 AM PDT [id number] KEVON WELCH Date of : 1940 Start of care: 05/19/2013 Date of onset: 03/21/2013 Referring/Attending Practitioner: Misael Myers Primary/Referral Diagnosis/ICD-9: Shoulder pain, right (primary encounter diagnosis) Insurance: Payor: InVitae MEDICARE Plan: InVitae MEDICARE Product Type: P PO Service period from: 05/19/2013 to 01/18/2014 Number visits used/authorized: 09/20 [facility] PHYSICAL THERAPY TREATMENT - ORTHO SUBJECTIVE: [...] Right 09/22 Right/Left 10/18/2013 Flexion 141 155 [id number]* [id number] Pre 125* Post 140 145 145/150 Abduction 146 150 yby887* thbm311 Pre 95* Post 132 144 140/145 ER [...] pt living in [facility], [place] Treatment began: 1015 am Treatment ended: 1100 am This note is to serve as the discharge summary if Kevon fails to attend further Physical Th erapy appointments or contact the therapist regarding any change in their status. Alise Washington, PT [facility] REHABILITATION SERVICES AND HAND THERAPY [address] Mailcode: [place] [address] documented in this encounter Plan of Treatment Not on filedocumented as of this encounter Procedures + +--------+ + + + | Procedure Name | Priori | Date/Time | Associated Diagnosis | Comments | | | ty | | | | + +--------+ + + + | [place] MANUAL THER | Routin | 10/19/2013 | Shoulder pain, | | | TECH,1+REGIONS,EA 15 | e | 12:14 PM | right | | | MIN | | PDT | | | + +--------+ + + + | [place] THERAPEUTIC | Routin | 10/19/2013 | Shoulder [...]
--- OUTSIDE RECORDS SUMMARY | ~2018-07-16 | XMS | Encounter Summary ---
Demographics + + + | Address | [address] | | | [place] [address] | + + + | Home Phone [...] [place] | | | | | [address] | | + + + + + Care Team Providers + +------+ + | Care Excavator Backhoe Operator Name | Role | Phone | [...] | | | | | Procedures | [facility] | Mailcode: | | | | | PHYSICAL | Rd | [facility] | | | | | THERAPY | [place], [place] | for Health | | | | | REFERRAL | [address] | and Healing, | | | | | | | 1st floor | | | | | | | [place], [place] | | | | | | | [address] | | | | | | | Phone: | | | | | | | [phone] | | | | | | | Fax: | | | | | | | [phone] | +--------+--------+ + + + + Encounter [...] | | [facility] | [address] | | | | | [address] | [place], [place] | | | | | Mailcode: [facility] | [address] | | | | | [facility] | | | | | | and Healing, 1st | | | | | | floor [place], [place] | | | | | | [address] | | | | | | [phone] | | | +--------+---------+ + + + [...] might be different from the o prabhainal. [id number] KEVON WELCH Date of : 1940 Start of care: 05/19/2013 Date of onset: 03/21/2013 Referring/Attending Practitioner: Misael Myers Primary/Referral Diagnosis/ICD-9: Shoulder pain, right (primary encounter diagnosis) Insurance: Payor: Cortex MEDICARE Plan: Cortex MEDICARE Product Type: P PO Service period from: 05/19/2013 to 01/18/2014 Number visits used/authorized: 06/20 [facility] PHYSICAL THERAPY TREATMENT - ORTHO [...] Right 07/20/2013 Right 08/11/2013 Flexion 141 155 fzs017* [id number] Pre 125* Post 140 Abduction 146 150 hlm606* gykd596 Pre 95* Post 132 ER at 90 [...] exercise program as pt lives in [place], [place] for posterior do minant shoulder strength Frequency/Duration: Follow up prn due to pt living in [place], [place] Treatment began: 1031 am Treatment ended: [...] in the student's note. Alise [place], PT [facility] REHABILITATION SERVICES AND HAND THERAPY [address] Mailcode: [place] [address] documented in this encounter Plan of Treatment Not on filedocumented as of this encounter Procedures + +--------+ + + + | Procedure Name | Priori | Date/Time | Associated Diagnosis | Comments | | | ty | | | | + +--------+ + + + | [place] MANUAL THER | Routin | 08/18/2013 | Shoulder pain, | | | TECH,1+REGIONS,EA 15 | e | 6:01 PM | right | | | MIN | | PDT | | | + +--------+ + + + | [place] THERAPEUTIC | Routin | 08/18/2013 | Shoulder [...]
--- OUTSIDE RECORDS SUMMARY | ~2018-07-16 | XMS | Encounter Summary ---
Demographics + + + | Address | [address] | | | [place] [address] | + + + | Home Phone | | + + + | Preferred Language | Unknown | + + + | Marital Status | | + + + | Jew Affiliation | NON | + + + | Race | White | + + + | Ethnic Group | Not or | + + + Author + + + | Author | [facility] | + + + | Organization | [facility] | + + + | Address | Unknown | + + + | Phone | Unavailable | + + + Support + + + + + | Name | Relationship | Address | Phone | + + + + + | Elizabeth Welch | ECON | [address] | | | | | [place] | | | | | [address] | | + + + + + Care Team Providers + +------+ + | Care Steam Locomotive Firer/Fireman Name | Role | Phone | + [...] Therapy Services at | PT [address] | | | | | [facility] | [address] | | | | | [address] | [place], [place] | | | | | Mailcode: [facility] | [address] | | | | | [facility] | | | | | | and Healing, 1st | | | | | | floor [place], [place] | | | | | | [address] | | | | | | [phone] | | | +--------+ + + + [...]
--- OUTSIDE RECORDS SUMMARY | ~2018-07-16 | XMS | Encounter Summary ---
Demographics + + + | Address | [address] | | | [place] [address] | + + + | Home Phone [...] + + | Author | [facility] | + + + | Organization | [facility] | + + + | Address | Unknown | + + + | Phone | Unavailable | + + + Support + + + + + | Name | Relationship | Address | Phone | + + + + + | Elizabeth Welch | ECON | [address] | | | | | [place] | | | | | [address] | | + + + + + Care Team Providers + +------+ + | Care Tower Foreman Name | Role | Phone | + [...] + + | 07/21/ | Hospital | [facility] | Misael Myers MD | | | 2011 | Encounter | [facility] | [address] | | | | | [facility] | [facility] | | | | | FOR HEALTH AND | [place], [place] | | | | | [facility], | [address] | | | | | [place] [address] | [phone] | | | | | [phone] | | | +--------+ + + + [...]
--- OUTSIDE RECORDS SUMMARY | ~2018-07-16 | XMS | Encounter Summary ---
Demographics + + + | Address | [address] | | | [place] [address] | + + + | Home Phone [...] [place] | | | | | [address] | | + + + + + Care Team Providers + +------+ + | Care Coremaking Machine Setter Name | Role | Phone | + [...] | | | | | PHYSICAL | [facility] [place] | [facility] | | | | | THERAPY | [address] | for Health | | | | | REFERRAL | Phone: | and Healing, | | | | | | [phone] | 1st floor | | | | | | Fax: | [place], [place] | | | | | | [phone] | [address] | | | | | | | Phone: | | | | | | | [phone] | | | | | | | Fax: | | | | | | | [phone] | +--------+--------+ + + + + Encounter [...] | | | [facility] | [address] | | | | | [address] | [place], [place] | | | | | Mailcode: [facility] | [address] | | | | | [facility] | | | | | | and Healing, 1st | | | | | | floor [facility] [place] | | | | | | [address] | | | | | | [phone] | | | +--------+---------+ + + + [...] might be different fr om the original. [id number] KEVON WELCH Date of : 1940 Start of care: 07/24/11 Date of onset:07/22/11 Referring/Attending Practitioner: Misael Myers MD . Primary/Referral Diagnosis/ICD-9: Encounter Diagnoses Name Primary? Shoulder pain Yes Insurance: Payor: ODS MEDICARE Plan: ODS MEDICARE Product Type: PPO Service period from: 07/24/11-08/23/11 Number visits used/authorized: 2 [facility] PHYSICAL THERAPY: Post-op SHOULDER POST OP DAY [...] weeks Treatment began: 1345 Treatment ended: 1420; [id number] for game ready Reviewed cancel/no show policy with patient. Pt voiced understanding. "At times we understand you must cancel. We request that all cancellations be made at [facility] t 24 hours in advance by calling [phone]. Our office is open 7am-6pm and there is a [employer] line 24 hours a day. Any appointment [...] their status. LENA RAIN PT [facility] REHABILITATION SERVICES AND HAND THERAPY [address] Mailcode: [address] And [facility], [address] [place] [address] documented in this e ncounter Plan of Treatment Not on filedocumented as of this encounter Procedures + +--------+ + + + | Procedure Name | Priori | Date/Time | Associated Diagnosis | Comments | | | ty | | | | + +--------+ + + + | [place] MANUAL THER | Routin | 08/05/2011 | Shoulder pain | | | TECH,1+REGIONS,EA 15 | e | 4:04 PM | | | | MIN | | PDT | | | + +--------+ + + + | [place] THERAPEUTIC | Routin | 08/05/2011 | Shoulder [...]
--- OUTSIDE RECORDS SUMMARY | ~2018-07-16 | XMS | Encounter Summary ---
Demographics + + + | Address | [address] | | | [place] [address] | + + + | Home Phone [...] [place] | | | | | [address] | | + + + + + Care Team Providers + +------+ + | Care Biodiesel Production Technician Name | Role | Phone | [...] | | | | | Procedures | [facility] | Mailcode: | | | | | PHYSICAL | Rd | [facility] | | | | | THERAPY | [place], [place] | for Health | | | | | REFERRAL | [address] | and Healing, | | | | | | | 1st floor | | | | | | | [place], [place] | | | | | | | [address] | | | | | | | Phone: | | | | | | | [phone] | | | | | | | Fax: | | | | | | | [phone] | +--------+--------+ + + + + Encounter [...] | | | | [facility] | [address] | | | | | [address] | [place], [place] | | | | | Mailcode: [facility] | [address] | | | | | [facility] | | | | | | and Healing, 1st | | | | | | floor [place], [place] | | | | | | [address] | | | | | | [phone] | | | +--------+---------+ + + + [...] Washington PT - 10/19/2013 10:15 AM PDT [id number] KEVON WELCH Date of : 1940 Start of care: 05/19/2013 Date of onset: 03/21/2013 Referring/Attending Practitioner: Misael Myers Primary/Referral Diagnosis/ICD-9: Shoulder pain, right (primary encounter diagnosis) Insurance: Payor: [employer] MEDICARE Plan: Transmit MEDICARE Product Type: P PO Service period from: 05/19/2013 to 01/18/2014 Number visits used/authorized: 09/20 [facility] PHYSICAL THERAPY TREATMENT - [...] Right 09/22 Right/Left 10/18/2013 Flexion 141 155 [id number]* [id number] Pre 125* Post 140 145 145/150 Abduction 146 150 [id number]* [id number] Pre 95* Post 132 144 140/145 ER [...] home exercise program as pt lives in [facility], [place] for posterior do minant shoulder strength Frequency/Duration: Follow up prn due to pt living in [facility] Treatment began: 1015 am Treatment ended: 1100 am This note is to serve as the discharge summary if Kevon fails to attend further Physical Th erapy appointments or contact the therapist regarding any change in their status. Alise Washington, PT [facility] REHABILITATION SERVICES AND HAND THERAPY [address] Mailcode: [place] [address] documented in this encounter Plan of Treatment Not on filedocumented as of this encounter Procedures + +--------+ + + + | Procedure Name | Priori | Date/Time | Associated Diagnosis | Comments | | | ty | | | | + +--------+ + + + | [place] MANUAL THER | Routin | 10/19/2013 | Shoulder pain, | | | TECH,1+REGIONS,EA 15 | e | 12:14 PM | right | | | MIN | | PDT | | | + +--------+ + + + | [place] THERAPEUTIC | Routin | 10/19/2013 | Shoulder [...]
--- OUTSIDE RECORDS SUMMARY | ~2018-07-16 | XMS | Encounter Summary ---
Demographics + + + | Address | [address] | | | [place] [address] | + + + | Home Phone [...] [place] | | | | | [address] | | + + + + + Care Team Providers + +------+ + | Care Real Estate Transaction Manager Name | Role | Phone | [...] W | appointment | | | | [facility] | [address] | | | | | [address] | [place], [place] | | | | | Mailcode: [facility] | [address] | | | | | [facility] | | | | | | and Healing, 1st | | | | | | floor [place], [place] | | | | | | [address] | | | | | | [phone] | | | +--------+ + + + [...]
--- OUTSIDE RECORDS SUMMARY | ~2018-07-16 | XMS | Encounter Summary ---
Demographics + + + | Address | [address] | | | [place] [address] | + + + | Home Phone [...] [place] | | | | | [address] | | + + + + + Care Team Providers + +------+ + | Care Director Inbound Sales Name | Role | Phone | [...] | | | | | THERAPY | [place], [place] | for Health | | | | | REFERRAL | [address] | and Healing, | | | | | | | 1st floor | | | | | | | [place], [place] | | | | | | | [address] | | | | | | | Phone: | | | | | | | [phone] | | | | | | | Fax: | | | | | | | [phone] | +--------+--------+ + + + + Encounter [...] [facility] | [address] | | | | | [address] | [place], [place] | | | | | Mailcode: [facility] | [address] | | | | | [facility] | | | | | | and Healing, 1st | | | | | | floor [place], [place] | | | | | | [address] | | | | | | [phone] | | | +--------+---------+ + + + [...] might be different from the o saul. [id number] KEVON WELCH Date of : 1940 Start of care: 05/19/2013 Date of onset: 03/21/2013 Referring/Attending Practitioner: Misael Myers Primary/Referral Diagnosis/ICD-9: Shoulder pain, right (primary encounter diagnosis) Insurance: Payor: [employer] MEDICARE Plan: [employer] MEDICARE Product Type: P PO Service period from: 05/19/2013 to 01/18/2014 Number visits used/authorized: 07/21 [facility] PHYSICAL THERAPY TREATMENT - ORTHO SUBJECTIVE: Current: [...] Right 07/20/2013 Right 08/11/2013 Flexion 141 155 [id number]* [id number] Pre 125* Post 140 Abduction 146 150 [id number]* [id number] Pre 95* Post 132 ER at 90 [...] home exercise program as pt lives in [facility], [place] for posterior do minant shoulder strength Frequency/Duration: Follow up prn due to pt living in [facility], [place] Treatment began: 1100 am Treatment [...] the student's note. Alise Washington, PT [facility] REHABILITATION SERVICES AND HAND THERAPY [address] Mailcode: [place] [address] documented in this encounter Plan of Treatment Not on filedocumented as of this encounter Procedures + +--------+ + + + | Procedure Name | Priori | Date/Time | Associated Diagnosis | Comments | | | ty | | | | + +--------+ + + + | MA MANUAL THER | Routin | 08/30/2013 | Shoulder pain, | | | TECH,1+REGIONS,EA 15 | e | 1:58 PM | right | | | MIN | | PDT | | | + +--------+ + + + | MA THERAPEUTIC | Routin | 08/30/2013 | Shoulder [...]
--- OUTSIDE RECORDS SUMMARY | ~2018-07-16 | XMS | Encounter Summary ---
Demographics + + + | Address | [address] | | | [place] [address] | + + + | Home Phone [...] [place] | | | | | [address] | | + + + + + Care Team Providers + +------+ + | Care Licensing And Registration Director Name | Role | Phone | [...] | | | | | PHYSICAL | [facility] [place] | [facility] | | | | | THERAPY | [address] | for Health | | | | | REFERRAL | Phone: | and Healing, | | | | | | [phone] | 1st floor | | | | | | Fax: | [place], [place] | | | | | | [phone] | [address] | | | | | | | Phone: | | | | | | | [phone] | | | | | | | Fax: | | | | | | | [phone] | +--------+--------+ + + + + Encounter [...] | [facility] | [address] | | | | | [address] | [place], [place] | | | | | Mailcode: CH[facility]P | [address] | | | | | [facility] | | | | | | and Healing, 1st | | | | | | floor [facility] [place] | | | | | | [address] | | | | | | [phone] | | | +--------+---------+ + + + [...] might be different fr om the original. [id number] KEVON WELCH Date of : 1940 Start of care: 07/24/11 Date of onset:07/22/11 Referring/Attending Practitioner: Misael Myers MD . Primary/Referral Diagnosis/ICD-9: Encounter Diagnoses Name Primary? Shoulder pain Yes Insurance: Payor: ODS MEDICARE Plan: ODS MEDICARE Product Type: PPO Service period from: 07/24/11-08/23/11 Number visits used/authorized: 3 [facility] PHYSICAL THERAPY: Post-op SHOULDER PO week [...] request that all cancellations be made at [facility] 24 hours in advance by calling [phone]. Our office is open 7am-6pm and there is a KeyView ssage line 24 hours a day. Any [...] their status. LENA RAIN PT [facility] REHABILITATION SERVICES AND HAND THERAPY [address] Mailcode: [address] [facility], [address] [place] [address] documented in this e ncounter Plan of Treatment Not on filedocumented as of this encounter Procedures + +--------+ + + + | Procedure Name | Priori | Date/Time | Associated Diagnosis | Comments | | | ty | | | | + +--------+ + + + | [place] MANUAL THER | Routin | 08/20/2011 | Shoulder pain | | | TECH,1+GERHARD,EA 15 | e | 12:40 PM | | | | MIN | | PDT | | | + +--------+ + + + | [place] THERAPEUTIC | Routin | 08/20/2011 | Shoulder [...]
--- OUTSIDE RECORDS SUMMARY | ~2018-07-16 | XMS | Encounter Summary ---
Demographics + + + | Address | [address] | | | [place] [address] | + + + | Home Phone [...] [place] | | | | | [address] | | + + + + + Care Team Providers + +------+ + | Care Wire Coiner Name | Role | Phone | + [...] | | | | | PHYSICAL | [place], [place] | [address] | | | | | THERAPY | [address] | for Health | | | | | REFERRAL | Phone: | and Healing, | | | | | | [phone] | 1st floor | | | | | | Fax: | [place], [place] | | | | | | [phone] | [address] | | | | | | | Phone: | | | | | | | [phone] | | | | | | | Fax: | | | | | | | [phone] | +--------+--------+ + + + + Encounter [...] | | [facility] | [address] | | | | | [address] | [place], [place] | | | | | Mailcode: CH3 | [address] | | | | | [facility] | | | | | | and Ned, 1st | | | | | | floor [place], [place] | | | | | | [address] | | | | | | [phone] | | | +--------+---------+ + + + [...] might be different fr om the original. [id number] KEVON WELCH Date of : 1940 Start of care: 06/30/2011 Date of onset:12/24/10 Referring/Attending Practitioner: Misael Myers MD . Primary/Referral Diagnosis/ICD-9: Encounter Diagnoses Name Primary? Shoulder pain Yes Insurance: Payor: ODS MEDICARE Plan: ODS MEDICARE Product Type: PPO Service period from: 06/30/2011 to: 09/28/11 Number visits used/authorized: 4 [facility] PHYSICAL THERAPY: Pre-op SHOULDER Subjective: Pt is [...] t 24 hours in advance by calling [phone]. Our office is open 7am-6pm and there is a [employer] ssage line 24 hours a day. Any [...] change in their status. PHILLY RAIN PT [facility] REHABILITATION SERVICES AND HAND THERAPY [address] Mailcode: [address] And [facility], [address]st [address] [facility] [address] documented in this e ncounter Plan of Treatment Not on filedocumented as of this encounter Procedures + +--------+ + + + | Procedure Name | Priori | Date/Time | Associated Diagnosis | Comments | | | ty | | | | + +--------+ + + + | [place] MANUAL THER | Routin | 06/30/2011 | Shoulder pain | | | TECH,1+REGIONS,EA 15 | e | 4:12 PM | | | | MIN | | PDT | | | + +--------+ + + + | [place] THERAPEUTIC | Routin | 06/30/2011 | Shoulder [...]
--- OUTSIDE RECORDS SUMMARY | ~2018-07-16 | XMS | Encounter Summary ---
Demographics + + + | Address | [address] | | | [place] [address] | + + + | Home Phone [...] [place] | | | | | [address] | | + + + + + Care Team Providers + +------+ + | Care Injection Maintenance Technician Name | Role | Phone | [...] W | appointment | | | | [facility] | [address] | | | | | [address] | [place], [place] | | | | | Mailcode: [facility] | [address] | | | | | [facility] | | | | | | and Healing, 1st | | | | | | floor [place], [place] | | | | | | [address] | | | | | | [phone] | | | +--------+ + + + [...]
--- OUTSIDE RECORDS SUMMARY | ~2018-07-16 | XMS | Encounter Summary ---
Demographics + + + | Address | [address] | | | [place] [address] | + + + | Home Phone [...] [place] | | | | | [address] | | + + + + + Care Team Providers + +------+ + | Care Industrial Staff Nurse Name | Role | Phone | [...] | 2017 | Encounter | Lab at [facility] [address] | [address] | | | | | [address] Mailcode: | [address] | | | | | [facility] [place], [place] | | | | | Health and [facility], | [address] | | | | | 3rd Floor [place], | [phone] | | | | | [place] [address] | | | | | | [phone] | | | +--------+ + + + [...]
--- OUTSIDE RECORDS SUMMARY | ~2018-07-16 | XMS | Encounter Summary ---
Demographics + + + | Address | [address] | | | [place] [address] | + + + | Home Phone [...] [place] | | | | | [address] | | + + + + + Care Team Providers + +------+ + | Care Portable Track Line Marker Name | Role | Phone | + [...] | | | | | PHYSICAL | [facility] [place] | [facility] | | | | | THERAPY | [address] | for Health | | | | | REFERRAL | Phone: | and Healing, | | | | | | [phone] | 1st floor | | | | | | Fax: | [place], [place] | | | | | | [phone] | [address] | | | | | | | Phone: | | | | | | | [phone] | | | | | | | Fax: | | | | | | | [phone] | +--------+--------+ + + + + Encounter [...] | | | [facility] | [address] | | | | | [address] | [place], [place] | | | | | Mailcode: CH3P | [address] | | | | | [facility] | | | | | | and Healing, 1st | | | | | | floor [facility] [place] | | | | | | [address] | | | | | | [phone] | | | +--------+---------+ + + + [...] PDTFormatting of this note might be different [facility] the original. [id number] KEVON WELCH Date of : 1940 Start of care: 02/13/2011 Date of onset: 12/24/2010 Referring/Attending Practitioner: Misael Myers MD . Primary/Referral Diagnosis/ICD-9: Encounter Diagnoses Name Primary? 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 PHILLY RAIN, PT [facility] REHABILITATION SERVICES AND HAND THERAPY [address] Mailcode: [facility], 1st [facility] [address] Philly Killian PT - 05/12/2011 9:14 AM PDT 04/28/11 PT Encounter Note: Kevon Welch 70 yrs, Male, 1940 PCP: DOYLE JOHNSON Ref: NO REFERRING PROVIDER PER PATIENT, Primary Ins.: ODS MEDI Pt seen briefly [facility] by PT per Dr. Acevedo request: Not charged S: Pt undergoing PT at clinic in [place] 200 miles from here; has been [...] modify RX as appropriate PHILLY RAIN PT [facility] [address] Mailcode: [facility], 12th [facility] [address] + NEERS. + Telles, + Hornblowers [...] + | [place] THERAPEUTIC | Routin | 05/15/2011 | Shoulder [...]
--- OUTSIDE RECORDS SUMMARY | ~2018-07-16 | XMS | Encounter Summary ---
Demographics + + + | Address | [address] | | | [place] [address] | + + + | Home Phone [...] [place] | | | | | [address] | | + + + + + Care Team Providers + +------+ + | Care Sales And Catering Coordinator Name | Role | Phone | [...] | | sprain | REFERRING | Rd [place], | | | | | Osteoarthros | PROVIDER PER | [place] | | | | | [place], | [place] | [address] | | | | | unspecified | | Phone: | | | | | whether | | [phone] | | | | | generalized | | Fax: | | | | | or | | [phone] | | | | | localized, | [...] | | | | | | | CL[facility]ICAL [facility] | | | | | | | [...] | | | Ave Mailcode: CH12A | [place], [place] | | | | | [facility] | [address] | | | | | and [facility], [facility] | [phone] | | | | | Floor [place], [place] | | | | | | [address] | | | | | | [phone] | | | +--------+---------+ + + + [...]
--- OUTSIDE RECORDS SUMMARY | ~2018-07-16 | XMS | Encounter Summary ---
Demographics + + + | Address | [address] | | | [place] [address] | + + + | Home Phone [...] [place] | | | | | [address] | | + + + + + Care Team Providers + +------+ + | Care Auto Claims Adjuster Name | Role | Phone | + [...] | | | | [facility] | [address] | | | | | [address] | [place], [place] | | | | | Mailcode: CH3P | [address] | | | | | [facility] | | | | | | and Healing, 1st | | | | | | floor [facility] [place] | | | | | | [address] | | | | | | [phone] | | | +--------+---------+ + + + [...] Acosta, PT - 02/13/2011 6:28 PM PST [id number] KEVON WELCH Date of : 1940 Start of care: 02/13/2011 Date of onset: 12/24/2010 Referring/Attending Practitioner: Misael Myers MD . Primary/Referral Diagnosis/ICD-9: Encounter Diagnoses Name Primary? 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 ALISE ACOSTA PT [facility] REHABILITATION SERVICES AND HAND THERAPY [address] Mailcode: [address] [address] documented in this encounter Plan [...] + +--------+ + + + | IN PHYS THERAPY | Routin | 02/13/2011 | [...]
--- OUTSIDE RECORDS SUMMARY | ~2018-07-16 | XMS | Encounter Summary ---
Demographics + + + | Address | [address] | | | [place] [address] | + + + | Home Phone [...] [place] | | | | | [address] | | + + + + + Care Team Providers + +------+ + | Care Basket Filler Name | Role | Phone | + [...] | | | | | Procedures | [facility] | Mailcode: | | | | | PHYSICAL | Rd | [facility] | | | | | THERAPY | [place], [place] | for Health | | | | | REFERRAL | [address] | and Healing, | | | | | | Phone: | 1st floor | | | | | | [phone] | [place], [place] | | | | | | Fax: | [address] | | | | | | [phone] | Phone: | | | | | | | [phone] | | | | | | | Fax: | | | | | | | [phone] | +--------+--------+ + + + + Encounter [...] pain; Lumbar | | | | [facility] | [address] | radiculopathy; | | | | [address] | [place], [place] | Herniated lumbar | | | | Mailcode: CH3P | [address] | intervertebral disc; | | | | [facility] | | 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 [id number] KEVON WELCH Date of : 1940 Start of care: 10/09/2011 Date of onset: 09/10/11 Referring/Attending Practitioner: Alcira Bocanegra PA . Primary/Referral Diagnosis/ICD-9: 722.10H Herniated lumbar intervertebral disc Insurance: Payor: ODS MEDICARE Plan: ODS MEDICARE Product Type: PPO Service period from: 10/09/2011 to: 11/08/11 Number visits used/authorized: 4/ Neurologist: Dr. Rafal Benites [facility] [address] [place] [address] (Office) [facility] PHYSICAL THERAPY SUBJECTIVE Age: 71 [...] month ago. He was bending over to sisal picker a garden hose and felt increased [...] Social History: lives with Recreational Activities/Hobbies: plays [email or web address]; reading; does a lot of computer/keyboarding Functional [...] change in their status. LENA RAIN PT [facility] REHABILITATION SERVICES AND HAND THERAPY [address] Mailcode: Ch3[facility], 1st [facility] [address] documented in this e ncounter Plan of Treatment Not on filedocumented as of this encounter Procedures + +--------+ + + + | Procedure Name | Priori | Date/Time | Associated Diagnosis | Comments | | | ty | | | | + +--------+ + + + | [place] THERAPEUTIC | Routin | 10/24/2011 | Shoulder [...]
--- OUTSIDE RECORDS SUMMARY | ~2018-07-16 | XMS | Encounter Summary ---
Demographics + + + | Address | [address] | | | [place] [address] | + + + | Home Phone [...] [place] | | | | | [address] | | + + + + + Care Team Providers + +------+ + | Care Film Composer Name | Role | Phone | + [...] | | | | | THERAPY | [address] | for Health | | | | | REFERRAL | Phone: | and Healing, | | | | | | [phone] | 1st floor | | | | | | Fax: | [place], [place] | | | | | | [phone] | [address] | | | | | | | Phone: | | | | | | | [phone] | | | | | | | Fax: | | | | | | | [phone] | +--------+--------+ + + + + Encounter Details +--------+ + + + + | Date | Type | Department | Care Team | Description | +--------+ + + + + | 05/13/ | Dental Chair Assembler | Orthopaedics at | Katty Chairez PA | Shoulder pain | | 2011 | | [facility] [address] | [address] | (Primary Dx) | | | | Ave Mailcode: CH12A | [place], [place] | | | | | [place] for [facility] | [address] | | | | | and , | [phone] | | | | | Floor [place], [place] | | | | | | [address] | | | | | | [phone] | | | +--------+ + + + [...]
--- OUTSIDE RECORDS SUMMARY | ~2018-07-16 | XMS | Encounter Summary ---
Demographics + + + | Address | [address] | | | [place] [address] | + + + | Home Phone [...] [place] | | | | | [address] | | + + + + + Care Team Providers + +------+ + | Care Sheet Manager Name | Role | Phone | [...] | | | | | THERAPY | [place], [place] | for Health | | | | | REFERRAL | [address] | and Healing, | | | | | | Phone: | 1st floor | | | | | | [phone] | [place], [place] | | | | | | Fax: | [address] | | | | | | [phone] | Phone: | | | | | | | [phone] | | | | | | | Fax: | | | | | | | [phone] | +--------+--------+ + + + + Reason [...] | | | [place], | [place] | [address] | | | | | unspecified | | Phone: | | | | | whether | | [phone] | | | | | generalized | | Fax: | | | | | or | | [phone] | | | | | localized, | [...] | | | | | | | CONSTRUCTION MATERIALS TESTER | | | | | | | [...] pain | | 2011 | Visit | [facility] [address] | [address] | (Primary Dx) | | | | Ave Mailcode: CH12A | [facility], | | | | | [facility] | [place] [address] | | | | | and Healing, | [phone] | | | | | Floor [place], [place] | | | | | | [address] | | | | | | [phone] | | | +--------+---------+ + + + [...]
--- OUTSIDE RECORDS SUMMARY | ~2018-07-16 | XMS | Encounter Summary ---
Demographics + + + | Address | [address] | | | [place] [address] | + + + | Home Phone [...] [place] | | | | | [address] | | + + + + + Care Team Providers + +------+ + | Care Certified Professional Coder Name | Role | Phone | + [...] | [address] | [place], [place] | | | | | Mailcode: CH3P | [address] | | | | | [facility] | | | | | | and Healing, 1st | | | | | | floor [facility] [place] | | | | | | [address] | | | | | | [phone] | | | +--------+---------+ + + + [...] Acosta, PT - 02/13/2011 6:28 PM PST [id number] KEVON WELCH Date of : 1940 Start of care: 02/13/2011 Date of onset: 12/24/2010 Referring/Attending Practitioner: Misael Myers MD . Primary/Referral Diagnosis/ICD-9: Encounter Diagnoses Name Primary? 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 [...] cont with PT closer to home in [facility] Treatment began: 1005 Treatment ended: 1030 This note is to serve as the discharge summary if pt fails to attend further Physical Thera py appointments or contact the therapist regarding any change in their status. ALISE ACOSTA PT [facility] REHABILITATION SERVICES AND HAND THERAPY [address] Mailcode: [address] [address] documented in this encounter Plan [...] + +--------+ + + + | [place] PHYS THERAPY | Routin | 02/13/2011 | [...]
--- OUTSIDE RECORDS SUMMARY | ~2018-07-16 | XMS | Encounter Summary ---
Demographics + + + | Address | [address] | | | [place] [address] | + + + | Home Phone [...] [place] | | | | | [address] | | + + + + + Care Team Providers + +------+ + | Care Wharf Tally Clerk Name | Role | Phone | [...] | | | | | PHYSICAL | [place], [place] | [address] | | | | | THERAPY | [address] | for Health | | | | | REFERRAL | Phone: | and Healing, | | | | | | [phone] | 1st floor | | | | | | Fax: | [place], [place] | | | | | | [phone] | [address] | | | | | | | Phone: | | | | | | | [phone] | | | | | | | Fax: | | | | | | | [phone] | +--------+--------+ + + + + Encounter [...] [facility] | Celestine Carmen | | | | | [address] | [place], [place] | | | | | Mailcode: CH3 | [address] | | | | | [facility] | | | | | | and Ned, 1st | | | | | | floor [place], [place] | | | | | | [address] | | | | | | [phone] | | | +--------+---------+ + + + [...] might be different fr om the original. [id number] KEVON WELCH Date of : 1940 Start of care: 06/30/2011 Date of onset:12/24/10 Referring/Attending Practitioner: Misael Myers MD . Primary/Referral Diagnosis/ICD-9: Encounter Diagnoses Name Primary? Shoulder pain Yes Insurance: Payor: ODS MEDICARE Plan: ODS MEDICARE Product Type: PPO Service period from: 06/30/2011 to: 09/28/11 Number visits used/authorized: 4 [facility] PHYSICAL THERAPY: Pre-op SHOULDER Subjective: Pt is [...] things today History of Presenting Problem: Kevon Wlech is a 70 y.o. male who presents [...] t 24 hours in advance by calling [phone]. Our office is open 7am-6pm and there is a [email or web address] ssage line 24 hours a day. Any [...] change in their status. PHILLY RAIN PT [facility] REHABILITATION SERVICES AND HAND THERAPY [address] Mailcode: [address] [facility], 1st Floor [facility] [address] documented in this e ncounter Plan of Treatment Not on filedocumented as of this encounter Procedures + +--------+ + + + | Procedure Name | Priori | Date/Time | Associated Diagnosis | Comments | | | ty | | | | + +--------+ + + + | DE MANUAL THER | Routin | 06/30/2011 | Shoulder pain | | | TECH,1+REGIONS,EA 15 | e | 4:12 PM | | | | MIN | | PDT | | | + +--------+ + + + | DE THERAPEUTIC | Routin | 06/30/2011 | Shoulder [...]
--- OUTSIDE RECORDS SUMMARY | ~2018-07-16 | XMS | Encounter Summary ---
Demographics + + + | Address | [address] | | | [place] [address] | + + + | Home Phone [...] [place] | | | | | [address] | | + + + + + Care Team Providers + +------+ + | Care Crimper Operator Name | Role | Phone | [...] | | shoulder | Provider Per | [address] | | | | | pain | Patient NO | Celestine Morales | | | | | | REFERRING | [address] [place], | | | | | | PROVIDER PER | [place] | | | | | | PT | [address] | | | | | | | Phone: | | | | | | | [phone] | | | | | | | Fax: | | | | | | | [phone] | +--------+--------+ + + + + Encounter Details +--------+---------+ + + + | Date | Type | Department | Care Team | Description | +--------+---------+ + + + | 03/27/ | Office | Orthopaedics at | Misael Myers MD | Rotator cuff | | 2011 | Visit | [facility] [address] | [address] | tendinitis (Primary | | | | Ave Mailcode: CH12A | [address] | Dx) | | | | [place] for [facility] | [place], [place] | | | | | and [facility], | [address] | | | | | Floor [place], [place] | [phone] | | | | | [address] | | | | | | [phone] | | | +--------+---------+ + + + [...]
--- OUTSIDE RECORDS SUMMARY | ~2018-07-16 | XMS | Encounter Summary ---
Demographics + + + | Address | [address] | | | [place] [address] | + + + | Home Phone [...] [place] | | | | | [address] | | + + + + + Care Team Providers + +------+ + | Care Trucker Name | Role | Phone | + [...] | | | | | REFERRAL | [address] | and Healing, | | | | | | Phone: | 1st floor | | | | | | [phone] | [place], [place] | | | | | | Fax: | [address] | | | | | | [phone] | Phone: | | | | | | | [phone] | | | | | | | Fax: | | | | | | | [phone] | +--------+--------+ + + + + Encounter [...] [facility] | [address] | | | | | [address] | [facility] [place] | | | | | Mailcode: CH3P | [address] | | | | | [facility] | | | | | | and Healing, 1st | | | | | | floor [place], [place] | | | | | | [address] | | | | | | [phone] | | | +--------+---------+ + + + [...] might be different fr om the original. [id number] KEVON WELCH Date of : 1940 Start of care: 07/24/11 Date of onset:07/22/11 Referring/Attending Practitioner: Misael Myers MD . Primary/Referral Diagnosis/ICD-9: Encounter Diagnoses Name Primary? Shoulder pain Yes Insurance: Payor: [email or web address] MEDICARE Plan: ODS MEDICARE Product Type: PPO Service period from: 08/24/11-11/22/11 Number visits used/authorized: 7 [facility] PHYSICAL THERAPY: Post-op SHOULDER PO week S/P Arthroscopic SAD, DCE, labral debridement Subjective: Pt reports that his shoulder pain is mostly resolved Has some residual biceps pain in the anterior shoulder, as well as pain at end range CAN DOFFER AL ROTATION States he has been doing [...] UE improved [facility] still working on mid [...] as 24 hours in advance by calling [phone]. Our office is open 7am-6pm and there is a [employer] ssage line 24 hours a day. Any [...] in their status. LENA RAIN PT [facility] REHABILITATION SERVICES AND HAND THERAPY [address] Mailcode: [address] [facility], [address] [place] [address] documented in this e ncounter Plan [...]
--- OUTSIDE RECORDS SUMMARY | ~2018-07-16 | XMS | Encounter Summary ---
Demographics + + + | Address | [address] | | | [place] [address] | + + + | Home Phone [...] [place] | | | | | [address] | | + + + + + Care Team Providers + +------+ + | Care Livestock Buyer Name | Role | Phone | + [...] | | | | | THERAPY | [address] | for Health | | | | | REFERRAL | Phone: | and Healing, | | | | | | [phone] | 1st floor | | | | | | Fax: | [place], [place] | | | | | | [phone] | [address] | | | | | | | Phone: | | | | | | | [phone] | | | | | | | Fax: | | | | | | | [phone] | +--------+--------+ + + + + Encounter Details +--------+---------+ + + + | Date | Type | Department | Care Team | Description | +--------+---------+ + + + | 08/18/ | Office | [facility] | Lena Rain, | Shoulder pain | | 2011 | Visit | Therapy Services at | PT [address] | (Primary Dx) | | | | [facility] | [address] | | | | | [address] | [place], [place] | | | | | Mailcode: CH3P | [address] | | | | | [facility] | | | | | | and Healing, 1st | | | | | | floor [facility] [place] | | | | | | [address] | | | | | | [phone] | | | +--------+---------+ + + + [...] documented as of this encounter Progress Notes Lnea Rain, PT - 08/19/2011 3:55 PM PDTFormatting of this note might be different fr om the original. [id number] KEVON WELCH Date of : 1940 Start of care: 07/24/11 Date of onset:07/22/11 Referring/Attending Practitioner: Misael Myers MD . Primary/Referral Diagnosis/ICD-9: Encounter Diagnoses Name Primary? Shoulder pain Yes Insurance: Payor: ODS MEDICARE Plan: ODS MEDICARE Product Type: PPO Service period from: 07/24/11-08/23/11 Number visits used/authorized: 3 [facility] PHYSICAL THERAPY: Post-op SHOULDER PO week 4 [...] request that all cancellations be made at [facility] 24 hours in advance by calling [phone]. Our office is open 7am-6pm and there is a [employer] ssage line 24 hours a day. Any [...] change in their status. LENA RAIN PT [facility] REHABILITATION SERVICES AND HAND THERAPY [address] Mailcode: [address] And [facility], [address] [place] [address] documented in this e ncounter Plan of Treatment Not on filedocumented as of this encounter Procedures + +--------+ + + + | Procedure Name | Priori | Date/Time | Associated Diagnosis | Comments | | | ty | | | | + +--------+ + + + | SD MANUAL THER | Routin | 08/20/2011 | Shoulder pain | | | TECH,1+GERHARD,EA 15 | e | 12:40 PM | | | | MIN | | PDT | | | + +--------+ + + + | SD THERAPEUTIC | Routin | 08/20/2011 | Shoulder [...]
--- OUTSIDE RECORDS SUMMARY | ~2018-07-16 | XMS | Encounter Summary ---
Demographics + + + | Address | [address] | | | [place] [address] | + + + | Home Phone [...] [place] | | | | | [address] | | + + + + + Care Team Providers + +------+ + | Care Boat Engine Mechanic Name | Role | Phone | [...] + + | 07/21/ | Telephone | WAMARILYN Sinclair | Maddie Luna, | Other (home pump- | | 2011 | | Pain Center at | DOT COMPLIANCE MANAGER [address] | patient initiated) | | | | [facility] | [place], [place] | | | | | [address] | [address] | | | | | Mail Code: [facility] | [phone] | | | | | [facility] | | | | | | and | | | | | | Floor [place], [place] | | | | | | [address] | | | | | | [phone] | | | +--------+ + + + [...]
--- OUTSIDE RECORDS SUMMARY | ~2018-07-16 | XMS | Encounter Summary ---
Demographics + + + | Address | [address] | | | [place] [address] | + + + | Home Phone [...] [place] | | | | | [address] | | + + + + + Care Team Providers + +------+ + | Care Drawing In Hand Name | Role | Phone | [...] | | | | | PHYSICAL | [facility] [place] | [facility] | | | | | THERAPY | [address] | for Health | | | | | REFERRAL | Phone: | and Healing, | | | | | | [phone] | 1st floor | | | | | | Fax: | [place], [place] | | | | | | [phone] | [address] | | | | | | | Phone: | | | | | | | [phone] | | | | | | | Fax: | | | | | | | [phone] | +--------+--------+ + + + + Encounter [...] | | | [facility] | [address] | | | | | [address] | [place], [place] | | | | | Mailcode: CH3P | [address] | | | | | [facility] | | | | | | and Healing, 1st | | | | | | floor [facility] [place] | | | | | | [address] | | | | | | [phone] | | | +--------+---------+ + + + [...] might be different fr om the original. [id number] KEVON WELCH Date of : 1940 Start [...] request that all cancellations be made at [facility] 24 hours in advance by calling [phone]. Our office is open 7am-6pm and there [...] change in their status. LENA RAIN PT [facility] REHABILITATION SERVICES AND HAND THERAPY [address] Mailcode: [address], 1st [facility] [address] documented in this e ncounter Plan of Treatment Not on filedocumented as of this encounter Procedures + +--------+ + + + | Procedure Name | Priori | Date/Time | Associated Diagnosis | Comments | | | ty | | | | + +--------+ + + + | AR MANUAL THER | Routin | 08/20/2011 | Shoulder pain | | | TECH,1+REGIONS,EA 15 | e | 1:04 PM | | | | MIN | | PDT | | | + +--------+ + + + | AR THERAPEUTIC | Routin | 08/20/2011 | Shoulder [...]
--- OUTSIDE RECORDS SUMMARY | ~2018-07-16 | XMS | Encounter Summary ---
Demographics + + + | Address | [address] | | | [place] [address] | + + + | Home Phone [...] [place] | | | | | [address] | | + + + + + Care Team Providers + +------+ + | Care Stucco Mason Name | Role | Phone | + +------+ + | Zeyad May MD | PCP | | + +------+ + Encounter Details +--------+ + + + + | Date | Type | Department | Care Team | Description | +--------+ + + + + | 04/21/ | Hospital | Radiology/Imaging | Misael Myers MD | | | 2017 | Encounter | Lab at [facility] [address] | [address] | | | | | [address] Mailcode: | [address] | | | | | [facility] | [place], [place] | | | | | Health and [facility], | [address] | | | | | 3rd Floor [place], | [phone] | | | | | [place] [address] | | | | | | [phone] | | | +--------+ + + + [...]
--- OUTSIDE RECORDS SUMMARY | ~2018-07-16 | XMS | Encounter Summary ---
Demographics + + + | Address | [address] | | | [place] [address] | + + + | Home Phone [...] [place] | | | | | [address] | | + + + + + Care Team Providers + +------+ + | Care Tobacco Sizer Name | Role | Phone | + +------+ + | Doyle Johnson MD | PCP | | + +------+ + Encounter Details +--------+ + + + + | Date | Type | Department | Care Team | Description | +--------+ + + + + | 05/19/ | Hospital | Radiology/Imaging | | | | 2013 | Encounter | Lab at [facility] [address] | | | | | | [address] Mailcode: | | | | | | [facility] | | | | | Health and Healing, | | | | | | [address] [place] [address], | | | | | | [place] [address] | | | | | | [phone] | | | +--------+ + + + [...] | | + +---------+ + + | [facility] DEPARTMENT OF | | | | | RADIOLOGY | | | | + +---------+ + + documented in this encounter Visit Diagnoses + + | Diagnosis | + + | Shoulder pain Pain in joint, shoulder region | + + documented in this encounter"
--- OUTSIDE RECORDS SUMMARY | ~2018-07-16 | XMS | Encounter Summary ---
Demographics + + + | Address | [address] | | | [place] [address] | + + + | Home Phone [...] [place] | | | | | [address] | | + + + + + Care Team Providers + +------+ + | Care Non Profit Job Titles Name | Role | Phone | + [...] | | | | | REFERRAL | [address] | and Healing, | | | | | | Phone: | 1st floor | | | | | | [phone] | [place], [place] | | | | | | Fax: | [address] | | | | | | [phone] | Phone: | | | | | | | [phone] | | | | | | | Fax: | | | | | | | [phone] | +--------+--------+ + + + + Encounter Details +--------+---------+ + + + | Date | Type | Department | Care Team | Description | +--------+---------+ + + + | 10/15/ | Office | [facility] | Philly Rain, | Low back pain; | | 2011 | Visit | Therapy Services at | PT [address] | Lumbar | | | | [facility] | [address] | radiculopathy; | | | | [address] | [place], [place] | Herniated lumbar | | | | Mailcode: CH3P | [address] | intervertebral disc; | | | | [place] for [facility] | | Degeneration of | | | | and Healing, 1st | | lumbar | | | | floor [place], [place] | | intervertebral disc | | | | [address] | | | | | | [phone] | | | +--------+---------+ + + + [...] might be different fr om the original. [id number] KEVON WELCH Date of : 1940 Start of care: 10/09/2011 Date of onset: 09/10/11 Referring/Attending Practitioner: Alcira Bocanegra PA . Primary/Referral Diagnosis/ICD-9: 722.10H Herniated lumbar intervertebral disc Insurance: Payor: ODS MEDICARE Plan: ODS MEDICARE Product Type: PPO Service period from: 10/09/2011 to: 11/08/11 Number visits used/authorized: 3/ Neurologist: Dr. Rafal Benites [facility] [address] [place] [address] (Office) [facility] PHYSICAL THERAPY SUBJECTIVE Age: 71 y.o. 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 PHILLY RAIN PT [facility] REHABILITATION SERVICES AND HAND THERAPY [address] Mailcode: [address] Health And [facility], [address] [place] [address] documented in this e ncounter Plan of Treatment Not on filedocumented as of this encounter Procedures + +--------+ + + + | Procedure Name | Priori | Date/Time | Associated Diagnosis | Comments | | | ty | | | | + +--------+ + + + | DC THERAPEUTIC | Routin | 10/16/2011 | Low [...] + | DC THERAPEUTIC | Routin | 10/16/2011 | Low [...]
--- OUTSIDE RECORDS SUMMARY | ~2018-07-16 | XMS | Encounter Summary ---
Demographics + + + | Address | [address] | | | [place] [address] | + + + | Home Phone | | + + + | Preferred Language | Unknown | + + + | Marital Status | | + + + | Mandaen Affiliation | NON | + + + [...] [place] | | | | | [address] | | + + + + + Care Team Providers + +------+ + | Care Cash Specialist Name | Role | Phone | [...] | | | | | PHYSICAL | [facility] [place] | [facility] | | | | | THERAPY | [address] | for Health | | | | | REFERRAL | Phone: | and Healing, | | | | | | [phone] | 1st floor | | | | | | Fax: | [place], [place] | | | | | | [phone] | [address] | | | | | | | Phone: | | | | | | | [phone] | | | | | | | Fax: | | | | | | | [phone] | +--------+--------+ + + + + Encounter Details +--------+ + + + + | Date | Type | Department | Care Team | Description | +--------+ + + + + | 05/13/ | Tire Shop Mechanic | Orthopaedics at | Katty Chairez PA | Shoulder pain | | 2011 | | [facility] [address] | [address] | (Primary Dx) | | | | Ave Mailcode: CH12A | [place], [place] | | | | | [place] for [facility] | [address] | | | | | and , | [phone] | | | | | Floor [place], [place] | | | | | | [address] | | | | | | [phone] | | | +--------+ + + + [...]
--- OUTSIDE RECORDS SUMMARY | ~2018-07-16 | XMS | Encounter Summary ---
Demographics + + + | Address | [address] | | | [place] [address] | + + + | Home Phone [...] [place] | | | | | [address] | | + + + + + Care Team Providers + +------+ + | Care Rn Shift Mgr Name | Role | Phone | + [...] | | | | Thoracic or | [address] | [place], [place] | | | | | lumbosacral | Phone: | [address] | | | | | neuritis or | [phone] | Phone: | | | | | radiculitis, | Fax: | [phone] | | | | | unspecified | [phone] | Fax: | | | | | | | [phone] | | | | | Degeneration | [...] | intervertebral disc; | | | | [facility] | [facility] | Degeneration of | | | | [address] | Road [place], [place] | lumbar | | | | Mailcode: CH3P | [address] | intervertebral disc | | | | [facility] | | | | | | and Ned, 1st | | | | | | floor [place], [place] | | | | | | [address] | | | | | | [phone] | | | +--------+---------+ + + + [...] Dailey, PT - 12/25/2011 8:46 AM PST [id number] KEVON WELCH Date of : 1940 Start of care: 10/09/2011 Date of onset: 09/10/11 Referring/Attending Practitioner: Alcira Bocanegra PA ; Clara Fernandez/Referral Di agnosis/ICD-9: 722.10H Herniated lumbar intervertebral disc Insurance: Payor: ODS MEDICARE Plan: ODS MEDICARE Product Type: PPO Service period from: 12/25/2011 to: 01/23/12 Number visits used/authorized: 6/ Neurologist: Dr. Rafal Benites [facility] [address] [place] [address] (Office) Neurosurgeon: Sen Whitman [address] [place] [address] [facility] PHYSICAL THERAPY SUBJECTIVE Age: 71 [...] month ago. 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 1x/month to accomadate long drive from [place]. Treatment began: 830 Treatment ended: 915 This [...] + | [place] THERAPEUTIC | Routin | 12/25/2011 | Herniated lumbar | | | EXERCISES | e | 9:41 AM | intervertebral disc | | | | | PST | Degeneration of | | | | | | lumbar | | | | | | intervertebral disc | | + +--------+ + + + | MN PHYS THERAPY | Routin | 12/25/2011 | [...]
--- OUTSIDE RECORDS SUMMARY | ~2018-07-16 | XMS | Encounter Summary ---
Demographics + + + | Address | [address] | | | [place] [address] | + + + | Home Phone [...] [place] | | | | | [address] | | + + + + + Care Team Providers + +------+ + | Care Dentist/Owner Name | Role | Phone | + [...] | | | | | | | [address] | | | | | | | [address] | | | | | | | [place], | | | | | | | [place] | | | | | | | [address] | | | | | | | Phone: | | | | | | | [phone] | | | | | | | Fax: | | | | | | | [phone] | +--------+--------+ + + + + Encounter Details +--------+---------+ + + + | Date | Type | Department | Care Team | Description | +--------+---------+ + + + | 04/21/ | Office | Orthopaedics at | Misael Myers MD | Right shoulder pain, | | 2017 | Visit | [facility] [address] | [address] | unspecified | | | | Ave Mailcode: CH12A | [address] | chronicity (Primary | | | | Center for [facility] | [place], [place] | Dx) | | | | and Healing, | [address] | | | | | Floor [place], [place] | [phone] | | | | | [address] | | | | | | [phone] | | | +--------+---------+ + + + [...]
--- OUTSIDE RECORDS SUMMARY | ~2018-07-16 | XMS | Encounter Summary ---
Demographics + + + | Address | [address] | | | [place] [address] | + + + | Home Phone [...] [place] | | | | | [address] | | + + + + + Care Team Providers + +------+ + | Care White Lead Filterer Name | Role | Phone | + [...] | | | | | THERAPY | [place], [place] | for Health | | | | | REFERRAL | [address] | and Healing, | | | | | | | 1st floor | | | | | | | [place], [place] | | | | | | | [address] | | | | | | | Phone: | | | | | | | [phone] | | | | | | | Fax: | | | | | | | [phone] | +--------+--------+ + + + + Encounter [...] | | | | [facility] | [address] | | | | | [address] | [place], [place] | | | | | Mailcode: [facility] | [address] | | | | | [facility] | | | | | | and Healing, 1st | | | | | | floor [place], [place] | | | | | | [address] | | | | | | [phone] | | | +--------+---------+ + + + [...] [place] PT - 10/19/2013 10:15 AM PDT [id number] KEVON WELCH Date of : 1940 Start of care: 05/19/2013 Date of onset: 03/21/2013 Referring/Attending Practitioner: Misael Myers Primary/Referral Diagnosis/ICD-9: Shoulder pain, right (primary encounter diagnosis) Insurance: Payor: [employer] MEDICARE Plan: [employer] MEDICARE Product Type: P PO Service period from: 05/19/2013 to 01/18/2014 Number visits used/authorized: 09/20 [facility] PHYSICAL THERAPY TREATMENT - ORTHO [...] Right 09/22 Right/Left 10/18/2013 Flexion 141 155 [id number]* [id number] Pre 125* Post 140 145 145/150 Abduction 146 150 pcq425* [id number] Pre 95* Post 132 144 140/145 ER [...] home exercise program as pt lives in [facility], [place] for posterior do minant shoulder strength Frequency/Duration: Follow up prn due to pt living in [facility], [place] Treatment began: 1015 am Treatment ended: 1100 am This note is to serve as the discharge summary if Kevon fails to attend further Physical Th erapy appointments or contact the therapist regarding any change in their status. Alise [place], PT [facility] THERAP[facility] [address] Mailcode: [place] [address] documented in this encounter Plan of Treatment Not on filedocumented as of this encounter Procedures + +--------+ + + + | Procedure Name | Priori | Date/Time | Associated Diagnosis | Comments | | | ty | | | | + +--------+ + + + | PA MANUAL THER | Routin | 10/19/2013 | Shoulder pain, | | | TECH,1+REGIONS,EA 15 | e | 12:14 PM | right | | | MIN | | PDT | | | + +--------+ + + + | PA THERAPEUTIC | Routin | 10/19/2013 | Shoulder [...]
--- OUTSIDE RECORDS SUMMARY | ~2018-07-16 | XMS | Encounter Summary ---
Demographics + + + | Address | [address] | | | [place] [address] | + + + | Home Phone [...] [place] | | | | | [address] | | + + + + + Care Team Providers + +------+ + | Care Costume Seamstress Name | Role | Phone | [...] | | | | REFERRING | Dejan [place], | | | | | | PROVIDER PER | [place] | | | | | | [place] | [address] | | | | | | | Phone: | | | | | | | [phone] | | | | | | | Fax: | | | | | | | [phone] | +--------+--------+ + + + + Encounter Details +--------+---------+ + + + | Date | Type | Department | Care Team | Description | +--------+---------+ + + + | 06/29/ | Office | Preoperative | Lida Houser, | Shoulder pain | | 2011 | Visit | Medicine Clinic at | ANP [address] | (Primary Dx); Other | | | | [facility] 4th Floor [address] | specified | | | | [address] | [place], [place] | pre-operative | | | | Code: [facility] | [address] | examination; NELY | | | | for Health and | [phone] | (obstructive sleep | | | | Healing,4th Floor | | apnea) | | | | [place], [place] | | | | | | [address] | | | | | | [phone] | | | +--------+---------+ + + + [...] perfume, lotions or powder. Remove any nail cymro from at least one fingernail. Do not [...] Time: Someone from your surgeon's office or [facility] will provide you with information [...] it is after office hours, call the [facility] nitric acid concentrator operator at [phone] and ask them to page your doc [...] patient. Document will be s canned in [place]. Current Medication List Name Sig IBUPROFEN 200 [...] further investigation and manageme nt. A. Acute WA within 7 days: no B. Unstable angina/Recent WA (7- 30 days): no C. Decompensated CHF: [...] no Rate of cardiac , non fatal WA, non fatal cardiac arrest 0 risk factors [...] contribute to this patient's care. BRADFORD ALVES [facility] [address] [place] [address] [place] [address] Marilin Vang MA - 06/30/2011 2:19 PM PDT Nerve Block Home Pump Education: Total time spent during clinic visit in patient education 15 minutes. [facility] Department of Anesthesia, Regional Anesthesia patient [...] | + +--------+ + + + | MO COLLECTION VENOUS | Routin | 06/30/2011 | [...] view image for the detailed interpretation from [employer] results. | CARDIOLOGY | + + + + + + + + | Performing | Address | City/State/Zipcode | Phone Number | | Organization | | | | + + + + + | [facility] DEPT OF | [address] | [place], [place] | | | CARDIOLOGY | [address] | [address] | | + + + + + [...] | + + + + + | [facility] DEPARTMENT OF | [address] | [place] [address] | | | PATHOLOGY | [address] [...]
--- OUTSIDE RECORDS SUMMARY | ~2018-07-16 | XMS | Encounter Summary ---
Demographics + + + | Address | [address] | | | [place] [address] | + + + | Home Phone [...] [place] | | | | | [address] | | + + + + + Care Team Providers + +------+ + | Care Director Of Grants Name | Role | Phone | + [...] | | | | | THERAPY | [address] | for Health | | | | | REFERRAL | Phone: | and Healing, | | | | | | [phone] | 1st floor | | | | | | Fax: | [place], [place] | | | | | | [phone] | [address] | | | | | | | Phone: | | | | | | | [phone] | | | | | | | Fax: | | | | | | | [phone] | +--------+--------+ + + + + Encounter [...] [facility] | [address] | | | | | [address] | [place], [place] | | | | | Mailcode: CH3P | [address] | | | | | [facility] | | | | | | and Healing, 1st | | | | | | floor [facility] [place] | | | | | | [address] | | | | | | [phone] | | | +--------+---------+ + + + [...] PDTFormatting of this note might be different [facility] the original. [id number] KEVON WELCH Date of : 1940 Start of care: 02/13/2011 Date of onset: 12/24/2010 Referring/Attending Practitioner: Misael Myers MD . Primary/Referral Diagnosis/ICD-9: Encounter Diagnoses Name Primary? Shoulder pain Yes Insurance: Payor: [employer] MEDICARE Plan: ODS MEDICARE Product Type: PPO Service period from: 03/13/11-06/11/11 Number visits used/authorized: 02/09 [facility] PHYSICAL THERAPY: SHOULDER SUBJECTIVE: Pt [...] no longer undergoing PT at clinic in [place] [address] [facility] here; has been seen [...] change in their status. PHILLY RAIN, PT [facility] REHABILITATION SERVICES AND HAND THERAPY [address] Mailcode: [facility] [place], 1st [facility] [address] Philly Killian PT - 05/12/2011 9:14 AM PDT 04/28/11 PT Encounter Note: Kevon Welch 70 yrs, Male, 1940 PCP: DOYLE JOHNSON Ref: NO REFERRING PROVIDER PER PATIENT, Primary Ins.: ODS MEDI Pt seen briefly in [facility] by PT per Dr. Acevedo request: Not charged S: Pt undergoing PT at clinic in [place] 200 [place] from here; has been seen [...] modify RX as appropriate PHILLY RAIN PT [facility] [address] Mailcode: Ch12a [facility], 12th [facility] [address] + NEERS. + Telles, + Hornblowers [...] + | [place] THERAPEUTIC | Routin | 05/15/2011 | Shoulder [...]
--- OUTSIDE RECORDS SUMMARY | ~2018-07-16 | XMS | Encounter Summary ---
Demographics + + + | Address | [address] | | | [place] [address] | + + + | Home Phone [...] [place] | | | | | [address] | | + + + + + Care Team Providers + +------+ + | Care Legal Specialist Name | Role | Phone | [...] | | | [facility] | [address] | | | | | [address] | [place], [place] | | | | | Mailcode: CH3P | [address] | | | | | [facility] | | | | | | and Healing, 1st | | | | | | floor [place], [place] | | | | | | [address] | | | | | | [phone] | | | +--------+---------+ + + + [...] [place], PT - 09/22/2013 9:46 AM PDT [id number] KEVON WELCH Date of : 1940 Start of care: 05/19/2013 Date of onset: 03/21/2013 Referring/Attending Practitioner: Misael Myers Primary/Referral Diagnosis/ICD-9: Shoulder pain, right (primary encounter diagnosis) Insurance: Payor: [employer] MEDICARE Plan: [employer] MEDICARE Product Type: P PO Service period from: 05/19/2013 to 01/18/2014 Number visits used/authorized: 08/20 [facility] PHYSICAL THERAPY TREATMENT - ORTHO [...] Right 08/11/2013 Right 09/22/2013 Flexion 141 155 [id number]* fryw128 Pre 125* Post 140 145 Abduction 146 150 qpj342* [id number] Pre 95* Post 132 144 ER at [...] living in [facility] [place] Treatment began: 946 am Treatment ended: 1031 am This note is to serve as the discharge summary if Kevon fails to attend further Physical Th erapy appointments or contact the therapist regarding any change in their status. Alise [place], PT [facility]ERAP[facility] [address] Mailcode: [address] [address] documented in this encounter Plan of Treatment Not on filedocumented as of this encounter Procedures + +--------+ + + + | Procedure Name | Priori | Date/Time | Associated Diagnosis | Comments | | | ty | | | | + +--------+ + + + | [place] MANUAL THER | Routin | 09/22/2013 | Shoulder pain, | | | TECH,1+REGIONS,EA 15 | e | 12:19 PM | right | | | MIN | | PDT | | | + +--------+ + + + | [place] THERAPEUTIC | Routin | 09/22/2013 | Shoulder [...]
--- OUTSIDE RECORDS SUMMARY | ~2018-07-16 | XMS | Encounter Summary ---
Demographics + + + | Address | [address] | | | [place] [address] | + + + | Home Phone [...] [place] | | | | | [address] | | + + + + + Care Team Providers + +------+ + | Care Timber Hand Name | Role | Phone | [...] | [facility] | [address] | | | | | [address] | [place], [place] | | | | | Mailcode: CH3P | [address] | | | | | [facility] | | | | | | and Healing, 1st | | | | | | floor [place], [place] | | | | | | [address] | | | | | | [phone] | | | +--------+---------+ + + + [...] [place], PT - 09/22/2013 9:46 AM PDT [id number] KEVON WELCH Date of : 1940 Start of care: 05/19/2013 Date of onset: 03/21/2013 Referring/Attending Practitioner: Misael Myers Primary/Referral Diagnosis/ICD-9: Shoulder pain, right (primary encounter diagnosis) Insurance: Payor: [employer] MEDICARE Plan: [employer] MED[employer] Product Type: P PO Service period from: 05/19/2013 to 01/18/2014 Number visits used/authorized: 08/20 [facility] PHYSICAL THERAPY TREATMENT - ORTHO [...] Right 08/11/2013 Right 09/22/2013 Flexion 141 155 [id number]* [id number] Pre 125* Post 140 145 Abduction 146 150 bac271* grjy472 Pre 95* Post 132 144 ER at [...] pt living in [facility], [place], [place] Treatment began: 946 am Treatment ended: 1031 am This note is to serve as the discharge summary if Kevon fails to attend further Physical Th erapy appointments or contact the therapist regarding any change in their status. Alise [place], PT [facility] REHABIL[facility]ATION SERVICES AND HAND THERAPY [address] Mailcode: [address] [address] documented in this encounter Plan of Treatment Not on filedocumented as of this encounter Procedures + +--------+ + + + | Procedure Name | Priori | Date/Time | Associated Diagnosis | Comments | | | ty | | | | + +--------+ + + + | [place] MANUAL THER | Routin | 09/22/2013 | Shoulder pain, | | | TECH,1+REGIONS,EA 15 | e | 12:19 PM | right | | | MIN | | PDT | | | + +--------+ + + + | [place] THERAPEUTIC | Routin | 09/22/2013 | Shoulder [...]
--- OUTSIDE RECORDS SUMMARY | ~2018-07-16 | XMS | Encounter Summary ---
Demographics + + + | Address | [address] | | | [place] [address] | + + + | Home Phone [...] [place] | | | | | [address] | | + + + + + Care Team Providers + +------+ + | Care Production Mechanic Tin Cans Name | Role | Phone | + [...] | | | | | THERAPY | [place], [place] | for Health | | | | | REFERRAL | [address] | and Healing, | | | | | | Phone: | 1st floor | | | | | | [phone] | [place], [place] | | | | | | Fax: | [address] | | | | | | [phone] | Phone: | | | | | | | [phone] | | | | | | | Fax: | | | | | | | [phone] | +--------+--------+ + + + + Reason [...] | | | [place], | [place] | [address] | | | | | unspecified | | Phone: | | | | | whether | | [phone] | | | | | generalized | | Fax: | | | | | or | | [phone] | | | | | localized, | [...] | | | | | | | [facility] | | | | | | | MO SHLDR | | | | | | | ARTHROSCOP,P | | | | | | | ART | | | | | | | ACROMIOPLAS | | | | | | | W/CORACOACRO | | | | | | | M MO SHLDR | | | | | | | ARTHROSCOP,S | | | | | | | URG,DIS | | | | | | | CLAVICULECTO | | | | | | | MY MO | | | | | | [...] pain | | 2011 | Visit | [facility] [address] | [address] | (Primary Dx) | | | | Ave Mailcode: CH12A | [facility], | | | | | [facility] | [place] [address] | | | | | and Healing, | [phone] | | | | | Floor [place], [place] | | | | | | [address] | | | | | | [phone] | | | +--------+---------+ + + + [...]
--- OUTSIDE RECORDS SUMMARY | ~2018-07-16 | XMS | Encounter Summary ---
Demographics + + + | Address | [address] | | | [place] [address] | + + + | Home Phone [...] [place] | | | | | [address] | | + + + + + Care Team Providers + +------+ + | Care Control Chemist Name | Role | Phone | + [...] | | | | Procedures | [facility] | Mailcode: | | | | | PHYSICAL | Rd | [facility] | | | | | THERAPY | [place], [place] | for Health | | | | | REFERRAL | [address] | and Healing, | | | | | | | 1st floor | | | | | | | [place], [place] | | | | | | | [address] | | | | | | | Phone: | | | | | | | [phone] | | | | | | | Fax: | | | | | | | [phone] | +--------+--------+ + + + + Encounter [...] | | | [address] | [place], [place] | | | | | Mailcode: [facility] | [address] | | | | | [facility] | | | | | | and Healing, 1st | | | | | | floor [place], [place] | | | | | | [address] | | | | | | [phone] | | | +--------+---------+ + + + [...] [place], PT - 11/16/2013 11:25 AM PDT [id number] KEVON WELCH Date of : 1940 Start of care: 05/19/2013 Date of onset: 03/21/2013 Referring/Attending Practitioner: Misael Myers Primary/Referral Diagnosis/ICD-9: Shoulder pain, right (primary encounter diagnosis) Insurance: Payor: [employer] MEDICARE Plan: [employer] MEDICARE Product Type: P PO Service period [...] Right 09/22 Right/Left 10/18/2013 Flexion 141 155 [id number]* [email or web address] Pre 125* Post 140 145 145/150 Abduction 146 150 xjz597* nquw682 Pre 95* Post 132 144 140/145 ER [...] home exercise program as pt lives in [place], [place] for posterior do minant shoulder strength Frequency/Duration: Follow up prn due to pt living in [facility], [place] Treatment began: 1125 am Treatment ended: 1210 pm This note is to serve as the discharge summary if Kevon fails to attend further Physical Th erapy appointments or contact the therapist regarding any change in their status. Alise [place], PT [facility]IL[facility] SERVICES AND HAND THERAPY [address] Mailcode: [place] [address] documented in this encounter Plan [...]
--- OUTSIDE RECORDS SUMMARY | ~2018-07-16 | XMS | Encounter Summary ---
Demographics + + + | Address | [address] | | | [place] [address] | + + + | Home Phone [...] [place] | | | | | [address] | | + + + + + Care Team Providers + +------+ + | Care Motor Vehicle Technician Name | Role | Phone | [...] | | | | | THERAPY | [address] | for Health | | | | | REFERRAL | Phone: | and Healing, | | | | | | [phone] | 1st floor | | | | | | Fax: | [place], [place] | | | | | | [phone] | [address] | | | | | | | Phone: | | | | | | | [phone] | | | | | | | Fax: | | | | | | | [phone] | +--------+--------+ + + + + Encounter Details +--------+---------+ + + + | Date | Type | Department | Care Team | Description | +--------+---------+ + + + | 05/11/ | Office | [facility] Physical | Philly Rain, | Shoulder pain | | 2011 | Visit | Therapy Services at | PT [address] | (Primary Dx) | | | | [facility] | [address] | | | | | [address] | [place], [place] | | | | | Mailcode: CH3P | [address] | | | | | [facility] | | | | | | and Healing, 1st | | | | | | floor [facility] [place] | | | | | | [address] | | | | | | [phone] | | | +--------+---------+ + + + [...] PDTFormatting of this note might be different [facility] the original. [id number] KEVON WELCH Date of : 1940 Start of care: 02/13/2011 Date of onset: 12/24/2010 Referring/Attending Practitioner: Misael Myers MD . Primary/Referral Diagnosis/ICD-9: Encounter Diagnoses Name Primary? 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 PHILLY RAIN, PT [facility] HAND THERAP[facility] [address] Mailcode: [facility], [address] [facility] [address] Philly Killian PT - 05/12/2011 9:14 AM PDT 04/28/11 PT Encounter Note: Kevon Welch 70 yrs, Male, 1940 PCP: DOYLE JOHNSON Ref: NO REFERRING PROVIDER PER PATIENT, Primary Ins.: ODS MEDI Pt seen briefly in [facility] by PT per Dr. Acevedo request: Not charged S: Pt undergoing PT at clinic in [place] from here; has been seen [...] modify RX as appropriate PHILLY RAIN PT [facility] [address] Mailcode: Ch12a [facility], [address] [facility] [address] + NEERS. + Telles, + [...]
--- OUTSIDE RECORDS SUMMARY | ~2018-07-16 | XMS | Encounter Summary ---
Demographics + + + | Address | [address] | | | [place] [address] | + + + | Home Phone [...] [place] | | | | | [address] | | + + + + + Care Team Providers + +------+ + | Care Water Valve Repairer Name | Role | Phone | + +------+ + | Doyle Johnson MD | PCP | | + +------+ + Encounter Details +--------+ + + + + | Date | Type | Department | Care Team | Description | +--------+ + + + + | 05/19/ | Hospital | Radiology/Imaging | | | | 2013 | Encounter | Lab at [facility] [address] | | | [address] Mailcode: | | | | | | [facility] | | | | | | Health and Healing, | | | | | | [address] [place] [address], | | | | | | [place] [address] | | | | | | [phone] | | | +--------+ + + + [...] | | + +---------+ + + | [facility] DEPARTMENT OF | | | | | RADIOLOGY | | | | + +---------+ + + documented in this encounter Visit Diagnoses + + | Diagnosis | + + | Shoulder pain Pain in joint, shoulder region | + + documented in this encounter"
--- OUTSIDE RECORDS SUMMARY | ~2018-07-16 | XMS | Encounter Summary ---
Demographics + + + | Address | [address] | | | [place] [address] | + + + | Home Phone [...] [place] | | | | | [address] | | + + + + + Care Team Providers + +------+ + | Care Ambulatory Nurse Name | Role | Phone | [...] | | | | | PHYSICAL | [facility] [place] | [facility] | | | | | THERAPY | [address] | for Health | | | | | REFERRAL | Phone: | and Healing, | | | | | | [phone] | 1st floor | | | | | | Fax: | [place], [place] | | | | | | [phone] | [address] | | | | | | | Phone: | | | | | | | [phone] | | | | | | | Fax: | | | | | | | [phone] | +--------+--------+ + + + + Encounter [...] | | | | [facility] | [address] | | | | | [address] | [place], [place] | | | | | Mailcode: CH3P | [address] | | | | | [facility] | | | | | | and Healing, 1st | | | | | | floor [facility] [place] | | | | | | [address] | | | | | | [phone] | | | +--------+---------+ + + + [...] might be different fr om the original. [id number] KEVON WELCH Date of : 1940 Start [...] request that all cancellations be made at [facility] 24 hours in advance by calling [phone]. Our office is open 7am-6pm and there [...] their status. LENA RAIN PT [facility]IL[facility] HAND THERAPY [address] Mailcode: [address], [address]st [facility] [address] documented in this e ncounter Plan of Treatment Not on filedocumented as of this encounter Procedures + +--------+ + + + | Procedure Name | Priori | Date/Time | Associated Diagnosis | Comments | | | ty | | | | + +--------+ + + + | [place] MANUAL THER | Routin | 08/20/2011 | Shoulder pain | | | TECH,1+REGIONS,EA 15 | e | 1:04 PM | | | | MIN | | PDT | | | + +--------+ + + + | [place] THERAPEUTIC | Routin | 08/20/2011 | Shoulder [...]
--- OUTSIDE RECORDS SUMMARY | ~2018-07-16 | XMS | Encounter Summary ---
Demographics + + + | Address | [address] | | | [place] [address] | + + + | Home Phone [...] [place] | | | | | [address] | | + + + + + Care Team Providers + +------+ + | Care Unit Technician Name | Role | Phone | [...] | | shoulder | Provider Per | [address] | | | | | pain | Patient NO | [address] | | | | | | REFERRING | Dejan Onofre | | | | | | PROVIDER PER | [place] | | | | | | [place] | [address] | | | | | | | Phone: | | | | | | | [phone] | | | | | | | Fax: | | | | | | | [phone] | +--------+--------+ + + + + Encounter Details +--------+---------+ + + + | Date | Type | Department | Care Team | Description | +--------+---------+ + + + | 02/13/ | Office | Orthopaedics at | Misael Myers MD | Shoulder pain; | | 2011 | Visit | [facility] [address] | [address] [facility] | Rotator cuff | | | | [address] Mailcode: CH12A | [address] | tendinitis; | | | | Center for Health | [facility] [place] | Disorders of bursae | | | | and Healing, | [address] | and tendons in | | | | Floor [facility] [place] | [phone] | shoulder region, | | | | [address] | | unspecified | | | | [phone] | | | +--------+---------+ + + + [...] Speed's biceps test was ne gative. and Montrose's test was positive. The patient had normal [...]
--- OUTSIDE RECORDS SUMMARY | ~2018-07-16 | XMS | Encounter Summary ---
Demographics + + + | Address | [address] | | | [place] [address] | + + + | Home Phone [...] [place] | | | | | [address] | | + + + + + Care Team Providers + +------+ + | Care Auctioneer Art Name | Role | Phone | + +------+ + | Doyle Johnson MD | PCP | | + +------+ + Encounter Details +--------+ + + + + | Date | Type | Department | Care Team | Description | +--------+ + + + + | 05/19/ | Hospital | Radiology/Imaging | | | | 2013 | Encounter | Lab at [facility] [address] | | | | | | [address] Mailcode: | | | | | | [facility] | | | | | | Health and Healing, | | | | | | [address] [place] [address], | | | | | | [place] [address] | | | | | | [phone] | | | +--------+ + + + [...]
--- OUTSIDE RECORDS SUMMARY | ~2018-07-16 | XMS | Encounter Summary ---
Demographics + + + | Address | [address] | | | [place] [address] | + + + | Home Phone [...] [place] | | | | | [address] | | + + + + + Care Team Providers + +------+ + | Care Landfill Gas Plant Field Technician Name | Role | Phone | [...] | | | | | Procedures | [facility] | Mailcode: | | | | | PHYSICAL | Rd | [facility] | | | | | THERAPY | [place], [place] | for Health | | | | | REFERRAL | [address] | and Healing, | | | | | | | 1st floor | | | | | | | [place], [place] | | | | | | | [address] | | | | | | | Phone: | | | | | | | [phone] | | | | | | | Fax: | | | | | | | [phone] | +--------+--------+ + + + + Encounter Details +--------+---------+ + + + | Date | Type | Department | Care Team | Description | +--------+---------+ + + + | 08/18/ | Office | [place] Physical | Rupesh, | Shoulder pain, right | | 2013 | Visit | Therapy Services at | Alise, PT [address] | (Primary Dx) | | | | [facility] | [address] | | | | | [address] | [place], [place] | | | | | Mailcode: [facility] | [address] | | | | | [facility] | | | | | | and Healing, 1st | | | | | | floor [place], [place] | | | | | | [address] | | | | | | [phone] | | | +--------+---------+ + + + [...] might be different from the o prabhainal. [id number] KEVON WELCH Date of : 1940 Start of care: 05/19/2013 Date of onset: 03/21/2013 Referring/Attending Practitioner: Misael Myers Primary/Referral Diagnosis/ICD-9: Shoulder pain, right (primary encounter diagnosis) Insurance: Payor: [employer] MEDICARE Plan: [employer] MEDICARE Product Type: P PO Service period from: 05/19/2013 to 01/18/2014 Number visits used/authorized: 06/20 [facility] PHYSICAL THERAPY TREATMENT - ORTHO SUBJECTIVE: Current: Right shoulder range of motion and pain are improved by stretches but doesn't seem to last and has similar function overall. Difficulty lifting arm overhead. History of Presenting Problem: Keovn Welch is a 72 y.o. male who [...] Right 07/20/2013 Right 08/11/2013 Flexion 141 155 qtc262* tbfj443 Pre 125* Post 140 Abduction 146 150 eqr464* kinx865 Pre 95* Post 132 ER at 90 [...] exercise program as pt lives in [facility], [place] for posterior do minant shoulder strength Frequency/Duration: Follow up prn due to pt living in [facility], [place] Treatment began: 1031 am Treatment ended: [...] in the student's note. Alise [place], PT [facility] REHABILITATION SERVICES AND HAND THERAPY [address] Mailcode: [place] [address] documented in this encounter Plan of Treatment Not on filedocumented as of this encounter Procedures + +--------+ + + + | Procedure Name | Priori | Date/Time | Associated Diagnosis | Comments | | | ty | | | | + +--------+ + + + | NE MANUAL THER | Routin | 08/18/2013 | Shoulder pain, | | | TECH,1+REGIONS,EA 15 | e | 6:01 PM | right | | | MIN | | PDT | | | + +--------+ + + + | NE THERAPEUTIC | Routin | 08/18/2013 | Shoulder [...]
--- OUTSIDE RECORDS SUMMARY | ~2018-07-16 | XMS | Encounter Summary ---
Demographics + + + | Address | [address] | | | [place] [address] | + + + | Home Phone [...] [place] | | | | | [address] | | + + + + + Care Team Providers + +------+ + | Care Garment Mender Name | Role | Phone | + [...] | follow up) | | | | [facility] | | | | | | [address] | | | | | | Mail Code: CH15P | | | | | | [facility] | | | | | | and Healing, | | | | | | Floor [place], [place] | | | | | | [address] | | | | | | [phone] | | | +--------+ + + + [...]
--- OUTSIDE RECORDS SUMMARY | ~2018-07-16 | XMS | Encounter Summary ---
Demographics + + + | Address | [address] | | | [place] [address] | + + + | Home Phone [...] [place] | | | | | [address] | | + + + + + Care Team Providers + +------+ + | Care Supervisor Laundry Name | Role | Phone | + [...] | | | | | PHYSICAL | [place], [place] | [address] | | | | | THERAPY | [address] | for Health | | | | | REFERRAL | Phone: | and Healing, | | | | | | [phone] | 1st floor | | | | | | Fax: | [place], [place] | | | | | | [phone] | [address] | | | | | | | Phone: | | | | | | | [phone] | | | | | | | Fax: | | | | | | | [phone] | +--------+--------+ + + + + Encounter [...] | | | | [facility] | [address]en | | | | | [address] | [place], [place] | | | | | Mailcode: CH3 | [address] | | | | | [facility] | | | | | | and Ned, 1st | | | | | | floor [place], [place] | | | | | | [address] | | | | | | [phone] | | | +--------+---------+ + + + [...] might be different fr om the original. [id number] KEVON WELCH Date of : 1940 Start of care: 07/24/11 Date of onset:07/22/11 Referring/Attending Practitioner: Misael Myers MD . Primary/Referral Diagnosis/ICD-9: Encounter Diagnoses Name Primary? Shoulder pain Yes Insurance: Payor: [employer]DS MEDICARE Plan: [employer]DS MEDICARE Product Type: PPO Service period from: 07/24/11-08/23/11 Number visits used/authorized: 1 [facility] PHYSICAL THERAPY: Post-op SHOULDER POST OP [...] hospital 24 hours in advance by calling [phone]. Our office is open 7am-6pm and there is a [employer] ssage line 24 hours a day. Any [...] change in their status. PHILLY RAIN PT [facility] REHABIL[facility]ATION SERVICES AND HAND THERAPY [address] Mailcode: [address] And [facility], [address] [place] [address] documented in this e ncounter Plan [...] + | NC THERAPEUTIC | Routin | 07/24/2011 | Shoulder pain | | | ACTIVITIES | e | 4:38 PM | | | | | | PDT | | | + +--------+ + + + | NC THERAPEUTIC | Routin | 07/24/2011 | Shoulder pain | | | EXERCISES | e | 4:38 PM | | | | | | PDT | | | + +--------+ + + + | NC PHYS THERAPY | Routin | 07/24/2011 | [...]
--- OUTSIDE RECORDS SUMMARY | ~2018-07-16 | XMS | Encounter Summary ---
Demographics + + + | Address | [address] | | | [place] [address] | + + + | Home Phone [...] [place] | | | | | [address] | | + + + + + Care Team Providers + +------+ + | Care Early Head Start Teacher Name | Role | Phone | [...] | | | | | | Dejan [place], | | | | | | | [place] | | | | | | | [address] | | | | | | | Phone: | | | | | | | [phone] | | | | | | | Fax: | | | | | | | [phone] | +--------+--------+ + + + + Encounter [...] (Primary | | | | Center for [facility] | [place], [place] | Dx) | | | | and Healing, | [address] | | | | | Floor [place], [place] | [phone] | | | | | [address] | | | | | | [phone] | | | +--------+---------+ + + + [...]
--- OUTSIDE RECORDS SUMMARY | ~2018-07-16 | XMS | Encounter Summary ---
Demographics + + + | Address | [address] | | | [place] [address] | + + + | Home Phone [...] [place] | | | | | [address] | | + + + + + Care Team Providers + +------+ + | Care Automobile Wrecker Name | Role | Phone | + [...] | | | 2011 | Event | [facility] | [employer] [address] | | | | | and Healing Surgery | [facility] | | | | | Center Admitting | [place], [place] | | | | | Desk Located on the | [address] | | | | | 4th floor [address] | [phone] | | | | | [address] [place], | | | | | | [place] [address] | | | +--------+ + + + [...] nerve | Cannot be | | block ([facility], Single, I-Flow pump) | calculated | + [...]
--- OUTSIDE RECORDS SUMMARY | ~2018-07-16 | XMS | Encounter Summary ---
Demographics + + + | Address | [address] | | | [place] [address] | + + + | Home Phone [...] [place] | | | | | [address] | | + + + + + Care Team Providers + +------+ + | Care Hotel Lobby Concierge Name | Role | Phone | + [...] | | shoulder | Provider Per | [address] | | | | | pain | Patient NO | [address] | | | | | | REFERRING | Rd [place], | | | | | | PROVIDER PER | [place] | | | | | | PT | [address] | | | | | | | Phone: | | | | | | | [phone] | | | | | | | Fax: | | | | | | | [phone] | +--------+--------+ + + + + Encounter Details +--------+---------+ + + + | Date | Type | Department | Care Team | Description | +--------+---------+ + + + | 04/27/ | Office | Orthopaedics at | Misael Myers MD | Shoulder pain | | 2011 | Visit | [facility] [address] | [address] | (Primary Dx); | | | | Ave Mailcode: CH12A | [address] | Rotator cuff | | | | [facility] | [place], [place] | tendinitis; | | | | and | [address] | Osteoarthrosis, | | | | Floor [place], [place] | [phone] | unspecified whether | | | | [address] | | generalized or | | | | [phone] | | localized, shoulder | | | [...] S: Pt undergoing PT at clinic in [place] 200 miles from here; has been seen [...] RX as appropriate LENA RAIN PT [facility] [address] Mailcode: Ch12a [facility] And [facility], [address] [place] [address] Misael Vega MD - 04/28/2011 11:09 [...]
--- OUTSIDE RECORDS SUMMARY | ~2018-07-16 | XMS | Encounter Summary ---
Demographics + + + | Address | [address] | | | [place] [address] | + + + | Home Phone [...] [place] | | | | | [address] | | + + + + + Care Team Providers + +------+ + | Care Flag Maker Name | Role | Phone | [...] | intervertebral disc | | | | [facility] | [facility] | (Primary Dx) | | | | [address] | Road [place], [place] | | | | | Mailcode: [facility] | [address] | | | | | [facility] | | | | | | and Healing, [facility] | | | | | | floor [place], [place] | | | | | | [address] | | | | | | [phone] | | | +--------+---------+ + + + [...] Dailey, PT - 10/10/2011 1:41 PM PDT [id number] KEVON WELCH Date of : 1940 Start of care: 10/09/2011 Date of onset: 09/10/11 Referring/Attending Practitioner: Alcira Bocanegra PA . Primary/Referral Diagnosis/ICD-9: 722.10H Herniated lumbar intervertebral disc Insurance: Payor: [employer] MEDICARE Plan: [employer]DS MEDICARE Product Type: PPO Service period from: 10/09/2011 to: 11/08/11 Number visits used/authorized: 1/ Neurologist: Dr. Rafal Benites [address] [address] (Office) [facility] PHYSICAL THERAPY SUBJECTIVE Age: 71 y.o. Sex: male Chief complaint: Today's report: 03/21. Walking. Foot drop. 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 No lying on stomach since 8 years o ld due to back pain History of Presenting Problems: Kevon Welch is a 71 y.o. male with c/o LBP that began about a month ago. He was bending over to oyster picker a garden hose and felt increased [...] + | [place] THERAPEUTIC | Routin | 10/10/2011 | Herniated [...]
--- OUTSIDE RECORDS SUMMARY | ~2018-07-16 | XMS | Encounter Summary ---
Demographics + + + | Address | [address] | | | [place] [address] | + + + | Home Phone [...] [place] | | | | | [address] | | + + + + + Care Team Providers + +------+ + | Care Scoop Machine Operator Name | Role | Phone [...] | | | | | THERAPY | [place], [place] | for Health | | | | | REFERRAL | [address] | and Healing, | | | | | | | 1st floor | | | | | | | [place], [place] | | | | | | | [address] | | | | | | | Phone: | | | | | | | [phone] | | | | | | | Fax: | | | | | | | [phone] | +--------+--------+ + + + + Encounter [...] | | | [address] | [place], [place] | | | | | Mailcode: [facility] | [address] | | | | | [facility] | | | | | | and Healing, 1st | | | | | | floor [place], [place] | | | | | | [address] | | | | | | [phone] | | | +--------+---------+ + + + [...] [place], PT - 01/18/2014 10:57 AM PST [id number] KEVON WELCH Date of : 1940 Start of care: 05/19/2013 Date of onset: 03/21/2013 Referring/Attending Practitioner: Misael Myers Primary/Referral Diagnosis/ICD-9: Shoulder pain, right (primary encounter diagnosis) Insurance: Payor: [employer] MEDICARE Plan: [employer] MEDICARE Product Type: P PO Service period from: 05/19/2013 to 01/18/2014 Number visits used/authorized: 11/20 [facility] PHYSICAL THERAPY TREATMENT - [...] Right/Left 10/18/2013 Right 01/18/2014 Flexion 141 155 kid674* hear862 Pre 125* Post 140 145 145/150 156 Abduction 146 150 fff246* vjtj556 Pre 95* Post 132 144 140/145 150 [...] end of session. 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 Pt will be discharged to [facility] t home exercise program at this time. [...] change in their status. Alise [place], PT [facility] REHABILITATION SERVICES AND HAND THERAPY [address] Mailcode: [place] [address] documented in this encounter Plan of Treatment Not on filedocumented as of this encounter Procedures + +--------+ + + + | Procedure Name | Priori | Date/Time | Associated Diagnosis | Comments | | | ty | | | | + +--------+ + + + | [place] MANUAL THER | Routin | 01/18/2014 | Shoulder pain, | | | TECH,1+REGIONS,EA 15 | e | 1:58 PM | right | | | MIN | | PST | | | + +--------+ + + + | [place] THERAPEUTIC | Routin | 01/18/2014 | Shoulder [...]
--- OUTSIDE RECORDS SUMMARY | ~2018-07-16 | XMS | Encounter Summary ---
Demographics + + + | Address | [address] | | | [place] [address] | + + + | Home Phone [...] [place] | | | | | [address] | | + + + + + Care Team Providers + +------+ + | Care Electric Locomotive Firer/Fireman Name | Role | Phone [...] | | | | | THERAPY | [address] | for Health | | | | | REFERRAL | Phone: | and Healing, | | | | | | [phone] | 1st floor | | | | | | Fax: | [place], [place] | | | | | | [phone] | [address] | | | | | | | Phone: | | | | | | | [phone] | | | | | | | Fax: | | | | | | | [phone] | +--------+--------+ + + + + Encounter [...] | | [facility] | [address] | | | | | [address] | [place], [place] | | | | | Mailcode: CH3P | [address] | | | | | [facility] | | | | | | and Healing, 1st | | | | | | floor [facility] [place] | | | | | | [address] | | | | | | [phone] | | | +--------+---------+ + + + [...] might be different fr om the original. [id number] KEVON WELCH Date of : 1940 Start [...] request that all cancellations be made at [facility] t 24 hours in advance by calling [phone]. Our office is open 7am-6pm and there is a [employer] line 24 hours a day. Any appointment [...] in their status. LENA RAIN PT [facility] REHABILITATION SERVICES AND HAND THERAPY [address] Mailcode: [address] [facility], 1st [facility] [address] documented in this e [...] | [place] MANUAL THER | Routin | 09/01/2011 | Shoulder pain | | | TECH,1+GERHARD,EA 15 | e | 4:16 PM | | | | MIN | | PDT | | | + +--------+ + + + | [place] THERAPEUTIC | Routin | 09/01/2011 | Shoulder [...]
--- OUTSIDE RECORDS SUMMARY | ~2018-07-16 | XMS | Encounter Summary ---
Demographics + + + | Address | [address] | | | [place] [address] | + + + | Home Phone [...] [place] | | | | | [address] | | + + + + + Care Team Providers + +------+ + | Care Coiled Tubing Supervisor Name | Role | Phone | [...] [facility] | [address] | | | | | [address] | [place], [place] | | | | | Mailcode: CH3P | [address] | | | | | [facility] | | | | | | and Healing, 1st | | | | | | floor [place], [place] | | | | | | [address] | | | | | | [phone] | | | +--------+---------+ + + + [...] [place], PT - 09/22/2013 9:46 AM PDT [id number] KEVON WELCH Date of : 1940 Start of care: 05/19/2013 Date of onset: 03/21/2013 Referring/Attending Practitioner: Misael Myers Primary/Referral Diagnosis/ICD-9: Shoulder pain, right (primary encounter diagnosis) Insurance: Payor: [employer] MEDICARE Plan: [employer] Product Type: P PO Service period from: 05/19/2013 to 01/18/2014 Number visits used/authorized: 08/20 [facility] PHYSICAL THERAPY TREATMENT - [...] Right 08/11/2013 Right 09/22/2013 Flexion 141 155 jnx727* atde052 Pre 125* Post 140 145 Abduction 146 150 rbb582* zgdu547 Pre 95* Post 132 144 ER at [...] home exercise program as pt lives in [facility] for posterior do minant shoulder strength Frequency/Duration: Follow up prn due to pt living in [facility], [place] Treatment began: 946 am Treatment ended: 1031 am This note is to serve as the discharge summary if Kevon fails to attend further Physical Th erapy appointments or contact the therapist regarding any change in their status. Alise [place], PT [facility] REHABILITATION SERVICES AND HAND THERAPY [address] Mailcode: [address] [address] documented in this encounter Plan of Treatment Not on filedocumented as of this encounter Procedures + +--------+ + + + | Procedure Name | Priori | Date/Time | Associated Diagnosis | Comments | | | ty | | | | + +--------+ + + + | [place] MANUAL THER | Routin | 09/22/2013 | Shoulder pain, | | | TECH,1+REGIONS,EA 15 | e | 12:19 PM | right | | | MIN | | PDT | | | + +--------+ + + + | [place] THERAPEUTIC | Routin | 09/22/2013 | Shoulder [...]
--- OUTSIDE RECORDS SUMMARY | ~2018-07-16 | XMS | Encounter Summary ---
Demographics + + + | Address | [address] | | | [place] [address] | + + + | Home Phone [...] [place] | | | | | [address] | | + + + + + Care Team Providers + +------+ + | Care Automobile Or Truck Rental Dispatcher Name | Role | Phone | + [...] | | | | REFERRING | Dejan [place], | | | | | | PROVIDER PER | [place] | | | | | | PT | [address] | | | | | | | Phone: | | | | | | | [phone] | | | | | | | Fax: | | | | | | | [phone] | +--------+--------+ + + + + Encounter Details +--------+---------+ + + + | Date | Type | Department | Care Team | Description | +--------+---------+ + + + | 06/29/ | Office | Preoperative | Lida Houser, | Shoulder pain | | 2011 | Visit | Medicine Clinic at | ANP [address] | (Primary Dx); Other | | | | [facility] 4th Floor [address] | specified | | | | [address] | [place], [place] | pre-operative | | | | Code: [facility] | [address] | examination; NELY | | | | for Health and | [phone] | (obstructive sleep | | | | Healing,4th Floor | | apnea) | | | | [place], [place] | | | | | | [address] | | | | | | [phone] | | | +--------+---------+ + + + [...] perfume, lotions or powder. Remove any nail syrian from at least one fingernail. Do not [...] Time: Someone from your surgeon's office or [facility] will provide you with [...] it is after office hours, call the [facility] adhesive bandage making operator at [phone] and ask them to page your doc [...] patient. Document will be s canned in [place]. Current Medication List Name Sig IBUPROFEN 200 [...] further investigation and manageme nt. A. Acute AL within 7 days: no B. Unstable angina/Recent AL (7- 30 days): no C. Decompensated CHF: [...] no Rate of cardiac , non fatal AL, non fatal cardiac arrest 0 risk factors [...] contribute to this patient's care. BRADFORD ALVES [facility] PREOPER[facility]IVE MEDICINE CLINIC [address] [place] [address] [place] [address] Marilin Vang MA - 06/30/2011 2:19 PM PDT Nerve Block Home Pump Education: Total time spent during clinic visit in patient education 15 minutes. [facility] Department of Anesthesia, Regional Anesthesia [...] + +--------+ + + + | NC COLLECTION VENOUS | Routin | 06/30/2011 | [...] view image for the detailed interpretation from [facility] results. | CARDIOLOGY | + + + + + + + + | Performing | Address | City/State/Zipcode | Phone Number | | Organization | | | | + + + + + | [facility] DEPT OF | [address] | [place], [place] | | | CARDIOLOGY | [address] | [address] | | + + + + + [...] | + + + + + | [facility] DEPARTMENT OF | [address] | [place] [address] | | | PATHOLOGY | [address] [...]
--- OUTSIDE RECORDS SUMMARY | ~2018-07-16 | XMS | Encounter Summary ---
Demographics + + + | Address | [address] | | | [place] [address] | + + + | Home Phone [...] [place] | | | | | [address] | | + + + + + Care Team Providers + +------+ + | Care On Site Services Specialist Name | Role | Phone | [...] | | | | | REFERRAL | [address] | and Healing, | | | | | | Phone: | 1st floor | | | | | | [phone] | [place], [place] | | | | | | Fax: | [address] | | | | | | [phone] | Phone: | | | | | | | [phone] | | | | | | | Fax: | | | | | | | [phone] | +--------+--------+ + + + + Encounter [...] | | | | [facility] | [facility] [address] | | | | | [address] | [facility] [place] | | | | | Mailcode: CH3P | [address] | | | | | [facility] | | | | | | and Healing, 1st | | | | | | floor [place], [place] | | | | | | [address] | | | | | | [phone] | | | +--------+---------+ + + + [...] might be different fr om the original. [id number] KEVON WELCH Date of : 1940 Start of care: 07/24/11 Date of onset:07/22/11 Referring/Attending Practitioner: Misael Myers MD . Primary/Referral Diagnosis/ICD-9: Encounter Diagnoses Name Primary? Shoulder pain Yes Insurance: Payor: [employer] MEDICARE Plan: [employer]DS MEDICARE Product Type: PPO Service period from: 08/24/11-11/22/11 Number visits used/authorized: 8 [facility] PHYSICAL THERAPY: Post-op SHOULDER PO week S/P [...] given: Sidelying EXTERNAL ROTATION With no weight [id number] Standing B EXTERNAL ROTATION With yellow Tband 1x12 (increase up to 3 sets)-verbal TV watching stretch supine with towel rolls supporting weight of elbow x 5 min -reviewed t owel placement and performed for 5 min Standing Ext with yellow Tband [id number] INTERNAL ROTATION Behind the back stretch with [...] as 24 hours in advance by calling [phone]. Our office is open 7am-6pm and there is a [employer] ssage line 24 hours a day. Any [...] their status. LENA RAIN PT [facility] REHABILITATION SERVICES AND HAND THERAPY [address] Mailcode: [address] [facility], [address] [place] [address] documented in this e ncounter Plan of Treatment Not on filedocumented as of this encounter Procedures + +--------+ + + + | Procedure Name | Priori | Date/Time | Associated Diagnosis | Comments | | | ty | | | | + +--------+ + + + | [place] MANUAL THER | Routin | 11/13/2011 | Shoulder pain | | | TECH,1+REGIONS,EA 15 | e | 4:58 PM | | | | MIN | | PDT | | | + +--------+ + + + | [place] THERAPEUTIC | Routin | 11/13/2011 | Shoulder [...]
--- OUTSIDE RECORDS SUMMARY | ~2018-07-16 | XMS | Encounter Summary ---
Demographics + + + | Address | [address] | | | [place] [address] | + + + | Home Phone [...] [place] | | | | | [address] | | + + + + + Care Team Providers + +------+ + | Care Barmaid Name | Role | Phone | + [...] | | | | | Procedures | [facility] | Mailcode: | | | | | PHYSICAL | Rd | [facility] | | | | | THERAPY | [place], [place] | for Health | | | | | REFERRAL | [address] | and Healing, | | | | | | | 1st floor | | | | | | | [place], [place] | | | | | | | [address] | | | | | | | Phone: | | | | | | | [phone] | | | | | | | Fax: | | | | | | | [phone] | +--------+--------+ + + + + Encounter [...] | [facility] | [address] | | | | | [address] | [place], [place] | | | | | Mailcode: [facility] | [address] | | | | | [facility] | | | | | | and Healing, 1st | | | | | | floor [place], [place] | | | | | | [address] | | | | | | [phone] | | | +--------+---------+ + + + [...] Washington, PT - 08/11/2013 4:09 PM PDT [id number] KEVON WELCH Date of : 1940 Start of care: 05/19/2013 Date of onset: 03/21/2013 Referring/Attending Practitioner: Misael Myers Primary/Referral Diagnosis/ICD-9: Shoulder pain, right (primary encounter diagnosis) Insurance: Payor: [employer] MEDICARE Plan: [employer] MEDICARE Product Type: P PO Service period from: 05/19/2013 to - Number visits used/authorized: [facility] PHYSICAL THERAPY TREATMENT - ORTHO [...] Right 07/20/2013 Right 08/11/2013 Flexion 141 155 [id number]* [id number] Pre 125* Post 140 Abduction 146 150 [id number]* [id number] Pre 95* Post 132 ER at 90 [...] home exercise program as pt lives in [facility], [place] for posterior do minant shoulder strength Frequency/Duration: Follow up prn due to pt living in [facility], [place] Treatment began: 0407 pm Treatment ended: 0452 pm This note is to serve as the discharge summary if Kevon fails to attend further Physical Th erapy appointments or contact the therapist regarding any change in their status. Alise [place], PT [facility] [address] Mailcode: [place] [address] documented in this encounter Plan of Treatment Not on filedocumented as of this encounter Procedures + +--------+ + + + | Procedure Name | Priori | Date/Time | Associated Diagnosis | Comments | | | ty | | | | + +--------+ + + + | [place] MANUAL THER | Routin | 08/11/2013 | Shoulder pain, | | | TECH,1+REGIONS,EA 15 | e | 5:16 PM | right | | | MIN | | PDT | | | + +--------+ + + + | [place] THERAPEUTIC | Routin | 08/11/2013 | Shoulder [...]
--- OUTSIDE RECORDS SUMMARY | ~2018-07-16 | XMS | Encounter Summary ---
Demographics + + + | Address | [address] | | | [place] [address] | + + + | Home Phone [...] [place] | | | | | [address] | | + + + + + Care Team Providers + +------+ + | Care Outsole Beveler Name | Role | Phone | + [...] | | | | | Procedures | [facility] | Mailcode: | | | | | PHYSICAL | Rd | [facility] | | | | | THERAPY | [place], [place] | for Health | | | | | REFERRAL | [address] | and Healing, | | | | | | | 1st floor | | | | | | | [place], [place] | | | | | | | [address] | | | | | | | Phone: | | | | | | | [phone] | | | | | | | Fax: | | | | | | | [phone] | +--------+--------+ + + + + Encounter [...] [facility] | [address] | | | | | [address] | [place], [place] | | | | | Mailcode: [facility] | [address] | | | | | [facility] | | | | | | and Healing, 1st | | | | | | floor [place], [place] | | | | | | [address] | | | | | | [phone] | | | +--------+---------+ + + + [...] Washington, PT - 01/18/2014 10:57 AM PST [id number] KEVON WELCH Date of : 1940 Start of care: 05/19/2013 Date of onset: 03/21/2013 Referring/Attending Practitioner: Misael Myers Primary/Referral Diagnosis/ICD-9: Shoulder pain, right (primary encounter diagnosis) Insurance: Payor: [employer] MEDICARE Plan: [employer] MEDICARE Product Type: P PO Service period from: 05/19/2013 to 01/18/2014 Number visits used/authorized: 11/20 [facility] PHYSICAL THERAPY TREATMENT - ORTHO SUBJECTIVE: [...] Right/Left 10/18/2013 Right 01/18/2014 Flexion 141 155 [id number]* [id number] Pre 125* Post 140 145 145/150 156 Abduction 146 150 qfm421* [id number] Pre 95* Post 132 144 140/145 150 [...] of session. 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 [facility] home [facility] program at this [...] in their status. Alise [place], PT [facility] [address] Mailcode: [place] [address] documented in this encounter Plan of Treatment Not on filedocumented as of this encounter Procedures + +--------+ + + + | Procedure Name | Priori | Date/Time | Associated Diagnosis | Comments | | | ty | | | | + +--------+ + + + | [place] MANUAL THER | Routin | 01/18/2014 | Shoulder pain, | | | TECH,1+REGIONS,EA 15 | e | 1:58 PM | right | | | MIN | | PST | | | + +--------+ + + + | [place] THERAPEUTIC | Routin | 01/18/2014 | Shoulder [...]
--- OUTSIDE RECORDS SUMMARY | ~2018-07-16 | XMS | Encounter Summary ---
Demographics + + + | Address | [address] | | | [place] [address] | + + + | Home Phone [...] [place] | | | | | [address] | | + + + + + Care Team Providers + +------+ + | Care Anesthesiologist And Critical Care Name | Role | Phone | + +------+ + | Doyle Johnson MD | PCP | | + +------+ + Encounter Details +--------+ + + + + | Date | Type | Department | Care Team | Description | +--------+ + + + + | 05/19/ | Hospital | Radiology/Imaging | | | | 2013 | Encounter | Lab at [facility] [address] | | | | | | [address] Mailcode: | | | | | | [facility] | | [facility] and Healing, | | | | | | [address] [place] [address], | | | | | | [place] [address] | | | | | | [phone] | | | +--------+ + + + [...] | | + +---------+ + + | [facility] DEPARTMENT OF | | | | | RADIOLOGY | | | | + +---------+ + + documented in this encounter Visit Diagnoses + + | Diagnosis | + + | Shoulder pain Pain in joint, shoulder region | + + documented in this encounter"
--- OUTSIDE RECORDS SUMMARY | ~2018-07-16 | XMS | Encounter Summary ---
Demographics + + + | Address | [address] | | | [place] [address] | + + + | Home Phone [...] [place] | | | | | [address] | | + + + + + Care Team Providers + +------+ + | Care Parking Officer Name | Role | Phone | [...] | | shoulder | Provider Per | [address] | | | | | pain | Patient NO | [address] | | | | | | REFERRING | Rd [place], | | | | | | PROVIDER PER | [place] | | | | | | PT | [address] | | | | | | | Phone: | | | | | | | [phone] | | | | | | | Fax: | | | | | | | [phone] | +--------+--------+ + + + + Encounter Details +--------+---------+ + + + | Date | Type | Department | Care Team | Description | +--------+---------+ + + + | 06/29/ | Office | Orthopaedics at | Misael Myers MD | Shoulder pain | | 2011 | Visit | [facility] [address] | [address] | (Primary Dx) | | | | Ave Mailcode: CH12A | [address] | | | | | [place] for [facility] | [place], [place] | | | | | and , | [address] | | | | | Floor [place], [place] | [phone] | | | | | [address] | | | | | | [phone] | | | +--------+---------+ + + + [...]
--- OUTSIDE RECORDS SUMMARY | ~2018-07-16 | XMS | Encounter Summary ---
Demographics + + + | Address | [address] | | | [place] [address] | + + + | Home Phone [...] [place] | | | | | [address] | | + + + + + Care Team Providers + +------+ + | Care Home Energy Auditor Name | Role | Phone | + [...] PHYSICAL | [facility] [place] | [facility] | | | | | THERAPY | [address] | for Health | | | | | REFERRAL | Phone: | and Healing, | | | | | | [phone] | 1st floor | | | | | | Fax: | [place], [place] | | | | | | [phone] | [address] | | | | | | | Phone: | | | | | | | [phone] | | | | | | | Fax: | | | | | | | [phone] | +--------+--------+ + + + + Encounter [...] [facility] | [address] | | | | | [address] | [place], [place] | | | | | Mailcode: CH3P | [address] | | | | | [facility] | | | | | | and Healing, 1st | | | | | | floor [facility] [place] | | | | | | [address] | | | | | | [phone] | | | +--------+---------+ + + + [...] might be different fr om the original. [id number] KEVON WELCH Date of : 1940 Start [...] change in their status. LENA RAIN, PT [facility] [address] Mailcode: [address] And [facility] [place], 1st Floor [facility] [address] documented in this e ncounter Plan of Treatment Not on filedocumented as of this encounter Procedures + +--------+ + + + | Procedure Name | Priori | Date/Time | Associated Diagnosis | Comments | | | ty | | | | + +--------+ + + + | [place] THERAPEUTIC | Routin | 05/29/2011 | Shoulder pain | | | ACTIVITIES | e | 3:47 PM | | | | | | PDT | | | + +--------+ + + + | [place] MANUAL THER | Routin | 05/29/2011 | Shoulder pain | | | TECH,1+REGIONS,EA 15 | e | 3:47 PM | | | | MIN | | PDT | | | + +--------+ + + + | [place] THERAPEUTIC | Routin | 05/29/2011 | Shoulder [...]
--- OUTSIDE RECORDS SUMMARY | ~2018-07-16 | XMS | Encounter Summary ---
Demographics + + + | Address | [address] | | | [place] [address] | + + + | Home Phone [...] [place] | | | | | [address] | | + + + + + Care Team Providers + +------+ + | Care Youth Agent Name | Role | Phone | [...] | | shoulder | Provider Per | [address] | | | | | pain | Patient NO | [address] | | | | | | REFERRING | Rd [place], | | | | | | PROVIDER PER | [place] | | | | | | PT | [address] | | | | | | | Phone: | | | | | | | [phone] | | | | | | | Fax: | | | | | | | [phone] | +--------+--------+ + + + + Encounter Details +--------+---------+ + + + | Date | Type | Department | Care Team | Description | +--------+---------+ + + + | 06/29/ | Office | Orthopaedics at | Misael Myers MD | Shoulder pain | | 2011 | Visit | [facility] [address] | [address] | (Primary Dx) | | | | Ave Mailcode: CH12A | [address] | | | | | [place] for [facility] | [place], [place] | | | | | and , | [address] | | | | | Floor [place], [place] | [phone] | | | | | [address] | | | | | | [phone] | | | +--------+---------+ + + + [...]
--- OUTSIDE RECORDS SUMMARY | ~2018-07-16 | XMS | Encounter Summary ---
Demographics + + + | Address | [address] | | | [place] [address] | + + + | Home Phone [...] [place] | | | | | [address] | | + + + + + Care Team Providers + +------+ + | Care Certified Credit Counselor Name | Role | Phone | [...] Therapy | Shoulder | MD [place] | [address] | | | | | pain | [address] | [address] | | | | | Procedures | [address] | Mailcode: | | | | | PHYSICAL | Rd | [facility] | | | | | THERAPY | [place], [place] | for Health | | | | | REFERRAL | [address] | and Healing, | | | | | | | 1st floor | | | | | | | [place], [place] | | | | | | | [address] | | | | | | | Phone: | | | | | | | [phone] | | | | | | | Fax: | | | | | | | [phone] | +--------+--------+ + + + + Reason [...] | | | | | | Dejan [place], | | | | | | | [place] | | | | | | | [address] | | | | | | | Phone: | | | | | | | [phone] | | | | | | | Fax: | | | | | | | [phone] | +--------+--------+ + + + + Encounter Details +--------+---------+ + + + | Date | Type | Department | Care Team | Description | +--------+---------+ + + + | 05/19/ | Office | Orthopaedics at | Misael Myers MD | Shoulder pain | | 2013 | Visit | [facility] [address] | [address] | (Primary Dx) | | | | Ave Mailcode: CH12A | [address] | | | | | [place] for [facility] | [place], [place] | | | | | and | [address] | | | | | Floor [place], [place] | [phone] | | | | | [address] | | | | | | [phone] | | | +--------+---------+ + + + [...]
--- OUTSIDE RECORDS SUMMARY | ~2018-07-16 | XMS | Encounter Summary ---
Demographics + + + | Address | [address] | | | [place] [address] | + + + | Home Phone [...] [place] | | | | | [address] | | + + + + + Care Team Providers + +------+ + | Care Pecan Picker Name | Role | Phone | [...] | | | | | THERAPY | [place], [place] | for Health | | | | | REFERRAL | [address] | and Healing, | | | | | | | 1st floor | | | | | | | [place], [place] | | | | | | | [address] | | | | | | | Phone: | | | | | | | [phone] | | | | | | | Fax: | | | | | | | [phone] | +--------+--------+ + + + + Encounter [...] [facility] | [address] | | | | | [address] | [place], [place] | | | | | Mailcode: [facility] | [address] | | | | | [facility] | | | | | | and Healing, 1st | | | | | | floor [place], [place] | | | | | | [address] | | | | | | [phone] | | | +--------+---------+ + + + [...] Washington, PT - 08/11/2013 4:09 PM PDT [id number] KEVON WELCH Date of : 1940 Start of care: 05/19/2013 Date of onset: 03/21/2013 Referring/Attending Practitioner: Misael Myers Primary/Referral Diagnosis/ICD-9: Shoulder pain, right (primary encounter diagnosis) Insurance: Payor: [email or web address] MEDICARE Plan: [email or web address] MEDIC[employer] Product Type: P PO Service period from: 05/19/2013 to - Number visits used/authorized: [facility] PHYSICAL THERAPY TREATMENT - ORTHO SUBJECTIVE: Current: [...] Right 07/20/2013 Right 08/11/2013 Flexion 141 155 [id number]* [id number] Pre 125* Post 140 Abduction 146 150 [id number]* [id number] Pre 95* Post 132 ER at 90 [...] exercise program as pt lives in [facility], [place] for posterior do minant shoulder strength Frequency/Duration: Follow up prn due to pt living in [facility], [place] Treatment began: 0407 pm Treatment ended: 0452 pm This note is to serve as the discharge summary if Kevon fails to attend further Physical Th erapy appointments or contact the therapist regarding any change in their status. Alise [place], PT [facility] [address] Mailcode: [place] [address] documented in this encounter Plan of Treatment Not on filedocumented as of this encounter Procedures + +--------+ + + + | Procedure Name | Priori | Date/Time | Associated Diagnosis | Comments | | | ty | | | | + +--------+ + + + | [place] MANUAL THER | Routin | 08/11/2013 | Shoulder pain, | | | TECH,1+REGIONS,EA 15 | e | 5:16 PM | right | | | MIN | | PDT | | | + +--------+ + + + | [place] THERAPEUTIC | Routin | 08/11/2013 | Shoulder [...]
--- OUTSIDE RECORDS SUMMARY | ~2018-07-16 | XMS | Clinical Summary ---
Demographics + + + | Address | [address] | | | [place] [address] | + + + | Home Phone | | + + + | Preferred Language | Unknown | + + + | Marital Status | | + + + | Hoahaoism Affiliation | Unknown | + + + | Race | Unknown | + + + | Ethnic Group | Unknown | + + + Author + + + | Author | [facility] | + + + | Organization | [facility] | + + + | Address | [...] Team Providers + +------+ + | Care Box Person Name | Role | Phone | [...] | [place] - GENERIC | MA-GEN | [id number] | Medica | | | | | [...] | | al/Fam | | [phone] | [phone] | [place] | | | lyla | | | [phone] | [address] | + +--------+ +--------+ + +
--- OUTSIDE RECORDS SUMMARY | ~2018-07-16 | XMS | Clinical Summary ---
Demographics + + + | Address | [address] | | | [place] [address] | + + + | Home Phone [...] [place] | | | | | [address] | | + + + + + Care Team Providers + +------+ + | Care Street Light Repairer Name | Role | Phone | + +------+ + | Zeyad May MD | PP | | + +------+ + Source Comments YOVANNY is fully live on both EpicCare Ambulatory and EpicCare InPatient.[facility] Allergies + + + + + + [...]
--- OUTSIDE RECORDS SUMMARY | ~2018-07-16 | XMS | Encounter Summary ---
Demographics + + + | Address | [address] | | | [place] [address] | + + + | Home Phone [...] [place] | | | | | [address] | | + + + + + Care Team Providers + +------+ + | Care Grocery Store Bagger Name | Role | Phone | + [...] | [address] | [place], [place] | | | | | Mailcode: CH3P | [address] | | | | | [facility] | | | | | | and Healing, 1st | | | | | | floor [facility] [place] | | | | | | [address] | | | | | | [phone] | | | +--------+---------+ + + + [...] Acosta, PT - 02/13/2011 6:28 PM PST [id number] KEVON WELCH Date of : 1940 Start of care: 02/13/2011 Date of onset: 12/24/2010 Referring/Attending Practitioner: Misael Myers MD . Primary/Referral Diagnosis/ICD-9: Encounter Diagnoses Name Primary? Shoulder pain Yes Insurance: Payor: [employer] MED[employer] Plan: [employer] MED[employer] Product Type: PPO Service period from: 02/13/2011 to 03/12/2011 Number visits used/authorized: 02/09 [facility] PHYSICAL THERAPY EVALUATION: SHOULDER [...] with left rotator cuff impingement. 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 [...] cont with PT closer to home in [place], [place] Treatment began: 1005 Treatment ended: 1030 This note is to serve as the discharge summary if pt fails to attend further Physical Thera py appointments or contact the therapist regarding any change in their status. ALISE ACOSTA PT [facility] [address] Mailcode: [address] [address] documented in this encounter [...] | [facility] | Routin | 02/13/2011 | [...]
--- OUTSIDE RECORDS SUMMARY | ~2018-07-16 | XMS | Encounter Summary ---
Demographics + + + | Address | [address] | | | [place] [address] | + + + | Home Phone [...] [place] | | | | | [address] | | + + + + + Care Team Providers + +------+ + | Care Brusher Warp Name | Role | Phone | + [...] | | | | | THERAPY | [place], [place] | for Health | | | | | REFERRAL | [address] | and Healing, | | | | | | Phone: | 1st floor | | | | | | [phone] | [place], [place] | | | | | | Fax: | [address] | | | | | | [phone] | Phone: | | | | | | | [phone] | | | | | | | Fax: | | | | | | | [phone] | +--------+--------+ + + + + Encounter Details +--------+---------+ + + + | Date | Type | Department | Care Team | Description | +--------+---------+ + + + | 10/08/ | Office | [facility] | Philly Rain, | Low back pain | | 2011 | Visit | Therapy Services at | PT [address] | (Primary Dx); | | | | [facility] | [address] | Herniated lumbar | | | | [address] | [place], [place] | intervertebral disc; | | | | Mailcode: CH3P | [address] | Lumbar | | | | [facility] | | radiculopathy; | | | | and Healing, 1st | | Degeneration of | | | | floor [place], [place] | | lumbar | | | | [address] | | intervertebral disc | | | | [phone] | | | +--------+---------+ + + + [...] might be different fr om the original. [id number] KEVON WELCH Date of : 1940 Start of care: 10/09/2011 Date of onset: 09/10/11 Referring/Attending Practitioner: Alcira Bocanegra PA . Primary/Referral Diagnosis/ICD-9: 724.2A Low back pain Insurance: Payor: [employer] MED[employer] Plan: [employer] MED[employer] Product Type: PPO Service period from: 10/09/2011 to: 11/08/11 Number visits used/authorized: 1/ Neurologist: [facility] [address] [place] [address] (Office) [facility] PHYSICAL THERAPY INITIAL EVALUATION SUBJECTIVE Age: 71 y.o. Sex: male Chief complaint: Chief Complaint Patient presents with LBP - Low back pain History of Presenting Problems: Kevon Welch is a 71 y.o. male with c/o LBP that began about a month ago. 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 PHILLY RAIN PT [facility] [address] Mailcode: [address] [facility], 1st [facility] [address] documented in this e ncounter Plan of Treatment Not on filedocumented as of this encounter Procedures + +--------+ + + + | Procedure Name | Priori | Date/Time | Associated Diagnosis | Comments | | | ty | | | | + +--------+ + + + | [facility] | Routin | 10/09/2011 | Low back pain | | | EXERCISES | e | 1:53 PM | | | | | | PDT | | | + +--------+ + + + | [facility] | Routin | 10/09/2011 | [...]
--- OUTSIDE RECORDS SUMMARY | ~2018-07-16 | XMS | Encounter Summary ---
Demographics + + + | Address | [address] | | | [place] [address] | + + + | Home Phone [...] [place] | | | | | [address] | | + + + + + Care Team Providers + +------+ + | Care Medical Intern Name | Role | Phone | [...] Procedures | [facility] | Mailcode: | | | | | PHYSICAL | Rd | [facility] | | | | | THERAPY | [place], [place] | for Health | | | | | REFERRAL | [address] | and Healing, | | | | | | | 1st floor | | | | | | | [place], [place] | | | | | | | [address] | | | | | | | Phone: | | | | | | | [phone] | | | | | | | Fax: | | | | | | | [phone] | +--------+--------+ + + + + Encounter Details +--------+---------+ + + + | Date | Type | Department | Care Team | Description | +--------+---------+ + + + | 05/19/ | Office | [facility] Physical | Rupesh, | Shoulder pain | | 2013 | Visit | Therapy Services at | Alise, PT [address] | (Primary Dx) | | | [facility] | [address] | | | | | [address] | [place], [place] | | | | | Mailcode: CH3P | [address] | | | | | [facility] | | | | | | and Ned, 1st | | | | | | floor [place], [place] | | | | | | [address] | | | | | | [phone] | | | +--------+---------+ + + + [...] [place], PT - 05/19/2013 12:23 PM PDT [id number] KEVON WELCH Date of : 1940 Start of care: 05/19/2013 Date of onset: 03/21/2013 Referring/Attending Practitioner: Misael Myers Primary/Referral Diagnosis/ICD-9: Shoulder pain (primary encounter diagnosis) Insurance: Payor: [employer] ODS MEDICARE Plan: [employer] MEDICARE Product Type: P PO Service period from: 05/19/2013 to - Number visits used/authorized: [facility] PHYSICAL THERAPY EVALUATION- ORTHO SUBJECTIVE: History of [...] new with i njury 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 Alise [place], Pt [facility] REHABILITATION SERVICES AND HAND THERAPY [address] Mailcode: [address] [address] documented in this encounter Plan of Treatment Not on filedocumented as of this encounter Procedures + +--------+ + + + | Procedure Name | Priori | Date/Time | Associated Diagnosis | Comments | | | ty | | | | + +--------+ + + + | [place] THERAPEUTIC | Routin | 05/19/2013 | Shoulder pain | | | EXERCISES | e | 3:30 PM | | | | | | PDT | | | + +--------+ + + + | [place] PHYS THERAPY | Routin | 05/19/2013 | [...]
--- OUTSIDE RECORDS SUMMARY | ~2018-07-16 | XMS | Encounter Summary ---
Demographics + + + | Address | [address] | | | [place] [address] | + + + | Home Phone [...] [place] | | | | | [address] | | + + + + + Care Team Providers + +------+ + | Care Business Case Analyst Name | Role | Phone | [...] | | shoulder | Provider Per | [address] | | | | | pain | Patient NO | Celestine Morales | | | | | | REFERRING | Dejan Onofre | | | | | | PROVIDER PER | [place] | | | | | | PT | [address] | | | | | | | Phone: | | | | | | | [phone] | | | | | | | Fax: | | | | | | | [phone] | +--------+--------+ + + + + Encounter Details +--------+---------+ + + + | Date | Type | Department | Care Team | Description | +--------+---------+ + + + | 06/29/ | Office | Orthopaedics at | Katty Chairez PA | Other specified | | 2011 | Visit | [facility] [address] | [address] | pre-operative | | | | Ave Mailcode: CH12A | [place], [place] | examination (Primary | | | | [facility] | [address] | Dx) | | | | and Healing, 12th | [phone] | | | | | Floor [place], [place] | | | | | | [address] | | | | | | [phone] | | | +--------+---------+ + + + [...] take place on the hill at the [facility]: Surgeries scheduled in the [facility] (4 North): registration is located on the 4th floor of [facility] (Day Surgery). Surgeries scheduled in the [facility]: registration is located on the 9th floor. Surgeries scheduled in [facility]: registration is located on the 6th floor. Surgeries scheduled in the [facility]: registration is located i n the [facility] on the first floor. For surgeries scheduled to take place at the [facility]: registration is l [...] If you use specialized medical equipment at [facility], please check with your provider before [...]
--- OUTSIDE RECORDS SUMMARY | ~2018-07-16 | XMS | Clinical Summary ---
Demographics + + + | Address | [address] | | | [place] [address] | + + + | Home Phone | | + + + | Preferred Language | Unknown | + + + | Marital Status | | + + + | Latter-Day Affiliation | Unknown | + + + | Race | Unknown | + + + | Ethnic Group | Unknown | + + + Author + + + | Author | [facility] | | | and [place] | + + + | Organization | [facility] | | | and [place] [...] [place] | | | | | [address] | | + + + + + Care Team Providers + +------+ + | Care Computed Tomography Technician Name | Role | Phone | [...] | [employer] | [employer] | [id number] | 02/09/19 | | | [employer] | [...] | | al/Fam | | 1941 | [phone] | [place] [address] | | | lyla | | | 7 (Home) | | + +--------+ +--------+ + + Advance Directives Patient has advance care planning documents on file. For more information, please contact:[facility] [place] [address]
--- OUTSIDE RECORDS SUMMARY | ~2018-07-16 | XMS | Encounter Summary ---
Demographics + + + | Address | [address] | | | [place] [address] | + + + | Home Phone [...] [place] | | | | | [address] | | + + + + + Care Team Providers + +------+ + | Care Fur Storage Clerk Name | Role | Phone | [...] | | | | | THERAPY | [address] | for Health | | | | | REFERRAL | Phone: | and Healing, | | | | | | [phone] | 1st floor | | | | | | Fax: | [place], [place] | | | | | | [phone] | [address] | | | | | | | Phone: | | | | | | | [phone] | | | | | | | Fax: | | | | | | | [phone] | +--------+--------+ + + + + Encounter [...] | | | [facility] | [address] | | | | | [address] | [place], [place] | | | | | Mailcode: CH3P | [address] | | | | | [facility] | | | | | | and Healing, 1st | | | | | | floor [facility] [place] | | | | | | [address] | | | | | | [phone] | | | +--------+---------+ + + + [...] might be different fr om the original. [id number] KEVON WELCH Date of : 1940 Start of care: 07/24/11 Date of onset:07/22/11 Referring/Attending Practitioner: Misael Myres MD . Primary/Referral Diagnosis/ICD-9: Encounter Diagnoses Name Primary? Shoulder pain Yes Insurance: Payor: ODS MEDICARE Plan: ODS MEDICARE Product Type: PPO Service period from: 07/24/11-08/23/11 Number visits used/authorized: 2 [facility] PHYSICAL THERAPY: Post-op SHOULDER POST OP DAY [...] weeks Treatment began: 1345 Treatment ended: 1420; [phone] for game ready Reviewed cancel/no show policy with patient. Pt voiced understanding. "At times we understand you must cancel. We request that all cancellations be made at [facility] t 24 hours in advance by calling [phone]. Our office is open 7am-6pm and there is a Paxatage line 24 hours a day. Any appointment [...] change in their status. LENA RAIN PT [facility] REHABILITATION SERVICES AND HAND THERAPY [address] Mailcode: [address] [facility], [address] [place] [address] documented in this e ncounter Plan of Treatment Not on filedocumented as of this encounter Procedures + +--------+ + + + | Procedure Name | Priori | Date/Time | Associated Diagnosis | Comments | | | ty | | | | + +--------+ + + + | HI MANUAL THER | Routin | 08/05/2011 | Shoulder pain | | | TECH,1+REGIONS,EA 15 | e | 4:04 PM | | | | MIN | | PDT | | | + +--------+ + + + | HI THERAPEUTIC | Routin | 08/05/2011 | Shoulder [...]
--- OUTSIDE RECORDS SUMMARY | ~2018-07-16 | XMS | Encounter Summary ---
Demographics + + + | Address | [address] | | | [place] [address] | + + + | Home Phone [...] [place] | | | | | [address] | | + + + + + Care Team Providers + +------+ + | Care Student Advisor Name | Role | Phone | + [...] | | | | | Procedures | [facility] | Mailcode: | | | | | PHYSICAL | Rd | [facility] | | | | | THERAPY | [place], [place] | for Health | | | | | REFERRAL | [address] | and Healing, | | | | | | | 1st floor | | | | | | | [place], [place] | | | | | | | [address] | | | | | | | Phone: | | | | | | | [phone] | | | | | | | Fax: | | | | | | | [phone] | +--------+--------+ + + + + Encounter [...] | | [facility] | [address] | | | | | [address] | [place], [place] | | | | | Mailcode: CH3P | [address] | | | | | [facility] | | | | | | and Ned, 1st | | | | | | floor [place], [place] | | | | | | [address] | | | | | | [phone] | | | +--------+---------+ + + + [...] [place] PT - 06/23/2013 8:58 AM PDT [id number] KEVON WELCH Date of : 1940 Start of care: 05/19/2013 Date of onset: 03/21/2013 Referring/Attending Practitioner: Misael Myers Primary/Referral Diagnosis/ICD-9: Shoulder pain (primary encounter diagnosis) Insurance: Payor: [employer] MEDICARE Plan: [employer] MEDIC[employer] Product Type: P PO Service period from: 05/19/2013 to - Number visits used/authorized: 2/- [facility] PHYSICAL THERAPY [...] home exercise program as pt lives in [facility], [place] for posterior do minant shoulder strength Frequency/Duration: Follow up prn due to pt living in [facility] and traveling to [facility] for 4 weeks Treatment began: 899 Treatment ended: 944 This note is to serve as the discharge summary if Kevon fails to attend further Physical Th erapy appointments or contact the therapist regarding any change in their status. Alise [place], Pt [facility] REHABILITATION SERVICES AND HAND THERAPY [address] Mailcode: [place] [address] documented in this encounter Plan of Treatment Not on filedocumented as of this encounter Procedures + +--------+ + + + | Procedure Name | Priori | Date/Time | Associated Diagnosis | Comments | | | ty | | | | + +--------+ + + + | [place] MANUAL THER | Routin | 06/23/2013 | Shoulder pain | | | TECH,1+REGIONS,EA 15 | e | 10:22 AM | | | | MIN | | PDT | | | + +--------+ + + + | CO THERAPEUTIC | Routin | 06/23/2013 | Shoulder [...]
--- OUTSIDE RECORDS SUMMARY | ~2018-07-16 | XMS | Encounter Summary ---
Demographics + + + | Address | [address] | | | [place] [address] | + + + | Home Phone [...] [place] | | | | | [address] | | + + + + + Care Team Providers + +------+ + | Care Duster Tender Name | Role | Phone | [...] | | shoulder | Provider Per | [address] | | | | | pain | Patient NO | Celestine Morales | | | | | | REFERRING | Dejan Onofre | | | | | | PROVIDER PER | [place] | | | | | | [place] | [address] | | | | | | | Phone: | | | | | | | [phone] | | | | | | | Fax: | | | | | | | [phone] | +--------+--------+ + + + + Encounter Details +--------+---------+ + + + | Date | Type | Department | Care Team | Description | +--------+---------+ + + + | 02/13/ | Office | Orthopaedics at | Misael Myers MD | Shoulder pain; | | 2011 | Visit | [facility] [address] | [address] [facility] | Rotator cuff | | | | [place] Mailcode: CH12A | [address] | tendinitis; | | | | Center [facility] | [facility] [place] | Disorders of bursae | | | | and Healing, | [address] | and tendons in | | | | Floor [facility] [place] | [phone] | shoulder region, | | | | [address] | | unspecified | | | | [phone] | | | +--------+---------+ + + + [...] Speed's biceps test was ne gative. and Williamson's test was positive. The patient had normal [...]
--- OUTSIDE RECORDS SUMMARY | ~2018-07-16 | XMS | Encounter Summary ---
Demographics + + + | Address | [address] | | | [place] [address] | + + + | Home Phone [...] [place] | | | | | [address] | | + + + + + Care Team Providers + +------+ + | Care Support Technician Name | Role | Phone | + +------+ + | Doyle Johnson MD | PCP | Unavailable | + +------+ + Encounter Details +--------+ + + + + | Date | Type | Department | Care Team | Description | +--------+ + + + + | 06/29/ | Anesthesia | Preoperative | Lida Houser, | | | 2011 | Event | [facility] at | ANP [address] [facility] | | | | | [facility] 4th Floor [address] | [address] | | | | | [address] | [place], [place] | | | | | Code: [address] | [address] | | | | | for Health and | [phone] | | | | | Healing,4th Floor | | | | | | [place], [place] | | | | | | [address] | | | | | | [phone] | | | +--------+ + + + [...]
--- OUTSIDE RECORDS SUMMARY | ~2018-07-16 | XMS | Encounter Summary ---
Demographics + + + | Address | [address] | | | [place] [address] | + + + | Home Phone [...] [place] | | | | | [address] | | + + + + + Care Team Providers + +------+ + | Care Refinery Pipeline Operator Name | Role | Phone | [...] | | | | | REFERRAL | [address] | and Healing, | | | | | | Phone: | 1st floor | | | | | | [phone] | [facility] [place] | | | | | | Fax: | [address] | | | | | | [phone] | Phone: | | | | | | | [phone] | | | | | | | Fax: | | | | | | | [phone] | +--------+--------+ + + + + Encounter Details +--------+---------+ + + + | Date | Type | Department | Care Team | Description | +--------+---------+ + + + | 10/29/ | Office | [facility] Physical | Lena Rain, | Herniated lumbar | | 2011 | Visit | Therapy Services at | PT [address] | intervertebral disc; | | | | [facility] | [address] | Degeneration of | | | | [address] | [place], [place] | lumbar | | | | Mailcode: CH3P | [address] | intervertebral disc; | | | | [facility] | | Low back pain; | | | | and Healing, 1st | | Lumbar radiculopathy | | | | floor [place], [place] | | | | | | [address] | | | | | | [phone] | | | +--------+---------+ + + + [...] might be different fr om the original. [id number] KEVON WELCH Date of : 1940 Start of care: 10/09/2011 Date of onset: 09/10/11 Referring/Attending Practitioner: Alcira Bocanegra PA . Primary/Referral Diagnosis/ICD-9: 722.10H Herniated lumbar intervertebral disc Insurance: Payor: ODS MEDICARE Plan: ODS MEDICARE Product Type: PPO Service period from: 10/09/2011 to: 11/08/11 Number visits used/authorized: 6/ Neurologist: Dr. [facility] [address] [place] [address] (Office) [facility] PHYSICAL THERAPY SUBJECTIVE Age: 71 y.o. Sex: [...] month ago. 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 LENA RAIN PT [facility] REHABILITATION SERVICES AND HAND THERAPY [address] Mailcode: [address], [address] [place] [address] documented in this e ncounter Plan of Treatment Not on filedocumented as of this encounter Procedures + +--------+ + + + | Procedure Name | Priori | Date/Time | Associated Diagnosis | Comments | | | ty | | | | + +--------+ + + + | [place] THERAPEUTIC | Routin | 10/30/2011 | Herniated [...] + | [place] THERAPEUTIC | Routin | 10/30/2011 | Herniated [...]
--- OUTSIDE RECORDS SUMMARY | ~2018-07-16 | XMS | Encounter Summary ---
Demographics + + + | Address | [address] | | | [place] [address] | + + + | Home Phone [...] [place] | | | | | [address] | | + + + + + Care Team Providers + +------+ + | Care Design Engineer Marine Equipment Name | Role | Phone | + [...] Therapy | Shoulder | MD Gordy | [address] | | | | | pain | [address] | [address] | | | | | Procedures | [address] | Mailcode: | | | | | PHYSICAL | Rd | [facility] | | | | | THERAPY | [place], [place] | for Health | | | | | REFERRAL | [address] | and Healing, | | | | | | | 1st floor | | | | | | | [place], [place] | | | | | | | [address] | | | | | | | Phone: | | | | | | | [phone] | | | | | | | Fax: | | | | | | | [phone] | +--------+--------+ + + + + Reason [...] | | | | | | Dejan [place], | | | | | | | [place] | | | | | | | [address] | | | | | | | Phone: | | | | | | | [phone] | | | | | | | Fax: | | | | | | | [phone] | +--------+--------+ + + + + Encounter Details +--------+---------+ + + + | Date | Type | Department | Care Team | Description | +--------+---------+ + + + | 05/19/ | Office | Orthopaedics at | Misael Myers MD | Shoulder pain | | 2013 | Visit | [facility] [address] | [address] | (Primary Dx) | | | | Ave Mailcode: CH12A | [address] | | | | | [place] for [facility] | [place], [place] | | | | | and | [address] | | | | | Floor [place], [place] | [phone] | | | | | [address] | | | | | | [phone] | | | +--------+---------+ + + + [...] Shoulder (Right) Past Medical History Diagnosis Date NEYL (obstructive sleep apnea) Past Surgical History Procedure [...]
--- OUTSIDE RECORDS SUMMARY | ~2018-07-16 | XMS | Encounter Summary ---
Demographics + + + | Address | [address] | | | [place] [address] | + + + | Home Phone [...] [place] | | | | | [address] | | + + + + + Care Team Providers + +------+ + | Care Try Out Person Name | Role | Phone | [...] | | | | THERAPY | [facility] [place] | for Health | | | | | REFERRAL | [address] | and Healing, | | | | | | Phone: | 1st floor | | | | | | [phone] | [place], [place] | | | | | | Fax: | [address] | | | | | | [phone] | Phone: | | | | | | | [phone] | | | | | | | Fax: | | | | | | | [phone] | +--------+--------+ + + + + Encounter Details +--------+---------+ + + + | Date | Type | Department | Care Team | Description | +--------+---------+ + + + | 10/15/ | Office | [facility] Physical | Philly Rain, | Low back pain; | | 2011 | Visit | Therapy Services at | PT [address] | Lumbar | | | | [facility] | [address] | radiculopathy; | | | | [address] | [place], [place] | Herniated lumbar | | | | Mailcode: CH3P | [address] | intervertebral disc; | | | | [place] for [facility] | | Degeneration of | | | | and Healing, 1st | | lumbar | | | | floor [place], [place] | | intervertebral disc | | | | [address] | | | | | | [phone] | | | +--------+---------+ + + + [...] might be different fr om the original. [id number] KEVON WELCH Date of : 1940 Start of care: 10/09/2011 Date of onset: 09/10/11 Referring/Attending Practitioner: Alcira Bocanegra PA . Primary/Referral Diagnosis/ICD-9: 722.10H Herniated lumbar intervertebral disc Insurance: Payor: ODS MEDICARE Plan: ODS MEDICARE Product Type: PPO Service period from: 10/09/2011 to: 11/08/11 Number visits used/authorized: 3/ Neurologist: Dr. Rafal [facility] [address] [place] [address] (Office) [facility] PHYSICAL THERAPY SUBJECTIVE Age: 71 y.o. 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 PHILLY RAIN PT [facility] REHABILITATION SERVICES AND HAND THERAPY [address] Mailcode: [address] [facility], [address] [place] [phone] documented in this e ncounter Plan [...]
--- OUTSIDE RECORDS SUMMARY | ~2018-07-16 | XMS | Encounter Summary ---
Demographics + + + | Address | [address] | | | [place] [address] | + + + | Home Phone [...] [place] | | | | | [address] | | + + + + + Care Team Providers + +------+ + | Care Plant Reliability Engineer Name | Role | Phone | [...] | follow up) | | | | [facility] | | | | | | [address] | | | | | | Mail Code: CH15P | | | | | | [facility] | | | | | | and Healing, | | | | | | Floor [place], [place] | | | | | | [address] | | | | | | [phone] | | | +--------+ + + + [...]
--- OUTSIDE RECORDS SUMMARY | ~2018-07-16 | XMS | Encounter Summary ---
Demographics + + + | Address | [address] | | | [place] [address] | + + + | Home Phone [...] [place] | | | | | [address] | | + + + + + Care Team Providers + +------+ + | Care Hair Cutter Name | Role | Phone | [...] | | | | REFERRING | Dejan [place], | | | | | | PROVIDER PER | [place] | | | | | | [place] | [address] | | | | | | | Phone: | | | | | | | [phone] | | | | | | | Fax: | | | | | | | [phone] | +--------+--------+ + + + + Encounter Details +--------+---------+ + + + | Date | Type | Department | Care Team | Description | +--------+---------+ + + + | 06/29/ | Office | Preoperative | Lida Houser, | Shoulder pain | | 2011 | Visit | Medicine Clinic at | ANP [address] | (Primary Dx); Other | | | | [facility] 4th Floor [address] | specified | | | | [address] | [place], [place] | pre-operative | | | | Code: [facility] | [address] | examination; NELY | | | | for Health and | [phone] | (obstructive sleep | | | | Healing,4th Floor | | apnea) | | | | [place], [place] | | | | | | [address] | | | | | | [phone] | | | +--------+---------+ + + + [...] perfume, lotions or powder. Remove any nail cayman islander from at least one fingernail. Do not [...] Time: Someone from your surgeon's office or [facility] will provide you with information regarding your [...] it is after office hours, call the [facility] cell support operator at [phone] and ask them to page your doc [...] patient. Document will be s canned in [employer]cert. Current Medication List Name Sig IBUPROFEN 200 [...] further investigation and manageme nt. A. Acute [place] within 7 days: no B. Unstable angina/Recent [place] (7- 30 days): no C. Decompensated CHF: [...] no Rate of cardiac , non fatal [place], non fatal cardiac arrest 0 risk factors [...] contribute to this patient's care. BRADFORD ALVES [facility] CLINIC [facility] PREOPERATIVE MEDICINE CLINIC [address] [place] [address] [place] [address] Marilin Vang MA - 06/30/2011 2:19 PM PDT Nerve Block Home Pump Education: Total time spent during clinic visit in patient education 15 minutes. [facility] Department of Anesthesia, Regional Anesthesia patient [...] + +--------+ + + + | ND COLLECTION VENOUS | Routin | 06/30/2011 | [...] view image for the detailed interpretation from Vaultize results. | CARDIOLOGY | + + + + + + + + | Performing | Address | City/State/Zipcode | Phone Number | | Organization | | | | + + + + + | [facility] DEPT OF | [address] | [place], [place] | | | CARDIOLOGY | [address] | [address] | | + + + + + [...] | + + + + + | [facility] DEPARTMENT OF | [address] | [place] [address] | | | PATHOLOGY | [address] [...]
--- OUTSIDE RECORDS SUMMARY | ~2018-07-16 | XMS | Clinical Summary ---
Demographics + + + | Address | [address] | | | [place] [address] | + + + | Home Phone [...] [place] | | | | | [address] | | + + + + + Care Team Providers + +------+ + | Care Swimming Pool Installer Name | Role | Phone | + +------+ + | Zeyad May MD | PP | | + +------+ + Source Comments YOVANNY is fully live on both EpicCare Ambulatory and EpicCare InPatient.[facility] Allergies + + + + [...]
--- OUTSIDE RECORDS SUMMARY | ~2018-07-16 | XMS | Encounter Summary ---
Demographics + + + | Address | [address] | | | [place] [address] | + + + | Home Phone [...] [place] | | | | | [address] | | + + + + + Care Team Providers + +------+ + | Care Veneer Sawyer Name | Role | Phone | + [...] | | | | | PHYSICAL | [place], [place] | [address] | | | | | THERAPY | [address] | for Health | | | | | REFERRAL | Phone: | and Healing, | | | | | | [phone] | 1st floor | | | | | | Fax: | [place], [place] | | | | | | [phone] | [address] | | | | | | | Phone: | | | | | | | [phone] | | | | | | | Fax: | | | | | | | [phone] | +--------+--------+ + + + + Encounter [...] [facility] | [address] | | | | | [address] | [place], [place] | | | | | Mailcode: CH3 | [address] | | | | | [facility] | | | | | | and Ned, 1st | | | | | | floor [place], [place] | | | | | | [address] | | | | | | [phone] | | | +--------+---------+ + + + [...] might be different fr om the original. [id number] KEVON WELCH Date of : 1940 Start of care: 07/24/11 Date of onset:07/22/11 Referring/Attending Practitioner: Misael Myers MD . Primary/Referral Diagnosis/ICD-9: Encounter Diagnoses Name Primary? Shoulder pain Yes Insurance: Payor: ODS MEDICARE Plan: ODS MEDICARE Product Type: PPO Service period from: 07/24/11-08/23/11 Number visits used/authorized: 1 [facility] PHYSICAL THERAPY: Post-op SHOULDER POST [...] request that all cancellations be made at [facility] 24 hours in advance by calling [phone]. Our office is open 7am-6pm and there is a [employer] ssage line 24 hours a day. Any [...] [facility] [address] Mailcode: [address] [facility], [address] [place] [address] documented in this e ncounter Plan [...] + | DC THERAPEUTIC | Routin | 07/24/2011 | Shoulder pain | | | ACTIVITIES | e | 4:38 PM | | | | | | PDT | | | + +--------+ + + + | DC THERAPEUTIC | Routin | 07/24/2011 | Shoulder pain | | | EXERCISES | e | 4:38 PM | | | | | | PDT | | | + +--------+ + + + | DC PHYS THERAPY | Routin | 07/24/2011 | [...]
--- OUTSIDE RECORDS SUMMARY | ~2018-07-16 | XMS | Encounter Summary ---
Demographics + + + | Address | [address] | | | [place] [address] | + + + | Home Phone [...] [place] | | | | | [address] | | + + + + + Care Team Providers + +------+ + | Care Bilingual Inside Sales Representative Name | Role | Phone [...] | | shoulder | Provider Per | [address] | | | | | pain | Patient NO | [address] | | | | | | REFERRING | Rd [place], | | | | | | PROVIDER PER | [place] | | | | | | [place] | [address] | | | | | | | Phone: | | | | | | | [phone] | | | | | | | Fax: | | | | | | | [phone] | +--------+--------+ + + + + Encounter Details +--------+---------+ + + + | Date | Type | Department | Care Team | Description | +--------+---------+ + + + | 03/27/ | Office | Orthopaedics at | Misael Myers MD | Rotator cuff | | 2011 | Visit | [facility] [address] | [address] | tendinitis (Primary | | | | Ave Mailcode: CH12A | [address] | Dx) | | | | [place] for [facility] | [place], [place] | | | | | and [facility], | [address] | | | | | Floor [place], [place] | [phone] | | | | | [address] | | | | | | [phone] | | | +--------+---------+ + + + [...]
--- OUTSIDE RECORDS SUMMARY | ~2018-07-16 | XMS | Encounter Summary ---
Demographics + + + | Address | [address] | | | [place] [address] | + + + | Home Phone [...] [place] | | | | | [address] | | + + + + + Care Team Providers + +------+ + | Care Wall Covering Contractor Name | Role | Phone | + [...] | | | | | THERAPY | [facility] [place] | for Health | | | | | REFERRAL | [address] | and Healing, | | | | | | Phone: | 1st floor | | | | | | [phone] | [facility] [place] | | | | | | Fax: | [address] | | | | | | [phone] | Phone: | | | | | | | [phone] | | | | | | | Fax: | | | | | | | [phone] | +--------+--------+ + + + + Encounter Details +--------+---------+ + + + | Date | Type | Department | Care Team | Description | +--------+---------+ + + + | 10/22/ | Office | [facility] Physical | Lena Rain, | Herniated lumbar | | 2011 | Visit | Therapy Services at | PT [address] | intervertebral disc; | | | | [facility] | [address] | Degeneration of | | | | [address] | [place], [place] | lumbar | | | | Mailcode: CH3P | [address] | intervertebral disc; | | | | [facility] | | Low back pain; | | | | and Healing, 1st | | Lumbar radiculopathy | | | | floor [place], [place] | | | | | | [address] | | | | | | [phone] | | | +--------+---------+ + + + [...] might be different fr om the original. [id number] KEVON WELCH Date of : 1940 Start of care: 10/09/2011 Date of onset: 09/10/11 Referring/Attending Practitioner: Alcira Bocanegra PA . Primary/Referral Diagnosis/ICD-9: 722.10H Herniated lumbar intervertebral disc Insurance: Payor: ODS MEDICARE Plan: ODS MEDICARE Product Type: PPO Service period from: 10/09/2011 to: 11/08/11 Number visits used/authorized: 5/ Neurologist: Dr. [facility] [address] [place] [address] (Office) [facility] PHYSICAL [...] Social History: lives with Recreational Activities/Hobbies: plays Damballa; reading; does a lot of computer/keyboarding Functional [...] in their status. LENA RAIN PT [facility] AND HAND THERAPY [address] Mailcode: [id number], [address] [place] [address] documented in this e ncounter Plan of Treatment Not on filedocumented as of this encounter Procedures + +--------+ + + + | Procedure Name | Priori | Date/Time | Associated Diagnosis | Comments | | | ty | | | | + +--------+ + + + | [place] THERAPEUTIC | Routin | 10/23/2011 | Herniated [...]
--- OUTSIDE RECORDS SUMMARY | ~2018-07-16 | XMS | Encounter Summary ---
Demographics + + + | Address | [address] | | | [place] [address] | + + + | Home Phone [...] [place] | | | | | [address] | | + + + + + Care Team Providers + +------+ + | Care It Sales Consultant Name | Role | Phone | [...] | | | | | THERAPY | [place], [place] | for Health | | | | | REFERRAL | [address] | and Healing, | | | | | | | 1st floor | | | | | | | [place], [place] | | | | | | | [address] | | | | | | | Phone: | | | | | | | [phone] | | | | | | | Fax: | | | | | | | [phone] | +--------+--------+ + + + + Encounter Details +--------+---------+ + + + | Date | Type | Department | Care Team | Description | +--------+---------+ + + + | 10/19/ | Office | [facility] | Rupesh, | Shoulder pain, right | | 2013 | Visit | Therapy Services at | Alise, PT [address] | (Primary Dx) | | | | [facility] | [address] | | | | | [address] | [place], [place] | | | | | Mailcode: [facility] | [address] | | | | | [facility] | | | | | | and Healing, 1st | | | | | | floor [place], [place] | | | | | | [address] | | | | | | [phone] | | | +--------+---------+ + + + [...] [place] PT - 10/19/2013 10:15 AM PDT [id number] KEVON WELCH Date of : 1940 Start of care: 05/19/2013 Date of onset: 03/21/2013 Referring/Attending Practitioner: Misael Myers Primary/Referral Diagnosis/ICD-9: Shoulder pain, right (primary encounter diagnosis) Insurance: Payor: [employer] MEDICARE Plan: [employer] MEDICARE Product Type: P PO Service period from: 05/19/2013 to 01/18/2014 Number visits used/authorized: 09/20 [facility] PHYSICAL THERAPY TREATMENT - ORTHO [...] Right 09/22 Right/Left 10/18/2013 Flexion 141 155 [id number]* [id number] Pre 125* Post 140 145 145/150 Abduction 146 150 [id number]* [id number] Pre 95* Post 132 144 140/145 ER [...] lowing carrying chair up flight of stairs. [place] with continued pain and limited motion with [...] [facility], [place] Treatment began: 1015 am Treatment ended: 1100 am This note is to serve as the discharge summary if Kevon fails to attend further Physical Th erapy appointments or contact the therapist regarding any change in their status. Alise [place], PT [facility] REHABIL[facility]ATION SERVICES AND HAND THERAPY [address] Mailcode: [place] [address] documented in this encounter Plan of Treatment Not on filedocumented as of this encounter Procedures + +--------+ + + + | Procedure Name | Priori | Date/Time | Associated Diagnosis | Comments | | | ty | | | | + +--------+ + + + | MA MANUAL THER | Routin | 10/19/2013 | Shoulder pain, | | | TECH,1+REGIONS,EA 15 | e | 12:14 PM | right | | | MIN | | PDT | | | + +--------+ + + + | MA THERAPEUTIC | Routin | 10/19/2013 | Shoulder [...]
--- OUTSIDE RECORDS SUMMARY | ~2018-07-16 | XMS | Encounter Summary ---
Demographics + + + | Address | [address] | | | [place] [address] | + + + | Home Phone [...] [place] | | | | | [address] | | + + + + + Care Team Providers + +------+ + | Care Special Effects Artist Name | Role | Phone | + [...] | | | | | THERAPY | [place], [place] | for Health | | | | | REFERRAL | [address] | and Healing, | | | | | | | 1st floor | | | | | | | [place], [place] | | | | | | | [address] | | | | | | | Phone: | | | | | | | [phone] | | | | | | | Fax: | | | | | | | [phone] | +--------+--------+ + + + + Encounter Details +--------+---------+ + + + | Date | Type | Department | Care Team | Description | +--------+---------+ + + + | 05/19/ | Office | [facility] Physical | Rupesh, | Shoulder pain | | 2013 | Visit | Therapy Services at | Alise, PT [address] | (Primary Dx) | | | | [facility] | [address] | | | | | [address] | [place], [place] | | | | | Mailcode: CH3P | [address] | | | | | [facility] | | | | | | and Ned, 1st | | | | | | floor [place], [place] | | | | | | [address] | | | | | | [phone] | | | +--------+---------+ + + + [...] [place], PT - 05/19/2013 12:23 PM PDT [id number] KEVON WELCH Date of : 1940 Start of care: 05/19/2013 Date of onset: 03/21/2013 Referring/Attending Practitioner: Misael Myers Primary/Referral Diagnosis/ICD-9: Shoulder pain (primary encounter diagnosis) Insurance: Payor: [employer] ODS MEDICARE Plan: [facility] MEDICARE Product Type: P PO Service period from: 05/19/2013 to - Number visits used/authorized: [facility] PHYSICAL THERAPY EVALUATION- ORTHO SUBJECTIVE: History [...] new with i njury 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 (able to ariela y for 1 hour) [...] [facility] [place] [place] Treatment began: 1220 Treatment ended: 1300 This note is to serve as the discharge summary if Kevon fails to attend further Physical Th erapy appointments or contact the therapist regarding any change in their status. Alise [place], Pt [facility] THERAPY [address] Mailcode: [address] [address] documented in this encounter Plan of Treatment Not on filedocumented as of this encounter Procedures + +--------+ + + + | Procedure Name | Priori | Date/Time | Associated Diagnosis | Comments | | | ty | | | | + +--------+ + + + | MT THERAPEUTIC | Routin | 05/19/2013 | Shoulder pain | | | EXERCISES | e | 3:30 PM | | | | | | PDT | | | + +--------+ + + + | MT PHYS THERAPY | Routin | 05/19/2013 | [...]
--- OUTSIDE RECORDS SUMMARY | ~2018-07-16 | XMS | Encounter Summary ---
Demographics + + + | Address | [address] | | | [place] [address] | + + + | Home Phone [...] [place] | | | | | [address] | | + + + + + Care Team Providers + +------+ + | Care Rug Scratcher Name | Role | Phone | + [...] | | | 2011 | Event | [facility] | TEST DESK OPERATOR [address] | | | | | and Healing Surgery | [facility] | | | | | Center Admitting | [place], [place] | | | | | Desk Located on the | [address] | | | | | 4th floor [address] | [phone] | | | | | [address] [place], | | | | | | [place] [address] | | | +--------+ + + + [...] | Cannot be | | block ([facility], Single, I-Flow pump) | calculated | [...]
--- OUTSIDE RECORDS SUMMARY | ~2018-07-16 | XMS | Clinical Summary ---
Demographics + + + | Address | [address] | | | [place] [address] | + + + | Home Phone | | + + + | Preferred Language | Unknown | + + + | Marital Status | | + + + | Zoroastrianism Affiliation | Unknown | + + + | Race | Unknown | + + + | Ethnic Group | Unknown | + + + Author + + + | Author | [facility] | | | and [place] | + + + | Organization | [facility] | | | and [place] | [...] [place] | | | | | [address] | | + + + + + Care Team Providers + +------+ + | Care Automobile Upholstery Trim Installer Name | Role | Phone | [...] | [employer] | [employer] | [id number] | 02/09/19 | | | [employer] | [...] | | al/Fam | | 1941 | [phone] | [place] [address] | | | lyla | | | 7 (Home) | | + +--------+ +--------+ + + Advance Directives Patient has advance care planning documents on file. For more information, please contact:[facility] [place] [address]
--- OUTSIDE RECORDS SUMMARY | ~2018-07-16 | XMS | Encounter Summary ---
Demographics + + + | Address | [address] | | | [place] [address] | + + + | Home Phone [...] [place] | | | | | [address] | | + + + + + Care Team Providers + +------+ + | Care Stitching Machine Setter Name | Role | Phone [...] | | | | | THERAPY | [address] | for Health | | | | | REFERRAL | Phone: | and Healing, | | | | | | [phone] | 1st floor | | | | | | Fax: | [place], [place] | | | | | | [phone] | [address] | | | | | | | Phone: | | | | | | | [phone] | | | | | | | Fax: | | | | | | | [phone] | +--------+--------+ + + + + Encounter Details +--------+---------+ + + + | Date | Type | Department | Care Team | Description | +--------+---------+ + + + | 08/31/ | Office | [facility] Physical | Lena Rain, | Shoulder pain | | 2011 | Visit | Therapy Services at | PT [address] | (Primary Dx) | | | | [facility] | [address] | | | | | [address] | [place], [place] | | | | | Mailcode: CH3P | [address] | | | | | [facility] | | | | | | and Healing, 1st | | | | | | floor [facility] [place] | | | | | | [address] | | | | | | [phone] | | | +--------+---------+ + + + [...] documented as of this encounter Progress Notes AleexybingLena, PT - 09/01/2011 4:05 PM PDTFormatting of this note might be different fr om the original. [id number] KEVON WELCH Date of : 1940 Start [...] request that all cancellations be made at [facility] 24 hours in advance by calling [phone]. Our office is open 7am-6pm and there is a [employer] line 24 hours a day. Any appointment [...] [facility] [address] Mailcode: [address] [facility], 1st [facility] [address] documented in this e ncounter [...] | MO MANUAL THER | Routin | 09/01/2011 | Shoulder pain | | | TECH,1+GERHARD,EA 15 | e | 4:16 PM | | | | MIN | | PDT | | | + +--------+ + + + | [place] THERAPEUTIC | Routin | 09/01/2011 | Shoulder [...]
--- OUTSIDE RECORDS SUMMARY | ~2018-07-16 | XMS | Encounter Summary ---
Demographics + + + | Address | [address] | | | [place] [address] | + + + | Home Phone [...] [place] | | | | | [address] | | + + + + + Care Team Providers + +------+ + | Care Cap Sewer Name | Role | Phone | + [...] | | | | | THERAPY | [address] | for Health | | | | | REFERRAL | Phone: | and Healing, | | | | | | [phone] | 1st floor | | | | | | Fax: | [place], [place] | | | | | | [phone] | [address] | | | | | | | Phone: | | | | | | | [phone] | | | | | | | Fax: | | | | | | | [phone] | +--------+--------+ + + + + Encounter [...] [facility] | [address] | | | | | [address] | [place], [place] | | | | | Mailcode: CH3P | [address] | | | | | [facility] | | | | | | and Healing, 1st | | | | | | floor [facility] [place] | | | | | | [address] | | | | | | [phone] | | | +--------+---------+ + + + [...] might be different fr om the original. [id number] KEVON WELCH Date of : 1940 Start of care: 07/24/11 Date of onset:07/22/11 Referring/Attending Practitioner: Misael Myers MD . Primary/Referral Diagnosis/ICD-9: Encounter Diagnoses Name Primary? Shoulder pain Yes Insurance: Payor: ODS MEDICARE Plan: ODS MEDICARE Product Type: PPO Service period from: 07/24/11-08/23/11 Number visits used/authorized: 3 [facility] PHYSICAL THERAPY: [...] request that all cancellations be made at [facility] 24 hours in advance by calling [phone]. Our office is open 7am-6pm and there is a [employer]ebee ssage line 24 hours a day. Any [...] change in their status. LENA RAIN PT [facility] RE[facility]IL[facility] SERVICES AND HAND THERAPY [address] Mailcode: [address] And [facility], [address] [place] [address] documented in this e ncounter Plan of Treatment Not on filedocumented as of this encounter Procedures + +--------+ + + + | Procedure Name | Priori | Date/Time | Associated Diagnosis | Comments | | | ty | | | | + +--------+ + + + | MD MANUAL THER | Routin | 08/20/2011 | Shoulder pain | | | TECH,1+GERHARD,EA 15 | e | 12:40 PM | | | | MIN | | PDT | | | + +--------+ + + + | MD THERAPEUTIC | Routin | 08/20/2011 | Shoulder [...]
--- OUTSIDE RECORDS SUMMARY | ~2018-07-16 | XMS | Encounter Summary ---
Demographics + + + | Address | [address] | | | [place] [address] | + + + | Home Phone [...] [place] | | | | | [address] | | + + + + + Care Team Providers + +------+ + | Care Ui Developer With [employer] Name | Role | Phone | + [...] | | | | | THERAPY | [address] | for Health | | | | | REFERRAL | Phone: | and Healing, | | | | | | [phone] | 1st floor | | | | | | Fax: | [place], [place] | | | | | | [phone] | [address] | | | | | | | Phone: | | | | | | | [phone] | | | | | | | Fax: | | | | | | | [phone] | +--------+--------+ + + + + Encounter [...] [facility] | [address] | | | | | [address] | [place], [place] | | | | | Mailcode: CH3P | [address] | | | | | [facility] | | | | | | and Healing, 1st | | | | | | floor [facility] [place] | | | | | | [address] | | | | | | [phone] | | | +--------+---------+ + + + [...] PDTFormatting of this note might be different [facility] the original. [id number] KEVON WELCH Date of : 1940 Start of care: 02/13/2011 Date of onset: 12/24/2010 Referring/Attending Practitioner: Misael Myers MD . Primary/Referral Diagnosis/ICD-9: Encounter Diagnoses Name Primary? 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 PHILLY RAIN, PT [facility] AND HAND THERAPY [address] Mailcode: [facility], 1st [facility] [address] Philly Killian PT - 05/12/2011 9:14 AM PDT 04/28/11 PT Encounter Note: Kevon Welch 70 yrs, Male, 1940 PCP: DOYLE JOHNSON Ref: NO REFERRING PROVIDER PER PATIENT, Primary Ins.: ODS MEDI Pt seen briefly in [facility] by PT per Dr. Acevedo request: Not charged S: Pt undergoing PT at clinic in [place] 200 [place] from here; has been seen [...] modify RX as appropriate PHILLY RAIN PT [facility] [address] Mailcode: Ch12a [facility], 12th [facility] [address] + NEERS. + Telles, + Hornblowers [...] + | HI THERAPEUTIC | Routin | 05/15/2011 | Shoulder [...]
--- OUTSIDE RECORDS SUMMARY | ~2018-07-16 | XMS | Encounter Summary ---
Demographics + + + | Address | [address] | | | [place] [address] | + + + | Home Phone [...] [place] | | | | | [address] | | + + + + + Care Team Providers + +------+ + | Care Insole Taper Name | Role | Phone | + [...] | | | | Thoracic or | [address] | [place], [place] | | | | | lumbosacral | Phone: | [address] | | | | | neuritis or | [phone] | Phone: | | | | | radiculitis, | Fax: | [phone] | | | | | unspecified | [phone] | Fax: | | | | | | | [phone] | | | | | Degeneration | [...] | | | | [facility] | [facility] | Degeneration of | | | | [address] | Road [place], [place] | lumbar | | | | Mailcode: CH3P | [address] | intervertebral disc | | | | [facility] | | | | | | and Ned, 1st | | | | | | floor [place], [place] | | | | | | [address] | | | | | | [phone] | | | +--------+---------+ + + + [...] Dailey, PT - 12/25/2011 8:46 AM PST [id number] KEVON WELCH Date of : 1940 Start of care: 10/09/2011 Date of onset: 09/10/11 Referring/Attending Practitioner: Alcira Bocanegra PA ; Clara Fernandez/Referral Di agnosis/ICD-9: 722.10H Herniated lumbar intervertebral disc Insurance: Payor: ODS MEDICARE Plan: ODS MEDICARE Product Type: PPO Service period from: 12/25/2011 to: 01/23/12 Number visits used/authorized: 6/ Neurologist: Dr. Rafal Benites [facility] [address] [place] [address] (Office) Neurosurgeon: Sen Whitman [address] [place] [address] [facility] PH[facility] SUBJECTIVE Age: 71 y.o. [...] month ago. He was bending over to pepper picker a garden hose and felt increased [...] Social History: lives with Recreational Activities/Hobbies: plays [employer]; reading; does a lot of computer/keyboarding Functional [...] disectomy. 1x/month to accomadate long drive from [employer]. Treatment began: 830 Treatment ended: 915 This [...] + | SC THERAPEUTIC | Routin | 12/25/2011 | Herniated lumbar | | | EXERCISES | e | 9:41 AM | intervertebral disc | | | | | PST | Degeneration of | | | | | | lumbar | | | | | | intervertebral disc | | + +--------+ + + + | SC PHYS THERAPY | Routin | 12/25/2011 | [...]
--- OUTSIDE RECORDS SUMMARY | ~2018-07-16 | XMS | Encounter Summary ---
Demographics + + + | Address | [address] | | | [place] [address] | + + + | Home Phone [...] [place] | | | | | [address] | | + + + + + Care Team Providers + +------+ + | Care Script Manager Name | Role | Phone | [...] W | appointment | | | | [facility] | [address] | | | | | [address] | [place], [place] | | | | | Mailcode: [facility] | [address] | | | | | [facility] | | | | | | and Healing, 1st | | | | | | floor [place], [place] | | | | | | [address] | | | | | | [phone] | | | +--------+ + + + [...]
--- OUTSIDE RECORDS SUMMARY | ~2018-07-16 | XMS | Encounter Summary ---
Demographics + + + | Address | [address] | | | [place] [address] | + + + | Home Phone | | + + + | Preferred Language | Unknown | + + + | Marital Status | | + + + | Uatsdin Affiliation | NON | + + + [...] [place] | | | | | [address] | | + + + + + Care Team Providers + +------+ + | Care Snow Removal/Plowing Name | Role | Phone | + [...] + + | 07/21/ | Surgery | [facility] | Misael Myers MD | ARTHROSCOPIC | | 2011 | | [place] [facility] | [address] | SUBACROMIAL | | | | and Healing Surgery | [facility] | DECOMPRESSION; | | | | Center Admitting | [place], [place] | DISTAL CLAVICLE | | | | Desk Located on the | [address] | RESECTION AND | | | | 4th floor [address] | [phone] | POSSIBLE BICEPS | | | | [address] [place], | | [place] | | | | [place] [address] | | | +--------+---------+ + + + [...]
--- OUTSIDE RECORDS SUMMARY | ~2018-07-16 | XMS | Encounter Summary ---
Demographics + + + | Address | [address] | | | [place] [address] | + + + | Home Phone [...] [place] | | | | | [address] | | + + + + + Care Team Providers + +------+ + | Care Stereotype Molder Name | Role | Phone | + [...] | | shoulder | Provider Per | [address] | | | | | pain | Patient NO | Celestine Morales | | | | | | REFERRING | [address], | | | | | | PROVIDER PER | [place] | | | | | | [place] | [address] | | | | | | | Phone: | | | | | | | [phone] | | | | | | | Fax: | | | | | | | [phone] | +--------+--------+ + + + + Encounter Details +--------+---------+ + + + | Date | Type | Department | Care Team | Description | +--------+---------+ + + + | 06/29/ | Office | Orthopaedics at | Misael Myers MD | Shoulder pain | | 2011 | Visit | [facility] [address] | [address] | (Primary Dx) | | | | Ave Mailcode: CH12A | [address] | | | | | [facility] for [facility] | [place], [place] | | | | | and , | [address] | | | | | Floor [place], [place] | [phone] | | | | | [address] | | | | | | [phone] | | | +--------+---------+ + + + [...]
--- OUTSIDE RECORDS SUMMARY | ~2018-07-16 | XMS | Encounter Summary ---
Demographics + + + | Address | [address] | | | [place] [address] [...] [place] | | | | | [address] | | + + + + + Care Team Providers + +------+ + | Care Roll Scale Worker Name | Role | Phone | [...] | | | | | | | [address] | | | | | | | Celestine Morales | | | | | | | Dejan [place], | | | | | | | [place] | | | | | | | [address] | | | | | | | Phone: | | | | | | | [phone] | | | | | | | Fax: | | | | | | | [phone] | +--------+--------+ + + + + Encounter Details +--------+---------+ + + + | Date | Type | Department | Care Team | Description | +--------+---------+ + + + | 04/21/ | Office | Orthopaedics at | Misael Myers MD | Right shoulder pain, | | 2017 | Visit | [facility] [address] | [address] | unspecified | | | | Ave Mailcode: CH12A | [address] | chronicity (Primary | | | | Center for [facility] | [place], [place] | Dx) | | | | and Healing, | [address] | | | | | Floor [place], [place] | [phone] | | | | | [address] | | | | | | [phone] | | | +--------+---------+ + + + [...]
--- OUTSIDE RECORDS SUMMARY | ~2018-07-16 | XMS | Encounter Summary ---
Demographics + + + | Address | [address] | | | [place] [address] | + + + | Home Phone [...] [place] | | | | | [address] | | + + + + + Care Team Providers + +------+ + | Care Public Relations Coordinator Name | Role | Phone | [...] | | | | REFERRING | [address]jan [place], | | | | | | PROVIDER PER | [place] | | | | | | [place] | [address] | | | | | | | Phone: | | | | | | | [phone] | | | | | | | Fax: | | | | | | | [phone] | +--------+--------+ + + + + Encounter Details +--------+---------+ + + + | Date | Type | Department | Care Team | Description | +--------+---------+ + + + | 06/29/ | Office | Preoperative | Lida Houser, | Shoulder pain | | 2011 | Visit | Medicine Clinic at | ANP [address] | (Primary Dx); Other | | | | [facility] 4th Floor [address] | specified | | | | [address] | [place], [place] | pre-operative | | | | Code: [facility] | [address] | examination; NELY | | | | for Health and | [phone] | (obstructive sleep | | | | Healing,4th Floor | | apnea) | | | | [place], [place] | | | | | | [address] | | | | | | [phone] | | | +--------+---------+ + + + [...] perfume, lotions or powder. Remove any nail italian from at least one fingernail. Do not [...] Time: Someone from your surgeon's office or [facility] will provide you with information regarding your [...] it is after office hours, call the [facility] aqua ammonia operator at [phone] and ask them to page your doc [...] patient. Document will be s canned in [employer]. Current Medication List Name Sig IBUPROFEN 200 [...] contribute to this patient's care. BRADFORD ALVES [facility] PREADMIT CLINIC [facility] PREOPERATIVE MEDICINE CLINIC [address] [place] [address] [place] [address] Marilin Vang MA - 06/30/2011 2:19 PM PDT Nerve Block Home Pump Education: Total time spent during clinic visit in patient education 15 minutes. [facility] Department of Anesthesia, Regional Anesthesia patient [...] + +--------+ + + + | ID COLLECTION VENOUS | Routin | 06/30/2011 | [...] view image for the detailed interpretation from [facility] results. | CARDIOLOGY | + + + + + + + + | Performing | Address | City/State/Zipcode | Phone Number | | Organization | | | | + + + + + | [facility] | [address] | [place], [place] | | | CARDIOLOGY | [address] | [address] | | + + + + + [...] | + + + + + | [facility] DEPARTMENT OF | [address] | [place] [address] | | | PATHOLOGY | [address] [...]
--- OUTSIDE RECORDS SUMMARY | ~2018-07-16 | XMS | Encounter Summary ---
Demographics + + + | Address | [address] | | | [place] [address] | + + + | Home Phone [...] [place] | | | | | [address] | | + + + + + Care Team Providers + +------+ + | Care Inspector Packer [employer] Container Name | Role | Phone | + [...] | | | | | PHYSICAL | [facility] [place] | [facility] | | | | | THERAPY | [address] | for Health | | | | | REFERRAL | Phone: | and Healing, | | | | | | [phone] | 1st floor | | | | | | Fax: | [place], [place] | | | | | | [phone] | [address] | | | | | | | Phone: | | | | | | | [phone] | | | | | | | Fax: | | | | | | | [phone] | +--------+--------+ + + + + Encounter [...] [facility] | [address] | | | | | [address] | [place], [place] | | | | | Mailcode: CH3P | [address] | | | | | [facility] | | | | | | and Healing, 1st | | | | | | floor [facility] [place] | | | | | | [address] | | | | | | [phone] | | | +--------+---------+ + + + [...] might be different fr om the original. [id number] KEVON WELCH Date of : 1940 Start [...] change in their status. LENA RAIN, PT [facility] AND HAND THERAPY [address] Mailcode: [address] And [facility], 1st Floor [facility] [address] documented in this e ncounter Plan of Treatment Not on filedocumented as of this encounter Procedures + +--------+ + + + | Procedure Name | Priori | Date/Time | Associated Diagnosis | Comments | | | ty | | | | + +--------+ + + + | OH THERAPEUTIC | Routin | 05/29/2011 | Shoulder pain | | | ACTIVITIES | e | 3:47 PM | | | | | | PDT | | | + +--------+ + + + | OH MANUAL THER | Routin | 05/29/2011 | Shoulder pain | | | TECH,1+REGIONS,EA 15 | e | 3:47 PM | | | | MIN | | PDT | | | + +--------+ + + + | OH THERAPEUTIC | Routin | 05/29/2011 | Shoulder [...]
--- OUTSIDE RECORDS SUMMARY | ~2018-07-16 | XMS | Encounter Summary ---
Demographics + + + | Address | [address] | | | [place] [address] | + + + | Home Phone [...] [place] | | | | | [address] | | + + + + + Care Team Providers + +------+ + | Care Test Pilot Name | Role | Phone | [...] | | | | | THERAPY | [facility] [place] | for Health | | | | | REFERRAL | [address] | and Healing, | | | | | | Phone: | 1st floor | | | | | | [phone] | [facility] [place] | | | | | | Fax: | [address] | | | | | | [phone] | Phone: | | | | | | | [phone] | | | | | | | Fax: | | | | | | | [phone] | +--------+--------+ + + + + Encounter [...] disc; | | | | [facility] | [address] | 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 [id number] KEVON WELCH Date of : 1940 Start of care: 10/09/2011 Date of onset: 09/10/11 Referring/Attending Practitioner: Alcira Bocanegra PA . Primary/Referral Diagnosis/ICD-9: 722.10H Herniated lumbar intervertebral disc Insurance: Payor: ODS MEDICARE Plan: ODS MEDICARE Product Type: PPO Service period from: 10/09/2011 to: 11/08/11 Number visits used/authorized: 5/ Neurologist: Dr. Lyles [facility] [address] [place] [address] (Office) [facility] PHYSICAL THERAPY SUBJECTIVE Age: 71 y.o. [...] Social History: lives with Recreational Activities/Hobbies: plays [employer]; reading; does a lot of computer/keyboarding Functional [...] in their status. LENA RAIN PT [facility]ABIL[facility] SERVICES AND HAND THERAPY [address] Mailcode: [facility], [address] [place] [address] documented in this e ncounter Plan of Treatment Not on filedocumented as of this encounter Procedures + +--------+ + + + | Procedure Name | Priori | Date/Time | Associated Diagnosis | Comments | | | ty | | | | + +--------+ + + + | GA THERAPEUTIC | Routin | 10/23/2011 | Herniated [...]
--- OUTSIDE RECORDS SUMMARY | ~2018-07-16 | XMS | Encounter Summary ---
Demographics + + + | Address | [address] | | | [place] [address] | + + + | Home Phone [...] [place] | | | | | [address] | | + + + + + Care Team Providers + +------+ + | Care Cloth Worker Name | Role | Phone | [...] | | | | | THERAPY | [address] | for Health | | | | | REFERRAL | Phone: | and Healing, | | | | | | [phone] | 1st floor | | | | | | Fax: | [place], [place] | | | | | | [phone] | [address] | | | | | | | Phone: | | | | | | | [phone] | | | | | | | Fax: | | | | | | | [phone] | +--------+--------+ + + + + Encounter [...] | | [facility] | [address] | | | | | [address] | [place], [place] | | | | | Mailcode: CH3P | [address] | | | | | [facility] | | | | | | and Healing, 1st | | | | | | floor [facility] [place] | | | | | | [address] | | | | | | [phone] | | | +--------+---------+ + + + [...] might be different fr om the original. [id number] KEVON WELCH Date of : 1940 Start of care: 07/24/11 Date of onset:07/22/11 Referring/Attending Practitioner: iMsael Myers MD . Primary/Referral Diagnosis/ICD-9: Encounter Diagnoses Name Primary? Shoulder pain Yes Insurance: Payor: ODS MEDICARE Plan: ODS MEDICARE Product Type: PPO Service period from: 07/24/11-08/23/11 Number visits used/authorized: 2 [facility] PHYSICAL THERAPY: Post-op SHOULDER POST OP DAY [...] weeks Treatment began: 1345 Treatment ended: 1420; [phone] for game ready Reviewed cancel/no show policy with patient. Pt voiced understanding. "At times we understand you must cancel. We request that all cancellations be made at [facility] t 24 hours in advance by calling [phone]. Our office is open 7am-6pm and there is a [employer]ge line 24 hours a day. Any appointment [...] change in their status. LENA RAIN PT [facility] REHABIL[facility]ATION SERVICES AND HAND THERAPY [address] Mailcode: [address] [facility], [address] [place] [address] documented in this e ncounter Plan of Treatment Not on filedocumented as of this encounter Procedures + +--------+ + + + | Procedure Name | Priori | Date/Time | Associated Diagnosis | Comments | | | ty | | | | + +--------+ + + + | MN MANUAL THER | Routin | 08/05/2011 | Shoulder pain | | | TECH,1+REGIONS,EA 15 | e | 4:04 PM | | | | MIN | | PDT | | | + +--------+ + + + | MN THERAPEUTIC | Routin | 08/05/2011 | Shoulder [...]
--- OUTSIDE RECORDS SUMMARY | ~2018-07-16 | XMS | Encounter Summary ---
Demographics + + + | Address | [address] | | | [place] [address] | + + + | Home Phone [...] [place] | | | | | [address] | | + + + + + Care Team Providers + +------+ + | Care Wood Barker Name | Role | Phone | + [...] | | | 2011 | Event | [facility] | REFINERY OPERATOR LIGHT ENDS RECOVERY [address] | | | | | and Healing Surgery | [facility] | | | | | Center Admitting | [place], [place] | | | | | Desk Located on the | [address] | | | | | 4th floor [address] | [phone] | | | | | [address] [place], | | | | | | [place] [address] | | | +--------+ + + + [...] nerve | Cannot be | | block ([facility], Single, I-Flow pump) | calculated | [...]
--- OUTSIDE RECORDS SUMMARY | ~2018-07-16 | XMS | Encounter Summary ---
Demographics + + + | Address | [address] | | | [place] [address] | + + + | Home Phone [...] [place] | | | | | [address] | | + + + + + Care Team Providers + +------+ + | Care Manager Intermediate Name | Role | Phone | + [...] | | shoulder | Provider Per | [address] | | | | | pain | Patient NO | Celestine Morales | | | | | | REFERRING | Dejan Onofre | | | | | | PROVIDER PER | [place] | | | | | | [place] | [address] | | | | | | | Phone: | | | | | | | [phone] | | | | | | | Fax: | | | | | | | [phone] | +--------+--------+ + + + + Encounter Details +--------+---------+ + + + | Date | Type | Department | Care Team | Description | +--------+---------+ + + + | 06/29/ | Office | Orthopaedics at | Katty Chairez PA | Other specified | | 2011 | Visit | [facility] [address] | [address] | pre-operative | | | | Ave Mailcode: CH12A | [place], [place] | examination (Primary | | | | [place] [facility] | [address] | Dx) | | | | and Healing, 12th | [phone] | | | | | Floor [place], [place] | | | | | | [address] | | | | | | [phone] | | | +--------+---------+ + + + [...] place on the hill at the [facility]: Surgeries scheduled in the [facility] (4 North): registration is located on the 4th floor of [facility] (Day Surgery). Surgeries scheduled in the [facility]: registration is located on the 9th floor. Surgeries scheduled in [facility]: registration is located on the 6th floor. Surgeries scheduled in the [facility]: registration is located i n the [facility] on the first floor. For surgeries scheduled to take place at the [place] [facility]: registration is l [...] If you use specialized medical equipment at [facility], please check with your provider before bringing [...]
--- OUTSIDE RECORDS SUMMARY | ~2018-07-16 | XMS | Encounter Summary ---
Demographics + + + | Address | [address] | | | [place] [address] | + + + | Home Phone [...] [place] | | | | | [address] | | + + + + + Care Team Providers + +------+ + | Care Wing Coverer Name | Role | Phone | [...] | | | | | PHYSICAL | [facility] [place] | [facility] | | | | | THERAPY | [address] | for Health | | | | | REFERRAL | Phone: | and Healing, | | | | | | [phone] | 1st floor | | | | | | Fax: | [place], [place] | | | | | | [phone] | [address] | | | | | | | Phone: | | | | | | | [phone] | | | | | | | Fax: | | | | | | | [phone] | +--------+--------+ + + + + Encounter [...] [facility] | [address] | | | | | [address] | [place], [place] | | | | | Mailcode: CH3P | [address] | | | | | [facility] | | | | | | and Healing, 1st | | | | | | floor [facility] [place] | | | | | | [address] | | | | | | [phone] | | | +--------+---------+ + + + [...] this note might be different [facility] the original. [id number] KEVON WELCH Date of : 1940 Start of care: 02/13/2011 Date of onset: 12/24/2010 Referring/Attending Practitioner: Misael Myers MD . Primary/Referral Diagnosis/ICD-9: Encounter Diagnoses Name Primary? 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 PHILLY RAIN, PT [facility]ABIL[facility]ATION SERVICES AND HAND THERAPY [address] Mailcode: [facility], 1st [facility] [address] Philly Killian PT - 05/12/2011 9:14 AM PDT 04/28/11 PT Encounter Note: Kevon Welch 70 yrs, Male, 1940 PCP: DOYLE JOHNSON Ref: NO REFERRING PROVIDER PER PATIENT, Primary Ins.: ODS MEDI Pt seen briefly in [facility] by PT per Dr. Acevedo request: Not charged S: Pt undergoing PT at clinic in [place] 200 [place] from here; has been seen [...] modify RX as appropriate PHILLY RAIN PT [facility] [address] Mailcode: Ch[facility], 12th [facility] [address] + NEERS. + Telles, + Hornblowers [...] + | [place] THERAPEUTIC | Routin | 05/15/2011 | Shoulder [...]
--- OUTSIDE RECORDS SUMMARY | ~2018-07-16 | XMS | Encounter Summary ---
Demographics + + + | Address | [address] | | | [place] [address] | + + + | Home Phone [...] [place] | | | | | [address] | | + + + + + Care Team Providers + +------+ + | Care Lobbyist Name | Role | Phone | + [...] 2011 | | Pain Center at | SHANK SORTER [address] | patient initiated) | | | | [facility] | [place], [place] | | | | | [address] | [address] | | | | | Mail Code: [facility] | [phone] | | | | | [facility] | | | | | | and | | | | | | Floor [place], [place] | | | | | | [address] | | | | | | [phone] | | | +--------+ + + + [...]
--- OUTSIDE RECORDS SUMMARY | ~2018-07-16 | XMS | Encounter Summary ---
Demographics + + + | Address | [address] | | | [place] [address] | + + + | Home Phone [...] [place] | | | | | [address] | | + + + + + Care Team Providers + +------+ + | Care Competitive Athlete Name | Role | Phone | + [...] | | | | | PHYSICAL | [facility] [place] | [facility] | | | | | THERAPY | [address] | for Health | | | | | REFERRAL | Phone: | and Healing, | | | | | | [phone] | 1st floor | | | | | | Fax: | [place], [place] | | | | | | [phone] | [address] | | | | | | | Phone: | | | | | | | [phone] | | | | | | | Fax: | | | | | | | [phone] | +--------+--------+ + + + + Encounter [...] | [facility] | [address] | | | | | [address] | [place], [place] | | | | | Mailcode: CH3P | [address] | | | | | [facility] | | | | | | and Healing, 1st | | | | | | floor [facility] [place] | | | | | | [address] | | | | | | [phone] | | | +--------+---------+ + + + [...] might be different fr om the original. [id number] KEVON WELCH Date of : 1940 Start [...] request that all cancellations be made at [facility] 24 hours in advance by calling [phone]. Our office is open 7am-6pm and there [...] change in their status. LENA RAIN PT [facility] RE[facility]ABIL[facility] AND HAND THERAPY [address] Mailcode: [address], 1st [facility] [address] documented in this e ncounter [...]
--- OUTSIDE RECORDS SUMMARY | ~2018-07-16 | XMS | Encounter Summary ---
Demographics + + + | Address | [address] | | | [place] [address] | + + + | Home Phone [...] [place] | | | | | [address] | | + + + + + Care Team Providers + +------+ + | Care Operations And Maintenance Specialist Name | Role | Phone | [...] | | sprain | REFERRING | [address] [place], | | | | | Osteoarthros | PROVIDER PER | [place] | | | | | [place], | [place] | [address] | | | | | unspecified | | Phone: | | | | | whether | | [phone] | | | | | generalized | | Fax: | | | | | or | | [phone] | | | | | localized, | [...] | | | | | | | DYE MAKER | | | | | | | [place] SHLDR | | | | | | | ARTHROSCOP,P | | | | | | | ART | | | | | | | ACROMIOPLAS | | | | | | | W/CORACOACRO | | | | | | | M [place] SHLDR | | | | | | | ARTHROSCOP,S | | | | | | | URG,DIS | | | | | | | CLAVICULECTO | | | | | | | MY [place] | | | | | | [...] | | | Ave Mailcode: CH12A | [place], [place] | | | | | [facility] | [address] | | | | | and [facility] | [phone] | | | | | Floor [place], [place] | | | | | | [address] | | | | | | [phone] | | | +--------+---------+ + + + [...]
--- OUTSIDE RECORDS SUMMARY | ~2018-07-16 | XMS | Encounter Summary ---
Demographics + + + | Address | [address] | | | [place] [address] | + + + | Home Phone [...] [place] | | | | | [address] | | + + + + + Care Team Providers + +------+ + | Care Clothing Consultant Name | Role | Phone | [...] | | | | | THERAPY | [place], [place] | for Health | | | | | REFERRAL | [address] | and Healing, | | | | | | Phone: | 1st floor | | | | | | [phone] | [place], [place] | | | | | | Fax: | [address] | | | | | | [phone] | Phone: | | | | | | | [phone] | | | | | | | Fax: | | | | | | | [phone] | +--------+--------+ + + + + Reason [...] | | | sprain | REFERRING | Djean Onofre | | | | | Osteoarthros | PROVIDER PER | [place] | | | | | is, | [place] | [address] | | | | | unspecified | | Phone: | | | | | whether | | [phone] | | | | | generalized | | Fax: | | | | | or | | [phone] | | | | | localized, | [...] | | | | | | | IRON AND STEEL WORK SUPERVISOR | | | | | | | [place] SHLDR | | | | | | | ARTHROSCOP,P | | | | | | | ART | | | | | | | ACROMIOPLAS | | | | | | | W/CORACOACRO | | | | | | | M [place] SHLDR | | | | | | | ARTHROSCOP,S | | | | | | | URG,DIS | | | | | | | CLAVICULECTO | | | | | | | MY [place] | | | | | | | [...] | [facility] [address] | [address] | (Primary Dx) | | | | Ave Mailcode: CH12A | [facility], | | | | | [facility] | [place] [address] | | | | | and Healing, | [phone] | | | | | Floor [place], [place] | | | | | | [address] | | | | | | [phone] | | | +--------+---------+ + + + [...]
--- OUTSIDE RECORDS SUMMARY | ~2018-07-16 | XMS | Encounter Summary ---
Demographics + + + | Address | [address] | | | [place] [address] | + + + | Home Phone [...] [place] | | | | | [address] | | + + + + + Care Team Providers + +------+ + | Care Tack Coverer Name | Role | Phone | [...] | | | | | THERAPY | [place], [place] | for Health | | | | | REFERRAL | [address] | and Healing, | | | | | | Phone: | 1st floor | | | | | | [phone] | [place], [place] | | | | | | Fax: | [address] | | | | | | [phone] | Phone: | | | | | | | [phone] | | | | | | | Fax: | | | | | | | [phone] | +--------+--------+ + + + + Reason [...] | | | [place], | [place] | [address] | | | | | unspecified | | Phone: | | | | | whether | | [phone] | | | | | generalized | | Fax: | | | | | or | | [phone] | | | | | localized, | [...] | | | | | | | RADIO ARTIST | | | | | | | [place] SHLDR | | | | | | | ARTHROSCOP,P | | | | | | | ART | | | | | | | ACROMIOPLAS | | | | | | | W/CORACOACRO | | | | | | | M [place] SHLDR | | | | | | | ARTHROSCOP,S | | | | | | | URG,DIS | | | | | | | CLAVICULECTO | | | | | | | MY [place] | | | | | | | [...] Visit | [facility] [address] | [address] | (Primary Dx) | | | | Ave Mailcode: CH12A | [facility]en [facility], | | | | | [facility] | [place] [address] | | | | | and Healing, | [phone] | | | | | Floor [place], [place] | | | | | | [address] | | | | | | [phone] | | | +--------+---------+ + + + [...]
--- OUTSIDE RECORDS SUMMARY | ~2018-07-16 | XMS | Encounter Summary ---
Demographics + + + | Address | 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
--- OUTSIDE RECORDS SUMMARY | ~2018-07-16 | XMS | Encounter Summary ---
Demographics + + + | Address | [address] | | | [place] [address] | + + + | Home Phone [...] [place] | | | | | [address] | | + + + + + Care Team Providers + +------+ + | Care Traveler Changer Name | Role | Phone | + [...] | | | | | THERAPY | [place], [place] | for Health | | | | | REFERRAL | [address] | and Healing, | | | | | | | 1st floor | | | | | | | [place], [place] | | | | | | | [address] | | | | | | | Phone: | | | | | | | [phone] | | | | | | | Fax: | | | | | | | [phone] | +--------+--------+ + + + + Encounter Details +--------+---------+ + + + | Date | Type | Department | Care Team | Description | +--------+---------+ + + + | 08/18/ | Office | [place] Physical | Rupesh, | Shoulder pain, right | | 2013 | Visit | Therapy Services at | lAise, PT [address] | (Primary Dx) | | | | [facility] | [address] | | | | | [address] | [place], [place] | | | | | Mailcode: [facility] | [address] | | | | | [facility] | | | | | | and Healing, 1st | | | | | | floor [place], [place] | | | | | | [address] | | | | | | [phone] | | | +--------+---------+ + + + [...] might be different from the o prabhainal. [id number] KEVON WELCH Date of : 1940 Start of care: 05/19/2013 Date of onset: 03/21/2013 Referring/Attending Practitioner: Misael Myers Primary/Referral Diagnosis/ICD-9: Shoulder pain, right (primary encounter diagnosis) Insurance: Payor: [employer] MEDICARE Plan: [employer] MEDICARE Product Type: P PO Service period from: 05/19/2013 to 01/18/2014 Number visits used/authorized: 06/20 [facility] PHYSICAL THERAPY TREATMENT [...] Right 07/20/2013 Right 08/11/2013 Flexion 141 155 [id number]* [id number] Pre 125* Post 140 Abduction 146 150 [id number]* [id number] Pre 95* Post 132 ER at 90 [...] home exercise program as pt lives in [facility] for posterior do minant shoulder strength Frequency/Duration: Follow up prn due to pt living in [facility], [place] Treatment began: 1031 am [...] in the student's note. Alise [place], PT [facility] REHABILITATION SERVICES AND HAND THERAPY [address] Mailcode: [place] [address] documented in this encounter Plan of Treatment Not on filedocumented as of this encounter Procedures + +--------+ + + + | Procedure Name | Priori | Date/Time | Associated Diagnosis | Comments | | | ty | | | | + +--------+ + + + | [place] MANUAL THER | Routin | 08/18/2013 | Shoulder pain, | | | TECH,1+REGIONS,EA 15 | e | 6:01 PM | right | | | MIN | | PDT | | | + +--------+ + + + | [place] THERAPEUTIC | Routin | 08/18/2013 | Shoulder [...]
--- OUTSIDE RECORDS SUMMARY | ~2018-07-16 | XMS | Encounter Summary ---
Demographics + + + | Address | [address] | | | [place] [address] | + + + | Home Phone [...] [place] | | | | | [address] | | + + + + + Care Team Providers + +------+ + | Care Philosophy Instructor Name | Role | Phone | [...] + + | 07/21/ | Hospital | [facility] | Misael Myers MD | | | 2011 | Encounter | [address] | [address] | | | | | [facility] | [facility] | | | | | FOR HEALTH AND | [place], [place] | | | | | [facility], | [address] | | | | | [place] [address] | [phone] | | | | | [phone] | | | +--------+ + + + [...] documented in this encounter Discharge Instructions Instructions Brtita Etienne RN - 07/22/2011General Discharge Instructions for [...]
--- OUTSIDE RECORDS SUMMARY | ~2018-07-16 | XMS | Encounter Summary ---
Demographics + + + | Address | [address] | | | [place] [address] | + + + | Home Phone [...] [place] | | | | | [address] | | + + + + + Care Team Providers + +------+ + | Care Station Engineer Name | Role | Phone | [...] intervertebral disc | | | | [facility] | [facility] | (Primary Dx) | | | | [address] | Road [place], [place] | | | | | Mailcode: [facility] | [address] | | | | | [facility] | | | | | | and Healing, [facility] | | | | | | floor [place], [place] | | | | | | [address] | | | | | | [phone] | | | +--------+---------+ + + + [...] Dailey, PT - 10/10/2011 1:41 PM PDT [id number] KEVON WELCH Date of : 1940 Start of care: 10/09/2011 Date of onset: 09/10/11 Referring/Attending Practitioner: Alcira Bocanegra PA . Primary/Referral Diagnosis/ICD-9: 722.10H Herniated lumbar intervertebral disc Insurance: Payor: ODS MEDICARE Plan: ODS MEDICARE Product Type: PPO Service period from: 10/09/2011 to: 11/08/11 Number visits used/authorized: 1/ Neurologist: Dr. Rafal Benites [address] [address] (Office) [facility] PHYSICAL THERAPY SUBJECTIVE Age: 71 y.o. Sex: male Chief complaint: Today's report: 03/21. Walking. Foot drop. 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 No lying on stomach since 8 years o ld due to back pain History of Presenting Problems: Kevon Welch is a 71 y.o. male with c/o LBP that began about a month ago. He was bending over to peanut picker a garden hose and felt increased [...] + | [place] THERAPEUTIC | Routin | 10/10/2011 | Herniated [...]
--- OUTSIDE RECORDS SUMMARY | ~2018-07-16 | XMS | Encounter Summary ---
Demographics + + + | Address | [address] | | | [place] [address] | + + + | Home Phone [...] [place] | | | | | [address] | | + + + + + Care Team Providers + +------+ + | Care Emergency Department Rn Name | Role | Phone | + [...] + + | 07/21/ | Surgery | [facility] | Misael Myers MD | ARTHROSCOPIC | | 2011 | | [place] [facility] | [address] | SUBACROMIAL | | | | and Healing Surgery | [facility] | DECOMPRESSION; | | | | Center Admitting | [place], [place] | DISTAL CLAVICLE | | | | Desk Located on the | [address] | RESECTION AND | | | | 4th floor [address] | [phone] | [address] | | | | [address] [place], | | [place] | | | | [place] [address] | | | +--------+---------+ + + + [...]
--- OUTSIDE RECORDS SUMMARY | ~2018-07-16 | XMS | Encounter Summary ---
Demographics + + + | Address | [address] | | | [place] [address] | + + + | Home Phone [...] [place] | | | | | [address] | | + + + + + Care Team Providers + +------+ + | Care Director Automotive Name | Role | Phone | + [...] | | | | | THERAPY | [address] | for Health | | | | | REFERRAL | Phone: | and Healing, | | | | | | [phone] | 1st floor | | | | | | Fax: | [place], [place] | | | | | | [phone] | [address] | | | | | | | Phone: | | | | | | | [phone] | | | | | | | Fax: | | | | | | | [phone] | +--------+--------+ + + + + Encounter [...] | [facility] | [address] | | | | | [address] | [place], [place] | | | | | Mailcode: CH3P | [address] | | | | | [facility] | | | | | | and Healing, 1st | | | | | | floor [facility] [place] | | | | | | [address] | | | | | | [phone] | | | +--------+---------+ + + + [...] might be different fr om the original. [id number] KEVON WELCH Date of : 1940 Start [...] that all cancellations be made at [facility] 24 hours in advance by calling [phone]. Our office is open 7am-6pm and there [...] THERAPY [address] Mailcode: [address], [address] [facility] [address] documented in this e ncounter Plan of Treatment Not on filedocumented as of this encounter Procedures + +--------+ + + + | Procedure Name | Priori | Date/Time | Associated Diagnosis | Comments | | | ty | | | | + +--------+ + + + | [place] MANUAL THER | Routin | 08/20/2011 | Shoulder pain | | | TECH,1+REGIONS,EA 15 | e | 1:04 PM | | | | MIN | | PDT | | | + +--------+ + + + | [place] THERAPEUTIC | Routin | 08/20/2011 | Shoulder [...]
--- OUTSIDE RECORDS SUMMARY | ~2018-07-16 | XMS | Encounter Summary ---
Demographics + + + | Address | [address] | | | [place] [address] | + + + | Home Phone [...] [place] | | | | | [address] | | + + + + + Care Team Providers + +------+ + | Care Executive Creative Director Name | Role | Phone | [...] | | | | | THERAPY | [place], [place] | for Health | | | | | REFERRAL | [address] | and Healing, | | | | | | | 1st floor | | | | | | | [place], [place] | | | | | | | [address] | | | | | | | Phone: | | | | | | | [phone] | | | | | | | Fax: | | | | | | | [phone] | +--------+--------+ + + + + Encounter Details +--------+---------+ + + + | Date | Type | Department | Care Team | Description | +--------+---------+ + + + | 05/19/ | Office | [facility] Physical | Rupesh, | Shoulder pain | | 2013 | Visit | Therapy Services at | Alise, PT [address] | (Primary Dx) | | | | [facility] | [address] | | | | | [address] | [place], [place] | | | | | Mailcode: CH3P | [address] | | | | | [facility] | | | | | | and Ned, 1st | | | | | | floor [place], [place] | | | | | | [address] | | | | | | [phone] | | | +--------+---------+ + + + [...] Washington, PT - 05/19/2013 12:23 PM PDT [id number] KEVON WELCH Date of : 1940 Start of care: 05/19/2013 Date of onset: 03/21/2013 Referring/Attending Practitioner: Misael Myers Primary/Referral Diagnosis/ICD-9: Shoulder pain (primary encounter diagnosis) Insurance: Payor: [employer] ODS MEDICARE Plan: The [employer] MEDICARE Product Type: P PO Service period from: 05/19/2013 to - Number visits used/authorized: [facility] PHYSICAL THERAPY EVALUATION- ORTHO SUBJECTIVE: History [...] new with i njury 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 Alise Washington, Pt [facility] REHABILITATION SERVICES AND HAND THERAPY [address] Mailcode: [address] [address] documented in this encounter Plan of Treatment Not on filedocumented as of this encounter Procedures + +--------+ + + + | Procedure Name | Priori | Date/Time | Associated Diagnosis | Comments | | | ty | | | | + +--------+ + + + | [place] THERAPEUTIC | Routin | 05/19/2013 | Shoulder pain | | | EXERCISES | e | 3:30 PM | | | | | | PDT | | | + +--------+ + + + | [place] PHYS THERAPY | Routin | 05/19/2013 | [...]
--- OUTSIDE RECORDS SUMMARY | ~2018-07-16 | XMS | Encounter Summary ---
Demographics + + + | Address | [address] | | | [place] [address] | + + + | Home Phone [...] [place] | | | | | [address] | | + + + + + Care Team Providers + +------+ + | Care House Piping Inspector Name | Role | Phone | [...] | 2017 | Encounter | Lab at [facility] [address] | [address] | | | | [address] Mailcode: [address] | | | | | [facility] | [place], [place] | | | | | Health and [facility], | [address] | | | | | 3rd Floor [place], | [phone] | | | | | [place] [address] | | | | | | [phone] | | | +--------+ + + + [...]
[~2018-07-16 03:46] MED LIST changes: +DILAUDID4 MG PO
--- NOTE | 2018-07-16 06:45 | NUR ---
TELEPHONE REPORT RECEIVED FROM SELF DEFENSE INSTRUCTOR BRITTNI. AWAITING PT'S ARRIVAL.
--- NOTE | 2018-07-16 06:50 | NUR ---
PT ARRIVED VIA STRETCHER. RR ARE EVEN AND NONLABORED. PT IS ACCOMPANIED BY . HE HAD AN EPISODE OF EMESIS BUT JUST HAD ZOFRAN IN THE ED. PT IS ORIENTED TO THE ROOM AND TUCKED INTO BED. LUIZ CORTEZ IS TAKING VS AND PT DENIES NEEDS AT THIS TIME. CALL LIGHT IS CLOSE.
--- NOTE | 2018-07-16 07:47 | NUR ---
RECIEVED BEDSIDE REPORT FROM AZIZA BENTON. PT SLEEPING SOUNDLY. PT JUST ARRIVED TO FLOOR AT SHIFT CHANGE. ADVISED PT CAN HAVE NO FOOD OR DRINK. PT VERBALIZED UNDERSTANDING.
--- NOTE | 2018-07-16 08:30 | NUR ---
PT WITH NAUSEA AND VOMITTING. HOB ELEVATED TO 90 DEGREES. EMISIS BAG PROVIDED. DR DAVIS CALLED FOR MEDICAITON ORDERS. TELEPHONE ORDER OF 8MG ZOFRAN IV Q6P AND PHENERGAN 12.5MG Q6P TAKEN. READ BACK TO VERIFY. ORDERS PLACED. ZOFRAN ADMINSTERED.
--- NOTE | 2018-07-16 11:50 | NUR ---
PT AWAKE AND ALERT IN BED. DR DAVIS IS IN ROOM WITH PT AND HIS SPOUSE. NO ADDITIONAL EPISODES OF EMISIS.
--- NOTE | 2018-07-16 13:13 | NUR ---
PT IS RESTING. NO CONCERNS AT THIS TIME.
--- NOTE | 2018-07-16 14:11 | NUR ---
PT SLEEPING WHEN RN WENT IN ROOM. DID NOT WAKE RN CHANGED FLUID BAG. PT APPEARS COMFORTABLE.
--- NOTE | 2018-07-16 15:05 | NUR ---
I ASKED PATIENT IF HE WOULD LIKE TO TAKE A SHOWER TODAY AND HE SAID YES BUT HE WANTS TO WAIT FOR HIS . I DID GET SET HIM FOR HIS SHOWER WILL GO BACK IN AND SEE IF HIS IS HERE.
--- NOTE | 2018-07-16 18:09 | NUR ---
PT CONTINUES TO HAVE INTERMINTENT BOUTS OF NAUSEA AND EMESIS. ZOFRAN IS EFFECTIVE. PT REMAINS NPO WITH ORAL CARE. VOIDING WELL, NEEDS URINE SAMPLE. PT DENIES PAIN, HAS BEEN RESTING MOST OF SHIFT. REMAINS ON ROOM AIR. IVF RUNNING.
--- NOTE | 2018-07-16 18:17 | NUR ---
PATIENT TOOK A SHOWER ASSITED BY HIS . KNOCKED FIRST WENT IN TO CHECK HOW THEY WERE DOING. AND HE WAS ALREADY IN BED. I CLEANED UP THE TOWELS ON THE FLOOR.
--- NOTE | 2018-07-16 19:15 | NUR ---
BEDSIDE REPORT. PT PARTICIPATED. C/O NAUSEA. TREATED WITH ZOFRAN.
--- NOTE | 2018-07-16 19:30 | NUR ---
CHARGE NURSE ROUNDING NOTE:. RESTING, EYES CLOSED, NO RESP DISTRESS, AWAKENS EASILY. FLUIDS AND CALL LIGHT AT BEDSIDE, NO N/V AT THIS TIME
--- NOTE | 2018-07-16 23:12 | NUR ---
PT C/O PAIN 9/10 ACHING IN ABDOMEN. ADMINISTERED MEDICATION FOR RELIEFE
--- NOTE | 2018-07-17 00:58 | NUR ---
PT RESTING WITH EYES CLOSED. NO SIGNS OF DISTRESS OR DISCOMFORT. CALL LIGHT IN REACH. EMISIS BAG IN REACH
--- NOTE | 2018-07-17 03:58 | NUR ---
PT IN BED RESTING WITH EYES CLOSED. HOB ELEVATED TO 90. NO SIGNS OF DISTRESS, NO C/O N/V. IV RUNING @125, NPO. CALL LIGHT IN REACH
--- NOTE | 2018-07-17 04:23 | NUR ---
PT HAD 2 EPISODED OF VOMITING BETWEEN 300-350ML DARK GREEN CONTENTS. PT REPORTED PAIN 3/10 AFTER VOMIT DESCRIBED "BURNING IN THE THROAT". MEDICATED WITH DILUADID. PT CAN FEEL NAUSEA AND NOTIFY RN FOR EARLY MEDICATION THERAPY. PT RECIEVED ZOFRAN 193 AND PHENERGAN 2142, NO N/V SINCE. NPO, WITH 125 LR IN LEFT WRIST. HOB ELEVEATED TO 90 DEGRES SEEMS TO HELP PT GET RELIEFE. URINE SAMPLE OBTAINED AND SENT TO LAB. SCD PLACED UO 325 QS.
--- NOTE | 2018-07-17 05:59 | NUR ---
pt up to restroom. calls appropriately. noted some indegestion, burps, and deep hiccups. pt requested to go back to bed to rest.
--- NOTE | 2018-07-17 07:36 | NUR ---
RECIEVED BEDSIDE REPORT FROM ISABELLA Damon RN. PT APPEARES TO BE SLEEPING, BREATHING EVEN AND UNLABORED. APPEARS COMFORTABLE AT THIS TIME.
--- NOTE | 2018-07-17 09:28 | NUR ---
PT IS REPORTING LESS NAUSEA. NO COMPLAINTS OF PAIN.
--- NOTE | 2018-07-17 09:54 | CONS ---
[facility] [address], [place] [address] Signed DATE OF CONSULTATION: 07/16/2018 CHIEF COMPLAINT: Postoperative nausea and vomiting. HISTORY OF PRESENT ILLNESS: Kevon is a 77-year-old gentleman, usually quite healthy, who 2-1/2 days ago came with incarcerated symptomatic right femoral hernia. He had a previous right inguinal hernia repair with mesh. Consequently, we did infrainguinal repair of that hernia. The hernia sac was probably 3 cm in length, a bit thickened, but not particularly inflamed, certainly not infected. We had a little blood when we came through the hernia sac from some venous bleeding, but otherwise no turbid fluid. Of course, the hernia sac itself was empty at the time of the surgery. The fascial defect through the femoral canal was only about 4-5 mm in diameter. We had pursestring the hernia sac and divided the distal portion of the hernia sac and sent that off to Pathology Department. It came back as a hernia sac, but only gross evaluation. We then used a jmoryn-sw-spfox stitch to close that fascial defect. Kevon stayed overnight mainly for what seemed like pain control. By the next day, though he was feeling better, and he was discharged to home. He had come back I guess yesterday or the day before with some nausea, vomiting, and some renal dysfunction, had been admitted on observation to our Internal Medicine Service. He was improved by the next day and again allowed to go home. Once again, he had nausea and vomiting. He was dehydrated, so his brought him back to the emergency room for evaluation. In the ER, he is not systemically ill or toxic. His abdomen is soft and flat. His white count is normal, although his band count is high. BUN is 338, his creatinine is 1.09, albumin is 3.1. He did have a CT scan of abdomen and pelvis, and he does have some fluid around his lungs and in the abdomen. There is a question whether or not he has a small left pneumothorax. He does have some fluid-filled loops of nondilated small bowel down in the pelvis. No obvious transition point. No evidence of a recurrent hernia. Again, he has the ascitic fluid. I have been asked to admit him as a general surgeon on-call. He is pretty tired and so he slept overnight and has been receiving IV fluids. He said he does not have any pain at the surgical site and does not want any narcotics. He said he is allergic to codeine and he said he and his daughter both seemed to be sensitive to the narcotics and his daughter says she has nausea and vomiting with narcotics as well. PAST MEDICAL HISTORY: Obstructive sleep apnea and diverticulosis. PAST SURGICAL HISTORY: L4 lumbar surgery, cholecystectomy, bilateral cataract surgery, throat surgery, right knee surgery and a right femoral hernia repair 2-1/2 days ago. SOCIAL HISTORY: Electronically Signed By: ERICK DAVIS MD 07/17/18 0954 PATIENT NAME: KEVON KATZ CONSULTATION DATE OF : 42 REPORT #: [id number] PHYSICIAN: ERICK DAVIS MD PCP: ZEYAD MAY MD REPORT IS CONFIDENTIAL AND NOT TO BE RELEASED WITHOUT AUTHORIZATION [facility] [address], [place] [address] Signed He does not smoke or drink. He is . They prefer the [facility]. 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 Dr. Zeyad May is his primary care provider. FAMILY HISTORY: Not reviewed today. REVIEW OF SYSTEMS: He had 10 systems reviewed and nothing really new other than his nausea and vomiting after femoral hernia repair. ALLERGIES: Codeine and chlorpromazine. MEDICATIONS: None. PHYSICAL EXAMINATION: VITAL SIGNS: Blood pressure 147/90, heart rate 87, respiratory rate 20, temperature is 98.4, and 95% on room air. He is 5 feet 8 inches tall and 73 kg. GENERAL: Kevon is a 77-year-old gentleman who is lying supine semi-recumbent in his hospital bed. His is at the bedside. He was sleeping quite soundly. He was easily awakened. He does not appear to be systemically ill or toxic. He says he has no pain. LUNGS: Clear to auscultation bilaterally. HEART: Regular rate and rhythm. ABDOMEN: Soft, flat, nontender. There are no peritoneal signs or symptoms. LABORATORY DATA: His white blood cell count 8.3, neutrophils are 16, but his bands are 71, hemoglobin 16, BUN 38, creatinine is 1.09. Liver function tests are negative. Albumin 3.1, lipase 3. RADIOGRAPHIC STUDIES: A CT scan of the abdomen and pelvis is reviewed. There is definitely some pleural effusion on both sides, may be a left pneumothorax. He does have some fluid-filled loops of small bowel, but no transition point. He does have some ascites in the pelvic area. ASSESSMENT AND PLAN: Kevon is a 77-year-old gentleman who presents with what appears to be a postop ileus following repair of an incarcerated right femoral hernia. He is certainly having some nausea vomiting dehydration and some renal dysfunction. We felt at the time of surgery this was not the bladder. We came through that with the cautery very carefully and slowly, and we felt this was just hernia sac with some adipose tissue. At the time of surgery, everything seemed very clean. There did not seem to be any dark or turbid Electronically Signed By: ERICK DAVIS MD 07/17/18 0954 PATIENT NAME: KEVON KATZ CONSULTATION DATE OF : 42 REPORT #: [id number] PHYSICIAN: ERICK DAVIS MD PCP: ZEYAD MAY MD REPORT IS CONFIDENTIAL AND NOT TO BE RELEASED WITHOUT AUTHORIZATION [facility] [address], [place] [address] Signed fluid. Whether or not the hernia contained some small bowel on the proximal side is hard to know at the time of surgery. At this point, we have him admitted. We are going to let him have a little Tylenol and hold off narcotics and antibiotics and repeat his labs in the morning and we will see how he is doing. He may just have a simple ileus from some inflammatory changes. However, there is always a concern that part of the bladder got drowned into his hernia sac, but again that seems less likely based on intraoperative findings. I told Kevon and his this could be several days before it resolves and it could be from some omentum that was in the hernia sac that infarcted and is causing some inflammatory reaction. In the end, we might have to do a diagnostic laparoscopy and look at the omentum and small bowel, but for now, I think he is safe to follow a conservative course. They have expressed understanding and agreed above plan. Erick Davis MD ALB/MODL /[id number] cc: MD Zeyad Andersen MD Copies: ERICK DAVIS MD, MALCOLM MD ~ Electronically Signed By: ERICK DAVIS MD 07/17/18 0954 PATIENT NAME: KEVON KATZ CONSULTATION DATE OF : 42 REPORT #: [id number] PHYSICIAN: ERICK DAVIS MD PCP: ZEYAD MAY MD REPORT IS CONFIDENTIAL AND NOT TO BE RELEASED WITHOUT AUTHORIZATION
--- NOTE | 2018-07-17 10:05 | NUR ---
PT REPORTED NAUSEA. RN MEDICATED WITH PHENERGREN. EXPLAINED TO PT HOW THE COVERAGE OF [employer] ARE WORKING AND THE ATTEMPT TO COVER PT WITH 2 MEDICATIONS. ALSO, EXPLAINED CALL LIGHT SYSTEM WORKED AND IT IS NOT ALWAYS CLEAR. PT EXPRESSED FRUSTRATION WITH HAVING TO REPEAT HIMSELF ON THE CALL LIGHT.
--- NOTE | 2018-07-17 12:15 | NUR ---
PATIENT'S AND I WALKED WITH HIM. HE DID 2 LAPS AROUND MED SURG.
--- NOTE | 2018-07-17 12:16 | NUR ---
ASKED PATIENT IF HE WOULD LIKE TO TAKE A SHOWER OR A BED BATH AND HE SAID NO I ALSO ASKED HIM IF HE WOULD LIKE TO BRUSH HIS TEETH AND WASH HIS FACE AND HE SAID NO. CHANGED BED LINENS.
--- NOTE | 2018-07-17 12:52 | NUR ---
RESTARTED IVF AND SODIUM PHOS. IVF AND SODIUM PHOS INTERUPTED FOR ABX.
--- NOTE | 2018-07-17 12:54 | NUR ---
PT PARTCIPATES MINIMIALLY WITH ANY ACTIVITY. SHOWS LITTLE MOTIVATION FOR ANY ACTIVITY, BUT WILL PARTCIPATE BETTER WITH ENCOURAGEMENT FROM SPOUSE.
--- NOTE | 2018-07-17 19:34 | NUR ---
ANSWERED CALL LIGHT. PATIENT USED THE TOILET STATED HE HAD A SMEAR OF BOWEL MOVEMENT AND VOIDED UNMEASURED. PRIMARY RN NOTIFIED.
--- NOTE | 2018-07-17 20:40 | NUR ---
REC THERAPIST ROUNDING NOTE. PT RESTING IN BED WITH PRIMARY RN AT BEDSIDE. PT ASSISTED TO THE BATHROOM AND BACK TO BED WITH SBA. PT DENIES FURTHER NEEDS AT THIS TIME. CALL LIGHT IN REACH.
--- NOTE | 2018-07-17 22:12 | NUR ---
PATIENT IN BD ,LIGHTS DOWN, AND GOING TO TY AND GET SOME SLEEP.
--- NOTE | 2018-07-18 00:33 | NUR ---
PATIENT RESTING QUIETLY, SUPINE, EYES CLOSED, RESPIRATIONS REGULAR AT 16.
--- NOTE | 2018-07-18 01:36 | NUR ---
PATIENT HAD C/O NAUSEA AND WAS GIVEN 8MG IV ZOFRAN.
--- NOTE | 2018-07-18 04:30 | NUR ---
PATIENT JUST UP TO THE BATHRROM TO VOID AND BACK TO BED.
--- NOTE | 2018-07-18 05:16 | NUR ---
PATIENT IS VOIDING WELL AND STAYING WITHIN HER FLUID RESTRICTION AND IS DOWN ALMOST 2LBS IN HER WEIGHT. STILL HAS A JENN COARSE COUGH, WHICH SHE DID GET COUGH SYRUP FOR EARLIER. SL WNL. CALL LIGHT IN REACH.
--- NOTE | 2018-07-18 05:27 | NUR ---
PATIENT RESTED WELL THROUGH THE NIGHT, EXCEPT FOR WHEN HE NEEDED TO GET UP AND VOID. HE DID HAVE ONE EPISODE OF NAUSEA WHICH WAS RELIEVED WITH 8MG IV ZOFRAN. IV IS INFUSING AND WNL. PATIENT REMAINS NPO. SCD'S ARE IN PLACE.
--- NOTE | 2018-07-18 06:41 | NUR ---
ANSWERED CALL LIGHT. SBA TO THE BATHROOM AND BACK TO BED.
--- NOTE | 2018-07-18 07:12 | NUR ---
REIEVED BEDSIDE REPORT FROM AZIZA STEWART. PT SLEEPING SOUNDLY. BREATHING EVEN AND UNLABORED. IVF RUNNING AT 125, VOIDING WELL. REPORTED ONE EPISODE OF NAUSEA OVERNIGHT, ZOFRAN EFFECTIVE.
--- NOTE | 2018-07-18 11:58 | NUR ---
PATIENT WASHED HIS FACE. ALSO SET HIM FOR A SHOWER TODAY.
--- NOTE | 2018-07-18 14:42 | NUR ---
PT IS GETTING UP TO WALK TO THE BATHROOM. HE IS VOIDING WELL, SMALL BM THIS SHIFT. TOLERATING CLEARS WELL. FAMILY AT BEDSIDE. PT STATES HE IS FEELING A LITTLE BETTER.
--- NOTE | 2018-07-18 16:09 | NUR ---
PT UP AMBULATING IN HALLS.
--- NOTE | 2018-07-18 17:08 | NUR ---
PT ADVANCED TO CLEAR LIQUIDS, TOLERATES WELL. PT UP AMBULATED WELL IN [place]. PT REPORTS NO NAUSEA THIS SHIFT, NO PAIN. PT ANXIOUS TO GO HOME. PT IS PASSING FLATUS, SMALL AMTS OF MUCOUS, BUT NO ACTUAL BOWEL MOVEMENT.
--- NOTE | 2018-07-18 19:51 | NUR ---
I ASKED PATIENT SEVERAL TIMES THROUGH OUT THE DAY IF HE WAS READY TO TAKE HIS SHOWER AND HE SAID NO. CHANGED HIS BED LINENS.
--- NOTE | 2018-07-18 20:40 | NUR ---
ANSWERED CALL LIGHT. SBA TO THE BATHROOM. CHANGED SOILED GOWN. PATIENT WAS BACK TO BED. RT WAS WITH PATIENT IN THE ROOM.
--- NOTE | 2018-07-18 21:00 | NUR ---
PATIENT RESTING IN BED SUPINE, EYES CLOSED, RESTING QUIETLY, RESPIRATIONS REGUALR AND EVEN AT 18.
--- NOTE | 2018-07-18 23:05 | NUR ---
PT UTILIZES CALL LIGHT, REPORTS THAT HE IS "SPITTING UP". SERVICE CAPTAIN TO ROOM. PT DENIES EMESIS, STATES THAT HE HAS "EXTRA SALIVA", DENIES NAUSEA. PT OFFERED ANTIEMETIC. HE STATES "I'M NOT THE BEST ONE TO ASK." PT'S PRIMARY RN NOTIFIED. PT DENIES FURTHER NEEDS AT THIS TIME. CALL LIGHT IN REACH.
--- NOTE | 2018-07-19 01:16 | NUR ---
PATIENT RESTING QUIETLY SUPINE, EYES CLOSED, CALL LIGHT IN REACH, RESPIRATIONS REGULAR AND EVEN.
--- NOTE | 2018-07-19 01:37 | NUR ---
SBA TO THE BATHROOM AND BACK TO BED. SCD BACK ON. NO OTHER NEEDS AT THIS TIME.
--- NOTE | 2018-07-19 03:13 | NUR ---
PATIENT UP TO THE BATHROOM WITH 1 PERSON ASSIST AND THEN BACK TO BED.
--- NOTE | 2018-07-19 03:31 | NUR ---
PER PATIENT, ICE WATER REFILLED AND A CUP OF HOT WATER FOR TEA GIVEN.
--- NOTE | 2018-07-19 05:24 | NUR ---
PATIENT SLEPT WELL MOST OF THE NIGHT, IV INFUSING FINE, PATIENT HAS BEEN UP MULTIPLE TIMES TO THE BATHROOM.
--- NOTE | 2018-07-19 07:47 | NUR ---
RECIEVED BEDSIDE REPORT FROM AZIZA STEWART. PT IVF WAS DRY, NOC RN HUNG A NEW BAG OF FLUIDS. PT IS AWAKE AND ALERT. HE HAD QUESTIONS ABOUT THE FULL LIQUID DIET THAT HE WAS ADVANCED TO, RN EXPLAINED DIET AND ORDERED HIM A TRAY. PO INTAKE IS GOOD. VOIDING WELL.
--- NOTE | 2018-07-19 09:07 | NUR ---
PT IS RESTING IN ROOM. PT IS STILL UNMOTIVATED TO PARTCIPATE IN MANY ACTIVITIES. PT DOES NOT WANT TO GET UP TO WALK, WOULD LIKE A LIST OF FULL LIQUIDS.
--- NOTE | 2018-07-19 09:28 | NUR ---
RN GAVE PT A LIST OF FOOD IDEAS THAT FIT WITH FULL LIQUIDS. PT SAYS HE WILL ORDER FROM THE LIST.
--- NOTE | 2018-07-19 13:01 | NUR ---
Patient has Ambulated arond the nurse station twice to day with his , patient said they went around 3 time. patient is now back in his room setting up to eat his lunch, call light in reach nad fresh water given.
--- NOTE | 2018-07-19 19:10 | NUR ---
BEDSIDE REPORT RECEIVED FROM AZIZA RICO. PT RESTING IN BED WITH EYES CLOSED. BREATHING EQUAL AND NON-LABORED. LIGHTS OFF IN ROOM.
--- NOTE | 2018-07-19 19:30 | NUR ---
CHARGE NURSE REPORT RECEIVED. PT LAYING ON RIGHT SIDE, LIGHTS OFF. NO NEEDS AT THIS TIME.
--- NOTE | 2018-07-19 19:50 | NUR ---
CALL LIGHT ANSWERED, PT ASSISTED TO REPOSITION IN BED. PT DROWSY, DENIES PAIN OR NAUSEA AT THIS TIME. IVF INFUSING WNL ORDERED. PT'S QUESTIONS ANSWERED REGARDING PRN ANTIEMETIC MEDICATIONS. CALL LIGHT IN REACH.
--- NOTE | 2018-07-19 22:00 | NUR ---
PT ASSESSMENT COMPLETE. ABDOMEN DISTENDED, NON-TENDER W PALPATION, BOWEL TONES HYPOACTIVE THROUGHOUT. PT DENIES NAUSEA AT THIS TIME. DENIES PAIN. INCISION CDI ON RIGHT INGUINAL AREA. SCDS ON. CALL LIGHT IN REACH. PO FLUIDS ENCOURAGED. PT STATES PASSING GAS.
--- NOTE | 2018-07-19 22:31 | NUR ---
CALL LIGHT ANSWERED, 200 ML EMESIS NOTED BY RN ANDREW. PT IN BED, HOB ELEVATED. PRN ZOFRAN IV ADMINISTERED. CALL LIGHT IN REACH, LIGHTS OFF IN ROOM. NO REQUESTS AT THIS TIME.
--- NOTE | 2018-07-20 01:01 | NUR ---
CHECKED ON PT. RESTING IN BED WITH EYES CLOSED. BREATHING NON-LABORED. LIGHTS OFF IN ROOM. RR 18.
--- NOTE | 2018-07-20 02:53 | NUR ---
CALL LIGHT ANSWERED, SBA TO RESTROOM FOR VOID AND SMALL BM AND BACK TO BED. PT DENIES PAIN, DENIES NAUSEA. BOWEL TONES HYPOACTIVE X4, ABDOMEN DISTENDED, SOFT, NON-TENDER W PALPATION. IVF INFUSING WNL. PT HAS CALL LIGHT IN REACH. SCDS ON. ICE WATER AND JUICE PROVIDED REQUESTED.
--- NOTE | 2018-07-20 04:46 | NUR ---
PT WITH ONE EPISODE OF EMESIS THIS SHIFT. FLATUS PRESENT. BOWEL TONES HYPOACTIVE X 4, ABD DISTENDED, NON-TENDER. PT DENIES PAIN. PRN NAUSEA MEDICATION X 1. SMALL BM THIS SHIFT. IVF INFUSING WNL THROUGHOUT SHIFT. SBA. USING CALL LIGHT APPROPRIATELY.
--- NOTE | 2018-07-20 05:54 | NUR ---
CALL LIGHT ANSWERED, SBA TO RESTROOM FOR VOID. VSS. PT AMBULATING INDEPENDENTLY IN HALLWAY. IVF INFUSING WNL. PT NOW BACK IN BED, SCDS ON. CALL LIGHT AND PERSONAL SUPPLIES IN REACH.
--- NOTE | 2018-07-20 07:44 | NUR ---
Pt sleeping, resp even and non labored. at bedside. Per , pt did not get much sleep last night. Decreased d5lr to 50ml/hr per doc order. Per 's request she would like her to sleep a bit longer, if possible. Personal supplies and call light within reach of pt.
--- NOTE | 2018-07-20 07:50 | NUR ---
Patient is awake, is in the room, frsh water given and call light in reach, Patient dose all his own cares.
--- NOTE | 2018-07-20 08:14 | NUR ---
Pt vomited approximately 400ml of emesis. Dark green in color.
--- NOTE | 2018-07-20 08:18 | NUR ---
Patient had Emesis, 400 cc RN notified.
--- NOTE | 2018-07-20 12:44 | NUR ---
Pt offered a shower this afternoon, pt declined at this moment, however states he likely will take one later today with assistance from his . Instructed pt to push call light and staff can prepare shower stall for him when he is feeling ready. Pt reports nausea has improved. Personal supplies and call light within reach. No needs at this time.
--- NOTE | 2018-07-20 16:42 | NUR ---
Pt a&ox3, on ra. Pt has intermitent n/v; zofran in use. d5lr@50ml/hr. Pt passing gas, hypoactive bowel tones noted. Tolerating light snack foods on/off. AM abd xray for f/u post op ileus planned. Pt showered today. Calls staff approp.
--- NOTE | 2018-07-20 18:09 | NUR ---
Pt A&OX3. Pt on ra. d5lr @50ml/hr. tolerating low fiber diet. hypoactive bt's, lbm 07/20/18. voiding q/s. Walking in hallway independently. Zofran prn n/v. Declines pain medication.
--- NOTE | 2018-07-20 19:15 | NUR ---
BEDSIDE REPORT RECEIVED FROM AZIZA MARR. IVF INFUSING WNL ORDERED. RESTING IN BED WITH EYES CLOSED. BREATHING NON-LABORED. AT BEDSIDE.
--- NOTE | 2018-07-20 20:36 | NUR ---
PT ASSESSMENT COMPLETE. PT DENIES PAIN.ABDOMEN SOFT, DISTENDED. BOWEL TONES ACTIVE AT THIS TIME. PT TOLERATING LOW FIBER DIET, DENIES NAUSEA. VSS. RT REJI IN ROOM INSTRUCTING PT ON IS. CALL LIGHT IN REACH. LIGHTS OFF IN ROOM.
--- NOTE | 2018-07-20 21:50 | NUR ---
CALL LIGHT ANSWERED, SBA TO RESTROOM FOR VOID. PT INSTRUCTED TO USE CALL LIGHT WHEN FINISHED. VERBALIZED UNDERSTANDING.
--- NOTE | 2018-07-21 00:37 | NUR ---
PT RESTING IN BED WITH EYES CLOSED, APPEARS TO BE SLEEPING. VISIBLE CHEST RISE. IVF INFUSING. SCDS ON.
--- NOTE | 2018-07-21 02:30 | NUR ---
PT APPEARS TO BE SLEEPING, EYES CLOSED. RR 16. SCDS ON. IVF INFUSING ORDERED.
--- NOTE | 2018-07-21 04:17 | NUR ---
CALL LIGHT ANSWERED, SBA TO RESTROOM FOR VOID AND SMALL BM AND BACK TO BED. VSS. BOWEL TONES HYPOACTIVE, ABDOMEN DISTENDED. NON-TENDER W PALPATION. CALL LIGHT IN REACH. ICE WATER AND SPRITE PROVIDED. IVF INFUSING WNL. SCDS ON.
--- NOTE | 2018-07-21 04:37 | NUR ---
PT RESTED WELL THROUGHOUT SHIFT. NO REPORTS OF NAUSEA THIS SHIFT. ABD DISTENDED, FIRM, BOWEL TONES HYPOACTIVE X 4. TOLERATING LOW FIBER DIET WELL. IVF INFUSING WNL ORDERED. SBA TO RESTROOM, QS VOIDS AND SMALL BMS X 2, FLATUS PRESENT.
--- NOTE | 2018-07-21 06:27 | NUR ---
IV SALINE LOCKED BY AZIZA NIELSEN. IMAGING IN ROOM TO TAKE PT FOR XRAY.
--- NOTE | 2018-07-21 07:01 | NUR ---
PT RIGHT ARM COLD AND SLIGHTLY SWOLLEN, IV DC'D WNL. NEW IV STARTED ON LEFT WRIST. PT TOLERATED WELL. CALL LIGHT IN REACH.
--- NOTE | 2018-07-21 07:52 | NUR ---
Pt is awake, alert and oriented x3. Pt reports improved nausea and abd pain. Personal supplies and call light within reach. at bedside. No needs at this time.
--- NOTE | 2018-07-21 10:22 | NUR ---
Pt vomited approx 250ml emesis. Zofran 8mg ivp admin at this time. Personal supplies and call light wihin reach.
--- NOTE | 2018-07-21 12:02 | NUR ---
Dr. Peng in to consult with pt. Pt to have small bowel follow through here shortly. NPO at this time.
--- NOTE | 2018-07-21 12:31 | NUR ---
ADMIN PHENERGAN 12.5MG IVP FOR NAUSEA. PT LEFT UNIT FOR DI STUDY.
--- NOTE | 2018-07-21 16:01 | NUR ---
PT BACK FROM [facility].
--- NOTE | 2018-07-21 17:29 | NUR ---
Per Dr. Ginette matute to resume Low fiber diet.
--- NOTE | 2018-07-21 17:31 | NUR ---
PT A&OX3. OM RA. VS STABLE. INTERMITTENT N/V; ZOFRAN AND PHENERGAN PRN. TOLERATING LOW FIBER DIET. STANDBY ASSIST TO BR. CALLS APPROPRIATELY.
--- NOTE | 2018-07-21 19:10 | NUR ---
BEDSIDE REPORT RECEIVED FROM AZIZA MARR. SBA TO RESTROOM. IVF INFUSING WNL. PT INSTRUCTED TO USE CALL LIGHT WHEN FINISHED. VERBALIZES UNDERSTANDING.
--- NOTE | 2018-07-21 19:52 | NUR ---
IN PT ROOM SENIOR POLICY ADVISOR STATES PT REQUESTING TO SEE RN. APPEARS TO BE SLEEPING. EYES CLOSED, BREATHING NON-LABORED. RR 18.
--- NOTE | 2018-07-21 21:17 | NUR ---
RECEIVED TELEPHONE ORDER PER DR DAVIS. VERIFIED TELEPHONE ORDER USING THE REDBACK METHOD.
--- NOTE | 2018-07-21 22:00 | NUR ---
CALL LIGHT ANSWERED, SBA TO RESTROOM FOR BM AND VOID. LARGE AMT BROWN LIQUID STOOL NOTED. PT BACK IN BED, SCDS ON. IV FLUSHED WNL, IVF INFUSING ORDERED. PT DENIES PAIN, DENIES NAUSEA. BOWEL TONES ACTIVE X 4. ABD DISTENDED, FIRM. PERSONAL SUPPLIES AND PO FLUIDS IN REACH. NO REQUESTS AT THIS TIME. CALL LIGHT IN REACH.
--- NOTE | 2018-07-21 23:51 | NUR ---
CALL LIGHT ANSWERED. SBA TO RESTROOM. GAIT STEADY. INSTRUCTED TO USE CALL LIGHT WHEN FINISHED. VERBALIZES UNDERSTANDING.
--- NOTE | 2018-07-22 02:07 | NUR ---
CALL LIGHT ANSWERED SBA TO RESTROOM FOR VOID AND LIQUID BM AND BACK TO BED. ASSESSMENT COMPLETE. ABD DISTENDED, FIRM, BOWEL TONES HYPOACTIVE X 4. NON-TENDER. PT DENIES PAIN AND NAUSEA. IVF INFUSING WNL ORDERED. SCDS ON. ICE WATER REFILLED.
--- NOTE | 2018-07-22 03:31 | NUR ---
PT RESTING IN BED WITH EYES CLOSED. SNORING. BREATHING NON-LABORED. IVF INFUSING WNL. SCDS ON.
--- NOTE | 2018-07-22 04:07 | NUR ---
SBA FROM RESTROOM BACK TO BED, PT C/O NAUSEA. PRN NAUSEA MEDICATION ADMINISTERED. VSS. PT RESTING IN BED WITH HOB ELEVATED. CALL LIGHT IN REACH. SCDS ON. IVF INFUSING WNL.
--- NOTE | 2018-07-22 05:52 | NUR ---
CALL LIGHT ANSWERED, ICE WATER AND JUICE PROVIDED REQUESTED. SCDS ON. IVF INFUSING WNL. CALL LIGHT IN REACH.
--- NOTE | 2018-07-22 06:07 | NUR ---
MULTIPLE LIQUID BMS THIS SHIFT. BOWEL TONES HYPOACTIVE, ABD FIRM AND DISTENDED. PRN NAUSEA MEDICATION X 1, NO EMESIS. USING CALL LIGHT APPROPRIATELY. SBA. SCDS IN PLACE. IVF INFUSING WNL ORDERED. NO REPORTS OF PAIN.
--- NOTE | 2018-07-22 07:36 | NUR ---
REPORT RECIEVED FROM BASE DRAW OPERATOR RN. PT LYING IN BED WITH EYES CLOSED. RESPIRATIONS EQUAL AND NONLABORED. D5LR AT 50ML/HR. CALL LIGHT IN REACH.
--- NOTE | 2018-07-22 08:20 | NUR ---
ROUNDED WITH DR LAN. PLAN OF CARE DISCUSSED.
--- NOTE | 2018-07-22 09:32 | NUR ---
IMAGING CALLED TO INFORM THIS NURSE TO REPORT SMALL BOWEL FOLLOW THROUGH WITH [facility] YESTERDAY AND NEED FOR XRAY TO SEE AMOUNT OF CONTRAST LEFT IN BOWEL. DR LAN. CALLED WITH [employer]. TELEPHONE ORDER FOR SERGIO. ORDER PLACED.
--- NOTE | 2018-07-22 10:11 | NUR ---
20F VAZQUEZ PLACED PER MD ORDER. PT TOLERATED WELL. UROJET USED. 250ML OUT.
--- NOTE | 2018-07-22 10:17 | NUR ---
PATIENT RESTING IN BED. IN ROOM. VITAL SIGNS DONE. I&O DONE BY RN. CALL LIGHT WITHIN REACH. NO OTHER NEEDS AT THIS TIME
--- NOTE | 2018-07-22 10:25 | NUR ---
PT OFF FLOOR TO IMAGING VIA WHEELCHAIR. 1L NC IN PLACE. POTASSIUM INFUSING. PUMP TAKEN WITH PT.
--- NOTE | 2018-07-22 11:35 | NUR ---
PT OFF FLOOR TO IMAGING.
--- OUTSIDE RECORDS SUMMARY | 2018-07-22 12:10 | XMS ---
PreManage Notification: [facility]IL[facility] Security Mannequin Mounter Events No recent Security Events currently on file CRITERIA MET - [facility] - Has Care Guidelines - PDMP - [facility] - 2 Visits in 30 Days CARE PROVIDERS [place] Hospitalist 07/15/2018-Current PHONE: Unknown Nina has no Care Guidelines for this patient. Care History Medical/Surgical 07/15/2018 [facility] - Patient is currently established with [facility]. If patient is seen in the ED during business hours. Please contact CHWs at [facility]. Care Recommendation: This patient has had 5 or more Emergency Department visits in the last 12 months.\T\nbsp; Patient requires education on the scope and purpose of the ED as an acute care provider not a Primary Care Provider and should not be utilized for chronic conditions.\T\nbsp; These are guidelines and the provider should exercise clinical judgment when providing care. E.D. VISIT COUNT (12 MO.) 3 [facility] TOTAL 3 NOTE: Visits indicate total known visits. ED/UCC VISIT TRACKING (12 MO.) 07/16/2018 03:47 [facility] [place] TYPE: Emergency COMPLAINT: - VOMITING 07/14/2018 19:19 [facility] [place] TYPE: Emergency COMPLAINT: - CONFUSION,TIREDNESS 07/13/2018 10:21 [facility] [place] TYPE: Emergency COMPLAINT: - ABD PAIN/VOMITING INPATIENT VISIT TRACKING (12 MO.) 07/14/2018 19:20 [facility] [place] TYPE: Observation COMPLAINT: - DEHYDRATION 07/13/2018 10:22 [facility] [place] TYPE: Observation COMPLAINT: - RECURRENT R INGUINAL HERNIA [email or web address]
--- OUTSIDE RECORDS SUMMARY | 2018-07-22 12:11 | XMS | Clinical Summary ---
Demographics + + + | Address | [address] | | | [place] [address] | + + + | Home Phone | | + + + | Preferred Language | Unknown | + + + | Marital Status | | + + + | Orthodox Affiliation | NON | + + + | Race | White | + + + | Ethnic Group | Not or | + + + Author + + + | Author | [facility] | + + + | Organization | [facility] | + + + | Address | Unknown | + + + | Phone | Unavailable | + + + Support + + + + + | Name | Relationship | Address | Phone | + + + + + | Elizabeth Welch | ECON | [address] | | | | | [place] | | | | | [phone] | | + + + + + Care Team Providers + +------+ + | Care Broomcorn Grader Name | Role | Phone | + +------+ + | Zeyad May MD | PP | | + +------+ + Source Comments YOVANNY is fully live on both EpicCare Ambulatory and EpicCare InPatient.[facility] Allergies + + + + + + | Active Allergy | Reactions | Severity | Noted | Comments | | | | | Date | | + + + + + + | Ibuprofen | Palpitations | | 06/30/19 | Only with Large | | | | | 12 | dose amount | | | | | | reactions were | | | | | | irregular heart beat | | | | | | | + + + + + + | Molindone Hcl | Palpitations | | 06/30/19 | irregular heart | | | | | 12 | beat | + + + + + + | Naproxen | Rash | High | 10/16/19 | | | | | | 12 | | + + + + + + Medications No known medications Active Problems + + + | Problem | Noted Date | + + + | Low back pain | 10/09/2011 | + + + | Herniated lumbar intervertebral disc | 10/09/2011 | + + + | Lumbar radiculopathy | 10/09/2011 | + + + | Degeneration of lumbar intervertebral disc | 10/09/2011 | + + + | Shoulder pain | 04/29/2011 | + + + Social History + +-------+ +--------+------+ | Tobacco Use | Types | Packs/Day | Years | Date | | | | | Used | | + +-------+ +--------+------+ | Never Smoker | | | | | + +-------+ +--------+------+ + +---+---+---+ | Smokeless Tobacco: | | | | | Never Used | | | | + +---+---+---+ + + +---------+ + | Alcohol Use | Drinks/Week | oz/Week | Comments | + + +---------+ + | Yes | 7 Glasses of wine | 3.5 | 1 glass of wine a | | | | | day | + + +---------+ + + + + | Sex Assigned at | Date Recorded | | | | + + + | Not on file | | + + + + + + + | Job Start Date | Occupation | Industry | + + + + | Not on file | Not on file | Not on file | + + + + + + + + | Travel History | Travel Start | Travel End | + + + + + + | No recent travel history available. | + + Last Filed Vital Signs + + + + + | Vital Sign | Reading | Time Taken | Comments | + + + + + | Blood Pressure | 121/60 | 04/21/2016 10:58 AM | | | | | PDT | | + + + + + | Pulse | 50 | 04/21/2016 10:58 AM | | | | | PDT | | + + + + + | Temperature | 36.5 C (97.7 F) | 07/22/2011 11:30 AM | | | | | PDT | | + + + + + | Respiratory Rate | 12 | 05/19/2013 10:25 AM | | | | | PDT | | + + + + + | Oxygen Saturation | 99% | 07/22/2011 11:30 AM | | | | | PDT | | + + + + + | Inhaled Oxygen | - | - | | | Concentration | | | | + + + + + | Weight | 68.9 kg (152 lb) | 04/21/2016 10:58 AM | | | | | PDT | | + + + + + | Height | 172.7 cm (5' 8") | 04/21/2016 10:58 AM | | | | | PDT | | + + + + + | Body Mass Index | 23.11 | 04/21/2016 10:58 AM | | | | | PDT | | + + + + + Plan of Treatment + + + + + | Health Maintenance | Due Date | Last Done | Comments | + + + + + | Pneumococcal (Adult) | | | | | (1 of 2 - PCV13) | 7 | | | + + + + + | Influenza (Flu) | | | | | vaccination: MyChart | 9 | | | | opt out (Season | | | | | Ended) | | | | + + + + + Results Not on filefrom Last 3 Months
--- NOTE | 2018-07-22 13:15 | NUR ---
DR DAVIS IN TO DISCUSS PLAN OF CARE WIHT PT AND . QUESTIONS AND CONCERNS ADRESSED. PLAN FOR SURGERY. PT AND AGREEABLE. PRE-SURGICAL WASH DONE. NEW GOWN PROVIDED. PRE-OP ANTIBIOTICS HUNG BUT NOT INFUSING. POTASSIUM COMPLETED.
--- NOTE | 2018-07-22 13:39 | NUR ---
PT OFF FLOOR TO SURGERY.
--- NOTE | 2018-07-22 13:45 | NUR ---
REPORT FITZ VALERIO RN IN CCU.
--- NOTE | 2018-07-22 14:17 | NUR ---
PATIENT TAKEN TO SURGERY. OR PATIENT NOT AVAILABLE IN PERSON AT THIS TIME. CALLED MARÍA ELENA, PATIENT'S , TO SEE IF SHE WOULD BE BACK THIS AFTERNOON TO TELECOMMUNICATIONS SUPPORT SOME LOW-FIBER DIET INFORMATION. SHE MENTIONED DR. DAVIS MENTIONED A LOW-RESIDUE DIET, BUT ONLY A LOW-FIBER CAME UP IN THE DIET ORDERS. I EXPLAINED DIET MANUALS DON'T CALL IT A LOW-RESIDUE DIET ANYMORE, IT'S CALLED A LOW-FIBER DIET NOW. I WILL LEAVE A COPY OF LOW-FIBER INFORMATION FROM THE NUTRITION CARE MANUAL AT THE [employer] OPERATOR HELPER FOR MARÍA ELENA TO TELECOMMUNICATIONS SUPPORT SINCE I AM OUT OF THE OFFICE TOMORROW.
--- NOTE | 2018-07-22 16:29 | NUR ---
07/22/18 1629 Opal Cartwright 1607- PT ARRIVES TO CCU ROOM #128. PT IS NONAROUSABLE TO NOXIOUS STIMULI AND HAS AN OPA IN PLACE WITH A JAW THRUST BEING PERFORMED BY OLLIE GAGE CRNA. AZIZA HINOJOSA TAKES OVER JAW THRUST. RESP EVEN AND UNLABORED. OXYGEN SAT MID 90'S ON 10L VIA MASK. 1622- PT IS BECOMING MORE AROUSABLE AND IS FOLLOWING COMMANDS AZIZA HINOJOSA ASKS HIM SUCH LIFTING HIS ARMS. PT DOES NOT FOLLOW COMMANDS TO TAKE OUT HIS ORAL AIRWAY AND IS NOT GAGGING ON IT. 1626- PT IS ABLE TO FOLLOW AZIZA HINOJOSA COMMANDS TO OPEN HIS MOUTH. OPA REMOVED BY HER AT THIS TIME. RESP EVEN AND UNLABORED. PT REMAINS ON 10L VIA MASK. 1628- OXYGEN TURNED DOWN TO 6L VIA MASK. OXYGEN SAT MID 90'S ON THIS.
--- NOTE | 2018-07-22 17:06 | NUR ---
Assumed care of pt from PACU nurses. Pt drowsy but answering questions appropriately. Pt on 4L oximask VSS at this point. in room to see pt. All questions answered at this time. will continue to monitor
--- NOTE | 2018-07-22 18:38 | NUR ---
Dr. Peng called for K+ 3.5 and updated of status of TPN orders. No new orders received.
--- NOTE | 2018-07-22 19:58 | NUR ---
PT RESTING IN BED, DENIES ANY NEEDS AT THIS TIME, VSS, NO C/O PAIN AT THIS TIME, NO C/O NAUSEA, ON 4LNC, NO C/O SOB/CP, O2 SAT 95%, CALL LIGHT WITHIN REACH. IV FLUIDS INFUSING PER EMAR WNL.
--- NOTE | 2018-07-22 20:10 | NUR ---
CALLED DR. DAVIS AND DISCUSSED THE PT'S TPN ORDER, CONFIRMED THAT HE WOULD LIKE THE PT'S TPN TO BEGIN AT THE CURRENTLY ORDERED TIME TOMORROW, NO NEW ORDERS, TORB.
--- NOTE | 2018-07-22 20:42 | NUR ---
PT C/O NAUSEA AND STATES HE HAS BEEN WRETCHING IN BED WITH NO PRODUCTION OF EMESIS, PT REQUESTING PRN NAUSEA MEDICATION, ZOFRAN GIVEN PER EMAR. NO FURTHER NEEDS AT THIS TIME. CALL LIGHT WITHIN REACH.
--- NOTE | 2018-07-22 21:00 | NUR ---
PT RESTING IN BED, SHAY DRAIN BANDAGE NOTED TO BE SATURATED, BANDAGE WELL BEDDING CHANGED, PT TOLERATED TURNING WELL, SMALL AMOUNT OF SEROSANGUINEOUS DRAINAGE NOTED IN BOTH SHAY DRAINS, VAZQUEZ CARE COMPLETE, SWELLING NOTED IN PT'S SCROTUM WELL BLE, AND BUE, SCROTUM PLACED ON PILLOW CASE TO ELEVATE. SCD'S ON, PT'S TEETH BRUSHED AND FACE WASHED PER REQUEST, NG TUBE TO LIWS WNL, PT'S LS COURSE, ON 4L VIA OXY MASK, NO C/O SOB, BUT PT DOES DESAT WITH OXYGEN REMOVAL, BT ACTIVE, CMS INTACT, PT'S VSS, PT STATES PAIN IS 1/10, STATES THAT HE DOES NOT WANT ANY OPIOID PAIN MEDICATIONS, CALL LIGHT WITHIN REACH. IV FLUIDS INFUSING PER EMAR WNL.
--- NOTE | 2018-07-22 23:23 | NUR ---
PT RESTING IN BED, NO REQUESTS AT THIS TIME, IV FLUIDS INFUSING PER EMAR WNL, NG TUBE TO LIWS WNL, CALL LIGHT WITHIN REACH. SCD'S ON.
--- NOTE | 2018-07-23 01:19 | NUR ---
PT RESTING IN BED, EYES CLOSED, BREATHS EVEN, UNLABORED, NO REQUESTS AT THIS TIME, PT ON 2L VIA OXY MASK, O2 SAT 94%, IV FLUIDS INFUSING PER EMAR WNL, NG TUBE TO LIWS WNL, CALL LIGHT WITHIN REACH. VSS.
--- NOTE | 2018-07-23 03:39 | NUR ---
PT RESTING IN BED, NO REQUESTS AT THIS TIME, IV FLUIDS INFUSING PER EMAR WNL, NG TUBE TO LIWS WNL, CALL LIGHT WITHIN REACH. SCD'S ON, PT REMAINS ON 2L VIA OXY MASK, NO C/O SOB/CP, VSS.
--- NOTE | 2018-07-23 06:22 | NUR ---
PT RESTING IN BED, PT'S SHAY DRAINS NOTED TO HAVE LEAKED, SEROUS/ SEROSANGUNEOUS DRG, DRESSING REPLACED, BEDDING CHANGED, NEW GOWN APPLIED, NO FURTHER NEEDS AT THIS TIME, CALL LIGHT WITHIN REACH. NG TO LIWS WNL, IV FLUIDS INFUSING PER EMAR WNL.
--- NOTE | 2018-07-23 06:37 | NUR ---
DR. DAVIS NOTIFIED OF PT'S LOW URINE OUTPUT, NO NEW ORDERS,
--- NOTE | 2018-07-23 07:00 | NUR ---
Notified Dr. Robles that patient has potassium value of 3.2 and magnesium of 1.6, also notified her that patient has had frequent junctional beats and has been primarily in junctional tachycardia this am, was in sinus rhythm at beginning of shift. Received order for 2 grams IV magnesium sulfate once. no other orders.
--- NOTE | 2018-07-23 08:00 | NUR ---
REPORT RECEIVED FROM SCREWDOWN OPERATOR RN. PT IN BED AWAKE. NG TUBE TO LIWS. PT REPORTS PAIN 03/21. D5LR AT125. RESPIRATIONS ARE EQUAL AND NOLABORED. 2L OXYMASK IN PLACE. SCD'S ON. CALL LIGHT IN [facility],. MOUTH SWABS PROVIDED.
--- NOTE | 2018-07-23 08:39 | OR ---
[facility] [address], [place] [address] Signed DATE OF OPERATION: 07/22/2018 SURGEON: Erick Davis MD PREOPERATIVE DIAGNOSES: 1. Perforated bowel. 2. Acute malnutrition. POSTOPERATIVE DIAGNOSES: 1. Perforated ileum (6-8 mm). 2. Acute malnutrition. PROCEDURES PERFORMED: 1. Laparotomy and primary suture repair of small bowel x1. 2. Placement of drains in right pelvis and over right liver. 3. Placement of right internal jugular triple-lumen catheter. 4. Physician-directed ultrasound. 5. Physician-directed fluoroscopy. FINDINGS: Kevon is now postop day #9 from a right femoral hernia repair. This was done acutely as he came to the emergency room. We found he had a Cristina's type herniation of that ileum and resulted in a 6-8 mm perforation on the antimesenteric side of his ileum. He had an abscess cavity contained underneath the small bowel and the pelvis and then he had an abscess cavity with fluid over the dome of the right liver and some fluid up the right gutter. INDICATIONS: Kevon is a 77-year-old gentleman, otherwise pretty healthy, who came to us in the emergency room nine days ago with an incarcerated right femoral hernia. He was taken directly from the ER into the OR where he underwent an infrainguinal primary suture repair. When we opened the hernia sac, it was quite clean and completely empty. There was no fat, omentum or bowel in that hernia sac. We had secured the neck of the hernia sac with a 2-0 pursestring of PDS suture. He had some pain issues afterwards. He does not like narcotics. He stayed overnight. He was doing well. We send him home the next day. Unbeknownst to me, he came back a day or so later with some nausea and vomiting where he had some prerenal insufficiency. The Internal Medicine Service had hydrated him, he did well and was feeling good, and again he was discharged back to home with his . Within a few days, he was still not feeling particularly well, having some nausea and vomiting, so he came back to our emergency room. At that time, he had a significant Electronically Signed By: ERICK DAVIS MD 07/23/18 0839 PATIENT NAME: KEVON KATZ OPERATIVE REPORT DATE OF : 42 REPORT #: [id number] PHYSICIAN: ERICK DAVIS MD PCP: ZEYAD ISRAEL MD REPORT IS CONFIDENTIAL AND NOT TO BE RELEASED WITHOUT AUTHORIZATION [facility] [address], [place] [address] Signed left shift, but his white count was normal. BUN is up at 38, creatinine was 1.09. CT scan showed some fluid-filled loops of small bowel with no transition point. There was concern for postoperative ileus. He had a bwwaz-ab-gwyseylv amount of ascites at that time and he had a small right sympathetic pleural effusion. Amazingly, his abdomen was soft. He really had no peritonitis and said he really was not in pain. We held his antibiotics and his Tylenol and admitted him for IV hydration. We also checked the urine and it was unremarkable. I had spoken with Kevon and his about the possibility of small bowel being involved with that femoral hernia. They might need surgery. However, he felt he was improving and wanted to hold off on surgery. We gave him some Rocephin and Flagyl initially. Again, amazingly, he never had any peritonitis and he never complained of pain. He is hard of hearing and so I have made sure that all is face him directly and talk clearly and loudly. He did answer appropriately and his white count remained normal. He said he felt much better after a good night's sleep and wanted to try some clear liquids. He was having some flatus but was a little distended from his ascites. He had some intermittent episodes of emesis, but never was able to qualify that much for me. We tried to advance his diet a bit and again, he stated he was feeling better, continued to have flatus and some small smears of stool. Yet, he was still having some abdominal distention from the ascites, a little bit of the emesis. We had ordered some followup x-rays and really not much change there. Certainly, no free air. We did send him down for a simple surgeon's small-bowel follow-through. The contrast went through nicely in the stomach and the proximal one-half of the bowel. It slowed down to the ileum but made its way into the colon. There was no leak. No thickening to the bowel. No obvious stricture. Later, we found out that Gastrografin was half barium as well. I did take the time to talk with our urologist and we decided to order a CT IVP. At that point, the bladder looked fine, but he seemed to have contrast out in his abdomen. Consequently, I had spoke with the radiologist as well as our urologist. I went ahead and canceled my afternoon office and came over and spoke to Kevon and his in detail. Amazingly, he still had no change in his affect. He is very stoic. He was moderately distended, but he gave no evidence of any peritonitis and said he really was not in pain. Nevertheless, he and his did consent for surgery at that time. I explained to Kevon and his this would require laparotomy and repair of most likely small bowel, probably placement of some drains and given the fact that he has had good nutrition in nine days and would need ongoing support in the ICU, we also wanted to place a central venous catheter. There is risk to the surgery including, but not limited to bleeding, infection, scarring, change in contour of the skin, damage to bowel, anastomotic leak, as well as troubles in the future with granulomas, adhesions and small bowel obstructions as well as issues with perioperative strokes, heart attacks, deep vein thrombosis and so forth. They had expressed understanding and wished to proceed. DESCRIPTION OF PROCEDURE: Kevon was taken into the operating room and placed in a supine position. Again, he told Electronically Signed By: ERICK DAVIS MD 07/23/18 0839 PATIENT NAME: KEVON KATZ OPERATIVE REPORT DATE OF : 42 REPORT #: [id number] PHYSICIAN: ERICK DAVIS MD PCP: ZEYAD ISRAEL MD REPORT IS CONFIDENTIAL AND NOT TO BE RELEASED WITHOUT AUTHORIZATION [facility] [address], [place] [address] Signed me he did not feel like he was in any pain. He was placed under general endotracheal tube anesthesia. He was given his preoperative antibiotics, doing cefotetan and Flagyl. He was already on subcutaneous heparin. SCDs were in place. He still had a Barrios catheter in from his CT IVP. He was then prepped and draped in the usual sterile fashion. We made a standard midline periumbilical incision with a knife and carried that in the abdomen with the help of the cautery. Initially, we could see his transverse colon. His proximal small-bowel had some air in it and as we looked into the pelvis and I placed my hand and came underneath the bowel, we came into that cavity of fluid and it came out under pressure quite impressively. We were able to elevate that small bowel and copiously irrigate the area of the right lower quadrant and the pelvis. We could see that he had a small 6-8 mm perforation on the antimesenteric side of his ileum. I looked at the femoral hernia site and it was perfectly puckered consistent with the 2-0 PDS pursestring suture. I had placed my finger there and it was quite flat. Consequently, this appears to be a Cristina's type hernia that had perforated. He had a little bit of fluid upon the right gutter, but then from the ribcage up over the right dome of the liver, he had another area of contained fluid and I broke into bluntly with my finger tips. We irrigated and suctioned that out as well. I did milk a little bit of the contents of the small bowel out and there are some laps and we discarded those. We then closed the perforation in 2 layers with interrupted siyfuw-xe-firaa 3-0 Vicryl suture and then 3-0 silk sutures using a Lembert stop method. This gave us a palpably patent repair with my thumb and finger tip. We then irrigated the small bowel and cleaned off as much of the fluid and debris as possible. We then placed a #10 flat Milad drain up over the right dome of the liver and brought it out the right side of the abdomen just below the costal margin. Similarly, we placed a #10 flat Milad drain down the pelvis, brought it up over the pelvic brim underneath the cecum and out the right side of the abdomen. Each drain was held in place with an interrupted 2-0 nylon suture. We then closed the abdomen in the midline with interrupted imrdyu-ht-ebbyw #1 PDS sutures. The wound was irrigated and suctioned out until clear. The dermis was reapproximated with interrupted 3-0 subcuticular Monocryl sutures. The skin edges were reapproximated with lis. Dry gauze and tape were then applied. After this, the entire field was taken down, we all completely re-gowned, re-prepped and re-scrubbed. His both sides of his neck, his entire chest were then prepped and draped in the usual sterile fashion. We placed him in slight Trendelenburg position and used our ultrasound to locate the right internal jugular vein along with the carotid artery. We were able to easily watch our needle pass into the vein and we were able to get the wire then to feed down without resistance. We checked the position of the wire all the way down to the heart with our fluoroscopy unit. After this, the tract was dilated, the dilator curved appropriately, and we inserted our triple lumen catheter up to 16 cm. All three ports were able to draw and flush quite readily. The position of catheter was again checked with the help of fluoroscopy unit. The catheter was held in place on the neck with interrupted silk sutures. Dry plastic occlusive dressing was then applied. Electronically Signed By: ERICK DAVIS MD 07/23/18 0839 PATIENT NAME: KEVON KATZ OPERATIVE REPORT DATE OF : 42 REPORT #: [id number] PHYSICIAN: ERICK DAVIS MD PCP: ZEYAD ISRAEL MD REPORT IS CONFIDENTIAL AND NOT TO BE RELEASED WITHOUT AUTHORIZATION [address] [address] Signed After this, our anesthesia provider provided bilateral tap blocks on the abdominal wall. Kevon was then weaned from his anesthesia, extubated in the OR, and we took him down to our ICU in stable but critical condition. Erick Davis MD ALB/MODL /[id number] cc: MD Zeyad Andersen MD Copies: ERICK DAVIS MD, MALCOLM MD ~ Electronically Signed By: ERICK DAVIS MD 07/23/18 0839 PATIENT NAME: KEVON KATZ SARAVANANJEANMARIEWANDA OPERATIVE REPORT DATE OF : 42 REPORT #: [id number] PHYSICIAN: ERICK DAVIS MD PCP: ZEYAD ISRAEL MD REPORT IS CONFIDENTIAL AND NOT TO BE RELEASED WITHOUT AUTHORIZATION
--- NOTE | 2018-07-23 09:20 | NUR ---
DR PANTOJA IN TO ASSESS PT AND DISCUSS PLAN OF CARE. QUESTIONS FROM PT AND ANSWERED.
--- NOTE | 2018-07-23 12:00 | NUR ---
PHYSICAL THERAPY IN ROOM TO ASSESS PT NEEDS.
--- NOTE | 2018-07-23 14:14 | NUR ---
Dr. Peng notified of U/O 75mml for 4 hours. no new orders received
--- NOTE | 2018-07-23 16:30 | NUR ---
LIPIDS AND TPN STARTED AND VERIFIED BY IMAN ERVIN. SEREOUS DRAINAGE AROUND DRAIN INSERTION SITES. CHUCKS AND GOWN CHANGED. DRAINS WNL. SCD'S REPOSITIONED ON LEGS. +2 EDEMA BILAT IN LE. 1+ IN UPPER EXTREMITIES. BOWEL TONES ACTIVE. ICISION DRESSING C/D/I. PT LEFT TO REST WITH DOOR SHUT AND LIGHTS OFF.
--- NOTE | 2018-07-23 18:00 | NUR ---
SHAY SITE LEAKING. DRESSING CHANGED. DRESSING TO MIDLINE REMOVER PER DR ORDER. INCISION WELL APPROXIMATED. LEATHA IN PLACE. NO S/SX OF INFECTION. PT TOLERATED WELL.
--- NOTE | 2018-07-23 18:30 | NUR ---
DR DAVIS CALLED TO UPDATE ON PAIN MANAGEMENT SCHEDULE. [place] RECEIVED FOR [facility].
--- NOTE | 2018-07-23 20:00 | NUR ---
Patient is awake, states "it is very unsanitary in here, there are bugs all over the place." Told patient that bugs are not seen in the room, patient states "I think I am hallucinating." Patient also reports auditory hallucinations stating that he hears two men yelling at each other in the hallway. Is alert and oriented x4, hallucinations are making patient anxious and is fidgiting in bed. HR and BP are within normal limits, peripheral pulses well felt in all extremities, 4+ edema noted in BLE and 2+ edema in BUE, generalized edema to scrotum. Lungs are clear throughout, requires 2L O2 via oxymask, breathing is even and unlabored, denies feeling SOB. Abdomen is tender to light palpation, bowel tones are rare, patient denies flatus. SHAY drains x2 have had minimal serosanguinous output, insertions sites are draining also with serosanguinous output, dressings intact at this time. Catheter present, concentrated yellow urine noted, QS. Midline incision to abdomen in open to air, edges are well approximated, no erythema, no apparent signs of infection. Patient has mulitple bruises scattered across body, various in size. Central line intact, all three lumens have blood return, dressing intact. TPN and lipids infusing per order as well as IVF. Patient states that pain is well controlled, 2/10 in abdomen, denies need for pain medication. Call light within reach.
--- NOTE | 2018-07-23 21:25 | NUR ---
Notified Dr. Peng that patient has had continuous hallucinations since beginning of this shift making patient anxious and restless. Recommended dexmedetomidine gtt, Dr. Peng was agreable, put order in per emar.
--- NOTE | 2018-07-23 22:53 | NUR ---
Dexmedetomidine gtt started at 0.2 mcg/kg/hr, patient continues to feel anxious and restless, reports continued hallucinations, states "they are not as bad as they were earlier." Denies needs at this time, vitals remain WNL, breathing is even and unlabored. Call light within reach.
--- NOTE | 2018-07-24 | NUR ---
Patient resting with eyes closed, breathing is even and unlabored, RR 12, SpO2 95% on 2L O2 via oxymask, FLACC score 0, call light within reach.
--- NOTE | 2018-07-24 01:00 | NUR ---
Continues to rest with eyes closed, vitals WNL, breathing is even and unlabored, RR 12, SpO2 94% on 2L O2, FLACC score 0. Call light within reach.
--- NOTE | 2018-07-24 01:59 | NUR ---
Patient is restful with eyes closed, breathing is even and unlabored, RR between 12 and 14, dexmedetomidine gtt remains at 0.2 mcg/kg/hr. IVF infusing per order, call light within reach.
--- NOTE | 2018-07-24 04:00 | NUR ---
Patient awake, attempting to pull out NGT and pulling on central line, reinforced NGT, function remains intact, central line continues to have blood return in all lumens. Patient is agitated, verbally abusive towards staff, attempting to get out of bed, repeating same questions over and over, does not understand education from RN. With assistance from AZIZA Sotelo, therapeutic communication done, reassured patient that he is being taken care of and that he needs continued monitoring in CCU, patient states that he is going to go home and does not want to be here anymore. With help from AZIZA Sotelo, patient assisted to chair, patient tolerated well, 1PA, per patient's request, states "I need to get of out this god damn bed!" Now that patient is in chair, patient states that he is more comfortable, now resting with eyes closed. Assessment done, no acute changes from previous. Throughout patient's agitation, dexmedetomidine gtt increased to 0.8 mcg/kg/min due to RASS of +3. RASS score now +1, patient now has bradycardia with HR 55 to 60, dexmedetomidine gtt now turned off, will monitor closely. Call light within reach, within view of nurse's station.
--- NOTE | 2018-07-24 07:30 | NUR ---
REPORT RECIEVED. PATIENT IS restful in chair. DENEIS NEED FOR PAIN MEDICATION.
--- NOTE | 2018-07-24 08:00 | NUR ---
ASSESSMENT DONE. REMAINS IN CHAIR. TPN INFUSING. NG PATENT, O2 VIA OXYMASK ON AT 2 L, VAZQUEZ CATH PATENT. SHAY'S X 2 INTACT WITH SMALL AMOUNTOF YELOW FLUID NOTED. ABD INCISION INTACT AND HEALING WELL. ENC PASSIVE RANGE OF MOTION. IN ROOM.
--- NOTE | 2018-07-24 09:00 | NUR ---
DR. DAVIS HERE TO SEE PATIENT. ORDERS RECIEVED. REMAINS IN CHAIR. ENC DEEP BREATHING. ORAL CARE GIVEN.
--- NOTE | 2018-07-24 10:00 | NUR ---
IN CHAIR, WISHES TO GO FOR A WALK IN ROOM. PATIENT USE WALKER TO WALK FROM ONE SIDE OF THE ROOM TO THE OTHER AND BACK. TOLERATED WELL. MOD AMOUNT OF LIGHT YELLOW DRAINAGE NOTED FOR SHAY X 2 DRAINS. DRESSING CHANGED. SPONGE BATH GIVEN WHILE SITTING AT BEDISDE. TOLERATED WELL. PATIENT STATES HE DOES FEEL BETTER TODAY. TALKED ABOUT HOW HE FELT LAST NIGHT AND IS FEELING SORRY FOR HOW HE ACTED. SAID THE MEDICATIONS HE WAS GIVEN LAST NIGHT REALLY HELPED. DENIES THE NEED FOR PAIN MEDICATION AT THIS TIME. AFTER AM CARES, PATIENT BACK TO BED.
--- NOTE | 2018-07-24 11:00 | NUR ---
TRIAL OFF O2. O2 SAT TO 85. O2 BACK AT 2 L VIA OXYMASK. FREQUENT ORAL CARE GIVEN. DR. LUKE HERE TO SEE PATIENT. ORDERS RECIEVED.
--- NOTE | 2018-07-24 14:00 | NUR ---
RESTING WITH HOB ELEVATED. NO DISTRESS NOTED. IS IN ROOM.
--- NOTE | 2018-07-24 15:00 | NUR ---
OOB, AMBULATED AGAIN IN ROOM THEN TO CHAIR. NEEDS MUCH ENCOURAGEMENT TO MOVE.
--- NOTE | 2018-07-24 15:56 | NUR ---
ASSISTED PT BACK TO BED FROM CHAIR. PT AGGIE ACTIVITY WELL. PT IS COOPERATIVE WITH DIRECTION. CALL LIGHT WITHIN REACH. PT DESATS TO 88% ON ROOM AIR WITH ACTIVITY, ONCE BACK IN BED PT PLACED BACK ON 2L VIA OXY MASK.
--- NOTE | 2018-07-24 16:00 | NUR ---
BACK TO BED WITH ASSIST. DENIES NEED FOR PAIN MEDICATION. C/O FEELING BLOATED. NG PATENT. TPN BAG CHANGED WITH NEW TUBING. VAZQUEZ CATH PATENT. FACE FLUSHED. CVC DRESSING INTACT.
--- NOTE | 2018-07-24 18:20 | NUR ---
FRUSTRATED. SAT UP AT BEDSIDE, THEN STOOD. TOLERATED WELL. NEEDS MUCH ENCOURAGEMENT.
--- NOTE | 2018-07-24 19:30 | NUR ---
SHIFT REPORT RECEIVED FROM AZIZA RIVERA. PT GREGORSusie RESTING IN BED. 2L O2 VIA OM IN PLACE. NG TO L.I.S., PATENT. GEORGE PATENT. TPN INFUSING WNL THROUGH CENTRAL LINE, DRESSING INTACT. CALL LIGHT WITHIN REACH.
--- NOTE | 2018-07-24 19:30 | NUR ---
IN BED RESTFUL.
--- NOTE | 2018-07-24 20:30 | NUR ---
ASSESSMENT COMPLETED. PT IS SLIGHTLY DROWSY, BUT ORIENTED, DENIES HALLUCINATIONS. ABDOMINAL PAIN RATED 4/10, PRN TORADOL PROVIDED. LUNGS CLEAR/DIM, 2L VIA OM IN PLACE. HR REGULAR, DENIES SOB OR CHEST PAIN. NG TO L.I.S., PATENT. CENTRAL LINE HAS GOOD BLOOD RETURN, DRESSING INTACT, NO REDNESS OR SWELLING NOTED AT INSERTION SITE. BOWEL TONES ARE HYPOACTIVE, PT DENIES FLATUS. MIDLINE INCISION IS WELL APPROXIMATED, LEATHA INTACT, INCISION TO RLQ IS OPEN TO AIR AND WELL APPROXIMATED, BOTH SITES APPEAR TO BE HEALING WELL WITHOUT S/SX OF INFECTION. VAZQUEZ PATENT, CATH CARE PROVIDED, SCANT AMOUNT OF BROWN/GIFFORD DISCHARGE NOTED FROM MEATUS. SWELLING NOTED TO BUE, BLE, AND SCROTUM. SCD'S IN PLACE. CALL LIGHT WITHIN REACH. SHAY DRAINS X2 TO RIGHT ABDOMEN, OSTOMY APPIANCE OVER INSERTION SITES TO COLLECT SMALL AMOUNT OF SEROUS DRAINAGE. TPN INFUSING PER ORDER. CALL LIGHT WITHIN REACH.
--- NOTE | 2018-07-24 22:05 | NUR ---
PT OBSERVED PULLING AT OXYMASK. ASSISTED PT TO PLACE MASK BACK ON FACE, PT STATES " I CAN'T BREATHE THROUGH THAT!" ON RA, SPO2: 90%. TITRATED OXYGEN TO 3L, PT STATES "I CAN FEEL THAT NOW." OXYGEN TITRATED BACK TO 2L. PRECEDEX DRIP STARTED AT 0.2 MCG/KG/HR TO HELP PT RELAX AND SLEEP.
--- NOTE | 2018-07-24 22:58 | NUR ---
PT HEARD COUGHING, OBSERVED HIM PULLING AT HIS OXYMASK, WAS ABLE TO DEDUCE THAT PT NEEDED TO SPIT. PT PRODUCED SMALL AMOUNT OF RED/BROWN SPUTUM. NOTICED AT THIS TIME THAT NG STATLOCK APPEARED TO BE SLIPPING OFF. REMOVED AND PREPPED SKIN WITH MASTISOL AND SECURED NG WITH PINK TAPE. NG IS PATENT. PT STATES "I DON'T THINK I NEED THIS TUBE ANYMORE." EXPLAINED TO PT WHY NG REMAINS NECESSARY AT THIS TIME. PRECEDEX DRIP INCREASED TO 0.4 MCG/KG/HR TO HELP PT RELAX AND SLEEP.
--- NOTE | 2018-07-25 00:12 | NUR ---
PT SLEEPING, NO APPARENT DISTRESS. PRECEDEX INFUSION CONTINUES AT 0.4MCG/KG/HR. RESPIRATIONS EVEN AND UNLABORED, RR:16, SPO2:94% ON 2L OXYMASK. LUNGS SOUNDS REMAIN CLEAR, DIM IN BASES. HR REGULAR. BOWEL TONES HYPOACTIVE. NG PATENT. SHAY SITES X2 TO RIGHT ABDOMEN, SCANT AMOUNT OF SEROUS DRAINAGE PRESENT. SURGICAL SITES REMAIN UNCHANGED AND WNL. VAZQUEZ PATENT. EDEMA UNCHANGED. WILL ALLOW FOR REST AND CONTINUE TO MONITOR.
--- NOTE | 2018-07-25 03:17 | NUR ---
PT SLEEPING SOUNDLY AT THIS TIME. DOES NOT APPEAR TO BE IN ANY DISTRESS. RESPIRATIONS EVEN AND UNLABORED, RR:13, SPO2:95% ON 2L OXYMASK, HR:64. PRECEDEX DRIP CONTINUES AT 0.4 MCG/KR/HR. WILL ALLOW FOR REST AND CONTINUE TO MONITOR.
--- NOTE | 2018-07-25 06:17 | NUR ---
PRECEDEX DRIP OFF AT THIS TIME. MORNING LABS DRAWN FROM CENRAL LINE. SHAY DRAINS EMPTIED. PT SLIGHTLY DROWSY, DENIES PAIN. DENIES REQUESTS AT THIS TIME.
--- NOTE | 2018-07-25 08:10 | NUR ---
PT IS ALERT AND ORIENTED X4, PT DENIES PAIN, NAUSEA, AND SOB AT THIS TIME. CENTRAL LINE IS INTACT, NO REDNESS OR SWELLING NOTED AT SITE. VITALS WNL EXCEPT FOR SLIGHT ELEVATION IN TEMP, 15 MG IV TORADOL OFFERED FOR FEVER. PT AGREEABLE TO THIS MEDICATION. PT STATES DESIRE TO AMBULATE TODAY.
--- NOTE | 2018-07-25 09:10 | NUR ---
PT UP OUT OF BED WITH ONE PERSON ASSIST TO AMBULATE IN THE HALLS. ALL LINENS CHANGED.
--- NOTE | 2018-07-25 10:00 | NUR ---
PT BACK TO BED FROM AMBULATION IN THE [place] WITH PHYSICAL THERAPY. PT ALSO SAT AT THE SIDE OF THE BED FOR ABOUT 15 MIN. PT DENIES PAIN, NAUSEA, AND SOB AT THIS TIME. VITALS WNL. PT AGGIE ACTIVITY VERY WELL.
--- NOTE | 2018-07-25 10:38 | NUR ---
PT HAD SMALL SOFT BM, STATES HE THOUGH IT WAS GOING TO BE FLATUS. PT ASSISTED IN ROLLING FROM SIDE TO SIDE. CLEAN CHUCKS IN PLACE.
--- NOTE | 2018-07-25 16:50 | NUR ---
PT BACK TO BED FROM AMBULATING TWO FULL LAPS IN THE [place]. PT AGGIE ACTIVITY WELL, ABLE TO WALK WITH WALKER AND STANDBY ASSIST. PT DENIES SOB, NAUSEA, AND PAIN AT THIS TIME. CENTRAL LINE INTACT, NO SWELLING OR REDNESS NOTED, PT DENIES PAIN AT THE SITE.
--- NOTE | 2018-07-25 17:11 | NUR ---
FULL BED BATH DONE FOR PT, VAZQUEZ CATH CARES DONE, GOWN AND LINENS CHANGED. PT SCD'S BACK IN PLACE, NG TUBE TO LIS. AT THE BEDSIDE.
--- NOTE | 2018-07-25 20:22 | NUR ---
SHIFT REPORT WAS RECEIVED FROM AZIZA TERAN. ASSESSMENT COMPLETED AT THIS TIME. PT IS ALERT/ORIENTED, RESTING IN BED. DENIES PAIN AND NAUSEA. LUNGS CLEAR, DIM IN BASES, 2L OXYMASK IN PLACE, PRODUCTIVE COUGH. HR REGULAR. BOWEL TONES ACTIVE. VAZQUEZ PATENT, CATH CARE PROVIDED, SCROTAL EDEMA REMAINS. CENTRAL LINE PATENT, DRESSING INTACT, NO SWELLING OR REDNESS NOTED AT INSERTION SITE. SURICAL INCISIONS X2 TO ABDOMEN BOTH APPEAR WELL APPROXIMATED WITHOUT S/SX OF INFECTION, LEATHA TO MIDLINE SITE INTACT. SHAY DRAINS X2 TO RIGHT ABDOMEN, OSTOMY APPIANCE OVER INSERTION SITES FOR DRAINAGE COLLECTION, SCANT AMOUNT OF SEROUS DRAINAGE PRESENT. NG TO L.I.S., PATENT, SECUREMENT DEVICE INTACT. NO REQUESTS AT THIS TIME, CALL LIGHT WITHIN REACH.
--- NOTE | 2018-07-25 20:46 | NUR ---
PT CALLED AND REPORTED THAT ALL THE COUGHING HE WAS DOING WAS MAKING HIS ABDOMEN HURT. PRN TORADOL GIVEN, DISCUSSED WITH HIM THE IMPORTANCE OF CONTINUING COUGHING. R.T. IN TO ASSESS PT.
--- NOTE | 2018-07-25 21:29 | NUR ---
PRECEDEX DRIP STARTED AT THIS TIME AT 0.2MCG/KR/HR TO HELP PT RELAX AND SLEEP.
--- NOTE | 2018-07-25 22:41 | NUR ---
PT SLEEPING SOUNDLY AT THIS TIME. RESPIRATIONS EVEN AND UNLABORED, RR:14, HR:88, SPO2: 96% ON 2L. WILL ALLOW FOR REST AND CONTINUE TO MONITOR.
--- NOTE | 2018-07-26 00:40 | NUR ---
PT CONTINUES TO SLEEP SOUNDLY, NO APPARENT DISTRESS. RESPIRATIONS EVEN AND UNLABORED, RR:14, HR:78, SPO2:95% ON 2L. NG PATENT. VAZQUEZ PATENT. IVF INFUSING WNL, CENTRAL LINE DRESSING INTACT. PRECEDEX CONTINUES AT 0.2MCG/KG/HR. WILL ALLOW FOR REST AND CONTINUE TO MONITOR.
--- NOTE | 2018-07-26 04:15 | NUR ---
ASSESSMENT COMPLETED AND UNCHANGED. PT UP TO BSC WITH 1-PA AND FWW, HAD MEDIUM SIZED, GELATINOUS, YELLOW BM. PERICARE PROVIDED. NEW BLANKETS AND GOWN PROVIDED. SHAY DRAINS EMPTIED OF 25ML TOTAL SEROUS DRAINAGE. NEW CHUX ON BED. NG REMAINS PATENT, NOT MUCH OUTPUT NOTED. IVF INFUSING WNL, CENTRAL LINE DRESSING INTACT, SITE WNL. PT DENIES PAIN AND NAUSEA. PRECEDEX CONTINUES AT 0.2MCG/KG/HR TO HELP PT SLEEP. NO FURTHER REQUESTS AT THIS TIME, CALL LIGHT WITHIN REACH.
--- NOTE | 2018-07-26 05:45 | NUR ---
MORNING LABS DRAWN FROM CENTRAL LINE BY THIS RN. PRECEDEX DRIP NOW OFF.
--- NOTE | 2018-07-26 06:55 | NUR ---
DR. DAVIS IN TO ASSESS PT. OSTOMY APPLIANCE REMOVED FROM SHAY INSERTION SITES. PLAN TO TRANSFER PT TO MED-SURG TODAY.
--- NOTE | 2018-07-26 07:58 | NUR ---
PATIENT NOTED TO HAVE SVT IN THE 140s RANGE AT 0735. REVIEWING TELEMETRY SHOWS PATIENT HAS BEEN HAVING SHORT THOMAS OF SVT THROUGH THE NIGHT AND YESTERDAY AFTERNOON/EVENING. PATIENT IS NOW BACK IN AN ACCELERATED JUNCTIONAL RHYTHM. PT WAS ASYMPTOMATIC WITH THIS EPISODE OF SVT. PATIENT AWAKE, ALERT, ORIENTED, BUT PAINFUL AT A 5/10 WHEN HE COUGHS. ASSESSMENT COMPLETE. PATIENT NOTED TO HAVE 2+ EDEMA IN LOWER LEGS, ESPECIALLY IN ANKLES/FEET. NGT REMAINS CONNECTED TO LIS. TPN INFUSION. CENTRAL LINE IN RIGHT IJ. CONTINUE TO MONITOR. DR. DAVIS TO BE CALLED REGARDING PATIENT'S SVT. ORDERS IN CHART TO TRANSFER PATIENT TO MED/SURG.
--- NOTE | 2018-07-26 10:39 | NUR ---
PHYSICAL THERAPY IN TO SEE PATIENT AT THIS TIME. VAZQUEZ EMPTIED FOR 1260 ML CLEAR, DILUTE URINE.
--- NOTE | 2018-07-26 11:00 | NUR ---
PATIENT WALKED WITH PHYS THERAPY APPROX 295 FEET. PATIENT'S REPORTS THAT HIS NORMAL RESTING HEART RATE IS IN THE 40s. PT HAS REMAINED IN THE 80-90s, ACCELERATED JUNCTIONAL RHYTHM. CONTINUE TO MONITOR.
--- NOTE | 2018-07-26 11:45 | NUR ---
PATIENT GIVEN BATH WHILE SITTING IN CHAIR. PATIENT'S GOWN CHANGED, WELL HIS LINEN. PATIENT THEN WANTING TO GET BACK INTO BED AND HELPED WITH A STAND BY ASSIST TO DO THIS. PATIENT HAS BEEN OFF OXYGEN NOW SINCE BEFORE WORKING WITH PHYSICAL THERAPY AND IS STILL MAINTAING HIS SP02 >90%. PATIENT NOTED TO HAVE 2-3+ EDEMA IN HIS LOWER LEGS AND ANKLES, AND 2+ IN HIS FOREARMS DEPENDENT JAMIR. PT CONTINUES ON LOW INTERMITTENT SUCTION PER HIS NG TUBE. PT'S LEAVES AT THIS TIME FOR A WHILE, BUT STATES SHE WILL RETURN SOON. CONTINUE TO MONITOR.
--- NOTE | 2018-07-26 13:28 | NUR ---
PT SITTING IN BED, NG TUBE IN. PT WAS COUGHING AND ABLE TO SPIT WITH TUBE IN. TALKED WITH QUIET VOICE, HAD GOOD VISIT. PT MENTIONED THAT HIS TEST MAN HAD BEEN BY TO VISIT YESTERDAY AFTER [facility]. THIS SEEMED TO PLEASE HIM. PT WRITES ARTICLES FOR THE NEWSPAPER AND IS REALLY MISSING NOT BEING ABLE TO NOW. I EXTENDED A BLESSING, HE THANKED ME FOR COMING BY. WILL FOLLOW NEEDED
--- NOTE | 2018-07-26 14:15 | NUR ---
PATIENT GIVEN YANKEUR FOR SUCTIONING HIS SECRETIONS, WHICH HE IS HAVING A LOT OF AT THIS TIME. PT'S SON NOW IN ROOM VISITING WITH PATIENT. PT GIVEN 2.5 MG IV LOPRESSOR. PATIENT REMAINS OFF OXYGEN AT THIS TIME, WITH SP02 94% CURRENTLY. TPN TO BE CHANGED OUT THIS AFTERNOOON AND LIPIDS TO INFUSE. CONTINUE TO MONITOR CLOSELY.
--- NOTE | 2018-07-26 16:02 | NUR ---
PATIENT HAD ANOTHER SVT EPISODE AT THIS TIME. PT DENIES FEELING SYMPTOMATIC AT ALL. DR. DAVIS AND DR. LUKE TO BE CALLED.
--- NOTE | 2018-07-26 16:12 | NUR ---
DR. DAVIS AND DR. LUKE CALLED REGARDING PATIENT'S SVT. NO FURTHER ORDERS AT THIS TIME.
--- NOTE | 2018-07-26 17:11 | NUR ---
DR. LUKE UPDATED AGAIN ON PT'S HEART RATE AND LUNG SOUNDS. CHEST XRAY ORDERED AND COMPLETED. POTASSIUM ALSO GIVEN THROUGH IV, SEE EMAR. PT CONTINUES TO BE ON ROOM AIR AND DENIES SHORTNESS OF BREATH, BUT CONTINUES TO HAVE LOTS OF SPUTUM THAT HE IS COUGHING UP AND OUT. PT ENCOURAGED TO USE IS WELL. PT'S AT BEDSIDE AND ASKING GOOD QUESTIONS.
--- NOTE | 2018-07-26 18:21 | NUR ---
PATIENT WALKED AGAIN IN [place] FOR THE THIRD TIME TODAY. PATIENT WALKED APPROX 300 FEET EACH TIME, AND TOLERATED WELL. PT ALSO BRUSHED HIS TEETH UPON RETURNING TO HIS ROOM. CALL LIGHT WITHIN REACH AND PATIENT DENIES FURTHER NEEDS. CONTINUE TO MONITOR.
--- NOTE | 2018-07-26 19:30 | NUR ---
RECEIVED REPORT AT 1900, FOUND PT IN BED AWAKE. PT HAD NO NEEDS OR CONCERNS.
--- NOTE | 2018-07-26 20:00 | NUR ---
PT AAOX4, ALL LOBES CLEAR, BOWEL TONES DISTANT BUT PRESENT OVERALL, +3 GENERALIZED EDEMA PRESENT, RADIAL AND PEDIS PULSES +2, ABD MIDLINE INCISION C/D/I, V/S THUS FAR ARE WDL. NG TUBE FLUSHED WITH 40ML H20. HEAD ELEVATED AT 30 DEGREES, NG TUBE ON L/I/S.
--- NOTE | 2018-07-26 22:06 | NUR ---
URINE OUTPUT SINCE START OF SHIFT HAS BEEN EXCELLENT DUE TO LASIX, SEE I&O. PAIN PER PT IS 1/10 AT THIS TIME. PT HAD AN ELEVATED HR AND BP EARLIER, IV LOPRESSOR WAS GIVEN. WILL CONTINUE TO MONITOR. NO NEW CONCERNS NOTED SO FAR.
--- NOTE | 2018-07-26 22:55 | NUR ---
PT AT THIS TIME IS SLEEPING. NO NEW CONCERNS NOTED. HR AND BP HAVE DECREASED SOME.
--- NOTE | 2018-07-27 | NUR ---
PT AAOX4 BUT PT CALLED OUT AT 2350 AND WAS NOT ABLE TO REMEMBER WHAT HE NEEDED. ALL LOBES ARE CLEAR BUT RLL IS DIMINISHED. ABD SOUNDS HYPOACTIVE AND DISTANT, ABD FIRM AND TENDER TO TOUCH. INCISION IS C/D/I, SHAY DRAINS HOWEVER WERE LEAKING AND SITE HAS RE-INFORCED WITH ABD PAD. NG TUBE IS STILL DRAINING BROWN LIQUID, URINE OUTPUT IS ADEQUATE.
--- NOTE | 2018-07-27 02:00 | NUR ---
PT IS RESTING WITH EYES CLOSED. URINE OUTPUT IS STILL ADEQUATE, HR IN THE 90'S-110. TEMP AT 0000 WAS 100.8F. WILL CONTINUE TO MONITOR.
--- NOTE | 2018-07-27 02:53 | NUR ---
PT WAS COMPLAINING OF PAIN 07/19. PT ALSO COMPLAINED OF INCREASING PAIN IN BLADDER. VAZQUEZ WAS MANIPULATED AND THERE WAS NO SIGNIFICANT AMOUNT OF URINE DRAINING. BLADDER SCAN SHOWED <26ML PRESENT. ABOVE DARRYN OF BLADDER HOWEVER, SEVERAL SMALL POCKETS OF FLUIDS WERE NOTED. WILL CONTINUE TO MONITOR.
--- NOTE | 2018-07-27 04:30 | NUR ---
PAIN AT THIS TIME IS 1/10. TEMP AT THIS TIME IS 99.9 F. URINE OUTPUT IS STILL ADEQUATE, SHAY-DRAINS HAD 10ML OUT AND SOME ON THE INSERTION SITE DRESSING. ALL LOBES ARE CLEAR, NO CHANGES IN ABD SOUNDS FORM REVIOUS ASSESSMENT. PT DENIES "FEELING OF A FULL BLADDER" AT THIS TIME. PT ALSO DENIES PASSING GAS SINCE START OF SHIFT.
--- NOTE | 2018-07-27 05:08 | NUR ---
PT JUST HAD A 6 SECOND RUN OF SVT. LOPRESSOR IV 2.5MG WAS GIVEN. PT WAS ASYMPTOMATIC.
--- NOTE | 2018-07-27 06:19 | NUR ---
PT WAS AAOX4 ALL SHIFT WITH SOME FORGETFULLNESS PRESENT AT TIMES. LOBES WERE CLEAR OVERALL WITH THE RLL DIMINISHED AT TIMES. PT STILL HAS LOTS OF PHLEGM, SUCTION AT BEDSIDE. PT REMAINED ON RA ALL NIGHT. ABD INCISION IS C/D/I, ABD SOUNDS ARE DISTANT AND ACTIVE TO HYPOACTIVE AT TIMES. SHAY-DRAINS WERE LEAKING AT INSERTION SITE AND ABD PAD WAS CHANGED. OUTPUT WITHIN THE DRAINS WAS 10ML THIS SHIFT. ABD IS TENDER AND AT START OF SHIFT WAS FIRM TO TOUCH. PT HOWEVER HAS DENIED FLATUS ALL SHIFT. URINE OUPUT WAS ADEQUATE ALL SHIFT. PAIN OVERALL WAS NOT AN ISSUE. PT RECEIVED 15MG IV TORADOL X1 FOR PAIN 07/19. AT 0000 PT HAD A TEMP OF 100.8 F. AT 0600 TEMP WAS 99.9 F. THE TORADOL HELPED. BP'S OVERALL WERE SOMEWHAT ELEVATED MOST OF THE SHIFT, HR WAS ANYWHERE FROM THE 80'S -110. AT 0500 PT HAD A 6 SECOND RUN OF SVT. LOPRESSOR WAS GIVEN.
--- NOTE | 2018-07-27 06:40 | NUR ---
NG-TUBE D/C PER MD DAVIS.
--- NOTE | 2018-07-27 07:53 | NUR ---
PATIENT LYING IN BED UPON INITIAL ASSESSMENT AND IN GOOD SPIRITS. PT RECENTLY HAD NGT REMOVED AND IS FEELING BETTER WITH THIS OUT. PATIENT STATES HE SPENT MUCH OF THE NIGHT COUGHING UP SPUTUM STILL. LUNGS SOUNDS ARE MORE CLEAR T0DAY THROUGHOUT THAN YESTERDAY, DIM IN BASES STILL WITH R>L. SP02 IS 93% ON ROOM AIR AND PT STAYED ON ROOM AIR THROUGH NIGHT. VAZQUEZ DRAINING YELLOW URINE. PLAN OF CARE DISCUSSED AND GOALS MADE WITH PATIENT FOR THE DAY. TPN INFUSING AT 83.7 ML/HR. HR IN THE 80s, ACCELERATED JUNCTIONAL. SCDs ON. PT RATIGN PAIN 1/10 AT THIS TIME IN HIS ABDOMEN. HYPOACTIVE BS HEARD X 4 QUAD. INCISIONS WELL APPROX, DRY, WITH SOME CRUSTY DRAINAGE. SHAY DRAINS X 2 WITH SEROUS FLUID IN THEM, MINIMAL AMOUNTS. CONTINUE TO MONITOR CLOSELY. CALL LIGHT WITHIN REACH.
--- NOTE | 2018-07-27 09:12 | NUR ---
PATIENT UP TO BATHROOM TO ATTEMPT TO HAVE A BM BUT UNSUCCESSFUL. PT BACK TO BED AND REFUSES TO SIT IN CHAIR BECAUSE OF HOW UNCOMFORTABLE CHAIR IS. PT IS MOVIGN WELL. STANDING WEIGHT SHOWS SOME WEIGHT LOSS FROM YESTERDAY. PT'S ARRIVES AT THIS TIME. CONTINUE TO MONITOR.
--- NOTE | 2018-07-27 10:26 | NUR ---
PATIENT RESTING AT THIS TIME. PT'S IN ROOM. BLOOD CULTURES AND URINE CULTURES TO BE DRAWN. PATIENT ADN UPDATED ON THIS.
--- NOTE | 2018-07-27 10:49 | NUR ---
BLOOD CULTURES AND URINE CULTURES SENT TO LAB. ONE SET DRAWN FROM BROWN PORT OF CENTRAL LINE, ANOTHER SET DRAWN FROM RIGHT AC PER LAB. PT RESTING. PT REMAINS IN ACCELERATED JUNCTIONAL RHYTHM. CONTINUE TO MONITOR.
--- NOTE | 2018-07-27 11:42 | NUR ---
TPN CONTINUES. REMAINS NPO OTHERWISE. PREALBUMIN YESTERDAY WAS 10.5, UP FROM 6.1 FROM 07/23/18. ELECTROLYTES ARE WNL. POC GLUCOSE 141 THIS AM. NGT IS OUT. AVERAGE CALORIES PROVIDED IN TPN ARE 2,188 (29 CALORIES/KG) AND 100 GRAMS PROTEIN (1.35 GM/KG) PER 24 HOURS. WILL CONTINUE TO MONITOR.
--- NOTE | 2018-07-27 11:53 | NUR ---
PT MEAGAN AHUMADA, AT BS. GAVE PT Sil MELARA, HE SEEMED PLEASED. I COULD TELL HIS WAS. LAB IN TO DO DRAWS, WILL CHECK BACK
--- NOTE | 2018-07-27 12:23 | NUR ---
PATIENT WANTING TO WAIT TO WALK TO WORK WITH PHYSICAL THERAPY. PT STATES HE IS WITHOUT PAIN AT THIS TIME AND RESTING WELL. VAZQUEZ CONTINUES TO DRAIN YELLOW URINE. LASIX TO BE GIVEN AT 1300.
--- NOTE | 2018-07-27 13:01 | NUR ---
DR. LUKE IN TO SEE PATIENT. PLAN FO CARE DISCUSSED. MORE BLOOD CULTURES WILL BE DRAWN FROM CENTRAL LINE. 20 MG IV LASIX GIVEN AT THIS TIME.
--- NOTE | 2018-07-27 13:59 | NUR ---
PATIENT UP AND IN BATHROOM AT THIS TIME TO SHAVE. PT TOLERATES MOVING WELL. WAITING FOR PHYSICAL THERAPY TO PERFORM HIS PT FOR THE DAY.
--- NOTE | 2018-07-27 14:12 | NUR ---
PATIENT WALKED IN [place] AND NOW WORKING WITH PHYSICAL THERAPY. PLAN TO GIVE PATIENT A SHOWER THIS AFTERNOON.
--- NOTE | 2018-07-27 14:13 | NUR ---
OF NOTE, PATIENT IS MORE TENDER IN HIS ABDOMEN AND WANTED TO BRACE HIS ABDOMEN WHILE WALKING TODAY, WHICH HE DID NOT DO YESTERDAY. PATIENT IS ALSO SEEMINGLY MORE IRRITATED TODAY AND OVERALL FRUSTRATED. PT'S AND SON IN ROOM.
--- NOTE | 2018-07-27 16:35 | NUR ---
PATIENT WALKS INTO SHOWER IN 126 AND GIVEN A SHOWER. PT TOLERATED THIS WELL. PT ABLE TO HAVE A SMALL BM, LOOSE. PATIENT HELPED BACK TO BED AND NOW RESTING. FUNGAL BLOOD CULTURES WERE ALSO ADDED TO THE PREVIOUS BLOOD CULTURES THAT WERE DRAWN EARLIER TODAY. NO FURTHER NEEDS IDENTIFIED AT THIS TIME. CONTINUE TO MONITOR.
--- NOTE | 2018-07-27 18:17 | NUR ---
CENTRAL LINE DRESSING CHANGED PER PROTOCOL. PT TOLERATED WELL.
--- NOTE | 2018-07-27 19:30 | NUR ---
RECEIVED REPORT AT 1900, FOUND PT IN BED SLEEPING.
--- NOTE | 2018-07-27 20:00 | NUR ---
TEMP IS 99.9 F. ELEVATED BP AT 151/79, OTHER V/S ARE WDL. PT IS STILL IN AN ECELLERATED JUNCTIONAL RHYTHM 80'S-90'S. ALL LOBES ARE CLEAR, PT HAS MUCH LESS PHLEGM IS SEEMS SO FAR, ABD SOUNDS ARE STILL HYPOACTIVE TO ACTIVE, ABD DISTENTION IS MILD TO MODERATE, PT DENIES PAIN AND N/V, INCISION ABD MIDLINE IS C/D/I, ABD IS TENDER BUT SOFTER TO TOUCH THAN LAST NIGHT. SHAY-DRAINS IN PLACE WITH VERY MINIMAL OUTPUT SO FAR. SCROTAL EDEMA UNCHANGED SINCE LAST NIGHT, URINE OUTPUT ADEQUATE SO FAR, EDEMA IN ARMS, LOWER LEGS, ANKLES AND FEET IS +2 TO +3 IN SOME PLACES. OVERALL PT DOES LOOK BETTER THAN LAST NIGHT. WILL LET PT SLEEP FOR MUCH POSSIBLE THIS SHIFT. WILL CONTINUE TO MONITOR.
--- NOTE | 2018-07-27 22:00 | NUR ---
PT IS SLEEPING AT THIS TIME. NO NEW CONCERNS NOTED SO FAR.
--- NOTE | 2018-07-27 23:49 | NUR ---
PT COMPLAINED OF A FULL BLADDER. VAZQUEZ WAS MANIPULATED AND POSITION WAS CHANGED. URINE OUTPUT IS ADEQUATE. PT DENIES PAIN AND N/V.
--- NOTE | 2018-07-28 01:00 | NUR ---
PT CALLED OUT AGAIN FOR PRESSURE IN HIS BLADDER. THIS TIME HIS VAZQUEZ HELD ON TO A GOOD AMOUNT OF URINE. PERHAPS THERE WAS AN AIRLOCK. BLADDER SCAN WAS DONE WHICH SHOWED <10ML OF URINE PRESENT. PT STILL FEELS THE SAME PRESSURE. WILL CONTINUE TO MONITOR. IT MAY NOT BE A BAD IDEA TO DO ANOTHER ABD CT SCAN ON THIS PT. ABD SOUND HYPOACTIVE, PT DENIES FLATUS, DISTENTION IS MODERATE BUT SOFT TO TOUCH.
--- NOTE | 2018-07-28 03:56 | NUR ---
PT AT THIS TIME DENIES PRESSURE ON BLADDER WITH THE NEED TO URINATE. PAIN 2/10 AFTER 15MG IV TORADOL WAS GIVEN. PT IS BACK TO SLEEP.
--- NOTE | 2018-07-28 05:59 | NUR ---
URINE OUTPUT IS GREAT, SHAY-DRAINS HAD 5ML OUT THIS SHIFT, NO DRESSING CHANGE WAS REQUIRED EITHER. PT NO LONGER COMPLAINES OF PRESSURE IN HIS BLADDER, V/S WDL WITH ELEVATED BP, STILL ACCELATED JUNCTIONAL RHYTHM WITH OCCASIONAL NORMAL P-WAVES NOTED THIS SHIFT. LOBES ARE CLEAR, PT HAS BEEN ON RA ALL NIGHT. PT DID SLEEP MOST OF THIS SHIFT. ABD IS MODERATELY DISTENDED BUT SOFT TO TOUCH, PT DENIES N/V AND PAIN AT THIS TIME. ABD INCISION IS C/D/I. NO FLATUS NOTED BY PT THIS SHIFT. NO EPISODES OF SVT SO FAR THIS SHIFT. HR IN THE 70'S-90'S ALL NIGHT.
--- NOTE | 2018-07-28 07:55 | NUR ---
PATIENT RESTING IN BED UPON INITIAL ASSESSMETN AND STATES HE SLEPT FAIRLY WELL LAST NIGHT. PT RATING HIS PAIN MINIMAL, ABOUT A 1-2 THIS AM IN HIS ABDOMEN. PT NOTES THAT WHEN HE COUGHS, HIS PAIN INCREASES TO ABOUT A 5, BUT IS OTHERWISE VERY TOLERABLE. EDEMA LESSENING EVERYDAY AND MORE VISIBLE WRINKLING NOTED IN ARMS. LEGS CONTINUE TO HAVE 3+ EDEMA IN ANKLES AND FEET, BUT IS OVERALL LESS. PT STILL HAS GEN EDEMA AROUND TORSO. VAZQUEZ DRAINING GOOD AMOUTNS OF URINE. STANDING WEIGHT TO BE OBTAINED. PT STATES HE IS HUNGRY AND WANTING TO TRY TO EAT SOMETHING SOON. WILL DISCUSS WITH DR. SUSAN PACHECO. TPN CONTINUES AT 83 ML/HR. BOWEL SOUNDS PRESENT AND ACTIVE X4 QUAD. PT CONTINUES TO HAVE PRODUCTIVE SPUTUM AND USES YANKEUR FOR SUCTION. CALL LIGHT WITHIN REACH. PLAN OF CARE DISCUSSED WITH PATIENT.
--- NOTE | 2018-07-28 08:34 | NUR ---
DR. LUKE IN TO SEE PATIENT. NO FURTHER ORDER REC'D AT THIS TIME.
--- NOTE | 2018-07-28 10:05 | NUR ---
PATIENT WORKING WITH PHYSICAL THERAPY AT THIS TIME AND AMBULATING IN HALLWAY. DISCUSSED WITH DR. DAVIS PLAN OF CARE. PATIENT TO HAVE VAZQUEZ D/C AND CAN BE ADVANCED TO A FULL LIQUID DIET.
--- NOTE | 2018-07-28 10:43 | NUR ---
VAZQUEZ CATHETER D/C. PT TOLERATED WELL. DISCUSSED UPDATES WITH DR. LUKE AND DR. LUKE STATES HE IS OKAY WITH PATIENT TRANSFERRING OUT OF CCU AND OVER TO MED/SURG ON TELEMETRY. WILL UPDATE DR. DAVIS WHEN HE RETURNS TO UNIT. PATIENT EATING A FULL LIQUID TRAY AT THE MOMENT. CONTINUE TO MONITOR.
--- NOTE | 2018-07-28 11:45 | NUR ---
PATIENT TOLERATED HIS FULL LIQUID DIET WELL WITHOUT NAUSEA. PT NOW WANTING TO REST. PT MOVED TO A TELEMETRY. CONTINUE TO MONITOR.
--- NOTE | 2018-07-28 14:10 | NUR ---
DR. DAVIS IN TO SEE PATIENT AT THIS TIME. PLAN TO TRANSFER TO MEDICAL FLOOR ON TELEMETRY, CONTINUE TPN, AND TAKE LEATHA OUT.
--- NOTE | 2018-07-28 14:58 | NUR ---
LEATHA REMOVED FROM ABDOMINAL MIDLINE INCISION. PT TOELRATED WELL. SKIN IS REDENNED AROUND WHERE LEATHA WERE. PT NOW SITTING ON COMMODE TO VOID. PATIENT WILL BE TRANSFERRING TO ROOM [address] DAVIS. PT'S SON IN ROOM AND UPDATED ON PLAN.
--- NOTE | 2018-07-28 16:25 | NUR ---
PT ARRIVED TO FLOOR BY AMBULATION OLINDA CCU WIHT NURSE AT SIDE. PT IS AAO. ORIENTED TO ROOM. VITALS TAKEN AND STABLE. CALL LIGHT INREACH. WATER PROVIDED.
--- NOTE | 2018-07-28 16:40 | NUR ---
PT RESTING SUPINE IN BED, ALERT AND ORIENTED. PT ASSESSMENT COMPLETED. PT DENIES NAUSEA, PAIN OR SOB. FAMILY AT BEDSIDE CALL LIGHT AND H2O IN REACH. PT APPEARS TO BE IN NO ACUTE DISTRESS AND DENIES NEEDS/CONCERNS.
--- NOTE | 2018-07-28 18:55 | NUR ---
PT ATTEMPTS TO SWALLOW AUGMENTIN WITH H2O, PT DECLINED PUTTING IT IN APPLESAUCE FOR EASE OF SWALLOWING. PT HAD COUGHING FIT AND UNABLE TO SWALLOW PILL. PT ENCOURAGED TO SPLINT WITH PILLOW WHEN COUGHING. SMALL AMOUNT OF BLOOD NOTED TO INCISION WHERE A SMALL SCAB APPEARS TO HAVE COME OFF. SKIN REMAINS WELL APPROXIMATED. 4X4 GUAZE AND TAPE APPLIED TO AREA AND PT ENCOURAGED TO BE SURE TO USE PILLOW WHILE SPLINTING. PT TAKES PILL CRUSHED IN APPLESAUCE WITHOUT DIFFICULTY. CALL LIGHT AND H2O IN REACH. PT DENIES FURTHER NEEDS/CONCERNS.
--- NOTE | 2018-07-28 19:00 | NUR ---
SHIFT REPORT RECEIVED FROM BECCA CÁRDENAS AT BEDSIDE. PT AWAKE AND RESTING IN BED. TPN AND LIPIDS INFUSING PER MD ORDERS. WHILE DAYSHIFT RN SHOWED THIS RN ABDOMINAL INCISION, BRIEF PULSATING BLOOD FROM INCISION WAS NOTED. SITE REINFORCED AND BLEEDING WAS RESOLVED. WILL NOTIFY DR DAVIS AND MONITOR. NO FURTHER NEEDS AT THIS TIME, CALL LIGHT IN REACH.
--- NOTE | 2018-07-28 19:00 | NUR ---
CHARGE NURSE REPORT RECEIVED. PT IN BED WITH PRIMARY NURSES IN ROOM.
--- NOTE | 2018-07-28 20:00 | NUR ---
DR DAVIS MADE AWARE OF BLEEDING AT ABDOMINAL SITE DURING SHIFT REPORT (SEE PREVIOUS NOTE). NO NEW ORDERS, PER DR DAVIS OKAY TO CONTINUE AND ADMINISTER SCHEDULED HEPARIN.
--- NOTE | 2018-07-28 20:45 | NUR ---
HELPED PT TO THE BSC AND BACK TO BED. SCD'S ON. BEDSIDE TABLE AND CALL LIGHT WITHING REACH.
--- NOTE | 2018-07-28 21:11 | NUR ---
VITALS AND I&OS DONE AND CHARTED. BEDSIDE TABLE AND CALL LIGHT IN REACH. INFORMED RN SERENITY OF HIGH B\P. PT NEEDS NOTHING MORE AT THIS TIME.
--- NOTE | 2018-07-28 21:30 | NUR ---
ASSESSMENT COMPLETE. SCHEDULED MEDICATIONS ADMINISTERED (SEE EMAR). PT A/OX4, RATES PAIN 1-2/10, DENIES NEED FOR PHARMACOLOGIC INTERVENTION. ABDOMINAL INCISION REINFORCED WITH ABD PAD AND TAPE TO PREVENT BLEEDING (SEE PREVIOUS NOTE). NO BLEEDING AT THIS TIME, WILL MONITOR. SITE WELL APPROXIMATED. TPN, LIPIDS, AND IV ABX INFUSING PER MD ORDERS, CENTRAL LINE DRESSING INTACT. BLOOD RETURN NOTED. EDEMA TO SCROTUM AND BILATERAL FEET NOTED. FEET ELEVATED ON PILLOW. NO FURTHER NEEDS, CALL LIGHT IN REACH.
--- NOTE | 2018-07-29 02:30 | NUR ---
SCHEDULED IV ABX INFUSING, SITE WNL. PT APPEARS COMFORTABLE, NO DISTRESS NOTED. CALL LIGHT IN REACH. BED ALARM ON FOR SAFETY.
--- NOTE | 2018-07-29 03:19 | NUR ---
HELPED PT BACK TO BED FROM THE BSC. SCD'S TURNED BACK ON. BEDSIDE TABLE AND CALL LIGHT IN REACH. PT NEEDS NOTHING MORE AT THIS TIME.
--- NOTE | 2018-07-29 03:30 | NUR ---
IV LIPIDS COMPLETE. TUBING DISCONTINUED. PIPE STEM SAWYER AWARE. TPN REMANS INFUSING, SITE WNL. PT APPEARS COMFORTABLE, NO DISTRESS NOTED. CALL LIGHT IN REACH, BED ALARM ON FOR SAFETY.
--- NOTE | 2018-07-29 05:38 | NUR ---
HELPED PT GET TO THE BSC AND BACK TO BED WITH HIS FWW. SCD'S PLUGGED BACK IN. GARBAGES EMPTIED. VITALS AND I&OS DONE AND CHARTED. BEDSIDE TABLE AND CALL LIGHT IN REACH.
--- NOTE | 2018-07-29 05:45 | NUR ---
ASSESSMENT COMPLETE, NO NEW CONCERNS. PT DROWSY, EASILY AWAKENS. IV ABX INFUSING, SITE WNL. TPN ALSO INFUSING , SITE WNL. SCHEDULED BLOOD DRAW COMPLETE, DISTAL LUMEN HEP LOCKED. SUSAN IN ROOM TO ASSESS PT. 4X4 TO ABDOMEN, REINFORCED WITH TAPE. SUSAN AWARE. VSS, SCHEDULED METOPROLOL ALSO GIVEN. SHAY DRAINS EMPTIED BY DIEGO MAY. CALL LIGHT IN REACH, BED ALARM ON FOR SAFETY.
--- NOTE | 2018-07-29 07:00 | NUR ---
BEDSIDE HANDOFF REPORT RECEIVED FROM INDEPENDENT PRODUCER RN. PT RESTING IN BED. PT DENIES NEEDS AT THIS TIME.
--- NOTE | 2018-07-29 08:10 | NUR ---
PATIENT IS AWAKE BUT SAID HE WASNT UP FOR ANY BREAKFAST RIGHT NOW, RN WAS IN THE ROOM AT THE TIME. PATIENT HAS WATER AND CALL LIGHT IN REACH
--- NOTE | 2018-07-29 08:32 | NUR ---
PT RESTING IN BED. PT COMPLAINT OF PAIN 2/10 AT REST, 3-4/10 WITH MOVEMENT. PT ON ROOM AIR, LUNG SOUNDS CLEAR. PT DENIES NAUSEA, BOWEL TONES ACTIVE, POOR APPETITE, TPN INFUSING. PT WITH CENTRAL LINE, IV ABX INFUSING. PT WITH MIDLINE INCISION, GAUZE PRESENT FOR RECNT BLEEDING, CDI, NO LEATHA, SHAY DRAIN X2 SEROUS FLUID. PT WITH EDEMA TO BLE, WORSE IN FEET, EDEMA IN SCROTUM. CMS INTACT, PULSES STRONG. PT ON TELE, HEART IRREGULAR. PT ASSISTED TO SIT AT EDGE OF BED TO VOID. PT TOOK AUGMENTIN WITH PUDDING, HAVING DIFFICULTY WITH SIZE OF PILL. PT DENIES OTHER NEEDS AT THIS TIME.
--- NOTE | 2018-07-29 11:26 | NUR ---
PATIENT CONTINUES ON TPN 2 L 20% DEXTROSE, 5% AMINO ACIDS AND 500 ML 20% LIPIDS . DIET HAS BEEN UPGRADED TO SOFT AND BITE-SIZED. PATIENT IS SLEEPING BUT AT BEDSIDE. HE HAD A FEW BITES OF PUREED PEARS THIS MORNING. ASKED ABOUT ENSURE AND I HIGHLY RECOMMENDED IT. SHE SAID SHE WILL TRY TO GET HIM TO DRINK ONE LATER. WILL CONTINUE TO MONITOR PO INTAKE AND TOLERANCE OF FOOD SO TPN CAN BE D/C'D WHEN APPROPRIATE.
--- NOTE | 2018-07-29 11:43 | NUR ---
DR. DAVIS CALLED ABOUT PAIN MEDICATION, TELEPHOEN ORDER FOR TYLENOL 650 MG Q8PRN FOR PAIN. ALSO DISCUSSED PT DIFFICULTY WITH AUGMENTIN TABLET, ORDER TO DISCUSS CRUSHING TABLET WITH PAHMEHRANACIST. PHARMACIST CALLED, WILL LOOK FOR LIQUID SUBSTITUTE.
--- NOTE | 2018-07-29 13:38 | NUR ---
MD TO BEDSIDE TO EVALUATE PT. PT RESTING ING BED, QUIETLY. PT DENIES NEEDS AT THIS TIME.
--- NOTE | 2018-07-29 13:50 | NUR ---
PATIENT RESTING IN BED. SON IN ROOM. PATIENT IS GOING TO USE BATHROOM. PATIENT USES A WALKER. ONE PERSON ASSISTING. PATIENT BACKS TO BED. CALL LIGHT WITHIN REACH. NO OTHER NEEDS AT THIS TIME
--- NOTE | 2018-07-29 16:22 | NUR ---
IV MAGNESIUM INFUSION COMLPETED, CENTRAL LINE LUMEN HEP LOCKED. NEW TPN INFUSING, DOUBLE CHECK WITH AZIZA RIGGINS. PT UP TO BATHOOM, VOIDED. PT TOOK ORL AUGMENTIL LIQUID, TOLERATED BETTER THAN PILL THIS AM. VISITORS AT BEDSIDE. PT DENIES OTHER NEEDS AT THIS TIME.
--- NOTE | 2018-07-29 16:43 | NUR ---
PT ALERT/ORIENTED, FATIGUED TODAY. PT ONB ROOM AIR, LUNG SOUNDS CLEAR. PT WITH MINIMAL PAIN, HAS NOT REQUIRED PRN PAIN MEDICATION. PT ADVANCED TO SOFT BITE SIZED DIET, SMALL APPETITE, DENIES NAUSEA, BOWEL TONES HYPOACTIVE TO ACTIVE, HAD 2 LOOSE BM TODAY. PT RECEIVING TPN, IV FLAGYL, MAG RIDER, PO AUGMENTIN. PT WITH CENTRAL LINE TO RIGHT NECK. PT UP WITH SBA WITH FWW, WALKED IN [place] WITH P.T. PT WITH EDEMA TO SCROTUM AND BLE, RECEIVED IV LASIX X2, VOIDING QS.
--- NOTE | 2018-07-29 19:00 | NUR ---
SHIFT REPORT RECEIVED FROM [facility] AZIZA HENDRICKS AT BEDSIDE. PT RESTING IN BED, EYES CLOSED, RR WNL. NO DISTRESS NOTED. TPN INFUSING PER MD ORDERS, CENTRAL LINE DRESING INTACT. 4X4 AND TAPE TO ABDOMINAL INCISION, NO BLEEDING NOTED. WILL MONITOR. PT VERBALIZES NEED TO VOID, DIEGO DEE IN ROOM TO ASSIST PT. CALL LIGHT IN REACH.
--- NOTE | 2018-07-29 19:02 | NUR ---
PT CENTRAL LINE DRESSING CHANGED. PT TOLERATED WELL.
--- NOTE | 2018-07-29 20:30 | NUR ---
ASSESSMENT COMPLETE, SCHEDULED MEDICATIONS ADMINISTERED (SEE EMAR). PT DROWSY, EASILY AWAKENS. VSS, PT ON TELE #8, SV RHYTHM, HR WNL. TPN INFUSING PER MD ORDERS. CENTRAL LINE DRESSING INTACT. DISTAL LUMEN HEP LOCKED, IV ABX INFSUING THROUGH MEDIAL LUMEN. ABDOMINAL INCISION COVERED WITH 4X4 AND TAPE. NO SIGNS OF BLEEDING NOTED. WILL MONITOR. BOWEL TONES HYPOACTIVE TO ACTIVE, PT DENIES NAUSEA. SCD'S IN PLACE, PT DENIES FURTHER NEEDS, CALL LIGHT IN REACH. BED ALARM ON FOR SAFETY.
--- NOTE | 2018-07-29 21:06 | NUR ---
CHARGE NURSE ROUNDING NOTE: PT RESTING, EYES CLOSED, R CENTRAL LINE PATENT, TPN INFUSING, NO DISTRESS NOTED AT THIS TIME. CALL LIGHT AND FLUIDS AT BEDSIDE
--- NOTE | 2018-07-29 22:55 | NUR ---
PT INCONTINENT OF URINE. PT UP SBA WITH FWW TO BSC. PT STATES, "I FEEL LIKE AN IDIOT". NEW ATTENDS IN PLACE, THERAPEUTIC COMMUNICATION PROVIDED. PT BACK IN BED, DENIES ADDITIONAL NEEDS. CALL LIGHT IN REACH, BED ALARM IN PLACE. TPN INFSUING PER MD ORDERS.
--- NOTE | 2018-07-30 01:25 | NUR ---
PT RESTING IN BED, EYES OPEN, DENIES NEEDS. TPN INFUSING PER MD ORDERS, CENTRAL LINE DRESSING INTACT. CALL LIGHT IN REACH.
--- NOTE | 2018-07-30 02:20 | NUR ---
SCHEDULED MEDICATIONS ADMINISTERED (SEE EMAR). VSS, PT ON RA. AFTER VOIDING AND RETURNING TO BED, PT HAD BRIEF COUGHING EPISODE. CLEAR SPUTUM/EMESIS NOTED. PT UNABLE TO DETERMINE IF IT WAS R/T NAUSEA OR COUGHING. PRN ZOFRAN OFFERED, PT KINDLY DECLINED AND STATED, "NOT RIGHT NOW". NO FURTHER NEEDS, IV ABX INFUSING PER MD ORDERS, BLOOD RETURN NOTED. CALL LIGHT IN REACH.
--- NOTE | 2018-07-30 03:21 | NUR ---
ASSESSMENT COMPLETE, NO NEW CONCERNS. PT IN BED, RESTING, EYES OPEN. NO DISTRESS NOTED, PT HAS SOMEWHAT OF FLAT AFFECT, CAPITAN GRANDE BAND. IV ABX COMPLETE, MEDIAL LUMEN HEP LOCKED. TPN INFUSING PER MD ORDERS, CENTRAL LINE INTACT. NO BLEEDING OR DRAINAGE TO ABDOMINAL INCISION, WILL MONITOR. SMALL 4X4 AND TAPE REMAINS IN PLACE. COUGHING/NAUSEA HAS RESOLVED, PT DENIES NEED FOR NAUSEA MEDICATION. WILL MONITOR, HOB ELEVATED. NO FURTHER NEEDS, CALL LIGHT IN REACH.
--- NOTE | 2018-07-30 04:32 | NUR ---
HELPED PT TO THE BATHROOM AND BACK TO BED WITH HER FWW. SCD'S PLUGGED BACK IN. BEDSIDE TABLE AND CALL LIGHT IN REACH.
--- NOTE | 2018-07-30 04:44 | NUR ---
PT SLEPT ON AND OFF THROUGHOUT THE SHIFT. TPN AND IV ABX INFUSING, CENTRAL LINE DRESSING INTACT. VSS, PT ON RA. TELE #8, HR WNL, SCHEDULED METOPROLOL. SBA W/ AMBULATION W/ FWW. PT VOIDING QS, NO BM THIS SHIFT. EDEMA TO BLE AND SCROTUM. INTERMITTENT PRODUCTIVE COUGH. NO NEW BLEEDING AT ABDOMINAL INCISION.
--- NOTE | 2018-07-30 05:50 | NUR ---
scheduled blood draw from central line completed by charge account identification clerk [email or web address].
--- NOTE | 2018-07-30 06:38 | NUR ---
pt up to br with 1pa and fww, tolerated well, voided, did own am care, back to bed.
--- NOTE | 2018-07-30 07:05 | NUR ---
BEDSIDE HANDOFF REPORT RECEIVED FROM FACILITY SALES AND ADMIN RN. PT SLEEPING, LEFT UNDISTURBED. TPN INFUSING.
--- NOTE | 2018-07-30 08:40 | NUR ---
PT RESTING IN BED. PT ASSISTED TO BATHROOM, VOIDED, ASSISTED BACK TO BED. PT ON ROOM AIR, LUNG SOUNDS CLEAR. PT RATES PAIN 2/10, DECLINES NEED FOR PAIN MEDICATION. PT ON TELE # 8, IV METOPROLOL GIVEN. PT DENIES NAUSEA, BOWEL TONES ACTIVE, ASSISTED TO ORDER BREAKFAST, DISCUSSED IMPROTANCE OF NUTRITION AND ROLE OF TPN AT THIS TIME. PT WITH EDEMA TO BLE AND SCROTUM, IMPROVED FROM YESTERDAY, SCDS IN PLACE. MRONING MEDICATIONS ADMINISTERED. DISCUSSED PLAN OF CARE FOR THE DAY, INCLUDING INCREASED WALKING IN [place]. PT DENIES OTHER NEEDS AT THIS TIME.
--- NOTE | 2018-07-30 09:30 | NUR ---
IV FLAGYL INFUSION COMPLETED. PT ASSISTED TO BATHROOM, VOIDED. CENTRAL LINE HEP LOCKED. PT SITTING AT EDGE OF BED, EATING BREAKFAST.
--- NOTE | 2018-07-30 11:49 | NUR ---
IV METOPROLOL GIVEN PER ORDER. PT ASSISTED TO BATHROOM, VOIDED. PT WALKED 1 LAP IN [place]. PT DONE WITH BREAKFAST TRAY, ATE YOGURT AND SMALL AMOUNT OF OMELET. PT NOW RESTING IN BED. PT DENIES OTHER NEEDS AT THIS TIME.
--- NOTE | 2018-07-30 15:13 | NUR ---
PT WALKING IN [place] WITH Roel
--- NOTE | 2018-07-30 16:11 | NUR ---
TPN AND LIPID INFUSION STARTED, DOESBLE VERICATION OF MEDICATION WITH MAHOGANY RN, RATE VERIFIED WITH TRISHA RN. PT RESTING IN BED. PT COMPLETED SHOWER. PT DENIES OTHER NEEDS AT THIS TIME.
--- NOTE | 2018-07-30 18:30 | NUR ---
PT GIVEN 5 MG IV MOTOPROLOL PER ORDER. PT BEING ASSISTED BY AIDE TO WALK IN [place].
--- NOTE | 2018-07-30 18:33 | NUR ---
PT ON ROOM AIR, LUNG SOUNDS CLEAR. PT DENIES PAIN. PT WALKED IN [place] X3 TODAY. PT TRYIGN TO IMRPOVE ORAL INTAKE, CONTINUES TO BE SLOW, TPN AND LIPIDS INFUSING. PT BOWEL TONES HYPERACTIVE THIS AFTERNOON, DENIES NAUSEA. PT RECEIVING IV METOPROLOL FOR SVT RUNS, ON TELE #8. ABD INCISION OPEN TO AIR, SHAY DRAIN X2. PT SHOWERED TODAY. EDEMA TO BLE AND SCROTUM IMPROVING.
--- NOTE | 2018-07-30 20:43 | NUR ---
PT JUST RETURNING TO BED FROM RESTROOM. ALERT AND ORIENTED. RATES ABD PAIN 1/10. DENIES NAUSEA, SOB, OR OTHER CONCERN AT THIS TIME. TPN AND LIPIDS INFUSING IN CENTRAL LINE. ALL 3 LUMENS FLUSH EASILY WITH GOOD BLOOD RETURN, DRESSING CDI. MIDLINE ABD INCISION OPEN TO AIR. NO LEATHA, SCANT AMOUNT OF OLD DRIED BLOOD NOTED, WELL APPROXIMATED. EXCORIATION BOGGS ALONG EITHER SIDE OF INCISION SITE, SUPERFICIAL, WITHOUT DRAINAGE. APPEARS TO BE FROM PREVIOUS DRESSING. SHAY DRAINX2 NOTED TO RIGHT LQ. PUTTING OUT SCANT AMOUNT OF SEROUS DRAINAGE. INSERTION SITE WITH SMALL AMOUNT OF REDNESS, SUTURES NOTED, OTHERWISE INTACT. TELE MONITOR IN PLACE. SCD'S ON. PT NOW RESTING IN BED. CALL LIGHT WITHIN REACH.
--- NOTE | 2018-07-30 21:00 | NUR ---
SENIOR PROJECT ENGINEER ROUNDING NOTE. PT DENIES QUESTIONS OR CONCERNS AT THIS TIME. CALL LIGHT IN REACH.
--- NOTE | 2018-07-30 23:56 | NUR ---
PT IN BED, APPEARS TO BE SLEEPING. EYES CLOSED, RESP EVEN AND UNLABORED.
--- NOTE | 2018-07-31 01:53 | NUR ---
pt resting in bed, appears to be sleeping. eyes closed, resp even and unlabored.
--- NOTE | 2018-07-31 03:24 | NUR ---
PT CALLED FOR ASSISTANCE. HAD LARGE INCONTINENT VOID IN BED. ASSISTED PT SBA WITH WALKER TO RESTROOM. CLEANED PT AND BED. AMB BACK TO BED. PT REPORTING 3/10 ABD PAIN, MEDICATED WITH PRN TYLENOL. CALL LIGHT WITHIN REACH.
--- NOTE | 2018-07-31 06:15 | NUR ---
PT DROWSY IN BED, AWAKENS EASILY TO VOICE. DENIES PAIN OR NAUSEA AT THIS TIME. LIPIDS COMPLETE, TPN INFUSING INTO CENTRAL LINE. DRESSING CDI. CALL LIGHT WITHIN REACH.
--- NOTE | 2018-07-31 07:55 | NUR ---
PT SITTING UPRIGHT IN BED, WATCHING TV AND EATING BREAKFAST. PT WAS ALSO PROVIDED WITH A STRAWBERRY ENSURE AND ENCOURAGED TO EAT WHAT HE CAN TOLERATE. PT ALSO ENCOURAGED TO USE CALL LIGHT WHEN HE FEELS READY TO AMBULATE. CALL LIGHT AND H20 IN REACH.
--- NOTE | 2018-07-31 09:09 | NUR ---
PT SITTING IN FOWLERS POSITION IN BED, TOLERATES 65% OF BREAKFAST. PT DENIES NAUSEA OR SOB AND STATES HE IS COMFORTABLE. AM MEDS ADMINISTERED AND ASSESSMENT COMPLETED. PT UP TO RESTROOM WITH 1PA AND FWW.
--- NOTE | 2018-07-31 10:36 | NUR ---
PATIENT AMBULATED 1LAP AROUND THE FLOOR, HE TOLERATED IT WELL, HE SPOKE ABOUT WANTING A SHOWER SOMETIMES RIGHT BEFORE OR AFTER LUNCH.
--- NOTE | 2018-07-31 10:50 | NUR ---
TPN RATE DECREASED TO 41.9 ML/HR PER TPN WEANING ORDER. PT EDUCATED ON PURPOSE OF WEAN AND WHAT TO EXPECT. PT RESTING IN BED, DENIES OTHER NEEDS AT THIS TIME. TRISHA ERVIN DOUBLE VERIFCATION OF TPN RATE CHANGE.
--- NOTE | 2018-07-31 11:55 | NUR ---
PT RESTING SUPINE IN BED VISITING WITH HIS WHO IS AT BEDSIDE. CALL LIGHT AND H2O IN REACH. TPN CONTINUES AT REDUCED RATE. PT STATES PAIN IS TOLERABLE AT 1/10. PT DENIES NEEDS/CONCERNS AND APPEARS TO BE IN NO ACUTE DISTRESS.
--- NOTE | 2018-07-31 14:15 | NUR ---
pt alert and oriented, resting in semi fowlers position in bed watching tv. Pt assessment completed, 1400 meds administered -see emar. Pt denies nausea or sob and states pain is tolerable at 1/10. Pt denies need for po tylenol. call light and h2o in reach.
--- NOTE | 2018-07-31 17:05 | NUR ---
PT DECLINED DINNER TRAY BUT TOLERATED [place] AND ENSURE. PT STATES HE JUST DOESN'T HAVE AN APPETITE FOR DINNER. DIEGO JAVED IN TO ASSIST PT ON WALK. PT DENIES PAIN, NAUSEA OR SOB. NO NEEDS/CONCERNS VOICED. TPN DC'D AND D5LR INFUSING SEE EMAR. CALL LIGHT AND H2O IN REACH.
--- NOTE | 2018-07-31 17:19 | NUR ---
patient went for a walk 1lap around the floor and tolerated it well
--- NOTE | 2018-07-31 19:52 | NUR ---
drowsy, awakens easily, no c/o pain. R central line intact. infusing. scds in place. call light, yaunker and fluids at bedside, hib elevatd to his comfort
--- NOTE | 2018-07-31 19:55 | NUR ---
ASSOCIATE PROFESSOR OF COMMUNICATION ROUNDING NOTE. PT RESTING IN BED WITH EYES CLOSED, WAKES EASILY WHEN MASON TENDER RESTORATION LABOR ENTERS THE ROOM. PT'S PRIMARY RN IN ROOM. PT DENIES QUESTIONS OR CONCERNS. WHITE BOARD UPDATED. PT DENIES FURTHER NEEDS, CALL LIGHT IN REACH.
--- NOTE | 2018-07-31 22:53 | NUR ---
awake, no c/o pain. abd incision with edges well aprrox. open to air, red edges. tender, scds inplace
--- NOTE | 2018-08-01 01:37 | NUR ---
ANSWERED CALL LIGHT PATIENT WANTED TO USE THE RESTROOM. 1 SBA USING WALKER. PATIENT IS BACK IN BED. SCD'S BACK ON. CALL LIGHT WITHIN REACH.
--- NOTE | 2018-08-01 03:22 | NUR ---
ANSWERED CALL LIGHT. SBA TO THE BATHROOM AND BACK TO BED USING WALKER.
--- NOTE | 2018-08-01 04:30 | NUR ---
resting, no resp distress, R central line intact, call light at bedside.
--- NOTE | 2018-08-01 05:21 | NUR ---
SBA TO THE BATHROOM USING WALKER AND BACK TO BED. SCD BACK ON. CALL LIGHT IN REACH. V/S AND I&O TAKEN AND CHARTED. DENIES OTHER NEEDS AT THIS TIME.
--- NOTE | 2018-08-01 06:18 | NUR ---
R CENTRAL LINE PATENT. INFUSING, NO C/O ADVERSE REACTION TO ABX. MIDLINE INCISION OPEN TO AIR, EDGES WELL APPROXIMATED, PINKISH COLORED. DRY. 2 SHAY WITH VERY SCANT AMOUNT OF CLEAR SEROUS DRAINAGE. PASSING GAS AND HAVING SMEAR OF BM. TOLERATING FLUIDS AND DIET FAIR, VERY SMALL BITES, ENSURE OFFERED. NO N/V. UP TO BR USING 1PA AND FWW. NO C/O PAIN OR RESP DISTRESS THIS SHIFT
--- NOTE | 2018-08-01 07:08 | NUR ---
RECIEVED BEDSIDE REPORT FROM AZIZA ROJAS. PT RESTING COMFORTABLY, IVF AT 50ML/HR. CENTRAL LINE LUMENS HEPLOCKED. 2 SHAY DRAINS WITH VERY MINIMAL OUTPUT.
--- NOTE | 2018-08-01 08:22 | NUR ---
MIDLINE INCISION C/D/I. AREA OF ESCHAR IN INSISION IS DRY, EDGES ARE MOSTLY WELL APROXIMATED, EXCEPT WHERE THE ESCHAR IS. EDGES PINK. NO DRAINAGE. PT IS EATING BREAKFAST.
--- NOTE | 2018-08-01 10:23 | NUR ---
PT UP WALKING IN HALLS WITH PHYSICAL THERAPY. ONE LAP WITH WALKER, THEN RETURNED WALKER TO ROOM AND WALKED WITH SBA/LIGHT CONTACT. PT REPORTED NO DIZZINESS, NO NAUSEA, NO PAIN.
--- NOTE | 2018-08-01 19:34 | NUR ---
eating reg food, hob elevated, CL dressing intact. cooperative
--- NOTE | 2018-08-01 20:34 | NUR ---
in bed, visiting with , no c/o pain.
--- NOTE | 2018-08-01 21:34 | NUR ---
coop with assessment
--- NOTE | 2018-08-01 22:00 | NUR ---
SBA TO THE BATHROOM AND BACK TO BED. DENIES ANY OTHER NEEDS AT THIS TIME.
--- NOTE | 2018-08-02 01:12 | NUR ---
RESTING, EYES CLOSED, NO RESP DISTRESS. CL INTACT. CALL LIGHT AND FLUIDS AT BEDSIDE.
--- NOTE | 2018-08-02 02:51 | NUR ---
AWAKE, SMILING, NO C/O PAIN, NO SOB. NO REQUESTS, UP TO BR INDEPENDENTLY, VOIDED YELLOW URINE. BACK TO BED, SCDS OFF AT THIS TIME. CALL LIGHT AT BEDSIDE
--- NOTE | 2018-08-02 03:49 | NUR ---
ANSWERED CALL LIGHT. HELPED PATIENT USE THE URINAL. @[id number] ANSWERED CALL LIGHT TO TAKE URINAL OFF AND EMPTIED IT.
--- NOTE | 2018-08-02 03:58 | NUR ---
SBA TO THE BATHROOM AND BAck TO BED.
--- NOTE | 2018-08-02 06:06 | NUR ---
HAS SLEPT OFF AND ON, SMILING, R CENTRAL LINE HEP LOCKED, PATENT, NO C/O ADVERSE REACTIN TO ABX. TOLERATING VERY SMALL AMOUNTS OF REGULAR/SOFT FOODS. NO N/V . ABD INCISION OPEN TO AIR. HAS [address] DRAINING SMALL AMOUNTS OF #1-SS DRAINAGE, #2 WITH YELLOW DRAINAGE. INSERTION SITE AND EDGES AROUND ABD INCISION PINKISH/RED, DRY. SEMI INDEPENDENT IN ROOM, 1PA/FWW. CALL LIGHT AT BEDSIDE
--- NOTE | 2018-08-02 07:16 | NUR ---
RECIEVED BEDSIDE REPORT FROM AZIZA ROJAS. PT IS SLEEPING SOUNDLY, BREATHING EVEN AND UNLABORED. CENTRAL LINE HEP LOCKED. SCD ON. VOIDING WELL.
--- NOTE | 2018-08-02 08:10 | NUR ---
SPOKE WITH PATIENT IN ROOM. PATIENT IS LAYING IN BED, AWAKE. DISCUSSED THAT HE IS GETTING CLOSER TO DISCHARGE, HE STATES HE STILL INTENDS TO GO HOME WITH HIS . THEY HAVE JUST MOVED INTO A NEW HOME AND HE HAS NO CONCERNS ABOUT RETURNING THERE. WE DICUSSED HIS NEEDING TO AMBULATE AND CDB AFTER DISCHARGE. HE STATES UNDERSTANDING. HE STATES UNDERSTANDING OF HIS NEEDIG TO FOLLOW UP WITH SURGEON AND PCP. HE STATES UNDERSTANDING THAT HE SHOULD ASK QUESTIONS OF ANY MEDICATIONS OR DISCHARGE INSTRUCTIONS TO MAKE SURE HE FULLY UNDERSTANDS WHAT HE IS TAKING, AND WHY. PATIENT DENIES FURTHER QUESTIONS AT THIS TIME.
--- NOTE | 2018-08-02 09:05 | NUR ---
PT RESTING IN BED, DECLINED TO HAVE SCD ON. IV ABX INFUSING IN CENTRAL LINE. CASE MANAGEMENT IN TO SEE PT RE: DISCHARGE. PER DR DAVIS NURSE NOTIFY ORDER, SUTURE REMOVAL KIT IS AT BEDSIDE ABOVE SINK. ULTRASOUND IN TO DO ECHO.
--- NOTE | 2018-08-02 09:39 | NUR ---
CALLED PHARMACY TO DISCUSS [phone] ABX. PHARMACY TO MIX AND BRING OVER.
--- NOTE | 2018-08-02 10:16 | NUR ---
PATIENT IN BED FINISHING YOGURT, AT BEDSIDE. CALL LIGHT IN REACH. NO FURTHER NEEDS AT THIS TIME.
--- NOTE | 2018-08-02 10:32 | NUR ---
PT UP WITH PHYSICAL THERAPY. BED LINENS CHANGED BY RN WHILE HE WAS OOB. FRESH WATER GIVEN. IV ABX HOOKED UP. BLOOD RETURN ON ALL LUMENS. WILL HEP LOCK LAST LUMEN WHEN ABX ARE DONE. PHYSICAL THERAPY RECOMMENDS OUT PATIENT THERAPY FOR STRENGTHENING AND BALANCE AFTER DISCHARGE.
--- NOTE | 2018-08-02 13:28 | NUR ---
PT EATING LUNCH. APPEARS COMFORTABLE AT THIS TIME. HIS HAD QUESTIONS ABOUT THE IV PUMP. RN EXPLAINED THAT THE PUMP IS OFF, BUT AVAILABLE BECAUSE HE STILL HAS ABX DOSES.
--- NOTE | 2018-08-02 14:17 | NUR ---
PATIENT IN BED RESTING WITH EYES CLOSED, RN IN ROOM. CALL LIGHT IN REACH. NO FURTHER NEEDS AT THIS TIME.
--- NOTE | 2018-08-02 14:48 | NUR ---
PT FAST ASLEEP, WILL FOLLOW UP
--- NOTE | 2018-08-02 15:12 | NUR ---
PT UP WALKING IN HALLS WITH SEED COLLECTOR. TOLERATING WELL. CENTRAL LINE HEP LOCKED.
--- NOTE | 2018-08-02 16:44 | NUR ---
CALLED LAB RE: STAT LABS. ADAM IN LAB SAID "WE HAVE A BUNCH IN FRONT OF YOU, WE'LL GET THERE SOON WE CAN.".
--- NOTE | 2018-08-02 17:16 | NUR ---
CALLED ON CELL PHONE TO OBTAIN DISCHARGE ORDER TO TRANSFER PT TO HIGHER LEVEL OF CARE, ORDER GIVEN AND TO CONTINUE TRANSFER CARE
--- NOTE | 2018-08-02 18:01 | NUR ---
CALLED REPORT TO ALYSSA AT [facility] [phone]. GAVE HOSPITAL COURSE INFORMATION, PLAN. ADVISED HE JUST LEFT [facility] [place], VIA [facility].
== END 2018-08-02 17:53 | disposition short-term general hospital (02) | DRG 329 ==
LOC: ED 03:46 → MS 03:48 → ED 06:36 → MS 06:48 → ED 06:48 → MS 07-18 03:58 → CCU 07-22 15:45 → MS 07-28 16:00
PROVIDERS: ADMIT Colon & Rectal Surgery
PROC: 02HV33Z Insertion of Infusion Device into Superior Vena Cava, Percutaneous Approach (ICD-10-PCS; 2018-07-22)
PROC: 3E0T3BZ Introduction of Anesthetic Agent into Peripheral Nerves and Plexi, Percutaneous Approach (ICD-10-PCS; 2018-07-22)
PROC: 0DQB0ZZ Repair Ileum, Open Approach (ICD-10-PCS; principal; 2018-07-22 13:30)
PROC: 0W9G00Z Drainage of Peritoneal Cavity with Drainage Device, Open Approach (ICD-10-PCS; 2018-07-22 13:30)
DX: K63.1 Perforation of intestine (nontraumatic) (principal); K65.1 Peritoneal abscess; G93.41 Metabolic encephalopathy; I33.0 Acute and subacute infective endocarditis; N17.9 Acute kidney failure, unspecified; J90 Pleural effusion, not elsewhere classified; I47.1 Supraventricular tachycardia; E44.0 Moderate protein-calorie malnutrition; G89.18 Other acute postprocedural pain; E87.70 Fluid overload, unspecified; G47.33 Obstructive sleep apnea (adult) (pediatric); K57.90 Diverticulosis of intestine, part unspecified, without perforation or abscess without bleeding; E86.0 Dehydration; I34.0 Nonrheumatic mitral (valve) insufficiency; E83.39 Other disorders of phosphorus metabolism; E87.6 Hypokalemia; E83.51 Hypocalcemia; E83.42 Hypomagnesemia; Z87.891 Personal history of nicotine dependence; Z88.5 Allergy status to narcotic agent; Z88.8 Allergy status to other drugs, medicaments and biological substances
CPT/HCPCS: 00790; 36415; 51798; 64488; 71045; 74018; 74022; 74176; 74177; 74250; 76942; 77001; 80048; 80053; 80061; 81001; 83605; 83690; 83735; 83880; 84100; 84134; 85025; 85610; 85651; 85730; 87040; 87070; 87075; 87077; 87186; 87205; 93306; 94760; 96361; 96374; 97110; 97116; 97162; 97530; 99285-25; J0131; J0295; J0330; J0610; J0692; J0696; J1100; J1170; J1644; J1720; J1885; J1940; J2250; J2405; J2550; J2704; J2765; J2795; J3010; J3430; J3475; J3480; J7030; J7060; J7120; Q9967

== ENCOUNTER 2020-12-23 13:50 | Emergency (ER) | payer MEDICARE ==
[~2020-12-23] VITALS: Ht 172.7 cm; Wt 68.9 kg
[~2020-12-23 13:50] MED LIST changes: +ADULT ONE DAI200 MCG PO; +LACTULOSE20 GM/30 M PO; +LEVAQUIN500 MG PO; +NITROFURANTOIN25 MG PO; +OCUVITE TABLET1 EAC1; +ONDANSETRON ODT4 MG PO; +SENNA8.6 MG PO; +TRANSDERM-SCOP1 EACH TOP; +ZOFRAN4 MG SL
== END 2020-12-23 14:40 | disposition home or self-care (01) ==
LOC: ED 13:50
DX: J38.3 Other diseases of vocal cords (principal); Z88.8 Allergy status to other drugs, medicaments and biological substances; Z88.5 Allergy status to narcotic agent
CPT/HCPCS: 99284

== ENCOUNTER 2021-11-15 08:01 | Emergency (ER) | payer MEDICARE ==
[~2021-11-15] VITALS: Ht 172.7 cm; Wt 68.9 kg
== END 2021-11-15 10:31 | disposition home or self-care (01) ==
LOC: ED 08:01
DX: K59.00 Constipation, unspecified (principal); R10.31 Right lower quadrant pain; G47.30 Sleep apnea, unspecified; Z88.8 Allergy status to other drugs, medicaments and biological substances; Z88.5 Allergy status to narcotic agent; Z79.899 Other long term (current) drug therapy
CPT/HCPCS: 36415; 74177; 80053; 85025; 99284-25; Q9967

== ENCOUNTER 2023-07-31 14:05 | Emergency (ER) | payer MEDICARE ==
[~2023-07-31] VITALS: Ht 172.7 cm; Wt 68.4 kg
[~2023-07-31 14:05] MED LIST changes: +COZAAR25 MG PO
[2023-07-31] MEDS ORDERED: ASPIRIN 81 MG CHEW PO ONE (14:15)
[2023-07-31] MEDS ORDERED: NITROGLYCERIN 0.4 MG SUBL SL PRN (14:15)
[2023-07-31 14:19] LABS: BASOPHILS 0.7 % (0-2); EOSINOPHILS 2.6 % (0-6); LYMPHOCYTES 25.2 % (24-44); MCH 32.1 (27-36); MCHC 32.7 g/dl (30-36); MCV 98.2 fl (81-99); MONOCYTES 6.8 % (0-12); NEUTROPHILS 64.7 % (39-80); PLATELET COUNT 146 K/uL (140-440); RBC 4.68 M/ul (4.3-5.7); RDW 14.3 (10.5-15.0)
[2023-07-31] MEDS ORDERED: BUDESONIDE8.43 ML NAS (14:22)
[2023-07-31 14:32] LABS: INR 1.03 (0.80-1.30); PROTIME 13.1 Sec (11.2-14.2)
[2023-07-31 14:45] LABS: ALBUMIN 3.5 g/dL (3.4-5.0); ALBUMIN/GLOBULIN RATIO 1.09 (1.1-2.4); ANION GAP 12.9 (7-21); BILIRUBIN, TOTAL 0.3 ng/dL (0.2-1.0); BUN/CREATININE RATIO 25.8 (6.0-28.6); CALCIUM 9.1 mg/dL (8.5-10.1); CREATININE, SERUM 0.93 mg/dL (0.70-1.30); MAGNESIUM 2.1 mg/dL (1.8-2.4); POTASSIUM 3.9 mmol/L (3.5-5.1); PROTEIN, TOTAL 6.7 g/dL (6.4-8.2)
--- NOTE | 2023-07-31 16:13 | EKG ---
[facility] [address] [facility] [place], [place] [address] Signed Sinus rhythm with marked sinus arrhythmia Otherwise normal ECG When compared with ECG of 13-JUL-2018 12:47, Sinus rhythm has replaced Junctional rhythm Confirmed by Alejandro Spencer ([id number]) on 07/31/2023 4:12:55 PM Electronically Signed By: ALEJANDRO SPENCER MD 07/31/23 1613 PATIENT NAME: WILDER KATZ SARAVANANJEANMARIEWANDA Electrocardiogram DATE OF : 42 PHYSICIAN: ALEJANDRO SPENCER MD REPORT #: [id number] REPORT IS CONFIDENTIAL AND NOT TO BE RELEASED WITHOUT AUTHORIZATION
[2023-07-31] MEDS ORDERED: CYCLOBENZAPRINE10 MG PO (16:29)
[2023-07-31 17:05] VITALS: BP 116/86
== END 2023-07-31 17:05 | disposition home or self-care (01) ==
LOC: ED 14:05
PROVIDERS: Family Medicine
DX: R07.89 Other chest pain (principal); I10 Essential (primary) hypertension; Z88.5 Allergy status to narcotic agent; Z88.8 Allergy status to other drugs, medicaments and biological substances
CPT/HCPCS: 36415; 71045; 80053; 83735; 83880; 84484; 85025; 85379; 85610; 87502; 93005; 93010; 99285-25; A9270; U0002

== ENCOUNTER 2024-07-31 21:11 | Emergency (ER) | payer MEDICARE ==
[~2024-07-31] VITALS: Ht 172.7 cm; Wt 76.0 kg
[~2024-07-31 21:11] MED LIST changes: +BUDESONIDE8.43 ML NAS; +CYCLOBENZAPRINE10 MG PO
[2024-07-31] MEDS ORDERED: IPRATROPIUM BRO15 ML NAS (21:34)
[2024-07-31 21:48] LABS: BASOPHILS 0.2 % (0.2-1.2); EOSINOPHILS 1.3 % (0.8-7.0); HEMATOCRIT 41.3 % (40.1-51.0); HEMOGLOBIN 13.8 g/dL (13.7-17.5); LYMPHOCYTES 15.2 % (21.8-53.1); MCH 32.4 PG (25.7-32.2); MCHC 33.4 g/dL (32.3-36.5); MCV 96.9 fL (79.0-92.2); MONOCYTES 6.2 % (5.3-12.2); NEUTROPHILS 76.8 % (34.0-67.9); PLATELET COUNT 166 K/uL (163-337); RBC 4.26 M/uL (4.63-6.08)
[2024-07-31 22:04] LABS: ALBUMIN 3.3 g/dL (3.4-5.0); ALBUMIN/GLOBULIN RATIO 1.14 (1.1-2.4); ALCOHOL, MEDICAL <3 ng/dL (<3); ALKALINE PHOSPHATASE 139 U/L (46-116); ALT (SGPT) 22 U/L (14-59); ANION GAP 10.8 (7-21); AST (SGOT) 13 U/L (15-37); BILIRUBIN, TOTAL 0.3 mg/dL (0.2-1.0); CALCIUM 9.1 mg/dL (8.5-10.1); CARBON DIOXIDE 28 mmol/L (21-32); CHLORIDE 103 mmol/L (98-107); CREATININE, SERUM 1.05 mg/dL (0.70-1.30); GLOMERULAR FILTRATION RATE,EST 71 mL/min (>60); POTASSIUM 3.8 mmol/L (3.5-5.1); PROTEIN, TOTAL 6.2 g/dL (6.4-8.2); UREA NITROGEN 25 mg/dL (7-18)
[2024-07-31] MEDS ORDERED: CYCLOBENZAPRINE10 MG PO (23:09)
[2024-07-31] MEDS ORDERED: CYCLOBENZAPRINE HCL 10 MG HOME.PACK PO ONE (23:15)
[2024-07-31 23:26] VITALS: BP 114/59
== END 2024-07-31 23:34 | disposition home or self-care (01) ==
LOC: ED 21:11
PROVIDERS: Family Medicine
DX: S00.81XA Abrasion of other part of head, initial encounter (principal); I10 Essential (primary) hypertension; G47.30 Sleep apnea, unspecified; W22.8XXA Striking against or struck by other objects, initial encounter; Z88.5 Allergy status to narcotic agent; Z88.8 Allergy status to other drugs, medicaments and biological substances
CPT/HCPCS: 36415; 70450; 71260; 74177; 80053; 85025; 99284-25; G0480; Q9967

== ENCOUNTER 2025-01-06 04:34 | Emergency (ER) | payer MEDICARE ==
[~2025-01-06] VITALS: Ht 172.7 cm; Wt 76.0 kg
[~2025-01-06 04:34] MED LIST changes: +IPRATROPIUM BRO15 ML NAS
[2025-01-06] MEDS ORDERED: CYCLOBENZAPRINE HCL 10 MG TAB PO ONE (05:00)
[2025-01-06 05:03] LABS: BASOPHILS 0.6 % (0.2-1.2); EOSINOPHILS 2.8 % (0.8-7.0); LYMPHOCYTES 26.9 % (21.8-53.1); MCH 31.9 PG (25.7-32.2); MCHC 33.0 g/dL (32.3-36.5); MCV 96.7 fL (79.0-92.2); MONOCYTES 7.4 % (5.3-12.2); NEUTROPHILS 62.2 % (34.0-67.9); RBC 4.79 M/uL (4.63-6.08)
[2025-01-06 05:13] LABS: INR 1.05 (0.80-1.30); PROTIME 13.3 Sec (11.2-14.2)
[2025-01-06 05:35] LABS: ALT (SGPT) 21.0 U/L (14-59); AST (SGOT) 13.0 U/L (15-37); GLOMERULAR FILTRATION RATE,EST 80.0 mL/min (>60); PROTEIN, TOTAL 7.1 g/dL (6.4-8.2); UREA NITROGEN 22.0 mg/dL (7-18)
[2025-01-06 06:48] VITALS: BP 143/64
--- NOTE | 2025-01-06 13:13 | EKG ---
[facility] [address] [facility] [place] [address] Signed Atrial fibrillation with slow ventricular response with a competing junctional pacemaker Abnormal ECG When compared with ECG of 31-JUL-2023 14:08, Atrial fibrillation has replaced Sinus rhythm Confirmed by Stephany Shafer DO ([id number]) on 01/06/2025 1:13:01 PM Electronically Signed By: STEPHANY SHAFER DO 01/06/25 1313 PATIENT NAME: WILDER KATZ Electrocardiogram DATE OF : 42 PHYSICIAN: STEPHANY SHAFER DO REPORT #: [id number] REPORT IS CONFIDENTIAL AND NOT TO BE RELEASED WITHOUT AUTHORIZATION
== END 2025-01-06 06:49 | disposition home or self-care (01) ==
LOC: ED 04:34
PROVIDERS: Family Medicine
DX: S43.401A Unspecified sprain of right shoulder joint, initial encounter (principal); M25.551 Pain in right hip; I10 Essential (primary) hypertension; G47.30 Sleep apnea, unspecified; Z88.5 Allergy status to narcotic agent; Z88.8 Allergy status to other drugs, medicaments and biological substances; W50.0XXA Accidental hit or strike by another person, initial encounter; Y93.84 Activity, sleeping
CPT/HCPCS: 36415; 71045; 73030; 80053; 83735; 83880; 84484; 85025; 85610; 93005; 93010; 99284-25